=== PATIENT | male | born 1950 | race Caucasian/White ===

== ENCOUNTER 2019-10-29 21:20 | Inpatient (IN) | payer MEDICARE, SELFPAY ==
[2019-10-29] VITALS (14 sets, daily range): BP systolic 129–151; BP diastolic 58–77; PULSE 100–128; RESP 20–26; TEMP 37.1; O2SAT 88–96
--- NOTE | 2019-10-29 21:30 | RT.EKG_ITS ---
APPROVED REPORT Exam: Resting ECG Patient Location: E HR:109 bpm ECG Measurements Heart Rate 109 AXIS IL 198 P 82 QRSd 97 QRS 113 QT 346 T 13 QTc 467 Conclusion Sinus tachycardia...rate> 99 Atrial premature complex...SV complex w/ short R-R interval Right axis deviation...QRS axis ( 91,269) Abnrm R prog, consider ASMI or lead placement...Q >30mS, diminished R, V1-V2
--- NOTE | 2019-10-29 21:30 | DI.CT_ITS ---
EXAM: CT CHEST PE CTA CLINICAL HISTORY: shortness of breath, fever, tachycardic, hypoxia. TECHNIQUE: Imaging Protocol: Axial CT angiography was performed with multi-slice acquisition and mu lti-planar and/or 3D reconstructions. CONTRAST MATERIAL: Intravenous: Omnipaque 350 Contrast volume:100 cc COMPARISON: No exams were available for comparison FINDINGS: Exam is somewhat limited by respiratory motion. Pulmonary Arteries: No evidence of filling defect to suggest pulmonary emboli. Tracheobronchial tree: Patent where visualized. Mediastinum and Mishel: No dominant adenopathy or fluid collection. Pulmonary parenchyma: No consolidation or dominant measurable mass. Emphysematous changes at the uppe r lobes.. Pleura: No effusion or pneumothorax. Heart: The heart is not dilated. coronary artery calcifications are seen. Aorta: Thoracic aorta non-dilated. Upper abdomen: Fatty liver. Small hiatal hernia. Bones: Degenerative disc changes. IMPRESSION: No evidence of pulmonary embolism or other acute abnormality. Mild emphysematous changes.. RADIATION DOSE DELIVERED: 530.57mGy.cm Total DLP DATA REPOSITORY: All CT scans at this facility are submitted to the National Radiology Data Registry (NRDR) Dose Index Registry (DIR) with the [employer] (ACR). RADIATION OPTIMIZATION: All CT scans at this facility use at least one of these dose optimization te chniques: automated exposure control; mA and/or kV adjustment per patient size (includes targeted exa ms where dose is matched to clinical indication); or iterative reconstruction.
[2019-10-29 22:11] LABS: Abs Immature Grans 0.21 10^3/uL (0.0-0.06); Absolute Basophil Count 0.04 10^3/uL (0.0-0.2); Absolute Lymphocyte Count 0.62 10^3/uL (1.2-3.4); Basophils % 0.2; HCT 43.7 % (40.0-50.0); HGB 14.2 g/dL (13.5-17.5); Lymphocytes % 3.1; MCH 29.3 pg (27.0-33.0); MCHC 32.5 % (32.0-36.0); MCV 90.3 fL (80-95); MPV 9.5 fL (8.0-11.0); Neutrophils % 90.7; Nucleated RBC 0 %; Platelet Count 261 10^3/uL (130-400); RBC 4.84 10^6/uL (4.36-5.78); RDW 12.8 % (11.8-14.1); RDW-SD 42.4 fL; WBC 20.07 10^3/uL (4.4-10.8)
[2019-10-29 22:15] LABS: Lactate 2.5 mmol/L (0.6-1.4)
--- NOTE | 2019-10-29 22:22 | W.ED.GENAD ---
Discharge Plan Disposition Patient Disposition: [facility] INPATIENT Condition: Critical Discharge Details Chief Complaint: Fever Clinical Impression: Cellulitis of left lower extremity, Sepsis Primary Care Provider: Martha Valera ED Provider: Nav Montes Home Meds and New Rx's Prescriptions: No Action calcium carbonate [Calcium 500] 500 mg calcium (1,250 mg) tablet 500 mg PO DAILY RF: 0 magnesium oxide 250 MG tablet 250 mg PO DAILY RF: 0 cinnamon bark 500 MG capsule 500 mg PO DAILY RF: 0 aspirin 81 MG tablet,delayed release (DR/EC) 81 mg PO PRN RF: 0 Medical Decision Making 68-year-old male smoker here with fever today, some shortness of breath and dizziness, open wounds weeping orange discharge left lower extremity with surrounding erythema. Patient recently febrile and now afebrile after Tylenol. Patient is diaphoretic. He is tachycardic. Mildly hypoxic at 94% on room air on arrival. Normotensive. I am concerned about cellulitis. Patient is septic. We will give 1 L crystalloid IV fluid bolus. Will initiate early antibiotic treatment broad-spectrum with vancomycin IV to cover for MRSA and Zosyn IV. Will obtain x-ray of the right lower extremity to assess for any bony changes or air in the soft tissue. Consider COVID-19 although less likely given no known exposures or travel. I will consider pulmonary embolism given lower extremity swelling, tachycardia and hypoxia. Plan to obtain CT of the chest. --Labs reviewed and significant leukocytosis noted. Patient does have elevated lactate. 23:20 --patient has received 1 L crystalloid bolus and heart rate is improved and now 100. Blood pressure remained stable. Patient receiving antibiotics. I called and spoke with Dr. Green who will admit the patient to the ICU for sepsis likely secondary to cellulitis left lower extremity. X-ray of left lower extremity and CT of the chest pending. I believe patient is low likelihood for COVID-19 but will send COVID-19 testing and maintain precautions. I spoke to the patient's son about plan to admit. Care transition to Dr. Green. CT and x-ray pending at time of admission. HPI General Mode of arrival: ambulatory. Date/Time Provider Initiated Documentation: 10/29/19 21:41. Limitations to Documentation: no limitations. Information obtained by: patient. HPI Narrative: 68-year-old male presents with chief complaint of fever. Patient notes fever started today and has been persistent. Fever has been as high as 102.8F. He did take Tylenol 1 g prior to arrival and this did help his fever. Patient notes associated feeling of dizziness. He also notes some new onset mild shortness of breath with exertion today. Patient states he scraped his left lower leg about a month ago and has had a wound that has been slowly healing. He notes recently he has had some discharge from his wounds on his left lower extremity. Discharge is yellow/orange. Related Data Home Medications Medication Instructions Recorded Confirmed aspirin 81 mg PO PRN tab 09/22/16 11/10/16 cinnamon bark 500 mg PO DAILY 09/22/16 11/10/16 magnesium oxide 250 mg PO DAILY 09/22/16 11/10/16 calcium carbonate 500 mg calcium 500 mg PO DAILY 09/15/19 (1,250 mg) tablet Allergies Allergy/AdvReac Type Severity Reaction Status Date / Time hay fever Allergy Mild runny nose Uncoded 10/30/19 00:23 and cough General Stated Complaint: Fever MONY: 3 Review of Systems All systems reviewed & are unremarkable except as noted in HPI and below Constitutional Constitutional: Reports fever(s) ENT Ears, Nose, Mouth, and Throat: Reports dizziness Cardiovascular Cardiovascular: Denies chest pain and Reports dyspnea Respiratory Respiratory: Reports dyspnea Gastrointestinal Gastrointestinal: Denies abdominal pain Integumentary/Breasts Skin/Breast: Reports as per HPI Neurologic Neurologic: Reports dizziness [facility] Medical History Hyperlipidemia, unspecified (Chronic) Hypothyroidism (Chronic) IFG (impaired fasting glucose) (Chronic) Obesity (Chronic) Tobacco use disorder (Chronic) Surgical History Colonoscopy - [facility] [place] (11/10/16) Orchiectomy, Radical Left, s/p trauma Repair, ACL Right-Age 17 Family History Father , [place]? at age 79. Essential hypertension Myocardial infarction Maternal Aunt Neoplasm Adnexa NOS Maternal Grandmother Neoplasm Adnexa NOS Mother , CVA & PNA at age 81. Essential hypertension Stroke Paternal Grandfather Myocardial infarction Sister No problems noted. Brother No problems noted. Social History Smoking/Tobacco Use Status: Current every day Alcohol Intake: current Alcohol Intake frequency: a few times a month Drug use: Never Substance use type: does not use Do you feel safe at home: Yes Do you feel safe in your relationship?: Yes Exam Const General: cooperative and well developed Orientation: alert and awake HENMT Mouth: moist mucous membranes Eyes Conjunctivae: normal conjunctivae Sclera: normal sclerae Neck Neck: trachea midline, supple and no JVD Resp Auscultation: clear to auscultation bilaterally, no rales, no rhonchi and no wheezes Cardio Jugular venous pressure: no JVD Rate: tachycardic Rhythm: regular rhythm Heart Sounds: no murmurs GI Palpation: soft, not firm, no guarding, no masses, not rigid and nontender Skin Rashes: rashes noted (Erythema with some focal ulcers, weeping orange discharge) Neuro General: patient alert, patient awake and tone normal Extrem General: no calf tenderness and edema Laterality: bilateral (1+ pitting bilateral to proximal lower legs) Left lower extremity: lower leg (Few focal ulcerations weeping orange discharge with surrounding erythema) Details: erythema, pitting edema and warmth; no crepitus Psych Appearance: grossly normal Mental Status: mental status grossly normal Course Vital Signs Vital signs: Vital Signs Temperature 37.1 C 10/29/19 21:33 Pulse 128 H 10/29/19 21:33 Respiratory Rate 23 10/29/19 21:33 Blood Pressure 143/58 H 10/29/19 21:33 Pulse Oximetry 94 L 10/29/19 21:33 Temperature 37.1 C 10/29/19 21:33 Temperature Source Oral 10/29/19 21:33 Pulse 128 H 10/29/19 21:33 Respiratory Rate 23 10/29/19 21:33 Respiratory Effort 10/29/19 21:37 Blood Pressure 143/58 H 10/29/19 21:33 Blood Pressure Position Sitting 10/29/19 21:33 Pulse Oximetry 94 L 10/29/19 21:33 Oxygen Delivery Method Room Air 10/29/19 21:33 Oxygen Flow Rate 0 10/29/19 21:33 Pain Level 0 10/29/19 21:33 Lab/Test Results Lab/Test Results: 10/29/19 21:41 Blood Blood Culture - Pending 10/29/19 21:41 Blood Blood Culture - Pending Laboratory Tests Range/Units 10/29/19 10/29/19 21:50 21:50 WBC (4.4-10.8) 10^3/uL 20.07 H RBC (4.36-5.78) 10^6/uL 4.84 Hgb (13.5-17.5) g/dL 14.2 Hct (40.0-50.0) % 43.7 MCV (80-95) fL 90.3 MCH (27.0-33.0) pg 29.3 MCHC (32.0-36.0) % 32.5 RDW (11.8-14.1) % 12.8 Plt Count (130-400) 10^3/uL 261 MPV (8.0-11.0) fL 9.5 Immature Gran % 1.0 Neutrophils % 90.7 Lymphocytes % 3.1 Monocytes % 5.0 Eosinophils % 0.0 Basophils % 0.2 Absolute Neutrophils (1.2-6.7) 10^3/uL 18.20 H Absolute Lymphocytes (1.2-3.4) 10^3/uL 0.62 L Absolute Monocytes (0.1-0.8) 10^3/uL 1.00 H Absolute Eosinophils (0.0-0.7) 10^3/uL 0.00 Absolute Basophils (0.0-0.2) 10^3/uL 0.04 Lactate (0.6-1.4) mmol/L 2.5 H* Critical Care Time Critical Care Time Critical Care Time: Yes Total Critical Care Time: 40 Attestation: I spent greater than 40. Minutes addressing this patient's immediate life threats. Please see MDM section of note. This time was spent engaged in work directly related to the patient's care, exclusive of separate procedures, and failure to initiate these interventions would have likely resulted in clinically significant or life threatening deterioration in the patient's condition.
[2019-10-29 22:38] LABS: ALT 29 U/L (16-63); AST 16 U/L (15-37); Albumin 3.6 g/dL (3.4-5.0); Alkaline Phosphatase 52 U/L (46-116); Anion Gap 9.4 mmol/L (3-11); BUN 14 mg/dL (7-18); Bilirubin, Total 0.7 mg/dL (0.2-1.0); CO2 27.6 mmol/L (21.0-32.0); CREATININE 1.62 mg/dL (0.70-1.30); Calcium 8.8 mg/dL (8.5-10.1); Chloride 97 mmol/L (98-107); Estimated GFR 42.71 (mL/min/1.73m2); Glucose 250 mg/dL (74-106); Potassium 4.1 mmol/L (3.5-5.1); Sodium 134 mmol/L (136-145); Total Protein 8.3 g/dL (6.4-8.2); Troponin I < 0.05 ng/mL (<0.06)
--- NOTE | 2019-10-29 22:45 | DI.RAD_ITS ---
EXAM: XR TIB/FIB LT CLINICAL HISTORY: infection, ulcers with discharge, pain. TECHNIQUE: 2D digital imaging was performed COMPARISON: No exams were available for comparison FINDINGS: BONES: No acute fracture is present. No bony destructive lesion is seen. Visualized portion of knee a nd ankle joints are show degenerative changes.. SOFT TISSUE: Edema in the subcutaneous fat. IMPRESSION: Edema. No fracture or foreign body.. DATA REPOSITORY: RADIATION DOSE DELIVERED:
[2019-10-29] MEDS: Normal Saline 1,000 ML 1000 ML IV (23:21)
[2019-10-29] MEDS: PIPERACILLIN/TAZO 4.5 GM in Normal Saline 100 ML IVPB (23:25)
--- NOTE | 2019-10-29 23:25 | W.PM.HP.N ---
Date of service: 10/29/19 Time of Service: 23:25 Assessment and Plan Assessment and plan (1) Sepsis syndrome: Start date: 10/29/19 Status: Acute Assessment and plan: This is a 68-year-old gentleman who has a chronic ulcer of his left leg presenting with sepsis syndrome. He also has mild respiratory symptoms and is a smoker with bronchospasm on exam after fluid resuscitation with fluid to be decreased and albuterol HFA to be started. He is not hypoxic. His tachycardia has improved with IV hydration. He will continue on IV antibiotic therapy for cellulitis of left leg. Cultures are pending. He is a full code. (2) Cellulitis and abscess of leg: Start date: 10/29/19 Status: Acute Assessment and plan: Patient was started on IV Zosyn and vancomycin which will be continued with follow-up on cultures. Continue wound care. (3) IFG (impaired fasting glucose): Status: Chronic Assessment and plan: The patient's admitting glucose was greater than 200 and he is most likely NIDDM untreated. Continue glucometers before meals and at bedtime with mealtime short acting insulin coverage. Long-term he needs to be on a diabetic diet and consider oral therapy. (4) COPD (chronic obstructive pulmonary disease) with emphysema: Status: Chronic Assessment and plan: Patient is a smoker and should be offered NicoDerm patch if needed. Continue rescue inhalers with HFA during this COVID-19 pandemic. He is not hypoxic. Long-term he should stop smoking tobacco and follow-up with pulmonology with maximizing respiratory care. He does have pulmonary nodules on CT scan these should be followed up with low-dose radiation CT scanning for screening of lung cancer if he qualifies. Qualifiers: Emphysema type: unspecified Qualified Code(s): J43.9 - Emphysema, unspecified History of Present Illness History of Present Illness Chief Complaint: Fever with swollen red left leg Narrative: This is a 68-year-old male patient who presented with fever, an open ulcer over his left leg which is chronic over the last 3 months but recently has been worsening with increased redness and warmth. He also had tachycardia and was found to have leukocytosis on lab. He was short of breath and slightly diaphoretic but not necessarily hypoxemic or orthostatic. His blood pressures were normal to elevated. He was admitted for sepsis syndrome and cellulitis of his left leg being started on Zosyn with vancomycin. At the time I saw the patient he had had IV hydration and felt better but was still slightly tachycardic at rest. He continues to have some slight shortness of breath and is a smoker but not on inhalers. He was not having chills or rigors and stated that his left leg was slightly tender but not far from baseline other than the increased warmth and redness. 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 He is a full code. Review of Systems Narrative: 13 point review of systems otherwise unrevealing or stable. Patient is overweight. [facility] Medical History Hyperlipidemia, unspecified (Chronic) Hypothyroidism (Chronic) IFG (impaired fasting glucose) (Chronic) Obesity (Chronic) Tobacco use disorder (Chronic) Surgical History Colonoscopy - [facility] [place] (11/10/16) Orchiectomy, Radical Left, s/p trauma Repair, ACL Right-Age 17 Family History Father , [place]? at age 79. Essential hypertension Myocardial infarction Maternal Aunt Neoplasm Adnexa NOS Maternal Grandmother Neoplasm Adnexa NOS Mother , CVA & PNA at age 81. Essential hypertension Stroke Paternal Grandfather Myocardial infarction Sister No problems noted. Brother No problems noted. Social History Smoking/Tobacco Use Status: Current every day Alcohol Intake: current Alcohol Intake frequency: a few times a month Drug use: Never Substance use type: does not use Do you feel safe at home: Yes Do you feel safe in your relationship?: Yes Meds Home Medications and Allergies Home Medications Medication Instructions Recorded Confirmed Type aspirin 81 mg PO PRN tab 09/22/16 10/30/19 History cinnamon bark 500 mg PO DAILY PRN 09/22/16 10/30/19 History magnesium oxide 250 mg PO DAILY PRN 09/22/16 10/30/19 History calcium carbonate 500 mg calcium 500 mg PO DAILY PRN 09/15/19 10/30/19 History (1,250 mg) tablet Allergies Allergy/AdvReac Type Severity Reaction Status Date / Time hay fever Allergy Mild runny nose Uncoded 10/30/19 00:23 and cough Exam Narrative Exam Narrative: General: Patient appears appropriate for age, alert and oriented x3 and in no acute distress. HEENT: Normocephalic, eyes with pupils equal and reactive to light symmetrically and extraocular movement intact with sclera anicteric. Oropharynx with slightly dry oral mucosa. External ears and nose normal. Neck: Supple without JVD. Back: Stooped posture without CVA tenderness. Lungs: Bronchovesicular breath sounds diffusely with fair aeration bilaterally but increased expiratory phase and diffuse scant expiratory wheeze especially with cough. No focalizing rales or rhonchi. Heart: High normal rate with normal rhythm, no appreciable murmurs or gallops. Abdomen: Obese contour, soft and nontender to palpation with no palpable hepatosplenomegaly. Bowel sounds positive in all quadrants. Genitalia/rectal: Exam deferred. Extremities: Nonpitting edema bilaterally, no cyanosis or clubbing with fair range of motion of all joints. There are chronic skin changes of the lower extremities bilaterally with hyperpigmentation, atrophic, shiny skin and the left leg has increased warmth to touch with slight increase edema though not pitting and increased erythema especially over the proximal leg. Bandages over the ulcer are dry. Skin: Normal color, warm and dry with chronic skin changes over lower extremities as mentioned under extremities exam. Neuro: Cranial 2 through 12 gross intact, no focalizing motor deficits. Psych: Normal affect and mood with remote and recent memory intact. Results Imaging Imaging Studies: Exam: CT Angiography Chest With Contrast Exam date and time: 10/29/2019 01:09 Age: 68 years old Clinical indication: Fever and shortness of breath and other: Tachycardic, hypoxia; Patient HX: Shortness of breath, tachycardic, fever, hypoxia TECHNIQUE: Imaging protocol: Computed tomographic angiography of the chest with intravenous contrast. 3D rendering: MIP and/or 3D reconstructed images were created by the technologist. COMPARISON: No relevant prior studies available. FINDINGS: Pulmonary arteries: No pulmonary emboli. Aorta: No aortic aneurysm. No aortic dissection. Lungs: Mild pulmonary emphysema. No airspace consolidation. Very minor statistically benign pulmonary nodules. Follow-up as per institutional protocol. Minimal dependent subsegmental atelectasis. Pleural space: No pneumothorax. No pleural effusion. Heart: No cardiomegaly. No pericardial effusion. Lymph nodes: Mildly prominent anterior mediastinal lymph node. Liver: The visualized liver is fatty. Bones/joints: No acute fracture. Soft tissues: No suspicious lesions. IMPRESSION: 1. No pulmonary emboli are seen. 2. Mild pulmonary emphysema. 3. Minimal dependent subsegmental atelectasis. 4. Additional findings as above. Dictated and Authenticated by: Windy Mejia MD. Exam: XR Left Tibia and Fibula Exam date and time: 10/29/2019 01:18 Age: 68 years old Clinical indication: Patient HX: Infection, ulcers wth discharge, pain TECHNIQUE: Imaging protocol: XR Left tibia and fibula. Views: 2 views. COMPARISON: No relevant prior studies available. FINDINGS: Bones/joints: No acute fracture or subluxation. No radiographic evidence of osteomyelitis. Soft tissues: Generalized soft tissue swelling. IMPRESSION: No acute bony pathology. Dictated and Authenticated by: Windy Mejia MD. Labs Result diagrams: 10/30/19 06:30 10/30/19 06:30 Labs: Laboratory Results - last 24 hr 10/29/19 10/29/19 10/29/19 21:50 21:50 21:50 WBC 20.07 H RBC 4.84 Hgb 14.2 Hct 43.7 MCV 90.3 MCH 29.3 MCHC 32.5 RDW 12.8 Plt Count 261 MPV 9.5 Immature Gran % 1.0 Neutrophils % 90.7 Lymphocytes % 3.1 Monocytes % 5.0 Eosinophils % 0.0 Basophils % 0.2 Absolute Neutrophils 18.20 H Absolute Lymphocytes 0.62 L Absolute Monocytes 1.00 H Absolute Eosinophils 0.00 Absolute Basophils 0.04 Sodium 134 L Potassium 4.1 Chloride 97 L Carbon Dioxide 27.6 Anion Gap 9.4 BUN 14 Creatinine 1.62 H Estimated GFR/1.73 m2 42.71 Glucose 250 H Lactate 2.5 H* Calcium 8.8 Total Bilirubin 0.7 AST 16 ALT 29 Alkaline Phosphatase 52 Troponin I < 0.05 Total Protein 8.3 H Albumin 3.6 Last Vital Signs Temp 37.1 C 10/29/19 21:33 Pulse 128 H 10/29/19 21:33 Resp 23 10/29/19 21:33 BP 143/58 H 10/29/19 21:33 Pulse Ox 94 L 10/29/19 21:33 COVID-19 Screening Have you,or household,traveled outside [place] in last 14 days?: No Had IN PERSON contact w/suspected or confirmed C-19 person: No
[2019-10-29] MEDS: VANCOMYCIN 1,500 MG in Normal Saline 250 ML 166.6666 MG IVPB (23:50)
[2019-10-30] VITALS (46 sets, daily range): BP systolic 126–176; BP diastolic 53–106; PULSE 89–113; RESP 16–31; TEMP 37.1–38.8; O2SAT 90–97
--- NOTE | 2019-10-30 01:35 | DI.VRAD_ITS ---
PROCEDURE INFORMATION: Exam: CT Angiography Chest With Contrast Exam date and time: 10/29/2019 01:09 Age: 68 years old Clinical indication: Fever and shortness of breath and other: Tachycardic, hypoxia; Patient HX: Shortness of breath, tachycardic, fever, hypoxia TECHNIQUE: Imaging protocol: Computed tomographic angiography of the chest with intravenous contrast. 3D rendering: MIP and/or 3D reconstructed images were created by the technologist. COMPARISON: No relevant prior studies available. FINDINGS: Pulmonary arteries: No pulmonary emboli. Aorta: No aortic aneurysm. No aortic dissection. Lungs: Mild pulmonary emphysema. No airspace consolidation. Very minor statistically benign pulmonary nodules. Follow-up as per institutional protocol. Minimal dependent subsegmental atelectasis. Pleural space: No pneumothorax. No pleural effusion. Heart: No cardiomegaly. No pericardial effusion. Lymph nodes: Mildly prominent anterior mediastinal lymph node. Liver: The visualized liver is fatty. Bones/joints: No acute fracture. Soft tissues: No suspicious lesions. IMPRESSION: 1. No pulmonary emboli are seen. 2. Mild pulmonary emphysema. 3. Minimal dependent subsegmental atelectasis. 4. Additional findings as above. Dictated and Authenticated by: Windy Mejia MD. Ordering:BRANDI Chopra MD
--- NOTE | 2019-10-30 01:36 | DI.VRAD_ITS ---
PROCEDURE INFORMATION: Exam: XR Left Tibia and Fibula Exam date and time: 10/29/2019 01:18 Age: 68 years old Clinical indication: Patient HX: Infection, ulcers wth discharge, pain TECHNIQUE: Imaging protocol: XR Left tibia and fibula. Views: 2 views. COMPARISON: No relevant prior studies available. FINDINGS: Bones/joints: No acute fracture or subluxation. No radiographic evidence of osteomyelitis. Soft tissues: Generalized soft tissue swelling. IMPRESSION: No acute bony pathology. Dictated and Authenticated by: Windy Mejia MD. Ordering:BRANDI Chopra MD
--- NOTE | 2019-10-30 02:33 | NUR.NOTE ---
Nursing Note: BC#1
--- NOTE | 2019-10-30 02:38 | NUR.NOTE ---
COVID Swab obtained from [facility] and sent to the lab.
[2019-10-30] MEDS: Acetaminophen 325 MG TAB 650 MG PO ×2 (03:20→21:06)
[2019-10-30] MEDS: Normal Saline 1,000 ML 150 ML IV (03:21)
[2019-10-30] MEDS: PIPERACILLIN/TAZO 3.375 GM in Normal Saline 50 ML IVPB ×2 (04:53→10:25)
[2019-10-30] MEDS: Heparin 5,000 UNITS/ML VIAL 5000 UNITS SC (05:04)
[2019-10-30 06:48] LABS: Lactate 1.3 mmol/L (0.6-1.4)
[2019-10-30 06:56] LABS: Abs Immature Grans 0.12 10^3/uL (0.0-0.06); Absolute Basophil Count 0.04 10^3/uL (0.0-0.2); Absolute Eosinophil Count 0.14 10^3/uL (0.0-0.7); Absolute Lymphocyte Count 1.12 10^3/uL (1.2-3.4); Basophils % 0.2; Eosinophils % 0.8; HCT 42.4 % (40.0-50.0); HGB 13.7 g/dL (13.5-17.5); Immature Grans % 0.7; Lymphocytes % 6.2; MCHC 32.3 % (32.0-36.0); MCV 89.6 fL (80-95); MPV 9.4 fL (8.0-11.0); Monocytes % 3.9; Neutrophils % 88.2; Nucleated RBC 0 %; Platelet Count 230 10^3/uL (130-400); RBC 4.73 10^6/uL (4.36-5.78); RDW-SD 42.7 fL; WBC 18.04 10^3/uL (4.4-10.8)
[2019-10-30 07:00] LABS: Absolute Neutrophil Count 15.91 10^3/uL (1.2-6.7)
[2019-10-30 07:04] LABS: ALT 26 U/L (16-63); AST 19 U/L (15-37); Albumin 3.3 g/dL (3.4-5.0); Alkaline Phosphatase 48 U/L (46-116); Anion Gap 9.5 mmol/L (3-11); BUN 14 mg/dL (7-18); Bilirubin, Total 1.2 mg/dL (0.2-1.0); CO2 25.5 mmol/L (21.0-32.0); CREATININE 1.39 mg/dL (0.70-1.30); Calcium 8.4 mg/dL (8.5-10.1); Chloride 100 mmol/L (98-107); Estimated GFR 50.97 (mL/min/1.73m2); Glucose 189 mg/dL (74-106); Potassium 4.1 mmol/L (3.5-5.1); Sodium 135 mmol/L (136-145); Total Protein 7.9 g/dL (6.4-8.2)
[2019-10-30 07:14] LABS: TSH 5.33 uIU/mL (0.36-3.74)
[2019-10-30] MEDS: Calcium Carbonate 1.25 GM TAB PO (08:17)
[2019-10-30] MEDS: Magnesium Oxide 400 MG TAB 200 MG PO (08:17)
[2019-10-30] MEDS: Insulin Aspart 300 UNITS/3 ML PEN SC ×4 (08:47→21:20)
--- NOTE | 2019-10-30 08:47 | INITIAL_ITS ---
- If Service Date Differs Date of service: 10/30/19 Time of Service: 08:47 Care Management Initial Assess REASON FOR HOSPITALIZATION:: Sepsis syndrome and cellulitis PAST MEDICAL HISTORY/PAST SURGICAL HISTORY:: Medical History . Hyperlipidemia, unspecified (Chronic). Hypothyroidism (Chronic). IFG (impaired fasting glucose) (Chronic). Obesity (Chronic). Tobacco use disorder (Chronic). Surgical History . Colonoscopy - [facility] (11/10/16). Orchiectomy, Radical. Left, s/p trauma. Repair, ACL. Right-Age 17 PREVIOUS FUNCTIONAL STATUS/SOCIAL/FAMILY SUPPORTS:: Mejia lives in [facility] with his Marifer, son Сергей and mother and [id number]. He also has a daughter who has given them 4 grandchildren. Mejia and Marifer lived in [place] but moved to [place] about 16 years ago. 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 Mejia is independent and receives no community services. CURRENT FUNCTIONAL STATUS:: Mejia was sitting on the side of the bed when CM met with him. He was very pleasant and engaged readily with CM. He shared some of his experiences while living in [place]. and some of the challenges he faces with his elderly in-laws. Mejia's stated thast his also continues to work and that the family is very close and supportive of one another. ADVANCE DIRECTIVES:: none on file. provided with copies of the [employer] AD forms Has patient been provided with info about the portal/API?: Yes Did the patient sign up for the portal?: Yes (previously) CODE STATUS:: Full Code INSURANCE COVERAGE / FINANCIAL ISSUES:: Medicare CURRENT HOME/COMMUNITY SERVICES/EQUIPMENT:: none PRIMARY CARE PHYSICIAN:: Martha Valera POTENTIAL DISCHARGE NEEDS:: Follow up with PCP and discharge plan of care PATIENT/FAMILY EDUCATION NEEDS:: Discharge plan, limitations, follow up plan, Ask Me Three TRANSPORTATION:: via private vehicle with family PLAN:: Mejia will likely be discharged home with no new services, unless there is a need for manager of creative services IV antibiotics. He will follow up with his PCP and discharge plan of care and transport home with family. CM will continue to support Mejia, his family and assess for discharge planning needs.
[2019-10-30] MEDS: Normal Saline Flush 10 ML SYR IVP ×3 (08:56→19:44)
[2019-10-30 09:42] LABS: Bilirubin Negative (Negative); Blood Small (Negative); Clarity Clear (Clear); Glucose 100 mg/dL (Negative); Ketones Negative (Negative); Leukocyte Esterase Negative (Negative); Nitrite Negative (Negative); Specific Gravity 1.025 (1.005-1.025); pH 5.5 (5-8)
[2019-10-30 09:53] LABS: Bacteria Negative HPF (Negative); C & S Indicated? No; Casts Negative LPF (Negative); Crystals Moderate Amorphous HPF (Negative); Epithelial Cells Few HPF (Negative); Mucus Negative (Negative); WBC 0-2 HPF (0-5)
--- NOTE | 2019-10-30 11:22 | PGE_ITS ---
Date of Service Date of service: 10/30/19 Time of Service: 11:23 Assessment and Plan Assessment and plan (1) Sepsis syndrome: Status: Acute Assessment and plan: Hemodynamically the patient is stabilized and has shown improvement in his renal function with IV fluid hydration. Patient is now alert and oriented has been responding to antibiotics. At this time I think he no longer requires hemodynamic monitoring with telemetry and can be transferred from ICU to the medical/surgical floor. He will continue with antibiotic treatment. Changes Zosyn to meropenem to improve his coverage for anaerobes as well as Pseudomonas. Continue with vancomycin. Awaiting results of blood cultures. We will continue with local wound care of his leg and do a work-up of his chronic bilateral leg edema. (2) Cellulitis and abscess of leg: Status: Acute Assessment and plan: X-ray of his left leg showed soft tissue swelling but no bony abnormality to suggest an osteomyelitis and no evidence of gas in the tissue to suggest a fasciitis. Clinically he is improving we will continue to treat for diabetic cellulitis. Goal will be to improve the edema in his legs and to improve his glucose control and adjust his antibiotics. (3) COPD (chronic obstructive pulmonary disease) with emphysema: Status: Chronic Assessment and plan: CT scan is consistent with emphysema. We will get screening spirometry studies in the morning and get an echocardiogram to evaluate for pulmonary hypertension. Qualifiers: Emphysema type: unspecified Qualified Code(s): J43.9 - Emphysema, unspecified (4) Uncontrolled type 2 diabetes mellitus with complication: Status: Acute Assessment and plan: Patient has diminished pedal pulses but should have a formal TIERNEY study. While he is hospitalized we will treat with basal bolus insulin and I will add additional NovoLog for carb coverage. Upon discharge he should be considered for GLP-1 agonist. (5) Hypothyroidism: Status: Suspected Assessment and plan: Patient has a mildly TSH for which she is asymptomatic. Will check a free T4 in the morning. If his free T4 is low then I will start low-dose levothyroxine otherwise I will just repeat his TSH in 6 to 8 weeks as an outpatient as he may just be euthyroid sick. Qualifiers: Hypothyroidism type: acquired Qualified Code(s): E03.9 - Hypothyroidism, unspecified (6) Obesity: Status: Chronic Assessment and plan: Patient needs to meet with the dietitian to work on a calorie restricted plan to help with his diabetes and weight control. He also should have an outpatient sleep study to rule out obstructive sleep apnea which may be a contributing factor to his chronic leg edema. Qualifiers: Obesity type: unspecified obesity type Obesity classification: adult class 2 (BMI 35 - 39.9) Serious obesity comorbidity presence: with serious comorbidity Body mass index: BMI 38.0-38.9 Qualified Code(s): E66.01 - Morbid (severe) obesity due to excess calories; Z68.38 - Body mass index (BMI) 38.0- 38.9, adult (7) Hyperlipidemia, unspecified: Status: Suspected Assessment and plan: I will obtain a lipid profile in the morning and then start him on a statin for tomorrow evening. Qualifiers: Hyperlipidemia type: unspecified Qualified Code(s): E78.5 - Hyperlipidemia, unspecified (8) Leg edema: Status: Chronic Assessment and plan: I will proceed with a work-up of his chronic bilateral leg edema including a venous duplex scan of his legs in the morning. We will also get an echocardiogram in the morning to evaluate for pulmonary hypertension and RV dysfunction. Upon discharge should be set up with a referral to the sleep lab for PSG. We may also need to do an ultrasound of his liver looking for fatty liver changes. Once the cellulitis is improving he should be fitted for thigh-high support stockings with a compression rating of 20 to 30 cm Subjective Subjective Interval history since last seen: See Dr. Davin Green's admission H&P for details. In summary this 68-year-old male smoker has longstanding bilateral leg edema for the last several months and has not been following up with any primary care provider. His indicated that they have made arrangements for him to see a PCP but in the interim he has developed an open sore of his left tibia with weeping fluid and pus. He presented emergency department even no this is been going on for months because now he developed a fever of 102 along with chills and some shortness of breath. Work-up in the emergency room last night included blood cultures lab work as well as a CT of his chest for which she was found to have emphysematous changes but no pneumonia and no pulmonary emboli. X-ray of his left leg showed no bony abnormalities but showed soft tissue swelling with no pockets of gas. After obtaining blood cultures he was started on broad-spectrum antibiotics including Zosyn and vancomycin. He was given IV fluids overnight and is feeling markedly better this morning. His blood lactate level has returned to normal and his renal function is improving. . Creatinine is down to 1.39 this morning. Exam Narrative Exam Narrative: Morbidly obese male sitting up at the bedside with his left leg exposed for my examination. He is alert and oriented person place time circumstance. He is in no acute distress. Answers all the questions appropriately. He admits to continued smoking about a half a pack per day and knows he needs to quit smoking. His indicated me that he has not seen a doctor in years but they have scheduled with a PCP to follow-up when he leaves the hospital. Neck is obese supple nontender no JVD. Lungs with diffuse scattered end expiratory wheezes. No rhonchi no rales. Heart regular rate and rhythm without murmur rub or gallop. Abdomen is obese soft and nontender. Legs have 3+ tense edema of his right leg and 4+ edema of his left leg. Left leg has an open sore over the pretibial surface with weeping fluid. Pedal pulses are palpable but diminished in both feet. He has dependent rubor of his feet and toes. Objective Objective Clinical Data: Abnormal lab results 10/29/19 10/29/19 10/29/19 Range/Units 21:50 21:50 21:50 WBC 20.07 H (4.4-10.8) 10^3/uL Absolute Neutrophils 18.20 H (1.2-6.7) 10^3/uL Absolute Lymphocytes 0.62 L (1.2-3.4) 10^3/uL Absolute Monocytes 1.00 H (0.1-0.8) 10^3/uL Sodium 134 L (136-145) mmol/L Chloride 97 L (98-107) mmol/L Creatinine 1.62 H (0.70-1.30) mg/dL Glucose 250 H (74-106) mg/dL Lactate 2.5 H* (0.6-1.4) mmol/L Calcium (8.5-10.1) mg/dL Total Bilirubin (0.2-1.0) mg/dL Total Protein 8.3 H (6.4-8.2) g/dL Albumin (3.4-5.0) g/dL TSH (0.36-3.74) uIU/mL Urine Protein (Negative) mg/dL Urine Blood (Negative) Urine Urobilinogen (Up TO 0.2) EU/dL Urine RBC (0-2) [facility] 10/30/19 10/30/19 10/30/19 Range/Units 06:30 06:30 06:30 WBC 18.04 H (4.4-10.8) 10^3/uL Absolute Neutrophils 15.91 H (1.2-6.7) 10^3/uL Absolute Lymphocytes 1.12 L (1.2-3.4) 10^3/uL Absolute Monocytes (0.1-0.8) 10^3/uL Sodium 135 L (136-145) mmol/L Chloride (98-107) mmol/L Creatinine 1.39 H (0.70-1.30) mg/dL Glucose 189 H (74-106) mg/dL Lactate (0.6-1.4) mmol/L Calcium 8.4 L (8.5-10.1) mg/dL Total Bilirubin 1.2 H (0.2-1.0) mg/dL Total Protein (6.4-8.2) g/dL Albumin 3.3 L (3.4-5.0) g/dL TSH 5.33 H (0.36-3.74) uIU/mL Urine Protein (Negative) mg/dL Urine Blood (Negative) Urine Urobilinogen (Up TO 0.2) EU/dL Urine RBC (0-2) [facility] 10/30/19 Range/Units 09:10 WBC (4.4-10.8) 10^3/uL Absolute Neutrophils (1.2-6.7) 10^3/uL Absolute Lymphocytes (1.2-3.4) 10^3/uL Absolute Monocytes (0.1-0.8) 10^3/uL Sodium (136-145) mmol/L Chloride (98-107) mmol/L Creatinine (0.70-1.30) mg/dL Glucose (74-106) mg/dL Lactate (0.6-1.4) mmol/L Calcium (8.5-10.1) mg/dL Total Bilirubin (0.2-1.0) mg/dL Total Protein (6.4-8.2) g/dL Albumin (3.4-5.0) g/dL TSH (0.36-3.74) uIU/mL Urine Protein 100 H (Negative) mg/dL Urine Blood Small H (Negative) Urine Urobilinogen 2.0 H (Up TO 0.2) EU/dL Urine RBC 3-5 H (0-2) HPF Vital Signs Temperature 37.4 C 10/30/19 09:00 Temperature Source Temporal Artery Scan 10/30/19 09:00 Pulse 96 H 10/30/19 09:00 Pulse 93 H 10/30/19 08:46 Respiratory Rate 19 10/30/19 09:00 Respiratory Effort Non-Labored 10/30/19 09:00 Respiratory Depth Normal 10/30/19 09:00 Respiratory Pattern Normal 10/30/19 09:00 Blood Pressure 153/90 H 10/30/19 08:46 Blood Pressure Mean 103 10/30/19 08:46 Blood Pressure Position Sitting 10/30/19 09:00 Pulse Oximetry 96 10/30/19 09:00 Oxygen Delivery Method Room Air 10/30/19 09:00 Oxygen Flow Rate 0 10/30/19 09:00 Pain Level 0 10/30/19 09:00 Intake & Output 10/29/19 10/29/19 10/30/19 11:59 23:59 11:59 Intake Total 100 / 100 3020 / 3020 Output Total 570 / 570 Balance 100 / 100 2450 / 2450 Weight 117.934 kg 119 kg Intake: IV 100 / 100 2420 / 2420 Oral 600 / 600 Output: Urine 570 / 570 Other: Urine Color Yellow Urine Appearance Clear Urine Odor Normal Comment UA to be collected Voiding Methods Urinal Laboratory Results WBC 18.04 10^3/uL (4.4-10.8) H 10/30/19 06:30 RBC 4.73 10^6/uL (4.36-5.78) 10/30/19 06:30 Hgb 13.7 g/dL (13.5-17.5) 10/30/19 06:30 Hct 42.4 % (40.0-50.0) 10/30/19 06:30 MCV 89.6 fL (80-95) 10/30/19 06:30 MCH 29.0 pg (27.0-33.0) 10/30/19 06:30 MCHC 32.3 % (32.0-36.0) 10/30/19 06:30 RDW 13.0 % (11.8-14.1) 10/30/19 06:30 Plt Count 230 10^3/uL (130-400) 10/30/19 06:30 MPV 9.4 fL (8.0-11.0) 10/30/19 06:30 Immature Gran % 0.7 10/30/19 06:30 Neutrophils % 88.2 10/30/19 06:30 Lymphocytes % 6.2 10/30/19 06:30 Monocytes % 3.9 10/30/19 06:30 Eosinophils % 0.8 10/30/19 06:30 Basophils % 0.2 10/30/19 06:30 Absolute Neutrophils 15.91 10^3/uL (1.2-6.7) H 10/30/19 06:30 Absolute Lymphocytes 1.12 10^3/uL (1.2-3.4) L 10/30/19 06:30 Absolute Monocytes 0.70 10^3/uL (0.1-0.8) 10/30/19 06:30 Absolute Eosinophils 0.14 10^3/uL (0.0-0.7) 10/30/19 06:30 Absolute Basophils 0.04 10^3/uL (0.0-0.2) 10/30/19 06:30 Sodium 135 mmol/L (136-145) L 10/30/19 06:30 Potassium 4.1 mmol/L (3.5-5.1) 10/30/19 06:30 Chloride 100 mmol/L (98-107) 10/30/19 06:30 Carbon Dioxide 25.5 mmol/L (21.0-32.0) 10/30/19 06:30 Anion Gap 9.5 mmol/L (3-11) 10/30/19 06:30 BUN 14 mg/dL (7-18) 10/30/19 06:30 Creatinine 1.39 mg/dL (0.70-1.30) H 10/30/19 06:30 Estimated GFR/1.73 m2 50.97 (mL/min/1.73m2) 10/30/19 06:30 Glucose 189 mg/dL (74-106) H 10/30/19 06:30 Hemoglobin A1c Cancelled 10/30/19 09:33 Lactate Cancelled 10/30/19 Unknown Calcium 8.4 mg/dL (8.5-10.1) L 10/30/19 06:30 Total Bilirubin 1.2 mg/dL (0.2-1.0) H 10/30/19 06:30 AST 19 U/L (15-37) 10/30/19 06:30 ALT 26 U/L (16-63) 10/30/19 06:30 Alkaline Phosphatase 48 U/L (46-116) 10/30/19 06:30 Troponin I < 0.05 ng/mL (<0.06) 10/29/19 21:50 Total Protein 7.9 g/dL (6.4-8.2) 10/30/19 06:30 Albumin 3.3 g/dL (3.4-5.0) L 10/30/19 06:30 TSH 5.33 uIU/mL (0.36-3.74) H 10/30/19 06:30 Urine Color Yellow (Yellow) 10/30/19 09:10 Urine Clarity Clear (Clear) 10/30/19 09:10 Urine pH 5.5 (5-8) 10/30/19 09:10 Ur Specific [place] 1.025 (1.005-1.025) 10/30/19 09:10 Urine Protein 100 mg/dL (Negative) H 10/30/19 09:10 Urine Ketones Negative mg/dL (Negative) 10/30/19 09:10 Urine Blood Small (Negative) H 10/30/19 09:10 Urine Nitrite Negative (Negative) 10/30/19 09:10 Urine Bilirubin Negative (Negative) 10/30/19 09:10 Urine Urobilinogen 2.0 EU/dL (Up TO 0.2) H 10/30/19 09:10 Ur Leukocyte Esterase Negative (Negative) 10/30/19 09:10 Urine RBC 3-5 HPF (0-2) H 10/30/19 09:10 Urine WBC 0-2 HPF (0-5) 10/30/19 09:10 Ur Epithelial Cells Few HPF (Negative) 10/30/19 09:10 Urine Crystals Moderate amorphous HPF (Negative) 10/30/19 09:10 Urine Bacteria Negative HPF (Negative) 10/30/19 09:10 Urine Casts Negative LPF (Negative) 10/30/19 09:10 Urine Mucus Negative (Negative) 10/30/19 09:10 Ur Culture Indicated? No 10/30/19 09:10 Urine Glucose 100 mg/dL (Negative) 10/30/19 09:10
[2019-10-30 11:36] LABS: Hemoglobin A1C 9.5 % (3.8-5.6)
[2019-10-30 12:15] LABS: NT-proBNP 724 pg/mL (<300)
[2019-10-30] MEDS: MEROPENEM 1 GM in Normal Saline 100 ML IVPB ×2 (12:22→19:45)
[2019-10-30] MEDS: Nicotine 21 MG/24 HR PATCH TD (12:23)
--- NOTE | 2019-10-30 12:29 | PHA.REVIEW ---
Pharmacy Admission Review - Admission Clinical Review (Last Updated 10/30/19 @ 10:52 by Davin Green) Uncontrolled type 2 diabetes mellitus with complication (Acute) Cellulitis and abscess of leg (Acute) Sepsis syndrome (Acute) hay fever Allergy (Mild, Uncoded 10/30/19 00:23) runny nose and cough Height 5 ft 9 in Weight 119 kg - Renal Dosing Renal Dosing: BUN 14 mg/dL (7-18) 10/30/19 06:30 Creatinine 1.39 mg/dL (0.70-1.30) H 10/30/19 06:30 Medications needing adjustments: Intervened (Crcl ~65.6 mL/min using adjusted body weight, current meds okay. Talked to provider about meropenem as dose did not need to be renally adjusted.) - Anticoagulation Anticoagulation: Hgb 13.7 g/dL (13.5-17.5) 10/30/19 06:30 Hct 42.4 % (40.0-50.0) 10/30/19 06:30 Plt Count 230 10^3/uL (130-400) 10/30/19 06:30 Creatinine 1.39 mg/dL (0.70-1.30) H 10/30/19 06:30 DVT Prohphylaxis: Reviewed (changed from heparin to enoxaprin) Medications: Enoxaparin - Opiate Usage Evaluate Pain Scale/Pains Meds: N/A - Relevant Labs Sodium 135 mmol/L (136-145) L 10/30/19 06:30 Potassium 4.1 mmol/L (3.5-5.1) 10/30/19 06:30 Chloride 100 mmol/L (98-107) 10/30/19 06:30 Electrolytes, C-Reactive P, ESR: Reviewed - DM Control DM Control: Glucose 189 mg/dL (74-106) H 10/30/19 06:30 Hemoglobin A1c 9.5 H 10/30/19 06:30 Finger Stick Blood Glucose 153 Finger Stick Blood Glucose 179 Insulin Dosing: Reviewed (sliding scale aspart ordered. mentioned other insulin coverage in progress note, but has not been ordered yet.) - Heart Failure/MS Heart Failure/MS: Troponin I < 0.05 ng/mL (<0.06) 10/29/19 21:50 NT-Pro-B Natriuret Pep 724 pg/mL (<300) H 10/30/19 06:30 EF%, MAURA's, B-Blockers, Diuretics: N/A - BP Control BP Control: Blood Pressure 153/90 Blood Pressure 144/78 Blood Pressure 126/106 Blood Pressure 145/82 Blood Pressure 128/53 Blood Pressure 146/81 If elevated: Reviewed (not on any BP meds at home) - Qtc Review If Elevated: N/A (QTc 467) - IV to PO Switch IV Medications: Reviewed - Home Meds Home Med List reviewed: Reviewed Relevent Home Meds Not ordered & why?: cinnamon bark - Current meds Current Medication Order Review: Reviewed - Comments Comments/Follow Ups: Watch BP, BG, Na, for culture results, and for med changes (insulin orders, abx changes). Antibiotic Activity - Pharmacy Antibiotic Review Pharmacy Antibiotic Activity: C/S review (Vanco and meropenem ordered. One blood culture is growing gram+ cocci, the other is still pending.)
[2019-10-30] MEDS: Enoxaparin 40 MG/0.4 ML SYR SC (14:29)
[2019-10-30 14:30] LABS: COVID-19 RT-PCR UVMMC Result Negative (Negative)
[2019-10-30] MEDS: Insulin Glargine 300 UNITS/3 ML PEN 15 UNITS SC (21:14)
--- NOTE | 2019-10-31 | DI.US_ITS ---
EXAM: US EXTREMITY VENOUS BI US EXTREMITY VENOUS BI US EXTREMITY VENOUS BI CLINICAL HISTORY: Bilateral leg edema and pain. Bilateral leg edema and pain Bilateral leg edema and pain TECHNIQUE: Lower extremity venous ultrasound performed using grayscale, color-flow, and spectral Do ppler analysis. COMPARISON: No exams were available for comparison FINDINGS: The common femoral, femoral and popliteal veins demonstrate normal compressibility, augmentation, and color Doppler.There was limited evaluation of the posterior tibial veins due to leg edema. No saphe nous vein thrombosis or other superficial venous thrombosis is seen. No hematoma or Whiting's cyst is seen. IMPRESSION: Negative bilateral lower extremity ultrasound. No evidence of DVT. DATA REPOSITORY:
[2019-10-31] MEDS: Normal Saline Flush 10 ML SYR IVP ×3 (04:31→20:39)
[2019-10-31] MEDS: MEROPENEM 1 GM in Normal Saline 100 ML IVPB (04:31)
--- NOTE | 2019-10-31 07:00 | DI.US_ITS ---
APPROVED REPORT EXAM: Comprehensive 2D, Doppler, and color-flow Echocardiogram Patient Location: In-Patient Room/Bed: [address] Factory Laborer: Daria Ruiz RDCS (AE) Indications: Edema, HTN Other Information Study Quality: Fair Conclusion Left Ventricle : The left ventricle is normal size. The left ventricular systolic function is normal. The left ventricular ejection fraction is within the normal range. Mild concentric left ventricular hypertrophy. There is normal LV segmental wall motion. The left ventricular diastolic function is nor mal. LVEF is 50%. Right Ventricle : The right ventricle is normal size. The right ventricular systolic function is norm al. The RVSP is 36.4mmHg. Atria : The left atrium size is normal. The right atrium size is normal. Valves: There are no hemodynamically significant valvular lesions. Great Vessels : The aortic root is normal in size. The ascending aorta is normal in size. Ascending a roly is not well visualized. The IVC collapses <50% with inspiration. There is no prior study available for comparison. Wall motion Left Ventricle The left ventricle is normal size. The left ventricular systolic function is normal. The left ventric ular ejection fraction is within the normal range. Mild concentric left ventricular hypertrophy. Ther e is normal LV segmental wall motion. The left ventricular diastolic function is normal. There is no ventricular septal defect visualized. LVEF is 50%. Right Ventricle The right ventricle is normal size. The right ventricular systolic function is normal. The RVSP is 36 .4mmHg. Atria The left atrium size is normal. The right atrium size is normal. The interatrial septum is intact wit h no evidence for an atrial septal defect. Aortic Valve Aortic valve is calcified. Aortic valve is trileaflet. No hemodynamically significant valvular aortic stenosis. No aortic regurgitation is present. Mitral Valve Mild mitral annular calcification. No evidence of mitral valve stenosis. Mild mitral regurgitation. Tricuspid Valve The tricuspid valve is normal in structure. There is no tricuspid valve stenosis. Trace to mild tricu spid regurgitation. Pulmonic Valve The pulmonary valve is normal in structure. There is no pulmonic valvular stenosis. Trace pulmonic re gurgitation. Great Vessels The aortic root is normal in size. The ascending aorta is normal in size. Ascending aorta is not well visualized. The IVC collapses <50% with inspiration. Pericardium There is no pericardial effusion. 2D Dimensions IVSD d PLAX 1.33 cm M: 0.6-1.2 LV Vol A2C d MOD 152.7 mL LVPW d PLAX 1.31 cm M: 0.6 - 1.2 LV Vol A4C d MOD 160.1 mL LVID d PLAX 4.65 cm M: 4.2 - 5.8 LA vol/ BSA A2C s A-L 34.2 mL/m2 LVDs 3.45 cm M: 2.5 - 4.0 LA vol/ BSA A4C s A-L 22.1 mL/m2 Ao Root d 2.95 cm M: 3.1 - 3.7 LA Vol/ BSA Biplane s A-L 27.7 mL/m2 RA Area A4C 19.25 cm2 LA Area A4C s MOD 18.34 cm2 RA Vol/ BSA A4C s A-L 24.5 mL/m2 LA Area A2C s MOD 22.67 cm2 Ao Asc Diam d 3.15 cm M: 2.6 - 3.4 LV EF A4C MOD 49.6 % LV EF Teichholz 49.5 % LV EF A2C MOD 51.7 % LVEF (Anthony's) 50.77 % M: 52 - 72 LV EF Biplane MOD 50.8 % LV Volume 113.12 mL M: 62 - 150 SV 80.23 mL LV Volume Index 48.96 mL/m2 M: 34 - 74 SV Index 34.63 mL/m2 LV Vol Biplane MOD 158.0 mL FS 25.00 % M-Mode TAPSE 2.56 cm (M/F) >1.7 LV Diastology MV E' medial 0.095 (>0.07 m/s) E/A Ratio 1.3 LV E/e MED 11.75 (<14) MV E Vmax 1.12 (0.4-1.3 m/s) MV E' lateral 0.119 (>0.1 m/s) MV A Vmax 0.85 (0.4-1.3 m/s) LV E/e LAT 9.45 (<14) MV E/A Ratio 1.26 MV E/E' medial 11.76 MV E/E' lateral 9.46 Aortic Valve LVOT Area 3.38 cm2 AoV Area Vmax 2.17 cm2 LVOT Vmax 1.26 m/s AoV Area/ BSA (Vmax) 0.94 cm2/m2 LVOT Mean Mike. 0.82 m/s CORA Mean Mike. 1.96 cm2 LVOT Peak Grad 6.4 mmHg CORA Mean Mike. Index 0.85 cm2/m2 LVOT Mean Grad 3.1 mmHg LVOT VTI 0.227 m LVOT Diam s 2.05 cm AoV Vmax 1.97 m/s Velocity Ratio 0.63 AoV Mean Mike. 1.40 m/s AoV Peak Grad 15.5 mmHg LVOT SV 76.66 mL AoV Mean Grad 8.9 mmHg AoV VTI 0.331 m AoV Area VTI 2.32 cm2 AoV Area/ BSA (VTI) 1.00 cm/m2 Mitral Valve MV DT 193 (160-240 msec) MV PHT 56 msec MV Area PHT 3.92 cm2 Pulmonary Valve PV Vmax 1.27 (0.5-1.5 m/s) RVOT Peak Gr. 3.57 mmHg PV Peak Grad 6.5 mmHg RVOT Mean Gr. 1.60 mmHg PV Mean Grad 3.3 mmHg RVOT VTI 0.156 m PV VTI 0.203 m RVOT Vmax 0.95 m/s Tricuspid Valve TR Peak Grad 28.3 mmHg TR Vmax 2.66 m/s RA Pressure 8.00 mmHg RVSP (TR) 36.4 mmHg
[2019-10-31 07:11] LABS: Lactate 0.9 mmol/L (0.6-1.4)
[2019-10-31 07:13] LABS: Abs Immature Grans 0.03 10^3/uL (0.0-0.06); Absolute Basophil Count 0.03 10^3/uL (0.0-0.2); Absolute Eosinophil Count 0.12 10^3/uL (0.0-0.7); Absolute Lymphocyte Count 1.34 10^3/uL (1.2-3.4); Absolute Monocyte Count 0.91 10^3/uL (0.1-0.8); Absolute Neutrophil Count 7.74 10^3/uL (1.2-6.7); Basophils % 0.3; Eosinophils % 1.2; HCT 39.4 % (40.0-50.0); HGB 12.8 g/dL (13.5-17.5); Immature Grans % 0.3; Lymphocytes % 13.2; MCH 29.3 pg (27.0-33.0); MCHC 32.5 % (32.0-36.0); MCV 90.2 fL (80-95); MPV 9.1 fL (8.0-11.0); Monocytes % 8.9; Neutrophils % 76.1; Nucleated RBC 0 %; Platelet Count 188 10^3/uL (130-400); RBC 4.37 10^6/uL (4.36-5.78); RDW 13.1 % (11.8-14.1); RDW-SD 42.9 fL; WBC 10.17 10^3/uL (4.4-10.8)
[2019-10-31 07:24] LABS: Anion Gap 9.7 mmol/L (3-11); BUN 15 mg/dL (7-18); CO2 25.3 mmol/L (21.0-32.0); CREATININE 1.28 mg/dL (0.70-1.30); Calcium 9.2 mg/dL (8.5-10.1); Chloride 100 mmol/L (98-107); Estimated GFR 56.06 (mL/min/1.73m2); Glucose 158 mg/dL (74-106); Potassium 4.3 mmol/L (3.5-5.1); Sodium 135 mmol/L (136-145)
[2019-10-31 07:27] LABS: C-Reactive Protein 16.82 mg/dL (0.0-0.3)
[2019-10-31 07:33] LABS: FREE T4 1.14 ng/dL (0.76-1.46)
[2019-10-31 07:39] LABS: Calculated LDL 85 mg/dL (<100); Cholesterol 148 mg/dL (<200); HDL Cholesterol 33 mg/dL (40-60); Triglyceride 153 mg/dL (<150)
[2019-10-31] MEDS: Calcium Carbonate 1.25 GM TAB PO (07:47)
[2019-10-31] MEDS: Magnesium Oxide 400 MG TAB 200 MG PO (07:47)
[2019-10-31] MEDS: Nicotine 21 MG/24 HR PATCH TD (07:47)
[2019-10-31 07:56] VITALS: BP 139/83; PULSE 91; RESP 18; TEMP 37.2; O2SAT 96
[2019-10-31 07:57] LABS: Procalcitonin 1.4 ng/mL
--- NOTE | 2019-10-31 08:37 | PDOC.CMPRO ---
- If Service Date Differs Date of service: 10/31/19 Time of Service: 08:37 Care Management Progress Note S/O:Demetrio is alert and engaged with CM during assessment. He is awaiting sensitivities r/t positive blood cultures to determine treatment course. He is agreeable with plan and feels that he is being well informed. A:Demetrio is a 68 year old male admitted with sepsis, cellulitis, positive blood cultures, with a history of DM. P: Mejia will be discharged home when medically ready. Antibiotic regimen to be determined, IV vs oral abx r/t positive blood cultures. CM to continue to assess for ongoing discharge needs and disposition.
[2019-10-31 08:40] VITALS: BP 175/89; PULSE 74; RESP 20; TEMP 37.2; O2SAT 99
[2019-10-31] MEDS: Insulin Aspart 300 UNITS/3 ML PEN SC ×6 (08:59→21:14)
[2019-10-31] MEDS: CLINDAMYCIN 900 MG/50 ML BAG 50 MG IVPB ×2 (11:26→17:30)
--- NOTE | 2019-10-31 12:31 | PGE_ITS ---
Date of Service Date of service: 10/31/19 Time of Service: 12:31 Assessment and Plan Assessment and plan (1) Cellulitis and abscess of leg: Status: Acute Assessment and plan: 1 out of 2 blood cultures were positive for group B strep bacteremia. Presumably the source is from the cellulitis of his left leg. I have changed his antibiotics from vancomycin and ertapenem over to clindamycin and high-dose oxacillin 2 g IV every 4 hours. Patient will need 14 days of antibiotics for the bacteremia. Patient needs to continue to elevate his legs as much as possible. Once the skin ulceration has healed up he would benefit from compression stockings. For now I will asked nursing to address his edema with leg wraps using Reggie bandages. (2) COPD (chronic obstructive pulmonary disease) with emphysema: Status: Chronic Assessment and plan: CT scan is consistent with emphysema. PFTs are pending at this time. 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 While he is hospitalized we will treat with basal bolus insulin and I will add additional NovoLog for carb coverage. Upon discharge he should be considered for GLP-1 agonist. Blood sugars are still remaining somewhat elevated. His fasting glucose is 143. Have increased his Lantus from 15 units to 18 units. His other blood sugars throughout the day have been reasonable running in the 140s. We will continue with current NovoLog coverage. (4) Hypothyroidism: Status: Suspected Assessment and plan: Patient has a mildly TSH for which she is asymptomatic. Free T4 is normal at 1.14. At this time I am not going to start levothyroxine but rather have him recheck his TSH in 6 to 8 weeks upon discharge. Qualifiers: Hypothyroidism type: acquired Qualified Code(s): E03.9 - Hypothyroidism, unspecified (5) Obesity: Status: Chronic Assessment and plan: Patient needs to meet with the dietitian to work on a calorie restricted plan to help with his diabetes and weight control. He also should have an outpatient sleep study to rule out obstructive sleep apnea which may be a contributing factor to his chronic leg edema. Qualifiers: Obesity type: unspecified obesity type Obesity classification: adult class 2 (BMI 35 - 39.9) Serious obesity comorbidity presence: with serious comorbidity Body mass index: BMI 38.0-38.9 Qualified Code(s): E66.01 - Morbid (severe) obesity due to excess calories; Z68.38 - Body mass index (BMI) 38.0- 38.9, adult (6) Hyperlipidemia, unspecified: Status: Suspected Assessment and plan: Surprisingly his lipids are reasonably controlled despite not being on any prescribed medications. His triglycerides are 153 and total cholesterol 148 with an LDL of 85 and HDL 33. Given his new onset diabetes mellitus he should try to target LDL under 70. I will put him on low- dose atorvastatin 10 mg nightly and have him recheck his LFTs and lipid profile in 6 weeks upon discharge.. Qualifiers: Hyperlipidemia type: unspecified Qualified Code(s): E78.5 - Hyperlipidemia, unspecified (7) Leg edema: Status: Chronic Assessment and plan: We are still working up the etiology of his chronic leg edema. His echo does not show any evidence of systolic or diastolic heart failure and no evidence for pulmonary hypertension. GFR is within normal limits so this cannot be blamed on renal insufficiency. I think were probably dealing with a chronic venous insufficiency situation. Once we get his cellulitis cleared up he should be fitted for thigh-high support stockings with a 20-30 mm compression rating. For now we will treat him with Reggie wraps and elevation. Since he has no evidence for CHF or pulmonary hypertension and he has normal RV function I do not think there is a role for diuretics except in the use of treating his hypertension however for now I am to start him on an REGGIE inhibitor for his hypertension. (8) Essential hypertension: Status: Chronic Assessment and plan: We will start low-dose lisinopril and monitor his blood pressure. This will help not only control his blood pressure but as well as his proteinuria. Subjective Subjective Interval history since last seen: Patient is feeling better this morning although he still has some intermittent burning sensation over his left anterior lower leg where he has cellulitis and a small weeping superficial ulcer. Blood cultures are growing Streptococcus agalactiae group B in 1 out of 2 bottles. I am changing his antibiotics from vancomycin and ertapenem over to clindamycin and high-dose oxacillin. We are still working him up regarding his chronic bilateral leg edema. Venous duplex scan of his leg was negative for DVT. Echocardiogram was pending at the time I saw the patient but is since come back. Left ventricular size is normal left ventricular systolic function is normal. Ejection fraction is 50% no wall motion abnormalities. Right ventricular size and function is normal. RVSP is 36 mm. Left and right atrial size is normal. Aortic root is normal. He does have mild concentric LVH. However diastolic function is normal. Based on this I cannot blame his chronic leg edema due to any CHF. Furthermore he has normal GFR although he is spilling some protein in his urine. He also has some glyco suria which would suggest some early diabetic caused proteinuria. His LFTs were normal on admission. However I suspect he probably has some underlying fatty liver changes from his diabetes and obesity. Patient feels his chronic leg edema is probably from venous insufficiency from many years of standing on his feet for work. Exam Narrative Exam Narrative: Obese male lying in his recliner chair with his legs elevated. No acute distress. Alert and oriented person place time circumst ance. Lungs with scattered end expiratory wheezing. No rhonchi or rales. Heart regular rate and rhythm without appreciable murmur rub or gallop. Abdomen is obese soft and nontender nondistended. Lower extremities with 3+ bilateral edema from the knees down to his feet. Left leg has diffuse erythema from just below the patella to his ankle. There is a superficial skin ulceration over the pretibial surface weeping clear fluid. Right leg has chronic venous stasis skin changes but the skin is dry and elephant like skin. Objective Objective Clinical Data: Abnormal lab results 10/31/19 10/31/19 10/31/19 Range/Units 07:04 07:04 07:04 Hgb 12.8 L (13.5-17.5) g/dL Hct 39.4 L (40.0-50.0) % Absolute Neutrophils 7.74 H (1.2-6.7) 10^3/uL Absolute Monocytes 0.91 H (0.1-0.8) 10^3/uL Sodium 135 L (136-145) mmol/L Glucose 158 H (74-106) mg/dL C-Reactive Protein 16.82 H (0.0-0.3) mg/dL Triglycerides 153 H (<150) mg/dL HDL Cholesterol 33 L (40-60) mg/dL Vital Signs Temperature 37.2 C 10/31/19 08:40 Temperature Source Tympanic 10/31/19 08:40 Pulse 74 10/31/19 08:40 Pulse Rhythm Regular 10/31/19 08:25 Pulse 93 H 10/30/19 12:16 Respiratory Rate 20 10/31/19 08:40 Respiratory Effort 10/31/19 08:25 Respiratory Depth Normal 10/31/19 08:25 Respiratory Pattern Normal 10/31/19 08:25 Blood Pressure 175/89 H 10/31/19 08:40 Blood Pressure Mean 93 10/30/19 12:16 Blood Pressure Position Sitting 10/30/19 09:00 Pulse Oximetry 99 10/31/19 08:40 Oxygen Delivery Method Room Air 10/31/19 08:40 Oxygen Flow Rate 0 10/31/19 08:40 Pain Level 0 10/31/19 07:56 Intake & Output 10/30/19 10/31/19 10/31/19 23:59 11:59 23:59 Intake Total 1160 / 4230 460 / 460 Output Total 1550 / 2120 400 / 400 Balance -390 / 2110 60 / 60 Weight 116.9 kg Intake: IV 610 / 3080 100 / 100 Oral 550 / 1150 360 / 360 Output: Urine 1550 / 2120 400 / 400 Other: Urine Color Yellow Yellow Straw Urine Appearance Clear Clear Urine Odor None Voiding Methods Toilet Laboratory Results WBC 10.17 10^3/uL (4.4-10.8) D 10/31/19 07:04 RBC 4.37 10^6/uL (4.36-5.78) 10/31/19 07:04 Hgb 12.8 g/dL (13.5-17.5) L 10/31/19 07:04 Hct 39.4 % (40.0-50.0) L 10/31/19 07:04 MCV 90.2 fL (80-95) 10/31/19 07:04 MCH 29.3 pg (27.0-33.0) 10/31/19 07:04 MCHC 32.5 % (32.0-36.0) 10/31/19 07:04 RDW 13.1 % (11.8-14.1) 10/31/19 07:04 Plt Count 188 10^3/uL (130-400) 10/31/19 07:04 MPV 9.1 fL (8.0-11.0) 10/31/19 07:04 Immature Gran % 0.3 10/31/19 07:04 Neutrophils % 76.1 10/31/19 07:04 Lymphocytes % 13.2 10/31/19 07:04 Monocytes % 8.9 10/31/19 07:04 Eosinophils % 1.2 10/31/19 07:04 Basophils % 0.3 10/31/19 07:04 Absolute Neutrophils 7.74 10^3/uL (1.2-6.7) H 10/31/19 07:04 Absolute Lymphocytes 1.34 10^3/uL (1.2-3.4) 10/31/19 07:04 Absolute Monocytes 0.91 10^3/uL (0.1-0.8) H 10/31/19 07:04 Absolute Eosinophils 0.12 10^3/uL (0.0-0.7) 10/31/19 07:04 Absolute Basophils 0.03 10^3/uL (0.0-0.2) 10/31/19 07:04 Sodium 135 mmol/L (136-145) L 10/31/19 07:04 Potassium 4.3 mmol/L (3.5-5.1) 10/31/19 07:04 Chloride 100 mmol/L (98-107) 10/31/19 07:04 Carbon Dioxide 25.3 mmol/L (21.0-32.0) 10/31/19 07:04 Anion Gap 9.7 mmol/L (3-11) 10/31/19 07:04 BUN 15 mg/dL (7-18) 10/31/19 07:04 Creatinine 1.28 mg/dL (0.70-1.30) 10/31/19 07:04 Estimated GFR/1.73 m2 56.06 (mL/min/1.73m2) 10/31/19 07:04 Glucose 158 mg/dL (74-106) H 10/31/19 07:04 Hemoglobin A1c Cancelled 10/30/19 09:33 Lactate 0.9 mmol/L (0.6-1.4) 10/31/19 07:04 Calcium 9.2 mg/dL (8.5-10.1) 10/31/19 07:04 Total Bilirubin 1.2 mg/dL (0.2-1.0) H 10/30/19 06:30 AST 19 U/L (15-37) 10/30/19 06:30 ALT 26 U/L (16-63) 10/30/19 06:30 Alkaline Phosphatase 48 U/L (46-116) 10/30/19 06:30 Troponin I < 0.05 ng/mL (<0.06) 10/29/19 21:50 C-Reactive Protein 16.82 mg/dL (0.0-0.3) H 10/31/19 07:04 NT-Pro-B Natriuret Pep 724 pg/mL (<300) H 10/30/19 06:30 Total Protein 7.9 g/dL (6.4-8.2) 10/30/19 06:30 Albumin 3.3 g/dL (3.4-5.0) L 10/30/19 06:30 Triglycerides 153 mg/dL (<150) H 10/31/19 07:04 Total Cholesterol 148 mg/dL (<200) 10/31/19 07:04 LDL Cholesterol, Calc 85 mg/dL (<100) 10/31/19 07:04 HDL Cholesterol 33 mg/dL (40-60) L 10/31/19 07:04 Procalcitonin 1.4 ng/mL 10/31/19 07:04 TSH 5.33 uIU/mL (0.36-3.74) H 10/30/19 06:30 Free T4 1.14 ng/dL (0.76-1.46) 10/31/19 07:04 Urine Color Yellow (Yellow) 10/30/19 09:10 Urine Clarity Clear (Clear) 10/30/19 09:10 Urine pH 5.5 (5-8) 10/30/19 09:10 Ur Specific [place] 1.025 (1.005-1.025) 10/30/19 09:10 Urine Protein 100 mg/dL (Negative) H 10/30/19 09:10 Urine Ketones Negative mg/dL (Negative) 10/30/19 09:10 Urine Blood Small (Negative) H 10/30/19 09:10 Urine Nitrite Negative (Negative) 10/30/19 09:10 Urine Bilirubin Negative (Negative) 10/30/19 09:10 Urine Urobilinogen 2.0 EU/dL (Up TO 0.2) H 10/30/19 09:10 Ur Leukocyte Esterase Negative (Negative) 10/30/19 09:10 Urine RBC 3-5 HPF (0-2) H 10/30/19 09:10 Urine WBC 0-2 HPF (0-5) 10/30/19 09:10 Ur Epithelial Cells Few HPF (Negative) 10/30/19 09:10 Urine Crystals Moderate amorphous HPF (Negative) 10/30/19 09:10 Urine Bacteria Negative HPF (Negative) 10/30/19 09:10 Urine Casts Negative LPF (Negative) 10/30/19 09:10 Urine Mucus Negative (Negative) 10/30/19 09:10 Ur Culture Indicated? No 10/30/19 09:10 Urine Glucose 100 mg/dL (Negative) 10/30/19 09:10 COVID-19 PCR Negative (Negative) 10/30/19 00:15 Nasopharyn COVID-19 PCR Not Applicable 10/30/19 00:15 Ref Test Perform Site [facility] 10/30/19 00:15
--- NOTE | 2019-10-31 14:34 | DM INPTCON_ITS ---
Date of service: 10/31/19 Time of Service: 14:00 Diabetes Inpatient Consult DESCRIPTION/ASSESSMENT: 68 y/o male w/ new diagnosis DM2. He had hx impaired fasting glucose w/ BG of 159 today and A1c 9.5 indicating 3 mos hx >200 mg/dl. Has edema r/t COPD, chronic L Leg ulcer likely r/t untreated DM. Currently 160% IBW w/ BMI 38 indicating obesity. He is on insulin as inpatient and his BG has improved since admission.On CCHO diet reg lori w/ thin lx. He states he is eating well. Nutritional needs: [id number] k/suresh, 116g pro, 1800 ml fluid/ day. Noted: at risk for fluid imbalance r/t edema. family memeber ( ) seems to be a good source of suppoort moving forward to help him manage new DM dx. reports she is familiar with using glucometer r/t family hx DM. INTERVENTION: Provided education on CHO counting, meal planning, risks and benefits of [facility] diet compliance, potential consequences of untreated DM. Recommended 1800 k/suresh day diet to help w/ weight loss. Reviewed diet hx w/ patient and his . Recommended he purchase an inexpensive glucometer or get a prescription from PCP to track BG levels. Provided literature on desired BG ranges for DM2 and suggested appropriate regimen for recording levels. Explained relationship between food choices, portion sizes and BG levels. Recommended Carbs and cals phone helio to help with tracking CHO in foods. Provided take home literature on CHO counting and healthy menu planning. PLAN: Mejia will review literature and get referral for further DM self management education when discharged. Will F/u with MD for glucometer. Monitor l abs and weights. Enc intake of [facility] diet as [place]. Time Spent in Nutritional Counseling and Treatment: 15 minutes
--- NOTE | 2019-10-31 15:09 | CHAPLAIN ---
Demetrio was sitting up in his chair when I visited. His , Marifer, was with him. I introduced myself, explained my role and offered support.
[2019-10-31 15:20] VITALS: BP 147/80; PULSE 91; RESP 19; TEMP 37; O2SAT 94
[2019-10-31] MEDS: Enoxaparin 40 MG/0.4 ML SYR SC (16:21)
[2019-10-31] MEDS: Lisinopril 10 MG TAB PO (16:22)
[2019-10-31] MEDS: Atorvastatin 10 MG TAB PO (20:49)
[2019-10-31] MEDS: Insulin Glargine 300 UNITS/3 ML PEN 18 UNITS SC (21:16)
[2019-10-31 22:43] LABS: PROTEIN 27.3 mg/dL
[2019-10-31 22:44] LABS: COMMENT (LAB VIEW ONLY) 34.73 mg/dL; Prot/Crea Ur Ratio 0.78
[2019-10-31 22:47] LABS: COMMENT (LAB VIEW ONLY) 34.44 mg/dL; Microalb ug/mg Crea 149.2 ug/mg Cr
[2019-11-01] MEDS: CLINDAMYCIN 900 MG/50 ML BAG 50 MG IVPB (01:45)
[2019-11-01 03:58] VITALS: BP 121/79; PULSE 122; RESP 18; TEMP 36.3; O2SAT 94
[2019-11-01 07:42] LABS: Abs Immature Grans 0.02 10^3/uL (0.0-0.06); Absolute Basophil Count 0.04 10^3/uL (0.0-0.2); Absolute Eosinophil Count 0.23 10^3/uL (0.0-0.7); Absolute Lymphocyte Count 1.65 10^3/uL (1.2-3.4); Absolute Monocyte Count 0.76 10^3/uL (0.1-0.8); Absolute Neutrophil Count 4.12 10^3/uL (1.2-6.7); Basophils % 0.6; Eosinophils % 3.4; HCT 36.4 % (40.0-50.0); HGB 12.1 g/dL (13.5-17.5); Immature Grans % 0.3; Lymphocytes % 24.2; MCH 29.6 pg (27.0-33.0); MCHC 33.2 % (32.0-36.0); MPV 9.9 fL (8.0-11.0); Monocytes % 11.1; Neutrophils % 60.4; Nucleated RBC 0 %; Platelet Count 218 10^3/uL (130-400); RBC 4.09 10^6/uL (4.36-5.78); RDW 13.2 % (11.8-14.1); RDW-SD 42.9 fL; WBC 6.82 10^3/uL (4.4-10.8)
[2019-11-01 07:50] LABS: Anion Gap 8.5 mmol/L (3-11); BUN 16 mg/dL (7-18); CO2 28.5 mmol/L (21.0-32.0); CREATININE 1.26 mg/dL (0.70-1.30); Chloride 101 mmol/L (98-107); Estimated GFR 57.08 (mL/min/1.73m2); Glucose 120 mg/dL (74-106); Potassium 4.2 mmol/L (3.5-5.1); Sodium 138 mmol/L (136-145)
[2019-11-01] MEDS: Nicotine 21 MG/24 HR PATCH TD (08:24)
[2019-11-01] MEDS: Calcium Carbonate 1.25 GM TAB PO (08:27)
[2019-11-01] MEDS: Magnesium Oxide 400 MG TAB 200 MG PO (08:27)
[2019-11-01] MEDS: Lisinopril 10 MG TAB PO (08:28)
[2019-11-01] MEDS: Insulin Aspart 300 UNITS/3 ML PEN SC ×5 (08:29→22:22)
--- NOTE | 2019-11-01 08:52 | PDOC.CMPRO ---
- If Service Date Differs Date of service: 11/01/19 Time of Service: 08:52 Care Management Progress Note S/O Demetrio remains acute at this time. He will transition to oral abx per provider and discharge home when medically ready. He will need close follow up r/t cellulitis, he does have a podiatry and diabetic consult ordered. A:Demetrio is a 68 year old male admitted with sepsis, cellulitis, positive blood cultures, with a history of DM. P: Demetrio will be discharged home when medically ready. He will remain on oral abx. eDmetrio will need close follow up with primary care for LE's cellulitis.CM to continue to assess for discharge needs.
[2019-11-01] MEDS: Amoxicillin 875/Clav. 125 TAB PO ×2 (10:31→20:15)
--- NOTE | 2019-11-01 10:47 | PGE_ITS ---
Date of Service Date of service: 11/01/19 Time of Service: 10:47 Assessment and Plan Assessment and plan (1) Cellulitis and abscess of leg: Status: Acute Assessment and plan: 1 out of 2 blood cultures were positive for group B strep bacteremia. Presumably the source is from the cellulitis of his left leg. improved edema with Reggie bandages. will down step to augmentin to complete a 14 day course. (2) COPD (chronic obstructive pulmonary disease) with emphysema: Status: Chronic Assessment and plan: CT scan is consistent with emphysema. PFTs are pending at this time. 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 Continue basal bolus insulin and additional NovoLog for carb coverage. Upon discharge he should be considered for GLP-1 agonist. Blood sugars are still remaining somewhat elevated. His fasting glucose is 143. Lantus 18 units. His other blood sugars throughout the day have been reasonable running in the 140s. We will continue with current NovoLog coverage. (4) Hypothyroidism: Status: Suspected Assessment and plan: Patient has a mildly elevated asymptomatic TSH, Free T4 is normal at 1.14. recheck TSH in 6 to 8 weeks upon discharge. Qualifiers: Hypothyroidism type: acquired Qualified Code(s): E03.9 - Hypothyroidism, unspecified (5) Obesity: Status: Chronic Assessment and plan: dietitian referral to work on a calorie restricted plan to help with his diabetes and weight control. outpatient sleep study to rule out obstructive sleep apnea which may be a contributing factor to his chronic leg edema. Qualifiers: Body mass index: BMI 38.0-38.9 Obesity classification: adult class 2 (BMI 35 - 39.9) Obesity type: unspecified obesity type Serious obesity comorbidity presence: with serious comorbidity Qualified Code(s): E66.01 - Morbid (severe) obesity due to excess calories; Z68.38 - Body mass index (BMI) 38.0-38.9, adult (6) Hyperlipidemia, unspecified: Status: Suspected Assessment and plan: His triglycerides are 153 and total cholesterol 148 with an LDL of 85 and HDL 33. Given his new onset diabetes mellitus he should try to target LDL under 70. low-dose atorvastatin 10 mg nightly and recheck LFTs and lipid profile in 6 weeks after discharge.. Qualifiers: Hyperlipidemia type: unspecified Qualified Code(s): E78.5 - Hyperlipidemia, unspecified (7) Leg edema: Status: Chronic Assessment and plan: We are still working up the etiology of his chronic leg edema. His echo does not show any evidence of systolic or diastolic heart failure and no evidence for pulmonary hypertension. GFR is within normal limits so this cannot be blamed on renal insufficiency. I think were probably dealing with a chronic venous insufficiency situation. Once we get his cellulitis cleared up he should be fitted for thigh-high support stockings with a 20-30 mm compression rating. For now we will treat him with Reggie wraps and elevation. Since he has no evidence for CHF or pulmonary hypertension and he has normal RV function I do not think there is a role for diuretics except in the use of treating his hypertension however for now I am to start him on an REGGIE inhibitor for his hypertension. (8) Essential hypertension: Status: Chronic Assessment and plan: continue low-dose lisinopril and monitor his blood pressure. (9) Discharge planning issues: Status: Acute Assessment and plan: plan discharge home tomorrow if tolerating oral antibiotics. discussed with Dr Goldstien who is in agreement Subjective Subjective Patient reports: no new complaints, feels better, tolerating liquids well, tolerating a regular diet, voiding w/o difficulty, bowel movement and afebrile Interval history since last seen: reports improvement in swelling and erythema. Exam Const General: cooperative, healthy appearing, comfortable and no acute distress Nutritional Appearance: average body habitus Orientation: alert, awake and oriented x3 HENMT Head: normal to inspection, normocephalic and atraumatic Mouth: oral mucosae normal Resp Effort & Inspection: normal respiratory effort Cardio Rate: regular rate Rhythm: regular rhythm GI Inspection: normal to inspection Palpation: soft Auscultation: normal bowel sounds Skin Lesions: lesion noted (see NN, abrasions with less drainage) Rashes: rashes noted (left lower, improved erythema, receding ) Neuro General: patient alert, patient awake and patient oriented x3 Cranial Nerves: CN's II-XI intact bilaterally Cognition: normal cognition Speech: speech normal Gait: normal gait Motor: muscle tone normal throughout Extrem General: normal to inspection, full ROM and edema Laterality: left Psych Appearance: grossly normal Mental Status: mental status grossly normal Speech and Movement: speech and movement normal Objective Objective Clinical Data: Abnormal lab results 10/31/19 11/01/19 11/01/19 Range/Units 17:40 07:20 07:20 RBC 4.09 L (4.36-5.78) 10^6/uL Hgb 12.1 L (13.5-17.5) g/dL Hct 36.4 L (40.0-50.0) % Glucose 120 H (74-106) mg/dL Ur Microalbumin mg/L 51.4 H (1.30-20.0) mg/L Vital Signs Temperature 36.3 C L 11/01/19 03:58 Temperature Source Tympanic 11/01/19 03:58 Pulse 122 H 11/01/19 03:58 Pulse Rhythm Regular 11/01/19 00:05 Pulse 93 H 10/30/19 12:16 Respiratory Rate 18 11/01/19 03:58 Respiratory Effort Non-Labored 11/01/19 09:31 Respiratory Depth Normal 11/01/19 09:31 Respiratory Pattern Normal 11/01/19 09:31 Blood Pressure 121/79 11/01/19 03:58 Blood Pressure Mean 93 10/30/19 12:16 Blood Pressure Position Sitting 10/30/19 09:00 Pulse Oximetry 94 L 11/01/19 03:58 Oxygen Delivery Method Room Air 11/01/19 03:58 Oxygen Flow Rate 0 11/01/19 03:58 Pain Level 0 10/31/19 15:20 Intake & Output 10/31/19 10/31/19 11/01/19 11:59 23:59 11:59 Intake Total 460 / 1565 1105 / 1565 590 / 590 Output Total 800 / 2150 1350 / 2150 Balance -340 / -585 -245 / -585 590 / 590 Weight 116.9 kg 115.5 kg Intake: IV 100 / 365 265 / 365 110 / 110 Oral 360 / 1200 840 / 1200 480 / 480 Output: Urine 800 / 2150 1350 / 2150 Other: Urine Color Yellow Yellow Yellow Urine Appearance Clear Clear Clear Urine Odor Normal Normal Voiding Methods Urinal Toilet Toilet Laboratory Results WBC 6.82 10^3/uL (4.4-10.8) D 11/01/19 07:20 RBC 4.09 10^6/uL (4.36-5.78) L 11/01/19 07:20 Hgb 12.1 g/dL (13.5-17.5) L 11/01/19 07:20 Hct 36.4 % (40.0-50.0) L 11/01/19 07:20 MCV 89.0 fL (80-95) 11/01/19 07:20 MCH 29.6 pg (27.0-33.0) 11/01/19 07:20 MCHC 33.2 % (32.0-36.0) 11/01/19 07:20 RDW 13.2 % (11.8-14.1) 11/01/19 07:20 Plt Count 218 10^3/uL (130-400) 11/01/19 07:20 MPV 9.9 fL (8.0-11.0) 11/01/19 07:20 Immature Gran % 0.3 11/01/19 07:20 Neutrophils % 60.4 11/01/19 07:20 Lymphocytes % 24.2 11/01/19 07:20 Monocytes % 11.1 11/01/19 07:20 Eosinophils % 3.4 11/01/19 07:20 Basophils % 0.6 11/01/19 07:20 Absolute Neutrophils 4.12 10^3/uL (1.2-6.7) 11/01/19 07:20 Absolute Lymphocytes 1.65 10^3/uL (1.2-3.4) 11/01/19 07:20 Absolute Monocytes 0.76 10^3/uL (0.1-0.8) 11/01/19 07:20 Absolute Eosinophils 0.23 10^3/uL (0.0-0.7) 11/01/19 07:20 Absolute Basophils 0.04 10^3/uL (0.0-0.2) 11/01/19 07:20 Sodium 138 mmol/L (136-145) 11/01/19 07:20 Potassium 4.2 mmol/L (3.5-5.1) 11/01/19 07:20 Chloride 101 mmol/L (98-107) 11/01/19 07:20 Carbon Dioxide 28.5 mmol/L (21.0-32.0) 11/01/19 07:20 Anion Gap 8.5 mmol/L (3-11) 11/01/19 07:20 BUN 16 mg/dL (7-18) 11/01/19 07:20 Creatinine 1.26 mg/dL (0.70-1.30) 11/01/19 07:20 Estimated GFR/1.73 m2 57.08 (mL/min/1.73m2) 11/01/19 07:20 Glucose 120 mg/dL (74-106) H 11/01/19 07:20 Hemoglobin A1c Cancelled 10/30/19 09:33 Lactate 0.9 mmol/L (0.6-1.4) 10/31/19 07:04 Calcium 9.0 mg/dL (8.5-10.1) 11/01/19 07:20 Total Bilirubin 1.2 mg/dL (0.2-1.0) H 10/30/19 06:30 AST 19 U/L (15-37) 10/30/19 06:30 ALT 26 U/L (16-63) 10/30/19 06:30 Alkaline Phosphatase 48 U/L (46-116) 10/30/19 06:30 Troponin I < 0.05 ng/mL (<0.06) 10/29/19 21:50 C-Reactive Protein 16.82 mg/dL (0.0-0.3) H 10/31/19 07:04 NT-Pro-B Natriuret Pep 724 pg/mL (<300) H 10/30/19 06:30 Total Protein 7.9 g/dL (6.4-8.2) 10/30/19 06:30 Albumin 3.3 g/dL (3.4-5.0) L 10/30/19 06:30 Triglycerides 153 mg/dL (<150) H 10/31/19 07:04 Total Cholesterol 148 mg/dL (<200) 10/31/19 07:04 LDL Cholesterol, Calc 85 mg/dL (<100) 10/31/19 07:04 HDL Cholesterol 33 mg/dL (40-60) L 10/31/19 07:04 Procalcitonin 1.4 ng/mL 10/31/19 07:04 TSH 5.33 uIU/mL (0.36-3.74) H 10/30/19 06:30 Free T4 1.14 ng/dL (0.76-1.46) 10/31/19 07:04 Urine Color Yellow (Yellow) 10/30/19 09:10 Urine Clarity Clear (Clear) 10/30/19 09:10 Urine pH 5.5 (5-8) 10/30/19 09:10 Ur Specific [place] 1.025 (1.005-1.025) 10/30/19 09:10 Urine Protein 100 mg/dL (Negative) H 10/30/19 09:10 Urine Ketones Negative mg/dL (Negative) 10/30/19 09:10 Urine Blood Small (Negative) H 10/30/19 09:10 Urine Nitrite Negative (Negative) 10/30/19 09:10 Urine Bilirubin Negative (Negative) 10/30/19 09:10 Urine Urobilinogen 2.0 EU/dL (Up TO 0.2) H 10/30/19 09:10 Ur Leukocyte Esterase Negative (Negative) 10/30/19 09:10 Urine RBC 3-5 HPF (0-2) H 10/30/19 09:10 Urine WBC 0-2 HPF (0-5) 10/30/19 09:10 Ur Epithelial Cells Few HPF (Negative) 10/30/19 09:10 Urine Crystals Moderate amorphous HPF (Negative) 10/30/19 09:10 Urine Bacteria Negative HPF (Negative) 10/30/19 09:10 Urine Casts Negative LPF (Negative) 10/30/19 09:10 Urine Mucus Negative (Negative) 10/30/19 09:10 Ur Culture Indicated? No 10/30/19 09:10 Ur Random Creatinine 34.73 mg/dL 10/31/19 17:40 U Random Total Protein 27.3 mg/dL 10/31/19 17:40 U [place] Prot/Creat Ratio 0.78 10/31/19 17:40 Ur Creatinine mg/dL 34.44 mg/dL 10/31/19 17:40 Ur Microalbumin mg/L 51.4 mg/L (1.30-20.0) H 10/31/19 17:40 Microalb/Creat Ratio 149.2 ug/mg Cr 10/31/19 17:40 Urine Glucose 100 mg/dL (Negative) 10/30/19 09:10 COVID-19 PCR Negative (Negative) 10/30/19 00:15 Nasopharyn COVID-19 PCR Not Applicable 10/30/19 00:15 Ref Test Perform Site [place] [facility] 10/30/19 00:15
[2019-11-01] MEDS: Enoxaparin 40 MG/0.4 ML SYR SC (14:13)
[2019-11-01 15:22] VITALS: BP 130/74; PULSE 77; RESP 18; TEMP 36.7; O2SAT 92
--- NOTE | 2019-11-01 18:21 | W.PODCONSULT ---
Date of service: 11/01/19 Time of Service: 18:22 History of Present Illness History of Present Illness Chief Complaint: mycotic toenails, stasis ulcer Narrative: 68-year-old male seen in his room who was admitted 3 days ago with cellulitis, sepsis with venous stasis ulcer to the left leg and severely overgrown toenails. He is awake, alert and very talkative. He does indicate he is feeling much better since his admission. I have reviewed his admission H&P and daily hospitalist progress notes. [facility] Medical History COPD (chronic obstructive pulmonary disease) with emphysema (Chronic) Hyperlipidemia, unspecified (Suspected) Hypothyroidism (Suspected) IFG (impaired fasting glucose) (Chronic) Obesity (Chronic) Tobacco use disorder (Chronic) Surgical History Colonoscopy - MAC (11/10/16) Orchiectomy, Radical Left, s/p trauma Repair, ACL Right-Age 17 Family History Father , [place]? at age 79. Essential hypertension Myocardial infarction Maternal Aunt Neoplasm Adnexa NOS Maternal Grandmother Neoplasm Adnexa NOS Mother , CVA & PNA at age 81. Essential hypertension Stroke Paternal Grandfather Myocardial infarction Sister No problems noted. Brother No problems noted. Social History Smoking/Tobacco Use Status: Current every day Alcohol Intake: current Alcohol Intake frequency: a few times a month Drug use: Never Substance use type: does not use Do you feel safe at home: Yes Do you feel safe in your relationship?: Yes Exam Narrative Exam Narrative: Demetrio is seen at bedside. He is resting comfortably in his chair. Legs are in dependency. I remove the Reggie wraps from his left lower extremity and remove the foam dressing on his left barone. He has had venous ultrasounds performed both lower extremities negative for DVT. He has significant venous stasis disease affecting both lower extremities. Venous stasis changes consistent with hemosiderin, thinning of the skin, blister formation with superficial ulceration noted over the left anterior barone. This wound is shallow with mild serous type drainage seen on the dressing. Cellulitis markings are noted practically to the knee with the cellulitis appearing to be receding. He has been transitioned from IV antibiotics to oral Augmentin. Peripheral pulses are poorly palpable due to edema and venous stasis changes but his feet are warm to the touch. He has good capillary return to all toes. Once again the skin is thin, atrophic with venous stasis changes diffusely noted bilaterally lower extremities. He has severe onychomycosis with yellowing of the toenails, thickening, high degree of cryptosis, elongation and subungual debris. All toenails are affected. Periungual tenderness is appreciated but no secondary signs of infection were observed. Groups of 5 out of 5 bilaterally although deconditioned. Skeletal exam appeared to be grossly benign. No joint inflammation or gross deformities were noted. Neurologically he appeared grossly intact. Impression: Venous stasis disease venous stasis ulcer left lower extremity with cellulitis Onychogryphosis with onychomycosis Plan: Demetrio will be unable to apply thigh-high compression stockings on his own. I suggested he consider a CircAid style compression appliance. These devices are very easy to put on and provide effective compression. They can be purchased online and/or ordered through medical supply facility such as [employer]. Clinically and electrically debrided all toenails aggressively yet atraumatically to patient tolerance. Deeply curettaged all debris free of the nail grooves. Significant reduction of sensitivity noted upon debridement. I do recommend that he seek podiatric care upon discharge and I be happy to see him in the office in approximately 10 weeks for ongoing management. I agree with the current wound care being provided to his left leg, no changes are required at this time although the application of his Reggie wraps need to be applied smoothly and firmly for maximum compression. Results Last Vital Signs Temp 36.7 C 11/01/19 15:22 Pulse 77 11/01/19 15:22 Resp 18 11/01/19 15:22 BP 130/74 11/01/19 15:22 Pulse Ox 92 L 11/01/19 15:22 Labs Result diagrams: 11/01/19 07:20 11/01/19 07:20 Labs: Laboratory Results - last 24 hr 10/31/19 10/31/19 11/01/19 17:40 17:40 07:20 WBC RBC Hgb Hct MCV MCH MCHC RDW Plt Count MPV Immature Gran % Neutrophils % Lymphocytes % Monocytes % Eosinophils % Basophils % Absolute Neutrophils Absolute Lymphocytes Absolute Monocytes Absolute Eosinophils Absolute Basophils Sodium 138 Potassium 4.2 Chloride 101 Carbon Dioxide 28.5 Anion Gap 8.5 BUN 16 Creatinine 1.26 Estimated GFR/1.73 m2 57.08 Glucose 120 H Calcium 9.0 Ur Random Creatinine 34.73 U Random Total Protein 27.3 U [place] Prot/Creat Ratio 0.78 Ur Creatinine mg/dL 34.44 Ur Microalbumin mg/L 51.4 H Microalb/Creat Ratio 149.2 11/01/19 07:20 WBC 6.82 D RBC 4.09 L Hgb 12.1 L Hct 36.4 L MCV 89.0 MCH 29.6 MCHC 33.2 RDW 13.2 Plt Count 218 MPV 9.9 Immature Gran % 0.3 Neutrophils % 60.4 Lymphocytes % 24.2 Monocytes % 11.1 Eosinophils % 3.4 Basophils % 0.6 Absolute Neutrophils 4.12 Absolute Lymphocytes 1.65 Absolute Monocytes 0.76 Absolute Eosinophils 0.23 Absolute Basophils 0.04 Sodium Potassium Chloride Carbon Dioxide Anion Gap BUN Creatinine Estimated GFR/1.73 m2 Glucose Calcium Ur Random Creatinine U Random Total Protein U [place] Prot/Creat Ratio Ur Creatinine mg/dL Ur Microalbumin mg/L Microalb/Creat Ratio
[2019-11-01] MEDS: Atorvastatin 10 MG TAB PO (20:15)
[2019-11-01] MEDS: Insulin Glargine 300 UNITS/3 ML PEN 18 UNITS SC (22:11)
[2019-11-01 22:57] VITALS: BP 151/99; PULSE 89; RESP 18; TEMP 36.6; O2SAT 93
[2019-11-02 07:09] LABS: Abs Immature Grans 0.04 10^3/uL (0.0-0.06); Absolute Basophil Count 0.03 10^3/uL (0.0-0.2); Absolute Eosinophil Count 0.27 10^3/uL (0.0-0.7); Absolute Lymphocyte Count 1.58 10^3/uL (1.2-3.4); Absolute Monocyte Count 0.67 10^3/uL (0.1-0.8); Absolute Neutrophil Count 3.82 10^3/uL (1.2-6.7); Basophils % 0.5; Eosinophils % 4.2; HGB 13.1 g/dL (13.5-17.5); Immature Grans % 0.6; Lymphocytes % 24.6; MCH 28.9 pg (27.0-33.0); MCV 90.5 fL (80-95); MPV 9.7 fL (8.0-11.0); Monocytes % 10.5; Neutrophils % 59.6; Nucleated RBC 0 %; Platelet Count 255 10^3/uL (130-400); RBC 4.53 10^6/uL (4.36-5.78); RDW 12.9 % (11.8-14.1); RDW-SD 42.5 fL; WBC 6.41 10^3/uL (4.4-10.8)
[2019-11-02 08:08] VITALS: BP 136/81; PULSE 87; RESP 19; TEMP 36.7; O2SAT 94
[2019-11-02] MEDS: Calcium Carbonate 1.25 GM TAB PO (08:56)
[2019-11-02] MEDS: Amoxicillin 875/Clav. 125 TAB PO (08:56)
[2019-11-02] MEDS: Magnesium Oxide 400 MG TAB 200 MG PO (08:57)
[2019-11-02] MEDS: Nicotine 21 MG/24 HR PATCH TD (08:57)
[2019-11-02] MEDS: Lisinopril 10 MG TAB PO (09:48)
[2019-11-02] MEDS: Insulin Aspart 300 UNITS/3 ML PEN SC ×2 (09:49→12:03)
[2019-11-02 11:19] VITALS: BP 137/83; PULSE 76
--- NOTE | 2019-11-02 12:11 | W.PM.DS.N ---
Date of service: 11/02/19 Time of Service: 12:11 DS: Diagnosis Discharge Diagnosis (1) Cellulitis and abscess of leg: Status: Acute (2) COPD (chronic obstructive pulmonary disease) with emphysema: Status: Chronic (3) Uncontrolled type 2 diabetes mellitus with complication: Status: Chronic (4) Hypothyroidism: Status: Suspected (5) Obesity: Status: Chronic (6) Hyperlipidemia, unspecified: Status: Suspected (7) Leg edema: Status: Chronic (8) Essential hypertension: Status: Chronic Discharge Plan Disposition Patient Disposition: HOME W/HOME HEALTH SERVICE Condition: Critical Discharge Details Chief Complaint: Fever Clinical Impression: Cellulitis of left lower extremity, Sepsis Reason For Visit: SEPSIS SYNDROME,CELLULITIS LEG,NIDDM Admit Date/Time: 10/29/19 23:26 Admit Provider: Davin Green Attending Provider: Davin Green Primary Care Provider: Martha Valera ED Provider: Nav Montes [facility] Course Hospital Course: This is a 68-year-old male patient who presented to the emergency department with a fever and ulcer on his left lower extremity which she had had for approximately 3 months but worsening. Work-up in the emergency department was concerning for sepsis. He was placed on Zosyn and vancomycin and admitted to the medical surgical unit. His blood cultures did grow group b strep. His vancomycin was discontinued. Repeat blood cultures showed no growth. He was down stepped to oral Augmentin and will complete 2-week course. His hemoglobin A1c was found to be 9.5. He was started on insulin while hospitalized and will be discharged home on glipizide and metformin. He will be monitoring his blood sugars before meals and at bedtime to bring to his follow-up appointment. He will be referred to diabetic education. He was also started on lisinopril with blood pressure in the 130s over 80s on discharge. On admission his creatinine was 1.7 this has improved to 1.2 at time of discharge. His echo does not show any evidence of systolic or diastolic heart failure and no evidence for pulmonary hypertension. He was seen by wound care and podiatry and wound care recommendations will be made at discharge. He will be followed by podiatry on outpatient basis. Patient has diminished pedal pulses but should have a formal TIERNEY study. He has been referred to home health services nursing for routine nursing care wound management medication oversight and diabetes education. He has been afebrile hemodynamically stable and is ready for discharge to home. He will follow-up with his primary care provider for further medication adjustments and recommendations. Patient has a mildly elevated asymptomatic TSH, Free T4 is normal at 1.14. recheck TSH in 6 to 8 weeks upon discharge. His triglycerides are 153 and total cholesterol 148 with an LDL of 85 and HDL 33. Given his new onset diabetes mellitus he should try to target LDL under 70. low-dose atorvastatin 10 mg nightly and recheck LFTs and lipid profile in 6 weeks after discharge.. Home Meds and New Rx's Prescriptions: New atorvastatin [Lipitor] 10 mg Tablet 10 mg PO QPM Qty: 30 RF: 0 lisinopril 10 mg Tablet 10 mg PO DAILY Qty: 30 RF: 0 amoxicillin-pot clavulanate 875-125 mg Tablet 1 tab PO BID Qty: 14 RF: 0 metformin 500 mg tablet 500 mg PO BID Qty: 60 RF: 0 glipizide 5 mg tablet extended release 24hr 5 mg PO DAILY Qty: 30 RF: 0 (DME) blood-glucose meter [OneTouch UltraMini] Kit See Rx Instructions .ROUTE .MEDSUPPLY Qty: 1 RF: 0 (DME) OneTouch Ultra Blue Test Strip Strip See Rx Instructions .ROUTE .MEDSUPPLY Qty: 10 RF: 0 Continued calcium carbonate [Calcium 500] 500 mg calcium (1,250 mg) tablet 500 mg PO DAILY PRNRF: 0 magnesium oxide 250 MG tablet 250 mg PO DAILY PRNRF: 0 cinnamon bark 500 MG capsule 500 mg PO DAILY PRNRF: 0 aspirin 81 MG tablet,delayed release (DR/EC) 81 mg PO PRN RF: 0 Discharge Instructions Instructions: Cellulitis (DC), Diabetes and Your Skin (DC), Type 2 Diabetes Management for Adults (DC) Additional Instructions: Please check your blood sugars before meals and at bedtime. Take all your medications as prescribed even if you are feeling better. Circaid dressings to bilateral lower extremities as directed. Stand Alone Forms: Nursing Discharge Form Referrals: Martha Valera NP [Primary Care Provider] - 11/10/19 3:00 pm (one week) Yury Deng DPM [DPM [facility] STAFF PHYSICIAN] - (2 month) Activity:: Activity as Tolerated Equipment/Supplies:: Blood Glucose Monitor Diet:: Carb Counting Discharge Orders Discharge Orders: Discharge Order (Routine); Ordered 11/02/19 Ordered By: Quin Shah DS: Summary Status at Discharge Functional status at discharge: independent ambulation Overall status at discharge: patient is progressing back to baseline Mental Status: mental status grossly normal Speech and Movement: speech and movement normal Mood: congruent mood Affect: normal affect Exam Const General: cooperative, healthy appearing, comfortable and no acute distress Nutritional Appearance: average body habitus Orientation: alert, awake and oriented x3 HENMT Head: normal to inspection, normocephalic and atraumatic Mouth: oral mucosae normal Resp Effort & Inspection: normal respiratory effort Cardio Rate: regular rate Rhythm: regular rhythm GI Inspection: normal to inspection Palpation: soft Auscultation: normal bowel sounds Skin Lesions: lesion noted (see NN, abrasions with less drainage) Rashes: rashes noted (left lower, improved erythema, receding ) Neuro General: patient alert, patient awake and patient oriented x3 Cranial Nerves: CN's II-XI intact bilaterally Cognition: normal cognition Speech: speech normal Gait: normal gait Motor: muscle tone normal throughout Extrem General: normal to inspection, full ROM and edema Laterality: left Psych Appearance: grossly normal Mental Status: mental status grossly normal Speech and Movement: speech and movement normal Mood: congruent mood Affect: normal affect DS: Data Vitals/I&O Vitals and I&O: Vital Signs Temperature 36.7 C 11/02/19 08:08 Temperature Source Tympanic 11/02/19 08:08 Pulse 87 11/02/19 08:08 Pulse Rhythm Regular 11/02/19 10:17 Pulse 76 11/02/19 11:19 Respiratory Rate 19 11/02/19 08:08 Respiratory Effort Non-Labored 11/02/19 10:17 Respiratory Depth Normal 11/02/19 10:17 Respiratory Pattern Normal 11/02/19 10:17 Blood Pressure 137/83 11/02/19 11:19 Blood Pressure Mean 93 10/30/19 12:16 Blood Pressure Position Sitting 10/30/19 09:00 Pulse Oximetry 94 L 11/02/19 08:08 Oxygen Delivery Method Room Air 11/02/19 08:08 Oxygen Flow Rate 0 11/02/19 08:08 Pain Level 0 11/02/19 08:08 Intake & Output 11/01/19 11/02/19 11/02/19 23:59 11:59 23:59 Intake Total 480 / 1120 240 / 240 Balance 480 / 1120 240 / 240 Weight 114.3 kg Intake: Oral 480 / 960 240 / 240 Other: Urine Appearance Clear Clear Voiding Methods Toilet Data Completed and Pending Labs on day of discharge: Labs from last 24 hours 11/02/19 06:19 WBC 6.41 RBC 4.53 Hgb 13.1 L Hct 41.0 MCV 90.5 MCH 28.9 MCHC 32.0 RDW 12.9 Plt Count 255 MPV 9.7 Immature Gran % 0.6 Neutrophils % 59.6 Lymphocytes % 24.6 Monocytes % 10.5 Eosinophils % 4.2 Basophils % 0.5 Nucleated RBC % 0 Absolute Neutrophils 3.82 Absolute Lymphocytes 1.58 Absolute Monocytes 0.67 Absolute Eosinophils 0.27 Absolute Basophils 0.03 Preliminary micro results at discharge 11/01/19 07:22 Blood Culture - Preliminary Blood NO GROWTH 24 HOURS 11/01/19 07:22 Blood Culture - Preliminary Blood NO GROWTH 24 HOURS 10/29/19 23:00 Blood Culture - Preliminary Blood NO GROWTH 72 HOURS [facility] Medical History COPD (chronic obstructive pulmonary disease) with emphysema (Chronic) Hyperlipidemia, unspecified (Suspected) Hypothyroidism (Suspected) IFG (impaired fasting glucose) (Chronic) Obesity (Chronic) Tobacco use disorder (Chronic) Surgical History Colonoscopy - MAC (11/10/16) Orchiectomy, Radical Left, s/p trauma Repair, ACL Right-Age 17 Family History Father , [place]? at age 79. Essential hypertension Myocardial infarction Maternal Aunt Neoplasm Adnexa NOS Maternal Grandmother Neoplasm Adnexa NOS Mother , CVA & PNA at age 81. Essential hypertension Stroke Paternal Grandfather Myocardial infarction Sister No problems noted. Brother No problems noted. Social History Smoking/Tobacco Use Status: Current every day Alcohol Intake: current Alcohol Intake frequency: a few times a month Drug use: Never Substance use type: does not use Do you feel safe at home: Yes Do you feel safe in your relationship?: Yes
--- NOTE | 2019-11-02 12:46 | CMDISCH_ITS ---
- If Service Date Differs Date of service: 11/02/19 Time of Service: 12:46 LACE Index Scoring Tool - Questions: Length of Stay (in days): 4 - 6 Acuity (Admit via E.D.?): Yes Comorbidities: PVD, Diabetes w/o Complication E.D. Visits: 1 - Answers: Total Score: 10 Risk of Readmission: High Risk Care Management Discharge Reason for Hospitalization: Sepsis syndrome and cellulitis Discharge Plan: Demetrio will be discharged home today, with new home health services for DM education, wound care, and education. Mejia is agreeable to a new referral councel on aging for assistance with Medicare programs and prescription drug plan. He is not planning on returning to work for awhile and will focus on his health and recovering from illness. His legs were wrapped today with a compression type stocking, CM will fax prescription to [facility] in [place] for the Circaid compression stockings. CM contacted cytotechnologist/cytology supervisor and requested glucometer teaching and blood sugar testing he will also follow up as outpatient. He will need prescriptions for one touch glucometer and test strips. Mejia will be transported home via private car with his spouse at time of discharge. Patient/Family Education Needs: Discharge education, limitations and follow up plan of care jonnathan ask me three and self management. Services Needed at Discharge: DME Agency, Home Health Care Services
--- NOTE | 2019-11-02 13:28 | PDOC.HHF2F_ITS ---
Home Health Certification Home Health Certification: 1. Encounter Date and Reason I certify that MAYITO VERNON was seen by Quin Shah on 11/02/19 and that I had a [id number] encounter with this patient that meets the physician face to face encounter requirements. 2. Clinical Findings Supporting Skilled Need and Homebound Status I certify that home health services are medically necessary, include either intermittent half-way and/or physical/speech therapy, and that this patient is homebound in that absences from the home require considerable and taxing effort and are infrequent or of short duration, or are attributable to the need to receive medical care. [X] (a) Attached documentation from encounter provides clinical findings supporting skilled need and homebound status (including what assistance patient requires to leave the home). The encounter with the patient was in whole, or in part, for the following medical condition, which is the primary reason for home health care: SEPSIS SYNDROME,CELLULITIS LEG,NIDDM Senior Care: routine nursing care including medication oversight, wound care, diabetic education. 3. Certification and Authentication I certify that I composed the above information based on my clinical judgement relating to this patient's medical condition and, if applicable, clinical findings communicated to me by the NPP or inpatient physician who performed the Home Health Referral. All further orders will be obtained through (Community Based Physician - PCP)
[2019-11-02] MEDS: Enoxaparin 40 MG/0.4 ML SYR SC (13:37)
--- NOTE | 2019-11-02 15:11 | W.DIABETESNO ---
Date of service: 11/02/19 Time of Service: 14:45 Diabetes Note NOTE: Visited Mejia per Care team request for glucometer education. He has been prescribed a one touch model with strips and will be using that when he returns home. This RD reviewed desired BG ranges for DM with patient, demonstrated proper procedure for using glucomter ( Medline harmoney model) and recommended online tuorial for the model he will use at home. Mejia was able to successfully take a BG reading using the glucometer provided. His 2 hr postprandial reading was 137ml/dl (WNL). He has contact info for [facility] nutrition for futher intensive outpatient DM education if he chooses. - Time Spent in Nutritional Counseling and Treatment: 15 minutes
--- NOTE | 2019-11-07 13:00 | W.PFT ---
Date of service: 10/31/19 Time of Service: 02:27 Pulmonary Function Test Result Interpretation Spirometry: Show very severe obstructive airways disease, with significant bronchodilator response Lung Volumes: Not done Diffusion Capacity: Poor patient effort, after did not meet acceptability criteria, therefore should not be taken into clinical consideration. This shows moderate diffusion defect which is mild when corrected to alveolar volume Airway Pressure: Not done Impression Extremely severe obstructive airways disease with significant bronchodilator response. Diffusion capacity maneuver did not meet acceptability criteria, therefore those results should not be taken into clinical consideration. Lung volumes were not measured. Clinical Correlation therefore is recommended.
== END 2019-11-02 17:28 | disposition home health service (06) | DRG 872 ==
LOC: ER 23:32 → ICU 10-30 01:59 → MS 10-30 15:17
PROVIDERS: Family Medicine; Internal Medicine; Admitting Provider Family Medicine; Emergency Provider Student in an Organized Health Care Education/Training Program; PCP Nurse Practitioner Family; Visit Provider Family Medicine
DX: A41.9 Sepsis, unspecified organism (principal); L03.116 Cellulitis of left lower limb; L02.416 Cutaneous abscess of left lower limb; E11.628 Type 2 diabetes mellitus with other skin complications; B95.1 Streptococcus, group B, as the cause of diseases classified elsewhere; F17.210 Nicotine dependence, cigarettes, uncomplicated; R06.02 Shortness of breath; E78.5 Hyperlipidemia, unspecified; E03.9 Hypothyroidism, unspecified; E11.65 Type 2 diabetes mellitus with hyperglycemia; J43.9 Emphysema, unspecified; E66.01 Morbid (severe) obesity due to excess calories; Z68.37 Body mass index [BMI] 37.0-37.9, adult; I10 Essential (primary) hypertension; I87.2 Venous insufficiency (chronic) (peripheral)
CPT/HCPCS: 36415; 71275; 80048; 80053; 80061; 84145; 87040; 93005; 93306; 94060; 94729; 96361; 96365; 96366; 96367; 99223; 99233; 99239; 99291; J1650; U0003; 73590; 81003; 81015; 82043; 82565; 82570; 83036; 83605; 83880; 84156; 84439; 84443; 84484; 85025; 86140; 93010; 93970; J1644; J2543; J2700; J3370

== ENCOUNTER 2020-03-08 00:10 | Outpatient (CLI) | payer MEDICARE, SELFPAY ==
--- NOTE | 2020-03-08 06:30 | DI.US_ITS ---
EXAM: US AAA SCREENING CLINICAL HISTORY: Screening for AAA,Z13.6,TOBACCO USE DISORDER,HYPERTENSION,PREVENTATIVE CARE COMPARISON: CT CT CHEST PE CTA from 10/30/2019 FINDINGS: Abdominal Aorta: Proximal: 2.6 x 2.7 cm Mid: 2.1 x 1.9 cm Distal: 2 x 2.2 cm Iliac's: Right: 1.3 x 1.5 cm Left: 1.2 x 1.5 cm IMPRESSION: No evidence of abdominal aortic aneurysm. DATA REPOSITORY:
== END 2020-03-08 00:30 ==
PROVIDERS: PCP Nurse Practitioner Family; Visit Provider Nurse Practitioner Family
DX: Z13.6 Encounter for screening for cardiovascular disorders (principal); F17.210 Nicotine dependence, cigarettes, uncomplicated; I10 Essential (primary) hypertension
CPT/HCPCS: 76706

== ENCOUNTER 2020-05-02 03:20 | Outpatient (CLI) | payer MEDICARE, SELFPAY ==
[2020-05-02 08:46] LABS: Abs Immature Grans 0.02 10^3/uL (0.0-0.06); Absolute Basophil Count 0.04 10^3/uL (0.0-0.2); Absolute Eosinophil Count 0.34 10^3/uL (0.0-0.7); Absolute Monocyte Count 0.56 10^3/uL (0.1-0.8); Absolute Neutrophil Count 4.03 10^3/uL (1.2-6.7); Basophils % 0.6; Eosinophils % 5.2; HCT 43.1 % (40.0-50.0); Immature Grans % 0.3; Lymphocytes % 23.1; MCH 29.4 pg (27.0-33.0); MCHC 32.5 % (32.0-36.0); MCV 90.4 fL (80-95); MPV 8.7 fL (8.0-11.0); Monocytes % 8.6; Neutrophils % 62.2; Nucleated RBC 0 %; Platelet Count 278 10^3/uL (130-400); RBC 4.77 10^6/uL (4.36-5.78); RDW 13.2 % (11.8-14.1); RDW-SD 43.8 fL; WBC 6.49 10^3/uL (4.4-10.8)
[2020-05-02 10:38] LABS: ALT 28 U/L (16-63); AST 16 U/L (15-37); Albumin 3.8 g/dL (3.4-5.0); Alkaline Phosphatase 53 U/L (46-116); Anion Gap 6.3 mmol/L (3-11); BUN 19 mg/dL (7-18); Bilirubin, Total 0.4 mg/dL (0.2-1.0); CO2 29.7 mmol/L (21.0-32.0); CREATININE 1.3 mg/dL (0.70-1.30); Calcium 9.4 mg/dL (8.5-10.1); Calculated LDL 65 mg/dL (<100); Chloride 102 mmol/L (98-107); Cholesterol 134 mg/dL (<200); Glucose 109 mg/dL (74-106); HDL Cholesterol 51 mg/dL (40-60); Potassium 4.3 mmol/L (3.5-5.1); Sodium 138 mmol/L (136-145); TSH (W/Ref FT4) 5.63 uIU/mL (0.36-3.74); Total Protein 8.6 g/dL (6.4-8.2); Triglyceride 92 mg/dL (<150)
[2020-05-02 12:07] LABS: FREE T4 1.15 ng/dL (0.76-1.46)
[2020-05-03 09:57] LABS: Hepatitis C Ab w Rflx HCV PCR Negative (Negative)
== END 2020-05-02 03:21 | disposition home or self-care (01) ==
LOC: LBO 03:20
PROVIDERS: PCP Nurse Practitioner Family; Visit Provider Nurse Practitioner Family
DX: E03.9 Hypothyroidism, unspecified (principal); E78.5 Hyperlipidemia, unspecified; Z11.59 Encounter for screening for other viral diseases; Z13.1 Encounter for screening for diabetes mellitus
CPT/HCPCS: 36415; 80053; 80061; 86803; 84439; 84443; 85025

== ENCOUNTER 2020-05-24 03:47 | Outpatient (CLI) | payer MEDICARE, SELFPAY ==
[2020-05-24 10:03] LABS: ALT 36 U/L (16-63); AST 18 U/L (15-37); Albumin 3.8 g/dL (3.4-5.0); Alkaline Phosphatase 46 U/L (46-116); Anion Gap 9.4 mmol/L (3-11); BUN 24 mg/dL (7-18); Bilirubin, Total 0.5 mg/dL (0.2-1.0); CO2 28.6 mmol/L (21.0-32.0); CREATININE 1.4 mg/dL (0.70-1.30); Calcium 9.2 mg/dL (8.5-10.1); Chloride 103 mmol/L (98-107); Glucose 102 mg/dL (74-106); Potassium 4.4 mmol/L (3.5-5.1); Sodium 141 mmol/L (136-145); Total Protein 8.4 g/dL (6.4-8.2)
== END 2020-05-24 03:48 | disposition home or self-care (01) ==
LOC: LBO 03:47
PROVIDERS: PCP Nurse Practitioner Family; Visit Provider Nurse Practitioner Family
DX: I10 Essential (primary) hypertension (principal); N18.30 Chronic kidney disease, stage 3 unspecified; R60.0 Localized edema
CPT/HCPCS: 36415; 80053

== ENCOUNTER 2020-05-29 02:47 | Outpatient (CLI) | payer MEDICARE, SELFPAY ==
[2020-05-30 13:24] LABS: Albumin 49.8 % (55.8-66.1); Total Protein 8.1 g/dL (6.3-8.2)
== END 2020-05-29 02:48 | disposition home or self-care (01) ==
LOC: LBO 02:47
PROVIDERS: PCP Nurse Practitioner Family; Visit Provider Nurse Practitioner Family
DX: E88.09 Other disorders of plasma-protein metabolism, not elsewhere classified (principal)
CPT/HCPCS: 36415; 84165

== ENCOUNTER 2020-06-05 03:52 | Outpatient (CLI) | payer MEDICARE, SELFPAY ==
[2020-06-05 13:55] LABS: Anion Gap 9.8 mmol/L (3-11); BUN 23 mg/dL (7-18); CO2 28.2 mmol/L (21.0-32.0); CREATININE 1.3 mg/dL (0.70-1.30); Chloride 104 mmol/L (98-107); Glucose 121 mg/dL (74-106); Potassium 4.2 mmol/L (3.5-5.1); Sodium 142 mmol/L (136-145)
== END 2020-06-05 03:53 | disposition home or self-care (01) ==
LOC: LBO 03:52
PROVIDERS: PCP Nurse Practitioner Family; Visit Provider Nurse Practitioner Family
DX: N18.30 Chronic kidney disease, stage 3 unspecified (principal)
CPT/HCPCS: 36415; 80048

== ENCOUNTER 2020-06-20 03:23 | Outpatient (CLI) | payer MEDICARE, SELFPAY ==
[2020-06-20 09:36] LABS: BUN 23 mg/dL (7-18); CREATININE 1.3 mg/dL (0.70-1.30); Chloride 102 mmol/L (98-107); Glucose 129 mg/dL (74-106); Potassium 4.4 mmol/L (3.5-5.1); Sodium 140 mmol/L (136-145)
[2020-06-20 09:40] LABS: Calcium 9.3 mg/dL (8.5-10.1)
== END 2020-06-20 03:24 | disposition home or self-care (01) ==
LOC: LBO 03:23
PROVIDERS: PCP Nurse Practitioner Family; Visit Provider Nurse Practitioner Family
DX: N18.30 Chronic kidney disease, stage 3 unspecified (principal)
CPT/HCPCS: 36415; 80048

== ENCOUNTER 2020-06-30 16:20 | Inpatient (IN) | payer MEDICARE, SELFPAY ==
[2020-06-30] VITALS (27 sets, daily range): BP systolic 81–146; BP diastolic 40–63; PULSE 103–131; RESP 4–35; TEMP 38.5–38.8; O2SAT 94–100
--- NOTE | 2020-06-30 16:44 | W.ED.GENAD ---
Discharge Plan Disposition Patient Disposition: [facility] INPATIENT Condition: Stable Discharge Details Clinical Impression: Bilateral lower leg cellulitis, Fever, Sepsis Admit Date/Time: 07/01/20 09:42 Admit Provider: Scarlet Garces Attending Provider: Scarlet Garces Primary Care Provider: Martha Valera ED Provider: Juana Lopez Discharge Data Discharge Date/Time-TO BE ENTERED AT DEPARTURE: 06/30/20 19:45 Medical Decision Making 69-year-old male with a history of morbid obesity, CKD, COPD, hypertension, hyperlipidemia, diabetes and chronic lymphedema bilateral lower extremities presents with worsening left leg swelling and redness and fever today. Temp 101.8 on arrival. Heart rate 120s. Patient is oriented x3 but slightly slowed in his responses. No focal deficits. He has bilateral lower extremity edema and erythema, worse on the left side. There is scaling and thickened epidermis with multiple open wounds with yellow draining fluid. He is neurovascular intact. He also has scattered wheezing throughout he states this is baseline due to COPD. Suspect most likely fever related to his leg cellulitis. Also consider pneumonia, coronavirus, etc. Will place an IV, screening labs, blood cultures, Covid swab, urinalysis, CT chest and give IV Tylenol, fluids and reassess. Will start vancomycin IV and plan for admission for IV antibiotics for fever with suspected leg cellulitis as the source in a morbidly obese diabetic patient with potential for sepsis considering his previous h/o leg cellulitis and bacteremia. Labs reviewed. White blood cell count 26. CRP 14. Lactate 2.0. CT chest negative for acute findings. Covid swab negative. Case discussed with hospitalist who accepts patient for admission. Medical Records Medical records reviewed: Yes I reviewed the patient's medical records. Imaging Data Radiologic Study: Radiologist's impression: CTA Chest With Contrast Exam date and time: 06/30/2020 6:28 PM Age: 69 years old Clinical indication: Shortness of breath and wheezing TECHNIQUE: Imaging protocol: Computed tomographic angiography of the chest with contrast. 3D rendering (Not supervised by radiologist): MIP and/or 3D reconstructed images were created by the technologist. COMPARISON: CT CHEST PE CTA 10/30/2019 1:10 AM FINDINGS: Pulmonary arteries: There are regions of decreased density within some of the basilar segmental and subsegmental pulmonary arterial branches which appears to be related to artifact. No filling defects within the pulmonary arteries are identified to suggest pulmonary embolism. The pulmonary arteries are not dilated. Aorta: Unremarkable. No aortic aneurysm. No aortic dissection. Lungs: Again noted is mild centrilobular emphysema within the upper lobes. There are stable regions of mild atelectasis/scarring within the lung bases. Again noted is mild central peribronchial thickening. There is no bronchiectasis or bronchiolectasis. Pleural spaces: Unremarkable. No pneumothorax. No pleural effusion. Heart: There is no bowing of the interventricular septum or disproportionate enlargement of the right heart. There is no reflux of contrast into the IVC or hepatic veins. Heart size is near the upper limits of normal. There is no pericardial effusion. Lymph nodes: There is a stable 1 cm nodular structure within the anterior mediastinum on image 248, series 5, likely a lymph node. Bones/joints: Unremarkable. No acute fracture. Soft tissues: Unremarkable. IMPRESSION: 1. No pulmonary embolism identified. 2. Mild emphysema, as on prior study. 3. Mild atelectasis/scarring at the lung bases, as on prior study. 4. Stable mildly enlarged anterior mediastinal lymph node, likely benign. Lab Data Lab results reviewed: Yes I reviewed the patient's lab results. HPI General Mode of arrival: wheelchair. Date/Time Provider Initiated Documentation: 06/30/20 16:31. Limitations to Documentation: no limitations. Information obtained by: patient and family. HPI Narrative: Patient is a 59-year-old male with a history of morbid obesity, COPD, chronic kidney disease, diabetes, chronic lymphedema and stasis dermatitis of both lower extremities who presents to the ED with worsening cellulitis of his left leg and fever today. T-max 102.7 p.o. No Tylenol given today. states that patient appears confused at times today and that his responses were delayed. Denies any strokelike symptoms. She states patient finished Keflex for leg cellulitis over a month ago and followed up with his primary care doctor yesterday for his chronic leg dermatitis and wounds. She states his legs are wrapped once weekly and she wrapped some at home as well. Patient has chronic dry cough and shortness of breath but states that he seems more short of breath lately. Denies any recent travel or known exposure to coronavirus. Denies any vomiting or diarrhea. Related Data Home Medications Medication Instructions Recorded Confirmed aspirin 81 mg PO PRN tab 09/22/16 06/30/20 cinnamon bark 500 mg PO DAILY PRN 09/22/16 06/30/20 magnesium oxide 250 mg PO DAILY PRN 09/22/16 06/30/20 calcium carbonate 500 mg calcium 500 mg PO DAILY PRN 09/15/19 06/30/20 (1,250 mg) tablet blood-glucose meter [OneTouch #1 each 11/02/19 06/29/20 UltraMini] atorvastatin 10 mg tablet 10 mg PO DAILY #90 tab-cap 12/07/19 06/29/20 blood sugar diagnostic #100 ea 12/07/19 06/29/20 glipizide 5 mg tablet, extended 5 mg PO DAILY #90 tab-cap 12/07/19 06/30/20 release 24 hr lancets #100 ea 12/07/19 06/29/20 metformin 500 mg tablet 500 mg PO BID #180 tab-cap 12/07/19 06/30/20 comp.stocking,knee,long,medium #2 unit 06/01/20 06/29/20 furosemide 20 mg tablet 30 mg PO DAILY AM #135 tab-cap 06/08/20 06/30/20 Previous Rx's Medication Instructions Recorded blood-glucose meter [OneTouch #1 each 11/02/19 UltraMini] atorvastatin 10 mg tablet 10 mg PO DAILY #90 tab-cap 12/07/19 blood sugar diagnostic #100 ea 12/07/19 glipizide 5 mg tablet, extended 5 mg PO DAILY #90 tab-cap 12/07/19 release 24 hr lancets #100 ea 12/07/19 metformin 500 mg tablet 500 mg PO BID #180 tab-cap 12/07/19 comp.stocking,knee,long,medium #2 unit 06/01/20 furosemide 20 mg tablet 30 mg PO DAILY AM #135 tab-cap 06/08/20 Allergies Allergy/AdvReac Type Severity Reaction Status Date / Time shellfish derived Allergy Intermediate Hives Unverified 06/30/20 19:17 hay fever Allergy Mild runny nose Uncoded 06/30/20 19:17 and cough General MONY: 3 Review of Systems All systems reviewed & are unremarkable except as noted in HPI and below Constitutional Constitutional: Reports as per HPI, Denies chills, Reports fever(s) and Reports weakness Eyes Eyes: Denies blurry vision ENT Ears, Nose, Mouth, and Throat: Denies dizziness, Denies sore throat and Denies throat swelling Cardiovascular Cardiovascular: Denies chest pain and Reports dyspnea Respiratory Respiratory: Reports cough and Reports dyspnea Gastrointestinal Gastrointestinal: Denies abdominal pain, Denies diarrhea and Denies vomiting Genitourinary Genitourinary: Denies hematuria and Denies dysuria Musculoskeletal Musculoskeletal: Denies back pain and Denies numbness Integumentary/Breasts Skin/Breast: Denies lesions and Denies rash Neurologic Neurologic: Reports confusion, Denies dizziness, Denies localized weakness, Denies numbness and Reports weakness Psychiatric Psychiatric: Reports confusion Allergic/Immunologic Allergic/Immunologic: Denies throat swelling [facility] Medical History CKD (chronic kidney disease) COPD (chronic obstructive pulmonary disease) with emphysema Essential hypertension Hyperlipidemia, unspecified Hypothyroidism Obesity Sepsis syndrome Stasis dermatitis of both legs Tobacco use disorder Type 2 diabetes mellitus Venous insufficiency Surgical History Colonoscopy - MAC (11/10/16) Orchiectomy, Radical Left, s/p trauma Repair, ACL Right-Age 17 Family History Father , [place]? at age 79. Essential hypertension Myocardial infarction Maternal Aunt Neoplasm Adnexa NOS Maternal Grandmother Neoplasm Adnexa NOS Mother , CVA & PNA at age 81. Essential hypertension Stroke Paternal Grandfather Myocardial infarction Sister No problems noted. Brother No problems noted. Social History Smoking/Tobacco Use Status: Current every day Tobacco Type: cigarettes Smoking packs per day: 0.5 Smoking cigarettes per day: 10.0 Years smoked: 30 Smoking pack-years: 15.00 Smoking risk assessment performed?: Yes Alcohol Intake: current Alcohol Intake frequency: a few times a month Drug use: Never Substance use type: does not use Caregiver/Support person: No Household members: spouse and children Number of Children: 2 number of grandchildren: 4 Communication Needs: None What type of physical activity do you participate in: resistance training Frequency: 1-2 times per week Seatbelt use: always 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 Do you feel safe at home: Yes Do you feel safe in your relationship?: Yes Exam Const General: cooperative, no acute distress and ill appearing chronically Nutritional Appearance: obese morbidly obese Orientation: alert, awake and oriented x3 HENMT Head: normal to inspection Face and sinus: normal facial exam Eyes General: appearance normal, both eyes and all related structures EOM: EOM intact bilaterally Neck Neck: normal visual inspection and No submandibular swelling Lymphatic: no lymphadenopathy noted Chest Chest: normal inspection of the chest and no tenderness Resp Effort & Inspection: normal respiratory effort and able to speak in complete sentences Auscultation: clear to auscultation bilaterally Cardio Rate: regular rate Rhythm: regular rhythm GI Inspection: normal to inspection and obesity Palpation: soft, not firm, not rigid and nontender Auscultation: normal bowel sounds Skin General skin exam: no rashes or lesions noted Neuro General: patient alert, patient awake and patient oriented x3 Cognition: normal cognition Speech: speech normal Motor: muscle tone normal throughout Sensory Exam: no sensory deficits noted Extrem Other: Chronic stasis dermatitis of bilateral lower extremities. Both lower extremities appear erythematous and edematous, worse on left side. Several open wounds draining yellow fluid. There is no obvious areas of fluctuance. There are multiple areas of scaling of skin and thickened epidermis. Bilateral DP/PT pulses intact. Psych Appearance: grossly normal Mental Status: mental status grossly normal Speech and Movement: speech and movement normal Affect: normal affect
--- NOTE | 2020-06-30 17:15 | DI.CT_ITS ---
EXAM: CT CHEST PE CTA CLINICAL HISTORY: cough, wheezing, sob, r/o PE, pneumonia. TECHNIQUE: Imaging Protocol: Axial CT angiography was performed with multi-slice acquisition and mu lti-planar and/or 3D reconstructions. CONTRAST MATERIAL: Intravenous: Omnipaque 350 Contrast volume:structured data in ml COMPARISON: CT CT CHEST PE CTA from 10/30/2019 FINDINGS: CT angiography of the chest was performed with intravenous infusion of 100 cc of Omnipaque 350. The examination is significantly motion artifact limited period The lungs are not well evaluated due to motion, no gross pulmonary consolidation seen. There is cent ral lobular emphysema noted.. No pleural effusion. Tracheobronchial tree appears intact. No evidence of pulmonary embolic disease. Thoracic aorta is of normal diameter, no thoracic aortic an eurysm or dissection, major branch vessels appear intact. No mediastinal or hilar adenopathy. Images obtained through the upper abdomen show unremarkable appearance of the visualized portions of the liver, spleen, pancreas, adrenals, and kidneys. IMPRESSION: Negative CT angiogram of the chest. No evidence of pulmonary embolic disease. RADIATION DOSE DELIVERED: 547.38mGy.cm Total DLP 547.38mGy.cm Total DLP DATA REPOSITORY: All CT scans at this facility are submitted to the National Radiology Data Registry (NRDR) Dose Index Registry (DIR) with the [employer] ([employer]). RADIATION OPTIMIZATION: All CT scans at this facility use at least one of these dose optimization te chniques: automated exposure control; mA and/or kV adjustment per patient size (includes targeted exa ms where dose is matched to clinical indication); or iterative reconstruction.
[2020-06-30] MEDS: ACETAMINOPHEN 1,000 MG/100 ML BTL 400 MG IVPB (17:35)
[2020-06-30] MEDS: Normal Saline 500 ML IV (17:36)
[2020-06-30 17:42] LABS: Abs Immature Grans 0.82 10^3/uL (0.0-0.06); Absolute Monocyte Count 0.98 10^3/uL (0.1-0.8); Basophils % 0.2; HCT 39.5 % (40.0-50.0); HGB 12.6 g/dL (13.5-17.5); Immature Grans % 3.1; Lymphocytes % 3.1; MCH 28.6 pg (27.0-33.0); MCHC 31.9 % (32.0-36.0); MCV 89.8 fL (80-95); MPV 8.6 fL (8.0-11.0); Monocytes % 3.7; Nucleated RBC 0 %; Platelet Count 388 10^3/uL (130-400); RDW 13.6 % (11.8-14.1); RDW-SD 44.8 fL
[2020-06-30 17:45] LABS: Absolute Basophil Count 0.05 10^3/uL (0.0-0.2); Absolute Lymphocyte Count 0.82 10^3/uL (1.2-3.4); Absolute Neutrophil Count 23.76 10^3/uL (1.2-6.7); WBC 26.43 10^3/uL (4.4-10.8)
[2020-06-30 17:51] LABS: ESR 65 mm//hr (0-20)
[2020-06-30 17:59] LABS: ALT 44 U/L (16-63); AST 21 U/L (15-37); Albumin 3.1 g/dL (3.4-5.0); Alkaline Phosphatase 56 U/L (46-116); Anion Gap 8.2 mmol/L (3-11); BUN 22 mg/dL (7-18); Bilirubin, Total 0.7 mg/dL (0.2-1.0); C-Reactive Protein 14.79 mg/dL (0.0-0.3); CO2 28.8 mmol/L (21.0-32.0); CREATININE 1.7 mg/dL (0.70-1.30); Calcium 9.4 mg/dL (8.5-10.1); Chloride 97 mmol/L (98-107); Estimated GFR 40.28 (mL/min/1.73m2); Glucose 127 mg/dL (74-106); Potassium 4.7 mmol/L (3.5-5.1); Sodium 134 mmol/L (136-145); Total Protein 9.1 g/dL (6.4-8.2)
[2020-06-30 18:28] LABS: Neutrophils % 89.9
[2020-06-30 18:29] LABS: Diff Comment Agrees w/ Instrument; RBC Morphology Normal
[2020-06-30] MEDS: Normal Saline - Diluent 50 ML VIAL IV (18:30)
[2020-06-30] MEDS: Normal Saline Flush 10 ML SYR IVP (18:30)
[2020-06-30] MEDS: VANCOMYCIN 1,250 MG in Normal Saline 250 ML 166.6666 MG IVPB (18:38)
[2020-06-30 18:55] LABS: COVID-19 PCR Negative (Negative)
--- NOTE | 2020-06-30 19:11 | DI.VRAD_ITS ---
PROCEDURE INFORMATION: Exam: CTA Chest With Contrast Exam date and time: 06/30/2020 6:28 PM Age: 69 years old Clinical indication: Shortness of breath and wheezing TECHNIQUE: Imaging protocol: Computed tomographic angiography of the chest with contrast. 3D rendering (Not supervised by radiologist): MIP and/or 3D reconstructed images were created by the technologist. COMPARISON: CT CHEST PE CTA 10/30/2019 1:10 AM FINDINGS: Pulmonary arteries: There are regions of decreased density within some of the basilar segmental and subsegmental pulmonary arterial branches which appears to be related to artifact. No filling defects within the pulmonary arteries are identified to suggest pulmonary embolism. The pulmonary arteries are not dilated. Aorta: Unremarkable. No aortic aneurysm. No aortic dissection. Lungs: Again noted is mild centrilobular emphysema within the upper lobes. There are stable regions of mild atelectasis/scarring within the lung bases. Again noted is mild central peribronchial thickening. There is no bronchiectasis or bronchiolectasis. Pleural spaces: Unremarkable. No pneumothorax. No pleural effusion. Heart: There is no bowing of the interventricular septum or disproportionate enlargement of the right heart. There is no reflux of contrast into the IVC or hepatic veins. Heart size is near the upper limits of normal. There is no pericardial effusion. Lymph nodes: There is a stable 1 cm nodular structure within the anterior mediastinum on image 248, series 5, likely a lymph node. Bones/joints: Unremarkable. No acute fracture. Soft tissues: Unremarkable. IMPRESSION: 1. No pulmonary embolism identified. 2. Mild emphysema, as on prior study. 3. Mild atelectasis/scarring at the lung bases, as on prior study. 4. Stable mildly enlarged anterior mediastinal lymph node, likely benign. Dictated and Authenticated by: Raymond Huynh MD. Ordering:JEANNA Arias MD
[2020-06-30 20:10] LABS: Procalcitonin 12.6 ng/mL
[2020-06-30] MEDS: cefTRIAXone 2 GM/50 ML BAG IVPB (20:40)
[2020-06-30] MEDS: Acetaminophen 325 MG TAB 650 MG PO (21:35)
[2020-06-30] MEDS: Enoxaparin 40 MG/0.4 ML SYR SC (21:36)
[2020-06-30 21:49] LABS: Bilirubin Negative (Negative); Blood Trace-intact (Negative); Clarity Clear (Clear); Glucose Negative (Negative); Ketones Negative (Negative); Leukocyte Esterase Negative (Negative); Nitrite Negative (Negative); Specific Gravity <= 1.005 (1.005-1.025); Urobilinogen 0.2 EU/dL (Up TO 0.2)
[2020-06-30 21:56] LABS: Bacteria Rare HPF (Negative); C & S Indicated? No; Casts Negative LPF (Negative); Crystals Negative HPF (Negative); Epithelial Cells Negative HPF (Negative); Mucus Negative (Negative); RBC 0-2 HPF (0-2); WBC 0-2 HPF (0-5)
--- NOTE | 2020-06-30 22:28 | HPE_ITS ---
Date of service: 06/30/20 Time of Service: 22:28 Assessment and Plan Assessment and plan (1) Sepsis due to cellulitis: Status: Acute Assessment and plan: Cover with empiric vancomycin/ceftriaxone 2 grams daily. IVF. Trend CRP/procalcitonin/wbc. Check venous doppler BLE's to r/o DVT. (2) NSTEMI (non-ST elevated myocardial infarction): Status: Acute Assessment and plan: Likely Type 2 NSTEMI in setting of sepsis, suspected rapid Afib; also, in setting of LORETO. Will give asa, continue to monitor on tele, obtain echo. Outpatient ischemic workup. Low suspicion for true ACS at this time. (3) Acute exacerbation of chronic obstructive pulmonary disease (COPD): Status: Acute Assessment and plan: Start prednisone, scheduled and prn nebs. Abx as above. Advised to quit. (4) Paroxysmal atrial fibrillation with rapid ventricular response: Status: Suspected Assessment and plan: We will try to catch this on an EKG if it recurs. Monitor on tele. Trend troponins. Obtain echo. (5) Acute kidney injury superimposed on chronic kidney disease: Status: Acute Assessment and plan: The patient appears clinically dry but does have LE edema, reflective of his pulmonary hypertension. As he is currently requiring IVF for sepsis. Monitor Cr with IV hydration and treatment of infection. Bladder scans ordered. (6) Type 2 diabetes mellitus: Status: Chronic Assessment and plan: SSI Qualifiers: Diabetes mellitus complication status: with hyperglycemia Diabetes mellitus intermediate manager insulin use: without intermediate manager use Qualified Code(s): E11.65 - Type 2 diabetes mellitus with hyperglycemia (7) Urinary frequency: Status: Acute Assessment and plan: UA negative. Bladder scans. (8) Hypothyroidism: Status: Suspected Assessment and plan: Previously, subclinical hypothyroidism. Check TSH. Qualifiers: Hypothyroidism type: acquired Qualified Code(s): E03.9 - Hypothyroidism, unspecified (9) Pulmonary hypertension: Status: Chronic Assessment and plan: Strong suspicion for underlying NANCY. Needs outpatient sleep study. Judicious IVF. (10) Breathing sounds, abnormal: Status: Acute Assessment and plan: I strongly suspect NANCY. Would benefit from a sleep study as outpatient. (11) DVT prophylaxis: Status: Acute Assessment and plan: Enoxaparin No TEDs/SCDs until results of US of BLEs are known. (12) Discharge planning issues: Status: Acute Assessment and plan: Full code Low threshold to transfer to the ICU. History of Present Illness History of Present Illness Chief Complaint: Fever, redness and swelling of legs Narrative: Mr Artis is a 69 year old male with PMHx of chronic bilateral lower extremity lymphedema and chronic venous stasis dermatitis with h/o prior cellulitis, as well as h/o NIDDM2, Non-oxygen dependent COPD, hypertension, hyperlipidemia, tobacco abuse, who was brought in to [facility] ED today for worsening left lower extremity redness, swelling, fever, and altered mental status. Per patient, he has felt fine but tired and his became alarmed when he kept falling asleep in the bathroom today and took his temperature and noticed that it was elevated. He specifically denies exposure to COVID-19, worsening of redness/swelling in his legs, urinary symptoms other than chronic urinary frequency from being on diuretics. He has a chronic cough productive of clear sputum. He is slightly shorter of breath today. He was febrile in the ED, tachycardic to 140s, and the clinical impression was of sepsis due to cellulitis. He was also noted to be wheezing. He has a history of strep agalactiae bacteremia and MSSA in a wound. The patient was initiated on vancomycin/ceftriaxone as well as IVF. Hospitalists were asked to admit the patient. Review of Systems All systems reviewed & are unremarkable except as noted in HPI and below PFSH Medical History CKD (chronic kidney disease) COPD (chronic obstructive pulmonary disease) with emphysema Essential hypertension Hyperlipidemia, unspecified Hypothyroidism Obesity Sepsis syndrome Stasis dermatitis of both legs Tobacco use disorder Type 2 diabetes mellitus Venous insufficiency Surgical History Colonoscopy - MAC (11/10/16) Orchiectomy, Radical Left, s/p trauma Repair, ACL Right-Age 17 Family History Father , SC? at age 79. Essential hypertension Myocardial infarction Maternal Aunt Neoplasm Adnexa NOS Maternal Grandmother Neoplasm Adnexa NOS Mother , CVA & PNA at age 81. Essential hypertension Stroke Paternal Grandfather Myocardial infarction Sister No problems noted. Brother No problems noted. Social History Smoking/Tobacco Use Status: Current every day Tobacco Type: cigarettes Smoking packs per day: 0.5 Smoking cigarettes per day: 10.0 Years smoked: 30 Smoking pack-years: 15.00 Smoking risk assessment performed?: Yes Alcohol Intake: current Alcohol Intake frequency: a few times a month Drug use: Never Substance use type: does not use Caregiver/Support person: No Household members: spouse and children Number of Children: 2 number of grandchildren: 4 Communication Needs: None What type of physical activity do you participate in: resistance training Frequency: 1-2 times per week Seatbelt use: always Drive intox or ride w/intox commercial driver: No Do you feel safe at home: Yes Do you feel safe in your relationship?: Yes Meds Allergies and Home Medications Allergies Allergy/AdvReac Type Severity Reaction Status Date / Time shellfish derived Allergy Intermediate Hives Unverified 06/30/20 19:17 hay fever Allergy Mild runny nose Uncoded 06/30/20 19:17 and cough Home Medications Medication Instructions Recorded Confirmed Type aspirin 81 mg PO PRN tab 09/22/16 06/30/20 History cinnamon bark 500 mg PO DAILY PRN 09/22/16 06/30/20 History magnesium oxide 250 mg PO DAILY PRN 09/22/16 06/30/20 History calcium carbonate 500 mg calcium 500 mg PO DAILY PRN 09/15/19 06/30/20 History (1,250 mg) tablet blood-glucose meter [OneTouch #1 each 11/02/19 06/29/20 Rx UltraMini] atorvastatin 10 mg tablet 10 mg PO DAILY #90 tab-cap 12/07/19 06/29/20 Rx blood sugar diagnostic #100 ea 12/07/19 06/29/20 Rx glipizide 5 mg tablet, extended 5 mg PO DAILY #90 tab-cap 12/07/19 06/30/20 Rx release 24 hr lancets #100 ea 12/07/19 06/29/20 Rx metformin 500 mg tablet 500 mg PO BID #180 tab-cap 12/07/19 06/30/20 Rx comp.stocking,knee,long,medium #2 unit 06/01/20 06/29/20 Rx furosemide 20 mg tablet 30 mg PO DAILY AM #135 tab-cap 06/08/20 06/30/20 Rx Exam Narrative Exam Narrative: General: Pleasant middle-aged male who was briefly observed sleeping and definitely had NANCY breathing pattern; easily arousable, A&Ox3, answers questions appropriately, follows commands, no dyspnea/tachypnea. Neurological: A&Ox3, no focal deficits Psychiatric: appropriate speech pattern/content Skin: BLE erythematous, warm, LLE with areas of desquamation, no obvious infected wound; chronic venous stasis dermatitis HEENT: Atraumatic, normocephalic, EOMI, dry MM, clear oropharynx, no submandibular or cervical lymphadenopathy, no goiter or JVD Cardiovascular: RRR, tachycardic, no m/r/g Lungs: wheezing on expiration B Gastrointestinal: soft, nontender, nondistended Genitourinary: deferred Extremities: 2+ BLE edema, chronic venous stasis, but BLE's do look erythematous, weeping, c/w cellulitis Results Imaging Additional studies: CTA chest: 1. No pulmonary embolism identified. 2. Mild emphysema, as on prior study. 3. Mild atelectasis/scarring at the lung bases, as on prior study. 4. Stable mildly enlarged anterior mediastinal lymph node, likely benign. EKG: ST, HR 115, nonspecific ST-T changes, no acute ischemia Tele strip reviewed: when HR elevated to 140s, does appear to be irregular, and P waves cannot always be identified. Sinus arrhythmia vs Afib. Labs Result diagrams: 06/30/20 17:25 06/30/20 17:25 Labs: Laboratory Results - last 24 hr 06/30/20 06/30/20 06/30/20 16:49 17:25 17:25 WBC RBC Hgb Hct MCV MCH MCHC RDW Plt Count MPV Immature Gran % Neutrophils % Lymphocytes % Monocytes % Eosinophils % Basophils % Nucleated RBC % Absolute Neutrophils Absolute Lymphocytes Absolute Monocytes Absolute Eosinophils Absolute Basophils RBC Morphology ESR VBG Lactate 2.0 H Sodium 134 L Potassium 4.7 Chloride 97 L Carbon Dioxide 28.8 Anion Gap 8.2 BUN 22 H Creatinine 1.7 H Estimated GFR/1.73 m2 40.28 Glucose 127 H Calcium 9.4 Total Bilirubin 0.7 AST 21 ALT 44 Alkaline Phosphatase 56 C-Reactive Protein Cancelled 14.79 H Total Protein 9.1 H Albumin 3.1 L Procalcitonin 12.6 Urine Color Urine Clarity Urine pH Ur Specific [place] Urine Protein Urine Ketones Urine Blood Urine Nitrite Urine Bilirubin Urine Urobilinogen Ur Leukocyte Esterase Urine RBC Urine WBC Ur Epithelial Cells Urine Crystals Urine Bacteria Urine Casts Urine Mucus Ur Culture Indicated? Urine Glucose COVID-19 Source SARS-CoV-2 (PCR) 06/30/20 06/30/20 06/30/20 17:25 17:25 17:52 WBC 26.43 H* RBC 4.40 Hgb 12.6 L Hct 39.5 L MCV 89.8 MCH 28.6 MCHC 31.9 L RDW 13.6 Plt Count 388 MPV 8.6 Immature Gran % 3.1 Neutrophils % 89.9 Lymphocytes % 3.1 Monocytes % 3.7 Eosinophils % 0.0 Basophils % 0.2 Nucleated RBC % 0 Absolute Neutrophils 23.76 H Absolute Lymphocytes 0.82 L Absolute Monocytes 0.98 H Absolute Eosinophils 0.00 Absolute Basophils 0.05 RBC Morphology Normal ESR 65 H VBG Lactate Sodium Potassium Chloride Carbon Dioxide Anion Gap BUN Creatinine Estimated GFR/1.73 m2 Glucose Calcium Total Bilirubin AST ALT Alkaline Phosphatase C-Reactive Protein Total Protein Albumin Procalcitonin Urine Color Urine Clarity Urine pH Ur Specific [place] Urine Protein Urine Ketones Urine Blood Urine Nitrite Urine Bilirubin Urine Urobilinogen Ur Leukocyte Esterase Urine RBC Urine WBC Ur Epithelial Cells Urine Crystals Urine Bacteria Urine Casts Urine Mucus Ur Culture Indicated? Urine Glucose COVID-19 Source Nasopharyx SARS-CoV-2 (PCR) Negative 06/30/20 21:07 WBC RBC Hgb Hct MCV MCH MCHC RDW Plt Count MPV Immature Gran % Neutrophils % Lymphocytes % Monocytes % Eosinophils % Basophils % Nucleated RBC % Absolute Neutrophils Absolute Lymphocytes Absolute Monocytes Absolute Eosinophils Absolute Basophils RBC Morphology ESR VBG Lactate Sodium Potassium Chloride Carbon Dioxide Anion Gap BUN Creatinine Estimated GFR/1.73 m2 Glucose Calcium Total Bilirubin AST ALT Alkaline Phosphatase C-Reactive Protein Total Protein Albumin Procalcitonin Urine Color Yellow Urine Clarity Clear Urine pH 6.0 Ur Specific [place] <= 1.005 Urine Protein Negative Urine Ketones Negative Urine Blood Trace-intact H Urine Nitrite Negative Urine Bilirubin Negative Urine Urobilinogen 0.2 Ur Leukocyte Esterase Negative Urine RBC 0-2 Urine WBC 0-2 Ur Epithelial Cells Negative Urine Crystals Negative Urine Bacteria Rare Urine Casts Negative Urine Mucus Negative Ur Culture Indicated? No Urine Glucose Negative COVID-19 Source SARS-CoV-2 (PCR) Last Vital Signs Temp 38.8 C H 06/30/20 16:42 Pulse 111 H 06/30/20 18:15 Resp 26 H 06/30/20 19:40 BP 97/55 L 06/30/20 18:15 Pulse Ox 99 06/30/20 18:50 COVID-19 Screening Have you, or household traveled for leisure in last 14 days?: No Had IN PERSON contact w/suspected or confirmed C-19 person: No
[2020-06-30] MEDS: Normal Saline 1,000 ML 150 ML IV (22:59)
[2020-06-30 23:03] LABS: NT-proBNP 2112 pg/mL (<300)
[2020-06-30 23:07] LABS: Troponin I 0.11 ng/mL (<0.06)
[2020-06-30] MEDS: predniSONE 20 MG TAB 40 MG PO (23:12)
[2020-06-30 23:21] LABS: Troponin I 0.14 ng/mL (<0.06)
[2020-06-30] MEDS: Levalbuterol 1.25 MG/3 ML UPD VIAL UPD (23:23)
[2020-06-30] MEDS: Aspirin E.C. 325 MG TABEC PO (23:36)
[2020-07-01] VITALS (54 sets, daily range): BP systolic 106–147; BP diastolic 33–109; PULSE 90–139; RESP 4–40; TEMP 36.2–37.6; O2SAT 85–100
[2020-07-01] MEDS: Normal Saline 1,000 ML 150 ML IV (05:30)
--- NOTE | 2020-07-01 06:24 | NUR.NOTE ---
noted fine red petechiae to torso. n/c of itching.
[2020-07-01 06:47] LABS: Lactate 1.2 mmol/L (0.6-1.4)
[2020-07-01 06:48] LABS: HCT 32.3 % (40.0-50.0); HGB 10.3 g/dL (13.5-17.5); MCH 28.7 pg (27.0-33.0); MCHC 31.9 % (32.0-36.0); MPV 8.6 fL (8.0-11.0); Nucleated RBC 0 %; Platelet Count 308 10^3/uL (130-400); RBC 3.59 10^6/uL (4.36-5.78); RDW 13.8 % (11.8-14.1); RDW-SD 45.4 fL; WBC 24.56 10^3/uL (4.4-10.8)
[2020-07-01 07:04] LABS: Hemoglobin A1C 6.4 % (<5.7)
[2020-07-01 07:16] LABS: Anion Gap 9.1 mmol/L (3-11); BUN 21 mg/dL (7-18); CO2 24.9 mmol/L (21.0-32.0); CREATININE 1.5 mg/dL (0.70-1.30); Calcium 8.7 mg/dL (8.5-10.1); Chloride 99 mmol/L (98-107); Estimated GFR 46.54 (mL/min/1.73m2); Glucose 135 mg/dL (74-106); Magnesium 1.9 mg/dL (1.8-2.4); Potassium 3.9 mmol/L (3.5-5.1); Sodium 133 mmol/L (136-145); TSH 2.69 uIU/mL (0.36-3.74)
[2020-07-01 07:21] LABS: Absolute Lymphocyte Count 0.74 10^3/uL (1.2-3.4); Absolute Monocyte Count 0.25 10^3/uL (0.1-0.8); Absolute Neutrophil Count 23.33 10^3/uL (1.2-6.7); Bands % 21; Metamyelocytes % 1
[2020-07-01 07:22] LABS: Diff Comment Manual Differential; RBC Morphology Normal
[2020-07-01 07:36] LABS: C-Reactive Protein 23.78 mg/dL (0.0-0.3); Troponin I 0.12 ng/mL (<0.06)
[2020-07-01] MEDS: Insulin Aspart 300 UNITS/3 ML PEN SC ×4 (07:50→22:03)
--- NOTE | 2020-07-01 08:00 | DI.US_ITS ---
EXAM: US EXTREMITY VENOUS BI CLINICAL HISTORY: BLE edema, concern for DVT. TECHNIQUE: Ultrasound performed using standard protocol. COMPARISON: US US AAA SCREENING from 03/08/2020 FINDINGS: Duplex venous ultrasound was performed according to the usual protocol. The deep veins are freely com pressible throughout and there is normal flow augmentation with manual calf compression. 2D and Doppl er evaluation are unremarkable. Incidental note is made of multiple visible lymph nodes in the left inguinal region. Largest measure s about 40 x 18 x 16 millimeters. IMPRESSION: No evidence of deep venous thrombosis of the right or left lower extremity. DATA REPOSITORY:
[2020-07-01] MEDS: predniSONE 20 MG TAB 40 MG PO (08:01)
[2020-07-01] MEDS: Ipratropium 0.5 MG/2.5 ML UPD VIAL 0.25 MG UPD (08:04)
[2020-07-01] MEDS: Aspirin E.C. 81 MG TABEC PO (08:04)
[2020-07-01] MEDS: Levalbuterol 1.25 MG/3 ML UPD VIAL UPD (08:04)
[2020-07-01] MEDS: Atorvastatin 10 MG TAB PO (08:07)
[2020-07-01] MEDS: Pantoprazole 40 MG TABCR PO (08:08)
--- NOTE | 2020-07-01 08:24 | NUR.NOTE ---
Ultrasound of bilateral lower extremities is performed in patient's room.Nursing Note:
--- NOTE | 2020-07-01 08:31 | INITIAL_ITS ---
- If Service Date Differs Date of service: 07/01/20 Time of Service: 08:31 Care Management Initial Assess REASON FOR HOSPITALIZATION:: Spesis due to cellulitis of BLE's. PAST MEDICAL HISTORY/PAST SURGICAL HISTORY:: Medical History: CKD (chronic kidney disease), COPD (chronic obstructive pulmonary disease) with emphysema, Essential hypertension, Hyperlipidemia, unspecified, Hypothyroidism, Obesity, Sepsis syndrome,. Stasis dermatitis of both legs, Tobacco use disorder, Type 2 diabetes mellitus, and Venous insufficiency. Surgical History: Colonoscopy - MAC (11/10/16), Orchiectomy, Radical - Left, s/p trauma, and Repair, ACL - Right-Age 17. PREVIOUS FUNCTIONAL STATUS/SOCIAL/FAMILY SUPPORTS:: Mejia lives in [facility] with his , Marifer, their 19 year old son, Сергей, and his [id number]. Mejia and Marifer also have a daughter who lives locally and four grandchildren. 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 When not working, he enjoys playing golf, watching his grandkids play baseball, and doing yard work. Mejia is independent at baseline. CURRENT FUNCTIONAL STATUS:: Mejia is sitting on the side of his hospital bed when CM comes to meet with him. His , Marifer, is present in the room. Mejia is pleasant and talkative. He talks about the cellulitis of his lower extremities and how his PCP attempted to treat it on an outpatient basis with oral antibiotics. He states his lower legs are finally looking a little bit better and he is hopeful he will continue to make improvement. CM will continue to follow. ADVANCE DIRECTIVES:: None on file; was given form to complete at last admission but has not done so yet. Has patient been provided with info about the portal/API?: No Did the patient sign up for the portal?: No CODE STATUS:: Full Code INSURANCE COVERAGE / FINANCIAL ISSUES:: Medicare. CURRENT HOME/COMMUNITY SERVICES/EQUIPMENT:: Mejia does not have any home or community services. He has access to a walker, wheelchair, shower chair and bench, and handrails in the bathroom at home. The medical equipment belonged to his [id number] who in November of 2019. PRIMARY CARE PHYSICIAN:: Martha Valera NP POTENTIAL DISCHARGE NEEDS:: Follow up appointment with PCP and discharge plan of care. PATIENT/FAMILY EDUCATION NEEDS:: Discharge instructions, limitations, follow up plan of care, including Ask Me Three and self management. ANTICIPATED BARRIERS TO DISCHARGE:: None. TRANSPORTATION:: Via private vehicle with family. PLAN:: Anticipate Mejia will be discharged home with no services when medically cleared by provider, unless there is a need for IV antibiotics in which case he may require new Home Health nursing services. He will follow up with his PCP and discharge plan of care as directed. Family will drive him home via private vehicle when ready. CM will continue to follow.
[2020-07-01] MEDS: Insulin NPH-Human 300 UNITS/3 ML PEN 20 UNIT SC (08:35)
--- NOTE | 2020-07-01 08:41 | NUR.NOTE ---
Bilateral lower extremity ultrasound concludes. Patient tolerates same well.
--- NOTE | 2020-07-01 08:55 | DI.VRAD_ITS ---
PROCEDURE INFORMATION: Exam: US Duplex Lower Extremity Veins, Bilateral Exam date and time: 07/01/2020 12:00 AM Age: 69 years old Clinical indication: Other: Edema TECHNIQUE: Imaging protocol: Real-time duplex ultrasound of the extremities with 2-D elliott scale, color Doppler flow and spectral waveform analysis with image documentation. Complete exam focused on the bilateral lower extremity veins. COMPARISON: US EXTREMITY VENOUS BI 10/31/2019 8:09 AM FINDINGS: Right deep veins: Unremarkable. The common femoral, femoral, proximal profunda femoral and popliteal veins are patent without thrombus. Normal Doppler waveforms. Normal compressibility and/or augmentation response. Right superficial veins: Saphenofemoral junction is patent without thrombus. Left deep veins: Unremarkable. The common femoral, femoral, proximal profunda femoral and popliteal veins are patent without thrombus. Normal Doppler waveforms. Normal compressibility and/or augmentation response. Left superficial veins: Saphenofemoral junction is patent without thrombus. Soft tissues: Multiple lymph nodes in the left groin. Largest 4 x 1.6 x 1.8 cm IMPRESSION: No evidence of deep vein thrombosis. Dictated and Authenticated by: Rina Barclay MD. Ordering:VIKTOR Novak MD
--- NOTE | 2020-07-01 09:30 | RT.EKG_ITS ---
APPROVED REPORT Exam: Resting ECG Patient Location: I HR:96 bpm ECG Measurements Heart Rate 96 AXIS MN 219 P 51 QRSd 95 QRS 96 QT 354 T 41 QTc 448 Conclusion Sinus rhythm...normal P axis, V-rate 60- 99 Prolonged MN interval...MN >215, V-rate 91-120 Probable left atrial enlargement...P >50mS, <-0.10mV V1 Right axis deviation...QRS axis ( 91,269) Abnrm R prog, consider ASMI or lead placement...Q >30mS, diminished R, V1-V2 Nonspecific repol abnormality, diffuse leads...ST dep, T flat/neg, ant/lat/inf
--- NOTE | 2020-07-01 09:58 | NUR.NOTE ---
RN speaks to Respiratory Therapist to perform EKG. Respiratory therapist is aware of order and will perform EKG upon completion of morning meeting. Physical therapist begins to work with patient.Nursing Note:
--- NOTE | 2020-07-01 10:17 | NUR.NOTE ---
RN calls Hospitalist to inquire if he could place a Vancomycin trough order before commencement of 10:00 a.m. order to give 1.25gm of Vancomycin.Nursing Note:
--- NOTE | 2020-07-01 10:21 | NUR.NOTE ---
RN calls pharmacist concerning vanco trough prior to giving 1.25mg of Vancomycin. Pharmacist tells RN to give dose since Vancomycin trough is not due.Nursing Note:
[2020-07-01] MEDS: VANCOMYCIN/WATER (PEG) 1.25 GM/250 ML BAG IV (10:25)
--- NOTE | 2020-07-01 11:07 | PGE_ITS ---
Date of Service Date of service: 07/01/20 Time of Service: 11:07 Assessment and Plan Assessment and plan (1) Sepsis due to cellulitis: Status: Acute Assessment and plan: continue Vancomycin, change CTRX to Zosyn (better coverage for Pseudomonas, anaerobes, Enterobacteriacae). He is no longer hypotensive and no longer encephalopathic. He is eating and drinking ok, therefore will dc iv fluids to avoid fluid overload in setting of chronic leg edema. cont. to monitor labs (BMP, CBC, CRP, procalcitonin); await wound care consult. If cellulitis is not rapidly improving then will need imaging to rule out osteomyelitis. (2) NSTEMI (non-ST elevated myocardial infarction): Status: Acute Assessment and plan: I agree w/ Dr. Garces that this is likely demand ischemia i.e. type 2 NSTEMI and d/t to coronary plaque rupture. Continue aspirin and statin medications while we treat the underlying cause which is his sepsis. POCUS exam of his heart showed normal left ventricular systolic function but evidence of chronic hypertension with LVH as well as pulmonary hypertension as evidenced by D-shaped deformity of the interventricular septum. We will check formal echocardiogram tomorrow. Defer ischemic work-up to outpatient. (3) Paroxysmal atrial fibrillation with rapid ventricular response: Status: Suspected Assessment and plan: Rhythm remains sinus tachycardia. Will monitor for supraventricular arrhythmias. He has a good substrate for developing PAF or PSVT due to his underlying COPD and probable NANCY. (4) Acute kidney injury superimposed on chronic kidney disease: Status: Acute Assessment and plan: Patient's creatinine is improving but remains mildly elevated at 1.5. Baseline level was 1.3 and he presented with a creatinine 1.7 and BUN of 22. At this point patient is no longer hypotensive he is eating and drinking fine therefore I discontinued IV fluids. We will continue to monitor daily BMP and monitor urine output. Avoid nephrotoxic drugs such as NSAIDs. (5) Type 2 diabetes mellitus: Status: Chronic Assessment and plan: NovoLog per sliding scale. I discontinued his prednisone as he has no evidence for COPD exacerbation. He has no sputum production no cough and really no dyspnea. CT scan of his chest showed no pulmonary infiltrates but shows emphysema. Qualifiers: Diabetes mellitus chcf insulin use: without chcf use Diabetes mellitus complication status: with hyperglycemia Qualified Code(s): E11.65 - Type 2 diabetes mellitus with hyperglycemia (6) Hypothyroidism: Status: Suspected Assessment and plan: Previously, subclinical hypothyroidism. Check TSH. Qualifiers: Hypothyroidism type: acquired Qualified Code(s): E03.9 - Hypothyroidism, unspecified (7) Pulmonary hypertension: Status: Chronic Assessment and plan: Last echocardiogram from October 29, 2019 demonstrated normal left ventricular size and function with mild concentric LVH with no regional wall motion abnormalities. LVEF was 50%. RV was normal in size with normal RV systolic function with mild pulmonary hypertension with RVSP of 36. We will repeat his echocardiogram in the morning. Recommend outpatient PSG for evaluation of probable NANCY. (8) DVT prophylaxis: Status: Acute Assessment and plan: Enoxaparin No TEDs/SCDs until results of US of BLEs are known. (9) COPD (chronic obstructive pulmonary disease) with emphysema: Status: Chronic Assessment and plan: Discontinue prednisone as there is no evidence for COPD exacerbation. He has no wheezing and no coughing or sputum production. I have changed his ipratropium from scheduled to as needed. Qualifiers: Emphysema type: unspecified Qualified Code(s): J43.9 - Emphysema, unspecified (10) Discharge planning issues: Status: Acute Assessment and plan: Full code Patient was made an ICU admission this morning due to his elevated troponin and tachycardia and presentation and a septic picture. However he has now hemodynamically stable and can be transferred to the medical/surgical bed Subjective Subjective Interval history since last seen: 69-year-old male with history of COPD type 2 diabetes mellitus probable NANCY has been undiagnosed and chronic venous stasis dermatitis with prior history of cellulitis of his legs presents emergency department with confusion fever 38.8 and worsening cellulitis in his legs. Patient presented with a septic picture with an elevated white count 26,000, CRP of 23, procalcitonin of 12.6 in addition to his confusion and tachycardia. Initially the patient was not hypotensive on arrival but later developed mild hypotension that responded to IV fluids with pressure as low as 81/40 and 97/55. He did not require vasopressors. Blood cultures were obtained and he was started on vancomycin and ceftriaxone. Patient's mental status has improved he is back to his baseline cognitive function. He denies any shortness of breath or chest pain or cough or sputum production. He has no nausea or vomiting or abdominal pain. WBCs remain elevated 24,000 with a leftward shift. He still has acute kidney injury with elevated creatinine 1.5 and a BUN of 21. Patient had a troponin leak with troponin levels of 0.11 with repeat levels of 0.14 and 0.12. EKG showed no acute ischemic event. [id number] ultrasound was done and showed normal LV systolic function but some D-shaped septal deformity consistent with pulmonary hypertension. CT of the chest was done last night showed no infiltrates he does have some mild emphysema and some chronic scarring of the lungs at the bases chronically mildly enlarged anterior mediastinal lymph node and no PE. Venous duplex of his legs was done this morning showed no DVT. This morning his blood pressure remained stable although he is still mildly tachycardic. With sinus tachycardia. Dr. Garces, product development engineer, reported that he may have had episode of paroxysmal atrial fibrillation seen on the monitor last night but not able to be captured on EKG last night. Patient has no known history of PAF. Exam Narrative Exam Narrative: Obese male sitting up at the bedside alert and oriented person place time circumstance. Denies any chest pain or dyspnea. Lungs are barrel chested but clear to auscultation no wheezes rales or rhonchi. Heart is regular but tachycardic with a soft systolic murmur over the apex no thrill heave or gallop Abdomen is obese soft nontender nondistended normal bowel sounds. Legs are edematous 3+ edema from his thighs down to his feet and ankles. He has chronic venous stasis changes with bronze purplish discoloration of his lower legs with flaking skin over the left leg over the pretibial surface and on the right leg he has a superficial ulceration with oozing some yellowish discharge. Toes have thickened hypertrophic nails. He has thickened calluses on his MTP joints. Neuro exam is nonfocal grossly intact normal motor exam. Sensory exam intact to light touch. Objective Last Vital Signs Temp 36.6 C 07/01/20 08:08 Pulse 120 H 07/01/20 09:14 Resp 22 07/01/20 08:05 BP 131/65 07/01/20 07:47 Pulse Ox 98 07/01/20 08:05 Laboratory Results - last 24 hr 06/30/20 06/30/20 06/30/20 16:49 17:25 17:25 WBC RBC Hgb Hct MCV MCH MCHC RDW Plt Count MPV Immature Gran % Neutrophils % Band Neutrophils % Lymphocytes % Monocytes % Eosinophils % Basophils % Metamyelocytes % Nucleated RBC % Absolute Neutrophils Absolute Lymphocytes Absolute Monocytes Absolute Eosinophils Absolute Basophils RBC Morphology ESR VBG Lactate 2.0 H Sodium 134 L Potassium 4.7 Chloride 97 L Carbon Dioxide 28.8 Anion Gap 8.2 BUN 22 H Creatinine 1.7 H Estimated GFR/1.73 m2 40.28 Glucose 127 H Hemoglobin A1c Calcium 9.4 Magnesium Total Bilirubin 0.7 AST 21 ALT 44 Alkaline Phosphatase 56 Troponin I 0.11 H* C-Reactive Protein Cancelled 14.79 H NT-Pro-B Natriuret Pep 2112 H Total Protein 9.1 H Albumin 3.1 L Procalcitonin 12.6 TSH Urine Color Urine Clarity Urine pH Ur Specific [place] Urine Protein Urine Ketones Urine Blood Urine Nitrite Urine Bilirubin Urine Urobilinogen Ur Leukocyte Esterase Urine RBC Urine WBC Ur Epithelial Cells Urine Crystals Urine Bacteria Urine Casts Urine Mucus Ur Culture Indicated? Urine Glucose COVID-19 Source SARS-CoV-2 (PCR) 06/30/20 06/30/20 06/30/20 17:25 17:25 17:52 WBC 26.43 H* RBC 4.40 Hgb 12.6 L Hct 39.5 L MCV 89.8 MCH 28.6 MCHC 31.9 L RDW 13.6 Plt Count 388 MPV 8.6 Immature Gran % 3.1 Neutrophils % 89.9 Band Neutrophils % Lymphocytes % 3.1 Monocytes % 3.7 Eosinophils % 0.0 Basophils % 0.2 Metamyelocytes % Nucleated RBC % 0 Absolute Neutrophils 23.76 H Absolute Lymphocytes 0.82 L Absolute Monocytes 0.98 H Absolute Eosinophils 0.00 Absolute Basophils 0.05 RBC Morphology Normal ESR 65 H VBG Lactate Sodium Potassium Chloride Carbon Dioxide Anion Gap BUN Creatinine Estimated GFR/1.73 m2 Glucose Hemoglobin A1c Calcium Magnesium Total Bilirubin AST ALT Alkaline Phosphatase Troponin I C-Reactive Protein NT-Pro-B Natriuret Pep Total Protein Albumin Procalcitonin TSH Urine Color Urine Clarity Urine pH Ur Specific [place] Urine Protein Urine Ketones Urine Blood Urine Nitrite Urine Bilirubin Urine Urobilinogen Ur Leukocyte Esterase Urine RBC Urine WBC Ur Epithelial Cells Urine Crystals Urine Bacteria Urine Casts Urine Mucus Ur Culture Indicated? Urine Glucose COVID-19 Source Nasopharyx SARS-CoV-2 (PCR) Negative 06/30/20 06/30/20 07/01/20 21:07 22:57 06:30 WBC RBC Hgb Hct MCV MCH MCHC RDW Plt Count MPV Immature Gran % Neutrophils % Band Neutrophils % Lymphocytes % Monocytes % Eosinophils % Basophils % Metamyelocytes % Nucleated RBC % Absolute Neutrophils Absolute Lymphocytes Absolute Monocytes Absolute Eosinophils Absolute Basophils RBC Morphology ESR VBG Lactate Sodium 133 L Potassium 3.9 Chloride 99 Carbon Dioxide 24.9 Anion Gap 9.1 BUN 21 H Creatinine 1.5 H Estimated GFR/1.73 m2 46.54 Glucose 135 H Hemoglobin A1c Calcium 8.7 Magnesium 1.9 Total Bilirubin AST ALT Alkaline Phosphatase Troponin I 0.14 H* 0.12 H* C-Reactive Protein 23.78 H NT-Pro-B Natriuret Pep Total Protein Albumin Procalcitonin TSH 2.69 Urine Color Yellow Urine Clarity Clear Urine pH 6.0 Ur Specific [place] <= 1.005 Urine Protein Negative Urine Ketones Negative Urine Blood Trace-intact H Urine Nitrite Negative Urine Bilirubin Negative Urine Urobilinogen 0.2 Ur Leukocyte Esterase Negative Urine RBC 0-2 Urine WBC 0-2 Ur Epithelial Cells Negative Urine Crystals Negative Urine Bacteria Rare Urine Casts Negative Urine Mucus Negative Ur Culture Indicated? No Urine Glucose Negative COVID-19 Source SARS-CoV-2 (PCR) 07/01/20 07/01/20 07/01/20 06:30 06:30 06:30 WBC 24.56 H RBC 3.59 L Hgb 10.3 L D Hct 32.3 L MCV 90.0 MCH 28.7 MCHC 31.9 L RDW 13.8 Plt Count 308 MPV 8.6 Immature Gran % See Differential Neutrophils % 74.0 Band Neutrophils % 21 Lymphocytes % 3.0 Monocytes % 1.0 Eosinophils % 0.0 Basophils % 0.0 Metamyelocytes % 1 Nucleated RBC % 0 Absolute Neutrophils 23.33 H Absolute Lymphocytes 0.74 L Absolute Monocytes 0.25 Absolute Eosinophils 0.00 Absolute Basophils 0.00 RBC Morphology Normal ESR VBG Lactate 1.2 Sodium Potassium Chloride Carbon Dioxide Anion Gap BUN Creatinine Estimated GFR/1.73 m2 Glucose Hemoglobin A1c 6.4 H Calcium Magnesium Total Bilirubin AST ALT Alkaline Phosphatase Troponin I C-Reactive Protein NT-Pro-B Natriuret Pep Total Protein Albumin Procalcitonin TSH Urine Color Urine Clarity Urine pH Ur Specific [place] Urine Protein Urine Ketones Urine Blood Urine Nitrite Urine Bilirubin Urine Urobilinogen Ur Leukocyte Esterase Urine RBC Urine WBC Ur Epithelial Cells Urine Crystals Urine Bacteria Urine Casts Urine Mucus Ur Culture Indicated? Urine Glucose COVID-19 Source SARS-CoV-2 (PCR)
--- NOTE | 2020-07-01 11:27 | PHA.REVIEW ---
Pharmacy Admission Review - Admission Clinical Review (Last Reviewed 06/29/20 @ 11:37 by Martha Valera NP) NSTEMI (non-ST elevated myocardial infarction) (Acute) Breathing sounds, abnormal (Acute) Acute exacerbation of chronic obstructive pulmonary disease (COPD) (Acute) Discharge planning issues (Acute) DVT prophylaxis (Acute) Acute kidney injury superimposed on chronic kidney disease (Acute) Urinary frequency (Acute) Sepsis due to cellulitis (Acute) Bilateral cellulitis of lower leg (Acute) shellfish derived Allergy (Intermediate, Unverified 06/30/20 19:17) Hives hay fever Allergy (Mild, Uncoded 06/30/20 19:17) runny nose and cough Height 5 ft 9 in Weight 109 kg - Renal Dosing Renal Dosing: BUN 21 mg/dL (7-18) H 07/01/20 06:30 Creatinine 1.5 mg/dL (0.70-1.30) H 07/01/20 06:30 Medications needing adjustments: Reviewed List of meds needing interventions: eCrCl 47 ml/min, orders ok - Anticoagulation Anticoagulation: Hgb 10.3 g/dL (13.5-17.5) L D 07/01/20 06:30 Hct 32.3 % (40.0-50.0) L 07/01/20 06:30 Plt Count 308 10^3/uL (130-400) 07/01/20 06:30 Creatinine 1.5 mg/dL (0.70-1.30) H 07/01/20 06:30 DVT Prohphylaxis: Reviewed Medications: Enoxaparin Therapeutic Anticoagulation: Reviewed Medications: Aspirin - Opiate Usage Evaluate Pain Scale/Pains Meds: N/A Scheduled Bowel Reg ordered if on Opiates?: Yes (prn orders) - Relevant Labs ESR 65 mm//hr (0-20) H 06/30/20 17:25 Sodium 133 mmol/L (136-145) L 07/01/20 06:30 Potassium 3.9 mmol/L (3.5-5.1) 07/01/20 06:30 Chloride 99 mmol/L (98-107) 07/01/20 06:30 Magnesium 1.9 mg/dL (1.8-2.4) 07/01/20 06:30 C-Reactive Protein 23.78 mg/dL (0.0-0.3) H 07/01/20 06:30 Electrolytes, C-Reactive P, ESR: Reviewed - DM Control DM Control: Glucose 135 mg/dL (74-106) H 07/01/20 06:30 Hemoglobin A1c 6.4 % (<5.7) H 07/01/20 06:30 Finger Stick Blood Glucose 146 Finger Stick Blood Glucose 146 Finger Stick Blood Glucose 146 Finger Stick Blood Glucose 146 Finger Stick Blood Glucose 146 Insulin Dosing: Reviewed (aspart per SS + 20 u NPH daily) - Heart Failure/TN Heart Failure/TN: Troponin I 0.12 ng/mL (<0.06) H* 07/01/20 06:30 NT-Pro-B Natriuret Pep 2112 pg/mL (<300) H 06/30/20 17:25 EF%, MAURA's, B-Blockers, Diuretics: Reviewed (metoprolol prn IV; furosemide daily on home med list) - BP Control BP Control: Blood Pressure [Left Arm] 133/63 Blood Pressure 131/65 Blood Pressure 114/60 If elevated: Reviewed - Qtc Review If Elevated: N/A - IV to PO Switch IV Medications: Reviewed - Home Meds Home Med List reviewed: Intervened Relevent Home Meds Not ordered & why?: not ordered: furosemide, ODAs (aspart/nph ordered); confirmed and adjusted home meds per ext rx history; patient reports having COPD but med hx does not reveal any rx's for inhalers - Current meds Current Medication Order Review: Reviewed - Comments Comments/Follow Ups: Ceftriaxone 2 grams daily + Vancomycin per pharm protocol, currently dosed at 1250mg q16h -- trough due 07/03 @ 0900
--- NOTE | 2020-07-01 12:03 | IN_ITS ---
Date of service: 07/01/20 Time of Service: 09:55 PT Notes Visit Reasons: SEPSIS DUE TO CELLULITIS OF BLE'S Inpatient Physical Therapy Evaluation Date: July 01, 2020 Referring Doctor: Scarlet Garces PT Orders: PT CONSULT: Limited ability Precautions: Standard Patient Profile/Admitting Diagnosis: Demetrio is a 69-year-old male with a history of morbid obesity, CKD, COPD, hypertension, hyperlipidemia, diabetes and chronic lymphedema bilateral lower extremities presents with worsening left leg swelling and redness and fever yesterday via the ED. Admitted secondary to sepsis. PMHX: Medical History: CKD (chronic kidney disease), COPD (chronic obstructive pulmonary disease) with emphysema, Essential hypertension, Hyperlipidemia, unspecified, Hypothyroidism, Obesity, Sepsis syndrome,. Stasis dermatitis of both legs, Tobacco use disorder, Type 2 diabetes mellitus, and Venous insufficiency. Surgical History: Colonoscopy - MAC (11/10/16), Orchiectomy, Radical - Left, s/p trauma, and Repair, ACL - Right-Age 17. Social History/Home Situation: Lives at home with his , son and father in law. 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 Current Functional Limitations: Bilateral LE edema reducing his activity level. Patient notes he has been receiving Unna boot wrapping x1 month left x1 week right. Was previously fitted for compression stockings approximately a week ago has not received at this time Equipment Owned/DME: None Subjective: Demetrio was up sitting bedside alert and agreeable to PT consult this morning. He notes that overall is feeling well. Mild pain. Objective: General Observation: Bilateral LE edema with redness, erythema and noted drainage. Awaiting wound consultation. O2 via nasal cannula at 1.5 L. Patient being monitored via telemetry. IV right upper extremity Mental Status: Alert and oriented x3 Pain: 3?4/10 on visual analog scale ROM: Right Upper Extremity: Within normal limits Left Upper Extremity: Within normal limits Right Lower Extremity: Within functional limits with limited ankle dorsiflexion due to swelling Left Lower Extremity: Within functional limits limited ankle dorsiflexion due to swelling Strength: Right Upper Extremity: 5/5 and pain-free Left Upper Extremity: Shoulder flexion 4 -/5, abduction 4/5, external rotation 3 -/5, internal rotation 4/5 Right Lower Extremity: 5/5 and pain-free Left Lower Extremity: 5/5 and pain-free Sensation: Intact light touch Bed Mobility/Transfers: Supine?sit: Min assist of lower extremities Sit?stand: Supervision Stand?sit: Supervision Gait: Utilized front wheeled walker initially with bedside marching contact- guard assist. Patient then was able to demonstrate independent bedside marching without assistive device contact-guard assist without loss of balance Balance: Static Sitting: Normal Dynamic Sitting: Normal Static Standing: Normal Dynamic Standing: Good Special Tests: Mobility Limitations Standardized Measure [facility] AM-PAC 6 clicks Basic Mobility Inpatient Short Form: Raw Score: 20 Standardized Score: 35.83% Informed Consent/Education: Patient instructed in purpose of PT consult and plan of care. Assessment: Patient is a 69 year old male referred to physical therapy services with the diagnosis of sepsis due to bilateral lower extremity cellulitis. Patient presents with clinical signs and symptoms consistent with diagnosis, as demonstrated by the following impairment level findings: Lower extremity edema altering ankle range of motion decreasing functional endurance and ambulation tolerance. Impairments are contributing to the following functional hui itations: Decreased walking tolerance, decreased functional endurance due to bilateral lower extremity edema Patient is assessed as a Moderate 29259 complexity based on the following: History: As above Examination: As above Presentation: Evolving Decision Making: Moderate Goals: Goals X1 week 1. Supine-Sit independent 2. Sit-Supine independent 3. Sit-Stand independent 4. Stand-Sit independent 5. Bed-Chair independent 6. Chair-Bed independent 7. Gait independent 100 feet x 2 8. Stairs up/down 5 steps with railing independent Plan of Care/Treatment Plan: 1-2x/day, 7 days/week x 1 week. Plan of care has been reviewed with the PROGRAM SUPERVISOR providing the service under Physical Therapy direction. Initiate Physical Therapy intervention for strengthening, bed mobility, transfers, gait, stairs, balance training, use of assistive device. DISCHARGE RECOMMENDATIONS: Home once medically cleared TREATMENT CODE/[place]: [place] [id number], 9:55, 20 minutes [facility] Disclaimer: This note was created using [employer] voice recognition software. It was reviewed for major content. However, there may be multiple small discre pancies and errors due to the voice recognition aspects of the software.
--- NOTE | 2020-07-01 12:04 | NUR.NOTE ---
Patient is set up with his lunch tray. Patient sitting at side of be enjoying his lunch.Nursing Note:
--- NOTE | 2020-07-01 14:16 | NUR.NOTE ---
Patient sitting at side of bed visiting with his .Nursing Note:
[2020-07-01] MEDS: PIPERACILLIN/TAZO 4.5 GM in Normal Saline 100 ML IVPB ×2 (14:38→19:18)
[2020-07-01] MEDS: Normal Saline Flush 10 ML SYR IVP (19:19)
[2020-07-01] MEDS: Enoxaparin 40 MG/0.4 ML SYR SC (19:25)
--- NOTE | 2020-07-01 19:33 | WOUNDCONS_ITS ---
- If Service Date Differs Date of service: 07/01/20 Time of Service: 15:00 Wound Initial Evaluation Narrative: Patient is a 69 yom, he was admitted for sepsis r/t cellulitis. Patient has a hx significant for COPD, HTN, NIDDM, Hyperlipedemia, and was a smoker. Patient's H&P, labs, allergies, and other pertinent information were reviewed prior to the consult. Patient did state that the problem with the legs has been worsening for the last 3 weeks, and developed lethargy and a fever Thursday night and was brought to the ED here. Patient is very pleasant and is very willing to have the consult performed. - Wound Right Anterior Tib/Fib(lower leg) Wound Type: Statis Ulcer Wound General Appearance: Reddened, Draining, Bleeding, Unapproximated Wound Bed Greatest Portion: Red (Granulation) Wound Bed Lesser Portion: Pale [place] Base Wound Surrounding Tissue Appearance: Dark Red Percent of Wound Bed Granulated/Red: 80 Wound Length: 6.5 cm Wound Width: 6 cm Wound Depth: 0.1 cm Wound Drainage Amount: Moderate Wound Drainage Odor: Strong, Pungent Wound Drainage Description: Bloody (wound ), Brown (As wound was debrided, the exudate became bloody) Wound Debridement Amount of Tissue Removed: Large Left Foot Wound Type: Statis Ulcer Wound General Appearance: Reddened, Draining, Unapproximated Wound Bed Greatest Portion: Pale [place] Wound Bed Lesser Portion: Red (Granulation) Wound Surrounding Tissue Appearance: Dark Red Percent of Wound Bed Granulated/Red: 40 Wound Length: 4.8 cm Wound Width: 5 cm Wound Depth: 0.1 cm (less than) Wound Drainage Amount: Moderate Wound Drainage Odor: Strong Wound Drainage Description: Brown Wound Topical Solution/Irrigant: Antibiotic Irrigant Wound Debridement Method: Gauze, Mechanical Wound Debridement Result: Healthy Tissue Revealed Wound Debridement Amount of Tissue Removed: Large - Circulation, Sensation, Motion Edema Degree: 3+ (right foot 2+. Left foot 3+) Peripheral Pulse Strength: Weak (Doppler used to find both dorsalis pedis pulse, areas marked with marker.) Capillary Refill: Less than 3 seconds Sensation Description: Burning (compares pain to a sunburn) Skin Temperature: Warm Skin Color: Normal (both legs dark red from the knee down. Area on left leg outlined to monitor success of treatment) - Pain Pain Scale Used: Visual Analog Scale 0-10 (Pain only on right foot with debridement) Pain Description: Burning Pain Duration/Frequency: Occasional The problem with patient's legs developed this past October, and has worsened over the last 3 week. Infection started while patient was having legs treated with Unna boots as an outpatient. Significant amount of skin was removed with debridement. Healthy skin was revealed with cleaning. Wound on right barone bled with debridement, good blood flow is noted to the wound bed. - Treatment/Dressing Change Topicals/Ointments: None Cleanse With: Anasept, Debrisoft Dressing Types: Kerlix (Gauze Roll), Opti-Lock (Reggie wrap for compression) Dressing Comment: recomend patient see podiatry as an outpatient - Recomendation Recomendation:: Right Barone. Clean wound with Anasept spray and Debrisoft. Pat Dry. Cover with Optiloc. Secure with Kerlix. Reggie wraps to the Knee for compression. Change daily or PRN. Left Foot. Clean wound with Anasept spray, and Debrisoft. Pat dry. Cover with Optiloc. Secure with Kerlix. Apply Reggie wrap distal to the knee for compression. Change daily or PRN Physcian/Nurse Practioner Notified: Yes (Dr. Garcia) Treatment Time - Time Total Time Spent with Patient: 1 hour - Patient Will be Seen Weekly Treatment: daily - For: For:: 1 week
[2020-07-02] VITALS (26 sets, daily range): BP systolic 110–133; BP diastolic 63–73; PULSE 75–131; RESP 16–26; TEMP 36.1–36.4; O2SAT 96–98
[2020-07-02] MEDS: VANCOMYCIN/WATER (PEG) 1.25 GM/250 ML BAG IV (00:30)
[2020-07-02] MEDS: PIPERACILLIN/TAZO 4.5 GM in Normal Saline 100 ML IVPB ×2 (02:03→09:57)
[2020-07-02 06:39] LABS: Abs Immature Grans 0.15 10^3/uL (0.0-0.06); Absolute Basophil Count 0.03 10^3/uL (0.0-0.2); Absolute Eosinophil Count 0.05 10^3/uL (0.0-0.7); Absolute Neutrophil Count 14.01 10^3/uL (1.2-6.7); Basophils % 0.2; Eosinophils % 0.3; HCT 30.8 % (40.0-50.0); HGB 9.7 g/dL (13.5-17.5); Immature Grans % 0.9; Lymphocytes % 6.7; MCH 28.5 pg (27.0-33.0); MCHC 31.5 % (32.0-36.0); MCV 90.6 fL (80-95); MPV 8.9 fL (8.0-11.0); Monocytes % 6.7; Neutrophils % 85.2; Nucleated RBC 0 %; Platelet Count 289 10^3/uL (130-400); RDW-SD 46.7 fL; WBC 16.44 10^3/uL (4.4-10.8)
[2020-07-02 06:51] LABS: BUN 24 mg/dL (7-18); C-Reactive Protein 18.23 mg/dL (0.0-0.3); CREATININE 1.5 mg/dL (0.70-1.30); Calcium 8.8 mg/dL (8.5-10.1); Chloride 103 mmol/L (98-107); Estimated GFR 46.54 (mL/min/1.73m2); Glucose 95 mg/dL (74-106); Magnesium 2.3 mg/dL (1.8-2.4); Potassium 4.6 mmol/L (3.5-5.1); Sodium 137 mmol/L (136-145)
[2020-07-02] MEDS: Aspirin E.C. 81 MG TABEC PO (07:59)
[2020-07-02] MEDS: Atorvastatin 10 MG TAB PO (07:59)
[2020-07-02] MEDS: Pantoprazole 40 MG TABCR PO (08:00)
--- NOTE | 2020-07-02 08:00 | DI.US_ITS ---
APPROVED REPORT EXAM: Comprehensive 2D, Doppler, and color-flow Echocardiogram Patient Location: In-Patient Room/Bed: [id number] Inspector Rag Sorting: Daria Ruiz RDCS (AE) Indications: Suspected A Fib Other Information Study Quality: Fair. Technically limited study due to body habitus, inability to position patient. Conclusion Technically difficult study Mild concentric left ventricular hypertrophy. Estimated ejection fraction is 55% Right ventricle is probably normal in size Both atria are normal in size Sclerotic aortic valve without stenosis or regurgitation Mild mitral annular calcification. Trace to mild mitral regurgitation Normal tricuspid valve with trace regurgitation. Normal estimated right ventricular systolic pressur e Pulmonic valve was not well visualized Wall motion Left Ventricle The left ventricle is normal size. The left ventricular systolic function is normal. The left ventric ular ejection fraction is within the normal range. Mild concentric left ventricular hypertrophy. Segm ental wall motion could not be accurately assessed There is no ventricular septal defect visualized. LVEF is 55%. Right Ventricle Right ventricle appears grossly normal in size Right ventricular systolic function could not be asses sed. The RVSP is 31.3mmHg. Atria The left atrium size is normal. The right atrium size is normal. The interatrial septum is intact wit h no evidence for an atrial septal defect. Aortic Valve Aortic valve is calcified. Aortic valve is probably trileaflet. There is no aortic valvular stenosis. No aortic regurgitation is present. Mitral Valve Mild mitral annular calcification. No evidence of mitral valve stenosis. Trace to mild mitral regurgi tation. Tricuspid Valve The tricuspid valve is normal in structure. There is no tricuspid valve stenosis. Trace tricuspid reg urgitation. Pulmonic Valve Pulmonic valve is not well visualized. There is no pulmonic valvular stenosis. There is no pulmonic v alvular regurgitation. Great Vessels The aortic root is normal in size. Ascending aorta is not well visualized. Aortic arch is not well vi sualized. The IVC collapses <50% with inspiration. Pericardium There is no pericardial effusion. 2D Dimensions IVSD d PLAX 1.30 cm M: 0.6-1.2 LV Vol A2C d MOD 118.4 mL LVPW d PLAX 1.35 cm M: 0.6 - 1.2 LV Vol A4C d MOD 110.7 mL LVID d PLAX 4.70 cm M: 4.2 - 5.8 LA vol/ BSA A4C s A-L 17.7 mL/m2 LVDs 3.45 cm M: 2.5 - 4.0 LA Area A4C s MOD 15.24 cm2 Ao Root d 3.02 cm M: 3.1 - 3.7 LV EF A4C MOD 49.1 % RA Area A4C 13.10 cm2 LV EF A2C MOD 47.0 % RA Vol/ BSA A4C s A-L 14.4 mL/m2 LV EF Biplane MOD 45.6 % LV EF Teichholz 51.8 % SV 52.17 mL LVEF (Anthony's) 45.59 % M: 52 - 72 SV Index 23.37 mL/m2 LV Volume 82.86 mL M: 62 - 150 LV Volume Index 37.15 mL/m2 M: 34 - 74 LV Vol Biplane MOD 114.4 mL FS 26.40 % M-Mode TAPSE 2.44 cm (M/F) >1.7 LV Diastology MV E' medial 0.080 (>0.07 m/s) E/A Ratio 1.2 LV E/e MED 12.60 (<14) MV E Vmax 1.01 (0.4-1.3 m/s) MV E' lateral 0.101 (>0.1 m/s) MV A Vmax 0.85 (0.4-1.3 m/s) LV E/e LAT 10.05 (<14) MV E/A Ratio 1.18 MV E/E' medial 12.64 MV E/E' lateral 10.06 Aortic Valve LVOT Area 3.25 cm2 AoV Area Vmax 1.71 cm2 LVOT Vmax 0.85 m/s AoV Area/ BSA (Vmax) 0.76 cm2/m2 LVOT Mean Mike. 0.57 m/s CORA Mean Mike. 1.54 cm2 LVOT Peak Grad 2.9 mmHg CORA Mean Mike. Index 0.69 cm2/m2 LVOT Mean Grad 1.5 mmHg LVOT VTI 0.142 m LVOT Diam s 2.00 cm AoV Vmax 1.62 m/s Velocity Ratio 0.52 AoV Mean Mike. 1.21 m/s AoV Peak Grad 10.5 mmHg LVOT SV 46.21 mL AoV Mean Grad 6.5 mmHg AoV VTI 0.280 m AoV Area VTI 1.65 cm2 AoV Area/ BSA (VTI) 0.74 cm/m2 Mitral Valve MV DT 182 (160-240 msec) MV PHT 53 msec MV Area PHT 4.16 cm2 MV VTI 0.325 m MV VTI Annulus 0.321 m MV Area VTI 1.40 (4.0-6.0 cm2) Pulmonary Valve PV Vmax 0.92 (0.5-1.5 m/s) RVOT Peak Gr. 1.66 mmHg PV Peak Grad 3.4 mmHg RVOT Mean Gr. 0.80 mmHg PV Mean Grad 2.0 mmHg RVOT VTI 0.108 m PV VTI 0.168 m RVOT Vmax 0.64 m/s Tricuspid Valve TR Peak Grad 23.2 mmHg TR Vmax 2.41 m/s RA Pressure 8.00 mmHg RVSP (TR) 31.3 mmHg
[2020-07-02] MEDS: Insulin NPH-Human 300 UNITS/3 ML PEN 20 UNIT SC (09:12)
--- NOTE | 2020-07-02 09:39 | PDOC.CMPRO ---
Care Management Progress Note S/O: Demetrio remains in the ICU on M/S status at this time, he was sleeping when CM attempted to meet with him. RN reported no needs at this time. CM continues to follow. A: Sepsis due to Cellulitis of BLE's P: Anticipate Mejia will be discharged home with no services when medically cleared by provider, unless there is a need for IV antibiotics in which case he may require new Home Health nursing services. He will follow up with his PCP and discharge plan of care as directed. Family will drive him home via private vehicle when ready. CM will continue to follow.
[2020-07-02 10:03] LABS: Troponin I 0.11 ng/mL (<0.06)
--- NOTE | 2020-07-02 11:00 | PGE_ITS ---
Date of Service Date of service: 07/02/20 Time of Service: 11:00 Assessment and Plan Assessment and plan (1) Sepsis due to cellulitis: Status: Acute Assessment and plan: DC vancomycin and Zosyn and switched to penicillin G 4,000,000 units IV every 4 hours. Get repeat blood cultures in the morning. No prior need for weeks worth of antibiotics although once the bacteremia is cleared we could probably switch him to oral antibiotics. No evidence of vegetations on his echocardiogram. Patient remains hemodynamically stable and can be transferred to the medical/surgical floor with discontinuation of his telemetry. (2) NSTEMI (non-ST elevated myocardial infarction): Status: Acute Assessment and plan: Type II demand ischemic event with stable troponin levels. Latest troponin is down to 0.11. Echocardiogram showed no LV wall motion abnormalities and RV also appeared to be normal. Continue aspirin and statins and consider addition of low-dose beta-tio given his history of hypertension and LVH. (3) Paroxysmal atrial fibrillation with rapid ventricular response: Status: Suspected Assessment and plan: Rhythm is remained sinus rhythm to sinus tachycardia although the tachycardia has improved remarkably. Overnight no SVT or PAF was seen. At this point I will add low-dose Lopressor to his antihypertensive regimen. (4) Acute kidney injury superimposed on chronic kidney disease: Status: Acute Assessment and plan: BUN and creatinine are virtually unchanged at 24 and 1.5. Patient seems to be eating and drinking well. I am going to withhold giving any IV fluids at this point due to his chronic leg edema. I will continue to withhold his furosemide. (5) Type 2 diabetes mellitus: Status: Chronic Assessment and plan: Basal and bolus insulin per sliding scale. We will use NPH for now and try to give this at the same time as his prednisone.. Qualifiers: Diabetes mellitus technician terminal and repeater insulin use: without correction use Diabetes mellitus complication status: with hyperglycemia Qualified Code(s): E11.65 - Type 2 diabetes mellitus with hyperglycemia (6) Hypothyroidism: Status: Ruled-out Assessment and plan: TSH level came back normal Qualifiers: Hypothyroidism type: acquired Qualified Code(s): E03.9 - Hypothyroidism, unspecified (7) Pulmonary hypertension: Status: Ruled-out Assessment and plan: No evidence for pulmonary hypertension based on his echocardiogram. RV size and function was normal. His chronic leg edema is probably due to venous insufficiency rather than right heart failure (8) COPD (chronic obstructive pulmonary disease) with emphysema: Status: Chronic Assessment and plan: Based on symptoms and my exam yesterday did not feel he had an acute exacerbation of COPD. Nevertheless since I stopped his steroids and changed his aerosol treatments to as needed he has had some increased wheezing. Apparently he is not on any maintenance medications for his COPD while I do not feel that his acute problems leading to his hospitalization were secondary to an exacerbation of his COPD nevertheless he has having some bronchospastic problems. I will start him on some Symbicort maintenance and put him on short course of prednisone 40 mg daily for 5 days. He can still use the duo nebs on a as needed basis Qualifiers: Emphysema type: unspecified Qualified Code(s): J43.9 - Emphysema, unspecified (9) DVT prophylaxis: Status: Acute Assessment and plan: Enoxaparin No TEDs/SCDs until results of US of BLEs are known. (10) Discharge planning issues: Status: Acute Assessment and plan: Full code Patient was made an ICU admission this morning due to his elevated troponin and tachycardia and presentation and a septic picture. However he has now hemodynamically stable and can be transferred to the medical/surgical bed Subjective Subjective Interval history since last seen: Patient overall is feeling better. No fever or chills. Legs are still swollen and erythematous. Wound care nurse has cleaned the skin of the dried crusted skin and dressed his legs. His blood cultures are positive 1/2 sets for Strep species, final identification and sensitiviites are pending. He is on Zosyn and Vancomycin which can be down graded to PCN G 4 million units iv q4hr. Echo was done and showed mild concentric LVH with normal left ventricular ejection fraction 55%. RV probably normal size. Atria are no rmal size. Aortic valve is sclerotic but without stenosis or regurgitation. He has mild MAC with trace to mild mitral vegetation. Normal tricuspid valve with trace of regurgitation and normal RVSP. No vegetations were seen. Exam Narrative Exam Narrative: Older white male alert and oriented person place time circumstance ambulated out of the ICU and around the nursing unit with physical therapy. He worked on stairs and did fairly well. He did have to stop a couple times due to dyspnea. Lungs with diffuse expiratory wheezes Heart regular rate and rhythm Abdomen is obese soft nontender Lower extremities edematous and currently have Reggie wraps. The margin of erythema on the left leg was marked just below the kneecap and appears that the erythema is receding. I did not unwrap his Reggie wraps today but will look at them the next time the wound care nurse changes his dressings. Objective Last Vital Signs Temp 36.4 C L 07/02/20 08:01 Pulse 90 07/02/20 08:01 Resp 23 07/02/20 08:01 BP 133/63 07/02/20 08:01 Pulse Ox 98 07/02/20 09:18 Laboratory Results - last 24 hr 07/02/20 07/02/20 06:17 06:17 WBC 16.44 H D RBC 3.40 L Hgb 9.7 L Hct 30.8 L MCV 90.6 MCH 28.5 MCHC 31.5 L RDW 14.0 Plt Count 289 MPV 8.9 Immature Gran % 0.9 Neutrophils % 85.2 Lymphocytes % 6.7 Monocytes % 6.7 Eosinophils % 0.3 Basophils % 0.2 Nucleated RBC % 0 Absolute Neutrophils 14.01 H Absolute Lymphocytes 1.10 L Absolute Monocytes 1.10 H Absolute Eosinophils 0.05 Absolute Basophils 0.03 Sodium 137 Potassium 4.6 Chloride 103 Carbon Dioxide 28.0 Anion Gap 6.0 BUN 24 H Creatinine 1.5 H Estimated GFR/1.73 m2 46.54 Glucose 95 Calcium 8.8 Magnesium 2.3 Troponin I 0.11 H* C-Reactive Protein 18.23 H
[2020-07-02] MEDS: predniSONE 20 MG TAB 40 MG PO (11:50)
[2020-07-02] MEDS: Budesonide/Formoterol 160/4.5 6 GM 60 PUFF INH IH ×2 (11:56→20:13)
--- NOTE | 2020-07-02 16:10 | PT.INTREAT ---
Date of service: 07/02/20 Time of Service: 10:35 PT Notes Visit Reasons: SEPSIS DUE TO CELLULITIS OF BLE'S Inpatient Physical Therapy Treatment Note [facility] Date: 07/02/2020 PRECAUTIONS: Fall SUBJECTIVE: Demetrio is pleasant and agreeable to participating in PT. He reports that he does not participate in much physical activity at baseline, as he needs to go slow due to his COPD. OBJECTIVE: PAIN: No c/o pain BED MOBILITY/TRANSFERS Supine-sit: I Sit-stand: I Stand-sit: I Bed-Chair: I Chair-bed: I GAIT Assistive Device: No AD Weight bearing: Full Assist: SBA Distance: 50' + 250' in a.m.; 50' + 350' in p.m. Deviation: Seated rest x1, standing rest x2, SOB (a.m. > p.m.) in both a.m. and p.m. THEREX: Patient was instructed in a LE strengthening program, completed in a seated and standing position, as per flow sheet. STAIRS: Up/down 15x4 and 10x6 using B rails and a step-to pattern with supervision. TOILETING: Patient toileted independently in both a.m. and p.m. ASSESSMENT: Patient tolerated session with c/o SOB with gait training requiring seated and standing rests to recover. He was able to tolerate a progression in gait distance without use of assistive device and with SBA, as well as stair training. PLAN: Continue with gait training without assistive device and add global strengthening for improved mobility. TREATMENT CODE/TIME: Session 1: 25 minutes; [id number] x2 (10:35) Session 2: 25 minutes; [id number], [id number] (14:05)
[2020-07-02] MEDS: Insulin Aspart 300 UNITS/3 ML PEN SC ×2 (17:01→22:11)
[2020-07-02] MEDS: Enoxaparin 40 MG/0.4 ML SYR SC (20:14)
[2020-07-02] MEDS: Metoprolol 12.5 MG TAB PO (20:15)
[2020-07-02] MEDS: Normal Saline Flush 10 ML SYR IVP (20:16)
[2020-07-03] VITALS (13 sets, daily range): BP systolic 122–149; BP diastolic 72–83; PULSE 70–82; RESP 1–24; TEMP 36.2–36.7; O2SAT 94–98
[2020-07-03] MEDS: Ipratropium 0.5 MG/2.5 ML UPD VIAL 0.25 MG UPD (05:45)
[2020-07-03 07:12] LABS: Absolute Basophil Count 0.02 10^3/uL (0.0-0.2); Absolute Eosinophil Count 0.02 10^3/uL (0.0-0.7); Absolute Lymphocyte Count 1.74 10^3/uL (1.2-3.4); Absolute Monocyte Count 0.59 10^3/uL (0.1-0.8); Absolute Neutrophil Count 9.22 10^3/uL (1.2-6.7); Basophils % 0.2; Eosinophils % 0.2; HCT 29.6 % (40.0-50.0); HGB 9.4 g/dL (13.5-17.5); Immature Grans % 0.9; Lymphocytes % 14.9; MCH 28.8 pg (27.0-33.0); MCHC 31.8 % (32.0-36.0); MCV 90.8 fL (80-95); MPV 9.1 fL (8.0-11.0); Neutrophils % 78.8; Nucleated RBC 0 %; Platelet Count 362 10^3/uL (130-400); RBC 3.26 10^6/uL (4.36-5.78); RDW 13.3 % (11.8-14.1); RDW-SD 44.3 fL
[2020-07-03 07:24] LABS: Anion Gap 8.2 mmol/L (3-11); BUN 29 mg/dL (7-18); C-Reactive Protein 9.75 mg/dL (0.0-0.3); CO2 27.8 mmol/L (21.0-32.0); CREATININE 1.4 mg/dL (0.70-1.30); Chloride 101 mmol/L (98-107); Glucose 144 mg/dL (74-106); Potassium 4.3 mmol/L (3.5-5.1); Sodium 137 mmol/L (136-145)
[2020-07-03] MEDS: Metoprolol 12.5 MG TAB PO ×2 (07:55→19:16)
[2020-07-03] MEDS: Pantoprazole 40 MG TABCR PO (07:56)
[2020-07-03] MEDS: predniSONE 20 MG TAB 40 MG PO (07:56)
[2020-07-03] MEDS: Aspirin E.C. 81 MG TABEC PO (07:56)
[2020-07-03] MEDS: Atorvastatin 10 MG TAB PO (07:56)
[2020-07-03] MEDS: Insulin NPH-Human 300 UNITS/3 ML PEN 20 UNIT SC (08:01)
[2020-07-03] MEDS: Budesonide/Formoterol 160/4.5 6 GM 60 PUFF INH IH ×2 (08:01→19:20)
[2020-07-03 09:53] LABS: Vancomycin, Trough 4.6 ug/mL (10.0-20.0)
--- NOTE | 2020-07-03 11:03 | CMPROGNOTE_ITS ---
Care Management Progress Note S/O: Demetrio continues to be monitored and treated. Per MD, IV course has yet to be determined; though he anticipates at least a few more days of IV ABX at this time. Demetrio continues to be followed by wound care, diabetic education and physical therapy with recommendations for home health PT upon discharge. CM continues to follow. A: Sepsis due to Cellulitis of BLE's P: Mejia will be discharged home when medically cleared, antibiotic course unclear at this time. Anticipate new [facility] RN/PT orders upon discharge. Family wi ll drive him home via private vehicle when ready. CM continues to follow.
--- NOTE | 2020-07-03 11:17 | W.INDIABCONS ---
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 PMH: Dm2, COPD, HTN, HLD, obesity with BMI of 35. Following diabetic/low sodium diet with adequate intake to meet macro and micronutrients/fluid. Most recent A1C (07/01/20) 6.4% indicating excellent glycemic control with current Dm meds (glipizide 5 mg, metformin 500 mg BID). Allergy to shellfish noted. Diabetes inpatient education not needed at this time in view of excellent glycemic control in last 3 months and meeting nutrient and fluid needs for optimal healing. PLAN: Will continue to follow po intake, labs and weight. Time Spent in Nutritional Counseling and Treatment: 0
[2020-07-03] MEDS: Acetaminophen 325 MG TAB 650 MG PO ×3 (12:11→22:29)
[2020-07-03] MEDS: Insulin Aspart 300 UNITS/3 ML PEN SC ×3 (12:13→22:29)
--- NOTE | 2020-07-03 13:07 | W.PM.PROGNOT ---
Date of Service Date of service: 07/03/20 Time of Service: 13:07 Assessment and Plan Assessment and plan (1) Streptococcal infection group G: Status: Acute Assessment and plan: blood culture is + for Strep dysgalactiae, patient is currently on PCN G 4 million units q4h and he is responding to treatment. repeat blood cultures today to assess clearance of bacteremia. Source is likely his chronic leg edema and stasis skin changes. (2) Sepsis due to cellulitis: Status: Acute Assessment and plan: Septic condition has improved. Blood cultures were + for Gp G Strep in 1/2 sets of cultures. Repeat blood cultures taken this a.m. Once his bacteremia has cleared then we can decide on how long and which antibiotics to treat him with. (3) NSTEMI (non-ST elevated myocardial infarction): Status: Acute Assessment and plan: type 2 demand ischemia. Normal LV function per echo. cont. ASA, statin, BB (4) Acute kidney injury superimposed on chronic kidney disease: Status: Acute Assessment and plan: stable creatinine of 1.4 and BUN 29. will resume his home dose of lasix for his leg edema. (5) Type 2 diabetes mellitus: Status: Chronic Assessment and plan: Basal and bolus insulin per sliding scale. We will use NPH for now and try to give this at the same time as his prednisone. glucose is stable in 130's to 160's today Qualifiers: Diabetes mellitus complication status: with hyperglycemia Diabetes mellitus business intelligence architect insulin use: without senior care use Qualified Code(s): E11.65 - Type 2 diabetes mellitus with hyperglycemia (6) Pulmonary hypertension: Status: Ruled-out Assessment and plan: No evidence for pulmonary hypertension based on his echocardiogram. RV size and function was normal. His chronic leg edema is probably due to venous insufficiency rather than right heart failure (7) COPD (chronic obstructive pulmonary disease) with emphysema: Status: Chronic Assessment and plan: Based on symptoms and my exam yesterday did not feel he had an acute exacerbation of COPD. Nevertheless since I stopped his steroids and changed his aerosol treatments to as needed he has had some increased wheezing. Apparently he is not on any maintenance medications for his COPD while I do not feel that his acute problems leading to his hospitalization were secondary to an exacerbation of his COPD nevertheless he has having some bronchospastic problems. I will start him on some Symbicort maintenance and put him on short course of prednisone 40 mg daily for 5 days. He can still use the duo nebs on a as needed basis Qualifiers: Emphysema type: unspecified Qualified Code(s): J43.9 - Emphysema, unspecified (8) DVT prophylaxis: Status: Acute Assessment and plan: Enoxaparin No TEDs/SCDs until results of US of BLEs are known. (9) Discharge planning issues: Status: Acute Assessment and plan: Full code Patient was made an ICU admission this morning due to his elevated troponin and tachycardia and presentation and a septic picture. However he has now hemodynamically stable and can be transferred to the medical/surgical bed Subjective Subjective Interval history since last seen: Patient states that he did not sleep well last night and feels tired but otherwise ok. Swelling and redness in his legs is improving. He remains afebrile. Exam Narrative Exam Narrative: Obese white male, sitting up in his chair after lunch, falling asleep in his chair. He was placed back to bed by nursing so I could examine his legs. Dressing was taken down. Legs are improving. no longer weeping fluid and erythema is improving (not the intense redness but more a salmon colored w/ some crusted skin, right pretibial ulcer is no longer draining. Pedal pulse are intact. Calf/pretibial edema has improved. Objective Last Vital Signs Temp 36.6 C 07/03/20 09:30 Pulse 73 07/03/20 08:09 Resp 20 07/03/20 06:15 BP 122/77 07/03/20 08:09 Pulse Ox 98 07/03/20 08:09 Laboratory Results - last 24 hr 07/03/20 07/03/20 07/03/20 06:26 06:26 09:25 WBC 11.70 H RBC 3.26 L Hgb 9.4 L Hct 29.6 L MCV 90.8 MCH 28.8 MCHC 31.8 L RDW 13.3 Plt Count 362 MPV 9.1 Immature Gran % 0.9 Neutrophils % 78.8 Lymphocytes % 14.9 Monocytes % 5.0 Eosinophils % 0.2 Basophils % 0.2 Nucleated RBC % 0 Absolute Neutrophils 9.22 H Absolute Lymphocytes 1.74 Absolute Monocytes 0.59 Absolute Eosinophils 0.02 Absolute Basophils 0.02 Sodium 137 Potassium 4.3 Chloride 101 Carbon Dioxide 27.8 Anion Gap 8.2 BUN 29 H Creatinine 1.4 H Estimated GFR/1.73 m2 50.40 Glucose 144 H Calcium 9.0 C-Reactive Protein 9.75 H Vancomycin Trough 4.6 L
--- NOTE | 2020-07-03 15:24 | PT.INTREAT ---
Date of service: 07/03/20 Time of Service: 11:20 PT Notes Visit Reasons: SEPSIS DUE TO CELLULITIS OF BLE'S Inpatient Physical Therapy Treatment [facility] Date: 07/03/2020 PRECAUTIONS: Fall SUBJECTIVE: Mejia is agreeable to participating in PT, although states that he has been having intermittent shooting pain in his feet today, which he attributes to the healing process. He feels that this will limit his ability to participate in PT today. OBJECTIVE: PAIN: Patient c/o intermittent shooting pain in B feet with gait training and ther ex. BED MOBILITY/TRANSFERS Supine-sit: I Sit-stand: I Stand-sit: I Bed-Chair: I Chair-bed: I GAIT Assistive Device: No AD Weight bearing: Full Assist: SBA Distance: 200' Deviation: Standing rest x1 due to pain THEREX: Patient was instructed in a LE strengthening program, completed in a standing position, as per flow sheet. ASSESSMENT: Patient tolerated session with c/o shooting pain in B feet with gait training and ther ex completion. This appears to have limited his ability to participate in PT today. PLAN: Continue with gait training without assistive device and add global strengthening for improved mobility and activity tolerance. TREATMENT CODE/TIME: Session 1: 15 minutes; [id number] (11:20) Session 2: 10 minutes; [id number] (15:05)
[2020-07-03] MEDS: Enoxaparin 40 MG/0.4 ML SYR SC (19:15)
[2020-07-03] MEDS: Normal Saline Flush 10 ML SYR IVP ×2 (19:43→23:56)
[2020-07-04] MEDS: Acetaminophen 325 MG TAB 650 MG PO ×4 (02:36→19:37)
[2020-07-04 03:20] VITALS: BP 152/77; PULSE 68; RESP 18; TEMP 36.4; O2SAT 97
[2020-07-04] MEDS: Normal Saline Flush 10 ML SYR IVP ×4 (04:40→19:39)
[2020-07-04 07:20] VITALS: BP 154/86; PULSE 69; RESP 19; TEMP 36.4; O2SAT 97
[2020-07-04] MEDS: Insulin NPH-Human 300 UNITS/3 ML PEN 20 UNIT SC (07:55)
[2020-07-04] MEDS: Atorvastatin 10 MG TAB PO (07:56)
[2020-07-04] MEDS: Aspirin E.C. 81 MG TABEC PO (07:56)
[2020-07-04] MEDS: Metoprolol 12.5 MG TAB PO ×2 (07:56→19:38)
[2020-07-04] MEDS: Pantoprazole 40 MG TABCR PO (07:56)
[2020-07-04] MEDS: predniSONE 20 MG TAB 40 MG PO (07:56)
[2020-07-04] MEDS: Budesonide/Formoterol 160/4.5 6 GM 60 PUFF INH IH ×2 (08:16→19:38)
--- NOTE | 2020-07-04 09:34 | CMPROGNOTE_ITS ---
Care Management Progress Note S/O: Demetrio continues to be monitored and treated, per MD, four more days of IV abx are anticipated at this time. Mejia will transition to oral penicillin prior to discharge and remain on abx treatment for four weeks; with continued improvement. Mejia was sitting up in his chair when CM met with him. 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 He reviewed his route and Demetrio continues to be followed by wound care, diabetic education and physical therapy with recommendations for home health RN for wound care anticipated upon discharge. CM requested Podiatry consult from MD as well. CM continues to follow. A: Sepsis due to Cellulitis of BLE's P: Mejia will be discharged home when medically cleared, with an extended course of oral antibiotics. Anticipate new [facility] home care chaplain orders upon discharge. Family will drive him home via private vehicle when ready. CM continues to follow.
--- NOTE | 2020-07-04 10:20 | PTTR_ITS ---
Date of service: 07/04/20 Time of Service: 09:40 PT Notes Visit Reasons: SEPSIS DUE TO CELLULITIS OF BLE'S Inpatient Physical Therapy Treatment Note [facility] Date: 07/04/2020 PRECAUTIONS: B foot pain SUBJECTIVE: Mejia is pleasant and agreeable to participating in PT. He states that he continues to have intermittent shooting pain in B feet. He reports that he has been independent with transfers and ambulation within his room, and he feels safe. OBJECTIVE: Following a discussion with nursing, patient, and PT, patient has been cleared to be independent with hallway ambulation. PAIN: Patient c/o intermittent shooting pain in B feet with gait training and ther ex. BED MOBILITY/TRANSFERS Supine-sit: I Sit-stand: I Stand-sit: I Bed-Chair: I Chair-bed: I GAIT Assistive Device: No AD Weight bearing: Full Assist: I Distance: 400' Deviation: Standing rest x1 due to pain THEREX: Patient was instructed in an UE and LE strengthening program, completed in a standing position, as per flow sheet. ASSESSMENT: Patient tolerated session with c/o shooting pain in B feet with gait training and ther ex completion, although it did not appear to limit his ability to participate in PT today. He was able to tolerate a progression in his ther ex program, tolerating increased reps with all exercises. PLAN: Patient is cleared to be independent with transfers and ambulation within his room and in the hallway. Will continue with ther ex progression for im proved activity tolerance. TREATMENT CODE/TIME: 25 minutes; [id number], [id number] (09:40)
--- NOTE | 2020-07-04 11:00 | W.PM.PROGNOT ---
Date of Service Date of service: 07/04/20 Time of Service: 11:01 Assessment and Plan Assessment and plan (1) Streptococcal infection group G: Status: Acute Assessment and plan: Positive blood cultures from admission on June 30, 2020 demonstrating Streptococcus dysgalactiae which is group G strep. Repeat blood cultures from July 03, 2020 showed no growth. Continue high-dose penicillin G 4,000,000 units IV every 4 hours through July 06, 2020 which would be 7 days of IV antibiotics. At that point I think he could go home another 2 weeks of oral antibiotics and have follow-up vascular studies on his legs. (2) Sepsis due to cellulitis: Status: Resolved Assessment and plan: Sepsis has resolved. (3) NSTEMI (non-ST elevated myocardial infarction): Status: Acute Assessment and plan: type 2 demand ischemia. Normal LV function per echo. cont. ASA, statin, BB. can obtain outpatient stress MPI (4) Acute kidney injury superimposed on chronic kidney disease: Status: Acute Assessment and plan: stable creatinine of 1.4 and BUN 29. will resume his home dose of lasix for his leg edema. (5) Type 2 diabetes mellitus: Status: Chronic Assessment and plan: Basal and bolus insulin per sliding scale. BG improving. 169 at HS last night, 104 this a.m. I will reduce his NPH dose Qualifiers: Diabetes mellitus prison insulin use: without termite renewal inspector use Diabetes mellitus complication status: with hyperglycemia Qualified Code(s): E11.65 - Type 2 diabetes mellitus with hyperglycemia (6) Pulmonary hypertension: Status: Ruled-out Assessment and plan: No evidence for pulmonary hypertension based on his echocardiogram. RV size and function was normal. His chronic leg edema is probably due to venous insufficiency rather than right heart failure (7) COPD (chronic obstructive pulmonary disease) with emphysema: Status: Chronic Assessment and plan: I initially did not feel that he had an acute exacerbation of his COPD; after stopping steroids and scheduled nebs he had more wheezing. He is not coughing any purulent sputum. Since putting him back on prednisone and nebs and adding Symbicort his wheezing has improved and his dyspnea has improved. I think that he just did not have good treatment of his COPD (he was not on any home bronchodilators or inhaled corticosteroids) Qualifiers: Emphysema type: unspecified Qualified Code(s): J43.9 - Emphysema, unspecified (8) DVT prophylaxis: Status: Acute Assessment and plan: Enoxaparin No TEDs/SCDs until results of US of BLEs are known. (9) Discharge planning issues: Status: Acute Assessment and plan: Full code cont. P.T., probably could benefit from home health services for his chronic leg edema and skin ulcerations and benefit from home P.T. I think that he could be changed to oral antibiotics soon i.e. in the next 1 to 2 days then dc home w/ 2 more weeks of antibiotics. Subjective Subjective Interval history since last seen: Mr. Artis is doing much better. Leg pain is improved. Legs are no longer weeping. His nurse Davi redressed his legs this morning after cleaning them up and show them to me. He has chronic venous stasis skin discoloration but the dry flaking skin is improving. The right pretibial ulcer has good granulation tissue and appears to be superficial. There is palpable albeit weak pedal pulses. Patient remains afebrile. Blood cultures grew group G strep for which she is now on high-dose penicillin G at 4,000,000 units IV every 4 hours. Today is day #3 of pen G. Prior to that he was treated with ceftriaxone and vancomycin on admission on June 30 and then switched to vancomycin and Zosyn until July 02 when the penicillin G was started. White cell count is down to 11,700 as of yesterday. Repeat CBC was not done today. CRP was down to 9.75 yesterday. Patient denies any chest pain or pressure and no dyspnea at rest. He has mild exertional dyspnea with activity which is his baseline. He is not coughing or wheezing today. He has no abdominal complaints. Last troponin was 2 days ago was down to 0.11. It was felt that he had a type II demand ischemic event from the sepsis. Echo imaging of his heart from July 02 showed normal left ventricular systolic function and normal right ventricular size and function. He does have mild concentric LVH. He has no significant valvular heart disease. His RVSP was normal. Plan will be to complete 7-day course of IV antibiotics then send him home on another 3 weeks of oral antibiotics and have him follow-up with outpatient wound care. He should have outpatient vascular studies assessing his arterial blood flow to his legs and feet. Exam Narrative Exam Narrative: Obese white male lying in bed. Dressing was taken down. Legs are improving. no longer weeping fluid and erythema is improving (not the intense redness but more a salmon colored w/ some crusted skin, right pretibial ulcer is no longer draining and has good granulation tissue at the base pedal pulse are intact. Calf/pretibial edema has improved. Lungs are clear to auscultation Heart regular rate and rhythm Abdomen is obese soft and nontender Objective Last Vital Signs Temp 36.4 C L 07/04/20 07:20 Pulse 69 07/04/20 07:20 Resp 19 07/04/20 07:20 BP 154/86 H 07/04/20 07:20 Pulse Ox 97 07/04/20 07:20
[2020-07-04] MEDS: Insulin Aspart 300 UNITS/3 ML PEN SC ×3 (11:58→21:36)
[2020-07-04 12:00] VITALS: BP 158/79; PULSE 74; RESP 19; TEMP 36.2; O2SAT 96
--- NOTE | 2020-07-04 14:25 | PT.INTREAT ---
Date of service: 07/04/20 Time of Service: 09:40 PT Notes Visit Reasons: SEPSIS DUE TO CELLULITIS OF BLE'S Inpatient Physical Therapy Treatment Note [facility] Date: 07/04/2020 PRECAUTIONS: B foot pain SUBJECTIVE: Mejia is pleasant and agreeable to participating in PT. He states that he continues to have intermittent shooting pain in B feet. He reports that he has been independent with transfers and ambulation within his room, and he feels safe. OBJECTIVE: Following a discussion with nursing, patient, and PT, patient has been cleared to be independent with hallway ambulation. PAIN: Patient c/o intermittent shooting pain in B feet with gait training and ther ex. BED MOBILITY/TRANSFERS Supine-sit: I Sit-stand: I Stand-sit: I Bed-Chair: I Chair-bed: I GAIT Assistive Device: No AD Weight bearing: Full Assist: I Distance: 400' Deviation: Standing rest x1 due to pain THEREX: Patient was instructed in an UE and LE strengthening program, completed in a standing position, as per flow sheet. ASSESSMENT: Patient tolerated session with c/o shooting pain in B feet with gait training and ther ex completion, although it did not appear to limit his ability to participate in PT today. He was able to tolerate a progression in his ther ex program, tolerating increased reps with all exercises. PLAN: Patient is cleared to be independent with transfers and ambulation within his room and in the hallway. Will continue with ther ex progression for improved activity tolerance. TREATMENT CODE/TIME: 25 minutes; 32376, 04013 (09:40)
--- NOTE | 2020-07-04 15:52 | CHAPLAIN ---
Demetrio said he was happy to be out of the ICU, as that means progress. He told me about his blood infection and treatment with penicillin. He said he is beginning to feel better. His has been in able to come in to visit. I explained my role and offered support.
[2020-07-04 16:06] VITALS: BP 175/92; PULSE 65; RESP 19; TEMP 36.1; O2SAT 96
[2020-07-04] MEDS: Enoxaparin 40 MG/0.4 ML SYR SC (19:38)
[2020-07-04 19:40] VITALS: BP 156/75; PULSE 77; RESP 17; TEMP 36.4; O2SAT 96
[2020-07-04 23:09] VITALS: BP 133/70; PULSE 63; RESP 18; TEMP 36.2; O2SAT 97
[2020-07-05] MEDS: Normal Saline Flush 10 ML SYR IVP ×2 (00:09→07:19)
[2020-07-05] MEDS: Acetaminophen 325 MG TAB 650 MG PO ×4 (00:11→23:30)
[2020-07-05 04:04] VITALS: BP 144/74; PULSE 68; RESP 17; TEMP 36; O2SAT 95
[2020-07-05] MEDS: Metoprolol 12.5 MG TAB PO ×2 (07:18→20:30)
[2020-07-05] MEDS: Pantoprazole 40 MG TABCR PO (07:18)
[2020-07-05 07:23] LABS: Abs Immature Grans 0.46 10^3/uL (0.0-0.06); HCT 35.5 % (40.0-50.0); HGB 11.5 g/dL (13.5-17.5); MCHC 32.4 % (32.0-36.0); MCV 89.6 fL (80-95); MPV 8.9 fL (8.0-11.0); Nucleated RBC 0 %; Platelet Count 401 10^3/uL (130-400); RBC 3.96 10^6/uL (4.36-5.78); RDW 13.1 % (11.8-14.1); RDW-SD 42.8 fL; WBC 14.16 10^3/uL (4.4-10.8)
[2020-07-05 07:32] LABS: Anion Gap 6.7 mmol/L (3-11); BUN 31 mg/dL (7-18); C-Reactive Protein 3.06 mg/dL (0.0-0.3); CO2 31.3 mmol/L (21.0-32.0); CREATININE 1.5 mg/dL (0.70-1.30); Calcium 9.5 mg/dL (8.5-10.1); Chloride 101 mmol/L (98-107); Estimated GFR 46.54 (mL/min/1.73m2); Glucose 97 mg/dL (74-106); Potassium 4.5 mmol/L (3.5-5.1); Sodium 139 mmol/L (136-145)
[2020-07-05 08:04] LABS: Absolute Neutrophil Count 6.94 10^3/uL (1.2-6.7); Bands % 2
[2020-07-05 08:05] LABS: Absolute Eosinophil Count 0.14 10^3/uL (0.0-0.7); Absolute Monocyte Count 1.27 10^3/uL (0.1-0.8); Procalcitonin 1.3 ng/mL
[2020-07-05 08:06] LABS: Absolute Lymphocyte Count 5.38 10^3/uL (1.2-3.4); Atypical Lymphocytes % 3; Diff Comment Manual Differential; Metamyelocytes % 1; Myelocytes % 2; RBC Morphology Normal
[2020-07-05] MEDS: Atorvastatin 10 MG TAB PO (08:19)
[2020-07-05] MEDS: Aspirin E.C. 81 MG TABEC PO (08:19)
[2020-07-05] MEDS: predniSONE 20 MG TAB 40 MG PO (08:19)
[2020-07-05] MEDS: Insulin NPH-Human 300 UNITS/3 ML PEN 15 UNIT SC (08:20)
[2020-07-05] MEDS: Budesonide/Formoterol 160/4.5 6 GM 60 PUFF INH IH ×2 (08:20→20:30)
[2020-07-05 09:09] VITALS: BP 150/87; PULSE 67; RESP 18; TEMP 36.7; O2SAT 97
--- NOTE | 2020-07-05 09:56 | PDOC.CMPRO ---
Care Management Progress Note S/O: Demetrio continues to be monitored and treated, per MD, three more days of IV abx are anticipated at this time. Mejia will transition to oral penicillin prior to discharge and remain on abx treatment for four weeks; with continued improvement. CM continues to follow. A: Sepsis due to Cellulitis of BLE's P: Mejia will be discharged home when medically cleared, with an extended course of oral antibiotics. Demetrio continues to be followed by wound care, diabetic education and physical therapy with recommendations for home health RN for wound care anticipated upon discharge. CM requested Podiatry consult from MD as well. Anticipate new [facility]NA healthcare applications analyst orders upon discharge. Family will drive him home via private vehicle when ready. CM continues to follow.
--- NOTE | 2020-07-05 12:07 | PT.INTREAT ---
Date of service: 07/05/20 Time of Service: 11:05 PT Notes Visit Reasons: SEPSIS DUE TO CELLULITIS OF BLE'S Inpatient Physical Therapy Treatment Note [facility] Date: 07/05/2020 PRECAUTIONS: B foot pain SUBJECTIVE: Mejia is pleasant and agreeable to participating in PT. He states that he continues to have intermittent shooting pain in B feet. He reports that he has been independent with transfers and ambulation within his room, and he feels safe. OBJECTIVE: Following a discussion with nursing, patient, and PT, patient has been cleared to be independent with hallway ambulation. PAIN: Patient c/o intermittent shooting pain in B feet with gait training and ther ex. BED MOBILITY/TRANSFERS Supine-sit: I Sit-stand: I Stand-sit: I Bed-Chair: I Chair-bed: I GAIT Assistive Device: No AD Weight bearing: Full Assist: I Distance: 200' x2 Deviation: Seated rest x1 due to pain THEREX: Patient was instructed in a LE strengthening program and dynamic balance retaining program, completed in a standing position, as per flow sheet. He was able to tolerate a progression in his ther ex program, tolerating increased reps with all exercises. STAIRS: Up/down 15x4 and 10x6 using B rails and a step-over pattern, independently. ASSESSMENT: Patient tolerated session with c/o pain in B feet with gait training and ther ex completion, although it did not appear to limit his ability to participate in PT today. He was able to tolerate a progression in his ther ex program, tolerating increased reps with all exercises. PLAN: Patient is cleared to be independent with transfers and ambulation within his room and in the hallway. Will continue with ther ex progression and balance retraining for improved activity tolerance. TREATMENT CODE/TIME: 30 minutes; [id number], [id number] (11:05)
--- NOTE | 2020-07-05 16:40 | PGE_ITS ---
Date of Service Date of service: 07/05/20 Time of Service: 19:10 Assessment and Plan Assessment and plan (1) Streptococcal infection group G: Status: Acute Assessment and plan: He had positive blood cultures initially for Strep Group G but his repeat cultures from 07/03 has shown no growth. He has been given broad spectrum antibiotic treatment from 06/30 to 07/02 and his antibiotics have been tailored to high dose PCN G since then. I probably should have added clindamycin initially given his bacteremia but he seems to have cleared well w/ his current regimen and at this point I think completion of 7 days of iv antibiotics then transition to oral PenVK 500 mg qid x 14 days should be fine. He need outpatient arterial vascular studies given his DM and poor circulation. He also needs compression stockings (which he says he has already been measured for prior to this infection). He may benefit from lymphedema pumps once his skin heals. (2) NSTEMI (non-ST elevated myocardial infarction): Status: Acute Assessment and plan: type 2 demand ischemia. Normal LV function per echo. cont. ASA, statin, BB. can obtain outpatient stress MPI (3) Acute kidney injury superimposed on chronic kidney disease: Status: Acute Assessment and plan: stable creatinine of 1.4 and BUN 29. will resume his home dose of lasix for his leg edema. (4) Type 2 diabetes mellitus: Status: Chronic Assessment and plan: Basal and bolus insulin per sliding scale. BG went up to 273 this afternoon although his am glucose was 128. I had decr. his NPH yesterday to 15 units daily. I will resume the 20 units to help w/ coverage of his corticosteroids. Qualifiers: Diabetes mellitus fpc insulin use: without predatory animal exterminator use Diabetes mellitus complication status: with hyperglycemia Qualified Code(s): E11.65 - Type 2 diabetes mellitus with hyperglycemia (5) COPD (chronic obstructive pulmonary disease) with emphysema: Status: Chronic Assessment and plan: No dyspnea but w/ end expiratory wheezes. cont. prednisone, Symbicort and Duonebs. Qualifiers: Emphysema type: unspecified Qualified Code(s): J43.9 - Emphysema, unspecified (6) DVT prophylaxis: Status: Acute Assessment and plan: Enoxaparin No TEDS or SCD while he has active sores/cellulitis of his legs. Once skin is healed then he can apply his measured CRISTAL hose (7) Discharge planning issues: Status: Acute Assessment and plan: Full code cont. P.T., probably could benefit from home health services for his chronic leg edema and skin ulcerations and benefit from home P.T. I think that he could be changed to oral antibiotics soon i.e. in the next 1 to 2 days then dc home w/ 2 more weeks of antibiotics. Subjective Subjective Interval history since last seen: Patient continues to improve. Legs are not paining him. They are no longer weeping. He remains afebrile and his inflammatory markeres continue to improve (CRP down to 3.0, procalcitonin is donw to 1.3 from 12.6), although his WBC did rise slightly to 14,000. Today is day #4 of PCN G 4 million units q4h (prior to that he was on Rocephin (06/30- 07/01) and Vancomycin (06/30-07/02)and then Zosyn (07/01-07/02) and Vancomycin begining 06/30 to 07/02. He will continue his current antibiotic regimen through tomorrow but then should continue on oral antibiotics (PenVK 500 mg qid x 2 weeks). Exam Narrative Exam Narrative: Legs were already wrapped when I examined him. The are of greatest erythema of his left leg had receded well below the marker that was placed just below his left knee. The calves are no longer swollen nor tender. Lungs w/ few end expiratory wheezes Heart regular Objective Last Vital Signs Temp 36.7 C 07/05/20 09:09 Pulse 67 07/05/20 09:09 Resp 18 07/05/20 09:09 BP 150/87 H 07/05/20 09:09 Pulse Ox 97 07/05/20 09:09 Laboratory Results - last 24 hr 07/05/20 07/05/20 07/05/20 06:20 06:20 06:20 WBC 14.16 H RBC 3.96 L Hgb 11.5 L D Hct 35.5 L MCV 89.6 MCH 29.0 MCHC 32.4 RDW 13.1 Plt Count 401 H MPV 8.9 Immature Gran % See Differential Neutrophils % 47.0 Band Neutrophils % 2 Lymphocytes % 35.0 Atypical Lymphs % 3 Monocytes % 9.0 Eosinophils % 1.0 Basophils % 0.0 Metamyelocytes % 1 Myelocytes % 2 Nucleated RBC % 0 Absolute Neutrophils 6.94 H Absolute Lymphocytes 5.38 H Absolute Monocytes 1.27 H Absolute Eosinophils 0.14 Absolute Basophils 0.00 RBC Morphology Normal Sodium 139 Potassium 4.5 Chloride 101 Carbon Dioxide 31.3 Anion Gap 6.7 BUN 31 H Creatinine 1.5 H Estimated GFR/1.73 m2 46.54 Glucose 97 Calcium 9.5 C-Reactive Protein 3.06 H Procalcitonin 1.3
[2020-07-05] MEDS: Insulin Aspart 300 UNITS/3 ML PEN SC ×2 (17:06→23:30)
[2020-07-05 17:37] VITALS: BP 157/78; PULSE 74; RESP 18; TEMP 36.3; O2SAT 99
[2020-07-05] MEDS: Hyaluronidase 150 UNITS VIAL IJ (19:28)
[2020-07-05 19:30] VITALS: BP 153/84; PULSE 82; RESP 18; TEMP 36.4; O2SAT 98
[2020-07-05] MEDS: Enoxaparin 40 MG/0.4 ML SYR SC (20:30)
[2020-07-05 23:35] VITALS: BP 152/77; PULSE 69; RESP 14; TEMP 36.3; O2SAT 98
[2020-07-06] MEDS: Normal Saline Flush 10 ML SYR IVP ×2 (00:23→04:28)
[2020-07-06 04:26] VITALS: BP 150/83; PULSE 61; RESP 14; TEMP 35.7; O2SAT 96
[2020-07-06] MEDS: Acetaminophen 325 MG TAB 650 MG PO (04:29)
[2020-07-06 07:29] VITALS: BP 160/94; PULSE 104; RESP 18; TEMP 36.1; O2SAT 95
[2020-07-06] MEDS: Metoprolol 12.5 MG TAB PO (08:07)
[2020-07-06] MEDS: Pantoprazole 40 MG TABCR PO (08:07)
[2020-07-06] MEDS: Aspirin E.C. 81 MG TABEC PO (08:07)
[2020-07-06] MEDS: predniSONE 20 MG TAB 40 MG PO (08:08)
[2020-07-06] MEDS: Insulin NPH-Human 300 UNITS/3 ML PEN 20 UNIT SC (08:09)
[2020-07-06] MEDS: Atorvastatin 10 MG TAB PO (08:09)
[2020-07-06] MEDS: Budesonide/Formoterol 160/4.5 6 GM 60 PUFF INH IH (09:18)
--- NOTE | 2020-07-06 09:37 | PDOC.CMPRO ---
Care Management Progress Note S/O: Demetrio continues to be monitored and treated, per MD, two more days of IV abx are anticipated at this time. Mejia will transition to oral penicillin prior to discharge and remain on abx treatment for four weeks; with continued improvement. He remains pleasant in interaction and verbalizes understanding of his treatment plan. CM continues to follow. A: Sepsis due to Cellulitis of BLE's P: Mejia will be discharged home when medically cleared, with an extended course of oral antibiotics. Demetrio continues to be followed by wound care, diabetic education and physical therapy with recommendations for home health RN for wound care anticipated upon discharge-undetermined if outpatient wound care will be recommended due to homebound status, CM left VM for [facility]NA to discuss. If ineligible for [facility]NA support, outpatient wound care will need to be coordinated. CM requested Podiatry consult from MD as well. Family will drive him home via private vehicle when ready. CM continues to follow.
[2020-07-06 11:35] VITALS: BP 157/90; PULSE 73; RESP 18; TEMP 36.4; O2SAT 95
[2020-07-06] MEDS: Insulin Aspart 300 UNITS/3 ML PEN SC (11:53)
--- NOTE | 2020-07-06 13:42 | W.PM.DS.N ---
Date of service: 07/06/20 Time of Service: 13:42 DS: Diagnosis Discharge Diagnosis (1) Sepsis syndrome: Status: Resolved Asessment and Plan: Patient presented with a septic picture including encephalopathy and acute kidney injury but responded well to IV fluids and parenteral antibiotics as noted below. He never required vasopressors. (2) Streptococcal infection group G: Status: Acute Asessment and Plan: Patient has completed 6 days of parenteral antibiotics including broad-spectrum antibiotics for the first couple days with vancomycin and Zosyn in the last 4 days with high-dose penicillin G. Initial blood cultures were positive for group G strep in 1 out of 2 bottles with follow-up blood culture from July 03, 2020, back no growth x2 sets. Clinically his cellulitis is improving. Patient should continue another 2 weeks of oral antibiotics for a total of 3 weeks. He is being discharged on Pen-Vee K 500 mg p.o. 4 times daily x14 days. Patient will continue to receive home health services with nursing performing daily dressing changes for the next week and then further dressing changes as directed by primary care provider. (3) Bilateral cellulitis of lower leg: Status: Acute Asessment and Plan: Patient has bilateral cellulitis secondary to chronic venous stasis. Patient will receive daily wound care dressing changes per home health services as directed below. He is to complete 2 more weeks of Pen-Vee K 500 mg p.o. 4 times daily. It is recommended that the patient have noninvasive peripheral arterial vascular studies performed as an outpatient given his recurrent history of strep cellulitis with sepsis. (4) NSTEMI (non-ST elevated myocardial infarction): Status: Resolved Asessment and Plan: Patient was deemed to have had a type II NSTEMI or demand ischemic event with no LV or RV injury as noted on his echocardiogram. Patient will remain on a daily aspirin and continue to work on good glycemic control. PCP to monitor lipids and blood sugars as an outpatient. (5) Acute kidney injury superimposed on chronic kidney disease: Status: Resolved Asessment and Plan: Patient sustained acute kidney injury secondary to sepsis. At the time of discharge creatinine is down to 1.5 which is at or near his baseline renal function. (6) Type 2 diabetes mellitus: Status: Chronic Asessment and Plan: Patient was treated with basal bolus insulin while hospitalized patient to resume his outpatient diabetic regimen. Of note glycohemoglobin A1c was 6.4% this admission suggesting overall good blood sugar control. (7) COPD (chronic obstructive pulmonary disease) with emphysema: Status: Chronic Asessment and Plan: Patient was successfully weaned off oxygen but was started on Symbicort and he completed a 5-day course of prednisone 40 mg daily while he was hospitalized. Recommend patient have follow-up PFTs as outpatient. Also he should be evaluated for NANCY. (8) IV infiltration: Status: Acute Asessment and Plan: Please note the patient sustained an infiltration of his peripheral IV in the right forearm on the evening of July 05, 2020. Because of infiltration of penicillin G patient received hyaluronidase injection around the infiltration along with a K pad. Induration over his right forearm diminished overnight and is now nontender. There is just a small bruise at the site of the previous IV. (9) DVT prophylaxis: Status: Resolved Asessment and Plan: Patient was treated prophylactically with enoxaparin for DVT prevention. (10) Discharge planning issues: Status: Resolved Asessment and Plan: Patient is being discharged home to home health care including nursing to provide daily wound dressing changes as directed by [facility] wound care nurse. See instructions below. Discharge Plan Disposition Patient Disposition: HOME W/HOME HEALTH SERVICE Condition: Improving Discharge Details Reason For Visit: SEPSIS DUE TO CELLULITIS OF BLE'S Admit Date/Time: 06/30/20 19:02 Admit Provider: Scarlet Garces Attending Provider: Scarlet Garces Primary Care [facility] Hospital Course: Mr. Artis is a 69-year-old white male with a history of chronic bilateral lower extremity lymphedema and chronic venous stasis dermatitis with history of prior cellulitis as well as type 2 diabetes mellitus, nonoxygen dependent COPD, hypertension, hyperlipidemia who was brought to the emergency department at [facility] on June 30, 2020 with worsening bilateral leg edema and bilateral leg redness. Through his PCP office they have been trying to treat his leg edema with Unna boots but had to have the Unna boots cut off because of pain and redness. Further work-up in the emergency room revealed that the patient in addition to having bilateral leg edema and redness was having fever and altered mental status with periods of confusion as well as falling asleep in the bathroom. He has had no known COVID-19 exposure. Does have a chronic cough that is productive with clear sputum but had increased wheezing and dyspnea. He has a prior history of strep agalactiae bacteremia and MSSA in his wounds. On arrival blood cultures were obtained as well as routine labs and he was started on vancomycin and ceftriaxone and IV fluids. Initial CBC was elevated white count of 26,000 with a blood lactate of 2.0 and a CRP of 14.7 with elevated troponin levels 0.11 and these were trended and remained flat with a final troponin level of 0.11. Patient never had a chest pain. The patient never showed any ischemic EKG changes. Subsequent echocardiogram was performed July 02, 2020 showed mild concentric LVH with normal left ventricular ejection fraction of 55%. No wall motion abnormalities were seen although it was a technically difficult study. He had a sclerotic aortic valve with no stenosis or regurgitation. He had mild MAC with mild mitral regurgitation. Right ventricular systolic pressures were normal. RV size and function was normal. His duplex scan was done of his legs to rule out a DVT given the significant bilateral leg edema. No DVT was found. Chest CT with contrast to rule out PE was ordered from the ER and showed no pulmonary embolism and no evidence of pneumonic consolidation or pleural effusion. No aortic aneurysm or dissection was seen and no adenopathy was seen. Centrilobular emphysema was present. SARS-CoV-2 nasopharyngeal swab on admission was negative. Blood cultures came back from June 30, 2020 showing 1 out of 2 sets positive for Streptococcus dysgalactiae that is group G strep. And CMP on admission showed an acute kidney injury in the setting of chronic kidney disease with elevated BUN of 22 creatinine 1.7. In spite of IV fluid hydration his creatinine only came down to 1.5. It appears that his baseline creatinine is between 1.3 and 1.5 based on his past year of lab work. Treatment consisted of IV fluid hydration along with broad-spectrum antibiotics. He was initially treated with vancomycin and Zosyn which was then later downgraded to high-dose penicillin G 4,000,000 units IV every 4 hours. His COPD was treated with scheduled doses of aerosol treatments with ipatroprium and was put on 5-day course of prednisone 40 mg daily. Patient was then started on Symbicort and short acting bronchodilators was changed to as needed. Patient was able to be weaned off of oxygen and was eventually transferred out of the intensive care unit to the medical/surgical floor where he continued to receive physical therapy as well as wound care treatment of his cellulitis. Insulin doses were given for his diabetes in place of his oral hypoglycemic agents. He was treated with basal bolus insulin. Wound care consult was obtained with the wound care nurse specialist. Please see wound care nurses notes for details. Recomendation:: Right Abarca. Clean wound with Anasept spray and Debrisoft. Pat Dry. Cover with Optiloc. Secure with Kerlix. Reggie wraps to the Knee for compression. Change daily or PRN. Left Foot. Clean wound with Anasept spray, and Debrisoft. Pat dry. Cover with Optiloc. Secure with Kerlix. Apply Reggie wrap distal to the knee for compression. Change daily or PRN Having completed 6 days of parenteral antibiotics for strep bacteremia and having cleared the bacteremia as evidenced by negative blood cultures from July 03, 2020, he is now discharged home on continued home oral antibiotics targeted to his Group G Strep. He will be sent home on PenVK 500 mg PO QID x 14 days. He will need home health services w/ nursing to perform his daily dressing changes as directed above. Patient should be evaluated for NANCY and consider CPAP if he has abnormal PSG. Home Meds and New Rx's Prescriptions: New penicillin V potassium 500 mg tablet 500 mg PO QID Qty: 64 RF: 0 budesonide-formoterol [Symbicort] 160-4.5 mcg/actuation HFA aerosol inhaler 2 inh inhalation BID Qty: 10.2 RF: 0 albuterol sulfate 90 mcg/actuation HFA aerosol inhaler 2 puff inhalation QID PRNQty: 18 RF: 0 Continued calcium carbonate [Calcium 500] 500 mg calcium (1,250 mg) tablet 500 mg PO DAILY PRNRF: 0 (DME) comp.stocking,knee,long,medium Misc See Rx Instructions .ROUTE .MEDSUPPLY Qty: 2 RF: 0 magnesium oxide 250 MG tablet 250 mg PO DAILY PRNRF: 0 cinnamon bark 500 MG capsule 500 mg PO DAILY PRNRF: 0 aspirin 81 MG tablet,delayed release (DR/EC) 81 mg PO PRN RF: 0 atorvastatin [Lipitor] 10 mg tablet 10 mg PO DAILY Qty: 90 RF: 3 (DME) Blood Glucose Test Strip See Rx Instructions .ROUTE .MEDSUPPLY Qty: 100 RF: 3 glipizide 5 mg tablet extended release 24hr 5 mg PO DAILY Qty: 90 RF: 3 (DME) lancets Misc See Rx Instructions .ROUTE .MEDSUPPLY Qty: 100 RF: 3 metformin 500 mg tablet 500 mg PO BID Qty: 180 RF: 3 (DME) blood-glucose meter [OneTouch UltraMini] Kit See Rx Instructions .ROUTE .MEDSUPPLY Qty: 1 RF: 0 furosemide 20 mg tablet 20 mg PO QAM RF: 0 Discharge Instructions Instructions: Cellulitis (DC), Sepsis (DC) Additional Instructions: Complete all of your prescribed antibiotics. You may take lactobacillus capsules or another probiotic to help prevent antibiotic associated diarrhea. Please elevate your legs higher than your chest whenever you are not up and walking. Stand Alone Forms: Nursing Discharge Form Referrals: Martha Valera NP [Primary Care Provider] - 07/12/20 9:00 am Activity:: Activity as Tolerated Equipment/Supplies:: No Equipment Needed Diet:: Carb Counting Discharge Orders Discharge Orders: Discharge Order (Routine); Ordered 07/06/20 Ordered By: Dakota Garcia Other Ambulatory Orders: Basic Metabolic Panel (Routine) Timeframe: 1 Week Facility: [facility] - Location: Laboratory Outpatient Ordered By: Dakota Garcia Complete Blood Count w/Diff (Routine) Timeframe: 1 Week Facility: [facility] - Location: Laboratory Outpatient Ordered By: Dakota Garcia Procalcitonin (DAILY AM) Timeframe: [id number] Facility: [facility] - Location: Laboratory Outpatient Ordered By: Dakota Garcia C-Reactive Protein (Routine) Timeframe: 1 Week Facility: [facility] - Location: Laboratory Outpatient Ordered By: Dakota Garcia DS: Summary Time Spent with Patient providing and/or coordinating discharge services: Greater than 30 minutes Status at Discharge Functional status at discharge: independent ambulation Overall status at discharge: patient is progressing back to baseline Mental Status: mental status grossly normal Speech and Movement: speech and movement normal Mood: congruent mood Affect: normal affect Exam Narrative Exam Narrative: Obese male sitting up in a chair alert and oriented person place time circumstance. Lungs with end expiratory wheezes no rhonchi or rales Heart regular rate and rhythm Lower extremities with chronic venous skin changes with darkening of the skin the area of erythema has receded considerably and there is still an open wound over the right pretibial surface but he has good granulation tissue. Pedal pulses are palpable although weak. There is no purulent drainage from the right pretibial wound and the desquamated skin over his legs has been debrided by wound care nurse. Right forearm area of previous IV infiltration has improved. The induration has gone down and there is no erythema. There is just a tiny bruise over the site of the previous IV cannulation. Psych Mental Status: mental status grossly normal Speech and Movement: speech and movement normal Mood: congruent mood Affect: normal affect DS: Data Vitals/I&O Vitals and I&O: Vital Signs Temperature 36.4 C L 07/06/20 11:35 Temperature Source Tympanic 07/06/20 11:35 Pulse 73 07/06/20 11:35 Pulse Rhythm Regular 07/06/20 08:15 Pulse 114 H 07/02/20 09:20 Respiratory Rate 18 07/06/20 11:35 Respiratory Effort Non-Labored 07/06/20 08:15 Respiratory Depth Normal 07/06/20 08:15 Respiratory Pattern Normal 07/06/20 08:15 Blood Pressure 157/90 H 07/06/20 11:35 Blood Pressure Mean 88 07/03/20 15:40 Blood Pressure Position Supine 07/02/20 08:01 Pulse Oximetry 95 07/06/20 11:35 Oxygen Delivery Method Room Air 07/06/20 11:35 Oxygen Flow Rate 0 07/06/20 11:35 Pain Level 5 07/06/20 04:29 Comment 07/04/20 16:06 Intake & Output 07/05/20 07/06/20 07/06/20 23:59 11:59 23:59 Intake Total 340 / 1370 150 / 390 240 / 390 Output Total 150 / 150 Balance 340 / 1370 0 / 240 240 / 240 Weight 106.4 kg Intake: IV 100 / 250 150 / 150 Oral 240 / 1120 240 / 240 Output: Urine 150 / 150 Other: Urine Appearance Clear Clear Comment Patient ambulates to the bathroom independently. He reports normal urination but more frequent due to medication. Voiding Methods Toilet Toilet Data Completed and Pending Labs on day of discharge: Preliminary micro results at discharge 07/03/20 06:26 Blood Culture - Preliminary Blood NO GROWTH 72 HOURS 07/03/20 06:26 Blood Culture - Preliminary Blood NO GROWTH 72 HOURS PFSH Medical History CKD (chronic kidney disease) COPD (chronic obstructive pulmonary disease) with emphysema Essential hypertension Hyperlipidemia, unspecified Hypothyroidism Obesity Sepsis syndrome Stasis dermatitis of both legs Tobacco use disorder Type 2 diabetes mellitus Venous insufficiency Surgical History Colonoscopy - MAC (11/10/16) Orchiectomy, Radical Left, s/p trauma Repair, ACL Right-Age 17 Family History Father , NM? at age 79. Essential hypertension Myocardial infarction Maternal Aunt Neoplasm Adnexa NOS Maternal Grandmother Neoplasm Adnexa NOS Mother , CVA & PNA at age 81. Essential hypertension Stroke Paternal Grandfather Myocardial infarction Sister No problems noted. Brother No problems noted. Social History Smoking/Tobacco Use Status: Current every day Tobacco Type: cigarettes Smoking packs per day: 0.5 Smoking cigarettes per day: 10.0 Years smoked: 30 Smoking pack-years: 15.00 Smoking risk assessment performed?: Yes Alcohol Intake: current Alcohol Intake frequency: a few times a month Drug use: Never Substance use type: does not use Caregiver/Support person: No Household members: spouse and children Number of Children: 2 number of grandchildren: 4 Communication Needs: None What type of physical activity do you participate in: resistance training Frequency: 1-2 times per week Seatbelt use: always Drive intox or ride w/intox school bus driver/custodian: No Do you feel safe at home: Yes Do you feel safe in your relationship?: Yes
--- NOTE | 2020-07-06 14:04 | PTTR_ITS ---
Date of service: 07/06/20 Time of Service: 09:00 PT Notes Visit Reasons: SEPSIS DUE TO CELLULITIS OF BLE'S Inpatient Physical Therapy Treatment Note [facility] Date: 07/06/2020 OBJECTIVE: Mejia is pleasant and reports that he will be discharging to home later today. He is agreeable to a referral for HH PT upon his discharge. THEREX: Patient was issued and instructed in an independent HEP for UE and LE s trengthening. Exercises are all to be performed in a standing position, with sturdy support for balance. Patient demonstrates good understanding and demonstrates appropriate exercise mechanics. PLAN: Discharge to home when ready per MD, with HEP for UE and LE strengthening, with HH PT. TREATMENT CODE/TIME: 15 minutes; 58223 (09:00)
--- NOTE | 2020-07-06 15:55 | PDOC.HHF2F_ITS ---
Home Health Certification Home Health Certification: 1. Encounter Date and Reason I certify that MAYITO VERNON was seen by Dakota Garcia on 07/06/20 and that I had a [id number] encounter with this patient that meets the physician face to face encounter requirements. 2. Clinical Findings Supporting Skilled Need and Homebound Status I certify that home health services are medically necessary, include either intermittent retirement and/or physical/speech therapy, and that this patient is homebound in that absences from the home require considerable and taxing effort and are infrequent or of short duration, or are attributable to the need to receive medical care. [X] (a) Attached documentation from encounter provides clinical findings supporting skilled need and homebound status (including what assistance patient requires to leave the home). The encounter with the patient was in whole, or in part, for the following medical condition, which is the primary reason for home health care: SEPSIS DUE TO CELLULITIS OF BLE'S Detention: retirement to provide wound care as directed below to facilitate healing of his cellulitis of his legs: Recomendation:: Right Abarca. Clean wound with Anasept spray and Debrisoft. Pat Dry. Cover with Optiloc. Secure with Kerlix. Reggie wraps to the Knee for compression. Change daily or PRN. Left Foot. Clean wound with Anasept spray, and Debrisoft. Pat dry. Cover with Optiloc. Secure with Kerlix. Apply Reggie wrap distal to the knee for compression. Change daily. continue for 1 week then review progress with PCP Physical Therapy: Speech Therapy: Homebound: patient's cellulitis and lymphedema limit his ambulatory status making it difficult 3. Certification and Authentication I certify that I composed the above information based on my clinical judgement relating to this patient's medical condition and, if applicable, clinical findings communicated to me by the NPP or inpatient physician who performed the Home Health Referral. All further orders will be obtained through Martha Valera (Community Based Physician - PCP)
--- NOTE | 2020-07-09 08:45 | INDS_ITS ---
Date of service: 07/09/20 PT Notes Visit Reasons: SEPSIS DUE TO CELLULITIS OF [facility] Physical Therapy Inpatient Discharge Summary Date: 07/09/2020 Dates of service: 07/01/2020 through 07/06/2020 This is a clinical summary of care provided on the duration of dates listed abo ve. No charge was made in the completion of this documentation. Referring Doctor: Scarlet Garces PT Orders: PT CONSULT: Limited ability Precautions: Standard Patient Profile/Admitting Diagnosis: Demetrio is a 69-year-old male with a history of morbid obesity, CKD, COPD, hypertension, hyperlipidemia, diabetes and chronic lymphedema bilateral lower extremities presents with worsening left leg swelling and redness and fever yesterday via the ED. Admitted secondary to sepsis. PMHX: Medical History: CKD (chronic kidney disease), COPD (chronic obstructive pulmonary disease) with emphysema, Essential hypertension, Hyperlipidemia, unspecified, Hypothyroidism, Obesity, Sepsis syndrome,. Stasis dermatitis of both legs, Tobacco use disorder, Type 2 diabetes mellitus, and Venous insu fficiency. Surgical History: Colonoscopy - MAC (11/10/16), Orchiectomy, Radical - Left, s/p trauma, and Repair, ACL - Right-Age 17. Social History/Home Situation: Lives at home with his , son and father in law. 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 Current Functional Limitations: Bilateral LE edema reducing his activity level. Patient notes he has been receiving Unna boot wrapping x1 month left x1 week right. Was previously fitted for compression stockings approximately a week ago has not received at this time Equipment Owned/DME: None Subjective: NT. See most recent RN PRIMARY CARE notes. Objective: General Observation: NT. See most recent RN PRIMARY CARE notes. Mental Status: NT. See most recent RN PRIMARY CARE notes. Pain: NT. See most recent RN PRIMARY CARE notes. Y ROM: Right Upper Extremity: Within normal limits Left Upper Extremity: Within normal limits Right Lower Extremity: Within functional limits with limited ankle dorsiflexion due to swelling Left Lower Extremity: Within functional limits limited ankle dorsiflexion due to swelling Strength: Right Upper Extremity: 5/5 and pain-free Left Upper Extremity: Shoulder flexion 4 -/5, abduction 4/5, external rotation 3 -/5, internal rotation 4/5 Right Lower Extremity: 5/5 and pain-free Left Lower Extremity: 5/5 and pain-free Sensation: Intact light touch Bed Mobility/Transfers: Supine?sit: Independent Sit?stand: Independent Stand?sit: Independent Gait: 200 feet x 2 without AD independently with seated rest. Up and down 15 x 4-inch steps and 10 x 6 inch steps while holding onto B rails with step over step pattern independently. Balance: Static Sitting: Normal Dynamic Sitting: Normal Static Standing: Normal Dynamic Standing: Good Assessment: Patient is a 69 year old male referred to physical therapy services with the diagnosis of sepsis due to bilateral lower extremity cellulitis. Patient has shown significant improvement in terms of mobility and pain level. Goals: Goals X1 week 1. Supine-Sit independent MET 2. Sit-Supine independent MET 3. Sit-Stand independent MET 4. Stand-Sit independent MET 5. Bed-Chair independent MET 6. Chair-Bed independent MET 7. Gait independent 100 feet x 2 MET 8. Stairs up/down 5 steps with railing independent MET DISCHARGE RECOMMENDATIONS: Patient will benefit from home health PT services in order to progress mobility level using least restrictive assistive ambulatory device, assess home safety, identify additional equipment needs, and establish a functional maintenance program that will increase ability of patient to remain at home. TREATMENT CODE/TIME: [place] Thank you for the opportunity to participate in the care of this patient. Danica Arreola PT, DPT, CLT [facility] [place], [place]
== END 2020-07-06 17:25 | disposition home health service (06) | DRG 871 ==
LOC: ER 19:08 → ICU 20:38 → MS 07-03 16:47
PROVIDERS: Internal Medicine; Admitting Provider Internal Medicine; Emergency Provider Physician Assistant; PCP Nurse Practitioner Family; Visit Provider Internal Medicine
DX: A40.8 Other streptococcal sepsis (principal); I21.A1 Myocardial infarction type 2; L03.115 Cellulitis of right lower limb; L03.116 Cellulitis of left lower limb; N17.9 Acute kidney failure, unspecified; L97.811 Non-pressure chronic ulcer of other part of right lower leg limited to breakdown of skin; N18.9 Chronic kidney disease, unspecified; I12.9 Hypertensive chronic kidney disease with stage 1 through stage 4 chronic kidney disease, or unspecified chronic kidney disease; E11.22 Type 2 diabetes mellitus with diabetic chronic kidney disease; I89.0 Lymphedema, not elsewhere classified; E78.5 Hyperlipidemia, unspecified; I87.2 Venous insufficiency (chronic) (peripheral); Z20.822 Contact with and (suspected) exposure to COVID-19; Z79.84 Long term (current) use of oral hypoglycemic drugs; E03.9 Hypothyroidism, unspecified; F17.210 Nicotine dependence, cigarettes, uncomplicated; E66.9 Obesity, unspecified; Z68.33 Body mass index [BMI] 33.0-33.9, adult; I48.0 Paroxysmal atrial fibrillation; E11.65 Type 2 diabetes mellitus with hyperglycemia; G47.33 Obstructive sleep apnea (adult) (pediatric); J43.9 Emphysema, unspecified; L97.521 Non-pressure chronic ulcer of other part of left foot limited to breakdown of skin; I35.8 Other nonrheumatic aortic valve disorders; T80.89XA Other complications following infusion, transfusion and therapeutic injection, initial encounter
CPT/HCPCS: 36410; 36415; 71275; 80048; 80053; 84145; 85652; 87040; 87077; 87635; 93306; 94640; 96361; 96365; 96367; 97110; 97162; 97530; 99223; 99232; 99233; 99239; 99285; J1650; 80202; 81003; 81015; 83036; 83605; 83735; 83880; 84443; 84484; 85025; 86140; 87186; 93005; 93010; 93970; J0131; J2540; J2543; J3470; J3490; J7512; J7614; J7644

== ENCOUNTER 2020-07-07 13:35 | Outpatient (REF) | payer MEDICARE, SELFPAY ==
[2020-07-07 13:54] LABS: Anion Gap 5.9 mmol/L (3-11); BUN 30 mg/dL (7-18); CO2 30.1 mmol/L (21.0-32.0); CREATININE 1.7 mg/dL (0.70-1.30); Calcium 9.3 mg/dL (8.5-10.1); Chloride 101 mmol/L (98-107); Estimated GFR 40.28 (mL/min/1.73m2); Glucose 115 mg/dL (74-106); Potassium 4.4 mmol/L (3.5-5.1); Sodium 137 mmol/L (136-145)
[2020-07-07 14:18] LABS: Procalcitonin 0.3 ng/mL
== END 2020-07-07 13:36 | disposition home or self-care (01) ==
LOC: LBN 13:35
PROVIDERS: PCP Nurse Practitioner Family; Visit Provider Internal Medicine
DX: N17.9 Acute kidney failure, unspecified (principal); L03.116 Cellulitis of left lower limb; B95.4 Other streptococcus as the cause of diseases classified elsewhere
CPT/HCPCS: 80048; 84145; 86140

== ENCOUNTER 2020-07-08 15:18 | Outpatient (REF) | payer MEDICARE, SELFPAY ==
[2020-07-08 17:00] LABS: Procalcitonin 0.2 ng/mL
== END 2020-07-08 15:19 | disposition home or self-care (01) ==
LOC: LBN 15:18
PROVIDERS: PCP Nurse Practitioner Family; Visit Provider Internal Medicine
DX: L03.115 Cellulitis of right lower limb (principal); L03.116 Cellulitis of left lower limb; N17.9 Acute kidney failure, unspecified; B95.4 Other streptococcus as the cause of diseases classified elsewhere; A40.8 Other streptococcal sepsis
CPT/HCPCS: 84145

== ENCOUNTER 2020-07-09 11:29 | Outpatient (REF) | payer MEDICARE, SELFPAY ==
[2020-07-09 12:18] LABS: Procalcitonin 0.1 ng/mL
== END 2020-07-09 11:30 | disposition home or self-care (01) ==
LOC: NCHCN 11:29
PROVIDERS: PCP Nurse Practitioner Family; Visit Provider Internal Medicine
DX: L03.115 Cellulitis of right lower limb (principal); L03.116 Cellulitis of left lower limb; A40.8 Other streptococcal sepsis; B95.4 Other streptococcus as the cause of diseases classified elsewhere; N17.9 Acute kidney failure, unspecified
CPT/HCPCS: 84145

== ENCOUNTER 2020-07-10 03:22 | Outpatient (CLI) | payer MEDICARE, SELFPAY ==
[2020-07-10 09:01] LABS: Abs Immature Grans 0.17 10^3/uL (0.0-0.06); Absolute Basophil Count 0.04 10^3/uL (0.0-0.2); Absolute Eosinophil Count 0.34 10^3/uL (0.0-0.7); Absolute Lymphocyte Count 2.84 10^3/uL (1.2-3.4); Absolute Monocyte Count 0.76 10^3/uL (0.1-0.8); Absolute Neutrophil Count 6.53 10^3/uL (1.2-6.7); Basophils % 0.4; Eosinophils % 3.2; HCT 40.7 % (40.0-50.0); Immature Grans % 1.6; Lymphocytes % 26.6; MCH 28.7 pg (27.0-33.0); MCHC 31.9 % (32.0-36.0); MCV 89.8 fL (80-95); MPV 8.7 fL (8.0-11.0); Monocytes % 7.1; Neutrophils % 61.1; Nucleated RBC 0 %; Platelet Count 399 10^3/uL (130-400); RBC 4.53 10^6/uL (4.36-5.78); RDW 14.2 % (11.8-14.1); RDW-SD 46.2 fL; WBC 10.68 10^3/uL (4.4-10.8)
[2020-07-10 09:17] LABS: Anion Gap 7.6 mmol/L (3-11); BUN 29 mg/dL (7-18); C-Reactive Protein 0.56 mg/dL (0.0-0.3); CO2 28.4 mmol/L (21.0-32.0); CREATININE 1.4 mg/dL (0.70-1.30); Calcium 9.4 mg/dL (8.5-10.1); Chloride 101 mmol/L (98-107); Glucose 145 mg/dL (74-106); Potassium 4.3 mmol/L (3.5-5.1); Sodium 137 mmol/L (136-145)
[2020-07-10 09:40] LABS: Procalcitonin 0.1 ng/mL
== END 2020-07-10 03:23 | disposition home or self-care (01) ==
LOC: LBO 03:22
PROVIDERS: PCP Nurse Practitioner Family; Visit Provider Internal Medicine
DX: B95.4 Other streptococcus as the cause of diseases classified elsewhere (principal); L03.115 Cellulitis of right lower limb; L03.116 Cellulitis of left lower limb; N17.9 Acute kidney failure, unspecified
CPT/HCPCS: 36415; 80048; 84145; 85025; 86140

== ENCOUNTER 2020-07-11 12:51 | Outpatient (REF) | payer MEDICARE, SELFPAY ==
[2020-07-11 13:57] LABS: Procalcitonin 0.1 ng/mL
== END 2020-07-11 12:52 | disposition home or self-care (01) ==
LOC: NCHCN 12:51
PROVIDERS: Internal Medicine; PCP Nurse Practitioner Family; Visit Provider Nurse Practitioner Family
DX: L03.116 Cellulitis of left lower limb (principal)
CPT/HCPCS: 84145; 84146

== ENCOUNTER 2020-07-12 10:30 | Outpatient (REF) | payer MEDICARE, SELFPAY ==
[2020-07-12 14:31] LABS: Abs Immature Grans 0.04 10^3/uL (0.0-0.06); Absolute Basophil Count 0.04 10^3/uL (0.0-0.2); Absolute Eosinophil Count 0.32 10^3/uL (0.0-0.7); Absolute Lymphocyte Count 2.08 10^3/uL (1.2-3.4); Absolute Monocyte Count 0.78 10^3/uL (0.1-0.8); Absolute Neutrophil Count 5.57 10^3/uL (1.2-6.7); Basophils % 0.5; Eosinophils % 3.6; HCT 40.1 % (40.0-50.0); HGB 12.7 g/dL (13.5-17.5); Immature Grans % 0.5; Lymphocytes % 23.6; MCH 28.8 pg (27.0-33.0); MCHC 31.7 % (32.0-36.0); MCV 90.9 fL (80-95); MPV 9.1 fL (8.0-11.0); Monocytes % 8.8; Nucleated RBC 0 %; Platelet Count 342 10^3/uL (130-400); RBC 4.41 10^6/uL (4.36-5.78); RDW 14.1 % (11.8-14.1); RDW-SD 47.4 fL; WBC 8.83 10^3/uL (4.4-10.8)
== END 2020-07-12 10:31 | disposition home or self-care (01) ==
LOC: LBN 10:30
PROVIDERS: PCP Nurse Practitioner Family; Visit Provider Nurse Practitioner Family
DX: L03.116 Cellulitis of left lower limb (principal); L03.115 Cellulitis of right lower limb; B95.4 Other streptococcus as the cause of diseases classified elsewhere
CPT/HCPCS: 85025

== ENCOUNTER 2020-07-13 12:34 | Outpatient (REF) | payer MEDICARE, SELFPAY ==
[2020-07-13 13:39] LABS: Procalcitonin < 0.1 ng/mL
== END 2020-07-13 12:35 | disposition home or self-care (01) ==
LOC: LBN 12:34
PROVIDERS: PCP Nurse Practitioner Family; Visit Provider Nurse Practitioner Family
DX: L03.115 Cellulitis of right lower limb (principal); L03.116 Cellulitis of left lower limb; B95.4 Other streptococcus as the cause of diseases classified elsewhere
CPT/HCPCS: 84145

== ENCOUNTER 2020-07-25 09:41 | Outpatient (REF) | payer MEDICARE, SELFPAY ==
[2020-07-25 10:29] LABS: Abs Immature Grans 0.02 10^3/uL (0.0-0.06); Absolute Basophil Count 0.05 10^3/uL (0.0-0.2); Absolute Eosinophil Count 0.53 10^3/uL (0.0-0.7); Absolute Lymphocyte Count 1.82 10^3/uL (1.2-3.4); Absolute Monocyte Count 0.64 10^3/uL (0.1-0.8); Absolute Neutrophil Count 3.09 10^3/uL (1.2-6.7); Basophils % 0.8; Eosinophils % 8.6; HCT 37.6 % (40.0-50.0); Immature Grans % 0.3; Lymphocytes % 29.6; MCH 28.7 pg (27.0-33.0); MCHC 31.9 % (32.0-36.0); MPV 8.7 fL (8.0-11.0); Monocytes % 10.4; Neutrophils % 50.3; Nucleated RBC 0 %; Platelet Count 323 10^3/uL (130-400); RBC 4.18 10^6/uL (4.36-5.78); RDW 14.2 % (11.8-14.1); RDW-SD 46.8 fL; WBC 6.15 10^3/uL (4.4-10.8)
== END 2020-07-25 09:42 | disposition home or self-care (01) ==
LOC: LBN 09:41
PROVIDERS: PCP Nurse Practitioner Family; Visit Provider Nurse Practitioner Family
DX: L03.116 Cellulitis of left lower limb (principal); L03.115 Cellulitis of right lower limb; A40.8 Other streptococcal sepsis
CPT/HCPCS: 85025

== ENCOUNTER 2020-07-26 10:35 | Outpatient (REF) | payer MEDICARE, SELFPAY ==
[2020-07-24 14:00] LABS: Anion Gap 8.5 mmol/L (3-11); BUN 21 mg/dL (7-18); C-Reactive Protein 0.33 mg/dL (0.0-0.3); CO2 29.5 mmol/L (21.0-32.0); CREATININE 1.2 mg/dL (0.70-1.30); Calcium 9.2 mg/dL (8.5-10.1); Chloride 100 mmol/L (98-107); Glucose 115 mg/dL (74-106); Potassium 4.3 mmol/L (3.5-5.1); Sodium 138 mmol/L (136-145)
[2020-07-24 14:57] LABS: Procalcitonin < 0.1 ng/mL
[2020-07-26 11:03] LABS: Iron 65 ug/dL (65-175); Total Iron Binding Capacity 288 ug/dL (250-450); Transferrin Sat 23 % (20-55)
[2020-07-26 11:30] LABS: Ferritin 141 ng/mL (26-388); Vitamin B12 269 pg/mL (193-986)
[2020-07-26 11:55] LABS: LDH 161 U/L (85-227)
[2020-07-26 17:05] LABS: Folate 5.5 ng/mL (See Note)
[2020-07-27 15:31] LABS: Erythropoietin 14.9 mIU/mL (2.6 - 18.5)
== END 2020-07-26 10:36 | disposition home or self-care (01) ==
LOC: LBN 10:35
PROVIDERS: PCP Nurse Practitioner Family; Visit Provider Nurse Practitioner Family
DX: D64.9 Anemia, unspecified (principal); B95.4 Other streptococcus as the cause of diseases classified elsewhere
CPT/HCPCS: 80048; 82668; 84145; 82607; 82728; 82746; 83540; 83550; 83615; 85025; 86140

== ENCOUNTER 2020-07-31 01:12 | Outpatient (CLI) | payer MEDICARE, SELFPAY ==
--- NOTE | 2020-07-31 06:45 | DI.NM_ITS ---
APPROVED REPORT Exam: Exercise Treadmill Patient Location: Out-Patient Room/Bed: Stress Nurse: Sarah Kennedy RN Ordering Provider:ASHTYN IVANIA, Contact Number: [phone] BMI: 35.00 Baseline Rhythm: Sinus Rhythm Comment: Borderline prolonged OR inteval. Flipped T waves leads III, AVF, V6. ST depression 0.5mm dwight d II. Indications: Recent NSTEMI Medical History Medical History: NSTEMI, COPD, hypertension, hyperlipidemia, diabetes, obesity, tobacco use, hypothyr oidism, anemia, venous insufficiency, stasis dermatitis Cardiac Medications: Aspirin, magnesium oxide, atorvastatin, glipizide, metformin, furosemide, albuer ol sulfate, symbicort, cinnamon bark Allergies: Shellfish, hay fever Cardiac Risk Factors: Hypertension, hyperlipidemia, diabetes, obesity, COPD, smoker (current), COPD, PVD Previous Cardiac Procedures: None Pretest Chest Pain Characteristics: None Exercise History: Sedentary Physical Disabilities: Wounds to lower extremities from venous insufficiency Lung Sounds: Expiratory wheezes LLL Heart Sounds: Regular Stress Test Details Test: Exercise stress testing was performed using a modified [place] protocol. Nuclear Acquisition: Rest Tc-99m/Stress Tc-99m 1 day Rest Isotope: Tc-99m Sestamibi. Dose: 13.5 Date: 07/31/2020 Injection Time: 0900 Stress Isotope: Tc-99m Sestamibi. Dose: 45.0 Date: 07/31/2020 Injection Time: 1040 HR Resting HR Supine: 77 bpm Max Heart Rate (APMHR): 152.321388 bpm Resting HR Standin bpm Target HR (85% APMHR): 129.540753 bpm Max HR Achieved: 146 bpm % of APMHR: 96.05 Recovery HR: 98 bpm HR response to stress: Normal HR response to stress BP Resting BP Supine: 122/74 mmHg Resting BP Standin/72 mmHg Max BP: 158/76 mmHg Recovery BP: 134/78 mmHg BP response to stress: Normal blood pressure response to stress. ECG Resting ECG: Sinus Rhythm Comment: Inferior T wave inversions. Stress ECG: Sinus Tachycardia ST Change: No significant ST segment changes noted Arrhythmia: None Recovery ECG: Sinus Rhythm Recovery Arrhythmia: Occasional PACs and PVCs Comment: Inferior T wave inversions. Clinical Reason for Termination: Fatigue Stress Symptoms: General Fatigue Exercise duration: 3 min11 sec Highest Stage Reached: Stage 1: 1.7 mph at 10% grade. Exercise capacity: 4.64 METs Rate Pressure Product: 52405 Stress ECG Conclusion 1. The patient exercised for 3 minutes (5 METS). Exercise was stopped due to fatigue. 2. The patient's heart rate and blood pressure augmented appropriately 3. Patient had baseline ST abnormalities. Stress ECG is nondiagnostic. MPI Conclusion Ejection fraction was 42% with stress. He is hypokinesis. There is a large partially reversible perfusion defect of the entire apex and apical anterior wall. There is evidence of both infarct and ischemia. This represents an abnormal SPECT stress test. The results of this test were relayed to the nursing staff at [facility] internal medicine. Radiologist Interpretation Radiologist agrees with Glove Machine Operator's Interpretation. Radiologist Interpretation by: Annie Dutton MD Interpretation Date/Time: 07/31/2020 14:04:46
== END 2020-07-31 01:32 ==
LOC: DI 01:12
PROVIDERS: PCP Nurse Practitioner Family; Visit Provider Nurse Practitioner Family
DX: I21.4 Non-ST elevation (NSTEMI) myocardial infarction (principal); R94.39 Abnormal result of other cardiovascular function study; I10 Essential (primary) hypertension; E78.5 Hyperlipidemia, unspecified; E11.9 Type 2 diabetes mellitus without complications; E66.9 Obesity, unspecified; Z87.891 Personal history of nicotine dependence; J44.9 Chronic obstructive pulmonary disease, unspecified; I73.9 Peripheral vascular disease, unspecified
CPT/HCPCS: 78452; 93016; 93018; 93017

== ENCOUNTER → 2020-08-07 11:06 | Outpatient (BNVA) | payer MEDICARE, SELFPAY | PROVIDERS: PCP Nurse Practitioner Family; Referring Provider Nurse Practitioner Family; Visit Provider Internal Medicine Cardiovascular Disease | DX: I48.0 Paroxysmal atrial fibrillation (principal); R94.39 Abnormal result of other cardiovascular function study; I25.2 Old myocardial infarction; E11.9 Type 2 diabetes mellitus without complications; N18.9 Chronic kidney disease, unspecified | CPT/HCPCS: 99204; 99215; 93225 ==

== ENCOUNTER 2020-08-07 12:07 | Outpatient (RCR) | payer MEDICARE, SELFPAY ==
--- NOTE | 2020-08-07 12:00 | HOLTER_ITS ---
APPROVED REPORT Conclusion This is a 48-hour monitor ordered for indication of paroxysmal atrial fibrillation. The patient was in normal sinus rhythm for the majority the recording with an average heart rate of 9 1 bpm. There were no episodes of ventricular tachycardia and rare PVCs. There were 26 episodes of supraventricular tachycardia with the longest lasting 360 beats. Some of t hese had a degree of irregularity which could be atrial fibrillation. There were 18 total events of atrial fibrillation lasting a total of 7 minutes. There were no pauses greater than 3 seconds There were no patient triggered events.
== END 2020-08-13 23:59 | disposition home or self-care (01) ==
LOC: RT 12:07
PROVIDERS: PCP Nurse Practitioner Family; Visit Provider Internal Medicine Cardiovascular Disease
DX: I48.0 Paroxysmal atrial fibrillation (principal)
CPT/HCPCS: 93225; 93226

== ENCOUNTER 2020-08-16 10:31 | Outpatient (CLI) | payer MEDICARE, SELFPAY | END 2020-08-16 10:32 | LOC: CARDO 10-22 12:00 | PROVIDERS: PCP Nurse Practitioner Family; Referring Provider Internal Medicine Cardiovascular Disease; Visit Provider Internal Medicine Cardiovascular Disease | DX: I48.0 Paroxysmal atrial fibrillation (principal); I47.1 Supraventricular tachycardia | CPT/HCPCS: 93227 ==

== ENCOUNTER 2020-10-04 13:09 | Outpatient (REF) | payer MEDICARE, SELFPAY ==
[2020-10-04 17:54] LABS: C-Reactive Protein 2.16 mg/dL (0.0-0.3)
[2020-10-04 17:56] LABS: Abs Immature Grans 0.02 10^3/uL (0.0-0.06); Absolute Basophil Count 0.05 10^3/uL (0.0-0.2); Absolute Lymphocyte Count 1.49 10^3/uL (1.2-3.4); Absolute Neutrophil Count 5.64 10^3/uL (1.2-6.7); Basophils % 0.6; Eosinophils % 4.8; HCT 41.4 % (40.0-50.0); HGB 12.7 g/dL (13.5-17.5); Immature Grans % 0.2; MCH 28.1 pg (27.0-33.0); MCHC 30.7 % (32.0-36.0); MCV 91.6 fL (80-95); MPV 9.5 fL (8.0-11.0); Monocytes % 8.4; Nucleated RBC 0 %; Platelet Count 357 10^3/uL (130-400); RBC 4.52 10^6/uL (4.36-5.78); RDW 13.9 % (11.8-14.1); RDW-SD 46.6 fL
[2020-10-04 18:01] LABS: ESR 44 mm/hr (0-20)
== END 2020-10-04 13:10 | disposition home or self-care (01) ==
LOC: LBN 13:09
PROVIDERS: PCP Nurse Practitioner Family; Visit Provider Nurse Practitioner Family
DX: L03.115 Cellulitis of right lower limb; L03.116 Cellulitis of left lower limb; L08.89 Other specified local infections of the skin and subcutaneous tissue
CPT/HCPCS: 85652; 87077; 85025; 86140; 87070; 87186

== ENCOUNTER 2020-10-08 16:07 | Outpatient (CLI) | payer MEDICARE, SELFPAY | END 2020-10-08 16:08 | disposition home or self-care (01) | LOC: LBO 16:07 | PROVIDERS: PCP Nurse Practitioner Family; Visit Provider Nurse Practitioner Family | DX: L03.115 Cellulitis of right lower limb (principal); L03.116 Cellulitis of left lower limb | CPT/HCPCS: 36415; 87040 ==

== ENCOUNTER → 2020-10-11 09:29 | Outpatient (BNVA) | payer MEDICARE, SELFPAY | PROVIDERS: PCP Nurse Practitioner Family; Referring Provider Nurse Practitioner Family; Visit Provider Internal Medicine Cardiovascular Disease | DX: I48.0 Paroxysmal atrial fibrillation (principal); I25.2 Old myocardial infarction; L03.115 Cellulitis of right lower limb; L03.116 Cellulitis of left lower limb; R94.39 Abnormal result of other cardiovascular function study | CPT/HCPCS: 99213 ==

== ENCOUNTER 2020-10-19 10:30 | Outpatient (CLI) | payer MEDICARE, SELFPAY ==
[2020-10-19 11:21] LABS: Abs Immature Grans 0.02 10^3/uL (0.0-0.06); Absolute Basophil Count 0.06 10^3/uL (0.0-0.2); Absolute Eosinophil Count 0.59 10^3/uL (0.0-0.7); Absolute Monocyte Count 0.69 10^3/uL (0.1-0.8); Absolute Neutrophil Count 3.88 10^3/uL (1.2-6.7); Basophils % 0.9; Eosinophils % 8.9; HCT 39.2 % (40.0-50.0); HGB 12.5 g/dL (13.5-17.5); Immature Grans % 0.3; Lymphocytes % 21.1; MCH 28.7 pg (27.0-33.0); MCHC 31.9 % (32.0-36.0); MCV 90.1 fL (80-95); MPV 8.6 fL (8.0-11.0); Monocytes % 10.4; Neutrophils % 58.4; Nucleated RBC 0 %; Platelet Count 261 10^3/uL (130-400); RBC 4.35 10^6/uL (4.36-5.78); RDW 13.8 % (11.8-14.1); RDW-SD 45.2 fL; WBC 6.64 10^3/uL (4.4-10.8)
[2020-10-19 12:25] LABS: C-Reactive Protein 0.31 mg/dL (0.0-0.3)
== END 2020-10-19 10:31 | disposition home or self-care (01) ==
PROVIDERS: PCP Nurse Practitioner Family; Visit Provider Nurse Practitioner Family
DX: L03.115 Cellulitis of right lower limb (principal); L03.116 Cellulitis of left lower limb; Z86.19 Personal history of other infectious and parasitic diseases
CPT/HCPCS: 36415; 85025; 86140

== ENCOUNTER → 2021-01-22 13:46 | Outpatient (BNVA) | payer MEDICARE, SELFPAY | PROVIDERS: PCP Nurse Practitioner Family; Referring Provider Nurse Practitioner Family; Visit Provider Internal Medicine Cardiovascular Disease | DX: R94.39 Abnormal result of other cardiovascular function study (principal); I21.4 Non-ST elevation (NSTEMI) myocardial infarction; I48.0 Paroxysmal atrial fibrillation; I10 Essential (primary) hypertension; I87.2 Venous insufficiency (chronic) (peripheral) | CPT/HCPCS: 93005; 99214 ==

== ENCOUNTER → 2021-04-09 08:56 | Outpatient (BNVA) | payer MEDICARE, SELFPAY | PROVIDERS: PCP Nurse Practitioner Family; Referring Provider Nurse Practitioner Family; Visit Provider Internal Medicine Cardiovascular Disease | DX: R94.39 Abnormal result of other cardiovascular function study (principal); I48.91 Unspecified atrial fibrillation; I10 Essential (primary) hypertension; E78.5 Hyperlipidemia, unspecified; F17.210 Nicotine dependence, cigarettes, uncomplicated; Z79.01 Long term (current) use of anticoagulants | CPT/HCPCS: 99214 ==

== ENCOUNTER 2021-05-09 02:11 | Outpatient (CLI) | payer MEDICARE, SELFPAY ==
[2021-05-09 08:50] LABS: Abs Immature Grans 0.02 10^3/uL (0.0-0.06); Absolute Basophil Count 0.06 10^3/uL (0.0-0.2); Absolute Eosinophil Count 0.37 10^3/uL (0.0-0.7); Absolute Lymphocyte Count 1.75 10^3/uL (1.2-3.4); Absolute Monocyte Count 0.66 10^3/uL (0.1-0.8); Basophils % 0.8; Eosinophils % 5.2; HCT 44.6 % (40.0-50.0); HGB 14.2 g/dL (13.5-17.5); Immature Grans % 0.3; Lymphocytes % 24.8; MCH 29.8 pg (27.0-33.0); MCHC 31.8 % (32.0-36.0); MCV 93.5 fL (80-95); MPV 9.1 fL (8.0-11.0); Monocytes % 9.3; Neutrophils % 59.6; Nucleated RBC 0 %; Platelet Count 277 10^3/uL (130-400); RBC 4.77 10^6/uL (4.36-5.78); RDW 13.5 % (11.8-14.1); RDW-SD 46.2 fL; WBC 7.06 10^3/uL (4.4-10.8)
[2021-05-09 09:06] LABS: Hemoglobin A1C 6.3 % (<5.7)
[2021-05-09 09:28] LABS: COMMENT (LAB VIEW ONLY) 194.55 mg/dL; Microalb ug/mg Crea 37.2 ug/mg Cr
[2021-05-09 10:15] LABS: ALT 33 U/L (16-63); AST 20 U/L (15-37); Albumin 3.8 g/dL (3.4-5.0); Alkaline Phosphatase 52 U/L (46-116); Anion Gap 9.5 mmol/L (3-11); BUN 22 mg/dL (7-18); Bilirubin, Total 0.4 mg/dL (0.2-1.0); CO2 27.5 mmol/L (21.0-32.0); CREATININE 1.3 mg/dL (0.70-1.30); Calcium 9.3 mg/dL (8.5-10.1); Calculated LDL 89 mg/dL (<100); Chloride 104 mmol/L (98-107); Cholesterol 194 mg/dL (<200); Estimated GFR 54.73 (mL/min/1.73m2); Glucose 122 mg/dL (74-106); HDL Cholesterol 46 mg/dL (40-60); Potassium 4.4 mmol/L (3.5-5.1); Sodium 141 mmol/L (136-145); Total Protein 8.1 g/dL (6.4-8.2); Triglyceride 296 mg/dL (<150)
[2021-05-09 10:17] LABS: Vitamin B12 > 2000 pg/mL (193-986)
== END 2021-05-09 02:12 | disposition home or self-care (01) ==
LOC: LBO 02:11
PROVIDERS: PCP Nurse Practitioner Family; Visit Provider Nurse Practitioner Family
DX: E11.65 Type 2 diabetes mellitus with hyperglycemia (principal); I10 Essential (primary) hypertension; N18.30 Chronic kidney disease, stage 3 unspecified; D64.9 Anemia, unspecified; Z51.81 Encounter for therapeutic drug level monitoring; E78.5 Hyperlipidemia, unspecified
CPT/HCPCS: 36415; 80053; 80061; 82043; 82570; 82607; 83036; 85025

== ENCOUNTER 2021-06-24 01:08 | Outpatient (CLI) | payer MEDICARE, SELFPAY ==
--- NOTE | 2021-06-24 09:02 | DI.CTLCSR_ITS ---
Exam(s) CT CHEST LUNG CANCER SCREEN EXAM: CT CHEST LUNG CANCER SCREEN CLINICAL HISTORY: Screening for lung cancer,CURRENT SMOKER, F17.210,Z12.2 TECHNIQUE: Imaging Protocol: Axial computed tomography images with coronal and sagittal reformatted images were created and reviewed COMPARISON: CT CT CHEST PE CTA from 10/30/[address] CHEST PE CTA from 06/30/2020 FINDINGS: Tracheobronchial tree: Patent where visualized. Mediastinum and Mishel: Stable small nodule anterior mediastinum. No dominant adenopathy or fluid joyce ection. Pulmonary parenchyma: No consolidation or dominant measurable mass. [id number]-[id number] emphysematous c hanges greater in the upper lobes. Mild basilar scarring. Lung Nodules: None. Pleura: No effusion or pneumothorax. Heart: The heart is not dilated. Moderate to severe coronary artery calcifications are seen. Aorta: Thoracic aorta non-dilated. Upper abdomen: Unremarkable. Bones: Degenerative changes throughout thoracic spine. Stable mild T8 compression fracture. Soft Tissues: Unremarkable. IMPRESSION: No suspicious pulmonary nodules. Emphysematous changes. Lung RADS Cat 1 - Negative: No nodules and definitely benign nodules Lung-RADS 1.0 CATEGORIES: Category 0 - Prior chest CT exam(s) being located for comparison. Category 1 - Annual screening in 12 months. No nodules or definitely benign nodules. Category 2 - Annual screening in 12 months. Benign appearance. Nodules with low likelihood of becomin g active cancer. Category 3 - 6-month follow-up. Probably benign. Short-term follow-up suggested. Nodules with low lik elihood of becoming active cancer. Category 4A - 3-month follow-up and CT/PET if >8 mm in size. Suspicious finding. Findings which requi re additional testing. Category 4B - Findings which require additional testing and tissue sampling. Category 4X - Category 3 or 4 nodules with additional features or imaging findings that increases the suspicion of malignancy. Modifier S- Potentially clinically significant findings (non lung cancer) RADIATION DOSE DELIVERED: 99.24mGy.cm Total DLP 2.21mGy CTDIvol DATA REPOSITORY: All CT scans at this facility are submitted to the National Radiology Data Registry (NRDR) Dose Index Registry (DIR) with the [employer] (A[employer]). RADIATION OPTIMIZATION: All CT scans at this facility use at least one of these dose optimization te chniques: automated exposure control; mA and/or kV adjustment per patient size (includes targeted exa ms where dose is matched to clinical indication); or iterative reconstruction.
== END 2021-06-24 01:28 ==
PROVIDERS: PCP Nurse Practitioner Family; Visit Provider Nurse Practitioner Family
DX: Z12.2 Encounter for screening for malignant neoplasm of respiratory organs (principal); F17.210 Nicotine dependence, cigarettes, uncomplicated; J98.4 Other disorders of lung; J98.59 Other diseases of mediastinum, not elsewhere classified
CPT/HCPCS: 71271

== ENCOUNTER 2021-08-29 04:30 | Outpatient (CLI) | payer MEDICARE, SELFPAY ==
[2021-08-29] MEDS: Albuterol HFA 18 GM 200 PUFF INH IH (11:40)
[2021-08-29] MEDS: Inhaler, Assist Device 1 EACH MC (11:40)
--- NOTE | 2021-08-30 12:46 | W.PFT ---
Date of service: 08/29/21 Time of Service: 10:06 Pulmonary Function Test Result Requesting Provider Angelina Lewis Indications: COPD Interpretation Spirometry: There is very severe airflow limitation. There is a significant bronchodilator response. Impression Very severe airflow obstruction with a significant bronchodilator response. Note: When compared to 10/29/19, the FEV1 anf FVC have both significantly decreased. Clinical Correlation therefore is recommended.
== END 2021-08-29 04:31 | disposition home or self-care (01) ==
LOC: RT 04:31
PROVIDERS: PCP Nurse Practitioner Family; Visit Provider Nurse Practitioner
DX: R06.02 Shortness of breath (principal); J44.9 Chronic obstructive pulmonary disease, unspecified; R94.2 Abnormal results of pulmonary function studies; R06.09 Other forms of dyspnea; F17.210 Nicotine dependence, cigarettes, uncomplicated
CPT/HCPCS: 94060

== ENCOUNTER 2021-09-13 12:45 | Outpatient (REF) | payer MEDICARE, SELFPAY ==
[2021-09-13 15:38] LABS: Abs Immature Grans 0.02 10^3/uL (0.0-0.06); Absolute Basophil Count 0.06 10^3/uL (0.0-0.2); Absolute Eosinophil Count 0.23 10^3/uL (0.0-0.7); Absolute Lymphocyte Count 1.29 10^3/uL (1.2-3.4); Absolute Monocyte Count 0.63 10^3/uL (0.1-0.8); Absolute Neutrophil Count 4.13 10^3/uL (1.2-6.7); Basophils % 0.9; Eosinophils % 3.6; HCT 41.6 % (40.0-50.0); Immature Grans % 0.3; Lymphocytes % 20.3; MCHC 31.3 % (32.0-36.0); MCV 93 fL (80-95); MPV 9.4 fL (8.0-11.0); Monocytes % 9.9; Platelet Count 315 10^3/uL (130-400); RBC 4.49 10^6/uL (4.36-5.78); RDW 14.2 % (11.8-14.1); RDW-SD 47.7 fL; WBC 6.36 10^3/uL (4.4-10.8)
[2021-09-13 15:50] LABS: ESR 42 mm/hr (0-20)
[2021-09-13 16:17] LABS: Anion Gap 7.2 mmol/L (3-11); BUN 25 mg/dL (7-18); C-Reactive Protein 3.11 mg/dL (0.0-0.3); CO2 28.8 mmol/L (21.0-32.0); CREATININE 1.4 mg/dL (0.70-1.30); Calcium 9.1 mg/dL (8.5-10.1); Chloride 102 mmol/L (98-107); Estimated GFR 50.25 (mL/min/1.73m2); Glucose 108 mg/dL (74-106); Potassium 4.3 mmol/L (3.5-5.1); Sodium 138 mmol/L (136-145)
== END 2021-09-13 12:46 | disposition home or self-care (01) ==
LOC: LBN 12:45
PROVIDERS: PCP Nurse Practitioner Family; Visit Provider Nurse Practitioner Adult Health
DX: I87.2 Venous insufficiency (chronic) (peripheral) (principal); Z86.19 Personal history of other infectious and parasitic diseases; E78.5 Hyperlipidemia, unspecified; S81.801A Unspecified open wound, right lower leg, initial encounter; S81.802A Unspecified open wound, left lower leg, initial encounter
CPT/HCPCS: 80048; 85652; 85025; 86140; 87070

== ENCOUNTER 2021-10-02 18:05 | Inpatient (IN) | payer MEDICARE, SELFPAY ==
[2021-10-02] VITALS (63 sets, daily range): BP systolic 81–158; BP diastolic 45–111; PULSE 76–158; RESP 14–30; TEMP 38.1; O2SAT 74–100
--- NOTE | 2021-10-02 18:00 | RT.EKG_ITS ---
APPROVED REPORT Exam: Resting ECG Reason for Exam: weak.tired Patient Location: E HR:130 bpm ECG Measurements Heart Rate 130 AXIS MS 135 P 120 QRSd 145 QRS 99 QT 328 T 7 QTc 484 Conclusion Sinus tachycardia...rate> 99 Multiform ventricular premature complexes...short R-R, variable morphology Right bundle branch block...QRSd>120, terminal axis(90,270) Anterior infarct, age indeterminate...Q >35mS, T neg, in V2-V5 tachycardia, appears slightly irregular, PVCs, RBBB
--- NOTE | 2021-10-02 18:30 | DI.RAD_ITS ---
Exam(s) XR PORTABLE CHEST AP EXAM: XR PORTABLE CHEST AP CLINICAL HISTORY: sob, chf v copd v pneumonia. TECHNIQUE: 2D digital imaging was performed. COMPARISON: CT CT CHEST LUNG CANCER SCREEN from 06/24/2021 FINDINGS: Single AP portable view. Heart size is upper normal. The mediastinum is not widened. There is now moderate-large right pleural effusion. Subjacent atelectasis right lower lobe. Left neelima ng is clear. IMPRESSION: Moderate-large right pleural effusion now evident. Associated volume loss in the right lower lobe.Cl ose follow-up recommended to rule out malignancy. DATA REPOSITORY: RADIATION DOSE DELIVERED: All CT scans at this facility use at least one of these dose optimization techniques: automated exposure control; mA and/or kV adjustment per patient size (includes targeted e xams where dose is matched to clinical indication); or iterative reconstruction.
--- NOTE | 2021-10-02 18:37 | W.ED.GENAD ---
Discharge Plan Disposition Patient Disposition: [facility] INPATIENT Condition: Fair Discharge Details Chief Complaint: SOB Clinical Impression: CHF (congestive heart failure), COPD (chronic obstructive pulmonary disease), Pneumonia Primary Care Provider: Martha Valera ED Provider: Faustino Cochran Home Meds and New Rx's Prescriptions: No Action calcium carbonate [Calcium 500] 500 mg calcium (1,250 mg) tablet 500 mg PO DAILY Rx Instructions: States he takes it 3 to 4 times a week. atorvastatin 10 mg tablet 10 mg PO QPM Qty: 90 4RF terbinafine HCl [Antifungal (terbinafine)] 1 % cream 1 applic topical .every other day betamethasone valerate 0.1 % ointment 1 applic topical QD-BID PRN (Reason: High Potency (Group 3) topical steroid) Qty: 45 3RF metoprolol succinate 50 mg tablet extended release 24 hr 50 mg PO DAILY Qty: 90 3RF Eliquis 5 mg tablet 5 mg PO BID Qty: 60 10RF nystatin 100,000 unit/gram powder 1 applic topical BID Qty: 30 0RF Rx Instructions: Apply liberally to groin folds twice daily for 7-14days for yeast. albuterol sulfate 2.5 mg /3 mL (0.083 %) solution for nebulization 2.5 mg inhalation Q4H PRN (Reason: shortness of breath or wheezing) Qty: 90 0RF furosemide 20 mg tablet See Rx Instructions .ROUTE .COMPLEX Qty: 90 0RF Dose Instruction: TAKE 1 TABLET BY MOUTH DAILY IN THE MORNING Rx Instructions: TAKE 1 TABLET BY MOUTH DAILY IN THE MORNING prednisone 20 mg tablet 40 mg PO .daily in AM Qty: 14 0RF Rx Instructions: COPD exacerbation (DME) comp.stocking,knee,long,medium Misc See Rx Instructions .ROUTE .MEDSUPPLY Qty: 2 0RF Rx Instructions: As directed. Please measure patient for appropriate size. cyanocobalamin (vitamin B-12) 1,000 mcg tablet 1,000 mcg PO DAILY Qty: 90 3RF ammonium lactate 12 % cream 1 applic topical QD-BID PRN (Reason: dry skin) Qty: 140 3RF albuterol sulfate 90 mcg/actuation HFA aerosol inhaler 2 puff inhalation QID PRN (Reason: SOB) Qty: 18 12RF (DME) Blood Glucose Test Strip See Rx Instructions .ROUTE .MEDSUPPLY Qty: 100 3RF Rx Instructions: As directed to check blood glucose daily. No insulin. Dispense covered brand. (DME) lancets Misc See Rx Instructions .ROUTE .MEDSUPPLY Qty: 100 3RF Rx Instructions: As directed to check blood glucose daily. No insulin. Dispense covered brand. aspirin 81 mg tablet,delayed release (DR/EC) 81 mg PO DAILY cinnamon bark 500 mg capsule 500 mg PO DAILY Rx Instructions: States he takes as needed magnesium oxide 250 mg magnesium tablet 250 mg PO DAILY Rx Instructions: States he takes it 3 to 4 times a week glipizide 5 mg tablet extended release 24hr 5 mg PO DAILY Qty: 90 3RF metformin 500 mg tablet 500 mg PO DAILY Qty: 90 3RF triamcinolone acetonide 0.1 % ointment 1 applic topical DAILY Rx Instructions: 12/24/20 [facility] [place] Derm Apply to both legs on top of vinegar spray after bathing daily (DME) blood-glucose meter [OneTouch UltraMini] Kit See Rx Instructions .ROUTE .MEDSUPPLY Qty: 1 0RF Rx Instructions: As directed Medical Decision Making 70-year-old male history of CKD, diabetes, obesity, COPD presents with worsening shortness of breath over the past several weeks to months, cough nonproductive, bilateral pitting edema to lower extremities, denies cardiac history however endorses that he may have had a small heart attack when he was hospitalized in the past. No history of stenting or open heart surgery. EKG sinus tachycardia with right bundle branch block, lungs with wheezing and crackles bilaterally, bedside ultrasound showing diffuse B-lines, reduced ejection fraction on cardiac examination, likely predominantly CHF exacerbation possible component of COPD, versus worsening pleural effusions versus pneumonia, less likely PE or aortic pathology, trial of diuresis, trial of BiPAP, admission for diuresis likely. 22: 07 evidence of CHF as well as possible underlying pneumonia, heart rate improving now 123 down from 150s, patient endorses is feeling much more comfortable from a respiratory standpoint, was transition from nonrebreather to nasal cannula 3 L. Started on antibiotics. We will continue with diuresis. HPI General Date/Time Provider Initiated Documentation: 10/02/21 18:34. HPI Narrative: 70-year-old male history of COPD CKD diabetes presents with shortness of breath worsening over the past several weeks to months, has noticed worsening bilateral upper extremity edema, was told he has pneumonia and has been taking antibiotics and steroids, has also been using his inhaler without effect over the past several days. Related Data Home Medications Medication Instructions Recorded Confirmed blood-glucose meter (OneTouch #1 ea 11/02/19 10/02/21 UltraMini kit) blood sugar diagnostic (Blood #100 ea 12/07/19 10/02/21 Glucose Test strips) lancets #100 ea 12/07/19 10/02/21 comp.stocking,knee,long,medium #2 units 06/01/20 10/02/21 aspirin 81 mg tablet,delayed 81 mg PO DAILY 08/07/20 10/02/21 release calcium carbonate 500 mg calcium 500 mg PO DAILY 08/07/20 10/02/21 (1,250 mg) tablet (Calcium 500) cinnamon bark 500 mg capsule 500 mg PO DAILY 08/07/20 10/02/21 magnesium oxide 250 mg PO DAILY 08/07/20 10/02/21 ammonium lactate 12 % topical cream 1 applic topical QD-BID PRN dry 08/17/20 10/02/21 skin #140 grams cyanocobalamin (vitamin B-12) 1,000 mcg PO DAILY #90 tab-caps 08/17/20 10/02/21 1,000 mcg tablet atorvastatin 10 mg tablet 10 mg PO QPM #90 tabs 10/11/20 10/02/21 betamethasone valerate 0.1 % 1 applic topical QD-BID PRN High 11/16/20 10/02/21 topical ointment Potency (Group 3) topical steroid #45 grams terbinafine HCl 1 % topical cream 1 applic topical .every other day 11/16/20 10/02/21 (Antifungal (terbinafine)) glipizide 5 mg tablet, extended 5 mg PO DAILY #90 tab-caps 12/17/20 10/02/21 release 24 hr metformin 500 mg tablet 500 mg PO DAILY #90 tab-caps 12/24/20 10/02/21 triamcinolone acetonide 0.1 % 1 applic topical DAILY 12/24/20 10/02/21 topical ointment apixaban 5 mg tablet (Eliquis) 5 mg PO BID #60 tabs 01/22/21 10/02/21 metoprolol succinate 50 mg 50 mg PO DAILY #90 tabs 01/22/21 10/02/21 tablet,extended release 24 hr albuterol sulfate 90 mcg/actuation 2 puff inhalation QID PRN SOB #18 08/05/21 10/02/21 aerosol inhaler grams albuterol sulfate 2.5 mg/3 mL 2.5 mg (3 mL) inhalation Q4H PRN 09/13/21 10/02/21 (0.083 %) solution for nebulization shortness of breath or wheezing #90 mL nystatin 100,000 unit/gram topical 1 applic topical BID #30 grams 09/13/21 10/02/21 powder furosemide 20 mg tablet See Rx Instructions .Route 09/30/21 10/02/21 .COMPLEX #90 tabs prednisone 20 mg tablet 40 mg PO .daily in AM #14 tabs 09/30/21 10/02/21 Previous Rx's Medication Instructions Recorded blood-glucose meter (OneTouch #1 ea 11/02/19 UltraMini kit) blood sugar diagnostic (Blood #100 ea 12/07/19 Glucose Test strips) lancets #100 ea 12/07/19 comp.stocking,knee,long,medium #2 units 06/01/20 ammonium lactate 12 % topical cream 1 applic topical QD-BID PRN dry 08/17/20 skin #140 grams cyanocobalamin (vitamin B-12) 1,000 mcg PO DAILY #90 tab-caps 08/17/20 1,000 mcg tablet atorvastatin 10 mg tablet 10 mg PO QPM #90 tabs 10/11/20 betamethasone valerate 0.1 % 1 applic topical QD-BID PRN High 11/16/20 topical ointment Potency (Group 3) topical steroid #45 grams glipizide 5 mg tablet, extended 5 mg PO DAILY #90 tab-caps 12/17/20 release 24 hr metformin 500 mg tablet 500 mg PO DAILY #90 tab-caps 12/24/20 apixaban 5 mg tablet (Eliquis) 5 mg PO BID #60 tabs 01/22/21 metoprolol succinate 50 mg 50 mg PO DAILY #90 tabs 01/22/21 tablet,extended release 24 hr albuterol sulfate 90 mcg/actuation 2 puff inhalation QID PRN SOB #18 08/05/21 aerosol inhaler grams albuterol sulfate 2.5 mg/3 mL 2.5 mg (3 mL) inhalation Q4H PRN 09/13/21 (0.083 %) solution for nebulization shortness of breath or wheezing #90 mL nystatin 100,000 unit/gram topical 1 applic topical BID #30 grams 09/13/21 powder furosemide 20 mg tablet See Rx Instructions .Route 09/30/21 .COMPLEX #90 tabs prednisone 20 mg tablet 40 mg PO .daily in AM #14 tabs 09/30/21 Allergies Allergy/AdvReac Type Severity Reaction Status Date / Time shellfish derived Allergy Intermediate Hives Verified 10/02/21 18:20 house dust Allergy Mild Verified 10/02/21 18:20 hay fever Allergy Mild runny nose Uncoded 10/02/21 18:20 and cough General Stated Complaint: SOB MONY: 2 Review of Systems Narrative: Review of Systems Constitutional: negative Eyes: negative ENT: negative Cardiovascular: negative Respiratory: Shortness of breath Gastrointestinal: negative : negative Musculoskeletal: negative Skin: negative Neurologic: negative Psych: negative PFSH All Active Problems (Updated 10/02/21 @ 22:08 by Faustino Cochran MD) CHF (congestive heart failure) (Chronic) COPD (chronic obstructive pulmonary disease) (Chronic) Pneumonia (Acute) 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 2 diabetes mellitus (Chronic ~10/2019) Atrial fibrillation (Chronic) Psoriasis (Chronic) Tinea pedis (Acute 10[place]29/20[place] [facility] [place] Vitamin B12 deficiency (Chronic) Abnormal nuclear stress test (Acute) Stasis dermatitis of both legs (Acute) CKD (chronic kidney disease) (Acute) Essential hypertension (Chronic) Type 2 diabetes mellitus (Chronic) Venous insufficiency (Chronic) COPD (chronic obstructive pulmonary disease) with emphysema (Chronic) Obesity (Chronic) Hyperlipidemia, unspecified (Chronic) Tobacco use disorder (Chronic) Medical History Anemia Hypothyroidism NSTEMI (non-ST elevated myocardial infarction) Sepsis syndrome Surgical History Colonoscopy - [facility] [place] (11/10/16) Orchiectomy, Radical Left, s/p trauma Repair, ACL Right-Age 17 Family History Father , NH? at age 79. Essential hypertension Myocardial infarction Maternal Aunt Neoplasm Adnexa NOS Maternal Grandmother Neoplasm Adnexa NOS Mother , CVA & PNA at age 81. Essential hypertension Stroke Paternal Grandfather Myocardial infarction Social History Smoking/Tobacco Use Status: Current every day Tobacco Type: cigarettes Smoking packs per day: 0.5 Smoking cigarettes per day: 10.0 Years smoked: 40 Smoking pack-years: 20.00 Smoking risk assessment performed?: Yes Alcohol Intake: current Alcohol Intake frequency: a few times a month Drug use: Never Substance use type: does not use Adopted: No Caregiver/Support person: No Household members: spouse, family and children Number of Children: 2 number of grandchildren: 4 Communication Needs: None Education Level: college Details: Some College Do you need help understanding health information?: Rarely Pets and animals: No Sexually active: No Do you think of yourself as: straight/heterosexual Current gender identity: male What is your relationship status?: How often do you talk on the phone with friends or family?: once per week How often do you get together with friends or relatives?: once per week Do you belong to any clubs or organized social groups?: no Panel score (0-1 are the most socially isolated patients): 1 What type of physical activity do you participate in: resistance training Duration: < 15 minutes/day Frequency: 1-2 times per week Chantell/Baptism: Restorationism Special chantell needs: No Seatbelt use: always Drive intox or ride w/intox race car driver: No Do you feel safe at home: Yes Do you feel safe in your relationship?: Yes Exam Narrative Exam Narrative: Physical Examination General: alert, awake, cooperative, uncomfortable, tachypneic HEENT: normocephalic, atraumatic; PERRL, EOM intact, conjunctiva normal; no nasal discharge; moist mucous membranes, oral and pharyngeal mucosa normal, tolerating secretions Neck: supple, trachea midline; full ROM Chest: normal to inspection Respiratory: Tachypnea speaking in short sentences, some crackles and wheezing bilaterally Cardiac: Tachycardia, regular rhythm, S1S2 intact, no murmurs rubs or gallops GI: abdomen soft, non-tender, non-distended; no palpable mass or hepatosplenomegaly Skin: no lesions, rashes or trauma appreciated Neuro: AAOx3, normal speech, moving all extremities Extremities: Bilateral pitting edema to level of shins Psych: Appropriate mood and affect Course Vital Signs Vital signs: Vital Signs Temperature 38.1 C H 10/02/21 18:11 Pulse 130 H 10/02/21 18:11 Respiratory Rate 20 10/02/21 18:11 Blood Pressure 136/78 10/02/21 18:11 Pulse Oximetry 80 L 10/02/21 18:11 Temperature 38.1 C H 10/02/21 18:11 Temperature Source Oral 10/02/21 18:11 Pulse 130 H 10/02/21 18:11 Respiratory Rate 23 10/02/21 18:22 Respiratory Effort 10/02/21 18:22 Respiratory Depth Shallow 10/02/21 18:22 Respiratory Pattern Tachypnea 10/02/21 18:22 Blood Pressure 136/78 10/02/21 18:11 Pulse Oximetry 80 L 10/02/21 18:11 Oxygen Delivery Method Room Air 10/02/21 18:11 Oxygen Flow Rate 0 10/02/21 18:11 Pain Level 0 10/02/21 18:11
[2021-10-02] MEDS: Furosemide 100 MG/10 ML VIAL 80 MG IVP (18:49)
[2021-10-02] MEDS: Aspirin 325 MG TAB PO (18:49)
[2021-10-02 18:55] LABS: Abs Immature Grans 0.06 10^3/uL (0.0-0.06); Absolute Basophil Count 0.02 10^3/uL (0.0-0.2); Absolute Lymphocyte Count 0.69 10^3/uL (1.2-3.4); Basophils % 0.1; Eosinophils % 0.1; HCT 45.3 % (40.0-50.0); HGB 14.5 g/dL (13.5-17.5); Immature Grans % 0.3; Lymphocytes % 3.9; MCH 29.5 pg (27.0-33.0); MCV 92 fL (80-95); MPV 9.8 fL (8.0-11.0); Neutrophils % 90.6; Platelet Count 336 10^3/uL (130-400); RBC 4.91 10^6/uL (4.36-5.78); RDW 14.8 % (11.8-14.1); RDW-SD 50.2 fL; WBC 17.66 10^3/uL (4.4-10.8)
[2021-10-02 18:57] LABS: Absolute Eosinophil Count 0.02 10^3/uL (0.0-0.7); Absolute Monocyte Count 0.88 10^3/uL (0.1-0.8)
[2021-10-02 19:07] LABS: PTT Activated 23.2 sec (21.0-27.5); Prothrombin Time 13.3 sec (9.3-11.0)
[2021-10-02 19:08] LABS: INR 1.3 (0.9-1.1)
[2021-10-02 19:12] LABS: ALT 37 U/L (16-63); AST 38 U/L (15-37); Albumin 3.7 g/dL (3.4-5.0); Alkaline Phosphatase 56 U/L (46-116); Anion Gap 6.5 mmol/L (3-11); BUN 30 mg/dL (7-18); Bilirubin, Total 1.4 mg/dL (0.2-1.0); CO2 31.5 mmol/L (21.0-32.0); CREATININE 1.6 mg/dL (0.70-1.30); Calcium 9.4 mg/dL (8.5-10.1); Chloride 102 mmol/L (98-107); Estimated GFR 43.07 (mL/min/1.73m2); Glucose 123 mg/dL (74-106); Potassium 4.9 mmol/L (3.5-5.1); Sodium 140 mmol/L (136-145); Total Protein 8.7 g/dL (6.4-8.2)
[2021-10-02 19:14] LABS: Troponin I 62 ng/L (<or=60)
[2021-10-02 19:33] LABS: NT-proBNP 2228 pg/mL (<300)
--- NOTE | 2021-10-02 19:52 | DI.VRAD_ITS ---
PROCEDURE INFORMATION: Exam: XR Chest Exam date and time: 10/02/2021 7:09 PM Age: 70 years old Clinical indication: Other: SOB, chf v copd v pneumonia TECHNIQUE: Imaging protocol: Radiologic exam of the chest. Views: 1 view. COMPARISON: CT CHEST LUNG CANCER SCREEN 06/24/2021 8:56 AM FINDINGS: Limitations: The exam is limited by body habitus, underpenetration, overlying leads. Lungs: New opacification of the right mid and lower lung zones, likely mid and/or lower lobe volume loss and layering pleural effusion. In the appropriate setting, consider pneumonia or neoplasm. Pleural spaces: See Lungs finding. Heart/Mediastinum: Top-normal heart size. Borderline perihilar vascular fullness, likely accentuated by technique. Bones/joints: Unremarkable. IMPRESSION: 1. New opacification of the right mid and lower lung zones, likely mid and/or lower lobe volume loss and layering pleural effusion. In the appropriate setting, consider pneumonia or neoplasm. 2. Top-normal heart size. Borderline perihilar vascular fullness, likely accentuated by technique. Dictated and Authenticated by: Letitia Ring MD. Ordering:ARLIN Harmon MD
[2021-10-02] MEDS: AZITHROMYCIN 500 MG in Normal Saline 250 ML 250 MG IVPB (20:08)
[2021-10-02 20:10] LABS: Bilirubin Negative (Negative); Blood Trace-intact (Negative); Clarity Clear (Clear); Glucose Negative (Negative); Ketones Negative (Negative); Leukocyte Esterase Negative (Negative); Nitrite Negative (Negative); Specific Gravity 1.025 (1.005-1.025); Urobilinogen 0.2 EU/dL (Up TO 0.2); pH 5.5 (5-8)
[2021-10-02] MEDS: Acetaminophen 500 MG TAB (20:10)
[2021-10-02 20:19] LABS: BE (Venous) 3 mmol/L (-2-3); HCO3 (Venous) 30 mmol/L (23-28); O2 Sat (Venous) 97 %; TCO2 (Venous) 28 mmol/L (24-29); pH (Venous) 7.28 (7.31-7.41); pO2 (Venous) 118 mmHg
[2021-10-02 20:19] LABS: Bacteria Negative HPF (Negative); Epithelial Cells Negative HPF (Negative); RBC 0-2 HPF (0-2); WBC Negative HPF (0-5)
[2021-10-02 20:20] LABS: COVID-19 PCR Negative (Negative); Influenza A PCR Negative (Negative); Influenza B PCR Negative (Negative); RSV PCR Negative (Negative)
[2021-10-02 20:20] LABS: C & S Indicated? No; Mucus Negative (Negative)
[2021-10-02 20:23] LABS: pCO2 (Venous) 65 mmHg (41-51)
[2021-10-02 20:34] LABS: Source Nasopharynx
[2021-10-02 21:36] LABS: Troponin I 84 ng/L (<or=60)
[2021-10-02 22:48] LABS: BE (Venous) 3 mmol/L (-2-3); HCO3 (Venous) 31 mmol/L (23-28); O2 Sat (Venous) 86 %; TCO2 (Venous) 29 mmol/L (24-29); pH (Venous) 7.23 (7.31-7.41); pO2 (Venous) 62 mmHg
[2021-10-02 22:50] LABS: pCO2 (Venous) 74 mmHg (41-51)
[2021-10-02] MEDS: Dexamethasone 10 MG/ML VIAL IVP (22:51)
[2021-10-02] MEDS: Ipratropium 0.5 MG/2.5 ML UPD VIAL UPD (22:52)
[2021-10-02] MEDS: Levalbuterol 1.25 MG/3 ML UPD VIAL UPD (22:52)
--- NOTE | 2021-10-02 23:00 | NUR.NOTE ---
Nursing Note: pt placed on bipap by . 12/18 peep 5,m fi902 - 30%
[2021-10-03] VITALS (20 sets, daily range): BP systolic 97–147; BP diastolic 59–89; PULSE 61–129; RESP 2–25; TEMP 35.9–37; O2SAT 92–100
--- NOTE | 2021-10-03 01:26 | W.PM.HP.N ---
Date of service: 10/02/21 Time of Service: 23:50 Assessment and Plan Assessment and plan (1) CHF (congestive heart failure): Start date: 10/02/21 Status: Acute Assessment and plan: This is a 70-year-old gentleman who has the appearance of the person with sleep apnea being obese with COPD and probable pneumonia along with COPD exacerbation and CHF exacerbation though his BNP appears to be elevated but stable. He also had a slight bump in his troponin. This appears to be secondary to tachycardia with atrial fibrillation chronically exacerbated by his respiratory status. He has responded to IV Lasix and this will be continued with IV Lasix 40 mg twice daily having received Elicia IV in the ED with good diuresis. He will continue on BiPAP as needed and treatment of his pneumonia and COPD exacerbation. He is a full code. Update cardiology consult and echocardiogram as indicated. (2) COPD (chronic obstructive pulmonary disease): Status: Chronic Assessment and plan: COPD with acute exacerbation most likely. Continue Solu-Medrol and aggressive nebulizer treatments along with BiPAP as needed for CO2 retention. (3) Pneumonia: Status: Acute Assessment and plan: Right lung field infiltrates which will be treated with Rocephin and Zithromax IV. Rocephin should also cover possible skin infection over lower extremities. Have chronic venous stasis edema with ulcers being a diabetic. (4) Atrial fibrillation: Status: Chronic Assessment and plan: Atrial fibrillation with rapid ventricular response with stress of acute respiratory disease. Increase metoprolol to 25 mg p.o. every 6 hours and continue Eliquis. Cardiac monitoring with troponin trending. (5) Type 2 diabetes mellitus: Status: Chronic Assessment and plan: Glucometer before meals and at bedtime with an insulin coverage while hospitalized holding oral therapy. Patient may have worsening hyperglycemia on IV steroids. Qualifiers: Diabetes mellitus complication status: with hyperglycemia Diabetes mellitus [facility] insulin use: without [facility] use Qualified Code(s): E11.65 - Type 2 diabetes mellitus with hyperglycemia History of Present Illness History of Present Illness Chief Complaint: Worsening dyspnea with peripheral edema Narrative: This is a 70-year-old male patient who has morbid obesity with CKD, diabetes and COPD who has been treated for possible pneumonia using antibiotics and oral steroids along with inhalers for the past several days. He has had worsening shortness of breath for weeks to months with a nonproductive cough and increasing edema especially of his lower extremities where he has chronic open skin wounds and wound care. He has not had any chest pain and may have had heart strain in the past when hospitalized. He has no history of cardiac surgery. In the ED his EKG did show a right bundle branch block and he had findings of COPD exacerbation and heart failure with imaging suggesting heart failure. He did respond to IV Lasix 80 mg. He was continued on IV antibiotic therapy for possible pneumonia and start IV steroids for possible COPD exacerbation. He did have BiPAP applied because of CO2 retention and this was helped the patient to be more alert being able to sit up in bed and give a convoluted but more accurate history during admission. He appeared comfortable and plans were to continue treatment for both CHF and COPD exacerbation. Patient is a full code. Review of Systems Narrative: 13 point review of systems otherwise unrevealing or stable. Patient does have chronic disabling medical problems with his obesity. Patient does have a history of atrial fibrillation and does have tachycardia presently stating that he is on Eliquis which may not be on his medication list. [facility] All Active Problems (Updated 10/03/21 @ 17:39 by Davin Green) CHF (congestive heart failure) (Acute) COPD (chronic obstructive pulmonary disease) (Chronic) Pneumonia (Acute) 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 2 diabetes mellitus (Chronic ~10/2019) Atrial fibrillation (Chronic) Psoriasis (Chronic) Tinea pedis (Acute 10/29/20) [facility] [place] Disease Vitamin B12 deficiency (Chronic) Abnormal nuclear stress test (Acute) Stasis dermatitis of both legs (Acute) CKD (chronic kidney disease) (Acute) Essential hypertension (Chronic) Type 2 diabetes mellitus (Chronic) Venous insufficiency (Chronic) COPD (chronic obstructive pulmonary disease) with emphysema (Chronic) Obesity (Chronic) Hyperlipidemia, unspecified (Chronic) Tobacco use disorder (Chronic) Medical History Anemia Hypothyroidism NSTEMI (non-ST elevated myocardial infarction) Sepsis syndrome Surgical History Colonoscopy - MAC (11/10/16) Orchiectomy, Radical Left, s/p trauma Repair, ACL Right-Age 17 Family History Father , MA? at age 79. Essential hypertension Myocardial infarction Maternal Aunt Neoplasm Adnexa NOS Maternal Grandmother Neoplasm Adnexa NOS Mother , CVA & PNA at age 81. Essential hypertension Stroke Paternal Grandfather Myocardial infarction Social History Smoking/Tobacco Use Status: Current every day Tobacco Type: cigarettes Smoking packs per day: 0.5 Smoking cigarettes per day: 10.0 Years smoked: 40 Smoking pack-years: 20.00 Smoking risk assessment performed?: Yes Alcohol Intake: current Alcohol Intake frequency: a few times a month Drug use: Never Substance use type: does not use Adopted: No Caregiver/Support person: No Household members: spouse, family and children Number of Children: 2 number of grandchildren: 4 Communication Needs: None Education Level: college Details: Some College Do you need help understanding health information?: Rarely Pets and animals: No Sexually active: No Do you think of yourself as: straight/heterosexual Current gender identity: male What is your relationship status?: How often do you talk on the phone with friends or family?: once per week How often do you get together with friends or relatives?: once per week Do you belong to any clubs or organized social groups?: no Panel score (0-1 are the most socially isolated patients): 1 What type of physical activity do you participate in: resistance training Duration: < 15 minutes/day Frequency: 1-2 times per week Chantell/Adventism: Confucianism Special chantell needs: No Seatbelt use: always Drive intox or ride w/intox lyft driver: No Do you feel safe at home: Yes Do you feel safe in your relationship?: Yes Meds Allergies and Home Medications Allergies Allergy/AdvReac Type Severity Reaction Status Date / Time shellfish derived Allergy Intermediate Hives Verified 10/02/21 18:20 house dust Allergy Mild Verified 10/02/21 18:20 hay fever Allergy Mild runny nose Uncoded 10/02/21 18:20 and cough Home Medications Medication Instructions Recorded Confirmed Type blood-glucose meter (OneTouch #1 ea 11/02/19 10/02/21 Rx UltraMini kit) blood sugar diagnostic (Blood #100 ea 12/07/19 10/02/21 Rx Glucose Test strips) lancets #100 ea 12/07/19 10/02/21 Rx comp.stocking,knee,long,medium #2 units 06/01/20 10/02/21 Rx aspirin 81 mg tablet,delayed 81 mg PO DAILY 08/07/20 10/02/21 History release calcium carbonate 500 mg calcium 500 mg PO DAILY 08/07/20 10/02/21 History (1,250 mg) tablet (Calcium 500) cinnamon bark 500 mg capsule 500 mg PO DAILY 08/07/20 10/02/21 History magnesium oxide 250 mg PO DAILY 08/07/20 10/02/21 History ammonium lactate 12 % topical cream 1 applic topical QD-BID PRN dry 08/17/20 10/02/21 Rx skin #140 grams cyanocobalamin (vitamin B-12) 1,000 mcg PO DAILY #90 tab-caps 08/17/20 10/02/21 Rx 1,000 mcg tablet atorvastatin 10 mg tablet 10 mg PO QPM #90 tabs 10/11/20 10/02/21 Rx betamethasone valerate 0.1 % 1 applic topical QD-BID PRN High 11/16/20 10/02/21 Rx topical ointment Potency (Group 3) topical steroid #45 grams terbinafine HCl 1 % topical cream 1 applic topical .every other day 11/16/20 10/02/21 History (Antifungal (terbinafine)) glipizide 5 mg tablet, extended 5 mg PO DAILY #90 tab-caps 12/17/20 10/02/21 Rx release 24 hr metformin 500 mg tablet 500 mg PO DAILY #90 tab-caps 12/24/20 10/02/21 Rx triamcinolone acetonide 0.1 % 1 applic topical DAILY 12/24/20 10/02/21 History topical ointment apixaban 5 mg tablet (Eliquis) 5 mg PO BID #60 tabs 01/22/21 10/02/21 Rx metoprolol succinate 50 mg 50 mg PO DAILY #90 tabs 01/22/21 10/02/21 Rx tablet,extended release 24 hr albuterol sulfate 90 mcg/actuation 2 puff inhalation QID PRN SOB #18 08/05/21 10/02/21 Rx aerosol inhaler grams albuterol sulfate 2.5 mg/3 mL 2.5 mg (3 mL) inhalation Q4H PRN 09/13/21 10/02/21 Rx (0.083 %) solution for nebulization shortness of breath or wheezing #90 mL nystatin 100,000 unit/gram topical 1 applic topical BID #30 grams 09/13/21 10/02/21 Rx powder furosemide 20 mg tablet See Rx Instructions .Route 09/30/21 10/02/21 Rx .COMPLEX #90 tabs prednisone 20 mg tablet 40 mg PO .daily in AM #14 tabs 09/30/21 10/02/21 Rx Exam Narrative Exam Narrative: General: Patient appears older than stated age, sitting up in bed with BiPAP speaking through the mask and appearing overall comfortable. He is alert and oriented at least to person place. He is in no acute distress. HEENT: Normocephalic, eyes with pupils equal and reactive to light symmetrically, extraocular movement intact and sclera anicteric. Oropharynx with dry mucosa. Neck: Supple without JVD. Back: Stooped posture without CVA tenderness. Lungs: Bronchovesicular breath sounds diffusely with diffuse expiratory wheeze and slight increased expiratory phase but no focalizing rales or rhonchi. Heart: Tachycardic with irregular rhythm. No murmur or gallop appreciated. Abdomen: Obese contour, soft and nontender to palpation with no palpable hepatosplenomegaly. Genitalia/rectal: Exam deferred. Extremities: Chronic nonpitting but hard 2+ edema over both lower extremities with hyperpigmented skin, ulcerations without active drainage noted but wrapped in dry dressing, loss of hair. (Patient has been in Unna boots recently). No cyanosis. Skin: Normal color, warm and dry except for skin changes over lower extremities. Neuro: Cranial nerves II through XII grossly intact, no focalizing motor deficits. Decreased sensation lower extremities. Psych: Slightly anxious with normal mood. Pressured speech. No abnormal thought processes. Remote and recent memory intact. Results Imaging Imaging Studies: Exam: XR Chest Exam date and time: 10/02/2021 7:09 PM Age: 70 years old Clinical indication: Other: SOB, chf v copd v pneumonia TECHNIQUE: Imaging protocol: Radiologic exam of the chest. Views: 1 view. COMPARISON: CT CHEST LUNG CANCER SCREEN 06/24/2021 8:56 AM FINDINGS: Limitations: The exam is limited by body habitus, underpenetration, overlying leads. Lungs: New opacification of the right mid and lower lung zones, likely mid and/or lower lobe volume loss and layering pleural effusion. In the appropriate setting, consider pneumonia or neoplasm. Pleural spaces: See Lungs finding. Heart/Mediastinum: Top-normal heart size. Borderline perihilar vascular fullness, likely accentuated by technique. Bones/joints: Unremarkable. IMPRESSION: 1. New opacification of the right mid and lower lung zones, likely mid and/or lower lobe volume loss and layering pleural effusion. In the appropriate setting, consider pneumonia or neoplasm. 2. Top-normal heart size. Borderline perihilar vascular fullness, likely accentuated by technique. Labs Result diagrams: 10/03/21 06:02 10/03/21 06:02 Labs: Laboratory Results - last 24 hr 10/02/21 10/02/21 10/02/21 18:27 18:27 18:27 WBC 17.66 H RBC 4.91 Hgb 14.5 Hct 45.3 MCV 92 MCH 29.5 MCHC 32.0 RDW 14.8 H Plt Count 336 MPV 9.8 Immature Gran % 0.3 Neutrophils % 90.6 Lymphocytes % 3.9 Monocytes % 5.0 Eosinophils % 0.1 Basophils % 0.1 Nucleated RBC % 0.0 Absolute Neutrophils 16.00 H Absolute Lymphocytes 0.69 L Absolute Monocytes 0.88 H Absolute Eosinophils 0.02 Absolute Basophils 0.02 PT INR APTT VBG pH VBG pCO2 VBG pO2 VBG HCO3 VBG Total CO2 VBG O2 Saturation VBG Base Excess Sodium 140 Potassium 4.9 Chloride 102 Carbon Dioxide 31.5 Anion Gap 6.5 BUN 30 H Creatinine 1.6 H Estimated GFR/1.73 m2 43.07 Glucose 123 H Calcium 9.4 Total Bilirubin 1.4 H AST 38 H ALT 37 Alkaline Phosphatase 56 Troponin I 62 H* NT-Pro-B Natriuret Pep 2228 H Total Protein 8.7 H Albumin 3.7 Urine Color Urine Clarity Urine pH Ur Specific [place] Urine Protein Urine Ketones Urine Blood Urine Nitrite Urine Bilirubin Urine Urobilinogen Ur Leukocyte Esterase Urine RBC Urine WBC Ur Epithelial Cells Urine Crystals Urine Bacteria Urine Mucus Ur Culture Indicated? Urine Glucose COVID-19 Source SARS-CoV-2 (PCR) Influenza Type A (PCR) Influenza Type B (PCR) RSV (PCR) 10/02/21 10/02/21 10/02/21 18:27 18:43 20:05 WBC RBC Hgb Hct MCV MCH MCHC RDW Plt Count MPV Immature Gran % Neutrophils % Lymphocytes % Monocytes % Eosinophils % Basophils % Nucleated RBC % Absolute Neutrophils Absolute Lymphocytes Absolute Monocytes Absolute Eosinophils Absolute Basophils PT 13.3 H INR 1.3 H APTT 23.2 VBG pH VBG pCO2 VBG pO2 VBG HCO3 VBG Total CO2 VBG O2 Saturation VBG Base Excess Sodium Potassium Chloride Carbon Dioxide Anion Gap BUN Creatinine Estimated GFR/1.73 m2 Glucose Calcium Total Bilirubin AST ALT Alkaline Phosphatase Troponin I NT-Pro-B Natriuret Pep Total Protein Albumin Urine Color Yellow Urine Clarity Clear Urine pH 5.5 Ur Specific [place] 1.025 Urine Protein Trace H Urine Ketones Negative Urine Blood Trace-intact H Urine Nitrite Negative Urine Bilirubin Negative Urine Urobilinogen 0.2 Ur Leukocyte Esterase Negative Urine RBC 0-2 Urine WBC Negative Ur Epithelial Cells Negative Urine Crystals Urine Bacteria Negative Urine Mucus Negative Ur Culture Indicated? No Urine Glucose Negative COVID-19 Source Nasopharynx SARS-CoV-2 (PCR) Negative Influenza Type A (PCR) Negative Influenza Type B (PCR) Negative RSV (PCR) Negative 10/02/21 10/02/21 10/02/21 20:18 20:30 22:43 WBC RBC Hgb Hct MCV MCH MCHC RDW Plt Count MPV Immature Gran % Neutrophils % Lymphocytes % Monocytes % Eosinophils % Basophils % Nucleated RBC % Absolute Neutrophils Absolute Lymphocytes Absolute Monocytes Absolute Eosinophils Absolute Basophils PT INR APTT VBG pH 7.28 L 7.23 L VBG pCO2 65 H* 74 H* VBG pO2 118 62 VBG HCO3 30 H 31 H VBG Total CO2 28 29 VBG O2 Saturation 97 86 VBG Base Excess 3 3 Sodium Potassium Chloride Carbon Dioxide Anion Gap BUN Creatinine Estimated GFR/1.73 m2 Glucose Calcium Total Bilirubin AST ALT Alkaline Phosphatase Troponin I 84 H* NT-Pro-B Natriuret Pep Total Protein Albumin Urine Color Urine Clarity Urine pH Ur Specific [place] Urine Protein Urine Ketones Urine Blood Urine Nitrite Urine Bilirubin Urine Urobilinogen Ur Leukocyte Esterase Urine RBC Urine WBC Ur Epithelial Cells Urine Crystals Urine Bacteria Urine Mucus Ur Culture Indicated? Urine Glucose COVID-19 Source SARS-CoV-2 (PCR) Influenza Type A (PCR) Influenza Type B (PCR) RSV (PCR) Last Vital Signs Temp 36.2 C L 10/03/21 01:20 Pulse 120 H 10/03/21 01:20 Resp 20 10/03/21 01:20 BP 137/80 10/03/21 01:20 Pulse Ox 97 10/03/21 01:20
[2021-10-03] MEDS: Metoprolol 25 MG TAB PO ×4 (02:33→21:24)
[2021-10-03] MEDS: Albuterol/Ipratropium 3 ML UPD VIAL UPD ×3 (02:35→21:25)
[2021-10-03] MEDS: methylPREDNISolone SUCC 125 MG VIAL 80 MG IVP (05:37)
[2021-10-03 07:09] LABS: Abs Immature Grans 0.12 10^3/uL (0.0-0.06); Absolute Basophil Count 0.02 10^3/uL (0.0-0.2); Basophils % 0.1; HCT 44.9 % (40.0-50.0); Immature Grans % 0.7; Lymphocytes % 4.3; MCH 29.5 pg (27.0-33.0); MCHC 31.2 % (32.0-36.0); MCV 95 fL (80-95); MPV 9.7 fL (8.0-11.0); Monocytes % 3.6; Neutrophils % 91.3; Platelet Count 266 10^3/uL (130-400); RBC 4.74 10^6/uL (4.36-5.78); RDW 14.9 % (11.8-14.1); RDW-SD 51.5 fL; WBC 16.56 10^3/uL (4.4-10.8)
[2021-10-03 07:27] LABS: Absolute Lymphocyte Count 0.71 10^3/uL (1.2-3.4); Absolute Neutrophil Count 15.12 10^3/uL (1.2-6.7)
--- NOTE | 2021-10-03 07:29 | WOUNDCONS_ITS ---
- If Service Date Differs Date of service: 10/03/21 Time of Service: 13:00 Wound Initial Evaluation Narrative: Patient is a 70 yom, he presents to the ED, after several weeks of what he reports to be worsening shortness of breath. Besides the admission diagnosis of CHF, he has co morbidities of DM2, obesity, history of statis ulcers on the bilateral legs that patient state has been present for the last 2-3 years. Patient is currently on BI-PAP for worsening CO 2 retention. He reports to this nurse, that he has been seeing his PCP Mayda,(cannot recall her last name) at [facility] , for tx of these wounds. He had just completed a 1 week course of UNNA boots Thursday, in which he reported that there was no improvement. Course of treatment with goals were discussed with patient and agreed upon. He consents to the wound consult. Patient H&P, labs and allergies were reviewed. Plus patient concerns were discussed with the patient. He signs consent for the wound consult. - Wound Left Lower Tib/Fib(lower leg) Wound Type: Statis Ulcer Wound General Appearance: Reddened, Draining Wound Bed Greatest Portion: Dusky Red Wound Surrounding Tissue Appearance: Purple Wound Length: 32 cm Wound Width: 47.6 cm Wound Depth: 0.1 cm Wound Drainage Amount: Large Wound Drainage Odor: Strong Wound Drainage Description: Serous, Brown Wound Topical Solution/Irrigant: Saline Irrigant Wound Debridement Method: Mechanical (Debrisoft sponge) Wound Debridement Result: Other ( tissue removed leaving taut dark red purple skin underneath) Wound Debridement Amount of Tissue Removed: Moderate Right Lower Tib/Fib(lower leg) Wound Type: Statis Ulcer Wound General Appearance: Reddened, Draining, Unapproximated Wound Bed Greatest Portion: Dusky Red Wound Surrounding Tissue Appearance: Dark Red, Purple Wound Length: 29.5 cm Wound Width: 47 cm Wound Depth: 0.1 cm Wound Drainage Amount: Moderate Wound Drainage Odor: Strong Wound Drainage Description: Serous, Brown Wound Topical Solution/Irrigant: Saline Irrigant Wound Debridement Method: Mechanical (Debrisoft sponge) Wound Debridement Result: Other (large amount of skin removed, skin is dark and taut underneath) - Circulation, Sensation, Motion Edema Degree: 2+ (brawny) Peripheral Pulse Strength: Weak Capillary Refill: Less than 3 seconds Sensation Description: Within Normal Limits Skin Temperature: Cool Skin Color: Dusky Additional Other Comments: Patient denied neuropathy in both extremities - Pain Pain Level: 0 Additional Other Comments: Patient denied pain. Patient with several co-morbidities. He has had statis ulcers on his legs for an extended period of time. 2 to 3 years per the patient. He had just finished a trial of Unna boots, that the patient stated did not make any change. Noted that he had had soaked bed pads and a puddle of exudate on the floor at the patients bedside. Also patients socks were saturated as well. Goal right now is to control exudate and apply compression to reduce the amount of edema in his legs as to allow the ulcers on his legs to heal. - Photo Photo: - Treatment/Dressing Change Topicals/Ointments: None Cleanse With: Cleanser with Surfactant, Debrisoft Dressing Types: Elastic Bandage, Kerlix (Gauze Roll), Other (Poly mem) - Recomendation Recomendation:: Both Legs [place] both legs with Equous wound house cleaner and allow to dwell for 2 minutes. Scrub legs with Debrisoft sponge. Apply Poly mem 4X4 dressings to the open areas of skin to absorb exudate. Secure with Kerlix. Apply levi wraps for compression over wrapping 50% to just below the knee. Change daily or PRN if saturated. Physcian/Nurse Practioner Notified: Yes (Quin Shah) Treatment Time - Time Total Time Spent with Patient: 1:45 hours - Patient Will be Seen Weekly Treatment: daily
[2021-10-03 07:32] LABS: ALT 30 U/L (16-63); AST 23 U/L (15-37); Albumin 3.3 g/dL (3.4-5.0); Alkaline Phosphatase 54 U/L (46-116); Anion Gap 9.1 mmol/L (3-11); BUN 34 mg/dL (7-18); Bilirubin, Total 1.4 mg/dL (0.2-1.0); CO2 29.9 mmol/L (21.0-32.0); Calcium 9.3 mg/dL (8.5-10.1); Chloride 102 mmol/L (98-107); Estimated GFR 33.29 (mL/min/1.73m2); Glucose 132 mg/dL (74-106); Potassium 4.8 mmol/L (3.5-5.1); Sodium 141 mmol/L (136-145); Total Protein 8.2 g/dL (6.4-8.2)
[2021-10-03 07:34] LABS: Troponin I 73 ng/L (<or=60)
[2021-10-03 07:39] LABS: Magnesium 2.5 mg/dL (1.8-2.4); TSH (W/Ref FT4) 2.98 uIU/mL (0.36-3.74)
[2021-10-03] MEDS: Cyanocobalamin 100 MCG TABLET 1000 MCG PO (08:42)
[2021-10-03] MEDS: Furosemide 40 MG/4 ML VIAL IVP ×2 (08:43→16:33)
[2021-10-03] MEDS: Magnesium Oxide 400 MG TAB 200 MG PO (08:43)
[2021-10-03] MEDS: Aspirin E.C. 81 MG TABEC PO (08:43)
[2021-10-03] MEDS: Apixaban 5 MG TAB PO ×2 (08:43→21:24)
[2021-10-03] MEDS: Normal Saline Flush 10 ML SYR IVP ×4 (08:45→21:45)
[2021-10-03] MEDS: Insulin Aspart 300 UNITS/3 ML PEN SC ×3 (11:58→21:25)
--- NOTE | 2021-10-03 12:29 | INITIAL_ITS ---
- If Service Date Differs Date of service: 10/03/21 Time of Service: 12:29 Care Management Initial Assess REASON FOR HOSPITALIZATION:: CHF, COPD, Pneumonia PAST MEDICAL HISTORY/PAST SURGICAL HISTORY:: All Active Problems . CHF (congestive heart failure) (Chronic). COPD (chronic obstructive pulmonary disease) (Chronic). Pneumonia (Acute). 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 Atrial fibrillation (Chronic). Psoriasis (Chronic). Tinea pedis (Acute 10/29/20). [facility] [place] [facility] Disease. Vitamin B12 deficiency (Chronic). Abnormal nuclear stress test (Acute). Stasis dermatitis of both legs (Acute). CKD (chronic kidney disease) (Acute). Essential hypertension (Chronic). Type 2 diabetes mellitus (Chronic). Venous insufficiency (Chronic). COPD (chronic obstructive pulmonary disease) with emphysema (Chronic). Obesity (Chronic). Hyperlipidemia, unspecified (Chronic). Tobacco use disorder (Chronic). Medical History . Anemia. Hypothyroidism. NSTEMI (non-ST elevated myocardial infarction). Sepsis syndrome. Surgical History . Colonoscopy - MAC (11/10/16). Orchiectomy, Radical. Left, s/p trauma. Repair, ACL. Right-Age 17 PREVIOUS FUNCTIONAL STATUS/SOCIAL/FAMILY SUPPORTS:: Mejia lives in [facility] with his , Marifer, their 21 year old son, Сергей, and his [id number]. Mejia and Marifer also have a daughter Radha who lives locally and four grandchildren. 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 Mejia enjoys playing golf, watching his grandkids play baseball, and doing yard work. He is independent at baseline. CURRENT FUNCTIONAL STATUS:: Mejia was siting up in bed when CM met with him. He was pleasant and talkative and easily engaged with CM. Mejia shared the history of the wound on his length which apparently began with scratches from thorns he got while mowing the lawn quite some time ago. He also has breathing issues with COPD, CHF and pneumonia and was wearing Bipap during the visit. ADVANCE DIRECTIVES:: none on file Has patient been provided with info about the portal/API?: Yes Did the patient sign up for the portal?: No CODE STATUS:: Full Code INSURANCE COVERAGE / FINANCIAL ISSUES:: Medicare CURRENT HOME/COMMUNITY SERVICES/EQUIPMENT:: none PRIMARY CARE PHYSICIAN:: Martha Valera POTENTIAL DISCHARGE NEEDS:: Follow up with PCP, Pulmonology and plan of care PATIENT/FAMILY EDUCATION NEEDS:: Review of discharge instructions, limitations, follow up plan, activity, Ask Me Three TRANSPORTATION:: via private vehicle with friend/family PLAN:: Demetrio will likely be discharged home, possible with new home health services. He will follow up with his PCP and plan of care and transport with family. CM will continue to support Mejia and assess for discharge needs.
[2021-10-03] MEDS: cefTRIAXone 1 GM/50 ML BAG IV (17:17)
[2021-10-03] MEDS: AZITHROMYCIN 500 MG in Normal Saline 250 ML 250 MG IVPB (18:27)
[2021-10-03] MEDS: Atorvastatin 10 MG TAB PO (21:24)
[2021-10-03] MEDS: Nystatin POWDER 60 GM JAR TP (21:26)
[2021-10-03] MEDS: cefTRIAXone 2 GM/50 ML BAG IVPB (21:34)
[2021-10-04] VITALS (12 sets, daily range): BP systolic 104–131; BP diastolic 66–88; PULSE 58–123; RESP 1–25; TEMP 36–36.5; O2SAT 95–96
[2021-10-04] MEDS: Metoprolol 25 MG TAB PO ×4 (02:03→21:23)
[2021-10-04] MEDS: Albuterol/Ipratropium 3 ML UPD VIAL UPD ×4 (02:03→21:25)
[2021-10-04 07:13] LABS: Abs Immature Grans 0.06 10^3/uL (0.0-0.06); Absolute Eosinophil Count 0.04 10^3/uL (0.0-0.7); Absolute Lymphocyte Count 1.34 10^3/uL (1.2-3.4); Absolute Monocyte Count 0.98 10^3/uL (0.1-0.8); Basophils % 0.1; Eosinophils % 0.3; HCT 44.8 % (40.0-50.0); HGB 13.5 g/dL (13.5-17.5); Immature Grans % 0.4; MCH 28.3 pg (27.0-33.0); MCHC 30.1 % (32.0-36.0); MCV 94 fL (80-95); MPV 9.5 fL (8.0-11.0); Monocytes % 7.3; Neutrophils % 81.9; Platelet Count 285 10^3/uL (130-400); RBC 4.77 10^6/uL (4.36-5.78); RDW 14.7 % (11.8-14.1); RDW-SD 50.7 fL; WBC 13.38 10^3/uL (4.4-10.8)
[2021-10-04 07:14] LABS: Absolute Basophil Count 0.01 10^3/uL (0.0-0.2); Absolute Neutrophil Count 10.96 10^3/uL (1.2-6.7)
[2021-10-04 07:28] LABS: Anion Gap 5.3 mmol/L (3-11); BUN 53 mg/dL (7-18); CO2 32.7 mmol/L (21.0-32.0); CREATININE 1.9 mg/dL (0.70-1.30); Calcium 9.3 mg/dL (8.5-10.1); Chloride 99 mmol/L (98-107); Estimated GFR 35.32 (mL/min/1.73m2); Glucose 126 mg/dL (74-106); Potassium 4.1 mmol/L (3.5-5.1); Sodium 137 mmol/L (136-145)
--- NOTE | 2021-10-04 08:59 | NUR.NOTE ---
ENGINEERING LIBRARIAN informs Med[employer]oracle ebs architect that patient's telemetry is not working because it needs a battery. Notice of same was given at 07:30 and then again at 08:30 without a new battery being installed in tar processing technician.Nursing Note:
[2021-10-04] MEDS: Cyanocobalamin 100 MCG TABLET 1000 MCG PO (09:08)
[2021-10-04] MEDS: Normal Saline Flush 10 ML SYR IVP ×3 (09:08→18:40)
[2021-10-04] MEDS: Aspirin E.C. 81 MG TABEC PO (09:08)
[2021-10-04] MEDS: Apixaban 5 MG TAB PO (09:08)
[2021-10-04] MEDS: Furosemide 40 MG/4 ML VIAL IVP ×2 (09:08→16:14)
[2021-10-04] MEDS: predniSONE 20 MG TAB 40 MG PO (09:08)
[2021-10-04] MEDS: Triamcinolone 0.1% OINT 15 GM TUBE TP (09:09)
[2021-10-04] MEDS: Nystatin POWDER 60 GM JAR TP ×2 (09:09→21:25)
--- NOTE | 2021-10-04 09:42 | W.INDIABCONS ---
Date of service: 10/04/21 Time of Service: 09:42 Diabetes Inpatient Consult Reason for Visit: dm DESCRIPTION/ASSESSMENT: 70 year old male admitted with CHF, chronic open skin wounds, DM2, HTN. Home DM meds: glipizde 5 mg qd, 500 mg metformin. Most recent A1C: 6.3% five months ago indicates good glycemic management. BMI indicates class 2 obesity. Will need liquid protein supplementation to meet increased protein needs for optimal wound healing. INTERVENTION: Continue Dm diet 1 oz Liquid protein TID MVI, 500 mg Vit C BID, 220 mg zinc sulfate x 14 days PLAN: Will follow po intake, labs, weight Time Spent in Nutritional Counseling and Treatment: 0
--- NOTE | 2021-10-04 10:08 | PGE_ITS ---
Date of Service Date of service: 10/04/21 Time of Service: 10:08 Assessment and Plan Assessment and plan (1) Pleural effusion: Status: Acute Assessment and plan: tapped by surgery investigations pending repeat cxr in am (2) Bacteremia due to Gram-negative bacteria: Status: Acute Assessment and plan: awaiting ID and sensitivities. broadened antibiotic to cover for pseudomas as lung source is suspected with gram neg jake bacteremia repeat blood cultures pending obtain echo Thursday when available (3) COPD (chronic obstructive pulmonary disease): Status: Chronic Assessment and plan: COPD with acute exacerbation most likely. Down stepped to prednisone burst yesterday, continue nebulizer treatments along with BiPAP as needed for CO2 retention. pulmonary consult with recommendation to stop steroid, (4) Pneumonia: Status: Acute Assessment and plan: antibiotics broadened with zosyn, continue azithromycin day 3. pulmonary consult recs for thoracentesis which was performed by surgery, pleural fluid sent for cytology and evaluation per pulmonary recs (5) Atrial fibrillation: Status: Chronic Assessment and plan: Atrial fibrillation with rapid ventricular response with stress of acute respiratory disease. continue metoprolol to 25 mg p.o. every 6 hours and continue Eliquis (hold tonight after thoracentesis, cxr in am and if clear will resume). Cardiac monitoring with troponin trending. anticoagulated on eliquis (6) Type 2 diabetes mellitus: Status: Chronic Assessment and plan: Glucometer before meals and at bedtime with an insulin coverage while hospitalized holding oral therapy. Patient may have worsening hyperglycemia on IV steroids. discussed with Dr Garcia Qualifiers: Diabetes mellitus complication status: with hyperglycemia Diabetes mellitus intermediate manager insulin use: without longterm use Qualified Code(s): E11.65 - Type 2 diabetes mellitus with hyperglycemia Subjective Subjective Patient reports: no new complaints, feels better, tolerating liquids well, tolerating a regular diet, voiding w/o difficulty, shortness of breath and afebrile Exam Const General: cooperative, comfortable and no acute distress Nutritional Appearance: obese Orientation: alert, awake and oriented x3 HENMT Head: normal to inspection, normocephalic and atraumatic Neck Neck: normal visual inspection, full ROM and no JVD Chest Chest: normal inspection of the chest Resp Effort & Inspection: normal respiratory effort Auscultation: diminished lung sounds, no rhonchi and no wheezes Cardio Rate: regular rate Rhythm: regular rhythm GI Inspection: normal to inspection Palpation: soft Skin General skin exam: no rashes or lesions noted Neuro General: patient alert, patient awake and patient oriented x3 Extrem General: normal to inspection and full ROM Objective Last Vital Signs Temp 36 C L 10/04/21 07:32 Pulse 59 L 10/04/21 07:36 Resp 25 H 10/04/21 07:32 BP 106/66 10/04/21 07:32 Pulse Ox 95 10/04/21 07:36 Laboratory Results - last 24 hr 10/04/21 10/04/21 06:31 06:31 WBC 13.38 H RBC 4.77 Hgb 13.5 Hct 44.8 MCV 94 MCH 28.3 MCHC 30.1 L RDW 14.7 H Plt Count 285 MPV 9.5 Immature Gran % 0.4 Neutrophils % 81.9 Lymphocytes % 10.0 Monocytes % 7.3 Eosinophils % 0.3 Basophils % 0.1 Nucleated RBC % 0.0 Absolute Neutrophils 10.96 H Absolute Lymphocytes 1.34 Absolute Monocytes 0.98 H Absolute Eosinophils 0.04 Absolute Basophils 0.01 Sodium 137 Potassium 4.1 Chloride 99 Carbon Dioxide 32.7 H Anion Gap 5.3 BUN 53 H Creatinine 1.9 H Estimated GFR/1.73 m2 35.32 Glucose 126 H Calcium 9.3
--- NOTE | 2021-10-04 12:08 | PHA.REVIEW ---
Pharmacy Admission Review - Admission Clinical Review (Last Reviewed 10/03/21 @ 01:27 by Davin Green) Bacteremia due to Gram-negative bacteria (Acute) CHF (congestive heart failure) (Acute) Pneumonia (Acute) shellfish derived Allergy (Intermediate, Verified 10/02/21 18:20) Hives house dust Allergy (Mild, Verified 10/02/21 18:20) hay fever Allergy (Mild, Uncoded 10/02/21 18:20) runny nose and cough Resuscitation Status Full Code Height 5 ft 9 in Weight 117.8 kg - Renal Dosing Renal Dosing: BUN 53 mg/dL (7-18) H 10/04/21 06:31 Creatinine 1.9 mg/dL (0.70-1.30) H 10/04/21 06:31 Medications needing adjustments: N/A (crcl = 36) - Anticoagulation Anticoagulation: Hgb 13.5 g/dL (13.5-17.5) 10/04/21 06:31 Hct 44.8 % (40.0-50.0) 10/04/21 06:31 Plt Count 285 10^3/uL (130-400) 10/04/21 06:31 INR 1.3 (0.9-1.1) H 10/02/21 18:27 Creatinine 1.9 mg/dL (0.70-1.30) H 10/04/21 06:31 DVT Prophylaxis: Reviewed Medications: Apixaban Therapeutic Anticoagulation: Reviewed Medications: Apixaban (on apixiban 5 mg BID (AFib)) - Opiate Usage Evaluate Pain Scale/Pains Meds: N/A - Relevant Labs Sodium 137 mmol/L (136-145) 10/04/21 06:31 Potassium 4.1 mmol/L (3.5-5.1) 10/04/21 06:31 Chloride 99 mmol/L (98-107) 10/04/21 06:31 Magnesium 2.5 mg/dL (1.8-2.4) H 10/03/21 06:02 Electrolytes, C-Reactive P, ESR: Reviewed - DM Control DM Control: Glucose 126 mg/dL (74-106) H 10/04/21 06:31 Finger Stick Blood Glucose 291 Finger Stick Blood Glucose 291 Finger Stick Blood Glucose 123 Finger Stick Blood Glucose 123 Insulin Dosing: Reviewed (A1c = 6.3% 05/09/21. does not use insulin at home (on metformin 500 mg daily, glipizide ER 5 mg daily). currently covered with insulin aspart sliding scale AC & HS. glucose = 126 this AM) - Heart Failure/UT Heart Failure/UT: Troponin I 73 ng/L (<or=60) H* 10/03/21 06:02 NT-Pro-B Natriuret Pep 2228 pg/mL (<300) H 10/02/21 18:27 EF%, MAURA's, B-Blockers, Diuretics: Reviewed - BP Control BP Control: Blood Pressure 106/66 Blood Pressure 125/88 If elevated: N/A - Qtc Review If Elevated: N/A (QTc = 484) - IV to PO Switch IV Medications: Reviewed - Home Meds Home Med List reviewed: Reviewed (glipizide, metformin not ordered - on insulin. mag oxide dc'd (mg = 2.5 yesterday). Lasix home dose 20 mg daily, increased to 40 mg IV BID. Metoprolol succ home dose = 50 mg daily, currently ordered: 25 mg lopressor Q6. Prednisone dc'd) Antibiotic Activity - Pharmacy Antibiotic Review Pharmacy Antibiotic Activity: Abx regimen adjustment - Antibiotic Information Antibiotic Review Info: current regimen: azithromycin 500 mg daily (started 10/02), zosyn 3.375 q6 (starting today). Ceftriaxone 2g daily dc'd
--- NOTE | 2021-10-04 12:47 | PUCON_ITS ---
General Date Of Service Date of service: 10/04/21 Time of Service: 12:47 Reason for Consult: Pleural Effusion Assessment and Plan Assessment and plan (1) COPD (chronic obstructive pulmonary disease): Status: Chronic (2) Pneumonia: Status: Acute (3) Bacteremia due to Gram-negative bacteria: Status: Acute (4) Recurrent infections: Status: Acute (5) CHF (congestive heart failure): Status: Acute (6) Atrial fibrillation: Status: Chronic (7) Pleural effusion: Status: Acute Assessment and plan: This is a chronically ill man with COPD, CHF and recurrent infections who is admitted with gram negative bacteremia thought to be due to a pneumonia. He has a right sided pleural effusion and a very small left sided effusion on ultrasound. I would recommend a diagnostic and therapeutic thoracentesis or the right pleural fluid in order to send for analysis. He is on Eliquis and so I would hold this for the thoracentesis. Personally, I hold A/C for 48 hours prior to a thoracentesis so it will make sense to reach out to surgery to perform this as I cannot do it today and I am not here over the weekend. Based on my POCUS, I do not have concern for a loculated effusion as I did not see septations and the fluids appeared simple.Given the gram negative rods, an alternative (non-lung) sounds should be evaluated, although he could be growing pseudomonas or klebsiella. Due to this gram stain, I would expand his antibiotic to Zosyn to cover for a potential pseudomonas (he has grown pseudomonas in past - skin). I do wonder why he has had so many issues with infections recently. He is diabetic, which certainly puts him at risk, but I will test for HIV and immunoglobulins to make sure there is no immunodeficiency aside from diabetes. His COPD is undermanaged given its severity, but I do not think he is having a significant COPD exacerbation and think most of his acute symptoms are due to infection and the effusion. He only uses albuterol nebs and HFA at home due to cost issues with maintenance inhalers. I will start him on Stiolto in hospital and will bring him samples from my clinic to have upon his discharge. I will also set him up to see me in clinic for management of his COPD. Right pleural effusion - recommend thoracenetesis - would call surgery for this - hold Eliquis - defer to surgery the length of time they would like this held for prior to thora - will send fluid for analysis - including cytology (I have placed orders for this except the cytology order which is paper form) Gram negative bacteremia - continue azithromycin - would escalate ceftriaxone to Zosyn - await speciation - consider skin as possible source? COPD - continue prn albuterol - continue standing Duonebs for now - start Stiolto - discontinue prednisone Recurrent infections - HIV testing - immunoglobulins History of Present Illness Narrative: This is a chronically ill 70 yo man with very severe COPD (FEV1 21%), CKD, CHF and diabetes who is admitted for a pneumonia that failed outpatient therapy. Her was given antibiotics as an outpatient and later prednisone, but he states after 3 days of taking prednisone he got much worse. He was found to have acute hypercapnea which was treated with a BiPAP. He does not have a formal diagnosis of NANCY that I can see, but this is likely. He had a CXR that shows a significant right sided effusion for which I was consulted. He has gram negative jake bacteremia (clean urine). He has had recurrent issues in the past few year with infections. He can think of 4 major infections that have landed him in the hospital in the last few years. He is not having pain. He does have a cough. Review of Systems All systems reviewed & are unremarkable except as noted in HPI and below PFSH All Active Problems (Updated 10/04/21 @ 14:23 by Jackie Burger MD) Recurrent infections (Acute) Pleural effusion (Acute) Bacteremia due to Gram-negative bacteria (Acute) CHF (congestive heart failure) (Acute) COPD (chronic obstructive pulmonary disease) (Chronic) Pneumonia (Acute) 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 2 diabetes mellitus (Chronic ~10/2019) Atrial fibrillation (Chronic) Psoriasis (Chronic) Tinea pedis (Acute 10/29/20) [facility] [place] Inf Disease Vitamin B12 deficiency (Chronic) Abnormal nuclear stress test (Acute) Stasis dermatitis of both legs (Acute) CKD (chronic kidney disease) (Acute) Essential hypertension (Chronic) Type 2 diabetes mellitus (Chronic) Venous insufficiency (Chronic) COPD (chronic obstructive pulmonary disease) with emphysema (Chronic) Obesity (Chronic) Hyperlipidemia, unspecified (Chronic) Tobacco use disorder (Chronic) Medical History Anemia Hypothyroidism NSTEMI (non-ST elevated myocardial infarction) Sepsis syndrome Surgical History Colonoscopy - MAC (11/10/16) Orchiectomy, Radical Left, s/p trauma Repair, ACL Right-Age 17 Family History Father , DC? at age 79. Essential hypertension Myocardial infarction Maternal Aunt Neoplasm Adnexa NOS Maternal Grandmother Neoplasm Adnexa NOS Mother , CVA & PNA at age 81. Essential hypertension Stroke Paternal Grandfather Myocardial infarction Social History Smoking/Tobacco Use Status: Current every day Tobacco Type: cigarettes Smoking packs per day: 0.5 Smoking cigarettes per day: 10.0 Years smoked: 40 Smoking pack-years: 20.00 Smoking risk assessment performed?: Yes Alcohol Intake: current Alcohol Intake frequency: a few times a month Drug use: Never Substance use type: does not use Adopted: No Caregiver/Support person: No Household members: spouse, family and children Number of Children: 2 number of grandchildren: 4 Communication Needs: None Education Level: college Details: Some College Do you need help understanding health information?: Rarely Pets and animals: No Sexually active: No Do you think of yourself as: straight/heterosexual Current gender identity: male What is your relationship status?: How often do you talk on the phone with friends or family?: once per week How often do you get together with friends or relatives?: once per week Do you belong to any clubs or organized social groups?: no Panel score (0-1 are the most socially isolated patients): 1 What type of physical activity do you participate in: resistance training Duration: < 15 minutes/day Frequency: 1-2 times per week Chantell/Presybeterian: Sabianist Special chantell needs: No Seatbelt use: always Drive intox or ride w/intox intermodal truck driver: No Do you feel safe at home: Yes Do you feel safe in your relationship?: Yes Visit Medication and Allergies Active Medications Generic Name Dose Route Start Last Admin Trade Name Freq PRN Reason Stop Dose Admin Acetaminophen 650 mg 10/03/21 01:09 Acetaminophen 325 Mg Tab PO Q4H PRN PRN Al Hydrox/Mg Hydrox/Simethicone 30 ml 10/03/21 01:09 Mylanta Suspension 30 Ml Cup PO Q2H PRN PRN Albuterol Sulfate 2.5 mg 10/03/21 01:09 Albuterol 2.5 Mg/3 Ml Inh Soln Vial UPD Q2H PRN PRN Albuterol/Ipratropium 3 ml 10/03/21 02:00 10/04/21 07:36 Albuterol/Ipratropium 3 Ml Upd Vial UPD 3 ml Q6H TAMARA Administration Ammonium Lactate 1 gm 10/03/21 07:21 Lachydrin 12% Lotion 225 Gm Btl TP BID PRN PRN dry skin Apixaban 5 mg 10/03/21 08:30 10/04/21 09:08 Apixaban 5 Mg Tab PO 5 mg BID TAMARA Administration Aspirin 81 mg 10/03/21 08:30 10/04/21 09:08 Aspirin E.C. 81 Mg Tabec PO 81 mg DAILY TAMARA Administration Atorvastatin Calcium 10 mg 10/03/21 20:00 10/03/21 21:24 Atorvastatin 10 Mg Tab PO 10 mg QPM TAMARA Administration Cyanocobalamin 1,000 mcg 10/03/21 08:30 10/04/21 09:08 Cyanocobalamin 100 Mcg Tablet PO 1,000 mcg DAILY TAMARA Administration Dextrose 0 gm 10/03/21 01:22 Glucose 40% Oral Solution 15 Gm/37.5 Gm Tube PO DIRECTED PRN Dextrose/Water 0 gm 10/03/21 01:22 Dextrose 50%-Water 25 Gm/50 Ml Syr IVP DIRECTED PRN Dimethicone/Zinc Oxide 0 gm 10/03/21 01:09 Jairo Protect Cream 142 Gm Tube TP PRN PRN Docusate Sodium 100 mg 10/03/21 01:09 Docusate Sodium 100 Mg Cap PO TID PRN PRN Furosemide 40 mg 10/03/21 08:00 10/04/21 09:08 Furosemide 40 Mg/4 Ml Vial IVP 40 mg BID@0800,1600 TAMARA Administration Sodium Chloride 500 mls @ 0 mls/hr 10/02/21 23:00 Saline 500ml Bag IV PRN PRN As Directed Azithromycin 500 mg/ Sodium 250 mls @ 250 mls/hr 10/03/21 18:00 10/03/21 19:55 Chloride IVPB Infused Q24H TAMARA Infusion Piperacillin Sod/Tazobactam 50 mls @ 100 mls/hr 10/04/21 13:00 Sod 3.375 gm/ Sodium Chloride IVPB Q6H [facility] Protocol IV Miscellaneous Supplies 1 each 10/02/21 23:00 Iv Access IV DIRECTED [facility] Insulin Aspart 0 units 10/03/21 07:30 10/04/21 09:07 Insulin Aspart 300 Units/3 Ml Pen SC Not Given AC & HS [facility] Protocol Magnesium Hydroxide 30 ml 10/03/21 01:09 Milk Of Magnesia 30 Ml Cup PO DAILY PRN PRN Metoprolol Tartrate 25 mg 10/03/21 02:00 10/04/21 09:08 Metoprolol 25 Mg Tab PO 25 mg Q6H TAMARA Administration Nicotine 14 mg 10/03/21 01:09 Nicotine 14 Mg/24 Hr Patch TD DAILY PRN PRN Nystatin 0 gm 10/03/21 08:30 10/04/21 09:09 Nystatin Powder 60 Gm Jar TP 1 applic BID TAMARA Administration Polyethylene Glycol 17 gm 10/03/21 01:09 Polyethylene Glycol 3350 17 Gm Packet PO DAILY PRN PRN Constipation Sodium Chloride 0 ml 10/02/21 23:00 10/04/21 09:08 Normal Saline Flush 10 Ml Syr IVP 10 ml PRN PRN Administration Terbinafine HCl 0 gm 10/04/21 10:00 10/04/21 12:46 Terbinafine 1% Cream 15 Gm Tube TP Not Given Q48H [facility] Triamcinolone Acetonide 0 gm 10/03/21 08:30 10/04/21 09:09 Triamcinolone 0.1% Oint 15 Gm Tube TP 15 g DAILY TAMARA Administration Allergies shellfish derived Allergy (Intermediate, Verified 10/02/21 18:20) Hives house dust Allergy (Mild, Verified 10/02/21 18:20) hay fever Allergy (Mild, Uncoded 10/02/21 18:20) runny nose and cough Exam Narrative Exam Narrative: POCUS: Limited exam to bilateral posterior lungs. Very small left sided pleural effusion. Moderate sized right sided pleural effusion with simple appearing fluid - no septations present to suggest loculation. Gen: NAD, normal respiratory effort, obese HENT: PERRL Chest: No respiratory distress, normal appearance of chest,diminished breath sounds throughout but absent RLL breath sounds. Heart: regular rate and rhythym, no murmurs, rubs or gallops Abdomen: Non-distended, soft, non tender Extremities: No clubbing, 3+ edema to knee, no cyanosis, rashes Neuro: AAOx3 , non focal Psych: cooperative, appropriate mental affect Results Last Vital Signs Temp 36 C L 10/04/21 07:32 Pulse 59 L 10/04/21 07:36 Resp 25 H 10/04/21 07:32 BP 106/66 10/04/21 07:32 Pulse Ox 95 10/04/21 07:36 Labs Result diagrams: 10/04/21 06:31 10/04/21 06:31 Labs: Laboratory Results - last 24 hr 10/04/21 10/04/21 06:31 06:31 WBC 13.38 H RBC 4.77 Hgb 13.5 Hct 44.8 MCV 94 MCH 28.3 MCHC 30.1 L RDW 14.7 H Plt Count 285 MPV 9.5 Immature Gran % 0.4 Neutrophils % 81.9 Lymphocytes % 10.0 Monocytes % 7.3 Eosinophils % 0.3 Basophils % 0.1 Nucleated RBC % 0.0 Absolute Neutrophils 10.96 H Absolute Lymphocytes 1.34 Absolute Monocytes 0.98 H Absolute Eosinophils 0.04 Absolute Basophils 0.01 Sodium 137 Potassium 4.1 Chloride 99 Carbon Dioxide 32.7 H Anion Gap 5.3 BUN 53 H Creatinine 1.9 H Estimated GFR/1.73 m2 35.32 Glucose 126 H Calcium 9.3 Imaging Chest x-ray: report reviewed and image reviewed
[2021-10-04] MEDS: Insulin Aspart 300 UNITS/3 ML PEN SC ×3 (12:55→21:25)
[2021-10-04] MEDS: PIPERACILLIN/TAZO 3.375 GM in Normal Saline 50 ML IVPB ×2 (13:48→21:24)
--- NOTE | 2021-10-04 14:29 | PDOC.CMPRO ---
- If Service Date Differs Date of service: 10/04/21 Time of Service: 14:29 Care Management Progress Note S/O: Demetrio remains inpatient, no change to overall plan. Pulmonology consulted; Dr. Castrejon's note states he will be started on stiolto while inpatient with samples provided for post discharge, and follow up with Pulmonology as well as with surgery for thoracentesis. CM continues to follow. A: 70 year old male admitted to [facility] 10/02/21 for CHF exacerbation, COPD exacerbation, pneumonia P: Demetrio will be discharged home, with new home health services; RN for wound care and diabetic management, COPD. He will follow up with his PCP and plan of care and transport with family. CM will continue to support Mejia and assess for discharge needs.
--- NOTE | 2021-10-04 15:30 | PAPNONF_PTH ---
PATIENT: Demetrio Artis LOC: U#:[id number] AGE/SX: 70/M ROOM: 206 RE10/02/[address]: Davin Green : 1950 BED: A DIS: 10/09/2021 SPEC #: [id number] RECD: 10/04/21 17:40 STATUS: TUCKER REQ #: [id number] KASSIE: 10/04/21 15:[address]: Davin Green DEPT: [facility] Cytology RECD BY: Mitali Regan ENTERED: 10/04/21 17:41 SP TYPE: REBECCA PEÑA DR: MD Martha Chung APRN Annick Kaufman, MD Tissues: 1 - BODY FLUID CYTO(NOT S/U/N/EM)[facility] Procedures: BODY FLUID CYTO(NOT SPU/UR/NIP/ENDOM)[facility] Comments: [id number] (TOTAL VOLUME = 1050 ml)
--- NOTE | 2021-10-04 15:30 | DI.RAD_ITS ---
Exam(s) XR PORTABLE CHEST AP EXAM: XR PORTABLE CHEST AP CLINICAL HISTORY: POST THOROCENTESIS TECHNIQUE: 2D digital imaging was performed. COMPARISON: CT CT CHEST LUNG CANCER SCREEN from 06/24/2021 CR,XR XR PORTABLE CHEST AP from 10/02/2021 FINDINGS: Exam somewhat limited by patient body habitus and under penetration. Patient is status post thoracentesis. There is only a trace right pleural effusion, significantly de creased from prior. There is no pneumothorax. There may be a tiny left pleural effusion. No infilt rates are seen. The heart appears mildly enlarged, stable. IMPRESSION: Impression significant decrease in right pleural effusion status post thoracentesis. No pneumothorax . DATA REPOSITORY: RADIATION DOSE DELIVERED:
--- NOTE | 2021-10-04 15:41 | W.SURGCON ---
Date of service: 10/04/21 Time of Service: 15:42 Assessment and Plan Assessment and plan (1) Pleural effusion: Status: Acute Assessment and plan: Mr. Artis is a 70 year old male with a moderate/large pleural effusion on the right side. Pulmonology requested a thoracenthesis for diagnostic/therapeutic purposes. Thoracenthesis explained to patient as well as risks and benefits He agrees to the procedure History of Present Illness Narrative: Mr. Artis is a pleasant 70 year old male who was admitted on 10/02 with a right pleural effusion and pneumonia. His blood cultures were positive. Pulmonology was consultedm who requested a therapeutic/diagnostic thoracenthesis. Consults Consult date: 10/04/21 Requesting physician: Quin Shah Review of Systems Constitutional Constitutional: Denies fever(s), Denies headache(s), Denies weakness and Denies weight loss Eyes Eyes: Denies change in vision ENT Ears, Nose, Mouth, and Throat: Denies dysphagia, Denies headache(s) and Denies hoarseness Cardiovascular Cardiovascular: Denies chest pain, Denies chest pain at rest and Reports dyspnea Respiratory Respiratory: Reports cough and Reports dyspnea Gastrointestinal Gastrointestinal: Reports system reviewed and no additional complaints, except as documented and Denies dysphagia Genitourinary Genitourinary: Reports system reviewed and no additional complaints, except as documented Musculoskeletal Musculoskeletal: Reports system reviewed and no additional complaints, except as documented Integumentary/Breasts Skin/Breast: Reports system reviewed and no additional complaints, except as documented Neurologic Neurologic: Reports system reviewed and no additional complaints, except as documented, Denies headache(s) and Denies weakness Psychiatric Psychiatric: Reports system reviewed and no additional complaints, except as documented Endocrine Endocrine: Reports system reviewed and no additional complaints, except as documented PFSH All Active Problems Recurrent infections (Acute) Pleural effusion (Acute) Bacteremia due to Gram-negative bacteria (Acute) CHF (congestive heart failure) (Acute) COPD (chronic obstructive pulmonary disease) (Chronic) Pneumonia (Acute) 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 2 diabetes mellitus (Chronic ~10/2019) Atrial fibrillation (Chronic) Psoriasis (Chronic) Tinea pedis (Acute 10/29/20) [facility] [place] Inf Disease Vitamin B12 deficiency (Chronic) Abnormal nuclear stress test (Acute) Stasis dermatitis of both legs (Acute) CKD (chronic kidney disease) (Acute) Essential hypertension (Chronic) Type 2 diabetes mellitus (Chronic) Venous insufficiency (Chronic) COPD (chronic obstructive pulmonary disease) with emphysema (Chronic) Obesity (Chronic) Hyperlipidemia, unspecified (Chronic) Tobacco use disorder (Chronic) Medical History Anemia Hypothyroidism NSTEMI (non-ST elevated myocardial infarction) Sepsis syndrome Surgical History Colonoscopy - MAC (11/10/16) Orchiectomy, Radical Left, s/p trauma Repair, ACL Right-Age 17 Family History Father , HI? at age 79. Essential hypertension Myocardial infarction Maternal Aunt Neoplasm Adnexa NOS Maternal Grandmother Neoplasm Adnexa NOS Mother , CVA & PNA at age 81. Essential hypertension Stroke Paternal Grandfather Myocardial infarction Social History Smoking/Tobacco Use Status: Current every day Tobacco Type: cigarettes Smoking packs per day: 0.5 Smoking cigarettes per day: 10.0 Years smoked: 40 Smoking pack-years: 20.00 Smoking risk assessment performed?: Yes Alcohol Intake: current Alcohol Intake frequency: a few times a month Drug use: Never Substance use type: does not use Adopted: No Caregiver/Support person: No Household members: spouse, family and children Number of Children: 2 number of grandchildren: 4 Communication Needs: None Education Level: college Details: Some College Do you need help understanding health information?: Rarely Pets and animals: No Sexually active: No Do you think of yourself as: straight/heterosexual Current gender identity: male What is your relationship status?: How often do you talk on the phone with friends or family?: once per week How often do you get together with friends or relatives?: once per week Do you belong to any clubs or organized social groups?: no Panel score (0-1 are the most socially isolated patients): 1 What type of physical activity do you participate in: resistance training Duration: < 15 minutes/day Frequency: 1-2 times per week Chantell/Pentecostal: Taoist Special chantell needs: No Seatbelt use: always Drive intox or ride w/intox home delivery driver: No Do you feel safe at home: Yes Do you feel safe in your relationship?: Yes Exam Const General: cooperative, comfortable and no acute distress Nutritional Appearance: obese HENMT Head: normocephalic and atraumatic Resp Effort & Inspection: normal respiratory effort Auscultation: diminished lung sounds on the right in the lower lung martin Cardio Rate: tachycardic Rhythm: abnormal rhythm Results Last Vital Signs Temp 96.8 F L 10/04/21 07:32 Pulse 123 H 10/04/21 14:54 Resp 25 H 10/04/21 07:32 BP 106/66 10/04/21 07:32 Pulse Ox 95 10/04/21 07:36 Labs Result diagrams: 10/04/21 06:31 10/04/21 06:31 Labs: Laboratory Results - last 24 hr 10/04/21 10/04/21 06:31 06:31 WBC 13.38 H RBC 4.77 Hgb 13.5 Hct 44.8 MCV 94 MCH 28.3 MCHC 30.1 L RDW 14.7 H Plt Count 285 MPV 9.5 Immature Gran % 0.4 Neutrophils % 81.9 Lymphocytes % 10.0 Monocytes % 7.3 Eosinophils % 0.3 Basophils % 0.1 Nucleated RBC % 0.0 Absolute Neutrophils 10.96 H Absolute Lymphocytes 1.34 Absolute Monocytes 0.98 H Absolute Eosinophils 0.04 Absolute Basophils 0.01 Sodium 137 Potassium 4.1 Chloride 99 Carbon Dioxide 32.7 H Anion Gap 5.3 BUN 53 H Creatinine 1.9 H Estimated GFR/1.73 m2 35.32 Glucose 126 H Calcium 9.3 Imaging Chest x-ray: report reviewed and image reviewed Procedures Other Procedure Description/Findings: Pre-op Dx: Right Pleural effusion Post-op Dx: same Procedure: THoracenthesis Surgeon: Suzie Marlow MD Anesthesia: 5 cc of 1% Lidocaine Blood loss: minimal Specimen: pleural fluid Complications: no immediate complications Procedure: After informed consent was obtained the patient was was asked to sit at the edge of the bed. The patient was given a table with a pillow to lean against. The back was exposed. The right mid and lower back was US to find the pocket of fluid. Once the fluid was identified a marion was made on the skin. A time out was done. The patients name, , procedure to be done and side, allergies and antibiotic given were reviewed. Fire risk was assessed. Next the back was prepped and draped in a standard fashion with chlorhexidine. The thoracenthesis kit was opened in a sterile fashion. 1% Lidocaine was injected into the dermis, subcutaneous tissue and down between the ribs. A small incision was then made with an 11 blade. The needle and sheath were then slowly introduced until I was able to suction some fluid. At this point the sheath was advanced and the needle was pulled back. The needle was then attached to tubing and to a suction bottle. 1600 cc of serous fluid was removed. The sheath was removed and a band aid was applied. The patient was placed back on the rdenver and taken back to [facility] in stable condition. The patient tolerated the procedure well and there were no immediate complications. A chest XRay was ordered and is pending at the time of this dictation.
[2021-10-04] MEDS: Acetaminophen 325 MG TAB 650 MG PO (16:14)
[2021-10-04 16:29] LABS: Clarity Clear; Mononuclear Cells 84 %; Nucleated Cells 463 uL (0); Polynuclear Cells 16 %; Source Thoracic
[2021-10-04 16:34] LABS: Source: Other
[2021-10-04] MEDS: AZITHROMYCIN 500 MG in Normal Saline 250 ML 250 MG IVPB (18:40)
[2021-10-04] MEDS: Atorvastatin 10 MG TAB PO (21:24)
[2021-10-05] VITALS (12 sets, daily range): BP systolic 104–120; BP diastolic 64–79; PULSE 56–122; RESP 2–19; TEMP 36–36.7; O2SAT 92–98
--- NOTE | 2021-10-05 | DI.RAD_ITS ---
Exam(s) XR CHEST 2V PA LATERAL EXAM: XR CHEST 2V PA LATERAL CLINICAL HISTORY: pneumonia, s/p thoracentesis TECHNIQUE: 2D digital imaging was performed of the chest. Two images were obtained. PA and lateral views were obtained. COMPARISON: CR XR PORTABLE CHEST AP from 10/04/2021 FINDINGS: MEDIASTINUM: Normal. HEART: Normal. PULMONARY VASCULATURE: Normal. LUNGS: Clear. PLEURAL SPACE: There is a tiny right pleural effusion which may have increased since the prior examin ation on 10/04/2021. There is blunting of the left costophrenic angle. This may represent a tiny lef t pleural effusion. No pneumothorax. BONE:Within normal limits for the patient's age. OTHER FINDINGS:Normal. IMPRESSION: Small right pleural effusion which may have increased in size since the prior examination. DATA REPOSITORY: RADIATION DOSE DELIVERED:
[2021-10-05] MEDS: Normal Saline Flush 10 ML SYR IVP ×5 (01:43→21:02)
[2021-10-05] MEDS: PIPERACILLIN/TAZO 3.375 GM in Normal Saline 50 ML IVPB ×4 (02:30→21:02)
[2021-10-05] MEDS: Metoprolol 25 MG TAB PO ×4 (02:30→20:57)
[2021-10-05 06:54] LABS: Abs Immature Grans 0.06 10^3/uL (0.0-0.06); Absolute Basophil Count 0.01 10^3/uL (0.0-0.2); Absolute Eosinophil Count 0.03 10^3/uL (0.0-0.7); Absolute Lymphocyte Count 1.15 10^3/uL (1.2-3.4); Absolute Monocyte Count 0.94 10^3/uL (0.1-0.8); Basophils % 0.1; Eosinophils % 0.2; HCT 43.9 % (40.0-50.0); HGB 13.8 g/dL (13.5-17.5); Immature Grans % 0.5; Lymphocytes % 8.8; MCH 29.1 pg (27.0-33.0); MCHC 31.4 % (32.0-36.0); MCV 93 fL (80-95); MPV 9.5 fL (8.0-11.0); Monocytes % 7.2; Neutrophils % 83.2; Platelet Count 217 10^3/uL (130-400); RBC 4.74 10^6/uL (4.36-5.78); RDW 14.5 % (11.8-14.1); RDW-SD 49.2 fL; WBC 13.08 10^3/uL (4.4-10.8)
[2021-10-05 06:55] LABS: Absolute Neutrophil Count 10.88 10^3/uL (1.2-6.7)
[2021-10-05 07:21] LABS: Anion Gap 3.9 mmol/L (3-11); BUN 48 mg/dL (7-18); CO2 34.1 mmol/L (21.0-32.0); CREATININE 1.7 mg/dL (0.70-1.30); Calcium 8.9 mg/dL (8.5-10.1); Chloride 100 mmol/L (98-107); Estimated GFR 40.16 (mL/min/1.73m2); Glucose 132 mg/dL (74-106); LDH 154 U/L (85-227); Sodium 138 mmol/L (136-145)
[2021-10-05] MEDS: Insulin Aspart 300 UNITS/3 ML PEN SC ×3 (07:29→21:02)
[2021-10-05] MEDS: Furosemide 40 MG/4 ML VIAL IVP ×2 (07:31→16:39)
[2021-10-05] MEDS: Aspirin E.C. 81 MG TABEC PO (07:32)
[2021-10-05] MEDS: Triamcinolone 0.1% OINT 15 GM TUBE TP (07:32)
[2021-10-05] MEDS: Nystatin POWDER 60 GM JAR TP ×2 (07:41→20:58)
[2021-10-05] MEDS: Tiotropium/Olodaterol 10 PUFF INHALER 2 PUFF IH (08:15)
[2021-10-05] MEDS: Albuterol/Ipratropium 3 ML UPD VIAL UPD ×4 (08:16→20:58)
[2021-10-05] MEDS: Cyanocobalamin 500 MCG TAB 1000 MCG PO (08:20)
--- NOTE | 2021-10-05 09:42 | DI.VRAD_ITS ---
PROCEDURE INFORMATION: Exam: XR Chest Exam date and time: 10/05/2021 9:04 AM Age: 70 years old Clinical indication: Device placement; Prior surgery; Surgery type: Recent thoracentesis TECHNIQUE: Imaging protocol: Radiologic exam of the chest. Views: 2 views. COMPARISON: CR XR PORTABLE CHEST AP 10/04/2021 3:36 PM FINDINGS: Lungs: Unremarkable. No consolidation. Pleural spaces: Small pleural effusions bilaterally. Right effusion slightly increased since previous examination. Heart/Mediastinum: Unremarkable. No cardiomegaly. Bones/joints: Unremarkable. IMPRESSION: Small pleural effusions bilaterally. Right effusion slightly increased since previous examination. Dictated and Authenticated by: Alysa Loja MD. Ordering:MAKENNA Tsai MD
--- NOTE | 2021-10-05 15:54 | PGE_ITS ---
Date of Service Date of service: 10/05/21 Time of Service: 15:54 Assessment and Plan Assessment and plan (1) Pleural effusion: Status: Acute Assessment and plan: tapped by surgery investigations pending repeat cxr shows small right pleural effusion (2) Bacteremia due to Gram-negative bacteria: Status: Acute Assessment and plan: awaiting ID and sensitivities. broadened antibiotic to cover for pseudomas as lung source is suspected with gram neg jake bacteremia day 2 zosyn repeat blood cultures with no growth after 24 hours obtain echo Thursday when available (3) COPD (chronic obstructive pulmonary disease): Status: Chronic Assessment and plan: COPD with no evidence of exacerbation pulmonary consult with recommendation to stop steroid, (4) Pneumonia: Status: Acute Assessment and plan: antibiotics broadened with zosyn, continue azithromycin day 4 pulmonary consult recs for thoracentesis which was performed by surgery, pleural fluid sent for cytology and evaluation per pulmonary (5) Atrial fibrillation: Status: Chronic Assessment and plan: Atrial fibrillation with rapid ventricular response with stress of acute respiratory disease. continue metoprolol to 25 mg p.o. every 6 hours Cardiac monitoring discontinued troponin trending negative. anticoagulated on eliquis (6) Type 2 diabetes mellitus: Status: Chronic Assessment and plan: Glucometer before meals and at bedtime with an insulin coverage while hospita lized holding oral therapy. Patient may have worsening hyperglycemia on IV steroids. discussed with Dr Garcia Qualifiers: Diabetes mellitus complication status: with hyperglycemia Diabetes mellitus intermediate manager insulin use: without chcf use Qualified Code(s): E11.65 - Type 2 diabetes mellitus with hyperglycemia Subjective Subjective Patient reports: no new complaints, feels better, tolerating liquids well, tolerating a regular diet and afebrile; denies shortness of breath Exam Const General: cooperative, comfortable and no acute distress Nutritional Appearance: obese Orientation: alert, awake and oriented x3 HENMT Head: normal to inspection, normocephalic and atraumatic Neck Neck: normal visual inspection, full ROM and no JVD Chest Chest: normal inspection of the chest Resp Effort & Inspection: normal respiratory effort Auscultation: diminished lung sounds, no rhonchi and no wheezes Cardio Rate: regular rate Rhythm: regular rhythm GI Inspection: normal to inspection Palpation: soft Skin General skin exam: no rashes or lesions noted Neuro General: patient alert, patient awake and patient oriented x3 Extrem General: normal to inspection and full ROM Objective Last Vital Signs Temp 36.6 C 10/05/21 11:30 Pulse 62 10/05/21 11:30 Resp 14 10/05/21 11:30 BP 117/72 10/05/21 11:30 Pulse Ox 94 10/05/21 11:30 Laboratory Results - last 24 hr 10/04/21 10/04/21 10/04/21 15:30 15:30 15:30 WBC RBC Hgb Hct MCV MCH MCHC RDW Plt Count MPV Immature Gran % Neutrophils % Lymphocytes % Monocytes % Eosinophils % Basophils % Nucleated RBC % Absolute Neutrophils Absolute Lymphocytes Absolute Monocytes Absolute Eosinophils Absolute Basophils Sodium Potassium Chloride Carbon Dioxide Anion Gap BUN Creatinine Estimated GFR/1.73 m2 Glucose Calcium Lactate Dehydrogenase Total Protein 4.5 L Fluid Source Other Thoracic Fluid Color Yellow Fluid Clarity Clear Fluid pH 7.0 Fluid WBC 463 Fld Polynuclear WBCs % 16 Fluid Mononuclear Cell 84 10/05/21 10/05/21 06:25 06:25 WBC 13.08 H RBC 4.74 Hgb 13.8 Hct 43.9 MCV 93 MCH 29.1 MCHC 31.4 L RDW 14.5 H Plt Count 217 MPV 9.5 Immature Gran % 0.5 Neutrophils % 83.2 Lymphocytes % 8.8 Monocytes % 7.2 Eosinophils % 0.2 Basophils % 0.1 Nucleated RBC % 0.0 Absolute Neutrophils 10.88 H Absolute Lymphocytes 1.15 L Absolute Monocytes 0.94 H Absolute Eosinophils 0.03 Absolute Basophils 0.01 Sodium 138 Potassium 4.0 Chloride 100 Carbon Dioxide 34.1 H Anion Gap 3.9 BUN 48 H Creatinine 1.7 H Estimated GFR/1.73 m2 40.16 Glucose 132 H Calcium 8.9 Lactate Dehydrogenase 154 Total Protein Fluid Source Fluid Color Fluid Clarity Fluid pH Fluid WBC Fld Polynuclear WBCs % Fluid Mononuclear Cell
[2021-10-05] MEDS: AZITHROMYCIN 500 MG in Normal Saline 250 ML 250 MG IVPB (18:02)
[2021-10-05] MEDS: Apixaban 5 MG TAB PO (20:57)
[2021-10-05] MEDS: Atorvastatin 10 MG TAB PO (20:57)
[2021-10-06] VITALS (11 sets, daily range): BP systolic 93–122; BP diastolic 64–82; PULSE 60–124; RESP 1–22; TEMP 35.2–37; O2SAT 93–99
[2021-10-06] MEDS: Metoprolol 25 MG TAB PO ×4 (02:35→20:20)
[2021-10-06] MEDS: PIPERACILLIN/TAZO 3.375 GM in Normal Saline 50 ML IVPB ×4 (02:35→20:19)
[2021-10-06] MEDS: Normal Saline Flush 10 ML SYR IVP ×4 (02:35→17:52)
[2021-10-06] MEDS: Tiotropium/Olodaterol 10 PUFF INHALER 2 PUFF IH (07:31)
[2021-10-06] MEDS: Albuterol/Ipratropium 3 ML UPD VIAL UPD ×4 (07:31→20:20)
[2021-10-06] MEDS: Furosemide 40 MG/4 ML VIAL IVP ×2 (08:32→16:38)
[2021-10-06] MEDS: Cyanocobalamin 500 MCG TAB 1000 MCG PO (08:33)
[2021-10-06] MEDS: Apixaban 5 MG TAB PO ×2 (08:33→20:20)
[2021-10-06] MEDS: Aspirin E.C. 81 MG TABEC PO (08:33)
[2021-10-06] MEDS: Triamcinolone 0.1% OINT 15 GM TUBE TP (08:35)
[2021-10-06] MEDS: Nystatin POWDER 60 GM JAR TP ×2 (08:35→20:21)
[2021-10-06 10:52] LABS: HCT 45.1 % (40.0-50.0); HGB 13.8 g/dL (13.5-17.5); MCH 28.5 pg (27.0-33.0); MCHC 30.6 % (32.0-36.0); MCV 93 fL (80-95); MPV 9.2 fL (8.0-11.0); Platelet Count 288 10^3/uL (130-400); RBC 4.84 10^6/uL (4.36-5.78); RDW 14.5 % (11.8-14.1); RDW-SD 49.6 fL; WBC 9.54 10^3/uL (4.4-10.8)
[2021-10-06 11:02] LABS: Anion Gap 3.8 mmol/L (3-11); BUN 41 mg/dL (7-18); CO2 40.2 mmol/L (21.0-32.0); CREATININE 1.9 mg/dL (0.70-1.30); Chloride 98 mmol/L (98-107); Estimated GFR 35.32 (mL/min/1.73m2); Glucose 159 mg/dL (74-106); Potassium 3.4 mmol/L (3.5-5.1); Sodium 142 mmol/L (136-145)
[2021-10-06] MEDS: Insulin Aspart 300 UNITS/3 ML PEN SC ×3 (12:16→21:59)
[2021-10-06 17:00] LABS: Glucose, Fluid 175 mg/dL (See Note)
[2021-10-06] MEDS: AZITHROMYCIN 500 MG in Normal Saline 250 ML 250 MG IVPB (17:51)
--- NOTE | 2021-10-06 18:40 | W.PM.PROGNOT ---
Date of Service Date of service: 10/06/21 Time of Service: 18:41 Assessment and Plan Assessment and plan (1) Pleural effusion: Status: Acute Assessment and plan: Thoracentesis by surgery Does not appear to be infectious. repeat cxr shows small right pleural effusion Cr increasing, IV lasix d/c, resume oral lasix, home dose tomorrow. Adjust as needed. (2) Bacteremia due to Gram-negative bacteria: Status: Acute Assessment and plan: Awaiting ID and sensitivities. broadened antibiotic to cover for pseudomas as lung source is suspected with gram neg jake bacteremia Zosyn day #3, Azithromycin day #5 repeat blood cultures with no growth at 48 hours Echo ordered for tomorrow, Thursday. (3) COPD (chronic obstructive pulmonary disease): Status: Chronic Assessment and plan: COPD with no evidence of exacerbation pulmonary consult with recommendation to stop steroid, (4) Pneumonia: Status: Acute Assessment and plan: antibiotics broadened with zosyn day 3, continue azithromycin day 5 pulmonary consult (5) Atrial fibrillation: Status: Chronic Assessment and plan: Atrial fibrillation with rapid ventricular response with stress of acute respiratory disease. continue metoprolol to 25 mg p.o. every 6 hours Cardiac monitoring discontinued troponin trending negative. anticoagulated on eliquis (6) Type 2 diabetes mellitus: Status: Chronic Assessment and plan: Glucometer before meals and at bedtime with an insulin coverage while hospitalized holding oral therapy. discussed with Dr Garcia Qualifiers: Diabetes mellitus exterminator helper termite insulin use: without long-term use Diabetes mellitus complication status: with hyperglycemia Qualified Code(s): E11.65 - Type 2 diabetes mellitus with hyperglycemia Subjective Subjective Interval history since last seen: Feeling well, denies SOB, reports breathing improved since thoracentesis. He reports an occasional cough. He is eating and drinking and tolerating his diet. He had BM. Exam Narrative Exam Narrative: General: very pleasant middle aged man, sitting up in the chair, alert and oriented, talkative. HEENT: normocephalic, atraumatic, EOMI, mmm. Neck: supple. Cardiovascular: irregularly irregular, nontachycardic Respiratory: respirations appear even and unlabored, lung sounds diminished t/o, talking without SOB. GI: +BS, abd soft, nondistended, nontender on palpation. Extremities: moves all 4 extremities, BLEs wrapped with edema, L>R. Objective Last Vital Signs Temp 35.2 C L 10/06/21 15:20 Pulse 62 10/06/21 15:20 Resp 22 10/06/21 15:20 BP 98/67 L 10/06/21 15:20 Pulse Ox 94 10/06/21 15:20 Laboratory Results - last 24 hr 10/06/21 10/06/21 10:45 10:45 WBC 9.54 RBC 4.84 Hgb 13.8 Hct 45.1 MCV 93 MCH 28.5 MCHC 30.6 L RDW 14.5 H Plt Count 288 MPV 9.2 Sodium 142 Potassium 3.4 L Chloride 98 Carbon Dioxide 40.2 H Anion Gap 3.8 BUN 41 H Creatinine 1.9 H Estimated GFR/1.73 m2 35.32 Glucose 159 H Calcium 9.0
[2021-10-06] MEDS: Potassium Chloride 20 MEQ TABCR PO (20:20)
[2021-10-06] MEDS: Atorvastatin 10 MG TAB PO (20:20)
[2021-10-07] VITALS (10 sets, daily range): BP systolic 92–120; BP diastolic 62–86; PULSE 64–124; RESP 8–20; TEMP 35.9–36.7; O2SAT 92–94
--- NOTE | 2021-10-07 | DI.US_ITS ---
APPROVED REPORT EXAM: Comprehensive 2D, Doppler, and color-flow Echocardiogram Patient Location: In-Patient Room/Bed: [facility] Hand Spring Repairer Helper: Daria Ruiz RDCS (AE) Indications: Positive blood cultures, sleep apnea, copd Other Information Study Quality: Adequate Conclusion Mild concentric left ventricular hypertrophy. Estimated ejection fraction is 40 to 45%. There is gl obal hypokinesis Normal right ventricular size and systolic function Both atria are mildly dilated Aortic valve is sclerotic and trileaflet without stenosis or regurgitation Mild mitral annular calcification. Mild mitral regurgitation Normal tricuspid valve with mild to moderate regurgitation Wall motion Left Ventricle The left ventricle is normal size. Left ventricular systolic function is mildly decreased. Mild gorge ntric left ventricular hypertrophy. There is global hypokinesis of the left ventricle. There is no ve ntricular septal defect visualized. LVEF is 40-45%. Right Ventricle The right ventricle is normal size. Right ventricular systolic function is grossly normal. Atria Left atrium is mildly dilated. Right atrium is mildly dilated. The interatrial septum is intact with no evidence for an atrial septal defect. Aortic Valve The Aortic valve is sclerotic. Aortic valve is trileaflet. There is no aortic valvular stenosis. No a ortic regurgitation is present. Mitral Valve Mild mitral annular calcification. No evidence of mitral valve stenosis. Mild mitral regurgitation. Tricuspid Valve The tricuspid valve is normal in structure. There is no tricuspid valve stenosis. Mild to moderate tr icuspid regurgitation. Pulmonic Valve The pulmonary valve is normal in structure. There is no pulmonic valvular stenosis. Trace pulmonic re gurgitation. Great Vessels The aortic root is normal in size. The ascending aorta is normal in size. Aortic arch is not well vis ualized. The IVC collapses <50% with inspiration. Pericardium There is no pericardial effusion. 2D Dimensions IVSD d PLAX 1.30 cm M: 0.6-1.2 LV Vol A2C d MOD 146.0 mL LVPW d PLAX 1.30 cm M: 0.6 - 1.2 LV Vol A4C d MOD 146.7 mL LVID d PLAX 5.12 cm M: 4.2 - 5.8 LA vol/ BSA A2C s A-L 36.0 mL/m2 LVDs 4.10 cm M: 2.5 - 4.0 LA vol/ BSA A4C s A-L 30.1 mL/m2 Ao Root d 3.05 cm M: 3.1 - 3.7 LA Vol/ BSA Biplane s A-L 33.4 mL/m2 RA Area A4C 21.39 cm2 LA Area A4C s MOD 22.49 cm2 RA Vol/ BSA A4C s A-L 28.3 mL/m2 LA Area A2C s MOD 24.20 cm2 Ao Asc Diam d 3.46 cm M: 2.6 - 3.4 LV EF A4C MOD 44.2 % LV EF Teichholz 39.8 % LV EF A2C MOD 40.7 % LVEF (Anthony's) 43.19 % M: 52 - 72 LV EF Biplane MOD 43.2 % LV Volume 107.28 mL M: 62 - 150 SV 64.44 mL LV Volume Index 47.05 mL/m2 M: 34 - 74 SV Index 28.23 mL/m2 LV Vol Biplane MOD 149.2 mL FS 19.45 % M-Mode TAPSE 1.62 cm (M/F) >1.7 LV Diastology MV E' lateral 0.147 (>0.1 m/s) MV E Vmax 1.14 (0.4-1.3 m/s) LV E/e LAT 7.75 (<14) MV E/E' lateral 7.77 Aortic Valve LVOT Area 3.08 cm2 AoV Area Vmax 1.18 cm2 LVOT Vmax 0.74 m/s AoV Area/ BSA (Vmax) 0.52 cm2/m2 LVOT Mean Mike. 0.51 m/s CORA Mean Mike. 1.11 cm2 LVOT Peak Grad 2.2 mmHg CORA Mean Mike. Index 0.48 cm2/m2 LVOT Mean Grad 1.2 mmHg LVOT VTI 0.117 m LVOT Diam s 1.95 cm AoV Vmax 1.95 m/s Velocity Ratio 0.37 AoV Mean Mike. 1.43 m/s AoV Peak Grad 15.1 mmHg LVOT SV 36.13 mL AoV Mean Grad 9.4 mmHg AoV VTI 0.285 m AoV Area VTI 1.27 cm2 AoV Area/ BSA (VTI) 0.55 cm/m2 Mitral Valve MV DT 191 (160-240 msec) MV PHT 55 msec MV Area PHT 3.98 cm2 MV VTI 0.182 m MV Area VTI 1.99 (4.0-6.0 cm2) Pulmonary Valve PV Vmax 0.82 (0.5-1.5 m/s) RVOT Peak Gr. 1.42 mmHg PV Peak Grad 2.7 mmHg RVOT Mean Gr. 0.70 mmHg PV Mean Grad 1.4 mmHg RVOT VTI 0.081 m PV VTI 0.112 m RVOT Vmax 0.59 m/s Tricuspid Valve TR Peak Grad 27.6 mmHg TR Vmax 2.63 m/s RA Pressure 8.00 mmHg RVSP (TR) 35.6 mmHg
[2021-10-07] MEDS: PIPERACILLIN/TAZO 3.375 GM in Normal Saline 50 ML IVPB ×4 (02:35→20:36)
[2021-10-07] MEDS: Metoprolol 25 MG TAB PO ×4 (03:15→20:36)
--- NOTE | 2021-10-07 05:55 | NUR.NOTE ---
patient refuses to elevate lower limbs throughout the shift despite education given. patient stated he is more comfortable with his legs down but will elevate them during the day
[2021-10-07] MEDS: Albuterol/Ipratropium 3 ML UPD VIAL UPD (07:32)
[2021-10-07 07:34] LABS: HCT 43.6 % (40.0-50.0); HGB 13.5 g/dL (13.5-17.5); MCH 28.6 pg (27.0-33.0); MCV 92 fL (80-95); MPV 9.4 fL (8.0-11.0); Platelet Count 287 10^3/uL (130-400); RBC 4.72 10^6/uL (4.36-5.78); RDW 14.4 % (11.8-14.1); WBC 9.48 10^3/uL (4.4-10.8)
[2021-10-07] MEDS: Tiotropium/Olodaterol 10 PUFF INHALER 2 PUFF IH (07:36)
[2021-10-07 07:45] LABS: Anion Gap 5.6 mmol/L (3-11); BUN 36 mg/dL (7-18); CO2 35.4 mmol/L (21.0-32.0); CREATININE 1.9 mg/dL (0.70-1.30); Calcium 9.2 mg/dL (8.5-10.1); Chloride 99 mmol/L (98-107); Estimated GFR 35.32 (mL/min/1.73m2); Glucose 127 mg/dL (74-106); Potassium 3.8 mmol/L (3.5-5.1); Sodium 140 mmol/L (136-145)
[2021-10-07] MEDS: Furosemide 20 MG TAB PO (08:11)
[2021-10-07] MEDS: Cyanocobalamin 500 MCG TAB 1000 MCG PO (08:11)
[2021-10-07] MEDS: Aspirin E.C. 81 MG TABEC PO (08:11)
[2021-10-07] MEDS: Triamcinolone 0.1% OINT 15 GM TUBE TP (08:12)
[2021-10-07] MEDS: Apixaban 5 MG TAB PO ×2 (08:12→20:36)
[2021-10-07] MEDS: Nystatin POWDER 60 GM JAR TP ×2 (08:12→20:35)
--- NOTE | 2021-10-07 09:30 | W.PULMPROG ---
Assessment and Plan Assessment and plan (1) COPD (chronic obstructive pulmonary disease): Status: Chronic (2) Pneumonia: Status: Acute (3) Bacteremia due to Gram-negative bacteria: Status: Acute (4) Recurrent infections: Status: Acute (5) CHF (congestive heart failure): Status: Acute (6) Atrial fibrillation: Status: Chronic (7) Pleural effusion: Status: Acute Assessment and plan: This is a chronically ill man with COPD, CHF and recurrent infections who is admitted with gram negative bacteremia thought to be due to a pneumonia. His pleural fluid so far is very bland. I am still awaiting results to definitively determine if it is transudative or exudative, but I feel confident that this is unlikely to be the source of his bacteremia. Instead, it seems more likely that it is from the legs again (particularly that his blood if growing two different gram negative rods). His respiratory symptoms were probably due to the effusion. Right pleural effusion - awaiting fluid LDH and cytology - I do not believe he has a pneumonia Gram negative bacteremia - can discontinue azithromycin - continue Zosyn - await speciation - consider skin as possible source COPD - continue prn albuterol - continue standing Duonebs for now - continue Stiolto - not in exacerbation Recurrent infections - HIV testing pending - immunoglobulins pending General Date Of Service Date of service: 10/07/21 Time of Service: 08:40 Requesting physician: Quin Shah Reason for Consult: Pleural Effusion Subjective Note Note: Demetrio is feeling very well today. He is on room air and breathing is easier. He also thinks that his legs are improving. Some of the pleural fluid studies have returned: there is no bacterial growth in the fluid and the pH was 7.0. The cell differential was normal with mononuclear predominance. The cytopathology is pending on the fluid. The glucose was elevated but the LDH is pending so a determination on whether this is transudative or exudative cannot be made yet. Giventhe blandness thus far of the fluid, I do not think this is the source of the bacteremia. His post thoracentesis CXR pond not show a hidden infiltrate or mass, so I am un-impressed with his having a pneumonia. Exam Narrative Exam Narrative: POCUS 10/04/21:?Limited exam to bilateral posterior lungs. Very small left sided pleural effusion. Moderate sized right sided pleural effusion with simple appearing fluid - no septations present to suggest loculation. Gen:?NAD, normal respiratory effort, obese HENT:?PERRL Chest:?No respiratory distress, normal appearance of chest,diminished breath sounds throughout. Heart:?regular rate and rhythym, no murmurs, rubs or gallops Abdomen:?Non-distended, soft, non tender Extremities:?No clubbing, 3+ edema to knee, no cyanosis, rashes Neuro:?AAOx3 , non focal Psych:?cooperative, appropriate mental affect Objective Last Vital Signs Temp 35.9 C L 10/07/21 07:28 Pulse 112 H 10/07/21 08:13 Resp 18 10/07/21 07:28 BP 110/70 10/07/21 08:13 Pulse Ox 92 10/07/21 07:32 Laboratory Results - last 24 hr 10/04/21 10/06/21 10/06/21 15:30 10:45 10:45 WBC 9.54 RBC 4.84 Hgb 13.8 Hct 45.1 MCV 93 MCH 28.5 MCHC 30.6 L RDW 14.5 H Plt Count 288 MPV 9.2 Sodium 142 Potassium 3.4 L Chloride 98 Carbon Dioxide 40.2 H Anion Gap 3.8 BUN 41 H Creatinine 1.9 H Estimated GFR/1.73 m2 35.32 Glucose 159 H Calcium 9.0 Fluid Glucose 175 10/07/21 10/07/21 06:00 06:00 WBC 9.48 RBC 4.72 Hgb 13.5 Hct 43.6 MCV 92 MCH 28.6 MCHC 31.0 L RDW 14.4 H Plt Count 287 MPV 9.4 Sodium 140 Potassium 3.8 Chloride 99 Carbon Dioxide 35.4 H Anion Gap 5.6 BUN 36 H Creatinine 1.9 H Estimated GFR/1.73 m2 35.32 Glucose 127 H Calcium 9.2 Fluid Glucose Results Medications Medications: Active Medications Generic Name Dose Route Start Last Admin Trade Name Freq PRN Reason Stop Dose Admin Acetaminophen 650 mg 10/03/21 01:09 10/04/21 16:14 Acetaminophen 325 Mg Tab PO 650 mg Q4H PRN PRN Administration Al Hydrox/Mg Hydrox/Simethicone 30 ml 10/03/21 01:09 Mylanta Suspension 30 Ml Cup PO Q2H PRN PRN Albuterol Sulfate 2.5 mg 10/03/21 01:09 Albuterol 2.5 Mg/3 Ml Inh Soln Vial UPD Q2H PRN PRN Albuterol/Ipratropium 3 ml 10/04/21 16:00 10/07/21 07:32 Albuterol/Ipratropium 3 Ml Upd Vial UPD 3 ml QID TAMARA Administration Ammonium Lactate 1 gm 10/03/21 07:21 Lachydrin 12% Lotion 225 Gm Btl TP BID PRN PRN dry skin Apixaban 5 mg 10/05/21 20:00 10/07/21 08:12 Apixaban 5 Mg Tab PO 5 mg BID TAMARA Administration Aspirin 81 mg 10/03/21 08:30 10/07/21 08:11 Aspirin E.C. 81 Mg Tabec PO 81 mg DAILY TAMARA Administration Atorvastatin Calcium 10 mg 10/03/21 20:00 10/06/21 20:20 Atorvastatin 10 Mg Tab PO 10 mg QPM TAMARA Administration Cyanocobalamin 1,000 mcg 10/05/21 08:30 10/07/21 08:11 Cyanocobalamin 500 Mcg Tab PO 1,000 mcg DAILY TAMARA Administration Device 1 each 10/04/21 14:00 Inhaler, Assist Device MC DIRECTED TAMARA Dextrose 0 gm 10/03/21 01:22 Glucose 40% Oral Solution 15 Gm/37.5 Gm Tube PO DIRECTED PRN Dextrose/Water 0 gm 10/03/21 01:22 Dextrose 50%-Water 25 Gm/50 Ml Syr IVP DIRECTED PRN Dimethicone/Zinc Oxide 0 gm 10/03/21 01:09 Jairo Protect Cream 142 Gm Tube TP PRN PRN Docusate Sodium 100 mg 10/03/21 01:09 Docusate Sodium 100 Mg Cap PO TID PRN PRN Furosemide 20 mg 10/07/21 08:30 10/07/21 08:11 Furosemide 20 Mg Tab PO 20 mg DAILY TAMARA Administration Sodium Chloride 500 mls @ 0 mls/hr 10/02/21 23:00 Saline 500ml Bag IV PRN PRN As Directed Azithromycin 500 mg/ Sodium 250 mls @ 250 mls/hr 10/03/21 18:00 10/06/21 18:55 Chloride IVPB Infused Q24H TAMARA Infusion Piperacillin Sod/Tazobactam 50 mls @ 100 mls/hr 10/04/21 14:00 10/07/21 08:10 Sod 3.375 gm/ Sodium Chloride IVPB 100 mls/hr Q6H TAMARA Administration Protocol IV Miscellaneous Supplies 1 each 10/02/21 23:00 Iv Access IV DIRECTED [facility] Insulin Aspart 0 units 10/03/21 07:30 10/07/21 08:12 Insulin Aspart 300 Units/3 Ml Pen SC Not Given AC & HS TAMARA Protocol Magnesium Hydroxide 30 ml 10/03/21 01:09 Milk Of Magnesia 30 Ml Cup PO DAILY PRN PRN Metoprolol Tartrate 25 mg 10/03/21 02:00 10/07/21 08:12 Metoprolol 25 Mg Tab PO 25 mg Q6H TAMARA Administration Nicotine 14 mg 10/03/21 01:09 Nicotine 14 Mg/24 Hr Patch TD DAILY PRN PRN Nystatin 0 gm 10/03/21 08:30 10/07/21 08:12 Nystatin Powder 60 Gm Jar TP 1 applic BID TAMARA Administration Polyethylene Glycol 17 gm 10/03/21 01:09 Polyethylene Glycol 3350 17 Gm Packet PO DAILY PRN PRN Constipation Sodium Chloride 0 ml 10/02/21 23:00 10/06/21 17:52 Normal Saline Flush 10 Ml Syr IVP 10 ml PRN PRN Administration Terbinafine HCl 0 gm 10/04/21 10:00 10/06/21 08:34 Terbinafine 1% Cream 15 Gm Tube TP 1 applic Q48H TAMARA Administration Tiotropium [place]/Olodaterol 2 puff 10/05/21 08:30 10/07/21 07:36 Tiotropium/Olodaterol 10 Puff Inhaler IH 2 inh DAILY TAMARA Administration Triamcinolone Acetonide 0 gm 10/03/21 08:30 10/07/21 08:12 Triamcinolone 0.1% Oint 15 Gm Tube TP 1 g DAILY TAMARA Administration Allergies shellfish derived Allergy (Intermediate, Verified 10/02/21 18:20) Hives house dust Allergy (Mild, Verified 10/02/21 18:20) hay fever Allergy (Mild, Uncoded 10/02/21 18:20) runny nose and cough Labs Result Diagrams: 10/07/21 06:00 10/07/21 06:00 Labs: 10/04/21 06:31 Blood Blood Culture - Preliminary NO GROWTH 72 HOURS 10/04/21 06:14 Blood Blood Culture - Preliminary NO GROWTH 72 HOURS 10/04/21 15:30 Pleural Anaerobic Culture - Preliminary 10/04/21 15:30 Pleural Body Fluid Culture - Preliminary 10/04/21 15:30 Pleural Gram Stain - Final 10/02/21 20:10 Blood Blood Culture - Preliminary Gram Negative Brett Gram Negative Brett#2 10/02/21 20:10 Blood Blood Culture - Preliminary Gram Negative Brett Laboratory Tests Range/Units 10/02/21 10/02/21 10/02/21 18:27 18:27 18:27 WBC (4.4-10.8) 10^3/uL 17.66 H RBC (4.36-5.78) 10^6/uL 4.91 Hgb (13.5-17.5) g/dL 14.5 Hct (40.0-50.0) % 45.3 MCV (80-95) fL 92 MCH (27.0-33.0) pg 29.5 MCHC (32.0-36.0) % 32.0 RDW (11.8-14.1) % 14.8 H Plt Count (130-400) 10^3/uL 336 MPV (8.0-11.0) fL 9.8 Immature Gran % 0.3 Neutrophils % 90.6 Lymphocytes % 3.9 Monocytes % 5.0 Eosinophils % 0.1 Basophils % 0.1 Nucleated RBC % (0.0-0.3) % 0.0 Absolute Neutrophils (1.2-6.7) 10^3/uL 16.00 H Absolute Lymphocytes (1.2-3.4) 10^3/uL 0.69 L Absolute Monocytes (0.1-0.8) 10^3/uL 0.88 H Absolute Eosinophils (0.0-0.7) 10^3/uL 0.02 Absolute Basophils (0.0-0.2) 10^3/uL 0.02 PT (9.3-11.0) sec INR (0.9-1.1) APTT (21.0-27.5) sec VBG pH (7.31-7.41) VBG pCO2 (41-51) mmHg VBG pO2 mmHg VBG HCO3 (23-28) mmol/L VBG Total CO2 (24-29) mmol/L VBG O2 Saturation % VBG Base Excess (-2-3) mmol/L Sodium (136-145) mmol/L 140 Potassium (3.5-5.1) mmol/L 4.9 Chloride (98-107) mmol/L 102 Carbon Dioxide (21.0-32.0) mmol/L 31.5 Anion Gap (3-11) mmol/L 6.5 BUN (7-18) mg/dL 30 H Creatinine (0.70-1.30) mg/dL 1.6 H Estimated GFR/1.73 m2 (mL/min/1.73m2) 43.07 Glucose (74-106) mg/dL 123 H Calcium (8.5-10.1) mg/dL 9.4 Magnesium (1.8-2.4) mg/dL Total Bilirubin (0.2-1.0) mg/dL 1.4 H AST (15-37) U/L 38 H ALT (16-63) U/L 37 Alkaline Phosphatase (46-116) U/L 56 Lactate Dehydrogenase (85-227) U/L Troponin I (<or=60) ng/L 62 H* NT-Pro-B Natriuret Pep (<300) pg/mL 2228 H Total Protein (6.4-8.2) g/dL 8.7 H Albumin (3.4-5.0) g/dL 3.7 TSH (0.36-3.74) uIU/mL Urine Color (Yellow) Urine Clarity (Clear) Urine pH (5-8) Ur Specific [place] (1.005-1.025) Urine Protein (Negative) mg/dL Urine Ketones (Negative) mg/dL Urine Blood (Negative) Urine Nitrite (Negative) Urine Bilirubin (Negative) Urine Urobilinogen (Up TO 0.2) EU/dL Ur Leukocyte Esterase (Negative) Urine RBC (0-2) HPF Urine WBC (0-5) HPF Ur Epithelial Cells (Negative) HPF Urine Crystals (Negative) HPF Urine Bacteria (Negative) HPF Urine Mucus (Negative) Ur Culture Indicated? Urine Glucose (Negative) mg/dL Fluid Source Fluid Color Fluid Clarity Fluid pH Fluid WBC (0) uL Fld Polynuclear WBCs % % Fluid Mononuclear Cell % Fluid Glucose (See Note) mg/dL COVID-19 Source SARS-CoV-2 (PCR) (Negative) Influenza Type A (PCR) (Negative) Influenza Type B (PCR) (Negative) RSV (PCR) (Negative) Range/Units 10/02/21 10/02/21 10/02/21 18:27 18:43 20:05 WBC (4.4-10.8) 10^3/uL RBC (4.36-5.78) 10^6/uL Hgb (13.5-17.5) g/dL Hct (40.0-50.0) % MCV (80-95) fL MCH (27.0-33.0) pg MCHC (32.0-36.0) % RDW (11.8-14.1) % Plt Count (130-400) 10^3/uL MPV (8.0-11.0) fL Immature Gran % Neutrophils % Lymphocytes % Monocytes % Eosinophils % Basophils % Nucleated RBC % (0.0-0.3) % Absolute Neutrophils (1.2-6.7) 10^3/uL Absolute Lymphocytes (1.2-3.4) 10^3/uL Absolute Monocytes (0.1-0.8) 10^3/uL Absolute Eosinophils (0.0-0.7) 10^3/uL Absolute Basophils (0.0-0.2) 10^3/uL PT (9.3-11.0) sec 13.3 H INR (0.9-1.1) 1.3 H APTT (21.0-27.5) sec 23.2 VBG pH (7.31-7.41) VBG pCO2 (41-51) mmHg VBG pO2 mmHg VBG HCO3 (23-28) mmol/L VBG Total CO2 (24-29) mmol/L VBG O2 Saturation % VBG Base Excess (-2-3) mmol/L Sodium (136-145) mmol/L Potassium (3.5-5.1) mmol/L Chloride (98-107) mmol/L Carbon Dioxide (21.0-32.0) mmol/L Anion Gap (3-11) mmol/L BUN (7-18) mg/dL Creatinine (0.70-1.30) mg/dL Estimated GFR/1.73 m2 (mL/min/1.73m2) Glucose (74-106) mg/dL Calcium (8.5-10.1) mg/dL Magnesium (1.8-2.4) mg/dL Total Bilirubin (0.2-1.0) mg/dL AST (15-37) U/L ALT (16-63) U/L Alkaline Phosphatase (46-116) U/L Lactate Dehydrogenase (85-227) U/L Troponin I (<or=60) ng/L NT-Pro-B Natriuret Pep (<300) pg/mL Total Protein (6.4-8.2) g/dL Albumin (3.4-5.0) g/dL TSH (0.36-3.74) uIU/mL Urine Color (Yellow) Yellow Urine Clarity (Clear) Clear Urine pH (5-8) 5.5 Ur Specific [place] (1.005-1.025) 1.025 Urine Protein (Negative) mg/dL Trace H Urine Ketones (Negative) mg/dL Negative Urine Blood (Negative) Trace-intact H Urine Nitrite (Negative) Negative Urine Bilirubin (Negative) Negative Urine Urobilinogen (Up TO 0.2) EU/dL 0.2 Ur Leukocyte Esterase (Negative) Negative Urine RBC (0-2) HPF 0-2 Urine WBC (0-5) HPF Negative Ur Epithelial Cells (Negative) HPF Negative Urine Crystals (Negative) HPF Urine Bacteria (Negative) HPF Negative Urine Mucus (Negative) Negative Ur Culture Indicated? No Urine Glucose (Negative) mg/dL Negative Fluid Source Fluid Color Fluid Clarity Fluid pH Fluid WBC (0) uL Fld Polynuclear WBCs % % Fluid Mononuclear Cell % Fluid Glucose (See Note) mg/dL COVID-19 Source Nasopharynx SARS-CoV-2 (PCR) (Negative) Negative Influenza Type A (PCR) (Negative) Negative Influenza Type B (PCR) (Negative) Negative RSV (PCR) (Negative) Negative Range/Units 10/02/21 10/02/21 10/02/21 20:18 20:30 22:43 WBC (4.4-10.8) 10^3/uL RBC (4.36-5.78) 10^6/uL Hgb (13.5-17.5) g/dL Hct (40.0-50.0) % MCV (80-95) fL MCH (27.0-33.0) pg MCHC (32.0-36.0) % RDW (11.8-14.1) % Plt Count (130-400) 10^3/uL MPV (8.0-11.0) fL Immature Gran % Neutrophils % Lymphocytes % Monocytes % Eosinophils % Basophils % Nucleated RBC % (0.0-0.3) % Absolute Neutrophils (1.2-6.7) 10^3/uL Absolute Lymphocytes (1.2-3.4) 10^3/uL Absolute Monocytes (0.1-0.8) 10^3/uL Absolute Eosinophils (0.0-0.7) 10^3/uL Absolute Basophils (0.0-0.2) 10^3/uL PT (9.3-11.0) sec INR (0.9-1.1) APTT (21.0-27.5) sec VBG pH (7.31-7.41) 7.28 L 7.23 L VBG pCO2 (41-51) mmHg 65 H* 74 H* VBG pO2 mmHg 118 62 VBG HCO3 (23-28) mmol/L 30 H 31 H VBG Total CO2 (24-29) mmol/L 28 29 VBG O2 Saturation % 97 86 VBG Base Excess (-2-3) mmol/L 3 3 Sodium (136-145) mmol/L Potassium (3.5-5.1) mmol/L Chloride (98-107) mmol/L Carbon Dioxide (21.0-32.0) mmol/L Anion Gap (3-11) mmol/L BUN (7-18) mg/dL Creatinine (0.70-1.30) mg/dL Estimated GFR/1.73 m2 (mL/min/1.73m2) Glucose (74-106) mg/dL Calcium (8.5-10.1) mg/dL Magnesium (1.8-2.4) mg/dL Total Bilirubin (0.2-1.0) mg/dL AST (15-37) U/L ALT (16-63) U/L Alkaline Phosphatase (46-116) U/L Lactate Dehydrogenase (85-227) U/L Troponin I (<or=60) ng/L 84 H* NT-Pro-B Natriuret Pep (<300) pg/mL Total Protein (6.4-8.2) g/dL Albumin (3.4-5.0) g/dL TSH (0.36-3.74) uIU/mL Urine Color (Yellow) Urine Clarity (Clear) Urine pH (5-8) Ur Specific [place] (1.005-1.025) Urine Protein (Negative) mg/dL Urine Ketones (Negative) mg/dL Urine Blood (Negative) Urine Nitrite (Negative) Urine Bilirubin (Negative) Urine Urobilinogen (Up TO 0.2) EU/dL Ur Leukocyte Esterase (Negative) Urine RBC (0-2) HPF Urine WBC (0-5) HPF Ur Epithelial Cells (Negative) HPF Urine Crystals (Negative) HPF Urine Bacteria (Negative) HPF Urine Mucus (Negative) Ur Culture Indicated? Urine Glucose (Negative) mg/dL Fluid Source Fluid Color Fluid Clarity Fluid pH Fluid WBC (0) uL Fld Polynuclear WBCs % % Fluid Mononuclear Cell % Fluid Glucose (See Note) mg/dL COVID-19 Source SARS-CoV-2 (PCR) (Negative) Influenza Type A (PCR) (Negative) Influenza Type B (PCR) (Negative) RSV (PCR) (Negative) Range/Units 10/03/21 10/03/21 10/03/21 06:02 06:02 06:02 WBC (4.4-10.8) 10^3/uL 16.56 H RBC (4.36-5.78) 10^6/uL 4.74 Hgb (13.5-17.5) g/dL 14.0 Hct (40.0-50.0) % 44.9 MCV (80-95) fL 95 MCH (27.0-33.0) pg 29.5 MCHC (32.0-36.0) % 31.2 L RDW (11.8-14.1) % 14.9 H Plt Count (130-400) 10^3/uL 266 MPV (8.0-11.0) fL 9.7 Immature Gran % 0.7 Neutrophils % 91.3 Lymphocytes % 4.3 Monocytes % 3.6 Eosinophils % 0.0 Basophils % 0.1 Nucleated RBC % (0.0-0.3) % 0.0 Absolute Neutrophils (1.2-6.7) 10^3/uL 15.12 H Absolute Lymphocytes (1.2-3.4) 10^3/uL 0.71 L Absolute Monocytes (0.1-0.8) 10^3/uL 0.60 Absolute Eosinophils (0.0-0.7) 10^3/uL 0.00 Absolute Basophils (0.0-0.2) 10^3/uL 0.02 PT (9.3-11.0) sec INR (0.9-1.1) APTT (21.0-27.5) sec VBG pH (7.31-7.41) VBG pCO2 (41-51) mmHg VBG pO2 mmHg VBG HCO3 (23-28) mmol/L VBG Total CO2 (24-29) mmol/L VBG O2 Saturation % VBG Base Excess (-2-3) mmol/L Sodium (136-145) mmol/L 141 Potassium (3.5-5.1) mmol/L 4.8 Chloride (98-107) mmol/L 102 Carbon Dioxide (21.0-32.0) mmol/L 29.9 Anion Gap (3-11) mmol/L 9.1 BUN (7-18) mg/dL 34 H Creatinine (0.70-1.30) mg/dL 2.0 H Estimated GFR/1.73 m2 (mL/min/1.73m2) 33.29 Glucose (74-106) mg/dL 132 H Calcium (8.5-10.1) mg/dL 9.3 Magnesium (1.8-2.4) mg/dL 2.5 H Total Bilirubin (0.2-1.0) mg/dL 1.4 H AST (15-37) U/L 23 ALT (16-63) U/L 30 Alkaline Phosphatase (46-116) U/L 54 Lactate Dehydrogenase (85-227) U/L Troponin I (<or=60) ng/L 73 H* NT-Pro-B Natriuret Pep (<300) pg/mL Total Protein (6.4-8.2) g/dL 8.2 Albumin (3.4-5.0) g/dL 3.3 L TSH (0.36-3.74) uIU/mL 2.98 Urine Color (Yellow) Urine Clarity (Clear) Urine pH (5-8) Ur Specific [place] (1.005-1.025) Urine Protein (Negative) mg/dL Urine Ketones (Negative) mg/dL Urine Blood (Negative) Urine Nitrite (Negative) Urine Bilirubin (Negative) Urine Urobilinogen (Up TO 0.2) EU/dL Ur Leukocyte Esterase (Negative) Urine RBC (0-2) HPF Urine WBC (0-5) HPF Ur Epithelial Cells (Negative) HPF Urine Crystals (Negative) HPF Urine Bacteria (Negative) HPF Urine Mucus (Negative) Ur Culture Indicated? Urine Glucose (Negative) mg/dL Fluid Source Fluid Color Fluid Clarity Fluid pH Fluid WBC (0) uL Fld Polynuclear WBCs % % Fluid Mononuclear Cell % Fluid Glucose (See Note) mg/dL COVID-19 Source SARS-CoV-2 (PCR) (Negative) Influenza Type A (PCR) (Negative) Influenza Type B (PCR) (Negative) RSV (PCR) (Negative) Range/Units 10/04/21 10/04/21 10/04/21 06:31 06:31 15:30 WBC (4.4-10.8) 10^3/uL 13.38 H RBC (4.36-5.78) 10^6/uL 4.77 Hgb (13.5-17.5) g/dL 13.5 Hct (40.0-50.0) % 44.8 MCV (80-95) fL 94 MCH (27.0-33.0) pg 28.3 MCHC (32.0-36.0) % 30.1 L RDW (11.8-14.1) % 14.7 H Plt Count (130-400) 10^3/uL 285 MPV (8.0-11.0) fL 9.5 Immature Gran % 0.4 Neutrophils % 81.9 Lymphocytes % 10.0 Monocytes % 7.3 Eosinophils % 0.3 Basophils % 0.1 Nucleated RBC % (0.0-0.3) % 0.0 Absolute Neutrophils (1.2-6.7) 10^3/uL 10.96 H Absolute Lymphocytes (1.2-3.4) 10^3/uL 1.34 Absolute Monocytes (0.1-0.8) 10^3/uL 0.98 H Absolute Eosinophils (0.0-0.7) 10^3/uL 0.04 Absolute Basophils (0.0-0.2) 10^3/uL 0.01 PT (9.3-11.0) sec INR (0.9-1.1) APTT (21.0-27.5) sec VBG pH (7.31-7.41) VBG pCO2 (41-51) mmHg VBG pO2 mmHg VBG HCO3 (23-28) mmol/L VBG Total CO2 (24-29) mmol/L VBG O2 Saturation % VBG Base Excess (-2-3) mmol/L Sodium (136-145) mmol/L 137 Potassium (3.5-5.1) mmol/L 4.1 Chloride (98-107) mmol/L 99 Carbon Dioxide (21.0-32.0) mmol/L 32.7 H Anion Gap (3-11) mmol/L 5.3 BUN (7-18) mg/dL 53 H Creatinine (0.70-1.30) mg/dL 1.9 H Estimated GFR/1.73 m2 (mL/min/1.73m2) 35.32 Glucose (74-106) mg/dL 126 H Calcium (8.5-10.1) mg/dL 9.3 Magnesium (1.8-2.4) mg/dL Total Bilirubin (0.2-1.0) mg/dL AST (15-37) U/L ALT (16-63) U/L Alkaline Phosphatase (46-116) U/L Lactate Dehydrogenase (85-227) U/L Troponin I (<or=60) ng/L NT-Pro-B Natriuret Pep (<300) pg/mL Total Protein (6.4-8.2) g/dL 4.5 L Albumin (3.4-5.0) g/dL TSH (0.36-3.74) uIU/mL Urine Color (Yellow) Urine Clarity (Clear) Urine pH (5-8) Ur Specific [place] (1.005-1.025) Urine Protein (Negative) mg/dL Urine Ketones (Negative) mg/dL Urine Blood (Negative) Urine Nitrite (Negative) Urine Bilirubin (Negative) Urine Urobilinogen (Up TO 0.2) EU/dL Ur Leukocyte Esterase (Negative) Urine RBC (0-2) HPF Urine WBC (0-5) HPF Ur Epithelial Cells (Negative) HPF Urine Crystals (Negative) HPF Urine Bacteria (Negative) HPF Urine Mucus (Negative) Ur Culture Indicated? Urine Glucose (Negative) mg/dL Fluid Source Fluid Color Fluid Clarity Fluid pH Fluid WBC (0) uL Fld Polynuclear WBCs % % Fluid Mononuclear Cell % Fluid Glucose (See Note) mg/dL COVID-19 Source SARS-CoV-2 (PCR) (Negative) Influenza Type A (PCR) (Negative) Influenza Type B (PCR) (Negative) RSV (PCR) (Negative) Range/Units 10/04/21 10/04/21 10/04/21 15:30 15:30 15:30 WBC (4.4-10.8) 10^3/uL RBC (4.36-5.78) 10^6/uL Hgb (13.5-17.5) g/dL Hct (40.0-50.0) % MCV (80-95) fL MCH (27.0-33.0) pg MCHC (32.0-36.0) % RDW (11.8-14.1) % Plt Count (130-400) 10^3/uL MPV (8.0-11.0) fL Immature Gran % Neutrophils % Lymphocytes % Monocytes % Eosinophils % Basophils % Nucleated RBC % (0.0-0.3) % Absolute Neutrophils (1.2-6.7) 10^3/uL Absolute Lymphocytes (1.2-3.4) 10^3/uL Absolute Monocytes (0.1-0.8) 10^3/uL Absolute Eosinophils (0.0-0.7) 10^3/uL Absolute Basophils (0.0-0.2) 10^3/uL PT (9.3-11.0) sec INR (0.9-1.1) APTT (21.0-27.5) sec VBG pH (7.31-7.41) VBG pCO2 (41-51) mmHg VBG pO2 mmHg VBG HCO3 (23-28) mmol/L VBG Total CO2 (24-29) mmol/L VBG O2 Saturation % VBG Base Excess (-2-3) mmol/L Sodium (136-145) mmol/L Potassium (3.5-5.1) mmol/L Chloride (98-107) mmol/L Carbon Dioxide (21.0-32.0) mmol/L Anion Gap (3-11) mmol/L BUN (7-18) mg/dL Creatinine (0.70-1.30) mg/dL Estimated GFR/1.73 m2 (mL/min/1.73m2) Glucose (74-106) mg/dL Calcium (8.5-10.1) mg/dL Magnesium (1.8-2.4) mg/dL Total Bilirubin (0.2-1.0) mg/dL AST (15-37) U/L ALT (16-63) U/L Alkaline Phosphatase (46-116) U/L Lactate Dehydrogenase (85-227) U/L Troponin I (<or=60) ng/L NT-Pro-B Natriuret Pep (<300) pg/mL Total Protein (6.4-8.2) g/dL Albumin (3.4-5.0) g/dL TSH (0.36-3.74) uIU/mL Urine Color (Yellow) Urine Clarity (Clear) Urine pH (5-8) Ur Specific [place] (1.005-1.025) Urine Protein (Negative) mg/dL Urine Ketones (Negative) mg/dL Urine Blood (Negative) Urine Nitrite (Negative) Urine Bilirubin (Negative) Urine Urobilinogen (Up TO 0.2) EU/dL Ur Leukocyte Esterase (Negative) Urine RBC (0-2) HPF Urine WBC (0-5) HPF Ur Epithelial Cells (Negative) HPF Urine Crystals (Negative) HPF Urine Bacteria (Negative) HPF Urine Mucus (Negative) Ur Culture Indicated? Urine Glucose (Negative) mg/dL Fluid Source Other Thoracic Fluid Color Yellow Fluid Clarity Clear Fluid pH 7.0 Fluid WBC (0) uL 463 Fld Polynuclear WBCs % % 16 Fluid Mononuclear Cell % 84 Fluid Glucose (See Note) mg/dL 175 COVID-19 Source SARS-CoV-2 (PCR) (Negative) Influenza Type A (PCR) (Negative) Influenza Type B (PCR) (Negative) RSV (PCR) (Negative) Range/Units 10/05/21 10/05/21 10/06/21 06:25 06:25 10:45 WBC (4.4-10.8) 10^3/uL 13.08 H RBC (4.36-5.78) 10^6/uL 4.74 Hgb (13.5-17.5) g/dL 13.8 Hct (40.0-50.0) % 43.9 MCV (80-95) fL 93 MCH (27.0-33.0) pg 29.1 MCHC (32.0-36.0) % 31.4 L RDW (11.8-14.1) % 14.5 H Plt Count (130-400) 10^3/uL 217 MPV (8.0-11.0) fL 9.5 Immature Gran % 0.5 Neutrophils % 83.2 Lymphocytes % 8.8 Monocytes % 7.2 Eosinophils % 0.2 Basophils % 0.1 Nucleated RBC % (0.0-0.3) % 0.0 Absolute Neutrophils (1.2-6.7) 10^3/uL 10.88 H Absolute Lymphocytes (1.2-3.4) 10^3/uL 1.15 L Absolute Monocytes (0.1-0.8) 10^3/uL 0.94 H Absolute Eosinophils (0.0-0.7) 10^3/uL 0.03 Absolute Basophils (0.0-0.2) 10^3/uL 0.01 PT (9.3-11.0) sec INR (0.9-1.1) APTT (21.0-27.5) sec VBG pH (7.31-7.41) VBG pCO2 (41-51) mmHg VBG pO2 mmHg VBG HCO3 (23-28) mmol/L VBG Total CO2 (24-29) mmol/L VBG O2 Saturation % VBG Base Excess (-2-3) mmol/L Sodium (136-145) mmol/L 138 142 Potassium (3.5-5.1) mmol/L 4.0 3.4 L Chloride (98-107) mmol/L 100 98 Carbon Dioxide (21.0-32.0) mmol/L 34.1 H 40.2 H Anion Gap (3-11) mmol/L 3.9 3.8 BUN (7-18) mg/dL 48 H 41 H Creatinine (0.70-1.30) mg/dL 1.7 H 1.9 H Estimated GFR/1.73 m2 (mL/min/1.73m2) 40.16 35.32 Glucose (74-106) mg/dL 132 H 159 H Calcium (8.5-10.1) mg/dL 8.9 9.0 Magnesium (1.8-2.4) mg/dL Total Bilirubin (0.2-1.0) mg/dL AST (15-37) U/L ALT (16-63) U/L Alkaline Phosphatase (46-116) U/L Lactate Dehydrogenase (85-227) U/L 154 Troponin I (<or=60) ng/L NT-Pro-B Natriuret Pep (<300) pg/mL Total Protein (6.4-8.2) g/dL Albumin (3.4-5.0) g/dL TSH (0.36-3.74) uIU/mL Urine Color (Yellow) Urine Clarity (Clear) Urine pH (5-8) Ur Specific [place] (1.005-1.025) Urine Protein (Negative) mg/dL Urine Ketones (Negative) mg/dL Urine Blood (Negative) Urine Nitrite (Negative) Urine Bilirubin (Negative) Urine Urobilinogen (Up TO 0.2) EU/dL Ur Leukocyte Esterase (Negative) Urine RBC (0-2) HPF Urine WBC (0-5) HPF Ur Epithelial Cells (Negative) HPF Urine Crystals (Negative) HPF Urine Bacteria (Negative) HPF Urine Mucus (Negative) Ur Culture Indicated? Urine Glucose (Negative) mg/dL Fluid Source Fluid Color Fluid Clarity Fluid pH Fluid WBC (0) uL Fld Polynuclear WBCs % % Fluid Mononuclear Cell % Fluid Glucose (See Note) mg/dL COVID-19 Source SARS-CoV-2 (PCR) (Negative) Influenza Type A (PCR) (Negative) Influenza Type B (PCR) (Negative) RSV (PCR) (Negative) Range/Units 10/06/21 10/07/21 10/07/21 10:45 06:00 06:00 WBC (4.4-10.8) 10^3/uL 9.54 9.48 RBC (4.36-5.78) 10^6/uL 4.84 4.72 Hgb (13.5-17.5) g/dL 13.8 13.5 Hct (40.0-50.0) % 45.1 43.6 MCV (80-95) fL 93 92 MCH (27.0-33.0) pg 28.5 28.6 MCHC (32.0-36.0) % 30.6 L 31.0 L RDW (11.8-14.1) % 14.5 H 14.4 H Plt Count (130-400) 10^3/uL 288 287 MPV (8.0-11.0) fL 9.2 9.4 Immature Gran % Neutrophils % Lymphocytes % Monocytes % Eosinophils % Basophils % Nucleated RBC % (0.0-0.3) % Absolute Neutrophils (1.2-6.7) 10^3/uL Absolute Lymphocytes (1.2-3.4) 10^3/uL Absolute Monocytes (0.1-0.8) 10^3/uL Absolute Eosinophils (0.0-0.7) 10^3/uL Absolute Basophils (0.0-0.2) 10^3/uL PT (9.3-11.0) sec INR (0.9-1.1) APTT (21.0-27.5) sec VBG pH (7.31-7.41) VBG pCO2 (41-51) mmHg VBG pO2 mmHg VBG HCO3 (23-28) mmol/L VBG Total CO2 (24-29) mmol/L VBG O2 Saturation % VBG Base Excess (-2-3) mmol/L Sodium (136-145) mmol/L 140 Potassium (3.5-5.1) mmol/L 3.8 Chloride (98-107) mmol/L 99 Carbon Dioxide (21.0-32.0) mmol/L 35.4 H Anion Gap (3-11) mmol/L 5.6 BUN (7-18) mg/dL 36 H Creatinine (0.70-1.30) mg/dL 1.9 H Estimated GFR/1.73 m2 (mL/min/1.73m2) 35.32 Glucose (74-106) mg/dL 127 H Calcium (8.5-10.1) mg/dL 9.2 Magnesium (1.8-2.4) mg/dL Total Bilirubin (0.2-1.0) mg/dL AST (15-37) U/L ALT (16-63) U/L Alkaline Phosphatase (46-116) U/L Lactate Dehydrogenase (85-227) U/L Troponin I (<or=60) ng/L NT-Pro-B Natriuret Pep (<300) pg/mL Total Protein (6.4-8.2) g/dL Albumin (3.4-5.0) g/dL TSH (0.36-3.74) uIU/mL Urine Color (Yellow) Urine Clarity (Clear) Urine pH (5-8) Ur Specific [place] (1.005-1.025) Urine Protein (Negative) mg/dL Urine Ketones (Negative) mg/dL Urine Blood (Negative) Urine Nitrite (Negative) Urine Bilirubin (Negative) Urine Urobilinogen (Up TO 0.2) EU/dL Ur Leukocyte Esterase (Negative) Urine RBC (0-2) HPF Urine WBC (0-5) HPF Ur Epithelial Cells (Negative) HPF Urine Crystals (Negative) HPF Urine Bacteria (Negative) HPF Urine Mucus (Negative) Ur Culture Indicated? Urine Glucose (Negative) mg/dL Fluid Source Fluid Color Fluid Clarity Fluid pH Fluid WBC (0) uL Fld Polynuclear WBCs % % Fluid Mononuclear Cell % Fluid Glucose (See Note) mg/dL COVID-19 Source SARS-CoV-2 (PCR) (Negative) Influenza Type A (PCR) (Negative) Influenza Type B (PCR) (Negative) RSV (PCR) (Negative)
[2021-10-07 09:39] LABS: IgE 475 IU/mL (<158)
[2021-10-07 10:05] LABS: HIV-1/2 Ag & Ab Screen Negative (Negative)
--- NOTE | 2021-10-07 11:16 | PGE_ITS ---
Date of Service Date of service: 10/07/21 Time of Service: 11:16 Assessment and Plan Assessment and plan (1) Pleural effusion: Status: Acute Assessment and plan: Thoracentesis by surgery Does not appear to be infectious. repeat cxr shows small right pleural effusion Cr increasing, IV lasix d/c, resume oral lasix, home dose tomorrow. Adjust as needed. (2) Bacteremia due to Gram-negative bacteria: Status: Acute Assessment and plan: Awaiting ID and sensitivities, was sent to reference lab. broadened antibiotic to cover for pseudomas as lung source is suspected with gram neg jake bacteremia Zosyn day #4, completed Azithromycin day #5 repeat blood cultures with no growth at 48 hours Echo today (3) COPD (chronic obstructive pulmonary disease): Status: Chronic Assessment and plan: COPD with no evidence of exacerbation pulmonary consult with recommendation to stop steroid, (4) Pneumonia: Status: Acute Assessment and plan: antibiotics broadened with zosyn day 3, continue azithromycin day 5 pulmonary consult (5) Atrial fibrillation: Status: Chronic Assessment and plan: Atrial fibrillation with rapid ventricular response with stress of acute respiratory disease. continue metoprolol to 25 mg p.o. every 6 hours Cardiac monitoring discontinued troponin trending negative. anticoagulated on eliquis (6) Type 2 diabetes mellitus: Status: Chronic Assessment and plan: Glucometer before meals and at bedtime with an insulin coverage while hospitalized holding oral therapy. discussed with Dr Goldstein Qualifiers: Diabetes mellitus complication status: with hyperglycemia Diabetes mellitus nursing home insulin use: without nursing home use Qualified Code(s): E11.65 - Type 2 diabetes mellitus with hyperglycemia Subjective Subjective Patient reports: no new complaints, feels better, tolerating liquids well, tolerating a regular diet and afebrile; denies shortness of breath Exam Const General: cooperative, comfortable and no acute distress Nutritional Appearance: obese Orientation: alert, awake and oriented x3 HENMT Head: normal to inspection, normocephalic and atraumatic Neck Neck: normal visual inspection, full ROM and no JVD Chest Chest: normal inspection of the chest Resp Effort & Inspection: normal respiratory effort Auscultation: diminished lung sounds, no rhonchi and no wheezes Cardio Rate: regular rate Rhythm: regular rhythm GI Inspection: normal to inspection Palpation: soft Skin General skin exam: no rashes or lesions noted Neuro General: patient alert, patient awake and patient oriented x3 Extrem General: normal to inspection and full ROM Objective Last Vital Signs Temp 35.9 C L 10/07/21 07:28 Pulse 112 H 10/07/21 08:13 Resp 18 10/07/21 07:28 BP 110/70 10/07/21 08:13 Pulse Ox 92 10/07/21 07:32 Laboratory Results - last 24 hr 10/04/21 10/04/21 10/04/21 13:59 13:59 15:30 WBC RBC Hgb Hct MCV MCH MCHC RDW Plt Count MPV Sodium Potassium Chloride Carbon Dioxide Anion Gap BUN Creatinine Estimated GFR/1.73 m2 Glucose Calcium Total Protein Cancelled Fluid Glucose IgE 475 H HIV 1&2 Ag/Ab, 4th Gen Negative 10/04/21 10/07/21 10/07/21 15:30 06:00 06:00 WBC 9.48 RBC 4.72 Hgb 13.5 Hct 43.6 MCV 92 MCH 28.6 MCHC 31.0 L RDW 14.4 H Plt Count 287 MPV 9.4 Sodium 140 Potassium 3.8 Chloride 99 Carbon Dioxide 35.4 H Anion Gap 5.6 BUN 36 H Creatinine 1.9 H Estimated GFR/1.73 m2 35.32 Glucose 127 H Calcium 9.2 Total Protein Fluid Glucose 175 IgE HIV 1&2 Ag/Ab, 4th Gen
[2021-10-07 11:23] LABS: IgA 387 mg/dL (85-499); IgG 1793 mg/dL (610-1,616); IgM 53 mg/dL (35-242)
[2021-10-07] MEDS: Insulin Aspart 300 UNITS/3 ML PEN SC ×3 (11:48→23:27)
--- NOTE | 2021-10-07 12:54 | PDOC.CMPRO ---
- If Service Date Differs Date of service: 10/07/21 Time of Service: 12:54 Care Management Progress Note S/O: Deemtrio remains inpatient, no change to overall plan. Pulmonology continues to follow. Demetrio will follow up with Pulmonology as well as with surgery for thoracentesis, per MD. CM continues to follow. A: 70 year old male admitted to [facility] 10/02/21 for CHF exacerbation, COPD exacerbation, pneumonia P: Demetrio will be discharged home, with new home health services; RN for wound care and diabetic management, COPD. He will follow up with his PCP, Pulmonology as well as surgery for thoracentesis. He will transport via private vehicle with family. CM will continue to support Mejia and assess for discharge needs.
[2021-10-07] MEDS: Normal Saline Flush 10 ML SYR IVP (14:32)
[2021-10-07] MEDS: Atorvastatin 10 MG TAB PO (20:36)
[2021-10-08] VITALS (9 sets, daily range): BP systolic 94–142; BP diastolic 64–91; PULSE 120–122; RESP 14–20; TEMP 35.9–37.1; O2SAT 94–96
[2021-10-08] MEDS: PIPERACILLIN/TAZO 3.375 GM in Normal Saline 50 ML IVPB ×4 (03:27→20:40)
[2021-10-08] MEDS: Metoprolol 25 MG TAB PO ×2 (03:27→08:26)
[2021-10-08] MEDS: Tiotropium/Olodaterol 10 PUFF INHALER 2 PUFF IH (07:46)
[2021-10-08] MEDS: Normal Saline Flush 10 ML SYR IVP ×2 (08:26→14:49)
[2021-10-08] MEDS: Aspirin E.C. 81 MG TABEC PO (08:26)
[2021-10-08] MEDS: Furosemide 20 MG TAB PO (08:26)
[2021-10-08] MEDS: Cyanocobalamin 500 MCG TAB 1000 MCG PO (08:27)
[2021-10-08] MEDS: Apixaban 5 MG TAB PO ×2 (08:27→20:40)
[2021-10-08] MEDS: Nystatin POWDER 60 GM JAR TP (08:27)
--- NOTE | 2021-10-08 08:28 | CMPROGNOTE_ITS ---
- If Service Date Differs Date of service: 10/08/21 Time of Service: 08:28 Care Management Progress Note S/O: Demetrio is sitting up in his chair with his legs elevated when CM met with him. He is working on his computer and is alert, oriented and pleasant. A new RX for Entresto was transmitted to his pharmacy however his copay is $654, which is not feasible. CM assisted patient with applying for coverage through [employer]. and the first 30 days is covered with $0 copy. CM verified this w rosa Hernandez at [facility]. Following discharge, Demetrio is aware that there is an additional application process to see if he's eligible for their discounted copay program, if he remains on Entresto. CM notified Marissa at Dr. Valera's office to help patient navigate this process after discharge. A: 70 year old male admitted to [facility] 10/02/21 for CHF exacerbation, COPD exacerbation, pneumonia P: Demetrio will be discharged home, with new home health services; RN for wound care and diabetic management, COPD. He will follow up with his PCP, Pulmonology as well as surgery for thoracentesis. He will transport via private vehicle with family. CM will continue to support Mejia and assess for discharge needs.
[2021-10-08] MEDS: Triamcinolone 0.1% OINT 15 GM TUBE TP (09:19)
[2021-10-08 10:22] LABS: Abs Immature Grans 0.04 10^3/uL (0.0-0.06); Absolute Basophil Count 0.06 10^3/uL (0.0-0.2); Absolute Lymphocyte Count 1.39 10^3/uL (1.2-3.4); Absolute Monocyte Count 0.69 10^3/uL (0.1-0.8); Absolute Neutrophil Count 7.04 10^3/uL (1.2-6.7); Basophils % 0.6; Eosinophils % 3.2; HCT 44.6 % (40.0-50.0); HGB 13.7 g/dL (13.5-17.5); Immature Grans % 0.4; Lymphocytes % 14.6; MCH 28.4 pg (27.0-33.0); MCHC 30.7 % (32.0-36.0); MCV 92 fL (80-95); MPV 9.4 fL (8.0-11.0); Monocytes % 7.2; Platelet Count 285 10^3/uL (130-400); RBC 4.83 10^6/uL (4.36-5.78); RDW 14.3 % (11.8-14.1); RDW-SD 48.4 fL; WBC 9.52 10^3/uL (4.4-10.8)
[2021-10-08 10:35] LABS: Anion Gap 1.8 mmol/L (3-11); BUN 34 mg/dL (7-18); CO2 37.2 mmol/L (21.0-32.0); CREATININE 1.7 mg/dL (0.70-1.30); Calcium 9.3 mg/dL (8.5-10.1); Chloride 98 mmol/L (98-107); Estimated GFR 40.16 (mL/min/1.73m2); Glucose 167 mg/dL (74-106); Sodium 137 mmol/L (136-145)
[2021-10-08 10:46] LABS: Fluid Type THORACIC; Lactate Dehydrogenase (LD), BF 107 U/L
--- NOTE | 2021-10-08 10:53 | PGE_ITS ---
Date of Service Date of service: 10/08/21 Time of Service: 10:53 Assessment and Plan Assessment and plan (1) Heart failure, systolic, chronic: Status: Acute Assessment and plan: Conclusion Mild concentric left ventricular hypertrophy.? Estimated ejection fraction is 40 to 45%.? There is global hypokinesis Normal right ventricular size and systolic function Both atria are mildly dilated Aortic valve is sclerotic and trileaflet without stenosis or regurgitation Mild mitral annular calcification.? Mild mitral regurgitation Normal tricuspid valve with mild to moderate regurgitation stress test from July 2020: MPI Conclusion Ejection fraction was 42% with stress.? He is hypokinesis. There is a large partially reversible perfusion defect of the entire apex and apical anterior wall.? There is evidence of both infarct and ischemia. This represents an abnormal SPECT stress test. The results of this test were relayed to the nursing staff at [facility] internal medicine. on asa and statin. lasix and beta tio will add [facility] cardiology referral outpatient (2) Pleural effusion: Status: Acute Assessment and plan: Thoracentesis by surgery Does not appear to be infectious but transudative. (3) Bacteremia due to Gram-negative bacteria: Status: Acute Assessment and plan: Awaiting ID and sensitivities, was sent to reference lab. broadened antibiotic to cover for pseudomonas, no feel legs are source of bacteremia continue Zosyn day #5, completed Azithromycin day #5 repeat blood cultures with no growth at 48 hours Echo show Conclusion Mild concentric left ventricular hypertrophy.? Estimated ejection fraction is 40 to 45%.? There is global hypokinesis Normal right ventricular size and systolic function Both atria are mildly dilated Aortic valve is sclerotic and trileaflet without stenosis or regurgitation Mild mitral annular calcification.? Mild mitral regurgitation Normal tricuspid valve with mild to moderate regurgitation (4) COPD (chronic obstructive pulmonary disease): Status: Chronic Assessment and plan: COPD with no evidence of exacerbation pulmonary consult with recommendation to stop steroid, (5) Pneumonia: Status: Acute Assessment and plan: antibiotics broadened with zosyn day 3, continue azithromycin day 5 pulmonary consult (6) Atrial fibrillation: Status: Chronic Assessment and plan: Atrial fibrillation with rapid ventricular response with stress of acute respiratory disease. continue metoprolol to 25 mg p.o. every 6 hours Cardiac monitoring discontinued troponin trending negative. anticoagulated on eliquis (7) Type 2 diabetes mellitus: Status: Chronic Assessment and plan: Glucometer before meals and at bedtime with an insulin coverage while hospitali zed holding oral therapy. discussed with Dr Goldstein Qualifiers: Diabetes mellitus complication status: with hyperglycemia Diabetes mellitus penitentiary insulin use: without termite control technician use Qualified Code(s): E11.65 - Type 2 diabetes mellitus with hyperglycemia Subjective Subjective Patient reports: no new complaints, feels better, tolerating liquids well, tolerating a regular diet and afebrile Exam Const General: cooperative, comfortable and no acute distress Nutritional Appearance: obese Orientation: alert, awake and oriented x3 HENMT Head: normal to inspection, normocephalic and atraumatic Neck Neck: normal visual inspection, full ROM and no JVD Chest Chest: normal inspection of the chest Resp Effort & Inspection: normal respiratory effort Auscultation: diminished lung sounds, no rhonchi and no wheezes Cardio Rate: tachycardic Rhythm: abnormal rhythm GI Inspection: normal to inspection Palpation: soft Skin General skin exam: no rashes or lesions noted Neuro General: patient alert, patient awake and patient oriented x3 Extrem General: normal to inspection and full ROM Objective Last Vital Signs Temp 36.1 C L 10/08/21 07:20 Pulse 122 H 10/08/21 08:19 Resp 19 10/08/21 07:20 BP 142/91 H 10/08/21 08:19 Pulse Ox 96 10/08/21 07:20 Laboratory Results - last 24 hr 10/04/21 10/04/21 10/04/21 13:59 13:59 15:30 WBC RBC Hgb Hct MCV MCH MCHC RDW Plt Count MPV Immature Gran % Neutrophils % Lymphocytes % Monocytes % Eosinophils % Basophils % Nucleated RBC % Absolute Neutrophils Absolute Lymphocytes Absolute Monocytes Absolute Eosinophils Absolute Basophils Sodium Potassium Chloride Carbon Dioxide Anion Gap BUN Creatinine Estimated GFR/1.73 m2 Glucose Calcium Fluid Type Cancelled Fluid Total Protein Cancelled IgG 1793 H IgG Subclass 4 113.0 IgA 387 IgM 53 Path Cons Comment 10/04/21 10/08/21 10/08/21 15:30 10:02 10:02 WBC 9.52 RBC 4.83 Hgb 13.7 Hct 44.6 MCV 92 MCH 28.4 MCHC 30.7 L RDW 14.3 H Plt Count 285 MPV 9.4 Immature Gran % 0.4 Neutrophils % 74.0 Lymphocytes % 14.6 Monocytes % 7.2 Eosinophils % 3.2 Basophils % 0.6 Nucleated RBC % 0.0 Absolute Neutrophils 7.04 H Absolute Lymphocytes 1.39 Absolute Monocytes 0.69 Absolute Eosinophils 0.30 Absolute Basophils 0.06 Sodium 137 Potassium 4.0 Chloride 98 Carbon Dioxide 37.2 H Anion Gap 1.8 L BUN 34 H Creatinine 1.7 H Estimated GFR/1.73 m2 40.16 Glucose 167 H Calcium 9.3 Fluid Type Fluid Total Protein IgG IgG Subclass 4 IgA IgM Path Cons Comment
[2021-10-08] MEDS: Sacubitril/Valsartan 24 mg/26 mg TAB 1 EACH PO ×2 (11:19→20:39)
[2021-10-08] MEDS: Insulin Aspart 300 UNITS/3 ML PEN SC ×3 (12:08→22:03)
[2021-10-08] MEDS: Metoprolol 25 MG TAB 37.5 MG PO ×2 (12:08→18:01)
[2021-10-08] MEDS: Atorvastatin 10 MG TAB PO (20:40)
[2021-10-09 02:41] VITALS: BP 135/85; PULSE 76; RESP 16; TEMP 36.6; O2SAT 96
[2021-10-09] MEDS: PIPERACILLIN/TAZO 3.375 GM in Normal Saline 50 ML IVPB ×2 (02:49→08:33)
[2021-10-09 06:02] VITALS: BP 114/74; PULSE 67; RESP 22; TEMP 35.8; O2SAT 96
[2021-10-09] MEDS: Metoprolol 25 MG TAB 37.5 MG PO ×3 (06:27→12:10)
[2021-10-09 07:50] VITALS: BP 90/56; PULSE 65; RESP 18; TEMP 35.8; O2SAT 95
[2021-10-09] MEDS: Tiotropium/Olodaterol 10 PUFF INHALER 2 PUFF IH (07:56)
[2021-10-09 07:57] VITALS: RESP 10
[2021-10-09] MEDS: Normal Saline Flush 10 ML SYR IVP (08:33)
[2021-10-09] MEDS: Sacubitril/Valsartan 24 mg/26 mg TAB 1 EACH PO (08:34)
[2021-10-09] MEDS: Furosemide 20 MG TAB PO (08:34)
[2021-10-09] MEDS: Insulin Aspart 300 UNITS/3 ML PEN SC ×2 (08:34→12:10)
[2021-10-09] MEDS: Apixaban 5 MG TAB PO (08:34)
[2021-10-09] MEDS: Aspirin E.C. 81 MG TABEC PO (08:34)
[2021-10-09] MEDS: Cyanocobalamin 500 MCG TAB 1000 MCG PO (08:34)
--- NOTE | 2021-10-09 10:24 | PDOC.CMPRO ---
- If Service Date Differs Date of service: 10/09/21 Time of Service: 10:24 Care Management Progress Note S/O: Demetrio was sitting up in his chair when CM met with him. He was pleasant and engaged in conversation. Per report, the provider is awaiting sensitivities in order to determine his antibiotic course. Demetrio inquired about when he would be able to return to work, as he feels that it benefits him psychologically as well as financially to keep working. GLENNA Tsai, advised that the recommendation will be for him to follow up with his PCP in a week or two post discharge, and his PCP will make the decision for him to return to work at that time. CM will continue to follow. A: 70 year old male admitted to [facility] 10/02/21 for CHF exacerbation, COPD exacerbation, pneumonia P: Demetrio will be discharged home, with new home health services; RN for wound care and diabetic management, COPD. He will follow up with his PCP, Pulmonology as well as surgery for thoracentesis. He will transport via private vehicle with family. CM will continue to support Mejia and assess for discharge needs.
[2021-10-09 11:01] VITALS: BP 109/73; PULSE 63; RESP 14; TEMP 36.2; O2SAT 97
[2021-10-09 11:23] LABS: Fluid Type Pleural; Protein,Total, BF 4.5 g/dL
--- NOTE | 2021-10-09 13:04 | W.PM.DS.N ---
Date of service: 10/09/21 Time of Service: 13:04 DS: Diagnosis Discharge Diagnosis (1) Heart failure, systolic, chronic: Status: Acute Asessment and Plan: started on entresto continue lasix, Echo Conclusion Mild concentric left ventricular hypertrophy.? Estimated ejection fraction is 40 to 45%.? There is global hypokinesis Normal right ventricular size and systolic function Both atria are mildly dilated Aortic valve is sclerotic and trileaflet without stenosis or regurgitation Mild mitral annular calcification.? Mild mitral regurgitation Normal tricuspid valve with mild to moderate regurgitation (2) Pleural effusion: Status: Acute Asessment and Plan: thoracentesis by general surgery with 1600 cc removed.. transudative by lab evaluation continue treatment for heart failure (3) Bacteremia due to Gram-negative bacteria: Status: Acute Asessment and Plan: blood cultures cleared on zosyn, cultures from 10/04/21 with no growth was growing gram negative rods, sent to reference lab for final ID and sensitivities echo negative for vegetation needs 2 weeks of antibiotics, will downstep to augmentin to complete (4) COPD (chronic obstructive pulmonary disease): Status: Chronic Asessment and Plan: seen by pulmonary started on stiolto, will follow outpatient. respiratory status after diuresis and thoracentesis copd stable (5) Pneumonia: Status: Ruled-out (6) Atrial fibrillation: Status: Chronic Asessment and Plan: rate controlled on increased metoprolol to 150 mg daily anticoagulated on apixaban (7) Type 2 diabetes mellitus: Status: Chronic Asessment and Plan: continue current regimen discharge discussed with Dr Goldstein . Discharge Plan Disposition Patient Disposition: HOME Condition: Stable Discharge Details Reason For Visit: CHF Exacerbation, COPD Exacerbation, Pneumonia Admit Date/Time: 10/02/21 23:00 Admit Provider: Davin Green Attending Provider: Davin Green Primary Care Provider: Martha Valera Home Meds and New Rx's Prescriptions: New Entresto 24-26 mg tablet 1 tab PO BID Qty: 60 0RF Stiolto Respimat 2.5-2.5 mcg/actuation Mist 2 puff inhalation DAILY Qty: 1 0RF amoxicillin-pot clavulanate 875-125 mg tablet 1 tab PO BID Qty: 20 0RF Continued calcium carbonate [Calcium 500] 500 mg calcium (1,250 mg) tablet 500 mg PO DAILY Rx Instructions: States he takes it 3 to 4 times a week. atorvastatin 10 mg tablet 10 mg PO QPM Qty: 90 4RF terbinafine HCl [Antifungal (terbinafine)] 1 % cream 1 applic topical .every other day betamethasone valerate 0.1 % ointment 1 applic topical QD-BID PRN (Reason: High Potency (Group 3) topical steroid) Qty: 45 3RF Eliquis 5 mg tablet 5 mg PO BID Qty: 60 10RF nystatin 100,000 unit/gram powder 1 applic topical BID Qty: 30 0RF Rx Instructions: Apply liberally to groin folds twice daily for 7-14days for yeast. albuterol sulfate 2.5 mg /3 mL (0.083 %) solution for nebulization 2.5 mg inhalation Q4H PRN (Reason: shortness of breath or wheezing) Qty: 90 0RF furosemide 20 mg tablet See Rx Instructions .ROUTE .COMPLEX Qty: 90 0RF Dose Instruction: TAKE 1 TABLET BY MOUTH DAILY IN THE MORNING Rx Instructions: TAKE 1 TABLET BY MOUTH DAILY IN THE MORNING (DME) comp.stocking,knee,long,medium Misc See Rx Instructions .ROUTE .MEDSUPPLY Qty: 2 0RF Rx Instructions: As directed. Please measure patient for appropriate size. cyanocobalamin (vitamin B-12) 1,000 mcg tablet 1,000 mcg PO DAILY Qty: 90 3RF ammonium lactate 12 % cream 1 applic topical QD-BID PRN (Reason: dry skin) Qty: 140 3RF albuterol sulfate 90 mcg/actuation HFA aerosol inhaler 2 puff inhalation QID PRN (Reason: SOB) Qty: 18 12RF (DME) Blood Glucose Test Strip See Rx Instructions .ROUTE .MEDSUPPLY Qty: 100 3RF Rx Instructions: As directed to check blood glucose daily. No insulin. Dispense covered brand. (DME) lancets Misc See Rx Instructions .ROUTE .MEDSUPPLY Qty: 100 3RF Rx Instructions: As directed to check blood glucose daily. No insulin. Dispense covered brand. aspirin 81 mg tablet,delayed release (DR/EC) 81 mg PO DAILY cinnamon bark 500 mg capsule 500 mg PO DAILY Rx Instructions: States he takes as needed magnesium oxide 250 mg magnesium tablet 250 mg PO DAILY Rx Instructions: States he takes it 3 to 4 times a week glipizide 5 mg tablet extended release 24hr 5 mg PO DAILY Qty: 90 3RF metformin 500 mg tablet 500 mg PO DAILY Qty: 90 3RF triamcinolone acetonide 0.1 % ointment 1 applic topical DAILY Rx Instructions: 12/24/20 [facility] [place] [facility] Apply to both legs on top of vinegar spray after bathing daily (DME) blood-glucose meter [OneTouch UltraMini] Kit See Rx Instructions .ROUTE .MEDSUPPLY Qty: 1 0RF Rx Instructions: As directed Changed metoprolol succinate 50 mg tablet extended release 24 hr 150 mg PO DAILY Qty: 90 3RF Discontinued prednisone 20 mg tablet 40 mg PO .daily in AM Qty: 14 0RF Rx Instructions: COPD exacerbation Discharge Instructions Instructions: Heart Failure (DC), Bacteremia (DC) Additional Instructions: follow up with cardiology regarding further recommendations for heart failure and previous stress test continue compression and elevation of your legs Both Legs [place] both legs with Equous wound welt stitch cleaner and allow to dwell for 2 minutes. Scrub legs with Debrisoft sponge. Apply Poly mem 4X4 dressings to the open areas of skin to absorb exudate. Secure with Kerlix. Apply levi wraps for compression over wrapping 50% to just below the knee. Change daily or PRN if saturated. Stand Alone Forms: Nursing Discharge Form Referrals: Diya Kidd MD [ [facility] STAFF PHYSICIAN] - 11/12/21 10:00 am Jackie Burger MD [ [facility] STAFF PHYSICIAN] - 12/04/21 9:00 am Angelina Lewis NP [NURSE PRACTITIONER] - 10/10/21 2:45 pm Activity:: Activity as Tolerated Equipment/Supplies:: No Equipment Needed Diet:: Carb Counting Discharge Orders Discharge Orders: Discharge Order (Routine); Ordered 10/09/21 Ordered By: Quin Shah Discharge Data Discharge Date/Time-TO BE ENTERED AT DEPARTURE: 10/09/21 15:20 DS: Summary Time Spent with Patient providing and/or coordinating discharge services: Greater than 30 minutes Status at Discharge Functional status at discharge: uses cane/walker Overall status at discharge: patient is progressing back to baseline Mental Status: mental status grossly normal Speech and Movement: speech and movement normal Mood: congruent mood Affect: normal affect Exam Const General: cooperative, comfortable and no acute distress Nutritional Appearance: obese Orientation: alert, awake and oriented x3 HENMT Head: normal to inspection, normocephalic and atraumatic Neck Neck: normal visual inspection, full ROM and no JVD Chest Chest: normal inspection of the chest Resp Effort & Inspection: normal respiratory effort Auscultation: diminished lung sounds, no rhonchi and no wheezes Cardio Rate: tachycardic Rhythm: abnormal rhythm GI Inspection: normal to inspection Palpation: soft Skin General skin exam: no rashes or lesions noted Neuro General: patient alert, patient awake and patient oriented x3 Extrem General: normal to inspection and full ROM Psych Mental Status: mental status grossly normal Speech and Movement: speech and movement normal Mood: congruent mood Affect: normal affect DS: Data Vitals/I&O Vitals and I&O: Vital Signs Temperature 36.2 C L 10/09/21 11:01 Temperature Source Tympanic 10/09/21 11:01 Pulse 63 10/09/21 11:01 Pulse Rhythm Irregular 10/09/21 05:45 Pulse 123 H 10/02/21 23:50 Respiratory Rate 14 10/09/21 11:01 Respiratory Effort Non-Labored 10/09/21 08:30 Respiratory Depth Normal 10/09/21 08:30 Respiratory Pattern Normal 10/09/21 08:30 Blood Pressure 109/73 10/09/21 11:01 Blood Pressure Mean 88 10/02/21 23:45 Pulse Oximetry 97 10/09/21 11:01 Oxygen Delivery Method Room Air 10/09/21 11:01 Oxygen Flow Rate 0 10/09/21 11:01 Fraction of Inspired Oxygen (FIO2) 25 10/09/21 07:57 Pain Level 0 10/09/21 11:01 Comment 10/07/21 07:28 Intake & Output 10/08/21 10/09/21 10/09/21 23:59 11:59 23:59 Intake Total 340 / 440 100 / 100 Output Total 300 / 550 600 / 600 Balance 40 / -110 -500 / -500 Weight 114.7 kg Intake: IV 100 / 200 100 / 100 Oral 240 / 240 Output: Urine 300 / 550 600 / 600 Other: Urine Color Light Lois Urine Appearance Clear Clear Urine Odor Normal Voiding Methods Toilet Toilet Data Completed and Pending Labs on day of discharge: Labs from last 24 hours 10/04/21 15:30 Fluid Type Pleural Fluid Total Protein 4.5 Preliminary micro results at discharge 10/04/21 15:30 Anaerobic Culture - Preliminary Pleural 10/02/21 20:10 Blood Culture - Preliminary Blood Gram Negative Brett 10/02/21 20:10 Blood Culture - Preliminary Blood Gram Negative Brett PFSH All Active Problems (Updated 10/09/21 @ 13:09 by Quin Shah NP) Heart failure, systolic, chronic (Acute) Recurrent infections (Acute) Pleural effusion (Acute) Bacteremia due to Gram-negative bacteria (Acute) CHF (congestive heart failure) (Acute) COPD (chronic obstructive pulmonary disease) (Chronic) 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 2 diabetes mellitus (Chronic ~10/2019) Atrial fibrillation (Chronic) Psoriasis (Chronic) Tinea pedis (Acute 10/29/20) [facility] [place] Vitamin B12 deficiency (Chronic) Abnormal nuclear stress test (Acute) Stasis dermatitis of both legs (Acute) CKD (chronic kidney disease) (Acute) Essential hypertension (Chronic) Type 2 diabetes mellitus (Chronic) Venous insufficiency (Chronic) COPD (chronic obstructive pulmonary disease) with emphysema (Chronic) Obesity (Chronic) Hyperlipidemia, unspecified (Chronic) Tobacco use disorder (Chronic) Medical History Anemia Hypothyroidism NSTEMI (non-ST elevated myocardial infarction) Sepsis syndrome Surgical History Colonoscopy - MAC (11/10/16) Orchiectomy, Radical Left, s/p trauma Repair, ACL Right-Age 17 Family History Father , [place]? at age 79. Essential hypertension Myocardial infarction Maternal Aunt Neoplasm Adnexa NOS Maternal Grandmother Neoplasm Adnexa NOS Mother , CVA & PNA at age 81. Essential hypertension Stroke Paternal Grandfather Myocardial infarction Social History Smoking/Tobacco Use Status: Current every day Tobacco Type: cigarettes Smoking packs per day: 0.5 Smoking cigarettes per day: 10.0 Years smoked: 40 Smoking pack-years: 20.00 Smoking risk assessment performed?: Yes Alcohol Intake: current Alcohol Intake frequency: a few times a month Drug use: Never Substance use type: does not use Adopted: No Caregiver/Support person: No Household members: spouse, family and children Number of Children: 2 number of grandchildren: 4 Communication Needs: None Education Level: college Details: Some College Do you need help understanding health information?: Rarely Pets and animals: No Sexually active: No Do you think of yourself as: straight/heterosexual Current gender identity: male What is your relationship status?: How often do you talk on the phone with friends or family?: once per week How often do you get together with friends or relatives?: once per week Do you belong to any clubs or organized social groups?: no Panel score (0-1 are the most socially isolated patients): 1 What type of physical activity do you participate in: resistance training Duration: < 15 minutes/day Frequency: 1-2 times per week Chantell/Shinto: Zoroastrian Special chantell needs: No Seatbelt use: always Drive intox or ride w/intox electric screw driver operator: No Do you feel safe at home: Yes Do you feel safe in your relationship?: Yes
--- NOTE | 2021-10-09 13:27 | PDOC.CMDIS ---
- If Service Date Differs Date of service: 10/09/21 Time of Service: 13:27 LACE Index Scoring Tool - Questions: Length of Stay (in days): 7 - 13 Acuity (Admit via E.D.?): Yes Comorbidities: Diabetes w/o Complication, Congestive Heart Failure, Chronic Pulmonary Disease, Liver or Renal Disease E.D. Visits: 1 - Answers: Total Score: 14 Risk of Readmission: High Risk Care Management Discharge Reason for Hospitalization: CHF, COPD, Pneumonia Discharge Plan: Demetrio will return home today with no services. His will drive him home via private vehicle. He will follow up with his PCP and discharge plan of care. He is happy to be going home. Patient/Family Education Needs: Review discharge instructions and limitations, discussion of self care needs including ask me three.
== END 2021-10-09 15:20 | disposition home or self-care (01) | DRG 291 ==
LOC: ER 22:08 → MS 10-03 00:11
PROVIDERS: Nurse Practitioner; Nurse Practitioner Acute Care; Student in an Organized Health Care Education/Training Program; Admitting Provider Family Medicine; Emergency Provider Emergency Medicine; PCP Nurse Practitioner Family; Visit Provider Family Medicine
DX: I13.0 Hypertensive heart and chronic kidney disease with heart failure and stage 1 through stage 4 chronic kidney disease, or unspecified chronic kidney disease (principal); I50.23 Acute on chronic systolic (congestive) heart failure; L97.821 Non-pressure chronic ulcer of other part of left lower leg limited to breakdown of skin; L97.811 Non-pressure chronic ulcer of other part of right lower leg limited to breakdown of skin; J90 Pleural effusion, not elsewhere classified; R78.81 Bacteremia; I48.91 Unspecified atrial fibrillation; L40.9 Psoriasis, unspecified; E53.8 Deficiency of other specified B group vitamins; I87.2 Venous insufficiency (chronic) (peripheral); N18.9 Chronic kidney disease, unspecified; E11.22 Type 2 diabetes mellitus with diabetic chronic kidney disease; E66.9 Obesity, unspecified; Z68.37 Body mass index [BMI] 37.0-37.9, adult; E78.5 Hyperlipidemia, unspecified; F17.210 Nicotine dependence, cigarettes, uncomplicated; D64.9 Anemia, unspecified; E03.9 Hypothyroidism, unspecified; I25.2 Old myocardial infarction; Z79.84 Long term (current) use of oral hypoglycemic drugs; Z79.01 Long term (current) use of anticoagulants; E11.65 Type 2 diabetes mellitus with hyperglycemia; I08.3 Combined rheumatic disorders of mitral, aortic and tricuspid valves; J44.9 Chronic obstructive pulmonary disease, unspecified; I45.10 Unspecified right bundle-branch block
CPT/HCPCS: 36410; 36415; 80048; 80053; 82784; 82787; 82805; 85027; 87040; 87077; 87389; 87637; 93005; 93306; 94640; 96365; 96367; 96375; 99223; 99285; 71045; 71046; 81003; 81015; 81373; 82785; 83615; 83735; 83880; 83986; 84155; 84157; 84443; 84484; 85025; 85610; 85730; 87070; 87075; 87205; 88104; 89051; 93010; 94660; 99232; 99233; 99239; J0456; J0696; J1100; J1940; J2543; J2930; J7512; J7614; J7620; J7644

== ENCOUNTER → 2021-11-12 09:49 | Outpatient (BNVA) | payer MEDICARE, SELFPAY | PROVIDERS: PCP Nurse Practitioner Family; Visit Provider Internal Medicine Cardiovascular Disease | DX: R06.09 Other forms of dyspnea (principal); R60.0 Localized edema; E66.01 Morbid (severe) obesity due to excess calories; I25.2 Old myocardial infarction; I48.0 Paroxysmal atrial fibrillation; I10 Essential (primary) hypertension; I87.2 Venous insufficiency (chronic) (peripheral); I50.22 Chronic systolic (congestive) heart failure; R94.39 Abnormal result of other cardiovascular function study | CPT/HCPCS: 99214 ==

== ENCOUNTER 2021-12-06 01:18 | Outpatient (CLI) | payer MEDICARE, SELFPAY ==
[2021-12-06] MEDS: Albuterol HFA 18 GM 200 PUFF INH IH (14:47)
[2021-12-06] MEDS: Inhaler, Assist Device 1 EACH MC (14:47)
== END 2021-12-06 01:19 | disposition home or self-care (01) ==
LOC: RT 01:19
PROVIDERS: PCP Nurse Practitioner Family; Visit Provider Student in an Organized Health Care Education/Training Program
DX: J43.8 Other emphysema (principal); J96.92 Respiratory failure, unspecified with hypercapnia
CPT/HCPCS: 82805; 94060; 94726; 94729; 36600

== ENCOUNTER 2021-12-06 01:19 | Outpatient (CLI) | payer MEDICARE, SELFPAY ==
[2021-12-06 13:10] LABS: BE 4 mmol/L (-2-3); HCO3 28 mmol/L (22-26); pCO2 44 mmHg (35-45); pH 7.42 (7.35-7.45); pO2 74 mmHg (80-105); sO2 94 % (95-98); tCO2 25 mmol/L (23-27)
[2021-12-06 13:11] LABS: FIO2 R/A %; Site Left Radial
--- NOTE | 2021-12-09 14:51 | W.PFT ---
Date of service: 12/06/21 Time of Service: 13:16 Pulmonary Function Test Result Requesting Provider Tao Indications: GALVEZ Interpretation Spirometry: There is severe airflow limitation. There is a significant bronchodilator response. Lung Volumes: There is air trapping. Diffusion Capacity: Normal diffusion Airway Pressure: There is increased airways resistance. Impression Severe airflow limitation with a bronchodilator response and airtrapping with a normal diffusion. This could represent chronic bronchitis (COPD). Clinical Correlation therefore is recommended.
== END 2021-12-06 01:20 | disposition home or self-care (01) ==
LOC: RT 01:19
PROVIDERS: PCP Nurse Practitioner Family; Visit Provider Student in an Organized Health Care Education/Training Program
CPT/HCPCS: 82805

== ENCOUNTER 2021-12-09 01:43 | Outpatient (CLI) | payer MEDICARE, SELFPAY ==
--- NOTE | 2021-12-09 07:15 | DI.RAD_ITS ---
Exam(s) XR CHEST 2V PA LATERAL EXAM: XR CHEST 2V PA LATERAL CLINICAL HISTORY: Hypercapnic respiratory failure,j96.92 TECHNIQUE: 2D digital imaging was performed. COMPARISON: CT CT CHEST LUNG CANCER SCREEN from 06/24/2021 CR,XR XR CHEST 2V PA LATERAL from 10/05/2021 FINDINGS: HEART: Mildly enlarged. Aorta: PULMONARY VASCULATURE: Normal. LUNGS: Clear. PLEURAL SPACE: Minimal blunting at the right costophrenic angle, improved from prior. No pneumothora x. BONE:Unremarkable for age. IMPRESSION: No acute abnormality. DATA REPOSITORY: RADIATION DOSE DELIVERED:
== END 2021-12-09 02:03 ==
LOC: DI 01:43
PROVIDERS: PCP Nurse Practitioner Family; Visit Provider Student in an Organized Health Care Education/Training Program
DX: J96.92 Respiratory failure, unspecified with hypercapnia (principal); I48.0 Paroxysmal atrial fibrillation; I10 Essential (primary) hypertension; I50.22 Chronic systolic (congestive) heart failure; I48.91 Unspecified atrial fibrillation; R94.39 Abnormal result of other cardiovascular function study
CPT/HCPCS: 99214; 71046

== ENCOUNTER 2021-12-26 01:02 | Outpatient (CLI) | payer MEDICARE, SELFPAY ==
--- NOTE | 2021-12-26 07:00 | DI.NM_ITS ---
APPROVED REPORT Exam: Pharmacologic Patient Location: Out-Patient Room/Bed: Stress Nurse: Leslie Drake RN Ordering Provider:JOSE ROSE, Contact Number: [phone] BMI: 35.43 Baseline Rhythm: Atrial Fibrillation, RBBB Comment: PVCs Indications: Heart failure. Repeat nuclear stress test, compare to previous. Medical History Medical History: DM2. COPD. HTN. HLD. Smoker. Obesity. NSTEMI. Pulmonary HTN. Hypercapnic respiratory failure. Heart failure reduced EF. Atrial fibrillation. Pleural effusion. Cardiac Medications: Torsemide. Stiotto. Respimat. Sacubitril-Valsartan. Metoprolol Succinate. Metfor min. Magnesium. Atorvastatin. Aspirin. Apixaban. Allergies: Shellfish. House dust. Cardiac Risk Factors: Family history. COPD. HTN. DM2. Smoker. HLD. Obesity. Pretest Chest Pain Characteristics: None. Exercise History: Sedentary Physical Disabilities: Legs, Back Lung Sounds: Clear to auscultation Heart Sounds: Irregular Stress Test Details Test: Pharmacologic stress was paired with low level exercise. Nuclear Acquisition: Rest Tc-99m/Stress Tc-99m 1 day Rest Isotope: Tc-99m Sestamibi. Dose: 10.8 Date: 12/26/2021 Injection Time: 0925 Stress Isotope: Tc-99m Sestamibi. Dose: 31.5 Date: 12/26/2021 Injection Time: 1100 HR Resting HR Supine: 98 bpm Max Heart Rate (APMHR): 150.646243 bpm Resting HR Standin bpm Target HR (85% APMHR): 127.430018 bpm Max HR Achieved: 143 bpm % of APMHR: 95.33 Recovery HR: 102 bpm BP Resting BP Supine: 102/70 mmHg Resting BP Standin/68 mmHg Max BP: 118/72 mmHg Recovery BP: 110/64 mmHg ECG Resting ECG: Atrial Fibrillation, RBBB Ectopy: PVCs Stress ECG: Atrial Fibrillation, RBBB ST Change: No significant ST segment changes noted Arrhythmia: VPC's Recovery ECG: Atrial Fibrillation, RBBB Recovery ST Change: No significant ST segment changes noted Recovery Arrhythmia: VPC Clinical Stress Symptoms: Dyspnea Exercise duration: 4 min3 sec Scale: Sedentary Angina Score: None Rate Pressure Product: [id number] Stress ECG Conclusion 1. Resting electrocardiogram showed atrial fibrillation and a right bundle branch block 2. Patient underwent pharmacologic stress with regadenoson 3. Peak heart rate achieved was 95% of predicted for age 4. Electrocardiographic portion of the test was consistent with myocardial ischemia with approximatel y [address] depression noted in the anterolateral leads 5. Occasional PVCs were seen 6. See MPI report Stress Test Summary STAGE HR BP SpO2 Symptoms NOTES Supine 98 102/70 Standing 117 112/68 1 min post Lexiscan injection 133 118/62 Dyspnea 3 min post Lexiscan injection 119 118/62 Dyspnea subsided. 6 min post Lexiscan injection 113 112/78 9 min post Lexiscan injection 102 110/64 Walking Lexiscan was performed at 1.3 mph at 0% grade. Pt tolerated with moderate dypspnea 30 seconds post Lexiscan injection. Dyspnea subsided 3 minutes post Lexiscan injection. No chest pains througho ut testing. MPI Conclusion There is apical ischemia. There is no significant infarction EF 31%. Wall motion appears diffusely hypocontractile Radiologist Interpretation Radiologist Interpretation by: Stefan Bah MD Interpretation Date/Time: 12/26/2021 16:54:07
[2021-12-26] MEDS: Regadenoson 0.4 MG/5 ML SYR IVP (11:42)
== END 2021-12-26 01:22 ==
LOC: DI 01:02
PROVIDERS: PCP Nurse Practitioner Family; Visit Provider Internal Medicine Cardiovascular Disease
DX: I50.22 Chronic systolic (congestive) heart failure (principal); R94.39 Abnormal result of other cardiovascular function study
CPT/HCPCS: 78452; 93016; 93018; 93017; J2785

== ENCOUNTER → 2022-01-10 10:08 | Outpatient (BNVA) | payer MEDICARE, SELFPAY | PROVIDERS: PCP Nurse Practitioner Family; Referring Provider Nurse Practitioner Family; Visit Provider Internal Medicine Cardiovascular Disease | DX: I25.10 Atherosclerotic heart disease of native coronary artery without angina pectoris (principal); I50.22 Chronic systolic (congestive) heart failure; I48.91 Unspecified atrial fibrillation; R94.39 Abnormal result of other cardiovascular function study; I87.2 Venous insufficiency (chronic) (peripheral); E11.65 Type 2 diabetes mellitus with hyperglycemia; E78.5 Hyperlipidemia, unspecified | CPT/HCPCS: 99214 ==

== ENCOUNTER 2022-01-22 03:40 | Outpatient (CLI) | payer MEDICARE, SELFPAY ==
[2022-01-22 09:54] LABS: Abs Immature Grans 0.02 10^3/uL (0.0-0.06); Absolute Basophil Count 0.06 10^3/uL (0.0-0.2); Absolute Eosinophil Count 0.32 10^3/uL (0.0-0.7); Absolute Lymphocyte Count 1.74 10^3/uL (1.2-3.4); Absolute Monocyte Count 0.74 10^3/uL (0.1-0.8); Absolute Neutrophil Count 4.57 10^3/uL (1.2-6.7); Basophils % 0.8; Eosinophils % 4.3; HGB 13.8 g/dL (13.5-17.5); Immature Grans % 0.3; Lymphocytes % 23.4; MCH 29.7 pg (27.0-33.0); MCHC 32.9 % (32.0-36.0); MCV 90 fL (80-95); MPV 9.1 fL (8.0-11.0); Monocytes % 9.9; Neutrophils % 61.3; Platelet Count 267 10^3/uL (130-400); RBC 4.65 10^6/uL (4.36-5.78); RDW 15.5 % (11.8-14.1); RDW-SD 51.2 fL; WBC 7.45 10^3/uL (4.4-10.8)
[2022-01-22 10:01] LABS: INR 1.1 (0.9-1.1); PTT Activated 26.8 sec (21.0-27.5)
[2022-01-22 10:47] LABS: Anion Gap 9.1 mmol/L (3-11); BUN 37 mg/dL (7-18); CO2 28.9 mmol/L (21.0-32.0); CREATININE 1.8 mg/dL (0.70-1.30); Chloride 102 mmol/L (98-107); Estimated GFR 39.99 (mL/min/1.73m2); Glucose 103 mg/dL (74-106); Potassium 4.2 mmol/L (3.5-5.1); Sodium 140 mmol/L (136-145)
== END 2022-01-22 03:41 | disposition home or self-care (01) ==
LOC: LBO 03:40
PROVIDERS: PCP Nurse Practitioner Family; Visit Provider Internal Medicine Cardiovascular Disease
DX: E11.65 Type 2 diabetes mellitus with hyperglycemia (principal); I25.10 Atherosclerotic heart disease of native coronary artery without angina pectoris; E78.5 Hyperlipidemia, unspecified; I87.2 Venous insufficiency (chronic) (peripheral); I48.0 Paroxysmal atrial fibrillation; N18.9 Chronic kidney disease, unspecified
CPT/HCPCS: 36415; 80051; 82947; 84520; 82565; 85025; 85610; 85730

== ENCOUNTER → 2022-03-13 10:57 | Outpatient (BNVA) | payer MEDICARE, SELFPAY | PROVIDERS: PCP Nurse Practitioner Family; Visit Provider Internal Medicine Cardiovascular Disease | DX: I25.10 Atherosclerotic heart disease of native coronary artery without angina pectoris (principal); I50.22 Chronic systolic (congestive) heart failure; I48.0 Paroxysmal atrial fibrillation; Z79.01 Long term (current) use of anticoagulants | CPT/HCPCS: 99214; 99213 ==

== ENCOUNTER 2022-04-24 12:34 | Outpatient (CLI) | payer MEDICARE, SELFPAY ==
--- NOTE | 2022-04-24 12:30 | RT.EKG_ITS ---
APPROVED REPORT Exam: Resting ECG Reason for Exam: evaluation of cardiac status, ekg after CABG Patient Location: O HR:110 bpm ECG Measurements Heart Rate 110 AXIS NM [id number] P [id number] QRSd 146 QRS 80 QT 393 T 77 QTc 532 Conclusion Atrial flutter...A-rate 245 Paired ventricular premature complexes...sequence of 2 V complexes Right bundle branch block...QRSd>120, terminal axis(90,270) Artifact in lead(s) II,III,aVR,aVL,aVF and baseline wander in lead(s) I,III,aVL,V1,V4
== END 2022-04-24 12:35 | disposition home or self-care (01) ==
LOC: DI.CARD 12:36
PROVIDERS: PCP Nurse Practitioner Family; Visit Provider Internal Medicine Cardiovascular Disease
DX: I21.4 Non-ST elevation (NSTEMI) myocardial infarction (principal); I25.10 Atherosclerotic heart disease of native coronary artery without angina pectoris; Z95.1 Presence of aortocoronary bypass graft; R94.31 Abnormal electrocardiogram [ECG] [EKG]; I45.19 Other right bundle-branch block
CPT/HCPCS: 93010

== ENCOUNTER → 2022-04-24 13:02 | Outpatient (BNVA) | payer MEDICARE, SELFPAY | PROVIDERS: PCP Nurse Practitioner Family; Referring Provider Nurse Practitioner Family; Visit Provider Internal Medicine Cardiovascular Disease | DX: I25.10 Atherosclerotic heart disease of native coronary artery without angina pectoris (principal); I42.9 Cardiomyopathy, unspecified; I48.0 Paroxysmal atrial fibrillation; I25.2 Old myocardial infarction; Z95.1 Presence of aortocoronary bypass graft | CPT/HCPCS: 93005; 99214 ==

== ENCOUNTER 2022-05-03 12:35 | Emergency (ER) | payer MEDICARE, SELFPAY ==
[2022-05-03] VITALS (45 sets, daily range): BP systolic 96–144; BP diastolic 62–105; PULSE 92–164; RESP 14–30; TEMP 36.8; O2SAT 96
--- NOTE | 2022-05-03 12:30 | RT.EKG_ITS ---
APPROVED REPORT Exam: Resting ECG Reason for Exam: syncopal episodes, rapid heart rate, afib Patient Location: E HR:105 bpm ECG Measurements Heart Rate 105 AXIS IN [id number] P [id number] QRSd 137 QRS 194 QT 375 T 18 QTc 502 Conclusion Atrial flutter...A-rate 245 Nonspecific intraventricular conduction delay...QRSd >115mS, not LBBB/RBBB Anteroseptal infarct, age indeterminate...Q >35mS, T neg, V1-V2
--- NOTE | 2022-05-03 13:00 | DI.CT_ITS ---
Exam(s) CT CHEST PE CTA EXAM: CT CHEST PE CTA CLINICAL HISTORY: syncope, cough, SOB. TECHNIQUE: Imaging Protocol: Axial CT angiography was performed with multi-slice acquisition and mu lti-planar reconstructions as well as axial, coronal and sagittal MIP reconstructions. CONTRAST MATERIAL: Intravenous: Omnipaque 350 Contrast volume:100 ml COMPARISON: CT CT CHEST LUNG CANCER SCREEN from 06/24/2021 CR XR CHEST 2V PA LATERAL from 12/09/2021 FINDINGS: Pulmonary Arteries: No evidence of filling defect to suggest pulmonary emboli. Tracheobronchial tree: Patent where visualized. Mediastinum and Mishel: No dominant adenopathy or fluid collection. Pulmonary parenchyma: No consolidation or dominant measurable mass. Minimal dependent atelectasis ri ght lung base. Pleura: There is a moderate-sized right pleural effusion. There is a loculated pleural collection se en anterior to the left side of the heart superiorly which may be postsurgical.. Heart: Pericardial effusion, moderate, up to 2 cm in thickness. Patient is now status post CABG. Th ere are sternal wires and multiple mediastinal clips new from previous. Aorta: Thoracic aorta non-dilated. No aneurysm. No dissection. Upper abdomen: Enlarged fatty liver. Bones: Unremarkable for age. Tubes, Catheters, and Lines: IMPRESSION: No evidence of pulmonary embolism. Status post CABG. Moderate pericardial effusion. Moderate right pleural effusion. Anterior loculated collection the l eft upper chest could be postsurgical. No findings to suggest an abscess. RADIATION DOSE DELIVERED: 570.15mGy.cm Total DLP DATA REPOSITORY: All CT scans at this facility are submitted to the National Radiology Data Registry (NRDR) Dose Index Registry (DIR) with the [employer] (ACR). RADIATION OPTIMIZATION: All CT scans at this facility use at least one of these dose optimization te chniques: automated exposure control; mA and/or kV adjustment per patient size (includes targeted exa ms where dose is matched to clinical indication); or iterative reconstruction.
[2022-05-03 13:17] LABS: Abs Immature Grans 0.05 10^3/uL (0.0-0.06); Absolute Basophil Count 0.06 10^3/uL (0.0-0.2); Absolute Eosinophil Count 0.21 10^3/uL (0.0-0.7); Absolute Lymphocyte Count 1.05 10^3/uL (1.2-3.4); Absolute Monocyte Count 0.94 10^3/uL (0.1-0.8); Absolute Neutrophil Count 6.78 10^3/uL (1.2-6.7); Basophils % 0.7; Eosinophils % 2.3; HCT 34.4 % (40.0-50.0); HGB 10.4 g/dL (13.5-17.5); Immature Grans % 0.6; Lymphocytes % 11.6; MCH 30.8 pg (27.0-33.0); MCHC 30.2 % (32.0-36.0); MCV 102 fL (80-95); Monocytes % 10.3; Neutrophils % 74.5; Platelet Count 393 10^3/uL (130-400); RBC 3.38 10^6/uL (4.36-5.78); RDW 15.2 % (11.8-14.1); RDW-SD 55.8 fL; WBC 9.09 10^3/uL (4.4-10.8)
[2022-05-03 13:20] LABS: Source Nasal/Nares
[2022-05-03 13:42] LABS: ALT 30 U/L (16-63); AST 23 U/L (15-37); Albumin 3.6 g/dL (3.4-5.0); Alkaline Phosphatase 74 U/L (46-116); Anion Gap 6.5 mmol/L (3-11); BUN 29 mg/dL (7-18); Bilirubin, Total 0.9 mg/dL (0.2-1.0); CO2 32.5 mmol/L (21.0-32.0); CREATININE 1.7 mg/dL (0.70-1.30); Calcium 9.1 mg/dL (8.5-10.1); Chloride 105 mmol/L (98-107); Estimated GFR 42.83 (mL/min/1.73m2); Glucose 136 mg/dL (74-106); NT-proBNP 1763 pg/mL (<300); Potassium 3.8 mmol/L (3.5-5.1); Sodium 144 mmol/L (136-145); Total Protein 7.8 g/dL (6.4-8.2); Troponin I < 50 ng/L (<or=60)
--- NOTE | 2022-05-03 13:50 | ED.GENADUL_ITS ---
Discharge Plan Disposition Patient Disposition: Transfer-Acute Inpatient Care Specific Acute Inpt Facility: [facility] Condition: Serious Discharge Details Clinical Impression: Syncope, Pericardial effusion, Pleural effusion Primary Care Provider: Martha Valera ED Provider: Nav Montes Home Meds and New Rx's Prescriptions: No Action calcium carbonate [Calcium 500] 500 mg calcium (1,250 mg) tablet 500 mg PO DAILY Rx Instructions: States he takes it 3 to 4 times a week. atorvastatin 10 mg tablet 10 mg PO QPM Qty: 90 4RF betamethasone valerate 0.1 % ointment 1 applic topical QD-BID PRN (Reason: High Potency (Group 3) topical steroid) Qty: 45 3RF torsemide 20 mg tablet 20 mg PO BID Qty: 180 3RF nystatin 100,000 unit/gram powder 1 applic topical BID Qty: 30 0RF Rx Instructions: Apply liberally to groin folds twice daily for 7-14days for yeast. albuterol sulfate 2.5 mg /3 mL (0.083 %) solution for nebulization 2.5 mg inhalation Q4H PRN (Reason: shortness of breath or wheezing) Qty: 90 0RF (DME) comp.stocking,knee,long,medium Misc See Rx Instructions .ROUTE .MEDSUPPLY Qty: 2 0RF Rx Instructions: As directed. Please measure patient for appropriate size. cyanocobalamin (vitamin B-12) 1,000 mcg tablet 1,000 mcg PO DAILY Qty: 90 3RF ammonium lactate 12 % cream 1 applic topical QD-BID PRN (Reason: dry skin) Qty: 140 3RF albuterol sulfate 90 mcg/actuation HFA aerosol inhaler 2 puff inhalation QID PRN (Reason: SOB) Qty: 18 12RF (DME) Blood Glucose Test Strip See Rx Instructions .ROUTE .MEDSUPPLY Qty: 100 3RF Rx Instructions: As directed to check blood glucose daily. No insulin. Dispense covered brand. (DME) lancets Misc See Rx Instructions .ROUTE .MEDSUPPLY Qty: 100 3RF Rx Instructions: As directed to check blood glucose daily. No insulin. Dispense covered brand. aspirin 81 mg tablet,delayed release (DR/EC) 81 mg PO DAILY metformin 500 mg tablet 500 mg PO DAILY Qty: 90 3RF glipizide 5 mg tablet extended release 24hr 5 mg PO DAILY Qty: 90 3RF metoprolol succinate 50 mg tablet extended release 24 hr 150 mg PO DAILY Qty: 90 3RF furosemide 20 mg tablet 20 mg PO DAILY budesonide-formoterol [Symbicort] 160-4.5 mcg/actuation HFA aerosol inhaler 2 puff inhalation BID PRN Eliquis 5 mg tablet 5 mg PO BID Qty: 60 10RF Entresto 24-26 mg tablet 1 tab PO BID Qty: 60 3RF (DME) blood-glucose meter [OneTouch UltraMini] Kit See Rx Instructions .ROUTE .MEDSUPPLY Qty: 1 0RF Rx Instructions: As directed atorvastatin 80 mg tablet 80 mg PO 1XD Patient Comments: TAKE 1 TABLET BY MOUTH EVERY EVENING Discharge Data Discharge Date/Time-TO BE ENTERED AT DEPARTURE: 05/03/22 17:00 Medical Decision Making 71-year-old male with multiple medical problems including history of coronary artery disease status post bypass 3 weeks ago, CHF, atrial fibrillation, here with 2 syncopal episodes today during coughing spells. Patient had cough over the past 3 weeks since his coronary artery bypass surgery, cough worse recently. Consider respiratory illness including COVID versus pneumonia. Consider CHF. BNP is elevated at 1700, this is less than it has been in the past. Initial troponin negative. CKD noted. Acute anemia noted. EKG was reviewed and interpreted by me: Atrial flutter, 105 bpm, nonspecific interventricular conduction delay, no STEMI. Given recent surgery, syncope and shortness of breath, consider acute pulmonary embolism. Plan to obtain CT of the chest. 1520 --CT of the chest was interpreted by radiology: IMPRESSION: 1. Moderate right pleural effusion.. Small left pleural effusion. 2. Loculated pleural collection anterior to the heart and anterior to the left frontal lobe 12.8 x 4.3 cm and 13 Hounsfield units. It is adjacent to surgical clips (series 4 image 22 -16 ) It blends with the pericardial effusion. The pericardial effusion is 2.9 cm. 3. No evidence of pulmonary embolus to the segmental level. 4. Consolidation in the right lower lobe may represent atelectasis or pneumonia. Patient experiencing episode of shortness of breath and feeling generally un well. I set the patient up and increased oxygen. Patient is saturating around 100% on 3 L nasal cannula. He is tachycardic in the 120s with low normal blood pressure 109/69. I called [facility] transfer [facility] and requested emergent transfer. Relayed presentation and ED course. Awaiting callback. 1606 --I spoke to Dr. Hood of cardiac surgery at [facility], discussed ED presentation and course, he will accept the patient in transfer. He recommends trying some IV fluid. I will give LR 250 bolus. Awaiting notification of bed availability. 1600 --bed confirmed. No ground fire protection designer or washing machine installer available in the region at least the next 3 hours. I think this delay would put the patient at risk for potential worsening outcome. Plan to send by air unit. Lab Data Lab results reviewed: Yes I reviewed the patient's lab results. Labs: Laboratory Tests Range/Units 05/03/22 05/03/22 05/03/22 12:50 12:50 13:17 WBC (4.4-10.8) 10^3/uL 9.09 RBC (4.36-5.78) 10^6/uL 3.38 L Hgb (13.5-17.5) g/dL 10.4 L Hct (40.0-50.0) % 34.4 L MCV (80-95) fL 102 H MCH (27.0-33.0) pg 30.8 MCHC (32.0-36.0) % 30.2 L RDW (11.8-14.1) % 15.2 H Plt Count (130-400) 10^3/uL 393 MPV (8.0-11.0) fL 9.0 Immature Gran % 0.6 Neutrophils % 74.5 Lymphocytes % 11.6 Monocytes % 10.3 Eosinophils % 2.3 Basophils % 0.7 Nucleated RBC % (0.0-0.3) % 0.0 Absolute Neutrophils (1.2-6.7) 10^3/uL 6.78 H Absolute Lymphocytes (1.2-3.4) 10^3/uL 1.05 L Absolute Monocytes (0.1-0.8) 10^3/uL 0.94 H Absolute Eosinophils (0.0-0.7) 10^3/uL 0.21 Absolute Basophils (0.0-0.2) 10^3/uL 0.06 Sodium (136-145) mmol/L 144 Potassium (3.5-5.1) mmol/L 3.8 Chloride (98-107) mmol/L 105 Carbon Dioxide (21.0-32.0) mmol/L 32.5 H Anion Gap (3-11) mmol/L 6.5 BUN (7-18) mg/dL 29 H Creatinine (0.70-1.30) mg/dL 1.7 H Est GFR (CKD-EPI 2020) (mL/min/1.73m2) 42.83 Glucose (74-106) mg/dL 136 H Calcium (8.5-10.1) mg/dL 9.1 Total Bilirubin (0.2-1.0) mg/dL 0.9 AST (15-37) U/L 23 ALT (16-63) U/L 30 Alkaline Phosphatase (46-116) U/L 74 Troponin I (<or=60) ng/L < 50 NT-Pro-B Natriuret Pep (<300) pg/mL 1763 H Total Protein (6.4-8.2) g/dL 7.8 Albumin (3.4-5.0) g/dL 3.6 COVID-19 Source Nasal/Nares SARS-CoV-2 (PCR) (Negative) Negative HPI General Mode of arrival: EMS . Date/Time Provider Initiated Documentation: 05/03/22 13:05 . Limitations to Documentation: no limitations . Information obtained by: patient . HPI Narrative: 71-year-old male with history of coronary artery disease status post CABG 3 weeks ago, atrial fibrillation/flutter, COPD, CHF, presents with chief complaint of syncope. Patient notes he has been having intermittent coughing spells over the past few weeks since his bypass surgery. Coughing is worsened over the past 2 days. Today he had 2 smells or is coughing excessively and experienced brief syncopal episode. Relative was with him and notes he was unresponsive for about 15 to 20 seconds during these episodes. Patient denies associated chest pain. He has chronic leg swelling with no recent change, right greater than left and no calf pain. He denies abdominal pain. He does still have shortness of breath at this time. Oxygen was applied by nursing and he notes this has improved his shortness of breath. He does not typically use oxygen. Related Data Home Medications Medication Instructions Recorded Confirmed blood-glucose meter (Elias Borges UrzedaTouch #1 ea 11/02/19 05/03/22 UltraMini kit) blood sugar diagnostic (Blood #100 ea 12/07/19 05/03/22 Glucose Test strips) lancets #100 ea 12/07/19 05/03/22 comp.stocking,knee,long,medium #2 units 06/01/20 05/03/22 aspirin 81 mg tablet,delayed 81 mg PO DAILY 08/07/20 05/03/22 release calcium carbonate 500 mg calcium 500 mg PO DAILY 08/07/20 05/03/22 (1,250 mg) tablet (Calcium 500) ammonium lactate 12 % topical cream 1 applic topical QD-BID PRN dry 08/17/20 05/03/22 skin #140 grams cyanocobalamin (vitamin B-12) 1,000 mcg PO DAILY #90 tab-caps 08/17/20 05/03/22 1,000 mcg tablet atorvastatin 10 mg tablet 10 mg PO QPM #90 tabs 10/11/20 05/03/22 betamethasone valerate 0.1 % 1 applic topical QD-BID PRN High 11/16/20 05/03/22 topical ointment Potency (Group 3) topical steroid #45 grams albuterol sulfate 90 mcg/actuation 2 puff inhalation QID PRN SOB #18 08/05/21 05/03/22 aerosol inhaler grams albuterol sulfate 2.5 mg/3 mL 2.5 mg (3 mL) inhalation Q4H PRN 09/13/21 05/03/22 (0.083 %) solution for nebulization shortness of breath or wheezing #90 mL nystatin 100,000 unit/gram topical 1 applic topical BID #30 grams 09/13/21 05/03/22 powder torsemide 20 mg tablet 20 mg PO BID #180 tabs 11/12/21 05/03/22 metformin 500 mg tablet 500 mg PO DAILY #90 tab-caps 01/01/22 05/03/22 glipizide 5 mg tablet, extended 5 mg PO DAILY #90 tab-caps 01/08/22 05/03/22 release 24 hr metoprolol succinate 50 mg 150 mg PO DAILY #90 tabs 02/10/22 05/03/22 tablet,extended release 24 hr budesonide-formoterol HFA 160 2 puff inhalation BID PRN 03/18/22 05/03/22 mcg-4.5 mcg/actuation aerosol inhaler (Symbicort) furosemide 20 mg tablet 20 mg PO DAILY 03/18/22 05/03/22 apixaban 5 mg tablet (Eliquis) 5 mg PO BID #60 tabs 03/19/22 05/03/22 sacubitril 24 mg-valsartan 26 mg 1 tab PO BID #60 tabs 04/08/22 05/03/22 tablet (Entresto) atorvastatin 80 mg tablet 80 mg PO 1XD 05/03/22 05/03/22 Previous Rx's Medication Instructions Recorded blood-glucose meter (OneTouch #1 ea 11/02/19 UltraMini kit) blood sugar diagnostic (Blood #100 ea 12/07/19 Glucose Test strips) lancets #100 ea 12/07/19 comp.stocking,knee,long,medium #2 units 06/01/20 ammonium lactate 12 % topical cream 1 applic topical QD-BID PRN dry 08/17/20 skin #140 grams cyanocobalamin (vitamin B-12) 1,000 mcg PO DAILY #90 tab-caps 08/17/20 1,000 mcg tablet atorvastatin 10 mg tablet 10 mg PO QPM #90 tabs 10/11/20 betamethasone valerate 0.1 % 1 applic topical QD-BID PRN High 11/16/20 topical ointment Potency (Group 3) topical steroid #45 grams albuterol sulfate 90 mcg/actuation 2 puff inhalation QID PRN SOB #18 08/05/21 aerosol inhaler grams albuterol sulfate 2.5 mg/3 mL 2.5 mg (3 mL) inhalation Q4H PRN 09/13/21 (0.083 %) solution for nebulization shortness of breath or wheezing #90 mL nystatin 100,000 unit/gram topical 1 applic topical BID #30 grams 09/13/21 powder torsemide 20 mg tablet 20 mg PO BID #180 tabs 11/12/21 metformin 500 mg tablet 500 mg PO DAILY #90 tab-caps 01/01/22 glipizide 5 mg tablet, extended 5 mg PO DAILY #90 tab-caps 01/08/22 release 24 hr metoprolol succinate 50 mg 150 mg PO DAILY #90 tabs 02/10/22 tablet,extended release 24 hr apixaban 5 mg tablet (Eliquis) 5 mg PO BID #60 tabs 03/19/22 sacubitril 24 mg-valsartan 26 mg 1 tab PO BID #60 tabs 04/08/22 tablet (Entresto) Allergies Allergy/AdvReac Type Severity Reaction Status Date / Time shellfish derived Allergy Intermediate Hives Verified 05/03/22 12:38 house dust Allergy Mild Verified 05/03/22 12:38 hay fever Allergy Mild runny nose Uncoded 05/03/22 12:38 and cough General Stated Complaint: RespSymp MONY: 2 Review of Systems All systems reviewed & are unremarkable except as noted in HPI and below Constitutional Constitutional: Denies fever(s) Cardiovascular Cardiovascular: Denies chest pain PFSH All Active Problems (Updated 05/03/22 @ 15:37 by Nav Montes MD) Syncope (Chronic) Pericardial effusion (Acute) Pleural effusion (Acute) Cardiomyopathy (Acute) Recurrent cellulitis of lower extremity (Acute) CAD (coronary artery disease) (Chronic) Corns and callosities (Acute) Nail dystrophy (Acute) Hypercapnic respiratory failure (Acute) Personal history of nicotine dependence (Acute) Heart failure, systolic, chronic (Acute) Recurrent infections (Acute) Pleural effusion (Acute) Bacteremia due to Gram-negative bacteria (Acute) CHF (congestive heart failure) (Acute) 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 2 diabetes mellitus (Chronic ~10/2019) Atrial fibrillation (Chronic) Psoriasis (Chronic) Tinea pedis (Acute 10/29/20) [facility] Vitamin B12 deficiency (Chronic) Abnormal nuclear stress test (Acute) Stasis dermatitis of both legs (Acute) CKD (chronic kidney disease) (Acute) Essential hypertension (Chronic) Type 2 diabetes mellitus (Chronic) Venous insufficiency (Chronic) COPD (chronic obstructive pulmonary disease) with emphysema (Chronic) Obesity (Chronic) Hyperlipidemia, unspecified (Chronic) Tobacco use disorder (Chronic) Medical History Anemia Hypothyroidism NSTEMI (non-ST elevated myocardial infarction) Sepsis syndrome Surgical History Colonoscopy - MAC (11/10/16) Orchiectomy, Radical Left, s/p trauma Repair, ACL Right-Age 17 S/P CABG x 3 (04/11/22) [facility] Family History Father , [place]? at age 79. Essential hypertension Myocardial infarction Maternal Aunt Neoplasm Adnexa NOS Maternal Grandmother Neoplasm Adnexa NOS Mother , CVA & PNA at age 81. Essential hypertension Stroke Paternal Grandfather Myocardial infarction Social History Smoking/Tobacco Use Status: Former Tobacco Use Smoking risk assessment performed?: Yes Alcohol Intake: current Alcohol Intake frequency: a few times a month Drug use: Never Substance use type: does not use Adopted: No Caregiver/Support person: No Household members: spouse, family and children Number of Children: 2 number of grandchildren: 4 Communication Needs: None Education Level: college Details: Some College Do you need help understanding health information?: Rarely Pets and animals: No Sexually active: No Do you think of yourself as: straight/heterosexual Current gender identity: male What is your relationship status?: How often do you talk on the phone with friends or family?: once per week How often do you get together with friends or relatives?: once per week Do you belong to any clubs or organized social groups?: no Panel score (0-1 are the most socially isolated patients): 1 What type of physical activity do you participate in: resistance training Duration: < 15 minutes/day Frequency: 1-2 times per week Chantell/Mandaen: Zoroastrianism Special chantell needs: No Seatbelt use: always Drive intox or ride w/intox transport truck driver: No Do you feel safe at home: Yes Do you feel safe in your relationship?: Yes Exam Const General: cooperative and no acute distress HENMT Mouth: moist mucous membranes Eyes Conjunctivae: normal conjunctivae Sclera: normal sclerae Neck Neck: trachea midline and supple Resp Auscultation: no rales, no rhonchi and wheezes (mild bilateral) Cardio Rate: tachycardic Rhythm: regular rhythm GI Palpation: soft, not firm, no guarding, no masses, not rigid and nontender Skin General skin exam: no rashes or lesions noted Neuro General: patient alert, patient awake and tone normal Extrem General: no calf tenderness and edema Laterality: bilateral (rt>lt) Psych Appearance: grossly normal Mental Status: mental status grossly normal Speech and Movement: speech and movement normal Course Vital Signs Vital signs: Vital Signs Temperature 36.8 C 05/03/22 12:38 Pulse 122 H 05/03/22 12:38 Respiratory Rate 24 05/03/22 12:38 Pulse Oximetry 96 05/03/22 12:38 Temperature 36.8 C 05/03/22 12:38 Temperature Source Temporal Artery Scan 05/03/22 12:38 Pulse 122 H 05/03/22 12:38 Respiratory Rate 24 05/03/22 12:38 Respiratory Effort Short of Breath 05/03/22 12:37 Blood Pressure 135/88 05/03/22 12:39 Pulse Oximetry 96 05/03/22 12:38 Lab/Test Results Lab/Test Results: Laboratory Tests Range/Units 05/03/22 05/03/22 05/03/22 12:50 12:50 13:17 WBC (4.4-10.8) 10^3/uL 9.09 RBC (4.36-5.78) 10^6/uL 3.38 L Hgb (13.5-17.5) g/dL 10.4 L Hct (40.0-50.0) % 34.4 L MCV (80-95) fL 102 H MCH (27.0-33.0) pg 30.8 MCHC (32.0-36.0) % 30.2 L RDW (11.8-14.1) % 15.2 H Plt Count (130-400) 10^3/uL 393 MPV (8.0-11.0) fL 9.0 Immature Gran % 0.6 Neutrophils % 74.5 Lymphocytes % 11.6 Monocytes % 10.3 Eosinophils % 2.3 Basophils % 0.7 Nucleated RBC % (0.0-0.3) % 0.0 Absolute Neutrophils (1.2-6.7) 10^3/uL 6.78 H Absolute Lymphocytes (1.2-3.4) 10^3/uL 1.05 L Absolute Monocytes (0.1-0.8) 10^3/uL 0.94 H Absolute Eosinophils (0.0-0.7) 10^3/uL 0.21 Absolute Basophils (0.0-0.2) 10^3/uL 0.06 Sodium (136-145) mmol/L 144 Potassium (3.5-5.1) mmol/L 3.8 Chloride (98-107) mmol/L 105 Carbon Dioxide (21.0-32.0) mmol/L 32.5 H Anion Gap (3-11) mmol/L 6.5 BUN (7-18) mg/dL 29 H Creatinine (0.70-1.30) mg/dL 1.7 H Est GFR (CKD-EPI 2020) (mL/min/1.73m2) 42.83 Glucose (74-106) mg/dL 136 H Calcium (8.5-10.1) mg/dL 9.1 Total Bilirubin (0.2-1.0) mg/dL 0.9 AST (15-37) U/L 23 ALT (16-63) U/L 30 Alkaline Phosphatase (46-116) U/L 74 Troponin I (<or=60) ng/L < 50 NT-Pro-B Natriuret Pep (<300) pg/mL 1763 H Total Protein (6.4-8.2) g/dL 7.8 Albumin (3.4-5.0) g/dL 3.6 COVID-19 Source Nasal/Nares
[2022-05-03 13:56] LABS: COVID-19 PCR Negative (Negative)
[2022-05-03] MEDS: Normal Saline Flush 10 ML SYR IVP (14:14)
[2022-05-03] MEDS: Omnipaque 350 MG/ML 100 ML BTL IJ (14:14)
[2022-05-03] MEDS: Normal Saline - Diluent 50 ML VIAL IJ (14:14)
--- NOTE | 2022-05-03 15:05 | DI.VRAD_ITS ---
Addendum created by Rina Barclay MD on 05/03/2022 3:06:56 PM EST: THIS REPORT CONTAINS FINDINGS THAT MAY BE CRITICAL TO PATIENT CARE. The findings were verbally communicated via telephone conference with REY LEACH at 3:06 PM EST on 05/03/2022. The findings were acknowledged and understood. Initial report created on 05/03/2022 3:05:02 PM EST: PROCEDURE INFORMATION: Exam: CTA Chest With Contrast Exam date and time: 05/03/2022 2:03 PM Age: 71 years old Clinical indication: Pain; Chest pressure; Prior surgery TECHNIQUE: Imaging protocol: Computed tomographic angiography of the chest with contrast. 3D rendering (Not supervised by radiologist): MIP and/or 3D reconstructed images were created by the technologist. COMPARISON: CT CHEST PE CTA 06/30/2020 6:23 PM FINDINGS: Pulmonary arteries: No evidence of pulmonary embolus to the segmental level. Aorta: No aneurysm of the aorta. No dissection of the aorta. Lungs: Consolidation in the right lower lobe may represent atelectasis or pneumonia.. Pleural spaces: Moderate right pleural effusion.. Small left pleural effusion. Heart: Loculated pleural collection anterior to the heart and anterior to the left frontal lobe 12.8 x 4.3 cm and 13 Hounsfield units. It is adjacent to surgical clips (series 4 image 22 -16 ) It blends with the pericardial effusion. The pericardial effusion is 2.9 cm. Lymph nodes: Unremarkable. No enlarged lymph nodes. Bones/joints: Unremarkable. No acute fracture. Soft tissues: Unremarkable. IMPRESSION: 1. Moderate right pleural effusion.. Small left pleural effusion. 2. Loculated pleural collection anterior to the heart and anterior to the left frontal lobe 12.8 x 4.3 cm and 13 Hounsfield units. It is adjacent to surgical clips (series 4 image 22 -16 ) It blends with the pericardial effusion. The pericardial effusion is 2.9 cm. 3. No evidence of pulmonary embolus to the segmental level. 4. Consolidation in the right lower lobe may represent atelectasis or pneumonia.. Dictated and Authenticated by: Rina Barclay MD. Ordering:BRANDI Chopra MD
[2022-05-03] MEDS: Lactated Ringers 250 ML IV (16:20)
[2022-05-03 16:34] LABS: Troponin I < 50 ng/L (<or=60)
== END 2022-05-03 17:00 | disposition short-term general hospital (02) ==
PROVIDERS: Emergency Provider Student in an Organized Health Care Education/Training Program; PCP Nurse Practitioner Family
DX: I31.39 Other pericardial effusion (noninflammatory) (principal); J90 Pleural effusion, not elsewhere classified; I48.92 Unspecified atrial flutter; I48.91 Unspecified atrial fibrillation; I25.10 Atherosclerotic heart disease of native coronary artery without angina pectoris; I13.0 Hypertensive heart and chronic kidney disease with heart failure and stage 1 through stage 4 chronic kidney disease, or unspecified chronic kidney disease; I50.22 Chronic systolic (congestive) heart failure; E11.22 Type 2 diabetes mellitus with diabetic chronic kidney disease; N18.9 Chronic kidney disease, unspecified; D63.1 Anemia in chronic kidney disease; R79.89 Other specified abnormal findings of blood chemistry; J44.9 Chronic obstructive pulmonary disease, unspecified; Z79.82 Long term (current) use of aspirin; Z20.822 Contact with and (suspected) exposure to COVID-19; Z79.01 Long term (current) use of anticoagulants; Z79.51 Long term (current) use of inhaled steroids; Z79.84 Long term (current) use of oral hypoglycemic drugs; I25.2 Old myocardial infarction; Z87.891 Personal history of nicotine dependence
CPT/HCPCS: 71275; 80053; 87635; 93005; 96360; 99285; 83880; 84484; 85025; 93010; J3490

== ENCOUNTER 2022-05-13 14:12 | Emergency (ER) | payer MEDICARE, SELFPAY ==
[2022-05-13] VITALS (15 sets, daily range): BP systolic 80–124; BP diastolic 49–89; PULSE 51–128; RESP 12–29; TEMP 36.6–37.1; O2SAT 95–98
--- NOTE | 2022-05-13 14:00 | RT.EKG_ITS ---
APPROVED REPORT Exam: Resting ECG Reason for Exam: hypotension Patient Location: E HR:110 bpm ECG Measurements Heart Rate 110 AXIS OR [id number] P [id number] QRSd 149 QRS 97 QT 392 T 10 QTc 541 Conclusion Atrial flutter with predominant 2:1 AV block...A-rate 241, multiple Ps RBBB and LPFB...QRSd >120mS, axis(90,210) Anteroseptal infarct, age indeterminate...Q >35mS, T neg, V1-V2 Atrial flutter at a rate of 110. Normal axis. Borderline low voltage chest wall leads similar to pr ior. Prior dated earlier this month. No ST segment abnormalities. T wave inversion in V3. No acut e injury pattern.
--- NOTE | 2022-05-13 14:30 | DI.RAD_ITS ---
Exam(s) XR CHEST 2V PA LATERAL EXAM: XR CHEST 2V PA LATERAL CLINICAL HISTORY: hypotensive. TECHNIQUE: 2D digital imaging was performed. COMPARISON: CR XR CHEST 2V PA LATERAL from 12/09/2021 FINDINGS: 2 views: Compared to the prior study there has been interval sternotomy and CABG. There is cardiomegaly. The mediastinum is not widened. No obvious infiltrates nor pleural effusions. No pulmonary edema. No pneumothorax. No Diann Joni abbie es. IMPRESSION: Interval sternotomy CABG.No pulmonary edema. DATA REPOSITORY: RADIATION DOSE DELIVERED:
--- NOTE | 2022-05-13 14:34 | DI.US_ITS ---
APPROVED REPORT EXAM: Comprehensive 2D, Doppler, and color-flow Echocardiogram Patient Location: ER Room/Bed: 1 Licensed Land Surveyor: Daria Ruiz RDCS (AE) Indications: Hypotension concern for effusion, H/O CABG 4 weeks ago Other Information Study Quality: Adequate. Technically limited study due to body habitus, exam done supine bedside er. Conclusion There is moderate left ventricular systolic dysfunction. EF is approximately 35% with global hypokin esis There is a small anterior, moderate posterior pericardial effusion without evidence of cardiac tampon yin Wall motion Left Ventricle Left ventricular systolic function is moderately decreased. There is global hypokinesis of the left v entricle. 35% Pericardium Mild anterior pericardial effusion. Moderate posterior pericardial effusion. No echo indications of p ericardial tamponade.
--- NOTE | 2022-05-13 14:35 | W.EDPROG ---
Date of service: 05/13/22 Time of Service: 14:35 Medical Decision Making I saw this patient in conjunction with the patient's advanced practitioner. 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 He had recently started some antihypertensive medications. He was found to have hypotension at home. He denies any symptoms. Chart review from [facility] [place] indicates that the patient had a moderate pericardial effusion on a formal TTE on 05/07/2022. This appeared similar to my bedside assessment. I ordered a formal echocardiogram. Discharge Plan Discharge Details Chief Complaint: [facility] Primary Care Provider: Martha Valera ED Provider: Aide Skelton Home Meds and New Rx's Prescriptions: No Action calcium carbonate [Calcium 500] 500 mg calcium (1,250 mg) tablet 500 mg PO DAILY Rx Instructions: States he takes it 3 to 4 times a week. betamethasone valerate 0.1 % ointment 1 applic topical QD-BID PRN (Reason: High Potency (Group 3) topical steroid) Qty: 45 3RF nystatin 100,000 unit/gram powder 1 applic topical BID Qty: 30 0RF Rx Instructions: Apply liberally to groin folds twice daily for 7-14days for yeast. albuterol sulfate 2.5 mg /3 mL (0.083 %) solution for nebulization 2.5 mg inhalation Q4H PRN (Reason: shortness of breath or wheezing) Qty: 90 0RF (DME) comp.stocking,knee,long,medium Misc See Rx Instructions .ROUTE .MEDSUPPLY Qty: 2 0RF Rx Instructions: As directed. Please measure patient for appropriate size. cyanocobalamin (vitamin B-12) 1,000 mcg tablet 1,000 mcg PO DAILY Qty: 90 3RF ammonium lactate 12 % cream 1 applic topical QD-BID PRN (Reason: dry skin) Qty: 140 3RF albuterol sulfate 90 mcg/actuation HFA aerosol inhaler 2 puff inhalation QID PRN (Reason: SOB) Qty: 18 12RF (DME) Blood Glucose Test Strip See Rx Instructions .ROUTE .MEDSUPPLY Qty: 100 3RF Rx Instructions: As directed to check blood glucose daily. No insulin. Dispense covered brand. (DME) lancets Misc See Rx Instructions .ROUTE .MEDSUPPLY Qty: 100 3RF Rx Instructions: As directed to check blood glucose daily. No insulin. Dispense covered brand. aspirin 81 mg tablet,delayed release (DR/EC) 81 mg PO DAILY glipizide 5 mg tablet extended release 24hr 5 mg PO DAILY Qty: 90 3RF furosemide 20 mg tablet 20 mg PO DAILY budesonide-formoterol [Symbicort] 160-4.5 mcg/actuation HFA aerosol inhaler 2 puff inhalation BID PRN Eliquis 5 mg tablet 5 mg PO BID Qty: 60 10RF Entresto 24-26 mg tablet 1 tab PO BID Qty: 60 3RF spironolactone 25 mg tablet 12.5 mg PO DAILY prednisone 5 mg tablet 5 mg PO .daily x 7 days metoprolol succinate 100 mg tablet extended release 24 hr 100 mg PO BID (DME) blood-glucose meter [[email or web address]] Kit See Rx Instructions .ROUTE .MEDSUPPLY Qty: 1 0RF Rx Instructions: As directed atorvastatin 80 mg tablet 80 mg PO 1XD Patient Comments: TAKE 1 TABLET BY MOUTH EVERY EVENING acetaminophen 500 mg Capsule 1,000 mg PO Q6H PRN metformin 500 mg tablet 500 mg PO BID POCUS Exam (ED) Limited Cardiac Exam DATE OF EXAM: 05/13/22 TIME OF EXAM: 14:39 REASON FOR EXAM: Hypotension VISUALIZED STRUCTURES: Four Chambers, Left atrium, Left ventricle and Interventricular septum VIEW OBTAINED: Apical 4-Chamber, Parasternal long-axis and Subxiphoid PERTINENT FINDINGS/IMPRESSION: LV dysfunction, Pericardial effusion and Other Moderate squeeze, aortic outflow tract less than 4 cm, RV less than LV, moderate pericardial effusion Exam complete
--- NOTE | 2022-05-13 14:43 | ED.GENADUL_ITS ---
Discharge Plan Disposition Patient Disposition: Home Condition: Stable Discharge Details Clinical Impression: Acute hypotension, Atrial fibrillation, Pleural effusion, Pericardial effusion Primary Care Provider: Martha Valera ED Provider: Av Chaudhry Home Meds and New Rx's Prescriptions: Continued calcium carbonate [Calcium 500] 500 mg calcium (1,250 mg) tablet 500 mg PO DAILY Rx Instructions: States he takes it 3 to 4 times a week. betamethasone valerate 0.1 % ointment 1 applic topical QD-BID PRN (Reason: High Potency (Group 3) topical steroid) Qty: 45 3RF nystatin 100,000 unit/gram powder 1 applic topical BID Qty: 30 0RF Rx Instructions: Apply liberally to groin folds twice daily for 7-14days for yeast. albuterol sulfate 2.5 mg /3 mL (0.083 %) solution for nebulization 2.5 mg inhalation Q4H PRN (Reason: shortness of breath or wheezing) Qty: 90 0RF (DME) comp.stocking,knee,long,medium Misc See Rx Instructions .ROUTE .MEDSUPPLY Qty: 2 0RF Rx Instructions: As directed. Please measure patient for appropriate size. cyanocobalamin (vitamin B-12) 1,000 mcg tablet 1,000 mcg PO DAILY Qty: 90 3RF ammonium lactate 12 % cream 1 applic topical QD-BID PRN (Reason: dry skin) Qty: 140 3RF albuterol sulfate 90 mcg/actuation HFA aerosol inhaler 2 puff inhalation QID PRN (Reason: SOB) Qty: 18 12RF (DME) Blood Glucose Test Strip See Rx Instructions .ROUTE .MEDSUPPLY Qty: 100 3RF Rx Instructions: As directed to check blood glucose daily. No insulin. Dispense covered brand. (DME) lancets Misc See Rx Instructions .ROUTE .MEDSUPPLY Qty: 100 3RF Rx Instructions: As directed to check blood glucose daily. No insulin. Dispense covered brand. aspirin 81 mg tablet,delayed release (DR/EC) 81 mg PO DAILY glipizide 5 mg tablet extended release 24hr 5 mg PO DAILY Qty: 90 3RF budesonide-formoterol [Symbicort] 160-4.5 mcg/actuation HFA aerosol inhaler 2 puff inhalation BID PRN Eliquis 5 mg tablet 5 mg PO BID Qty: 60 10RF spironolactone 25 mg tablet 12.5 mg PO DAILY prednisone 5 mg tablet 5 mg PO .daily x 7 days metoprolol succinate 100 mg tablet extended release 24 hr 100 mg PO BID (DME) blood-glucose meter [OneTouch UltraMini] Kit See Rx Instructions .ROUTE .MEDSUPPLY Qty: 1 0RF Rx Instructions: As directed atorvastatin 80 mg tablet 80 mg PO 1XD Patient Comments: TAKE 1 TABLET BY MOUTH EVERY EVENING acetaminophen 500 mg Capsule 1,000 mg PO Q6H PRN metformin 500 mg tablet 500 mg PO BID Held furosemide 20 mg tablet 20 mg PO DAILY Hold Instructions: Resume on 05/15/22. Please hold tomorrow's dose of Lasix and resume dosing on 05/15/2022 Entresto 24-26 mg tablet 1 tab PO BID Qty: 60 3RF Hold Instructions: Hold this medication until your follow-up appoint with cardiothoracic surgery or cardiology at [facility] Discharge Instructions Instructions: Hypotension (ED) Additional Instructions: Please continue to monitor your blood pressure and return for any severe lightheadedness, passing out, chest pain, or any concerning symptoms. Otherwise at this time I feel that your low blood pressure was due to the medications you were started on. It would be very important to follow the following recommended changes. You will need to hold your Lasix/furosemide for tomorrow's dose and then resume as normal on 05/15/2022. You will need to stop taking Entresto until you follow-up with cardiology or cardiothoracic surgery. If your blood pressure continues to be low please hold 1 dose of spironolactone. Continue to follow fluid recommendations as per cardiothoracic surgery or your discharge instructions. Again if you develop any new or significant worsening of symptoms return immediately to the emergency department for reassessment Referrals: [facility] [Outside] (Please call your cardiothoracic surgeon tomorrow for discussion of your low blood pressure and arrangement of follow-up appointment) Discharge Data Discharge Date/Time-TO BE ENTERED AT DEPARTURE: 05/13/22 20:26 Medical Decision Making <VIRGEN Gaspar - Last Filed: 05/13/22 16:50> Patient is a pleasant 71-year-old male, accompanied by his son, with chief complaint of hypotension. Patient is 1 month status post CABG. Initially, patient did well but subsequently did develop pulmonary effusion as well as a pericardial effusion requiring hospitalization. He went home from [facility] after his repeat admission yesterday. States that he had been feeling well yesterday but was assessed by nursing staff today and was noted to be hypotensive with a systolic in the 70s to 80s over period of time as well as being assessed in different arms. He denies any shortness of breath. No chest pain. Denies feeling lightheaded or woozy. Prior to his assessment when he came in on his recent admission, patient was having syncopal episodes, has not had any since that time. He denies any fevers or chills. They did update his medications and did add new antihypertensive medications to this. Patient denies any missed doses of meds, did take them this morning. On exam, patient appears nontoxic. He is noted to be hypotensive with a blood pressure of 86/59. Normal cardiac auscultation. Bedside limited echo performed by myself and Dr. More without significant abnormality noted. A pericardial effusion was appreciable but we did not note evidence to suggest pericardial tamponade. He does have bilateral lower extremity edema and suffers from peripheral vascular disease, has Unna boots bilaterally. Patient is currently suffering from asymptomatic hypotension in the setting of recent CABG. Plan to evaluate for possible cardiac etiology and will obtain echo if possible as well as labs and chest x-ray. Also consider that this could be associated with medication changes. He is not having any abdominal pain, chest pain or back pain. He is not exhibiting evidence to suggest AAA or continued bleeding from his recent surgery. EKG obtained and reviewed by Dr. More. Patient in a flutter with a rate of 110. Borderline low voltage similar to prior. No ST elevation. Labs reviewed. No leukocytosis. Hemoglobin slightly low at 11.2 but this is baseline for the patient. Platelets within normal limits. CMP concerning for creatinine of 1.6 which again is patient's baseline. Troponin within normal limits. At the end of my shift, care transition to Av Chaudhry NP. Chest x-ray and echo is pending, patient is currently having echo performed. He did receive 250 cc of fluid and blood pressure is now up to 103/57. <Av Chaudhry NP - Last Filed: 05/15/22 08:34> Patient is a pleasant 71-year-old male, accompanied by his son, with chief complaint of hypotension. Patient is 1 month status post CABG. Initially, patient did well but subsequently did develop pulmonary effusion as well as a pericardial effusion requiring hospitalization. He went home from [facility] after his repeat admission yesterday. States that he had been feeling well yesterday but was assessed by nursing staff today and was noted to be hypotensive with a systolic in the 70s to 80s over period of time as well as being assessed in different arms. He denies any shortness of breath. No chest pain. Denies feeling lightheaded or woozy. Prior to his assessment when he came in on his recent admission, patient was having syncopal episodes, has not had any since that time. He denies any fevers or chills. They did update his medications and did add new antihypertensive medications to this. Patient denies any missed doses of meds, did take them this morning. On exam, patient appears nontoxic. He is noted to be hypotensive with a blood pressure of 86/59. Normal cardiac auscultation. Bedside limited echo performed by myself and Dr. More without significant abnormality noted. A pericardial effusion was appreciable but we did not note evidence to suggest pericardial tamponade. He does have bilateral lower extremity edema and suffers from peripheral vascular disease, has Unna boots bilaterally. Patient is currently suffering from asymptomatic hypotension in the setting of recent CABG. Plan to evaluate for possible cardiac etiology and will obtain echo if possible as well as labs and chest x-ray. Also consider that this could be associated with medication changes. He is not having any abdominal pain, chest pain or back pain. He is not exhibiting evidence to suggest AAA or continued bleeding from his recent surgery. EKG obtained and reviewed by Dr. More. Patient in a flutter with a rate of 110. Borderline low voltage similar to prior. No ST elevation. Labs reviewed. No leukocytosis. Hemoglobin slightly low at 11.2 but this is baseline for the patient. Platelets within normal limits. CMP concerning for creatinine of 1.6 which again is patient's baseline. Troponin within normal limits. At the end of my shift, care transition to Av Chaudhry NP. Chest x-ray and echo is pending, patient is currently having echo performed. He did receive 250 cc of fluid and blood pressure is now up to 103/57. 1600-care received from VIR[facility] [place]. Please see previous documentation. Patient remains in stable condition with no complaints but continued slight hypotension. balance staff inspector did note that patient did have slight lowering of blood pressure with 80s over 50s but patient had approximately 500 mL of urine output. We will give additional 250 fluid bolus pending further results. Reviewed echo results which showed continued mild pericardial effusion with moderate posterior pericardial effusion. No echo indications of pericardial tamponade. LV function is moderately decreased. We will plan on sending imaging to [facility] [place] further consultation with cardiology. Spoke with Debra Yanes with cardiology. She reviewed patient's echo and stated that it actually showed signs of improvement compared to previous one done at their facility. She stated that given that patient was asymptomatic that disposition home with outpatient follow-up was appropriate but did recommend holding Lasix for 1 dose, stopping patient's Entresto, and if patient remains hypotensive to stop spironolactone. Patient to call cardiothoracic surgery office or cardiology at [facility] for arrangement of follow-up appointment. Repeat troponin continues to be undetectable negative and patient remained asymptomatic. Will discharge patient home with above recommendations. Patient discharged with significant other who states clear understanding of discharge instructions. After discussion of diagnosis and plan of care patient and significant other has no further needs, questions, or concerns and states clear understanding to return to the emergency department for any worsening symptoms. This documentation was generated using [employer] dictation system, please disregard any oddities of phrase or misspellings. Lab Data Lab results reviewed: Yes I reviewed the patient's lab results. HPI <VIRGEN Gaspar - Last Filed: 05/13/22 16:50> General Date/Time Provider Initiated Documentation: 05/13/22 14:16 . Limitations to Documentation: no limitations . Information obtained by: patient, family (son), RN notes reviewed and old records reviewed . History of Present Illness 71 year old M presents to the emergency department with the chief complaint of hypotensive, described as moderate, Patient started experiencing this hour(s) (noted first by home health) and it has been constant. No relieving factors improve symptom(s), No exacerbating factors reported . Patient notes no other symptoms.. Related Data Home Medications Medication Instructions Recorded Confirmed blood-glucose meter (OneTouch #1 ea 11/02/19 05/03/22 UltraMini kit) blood sugar diagnostic (Blood #100 ea 12/07/19 05/03/22 Glucose Test strips) lancets #100 ea 12/07/19 05/03/22 comp.stocking,knee,long,medium #2 units 06/01/20 05/03/22 aspirin 81 mg tablet,delayed 81 mg PO DAILY 08/07/20 05/13/22 release calcium carbonate 500 mg calcium 500 mg PO DAILY 08/07/20 05/03/22 (1,250 mg) tablet (Calcium 500) ammonium lactate 12 % topical cream 1 applic topical QD-BID PRN dry 08/17/20 05/03/22 skin #140 grams cyanocobalamin (vitamin B-12) 1,000 mcg PO DAILY #90 tab-caps 08/17/20 05/13/22 1,000 mcg tablet betamethasone valerate 0.1 % 1 applic topical QD-BID PRN High 11/16/20 05/03/22 topical ointment Potency (Group 3) topical steroid #45 grams albuterol sulfate 90 mcg/actuation 2 puff inhalation QID PRN SOB #18 08/05/21 05/13/22 aerosol inhaler grams albuterol sulfate 2.5 mg/3 mL 2.5 mg (3 mL) inhalation Q4H PRN 09/13/21 05/03/22 (0.083 %) solution for nebulization shortness of breath or wheezing #90 mL nystatin 100,000 unit/gram topical 1 applic topical BID #30 grams 09/13/21 05/03/22 powder glipizide 5 mg tablet, extended 5 mg PO DAILY #90 tab-caps 01/08/22 05/13/22 release 24 hr budesonide-formoterol HFA 160 2 puff inhalation BID PRN 03/18/22 05/13/22 mcg-4.5 mcg/actuation aerosol inhaler (Symbicort) furosemide 20 mg tablet 20 mg PO DAILY 03/18/22 05/13/22 apixaban 5 mg tablet (Eliquis) 5 mg PO BID #60 tabs 03/19/22 05/13/22 sacubitril 24 mg-valsartan 26 mg 1 tab PO BID #60 tabs 04/08/22 05/13/22 tablet (Entresto) atorvastatin 80 mg tablet 80 mg PO 1XD 05/03/22 05/13/22 acetaminophen 500 mg capsule 1,000 mg PO Q6H PRN 05/13/22 05/13/22 metformin 500 mg tablet 500 mg PO BID 05/13/22 05/13/22 metoprolol succinate 100 mg 100 mg PO BID 05/13/22 05/13/22 tablet,extended release 24 hr prednisone 5 mg tablet 5 mg PO .daily x 7 days 05/13/22 05/13/22 spironolactone 25 mg tablet 12.5 mg PO DAILY 05/13/22 05/13/22 Previous Rx's Medication Instructions Recorded blood-glucose meter (OneTouch #1 ea 11/02/19 UltraMini kit) blood sugar diagnostic (Blood #100 ea 12/07/19 Glucose Test strips) lancets #100 ea 12/07/19 comp.stocking,knee,long,medium #2 units 06/01/20 ammonium lactate 12 % topical cream 1 applic topical QD-BID PRN dry 08/17/20 skin #140 grams cyanocobalamin (vitamin B-12) 1,000 mcg PO DAILY #90 tab-caps 08/17/20 1,000 mcg tablet betamethasone valerate 0.1 % 1 applic topical QD-BID PRN High 11/16/20 topical ointment Potency (Group 3) topical steroid #45 grams albuterol sulfate 90 mcg/actuation 2 puff inhalation QID PRN SOB #18 08/05/21 aerosol inhaler grams albuterol sulfate 2.5 mg/3 mL 2.5 mg (3 mL) inhalation Q4H PRN 09/13/21 (0.083 %) solution for nebulization shortness of breath or wheezing #90 mL nystatin 100,000 unit/gram topical 1 applic topical BID #30 grams 09/13/21 powder glipizide 5 mg tablet, extended 5 mg PO DAILY #90 tab-caps 01/08/22 release 24 hr apixaban 5 mg tablet (Eliquis) 5 mg PO BID #60 tabs 03/19/22 sacubitril 24 mg-valsartan 26 mg 1 tab PO BID #60 tabs 04/08/22 tablet (Entresto) Allergies Allergy/AdvReac Type Severity Reaction Status Date / Time shellfish derived Allergy Intermediate Hives Verified 05/03/22 12:38 house dust Allergy Mild Verified 05/03/22 12:38 hay fever Allergy Mild runny nose Uncoded 05/03/22 12:38 and cough General Stated Complaint: GenMedical MONY: 3 Review of Systems <VIRGEN Gaspar - Last Filed: 05/13/22 16:50> Constitutional Constitutional: Reports as per HPI, Denies chills, Denies fever(s), Denies headache(s), Denies lethargy and Denies poor appetite Eyes Eyes: Denies change in vision ENT Ears, Nose, Mouth, and Throat: Denies dizziness and Denies headache(s) Cardiovascular Cardiovascular: Reports as per HPI, Denies chest pain, Denies syncope (had episodes prior to last admission, none since), Denies lightheadedness, Denies radiating jaw, neck or arm pain, Denies dyspnea and Denies orthopnea Respiratory Respiratory: Reports as per HPI, Denies chest congestion, Denies cough, Denies pain on inspiration, Denies pain with cough and Denies dyspnea Gastrointestinal Gastrointestinal: Reports as per HPI, Denies abdominal pain, Denies diarrhea, Denies nausea and Denies vomiting Musculoskeletal Musculoskeletal: Reports as per HPI and Denies back pain Integumentary/Breasts Skin/Breast: Reports as per HPI and Denies rash Neurologic Neurologic: Reports as per HPI, Denies dizziness, Denies syncope (had episodes prior to last admission, none since) and Denies headache(s) PFSH <VIRGEN Gaspar - Last Filed: 05/13/22 16:50> All Active Problems (Updated 05/13/22 @ 19:35 by Av Chaudhry NP) Syncope (Chronic) Pericardial effusion (Acute) Pleural effusion (Acute) Acute hypotension (Acute) Cardiomyopathy (Acute) Recurrent cellulitis of lower extremity (Acute) CAD (coronary artery disease) (Chronic) Corns and callosities (Acute) Nail dystrophy (Acute) Hypercapnic respiratory failure (Acute) Personal history of nicotine dependence (Acute) Heart failure, systolic, chronic (Acute) Recurrent infections (Acute) Pleural effusion (Acute) Bacteremia due to Gram-negative bacteria (Acute) CHF (congestive heart failure) (Acute) 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 2 diabetes mellitus (Chronic ~10/2019) Atrial fibrillation (Chronic) Psoriasis (Chronic) Tinea pedis (Acute 10/29/20) [facility] Vitamin B12 deficiency (Chronic) Abnormal nuclear stress test (Acute) Stasis dermatitis of both legs (Acute) CKD (chronic kidney disease) (Acute) Essential hypertension (Chronic) Type 2 diabetes mellitus (Chronic) Venous insufficiency (Chronic) COPD (chronic obstructive pulmonary disease) with emphysema (Chronic) Obesity (Chronic) Hyperlipidemia, unspecified (Chronic) Tobacco use disorder (Chronic) Medical History Anemia Hypothyroidism NSTEMI (non-ST elevated myocardial infarction) Sepsis syndrome Surgical History Colonoscopy - MAC (11/10/16) Orchiectomy, Radical Left, s/p trauma Repair, ACL Right-Age 17 S/P CABG 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 at age 79. Essential hypertension Myocardial infarction Maternal Aunt Neoplasm Adnexa NOS Maternal Grandmother Neoplasm Adnexa NOS Mother , CVA & PNA at age 81. Essential hypertension Stroke Paternal Grandfather Myocardial infarction Social History Smoking/Tobacco Use Status: Former Tobacco Use Smoking risk assessment performed?: Yes Alcohol Intake: current Alcohol Intake frequency: a few times a month Drug use: Never Substance use type: does not use Adopted: No Caregiver/Support person: No Household members: spouse, family and children Number of Children: 2 number of grandchildren: 4 Communication Needs: None Education Level: college Details: Some College Do you need help understanding health information?: Rarely Pets and animals: No Sexually active: No Do you think of yourself as: straight/heterosexual Current gender identity: male What is your relationship status?: How often do you talk on the phone with friends or family?: once per week How often do you get together with friends or relatives?: once per week Do you belong to any clubs or organized social groups?: no Panel score (0-1 are the most socially isolated patients): 1 What type of physical activity do you participate in: resistance training Duration: < 15 minutes/day Frequency: 1-2 times per week Chantell/Religious: Moravian Special chantell needs: No Seatbelt use: always Drive intox or ride w/intox hyster driver: No Do you feel safe at home: Yes Do you feel safe in your relationship?: Yes Exam <VIRGEN Gaspar - Last Filed: 05/13/22 16:50> Const General: cooperative, healthy appearing, comfortable, no acute distress and well developed Nutritional Appearance: average body habitus and well nourished Orientation: alert, awake and oriented x3 HENMT Head: normal to inspection Ears: hearing grossly normal bilaterally Mouth: moist mucous membranes Neck Neck: normal visual inspection and no JVD Chest Chest: abnormal inspection of the chest (well healing midline incision), normal palpation of entire chest wall and no crepitus Resp Effort & Inspection: normal respiratory effort, able to speak in complete sentences and no respiratory distress Auscultation: clear to auscultation bilaterally, no rales, no rhonchi and no wheezes Cardio Rate: regular rate Rhythm: regular rhythm Heart Sounds: S1 normal and S2 normal GI Inspection: normal to inspection, no edema and non-distended Palpation: soft, no hepatosplenomegaly, not firm, no guarding, not rigid and nontender Auscultation: normal bowel sounds Skin General skin exam: no rashes or lesions noted and other (incision healing well) Neuro General: patient alert, patient awake and patient oriented x3 Cognition: normal cognition Speech: speech normal Gait: normal gait Extrem General: normal gait, no calf tenderness bilaterally and pedal edema (darius boot in place bilaterally) Psych Appearance: grossly normal and well kempt Mental Status: mental status grossly normal Speech and Movement: speech and movement normal Course <VIRGEN Gaspar - Last Filed: 05/13/22 16:50> Vital Signs Vital signs: Vital Signs Temperature 36.6 C 05/13/22 14:17 Pulse 111 H 05/13/22 14:17 Respiratory Rate 16 05/13/22 14:17 Blood Pressure 86/59 L 05/13/22 14:17 Pulse Oximetry 97 05/13/22 14:17 Temperature 36.6 C 05/13/22 14:17 Pulse 111 H 05/13/22 14:17 Respiratory Rate 16 05/13/22 14:17 Respiratory Effort Normal 05/13/22 14:30 Respiratory Depth Normal 05/13/22 14:30 Respiratory Pattern Normal 05/13/22 14:30 Blood Pressure 86/59 L 05/13/22 14:17 Pulse Oximetry 97 05/13/22 14:17 Oxygen Delivery Method Room Air 05/13/22 14:17 Oxygen Flow Rate 0 05/13/22 14:17 Pain Level 0 05/13/22 14:17 Sign Out <VIRGEN Gaspar - Last Filed: 05/13/22 16:50> Sign Out Data: Sign Out Comment: Care transition from myself to Av Chaudhry NP. Here for chief complaint of hypotension. 1 month ago had a CABG. Was here 1 week ago and diagnosed with a pleural effusion and pericardial effusion. Treated at [facility] and discharged yesterday. Hypotensive by home care nursing staff today. Bedside echo performed by myself with Dr. More without evidence of severe pericardial effusion. Alternatively, hypotension may be associated with medication changes if chronic disease pathology has been ruled out. Echo pending. Last updated by Aide Skelton PA at 05/13/22 16:09
[2022-05-13 14:49] LABS: Abs Immature Grans 0.03 10^3/uL (0.0-0.06); Absolute Basophil Count 0.07 10^3/uL (0.0-0.2); Absolute Eosinophil Count 0.32 10^3/uL (0.0-0.7); Absolute Lymphocyte Count 0.95 10^3/uL (1.2-3.4); Absolute Monocyte Count 0.95 10^3/uL (0.1-0.8); Absolute Neutrophil Count 6.17 10^3/uL (1.2-6.7); Basophils % 0.8; Eosinophils % 3.8; HCT 36.4 % (40.0-50.0); HGB 11.2 g/dL (13.5-17.5); Immature Grans % 0.4; Lymphocytes % 11.2; MCH 29.9 pg (27.0-33.0); MCHC 30.8 % (32.0-36.0); MCV 97 fL (80-95); MPV 8.6 fL (8.0-11.0); Monocytes % 11.2; Neutrophils % 72.6; Platelet Count 353 10^3/uL (130-400); RBC 3.75 10^6/uL (4.36-5.78); RDW 14.9 % (11.8-14.1); RDW-SD 53.1 fL; WBC 8.49 10^3/uL (4.4-10.8)
[2022-05-13] MEDS: Lactated Ringers 250 ML IV ×2 (15:02→17:20)
[2022-05-13 15:11] LABS: ALT 25 U/L (16-63); AST 13 U/L (15-37); Albumin 3.4 g/dL (3.4-5.0); Alkaline Phosphatase 72 U/L (46-116); Anion Gap 6.5 mmol/L (3-11); BUN 28 mg/dL (7-18); CO2 30.5 mmol/L (21.0-32.0); CREATININE 1.6 mg/dL (0.70-1.30); Chloride 105 mmol/L (98-107); Estimated GFR 46.06 (mL/min/1.73m2); Glucose 162 mg/dL (74-106); Magnesium 2.1 mg/dL (1.8-2.4); Potassium 4.6 mmol/L (3.5-5.1); Sodium 142 mmol/L (136-145); Total Protein 7.2 g/dL (6.4-8.2); Troponin I < 50 ng/L (<or=60)
--- NOTE | 2022-05-13 15:46 | NUR.NOTE ---
Nursing Note: Pt leaving rm to XR via stretcher.
--- NOTE | 2022-05-13 16:33 | NUR.NOTE ---
Nursing Note: Pt assisted OOB to use urinal. No other need voiced at this time. Call light in reach
[2022-05-13 18:52] LABS: Troponin I < 50 ng/L (<or=60)
--- NOTE | 2022-05-13 19:02 | NUR.NOTE ---
Nursing Note: Report given to Roya TURCIOS
== END 2022-05-13 20:26 | disposition home or self-care (01) ==
PROVIDERS: Physician Assistant; Emergency Provider Nurse Practitioner Family; PCP Nurse Practitioner Family
DX: I95.9 Hypotension, unspecified (principal); I48.91 Unspecified atrial fibrillation; J90 Pleural effusion, not elsewhere classified; I31.39 Other pericardial effusion (noninflammatory); R60.0 Localized edema; D64.9 Anemia, unspecified; I25.2 Old myocardial infarction; E03.9 Hypothyroidism, unspecified; Z79.82 Long term (current) use of aspirin; Z95.1 Presence of aortocoronary bypass graft; Z79.51 Long term (current) use of inhaled steroids; Z87.891 Personal history of nicotine dependence
CPT/HCPCS: 80053; 93005; 93306; 93308; 96360; 99284; 71046; 83735; 84484; 85025; 93010; 99285

== ENCOUNTER 2022-05-23 02:39 | Outpatient (CLI) | payer MEDICARE, SELFPAY ==
[2022-05-23 08:21] LABS: Abs Immature Grans 0.05 10^3/uL (0.0-0.06); Absolute Basophil Count 0.06 10^3/uL (0.0-0.2); Absolute Lymphocyte Count 1.41 10^3/uL (1.2-3.4); Absolute Monocyte Count 1.14 10^3/uL (0.1-0.8); Absolute Neutrophil Count 6.95 10^3/uL (1.2-6.7); Basophils % 0.6; HCT 34.4 % (40.0-50.0); HGB 10.7 g/dL (13.5-17.5); Immature Grans % 0.5; Lymphocytes % 14.4; MCH 29.8 pg (27.0-33.0); MCHC 31.1 % (32.0-36.0); MCV 96 fL (80-95); Monocytes % 11.6; Neutrophils % 70.9; Platelet Count 359 10^3/uL (130-400); RBC 3.59 10^6/uL (4.36-5.78); RDW 14.7 % (11.8-14.1); RDW-SD 51.6 fL; WBC 9.81 10^3/uL (4.4-10.8)
[2022-05-23 08:43] LABS: ALT 56 U/L (16-63); AST 38 U/L (15-37); Albumin 3.3 g/dL (3.4-5.0); Alkaline Phosphatase 71 U/L (46-116); Anion Gap 8.9 mmol/L (3-11); BUN 34 mg/dL (7-18); Bilirubin, Total 1.2 mg/dL (0.2-1.0); CO2 27.1 mmol/L (21.0-32.0); CREATININE 1.6 mg/dL (0.70-1.30); Calcium 9.3 mg/dL (8.5-10.1); Calculated LDL 38 mg/dL (<100); Chloride 104 mmol/L (98-107); Cholesterol 85 mg/dL (<200); Estimated GFR 46.06 (mL/min/1.73m2); Glucose 115 mg/dL (74-106); HDL Cholesterol 41 mg/dL (40-60); Sodium 140 mmol/L (136-145); TSH (W/Ref FT4) 8.88 uIU/mL (0.36-3.74); Total Protein 7.8 g/dL (6.4-8.2); Triglyceride 34 mg/dL (<150)
[2022-05-23 09:19] LABS: Hemoglobin A1C 6.1 % (<5.7)
[2022-05-23 09:41] LABS: FREE T4 1.34 ng/dL (0.76-1.46)
== END 2022-05-23 02:40 | disposition home or self-care (01) ==
LOC: LBO 02:42
PROVIDERS: PCP Nurse Practitioner Family; Referring Provider Nurse Practitioner Family; Visit Provider Nurse Practitioner Family
DX: E11.9 Type 2 diabetes mellitus without complications (principal)
CPT/HCPCS: 36415; 80053; 80061; 82043; 82570; 83036; 84439; 84443; 85025

== ENCOUNTER 2022-05-26 17:49 | Outpatient (REF) | payer MEDICARE, SELFPAY ==
[2022-05-26 18:46] LABS: COMMENT (LAB VIEW ONLY) 89.69 mg/dL; Microalb ug/mg Crea 77.6 ug/mg Cr
== END 2022-05-26 17:50 | disposition home or self-care (01) ==
LOC: LBN 17:49
PROVIDERS: PCP Nurse Practitioner Family; Visit Provider Nurse Practitioner Family
DX: E11.65 Type 2 diabetes mellitus with hyperglycemia (principal)
CPT/HCPCS: 82043; 82570

== ENCOUNTER 2022-05-28 01:19 | Outpatient (CLI) | payer MEDICARE, SELFPAY ==
--- NOTE | 2022-05-28 10:53 | DI.RAD_ITS ---
Exam(s) XR CHEST 2V PA LATERAL EXAM: XR CHEST 2V PA LATERAL CLINICAL HISTORY: S/P CABG,Z95.1,EVAL FOR PLEURAL EFFUSIONS AND ENLARGED MEDIASTINUM TECHNIQUE: 2D digital imaging was performed of the chest. Two images were obtained. PA and lateral views were obtained. COMPARISON: CR XR CHEST 2V PA LATERAL from 05/13/2022 FINDINGS: MEDIASTINUM: Normal. HEART: Normal. Status post CABG. PULMONARY VASCULATURE: Normal. LUNGS: Lungs are hyperinflated suggesting underlying COPD. On the lateral view there does appear to be an infiltrate in the right lower lobe with air bronchograms. PLEURAL SPACE: There is an opacity along the right costophrenic angle. Its appearance suggests pleur al effusion which is possibly loculated. There is no left pleural effusion. There is no pneumothora x. BONE:Within normal limits for the patient's age. OTHER FINDINGS:Normal. IMPRESSION: 1. Findings suspicious for loculated right pleural effusion. 2. Right lower lobe infiltrate which may represent atelectasis or pneumonia. 3. A CT scan of the chest should be considered for further evaluation. Unexpected findings DATA REPOSITORY: RADIATION DOSE DELIVERED:
== END 2022-05-28 01:39 ==
LOC: DI 01:19
PROVIDERS: PCP Nurse Practitioner Family; Visit Provider Thoracic Surgery (Cardiothoracic Vascular Surgery)
DX: J44.9 Chronic obstructive pulmonary disease, unspecified (principal); Z95.1 Presence of aortocoronary bypass graft; R91.8 Other nonspecific abnormal finding of lung field; J90 Pleural effusion, not elsewhere classified
CPT/HCPCS: 71046

== ENCOUNTER 2022-06-02 04:05 | Outpatient (CLI) | payer MEDICARE, SELFPAY ==
[2022-06-02 08:47] LABS: Abs Immature Grans 0.02 10^3/uL (0.0-0.06); Absolute Basophil Count 0.05 10^3/uL (0.0-0.2); Absolute Eosinophil Count 0.32 10^3/uL (0.0-0.7); Absolute Lymphocyte Count 1.12 10^3/uL (1.2-3.4); Absolute Monocyte Count 0.68 10^3/uL (0.1-0.8); Absolute Neutrophil Count 5.39 10^3/uL (1.2-6.7); Basophils % 0.7; Eosinophils % 4.2; HCT 35.5 % (40.0-50.0); HGB 10.7 g/dL (13.5-17.5); Immature Grans % 0.3; Lymphocytes % 14.8; MCH 29.1 pg (27.0-33.0); MCHC 30.1 % (32.0-36.0); MCV 97 fL (80-95); MPV 8.9 fL (8.0-11.0); Platelet Count 356 10^3/uL (130-400); RBC 3.68 10^6/uL (4.36-5.78); RDW 15.9 % (11.8-14.1); WBC 7.58 10^3/uL (4.4-10.8)
[2022-06-02 09:08] LABS: ALT 98 U/L (16-63); AST 27 U/L (15-37); Albumin 3.2 g/dL (3.4-5.0); Alkaline Phosphatase 78 U/L (46-116); BUN 30 mg/dL (7-18); CREATININE 1.7 mg/dL (0.70-1.30); Calcium 9.1 mg/dL (8.5-10.1); Chloride 105 mmol/L (98-107); Estimated GFR 42.83 (mL/min/1.73m2); Glucose 136 mg/dL (74-106); Potassium 4.2 mmol/L (3.5-5.1); Sodium 142 mmol/L (136-145); TSH (W/Ref FT4) 6.51 uIU/mL (0.36-3.74); Total Protein 7.7 g/dL (6.4-8.2)
[2022-06-02 09:36] LABS: NT-proBNP 2081 pg/mL (<300)
--- NOTE | 2022-06-02 10:00 | DI.CT_ITS ---
Exam(s) CT CHEST WO EXAM: CT CHEST WO CLINICAL HISTORY: concern for loculated pleural effusion, J90; Recurrent infections, B99.9. TECHNIQUE: Multi planar reconstructions were performed. CONTRAST MATERIAL: None COMPARISON: CT CT CHEST PE CTA from 05/03/2022 CR XR CHEST 2V PA LATERAL from 05/28/2022 FINDINGS: CHEST: LUNGS: There is a moderate size right pleural effusion which now appears somewhat loculated. There i s no associated rib destruction. Some volume loss in the basal segments of the right lower lobe is n oted. No pleural effusion evident on the opposite-left side. No infiltrate nor nodules on the left side. MEDIASTINUM: There is no obvious hilar nor mediastinal adenopathy. Visualized thyroid unremarkable.No obvious axillary adenopathy CARDIAC: Sternotomy wires are again noted. Heart size unchanged. The size of the previously present pericardial effusion has significantly decreased. Thickness of the pericardial effusion is presentl y maximum 4 mm.Caliber of the thoracic aorta is within normal limits. VISUALIZED UPPER ABDOMEN:There is perihepatic ascites noted. Liver appears somewhat cirrhotic. Sple en size normal. No adrenal masses. Cysts noted in the upper pole of the right kidney. Kidneys are not completely included in the field of view. OSSEOUS: No significant osseous lesions.. IMPRESSION: 1. Compared to the CT scan of 05/03/2022 there is again noted evidence of previous sternotomy. The s ize of the pericardial effusion has significantly decreased, previously measuring up to 2 cm thicknes s and presently measuring only 4 mm thickness. 2. There is a moderate size right pleural effusion evident. This appears loculated. There is no ple ural effusion on the opposite-left side. 3. There is presently some perihepatic ascites, more so than previous. No splenomegaly. RADIATION DOSE DELIVERED: 720.08mGy.cm Total DLP DATA REPOSITORY: All CT scans at this facility are submitted to the National Radiology Data Registry (NRDR) Dose Index Registry (DIR) with the [employer] (ACR). RADIATION OPTIMIZATION: All CT scans at this facility use at least one of these dose optimization te chniques: automated exposure control; mA and/or kV adjustment per patient size (includes targeted exa ms where dose is matched to clinical indication); or iterative reconstruction.
[2022-06-02 10:14] LABS: FREE T4 1.25 ng/dL (0.76-1.46)
== END 2022-06-02 04:06 | disposition home or self-care (01) ==
PROVIDERS: PCP Nurse Practitioner Family; Visit Provider Nurse Practitioner Family
DX: I10 Essential (primary) hypertension (principal); E11.9 Type 2 diabetes mellitus without complications; I50.9 Heart failure, unspecified; I31.39 Other pericardial effusion (noninflammatory); J90 Pleural effusion, not elsewhere classified; R18.8 Other ascites
CPT/HCPCS: 36415; 71250; 80053; 83880; 84439; 84443; 85025

== ENCOUNTER 2022-06-02 15:43 | Inpatient (IN) | payer MEDICARE, SELFPAY ==
[2022-06-02] VITALS (16 sets, daily range): BP systolic 101–154; BP diastolic 45–141; PULSE 98–131; RESP 15–30; TEMP 36.4–36.9; O2SAT 94–100
--- NOTE | 2022-06-02 15:59 | W.ED.GENAD ---
Discharge Plan Disposition Patient Disposition: Admit to [facility] Condition: Poor Discharge Details Chief Complaint: SOB Clinical Impression: Loculated pleural effusion Admit Date/Time: 06/02/22 20:11 Admit Provider: Davin May Attending Provider: Davin May Primary Care Provider: Martha Valera ED Provider: Aide Skelton Discharge Data Discharge Date/Time-TO BE ENTERED AT DEPARTURE: 06/02/22 20:46 Medical Decision Making Patient is a 71 year old male, PMH of pericardial effusion, pleural effusion, cardiomyopathy, CAD, HF, type II DM, a. fib, CKD, HTN, COPD, obesity, presenting today with c/c of loculated pleural effusion. Patient has been having chronic pleural effusions, had imaging in f/u today and was noted to have complication which is new for him. He states that his primary care and pulmonology team and been working together and have increased his furosemide. Despite this, he continues to have his chronic shortness of breath. He denies any acute change in this. States that he also has mild chronic cough but again, no change in this. Denies any fevers or chills. Denies any chest pain. No GI upset or abdominal pain. He has noted increased girth of his abdomen. Patient also suffers from chronic bilateral lower EXTR edema which he denies being significantly worsened from baseline, patient does have bilateral Unna boots on place by home health every . Patient had outpatient CT scan of for reevaluation of his effusions and was noted to have a loculated effusion. Of note, the patient also was recently treated for pericardial effusion and this is significantly improved. After this imaging was obtained, patient was advised to come to the emergency department for continued care. On exam, patient appears nontoxic. He was seen by myself recently and he appears unchanged from his baseline. He does have diminished sounds in the right side, particularly at the mid and lower base. Patient is tachycardic with a heart rate of 120. He states that this is baseline for him since his previous hospitalizations. He does have a notable lower extremity edema but Unna boots are in place. Will not disrupt these. Patient denies any increased pain. He has no posterior calf pain with palpation. Patient is anticoagulated and has not missed any doses. His abdomen is rather firm but nontender. No pitting edema. Consulted with general surgery regarding loculated pleural effusion. Also begin the patient on IV antibiotics. Broad spectrum picked per UTD guidelines. Dr. Bah evaluated the patient with an ultrasound and is not able to find a safe place to complete the drainage. Recommends IR intervention. [place] [facility] [place] and have sent imaging down to them. consultation pending with . Lab reviewed. No leukocytosis, stable H&H. Platelet 356. Lactate 1.9. Creatinine elevated at 1.7. This is baseline for the patient. BNP elevated at 1999, this appears to be fairly baseline. TSH elevated, free T4 WNL. COVID negative. Spoke again with transfer center. They advise that patient is able to have down and back for IR treatment tomorrow. however, they do not have bed availability at this time. Advised admission here until this can be completed. Discussed with patient, patient advised that he would prefer to be treated as such as family is local. Agrees to plan for intervention tomorrow with continuation of abx while here. Consulted with Dr. May who agrees to admission with plan to have IR intervention on loculated pulmonary effusion tomorrow at . HPI General Date/Time Provider Initiated Documentation: 06/02/22 15:45. Limitations to Documentation: no limitations. Information obtained by: patient, RN notes reviewed and old records reviewed. History of Present Illness 71 year old M presents to the emergency department with the chief complaint of loculated pleural effusion, described as mild (patient denies acute change in his chronic symptoms), Quality is described as other (denies any pain currently), Patient started experiencing this unknown (has had chronic effusions, had imaging today in f/u showing loculatd effusion) and it has been constant. No relieving factors improve symptom(s), No exacerbating factors reported . Patient notes cough (chronic, no change), malaise and shortness of breath (chronic, states this is unchanged); denies chest pain, diaphoresis, fever/chills, headaches, loss of appetite, nausea/vomiting, rash, syncope and weakness. Patient did receive the following treatments prior to arrival, other (furosemide) Related Data Home Medications Medication Instructions Recorded Confirmed blood-glucose meter (OneTouch #1 ea 11/02/19 06/02/22 UltraMini kit) comp.stocking,knee,long,medium #2 units 06/01/20 06/02/22 aspirin 81 mg tablet,delayed 81 mg PO DAILY 08/07/20 06/02/22 release ammonium lactate 12 % topical cream 1 applic topical QD-BID PRN dry 08/17/20 06/02/22 skin #140 grams cyanocobalamin (vitamin B-12) 1,000 mcg PO DAILY #90 tab-caps 08/17/20 06/02/22 1,000 mcg tablet betamethasone valerate 0.1 % 1 applic topical QD-BID PRN High 11/16/20 06/02/22 topical ointment Potency (Group 3) topical steroid #45 grams nystatin 100,000 unit/gram topical 1 applic topical BID #30 grams 09/13/21 06/02/22 powder glipizide 5 mg tablet, extended 5 mg PO DAILY #90 tab-caps 01/08/22 06/02/22 release 24 hr budesonide-formoterol HFA 160 2 puff inhalation BID PRN 03/18/22 06/02/22 mcg-4.5 mcg/actuation aerosol inhaler (Symbicort) atorvastatin 80 mg tablet 80 mg PO 1XD 05/03/22 06/02/22 acetaminophen 500 mg capsule 1,000 mg PO Q6H PRN 05/13/22 06/02/22 metformin 500 mg tablet 500 mg PO BID 05/13/22 06/02/22 metoprolol succinate 100 mg 100 mg PO BID 05/13/22 06/02/22 tablet,extended release 24 hr apixaban 5 mg tablet (Eliquis) 5 mg PO BID #180 tabs 05/15/22 06/02/22 blood sugar diagnostic (Blood #100 ea 05/15/22 06/02/22 Glucose Test strips) lancets #100 ea 05/15/22 06/02/22 furosemide 20 mg tablet See Rx Instructions PO BID #270 05/30/22 06/02/22 tabs albuterol sulfate 90 mcg/actuation 2 puff inhalation QID PRN SOB #18 06/02/22 06/02/22 aerosol inhaler grams Previous Rx's Medication Instructions Recorded blood-glucose meter (OneTouch #1 ea 11/02/19 UltraMini kit) comp.stocking,knee,long,medium #2 units 06/01/20 ammonium lactate 12 % topical cream 1 applic topical QD-BID PRN dry 08/17/20 skin #140 grams cyanocobalamin (vitamin B-12) 1,000 mcg PO DAILY #90 tab-caps 08/17/20 1,000 mcg tablet betamethasone valerate 0.1 % 1 applic topical QD-BID PRN High 11/16/20 topical ointment Potency (Group 3) topical steroid #45 grams nystatin 100,000 unit/gram topical 1 applic topical BID #30 grams 09/13/21 powder glipizide 5 mg tablet, extended 5 mg PO DAILY #90 tab-caps 01/08/22 release 24 hr apixaban 5 mg tablet (Eliquis) 5 mg PO BID #180 tabs 05/15/22 blood sugar diagnostic (Blood #100 ea 05/15/22 Glucose Test strips) lancets #100 ea 05/15/22 furosemide 20 mg tablet See Rx Instructions PO BID #270 05/30/22 tabs albuterol sulfate 90 mcg/actuation 2 puff inhalation QID PRN SOB #18 06/02/22 aerosol inhaler grams Allergies Allergy/AdvReac Type Severity Reaction Status Date / Time shellfish derived Allergy Intermediate Hives Verified 06/02/22 15:58 house dust Allergy Mild Verified 06/02/22 15:58 hay fever Allergy Mild runny nose Uncoded 06/02/22 15:58 and cough General Stated Complaint: SOB MONY: 3 Review of Systems Constitutional Constitutional: Reports as per HPI, Denies chills, Denies fever(s), Denies headache(s) and Denies poor appetite Eyes Eyes: Denies change in vision ENT Ears, Nose, Mouth, and Throat: Denies dizziness and Denies headache(s) Cardiovascular Cardiovascular: Reports as per HPI Respiratory Respiratory: Reports as per HPI, Denies chest congestion, Denies pain on inspiration and Denies pain with cough Gastrointestinal Gastrointestinal: Reports as per HPI, Denies abdominal pain, Denies diarrhea, Denies nausea and Denies vomiting Musculoskeletal Musculoskeletal: Reports as per HPI Integumentary/Breasts Skin/Breast: Reports as per HPI and Denies rash Neurologic Neurologic: Reports as per HPI, Denies dizziness and Denies headache(s) PFSH All Active Problems (Updated 06/03/22 @ 22:23 by VRIGEN Gaspar) Loculated pleural effusion (Acute) Cardiomyopathy (Acute) CAD (coronary artery disease) (Chronic) Corns and callosities (Acute) Nail dystrophy (Acute) Hypercapnic respiratory failure (Acute) Heart failure, systolic, chronic (Acute) Recurrent infections (Chronic) H/o recurrent leg cellulitis and sepsis CHF (congestive heart failure) (Acute) 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 2 diabetes mellitus (Chronic ~10/2019) Atrial fibrillation (Chronic) Psoriasis (Chronic) Tinea pedis (Acute 10/29/20) [facility] [place] Vitamin B12 deficiency (Chronic) Stasis dermatitis of both legs (Acute) CKD (chronic kidney disease) (Acute) Essential hypertension (Chronic) Type 2 diabetes mellitus (Chronic) Venous insufficiency (Chronic) COPD (chronic obstructive pulmonary disease) with emphysema (Chronic) Obesity (Chronic) Hyperlipidemia, unspecified (Chronic) Tobacco use disorder (Chronic) Medical History Anemia Hypothyroidism NSTEMI (non-ST elevated myocardial infarction) Sepsis syndrome Surgical History Colonoscopy - MAC (11/10/16) Orchiectomy, Radical Left, s/p trauma Repair, ACL Right-Age 17 S/P CABG x 3 (04/11/22) [facility] Family History Father , NE? at age 79. Essential hypertension Myocardial infarction Maternal Aunt Neoplasm Adnexa NOS Maternal Grandmother Neoplasm Adnexa NOS Mother , CVA & PNA at age 81. Essential hypertension Stroke Paternal Grandfather Myocardial infarction Social History Smoking/Tobacco Use Status: Former Tobacco Use Smoking risk assessment performed?: Yes Alcohol Intake: current Alcohol Intake frequency: holidays/special occasions only Drug use: Never Substance use type: does not use Adopted: No Caregiver/Support person: No Household members: spouse, family and children Number of Children: 2 number of grandchildren: 4 Communication Needs: None Education Level: college Details: Some College Do you need help understanding health information?: Rarely Pets and animals: No Sexually active: No Do you think of yourself as: straight/heterosexual Current gender identity: male What is your relationship status?: How often do you talk on the phone with friends or family?: once per week How often do you get together with friends or relatives?: once per week Do you belong to any clubs or organized social groups?: no Panel score (0-1 are the most socially isolated patients): 1 What type of physical activity do you participate in: resistance training Duration: < 15 minutes/day Frequency: 1-2 times per week Chantell/Lutheran: Yarsani Special chantell needs: No Seatbelt use: always Drive intox or ride w/intox rivet driver: No Do you feel safe at home: Yes Do you feel safe in your relationship?: Yes Exam Const General: cooperative, comfortable, no acute distress, well developed and ill appearing chronically Nutritional Appearance: well nourished and overweight Orientation: alert, awake and oriented x3 HENMT Head: normal to inspection Ears: hearing grossly normal bilaterally Mouth: mucous membranes dry (dry) Chest Chest: normal inspection of the chest, normal palpation of entire chest wall and no crepitus Resp Effort & Inspection: normal respiratory effort, able to speak in complete sentences and no respiratory distress Auscultation: crackles on the left in the lower lung martin, diminished lung sounds on the right in the lower lung martin, no rales, no rhonchi and no wheezes Cardio Rate: tachycardic Rhythm: regular rhythm Heart Sounds: S1 normal and S2 normal GI Inspection: normal to inspection, no edema and distended Palpation: soft, no hepatosplenomegaly, not firm, no guarding, not rigid and nontender Auscultation: normal bowel sounds Back/Spine/Pelvis Back: no CVA tenderness Thoracic/Lumbar Spine: thoracic and lumbar spine normal to inspection Skin General skin exam: no rashes or lesions noted Trauma: no lacerations or abrasions Neuro General: patient alert, patient awake and patient oriented x3 Cognition: normal cognition Speech: speech normal Gait: normal gait Extrem General: normal to inspection, capillary refill normal, no calf tenderness and edema (darius boots in place) Psych Appearance: grossly normal and well kempt Mental Status: mental status grossly normal Speech and Movement: speech and movement normal Course Vital Signs Vital signs: Vital Signs Temperature 36.9 C 06/02/22 15:48 Pulse 129 H 06/02/22 15:48 Respiratory Rate 18 06/02/22 15:48 Blood Pressure 122/78 06/02/22 15:48 Pulse Oximetry 98 06/02/22 15:48 Temperature 36.9 C 06/02/22 15:48 Temperature Source Temporal Artery Scan 06/02/22 15:48 Pulse 129 H 06/02/22 15:48 Respiratory Rate 18 06/02/22 15:48 Blood Pressure 122/78 06/02/22 15:48 Blood Pressure Position Sitting 06/02/22 15:48 Pulse Oximetry 98 06/02/22 15:48 Oxygen Delivery Method Room Air 06/02/22 15:48 Oxygen Flow Rate 0 06/02/22 15:48 Pain Level 0 06/02/22 15:48
[2022-06-02 16:37] LABS: Abs Immature Grans 0.03 10^3/uL (0.0-0.06); Absolute Basophil Count 0.08 10^3/uL (0.0-0.2); Absolute Eosinophil Count 0.17 10^3/uL (0.0-0.7); Absolute Lymphocyte Count 0.87 10^3/uL (1.2-3.4); Absolute Monocyte Count 0.69 10^3/uL (0.1-0.8); Absolute Neutrophil Count 6.32 10^3/uL (1.2-6.7); Eosinophils % 2.1; HCT 36.4 % (40.0-50.0); HGB 11.1 g/dL (13.5-17.5); Immature Grans % 0.4; Lymphocytes % 10.7; MCH 28.9 pg (27.0-33.0); MCHC 30.5 % (32.0-36.0); MCV 95 fL (80-95); MPV 8.8 fL (8.0-11.0); Monocytes % 8.5; Neutrophils % 77.3; Platelet Count 360 10^3/uL (130-400); RBC 3.84 10^6/uL (4.36-5.78); RDW 15.9 % (11.8-14.1); RDW-SD 54.6 fL; WBC 8.16 10^3/uL (4.4-10.8)
[2022-06-02 16:39] LABS: Lactate 1.9 mmol/L (0.6-1.4)
[2022-06-02 17:00] LABS: ALT 94 U/L (16-63); AST 28 U/L (15-37); Albumin 3.2 g/dL (3.4-5.0); Alkaline Phosphatase 76 U/L (46-116); BUN 31 mg/dL (7-18); Bilirubin, Total 1.1 mg/dL (0.2-1.0); CREATININE 1.8 mg/dL (0.70-1.30); Calcium 9.2 mg/dL (8.5-10.1); Chloride 104 mmol/L (98-107); Estimated GFR 39.99 (mL/min/1.73m2); Glucose 113 mg/dL (74-106); Potassium 4.4 mmol/L (3.5-5.1); Sodium 142 mmol/L (136-145); Total Protein 7.6 g/dL (6.4-8.2); Troponin I < 50 ng/L (<or=60)
[2022-06-02 17:14] LABS: COVID-19 PCR Negative (Negative); Influenza A PCR Negative (Negative); Influenza B PCR Negative (Negative); RSV PCR Negative (Negative)
[2022-06-02 17:21] LABS: Source Nasopharynx
[2022-06-02 17:55] LABS: INR 1.5 (0.9-1.1); PTT Activated 26.5 sec (21.5-31.9); Prothrombin Time 14.9 sec (9.3-11.0)
--- NOTE | 2022-06-02 17:55 | SCONE_ITS ---
Date of service: 06/02/22 Time of Service: 17:55 Assessment and Plan Assessment and plan (1) Pleural effusion: Status: Acute Assessment and plan: I performed a limited ultrasound of the right chest today. The apex is normal- appearing, but with limited lung sliding. I can appreciate some of the pleural effusion, mostly laterally along the right chest wall. There are filamentous elements that do support the diagnosis of some loculations. Based on his body habitus, and the area of the effusion, I do not feel comfortable draining this by way of a ultrasound-guided percutaneous approach. However, I do think this is in his best interest given his comorbidities, and other factors such as his therapeutic anticoagulation. In that regard, I recommend follow-up with interventional radiology at [facility] to see if this is accessible for them. If that is the case, then I think a percutaneous drain would be his best option to help guide diagnostics and therapy. History of Present Illness History of Present Illness Chief Complaint: Exertional dyspnea Narrative: Mejia is a 71-year-old male who is referred into the emergency department from primary care after consultation with pulmonology regarding increasing dyspnea, and a CAT scan that demonstrates a loculated right-sided pleural effusion. As best I can tell, he first had trouble with a right-sided pleural effusion in September 2021. At that time, he underwent thoracentesis which drained 1600 mL of fluid. This occurred during a hospitalization for Pseudomonas bacteremia. Initially, empyema was within the differential diagnosis, but the Gram stain on the fluid was negative, and there was no growth from the culture. Pseudomonas bacteremia was subsequently attributed to chronic lower extremity wounds, and as best I can tell, he did not have any more problems with pleural effusions. In the interim, during work-up for his heart failure, he was found to have coronary artery disease. He underwent three-vessel CABG in March 2022. His recovery has been complicated by some atrial fibrillation for which he is treated with Eliquis. In mid April, recently, he experienced multiple episodes of syncope and exertional dyspnea. He was back in our emergency department on May 03. He underwent a CAT scan of his chest at that time that demonstrated a right-sided pleural effusion, as well as a small left-sided pleural effusion and a pericardial effusion. He was flown down to [facility]. A 10 [place] right-sided tube thoracostomy was placed, and drained approximately 500 mL of serosanguineous fluid. I cannot find any pathology or microbiology on that specimen. He tells me that he was treated with this drain for about 9 days. It appears that the tube was removed on May 12, and he was discharged later that day. He was supposed to follow-up about 2 weeks later, but that appointment was canceled because of weather. He was able to get an outpatient chest x-ray on May 28 that showed concerns for a loculated right-sided pleural effusion, and perhaps right lower lobe infiltrate. Because of ongoing dyspnea, some changes were made regarding his diuretics, but he continues to have in creasing shortness of breath. He underwent a CAT scan of the chest today that confirmed a right-sided pleural effusion. [facility] All Active Problems (Updated 05/30/22 @ 12:04 by Martha Valera NP) Pericardial effusion (Acute) Pleural effusion (Acute) Cardiomyopathy (Acute) CAD (coronary artery disease) (Chronic) Corns and callosities (Acute) Nail dystrophy (Acute) Hypercapnic respiratory failure (Acute) Heart failure, systolic, chronic (Acute) Recurrent infections (Chronic) H/o recurrent leg cellulitis and sepsis CHF (congestive heart failure) (Acute) 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 2 diabetes mellitus (Chronic ~10/2019) Atrial fibrillation (Chronic) Psoriasis (Chronic) Tinea pedis (Acute 10/29/20) [facility] [place] Disease Vitamin B12 deficiency (Chronic) Stasis dermatitis of both legs (Acute) CKD (chronic kidney disease) (Acute) Essential hypertension (Chronic) Type 2 diabetes mellitus (Chronic) Venous insufficiency (Chronic) COPD (chronic obstructive pulmonary disease) with emphysema (Chronic) Obesity (Chronic) Hyperlipidemia, unspecified (Chronic) Tobacco use disorder (Chronic) Medical History Anemia Hypothyroidism NSTEMI (non-ST elevated myocardial infarction) Sepsis syndrome Surgical History Colonoscopy - MAC (11/10/16) Orchiectomy, Radical Left, s/p trauma Repair, ACL Right-Age 17 S/P CABG x 3 (04/11/22) [facility] Family History Father , ID? at age 79. Essential hypertension Myocardial infarction Maternal Aunt Neoplasm Adnexa NOS Maternal Grandmother Neoplasm Adnexa NOS Mother , CVA & PNA at age 81. Essential hypertension Stroke Paternal Grandfather Myocardial infarction Social History Smoking/Tobacco Use Status: Former Tobacco Use Smoking risk assessment performed?: Yes Alcohol Intake: current Alcohol Intake frequency: holidays/special occasions only Drug use: Never Substance use type: does not use Adopted: No Caregiver/Support person: No Household members: spouse, family and children Number of Children: 2 number of grandchildren: 4 Communication Needs: None Education Level: college Details: Some College Do you need help understanding health information?: Rarely Pets and animals: No Sexually active: No Do you think of yourself as: straight/heterosexual Current gender identity: male What is your relationship status?: How often do you talk on the phone with friends or family?: once per week How often do you get together with friends or relatives?: once per week Do you belong to any clubs or organized social groups?: no Panel score (0-1 are the most socially isolated patients): 1 What type of physical activity do you participate in: resistance training Duration: < 15 minutes/day Frequency: 1-2 times per week Chantell/Gnosticist: Bahai Special chantell needs: No Seatbelt use: always Drive intox or ride w/intox courtesy bus driver: No Do you feel safe at home: Yes Do you feel safe in your relationship?: Yes Exam Chest Other: He has a well-healed sternotomy scar. Sternum is stable. Resp Effort & Inspection: able to speak in complete sentences, cough and no tracheal deviation Auscultation: rhonchi Results Last Vital Signs Temp 98.4 F 06/02/22 15:48 Pulse 112 H 06/02/22 17:01 Resp 19 06/02/22 17:01 BP 118/87 06/02/22 17:01 Pulse Ox 96 06/02/22 17:01 Labs 06/02/22 16:28 06/02/22 16:28 Labs: Laboratory Results - last 24 hr 06/02/22 06/02/22 06/02/22 16:25 16:28 16:28 WBC RBC Hgb Hct MCV MCH MCHC RDW Plt Count MPV Immature Gran % Neutrophils % Lymphocytes % Monocytes % Eosinophils % Basophils % Nucleated RBC % Absolute Neutrophils Absolute Lymphocytes Absolute Monocytes Absolute Eosinophils Absolute Basophils VBG Lactate 1.9 H Sodium 142 Potassium 4.4 Chloride 104 Carbon Dioxide 28.0 Anion Gap 10.0 BUN 31 H Creatinine 1.8 H Est GFR (CKD-EPI 2020) 39.99 Glucose 113 H Calcium 9.2 Magnesium 2.0 Total Bilirubin 1.1 H AST 28 ALT 94 H Alkaline Phosphatase 76 Troponin I < 50 Total Protein 7.6 Albumin 3.2 L COVID-19 Source Nasopharynx SARS-CoV-2 (PCR) Negative Influenza Type A (PCR) Negative Influenza Type B (PCR) Negative RSV (PCR) Negative 06/02/22 16:28 WBC 8.16 RBC 3.84 L Hgb 11.1 L Hct 36.4 L MCV 95 MCH 28.9 MCHC 30.5 L RDW 15.9 H Plt Count 360 MPV 8.8 Immature Gran % 0.4 Neutrophils % 77.3 Lymphocytes % 10.7 Monocytes % 8.5 Eosinophils % 2.1 Basophils % 1.0 Nucleated RBC % 0.0 Absolute Neutrophils 6.32 Absolute Lymphocytes 0.87 L Absolute Monocytes 0.69 Absolute Eosinophils 0.17 Absolute Basophils 0.08 VBG Lactate Sodium Potassium Chloride Carbon Dioxide Anion Gap BUN Creatinine Est GFR (CKD-EPI 2020) Glucose Calcium Magnesium Total Bilirubin AST ALT Alkaline Phosphatase Troponin I Total Protein Albumin COVID-19 Source SARS-CoV-2 (PCR) Influenza Type A (PCR) Influenza Type B (PCR) RSV (PCR) Imaging CT scan - chest: report reviewed and image reviewed
[2022-06-02] MEDS: CEFEPIME 1 GM in Normal Saline 50 ML IVPB (17:56)
[2022-06-02] MEDS: metroNIDAZOLE 500 MG/100 ML BAG 100 MG IVPB (18:55)
--- NOTE | 2022-06-02 19:43 | HPE_ITS ---
Date of service: 06/02/22 Time of Service: 19:43 Assessment and Plan Assessment and plan (1) Pleural effusion: Status: Acute Assessment and plan: Recurrent pleural effusion, unknown etiology. Will continue antibiotics per recommendations of Pulmonary. Has received doses of Vanco and Flagyl, will add gram negative coverage with Rocephin. I have asked ER to recontact IR regarding anticoagulation (patient on Eliquis).Otherwise usual meds as is except hold diabetic meds as patient will be NPO for procedure; will cover with SS. History of Present Illness History of Present Illness Chief Complaint: SOB Narrative: 71 male with multiple medical problems, including CHF, COPD, DM, CAD, AF -- has had recurrent right sided pleural effusion, s/p multiple thoracenteces without specific diagnosis, most recently 05/08. Has been treated with escalating doses of diuretics w/o effect. Had f/u CT which demonstrated loculation. Sent to ER by Pulmonolgy for antibiotics and drainage. Surgery unable to locate safe route for procedure and IR [facility] contacted. is accepted for down and back procedure tomorrow, is admitted here for IV antibiotics pending same. Patient states he feels more or less his usual GALVEZ at present. Denies fever, chills cough or CP Review of Systems Narrative: per HPI PFSH All Active Problems Pericardial effusion (Acute) Pleural effusion (Acute) Cardiomyopathy (Acute) CAD (coronary artery disease) (Chronic) Corns and callosities (Acute) Nail dystrophy (Acute) Hypercapnic respiratory failure (Acute) Heart failure, systolic, chronic (Acute) Recurrent infections (Chronic) H/o recurrent leg cellulitis and sepsis CHF (congestive heart failure) (Acute) 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 2 diabetes mellitus (Chronic ~10/2019) Atrial fibrillation (Chronic) Psoriasis (Chronic) Tinea pedis (Acute 10/29/20) [facility] Inf Disease Vitamin B12 deficiency (Chronic) Stasis dermatitis of both legs (Acute) CKD (chronic kidney disease) (Acute) Essential hypertension (Chronic) Type 2 diabetes mellitus (Chronic) Venous insufficiency (Chronic) COPD (chronic obstructive pulmonary disease) with emphysema (Chronic) Obesity (Chronic) Hyperlipidemia, unspecified (Chronic) Tobacco use disorder (Chronic) Medical History Anemia Hypothyroidism NSTEMI (non-ST elevated myocardial infarction) Sepsis syndrome Surgical History Colonoscopy - MAC (11/10/16) Orchiectomy, Radical Left, s/p trauma Repair, ACL Right-Age 17 S/P CABG x 3 (04/11/22) [facility] Family History Father , [place]? at age 79. Essential hypertension Myocardial infarction Maternal Aunt Neoplasm Adnexa NOS Maternal Grandmother Neoplasm Adnexa NOS Mother , CVA & PNA at age 81. Essential hypertension Stroke Paternal Grandfather Myocardial infarction Social History Smoking/Tobacco Use Status: Former Tobacco Use Smoking risk assessment performed?: Yes Alcohol Intake: current Alcohol Intake frequency: holidays/special occasions only Drug use: Never Substance use type: does not use Adopted: No Caregiver/Support person: No Household members: spouse, family and children Number of Children: 2 number of grandchildren: 4 Communication Needs: None Education Level: college Details: Some College Do you need help understanding health information?: Rarely Pets and animals: No Sexually active: No Do you think of yourself as: straight/heterosexual Current gender identity: male What is your relationship status?: How often do you talk on the phone with friends or family?: once per week How often do you get together with friends or relatives?: once per week Do you belong to any clubs or organized social groups?: no Panel score (0-1 are the most socially isolated patients): 1 What type of physical activity do you participate in: resistance training Duration: < 15 minutes/day Frequency: 1-2 times per week Chantell/Pentecostalism: Holiness Special chantell needs: No Seatbelt use: always Drive intox or ride w/intox bus driver school: No Do you feel safe at home: Yes Do you feel safe in your relationship?: Yes Meds Allergies and Home Medications Allergies Allergy/AdvReac Type Severity Reaction Status Date / Time shellfish derived Allergy Intermediate Hives Verified 06/02/22 15:58 house dust Allergy Mild Verified 06/02/22 15:58 hay fever Allergy Mild runny nose Uncoded 06/02/22 15:58 and cough Home Medications Medication Instructions Recorded Confirmed Type blood-glucose meter (OneTouch #1 ea 11/02/19 06/02/22 Rx UltraMini kit) comp.stocking,knee,long,medium #2 units 06/01/20 06/02/22 Rx aspirin 81 mg tablet,delayed 81 mg PO DAILY 08/07/20 06/02/22 History release ammonium lactate 12 % topical cream 1 applic topical QD-BID PRN dry 08/17/20 06/02/22 Rx skin #140 grams cyanocobalamin (vitamin B-12) 1,000 mcg PO DAILY #90 tab-caps 08/17/20 06/02/22 Rx 1,000 mcg tablet betamethasone valerate 0.1 % 1 applic topical QD-BID PRN High 11/16/20 06/02/22 Rx topical ointment Potency (Group 3) topical steroid #45 grams nystatin 100,000 unit/gram topical 1 applic topical BID #30 grams 09/13/21 06/02/22 Rx powder glipizide 5 mg tablet, extended 5 mg PO DAILY #90 tab-caps 01/08/22 06/02/22 Rx release 24 hr budesonide-formoterol HFA 160 2 puff inhalation BID PRN 03/18/22 06/02/22 History mcg-4.5 mcg/actuation aerosol inhaler (Symbicort) atorvastatin 80 mg tablet 80 mg PO 1XD 05/03/22 06/02/22 History acetaminophen 500 mg capsule 1,000 mg PO Q6H PRN 05/13/22 06/02/22 History metformin 500 mg tablet 500 mg PO BID 05/13/22 06/02/22 History metoprolol succinate 100 mg 100 mg PO BID 05/13/22 06/02/22 History tablet,extended release 24 hr apixaban 5 mg tablet (Eliquis) 5 mg PO BID #180 tabs 05/15/22 06/02/22 Rx blood sugar diagnostic (Blood #100 ea 05/15/22 06/02/22 Rx Glucose Test strips) lancets #100 ea 05/15/22 06/02/22 Rx furosemide 20 mg tablet See Rx Instructions PO BID #270 05/30/22 06/02/22 Rx tabs albuterol sulfate 90 mcg/actuation 2 puff inhalation QID PRN SOB #18 03/20/23 03/20/23 Rx aerosol inhaler grams Exam Narrative Exam Narrative: 118/87, 112, 36.9, 19, 96%. HEENT atraumatic; neck supple; lungs decreased BS and dullness on right x2/3; heart distant, irr/irr; abdomen soft and NT; extremities 2-3+ pedal edema, wrapped; neuro Ox3, lucid, moves all 4s Results Labs 06/02/22 16:28 06/02/22 16:28 Labs: Laboratory Results - last 24 hr 06/02/22 06/02/22 06/02/22 16:25 16:28 16:28 WBC RBC Hgb Hct MCV MCH MCHC RDW Plt Count MPV Immature Gran % Neutrophils % Lymphocytes % Monocytes % Eosinophils % Basophils % Nucleated RBC % Absolute Neutrophils Absolute Lymphocytes Absolute Monocytes Absolute Eosinophils Absolute Basophils PT INR APTT VBG Lactate 1.9 H Sodium 142 Potassium 4.4 Chloride 104 Carbon Dioxide 28.0 Anion Gap 10.0 BUN 31 H Creatinine 1.8 H Est GFR (CKD-EPI 2020) 39.99 Glucose 113 H Calcium 9.2 Magnesium 2.0 Total Bilirubin 1.1 H AST 28 ALT 94 H Alkaline Phosphatase 76 Troponin I < 50 Total Protein 7.6 Albumin 3.2 L COVID-19 Source Nasopharynx SARS-CoV-2 (PCR) Negative Influenza Type A (PCR) Negative Influenza Type B (PCR) Negative RSV (PCR) Negative 06/02/22 06/02/22 16:28 16:40 WBC 8.16 RBC 3.84 L Hgb 11.1 L Hct 36.4 L MCV 95 MCH 28.9 MCHC 30.5 L RDW 15.9 H Plt Count 360 MPV 8.8 Immature Gran % 0.4 Neutrophils % 77.3 Lymphocytes % 10.7 Monocytes % 8.5 Eosinophils % 2.1 Basophils % 1.0 Nucleated RBC % 0.0 Absolute Neutrophils 6.32 Absolute Lymphocytes 0.87 L Absolute Monocytes 0.69 Absolute Eosinophils 0.17 Absolute Basophils 0.08 PT 14.9 H INR 1.5 H APTT 26.5 VBG Lactate Sodium Potassium Chloride Carbon Dioxide Anion Gap BUN Creatinine Est GFR (CKD-EPI 2020) Glucose Calcium Magnesium Total Bilirubin AST ALT Alkaline Phosphatase Troponin I Total Protein Albumin COVID-19 Source SARS-CoV-2 (PCR) Influenza Type A (PCR) Influenza Type B (PCR) RSV (PCR) Last Vital Signs Temp 36.9 C 06/02/22 15:48 Pulse 112 H 06/02/22 17:01 Resp 19 06/02/22 17:01 BP 118/87 06/02/22 17:01 Pulse Ox 96 06/02/22 17:01 Time Spent Time spent with Patient: <40 minutes Time was spent: preparing to see the patient(eg.review tests), obtaining and/or reviewing separately otained hiistory, ordering medications,tests, procedures and indepentently interpreting results
[2022-06-02] MEDS: VANCOMYCIN 1,500 MG in Normal Saline 250 ML 166.6666 MG IVPB (20:14)
[2022-06-02 20:33] LABS: Troponin I < 50 ng/L (<or=60)
[2022-06-02] MEDS: Lactated Ringers 1,000 ML 50 ML IV (22:34)
[2022-06-02] MEDS: cefTRIAXone 1,000 MG in Normal Saline 50 ML 100 MG IVPB (22:35)
[2022-06-02] MEDS: Atorvastatin 40 MG TAB 80 MG PO (22:35)
[2022-06-02 22:38] LABS: Bilirubin Negative (Negative); Blood Negative (Negative); Glucose Negative (Negative); Ketones Negative (Negative); Leukocyte Esterase Negative (Negative); Nitrite Negative (Negative); Specific Gravity 1.025 (1.005-1.025); Urobilinogen 0.2 mg/dL (Up to 0.2); pH 5.5 (5-8)
[2022-06-02 22:39] LABS: Clarity Sl Cloudy (Clear)
[2022-06-03] VITALS (8 sets, daily range): BP systolic 102–113; BP diastolic 63–74; PULSE 117–122; RESP 20; TEMP 36–36.6; O2SAT 96–98
[2022-06-03] MEDS: metroNIDAZOLE 500 MG/100 ML BAG 100 MG IVPB ×4 (01:45→21:02)
[2022-06-03] MEDS: Tiotropium/Olodaterol 10 PUFF INHALER 2 PUFF IH (08:43)
[2022-06-03] MEDS: Cyanocobalamin 100 MCG TABLET 1000 MCG PO (09:22)
[2022-06-03] MEDS: Normal Saline Flush 10 ML SYR IVP ×3 (09:22→20:19)
[2022-06-03] MEDS: Aspirin E.C. 81 MG TABEC PO (09:22)
[2022-06-03] MEDS: Metoprolol CR 100 MG TABCR PO ×2 (09:22→20:18)
[2022-06-03] MEDS: Furosemide 20 MG TAB 40 MG PO (09:22)
[2022-06-03] MEDS: VANCOMYCIN/WATER (PEG) 1.25 GM/250 ML BAG IVPB (14:26)
--- NOTE | 2022-06-03 15:46 | W.PM.PROGNOT ---
Date of Service Date of service: 06/03/22 Time of Service: 15:47 Assessment and Plan Assessment and plan (1) Loculated pleural effusion: Status: Acute Assessment and plan: patient to go to [facility] IR for pleural catheter placement and sampling of pleural fluid. If an exudate is found, he may need lytic therapy to break up loculations and properly drain the effusion. Continue antibiotics for now (was put on Ceftriaxone, Flagyl and Vancomycin per nocuturnist per his discussion w/ ED provider. I think that the Flagyl/Rocephin combination could be changed to a Zosyn. (2) Atrial fibrillation: Status: Chronic Assessment and plan: his home dose of apixaban was held on admission in anticipation of IR procedure. I will wait 12h after procedure before resumption (3) Cardiomyopathy: Status: Acute Assessment and plan: no recent echocardiogram here at [facility]; will request last echo from [facility]. MPI prior to his CABG demonstrated diffuse LV hypokinesis w/ LVEF 31% and apical ischemia. patient is currently on lasix and metoprolol but not on jardiance or entresto or MAURA-I or ARB. Not clear why this is the case. I will have to discuss this with him as he is not at goal for his CHF. Also he ought to be on spironolactone (4) CKD (chronic kidney disease): Status: Acute Assessment and plan: currently at BUN 31 and creatinine of 1.8 which appears to be his new baseline over the past year Qualifiers: Chronic kidney disease stage: stage 3 (moderate) Qualified Code(s): N18.3 - Chronic kidney disease, stage 3 (moderate) (5) COPD (chronic obstructive pulmonary disease) with emphysema: Status: Chronic Assessment and plan: stable. being treated w/ Spiriva and prn albuterol Qualifiers: Emphysema type: unspecified Qualified Code(s): J43.9 - Emphysema, unspecified (6) Type 2 diabetes mellitus: Status: Chronic Assessment and plan: holding glipizide and metformin; treating w/ SSI insulin Qualifiers: Diabetes mellitus rn long term care insulin use: without rn long term care use Diabetes mellitus complication status: with hyperglycemia Qualified Code(s): E11.65 - Type 2 diabetes mellitus with hyperglycemia (7) CAD (coronary artery disease): Status: Chronic Assessment and plan: continue ASA, metoprolol, atorvastatin Subjective Subjective Interval history since last seen: Mr Artis was admitted last night after he was seen by the PA in the pulmonary clinic and sent to the ED d/t increasing dyspnea. he has complicated hx of recurrent right sided pleural effusions which have been drained multiple times both by Dr. Burger here at [facility] in the past as well as while at [facility] postoperatively in April after a CABG done at [facility] end of March 2022. He also had pericardial effusion postoperatively. His surgeon is Dr. Canales. He states that his first thoracentesis was in September 2021 when about 2 liters was taken off. He does not know what the cause was. He has DM, CAD, CHF. He had an [place] about 3 yrs ago but only recently was worked up for ischemia when he underwent CABG x 3 vessels. He says that lately he has been getting dyspneic w/ performing ADL's such as walking from the bed to the bathroom and that was why he saw his final inspector paper. CT scan from yesterday demonstrated reduction in his pericardial effusion from 2 cm to 4 mm but w/ recurrent moderate right sided loculated pleural effusion but none on the left. Per Dr. Burger, he has multiple loculations in the right side of his chest and per my discussion w/her yesterday, she felt that Dr. Canales should be consulted since patient had recent CABG. I did speak w/ [facility] transfer center who spoke w/ Dr. Canales who indicated that the pleural effusion has nothing to do w/ the CABG and recommended IR placment of pleural catheter. I then spoke w/ a person in IR who listened to his clinical situation and agreed that the patient ought to have IR guided pleural catheter drainage and agreed to a down and back procedure to take place tomorrow. I had the med/surg alumnae secretary fax and order for the procedure along w/ the requested labs and the patient's H&P. He will go tomorrow sometime for the procedure. IR will call the floor w/details of time. Exam Narrative Exam Narrative: Mr Artis was seen sitting up in his chair, resting watching TV. No respiratory distress. Not requiring supplemental oxygen Barrel chested Lungs: diminished breath sounds over right base and lower 1/3; left side is clear Heart: irregularly irregular, slightly tachycardic Abdomen: obese, soft, nontender Legs/feet: no pitting edema Objective Last Vital Signs Temp 36.2 C L 06/03/22 14:42 Pulse 120 H 06/03/22 14:42 Resp 20 06/03/22 14:42 BP 113/66 06/03/22 14:42 Pulse Ox 96 06/03/22 14:42 Laboratory Results - last 24 hr 06/02/22 06/02/22 06/02/22 16:25 16:28 16:28 WBC RBC Hgb Hct MCV MCH MCHC RDW Plt Count MPV Immature Gran % Neutrophils % Lymphocytes % Monocytes % Eosinophils % Basophils % Nucleated RBC % Absolute Neutrophils Absolute Lymphocytes Absolute Monocytes Absolute Eosinophils Absolute Basophils PT INR APTT VBG Lactate 1.9 H Sodium 142 Potassium 4.4 Chloride 104 Carbon Dioxide 28.0 Anion Gap 10.0 BUN 31 H Creatinine 1.8 H Est GFR (CKD-EPI 2020) 39.99 Glucose 113 H Calcium 9.2 Magnesium 2.0 Total Bilirubin 1.1 H AST 28 ALT 94 H Alkaline Phosphatase 76 Troponin I < 50 Total Protein 7.6 Albumin 3.2 L Urine Color Urine Clarity Urine pH Ur Specific [place] Urine Protein Urine Ketones Urine Blood Urine Nitrite Urine Bilirubin Urine Urobilinogen Ur Leukocyte Esterase Urine Glucose COVID-19 Source Nasopharynx SARS-CoV-2 (PCR) Negative Influenza Type A (PCR) Negative Influenza Type B (PCR) Negative RSV (PCR) Negative 06/02/22 06/02/22 06/02/22 16:28 16:40 19:55 WBC 8.16 RBC 3.84 L Hgb 11.1 L Hct 36.4 L MCV 95 MCH 28.9 MCHC 30.5 L RDW 15.9 H Plt Count 360 MPV 8.8 Immature Gran % 0.4 Neutrophils % 77.3 Lymphocytes % 10.7 Monocytes % 8.5 Eosinophils % 2.1 Basophils % 1.0 Nucleated RBC % 0.0 Absolute Neutrophils 6.32 Absolute Lymphocytes 0.87 L Absolute Monocytes 0.69 Absolute Eosinophils 0.17 Absolute Basophils 0.08 PT 14.9 H INR 1.5 H APTT 26.5 VBG Lactate Sodium Potassium Chloride Carbon Dioxide Anion Gap BUN Creatinine Est GFR (CKD-EPI 2020) Glucose Calcium Magnesium Total Bilirubin AST ALT Alkaline Phosphatase Troponin I < 50 Total Protein Albumin Urine Color Urine Clarity Urine pH Ur Specific [place] Urine Protein Urine Ketones Urine Blood Urine Nitrite Urine Bilirubin Urine Urobilinogen Ur Leukocyte Esterase Urine Glucose COVID-19 Source SARS-CoV-2 (PCR) Influenza Type A (PCR) Influenza Type B (PCR) RSV (PCR) 06/02/22 22:30 WBC RBC Hgb Hct MCV MCH MCHC RDW Plt Count MPV Immature Gran % Neutrophils % Lymphocytes % Monocytes % Eosinophils % Basophils % Nucleated RBC % Absolute Neutrophils Absolute Lymphocytes Absolute Monocytes Absolute Eosinophils Absolute Basophils PT INR APTT VBG Lactate Sodium Potassium Chloride Carbon Dioxide Anion Gap BUN Creatinine Est GFR (CKD-EPI 2020) Glucose Calcium Magnesium Total Bilirubin AST ALT Alkaline Phosphatase Troponin I Total Protein Albumin Urine Color Yellow Urine Clarity Sl Cloudy Urine pH 5.5 Ur Specific [place] 1.025 Urine Protein Negative Urine Ketones Negative Urine Blood Negative Urine Nitrite Negative Urine Bilirubin Negative Urine Urobilinogen 0.2 Ur Leukocyte Esterase Negative Urine Glucose Negative COVID-19 Source SARS-CoV-2 (PCR) Influenza Type A (PCR) Influenza Type B (PCR) RSV (PCR) Time Spent with Patient Time Spent with Patient: 25-34 minutes Time was spent: preparing to see the patient(eg.review tests), obtaining and/or reviewing separately otained hiistory, ordering medications,tests, procedures, referring, communicating with other health janitor caretaker, indepentently interpreting results, counseling the patient and care coordination
[2022-06-03] MEDS: Furosemide 20 MG TAB PO (16:13)
--- NOTE | 2022-06-03 16:35 | PDOC.CMIN ---
- If Service Date Differs Date of service: 06/03/22 Time of Service: 16:35 Care Management Initial Assess REASON FOR HOSPITALIZATION:: Pleural Effusion PAST MEDICAL HISTORY/PAST SURGICAL HISTORY:: All Active Problems. Pericardial effusion (Acute). Pleural effusion (Acute). Cardiomyopathy (Acute). CAD (coronary artery disease) (Chronic). Corns and callosities (Acute). Nail dystrophy (Acute). Hypercapnic respiratory failure (Acute). Heart failure, systolic, chronic (Acute). Recurrent infections (Chronic). H/o recurrent leg cellulitis and sepsis. CHF (congestive heart failure) (Acute). 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 Atrial fibrillation (Chronic). Psoriasis (Chronic). Tinea pedis (Acute 10/29/20). [facility] [place] Inf Disease. Vitamin B12 deficiency (Chronic). Stasis dermatitis of both legs (Acute). CKD (chronic kidney disease) (Acute). Essential hypertension (Chronic). Type 2 diabetes mellitus (Chronic). Venous insufficiency (Chronic). COPD (chronic obstructive pulmonary disease) with emphysema (Chronic). Obesity (Chronic). Hyperlipidemia, unspecified (Chronic). Tobacco use disorder (Chronic). Medical History. Anemia. Hypothyroidism. NSTEMI (non-ST elevated myocardial infarction). Sepsis syndrome. Surgical History. Colonoscopy - MAC (11/10/16). Orchiectomy, Radical. Left, s/p trauma. Repair, ACL. Right-Age 17. 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 [facility] [place] PREVIOUS FUNCTIONAL STATUS/SOCIAL/FAMILY SUPPORTS:: Mejia lives in [place] with his , Marifer, their 21 year old son, Сергей, and his [id number]. Mejia and Marifer also have a daughter Radha who lives locally and four grandchildren. 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 Mejia enjoys playing golf, watching his grandkids play baseball, and doing yard work. He is independent at baseline. CURRENT FUNCTIONAL STATUS:: Mejia was sitting up in his chair when CM met with him. He was pleasant and engaged in conversation. He stated that he is expecting to go to [facility] [place], possibly for a down and back procedure. Per report, is communicating with [facility] [place] about down and back vs transfer. Mejia expressed concern regarding medical bills from [facility] and [facility] [place], as he has been hospitalized many times recently. CM sent a referral to [facility] for insurance support. CM will continue to follow. ADVANCE DIRECTIVES:: none on file. Has patient been provided with info about the portal/API?: Yes Did the patient sign up for the portal?: Yes (active) CODE STATUS:: Full Code INSURANCE COVERAGE / FINANCIAL ISSUES:: MCR CURRENT HOME/COMMUNITY SERVICES/EQUIPMENT:: HH RN, PT PRIMARY CARE PHYSICIAN:: Martha Valera POTENTIAL DISCHARGE NEEDS:: Evaluations for further needs, resumption of services, follow up appointments. PATIENT/FAMILY EDUCATION NEEDS:: Review of discharge instructions, limitations, follow up plan, activity, Ask Me Three ANTICIPATED BARRIERS TO DISCHARGE:: None. TRANSPORTATION:: Depends on disposition. PLAN:: is communicating with [facility] [place] regarding possible transfer vs down and back procedure. If transferred, he will transport via EMS. He will follow up with his PCP, pulmonology and his discharge plan of care. CM will continue to follow.
[2022-06-03] MEDS: Insulin Aspart 300 UNITS/3 ML PEN SC (17:03)
[2022-06-03] MEDS: cefTRIAXone 1 GM/50 ML BAG IVPB (20:18)
[2022-06-03] MEDS: Atorvastatin 40 MG TAB 80 MG PO (22:41)
[2022-06-04] MEDS: metroNIDAZOLE 500 MG/100 ML BAG 100 MG IVPB ×3 (02:11→20:52)
[2022-06-04 03:47] VITALS: BP 100/68; PULSE 105; RESP 17; TEMP 36.3; O2SAT 95
[2022-06-04 07:14] VITALS: BP 100/71; PULSE 113; RESP 20; TEMP 36.3; O2SAT 97
[2022-06-04] MEDS: Metoprolol CR 100 MG TABCR PO ×2 (08:33→20:36)
[2022-06-04] MEDS: Cyanocobalamin 100 MCG TABLET 1000 MCG PO (08:34)
[2022-06-04] MEDS: Normal Saline Flush 10 ML SYR IVP ×2 (08:34→20:37)
[2022-06-04] MEDS: Tiotropium/Olodaterol 10 PUFF INHALER 2 PUFF IH (09:34)
[2022-06-04] MEDS: VANCOMYCIN/WATER (PEG) 1.25 GM/250 ML BAG IVPB (10:16)
[2022-06-04] MEDS: Albuterol HFA 8 GM 60 PUFF INH IH ×3 (10:44→23:18)
[2022-06-04 10:47] VITALS: BP 104/70; PULSE 114; RESP 20; TEMP 36; O2SAT 97
--- NOTE | 2022-06-04 10:56 | W.PM.PROGNOT ---
Date of Service Date of service: 06/04/22 Time of Service: 10:56 Assessment and Plan Assessment and plan (1) Loculated pleural effusion: Status: Acute Assessment and plan: patient to go to [facility] IR for pleural catheter placement and sampling of pleural fluid. If an exudate is found, he may need lytic therapy to break up loculations and properly drain the effusion. Continue antibiotics for now (was put on Ceftriaxone, Flagyl and Vancomycin per nocuturnist per his discussion w/ ED provider. I think that the Flagyl/Rocephin combination could be changed to a Zosyn however, as he is on vancomycin I will avoid Zosyn for now. His MRSA screen was negative so we can probably drop the vancomycin but I will await his pleural fluid gram stain results this afternoon. Professional time spent interviewing and examining patient, discussion of goals of care with hospital team (care management, nursing and consulting professionals) was 30 minutes. (2) Atrial fibrillation: Status: Chronic Assessment and plan: his home dose of apixaban was held on admission in anticipation of IR procedure. Patient has been off anticoagulation since admission. I will resume anticoagulation tonight after his IR procedure. His afib rate has been less than optimal control. I added low dose diltiazem 30 mg tid in addition to his Toprol XL 100 mg bid (3) Cardiomyopathy: Status: Acute Assessment and plan: no recent echocardiogram here at [facility]; will request last echo from [facility]. MPI prior to his CABG demonstrated diffuse LV hypokinesis w/ LVEF 31% and apical ischemia. patient is currently on lasix and metoprolol but not on jardiance or entresto or MAURA-I or ARB. Not clear why this is the case. I will have to discuss this with him as he is not at goal for his CHF. Also he ought to be on spironolactone (4) CKD (chronic kidney disease): Status: Acute Assessment and plan: currently at BUN 31 and creatinine of 1.8 which appears to be his new baseline over the past year Qualifiers: Chronic kidney disease stage: stage 3 (moderate) Qualified Code(s): N18.3 - Chronic kidney disease, stage 3 (moderate) (5) COPD (chronic obstructive pulmonary disease) with emphysema: Status: Chronic Assessment and plan: stable. His Stiolto was resumed per Dr. Duchene, continue prn albuterol Qualifiers: Emphysema type: unspecified Qualified Code(s): J43.9 - Emphysema, unspecified (6) Type 2 diabetes mellitus: Status: Chronic Assessment and plan: holding glipizide and metformin; treating w/ SSI insulin Qualifiers: Diabetes mellitus custodial insulin use: without termite control service representative use Diabetes mellitus complication status: with hyperglycemia Qualified Code(s): E11.65 - Type 2 diabetes mellitus with hyperglycemia (7) CAD (coronary artery disease): Status: Chronic Assessment and plan: continue ASA, metoprolol, atorvastatin Subjective Subjective Interval history since last seen: Patient states the he had an episode this morning in which he got very dyspneic and lightheaded, thought he was going to pass out but improved after his albuterol inhaler. He feels fine now. No CP. I explained to him that we finally were able to make arrangements w/ [facility] IR dept for a down and back proceduer w/ placement of a pig tail catheter into his loculated right sided pleural fluid. Exam Narrative Exam Narrative: Morbidly obese gentleman who appears to be in no acute distress, talking in complete sentences w/out dyspnea or coughing LUngs: markedly diminished over the right lower ches w/ some rales ; he has a few scattered end expiratory wheezes elsewhere Heart: irregularly irregular, review of telemetry demonstrates his rhythm to be afib w/ rates of 100 to 118 Abdomen: obese, soft, nonteder Legs/feet: bilateral lower leg edema; feet and ankles and lower legs are wrapped in [employer] dressings Objective Last Vital Signs Temp 36 C L 06/04/22 10:47 Pulse 114 H 06/04/22 10:47 Resp 20 06/04/22 10:47 BP 104/70 06/04/22 10:47 Pulse Ox 97 06/04/22 10:47 Time Spent with Patient Time Spent with Patient: 25-34 minutes Time was spent: preparing to see the patient(eg.review tests), ordering medications,tests, procedures, referring, communicating with other health inpatient care manager rn (Ms. Osuna, pulmonary), indepentently interpreting results, counseling the patient and care coordination
[2022-06-04] MEDS: dilTIAZem 30 MG TAB PO ×2 (11:51→20:36)
--- NOTE | 2022-06-04 12:56 | CMPROGNOTE_ITS ---
- If Service Date Differs Date of service: 06/04/22 Time of Service: 12:56 Care Management Progress Note S/O: Mejia will go to [facility], down and back today, for an IR procedure. He will transport via EMS, coordinated by RN automobile assembly supervisor. CM will continue to follow. A: Demetrio is a 71 year old male admitted to [facility] on 06/02/22 for a pleural effusion. P: Mejia will go down and back to [facility] today for a procedure with IR, and will transport via EMS. He will likely return home once medically cleared, with a resumption of RN, PT. CM sent a referral to [employer] for insurance support. He will follow up with his PCP, pulmonology, and his discharge plan of care. CM will continue to follow.
--- NOTE | 2022-06-04 12:56 | PDOC.CMPRO ---
- If Service Date Differs Date of service: 06/04/22 Time of Service: 12:56 Care Management Progress Note S/O: Mejia will [place] [facility], for an IR procedure. He will transport via EMS, coordinated by RN cost control supervisor. CM will continue to follow. A: Demetrio is a 71 year old male admitted to [facility] on 06/02/22 for a pleural effusion. P: Mejia will go down and [place] [facility] [place] for a procedure with IR, and will transport via EMS. He will likely return home once medically cleared, with a resumption of RN, PT. CM sent a referral to [employer] for insurance support. He will follow up with his PCP, pulmonology, and his discharge plan of care. CM will continue to follow.
[2022-06-04 20:06] VITALS: BP 131/83; PULSE 96; RESP 20; TEMP 36.9; O2SAT 96
[2022-06-04] MEDS: Atorvastatin 40 MG TAB 80 MG PO (20:36)
[2022-06-04] MEDS: cefTRIAXone 1 GM/50 ML BAG IVPB (20:51)
[2022-06-04] MEDS: Insulin Aspart 300 UNITS/3 ML PEN SC (23:53)
[2022-06-05] VITALS (8 sets, daily range): BP systolic 100–119; BP diastolic 64–87; PULSE 62–114; RESP 16–22; TEMP 36.1–37.1; O2SAT 94–99
--- NOTE | 2022-06-05 | DI.CT_ITS ---
Exam(s) CT CHEST WO EXAM: CT CHEST WO CLINICAL HISTORY: f/u effusion s/p pigtail placement. TECHNIQUE: Imaging protocol: Axial computed tomography images were obtained and coronal and sagittal reformatted images were created and reviewed. COMPARISON: CT CT CHEST WO from 06/02/2022 FINDINGS: Tracheobronchial tree: Patent where visualized. Moderate centrilobular emphysematous changes are pres ent. Pulmonary parenchyma: There has been re-expansion of the lung with dependent predominantly ground-gla ss infiltrates in the dependent portions of the right middle and right upper lobes and the dependent right lower lobe. The left lung is clear. Mediastinum and Mishel: No dominant adenopathy or fluid collection. The esophagus is unremarkable. Thyroid gland: Unremarkable. Pleura: There has been interval placement of a right pigtail catheter. There is been next significan t decrease in size of the right pleural effusion with a small right pleural effusion present. There is a persistent small left pleural effusion and/or pleural thickening. No pneumothorax. Heart: The heart is not dilated. Coronary artery calcification and/or stents are placed. There is a small pericardial effusion and/or pericardial thickening. Aorta: Thoracic aorta non-dilated. Atherosclerosis. Upper abdomen: Abdominal ascites is again noted. Cholelithiasis. Lymph nodes: Within normal limits. Tubes, Catheters, and Lines: There is a right posterior chest tube in place. Soft tissues: Unremarkable. Bones:Sternal wires are in place. Age-appropriate degenerative changes are seen in the spine. IMPRESSION: 1. Interval placement of a right chest tube with significant decrease in size of the right pleural ef fusion. There is a small residual right pleural effusion present. 2. Re-expansion of the right lung with small dependent ground-glass infiltrates seen in the right mid dle, right lower and right upper lobes. 3. Otherwise stable findings in the lung as described above. RADIATION DOSE DELIVERED: 864.65mGy.cm Total DLP 864.65mGy.cm Total DLP DATA REPOSITORY: All CT scans at this facility are submitted to the National Radiology Data Registry (NRDR) Dose Index Registry (DIR) with the [employer] ([employer]). RADIATION OPTIMIZATION: All CT scans at this facility use at least one of these dose optimization te chniques: automated exposure control; mA and/or kV adjustment per patient size (includes targeted exa ms where dose is matched to clinical indication); or iterative reconstruction.
[2022-06-05] MEDS: Normal Saline Flush 10 ML SYR IVP (01:20)
[2022-06-05] MEDS: metroNIDAZOLE 500 MG/100 ML BAG 100 MG IVPB ×4 (01:21→21:33)
[2022-06-05] MEDS: VANCOMYCIN/WATER (PEG) 1.25 GM/250 ML BAG IVPB (02:25)
[2022-06-05 07:02] LABS: Abs Immature Grans 0.02 10^3/uL (0.0-0.06); Absolute Basophil Count 0.06 10^3/uL (0.0-0.2); Absolute Eosinophil Count 0.21 10^3/uL (0.0-0.7); Absolute Lymphocyte Count 0.99 10^3/uL (1.2-3.4); Absolute Monocyte Count 0.81 10^3/uL (0.1-0.8); Absolute Neutrophil Count 5.49 10^3/uL (1.2-6.7); Basophils % 0.8; Eosinophils % 2.8; HCT 36.3 % (40.0-50.0); HGB 11.3 g/dL (13.5-17.5); Immature Grans % 0.3; Lymphocytes % 13.1; MCH 29.3 pg (27.0-33.0); MCHC 31.1 % (32.0-36.0); MCV 94 fL (80-95); MPV 9.1 fL (8.0-11.0); Monocytes % 10.7; Neutrophils % 72.3; Platelet Count 362 10^3/uL (130-400); RBC 3.86 10^6/uL (4.36-5.78); RDW 16.3 % (11.8-14.1); RDW-SD 54.4 fL; WBC 7.58 10^3/uL (4.4-10.8)
[2022-06-05 07:20] LABS: ALT 58 U/L (16-63); AST 24 U/L (15-37); Albumin 2.9 g/dL (3.4-5.0); Alkaline Phosphatase 68 U/L (46-116); Anion Gap 9.5 mmol/L (3-11); BUN 32 mg/dL (7-18); C-Reactive Protein 1.52 mg/dL (0.0-0.3); CO2 23.5 mmol/L (21.0-32.0); CREATININE 1.6 mg/dL (0.70-1.30); Calcium 8.9 mg/dL (8.5-10.1); Chloride 105 mmol/L (98-107); Estimated GFR 46.06 (mL/min/1.73m2); Glucose 145 mg/dL (74-106); Potassium 4.3 mmol/L (3.5-5.1); Sodium 138 mmol/L (136-145)
--- NOTE | 2022-06-05 07:49 | PUCON_ITS ---
Documented by User: VIRGEN Savage 06/05/22 10:56 General Date Of Service Date of service: 06/04/22 Time of Service: 08:50 Reason for Consult: Pleural Effusion/Respiratory decompensation Assessment and Plan Assessment and plan (1) COPD (chronic obstructive pulmonary disease) with emphysema: Status: Chronic Qualifiers: Emphysema type: unspecified Qualified Code(s): J43.9 - Emphysema, unspecified (2) Type 2 diabetes mellitus: Status: Chronic Qualifiers: Diabetes mellitus complication status: with hyperglycemia Diabetes mellitus proof press operator insulin use: without proof press operator use Qualified Code(s): E11.65 - Type 2 diabetes mellitus with hyperglycemia (3) CHF (congestive heart failure): Status: Acute (4) Loculated pleural effusion: Status: Acute Assessment and plan: 71 year old male admitted for right sided possible loculated pleural effusion requiring drainage. He was seen in the office yesterday and chest XRAY from 05/28 was reviewed which revealed questionable loculated right plueral effusion, he was sent for a chest CT which confirmed this finding. Discussed with Dr. Burger who recommended ED for admission and surgery consult. ED was contacted and report given to Mitali Nelson. Surgery consult deemed US guided drain placement too risky due to location and patient body habitus thus recommending [facility] [place] drain [place]. Recent history of CABG x3 at [facility] 04/11/22. He was discharged from [facility] to home 04/16/22 and developed worsening SOB and syncopal episodes. He was readmitted 05/03/22 for a moderate pericardial effusion and right pleural effusion. The pleural effusion was drained with a pigtail over the course of 9 days and imaging after pigtail removal showed resolve of pleural effusion. He underwent serial TTE's for the pericardial effusion that revealed a stable effusion. It was deemed that a drain would be unsafe due to recent CABG and he was treated with prednisone. He was admitted at [facility] in September 2021 for sepsis secondary to pneumonia (gram negative bacteremia) - he had bilateral pleural effusions at that time, much larger on the right, and this was drained via thoracenetesis His other past medical history includes, venous stasis with recurrent infections in lower extremities, DM2, former smoker, chronic venous insufficiency, Afib on chronic anticoagulation, and systolic heart failure (04/2022 - EF 35%). He has had repeat PFT's and an ABG. PFT's reveal improvement of COPD, ABG did not reveal hypercapnia. He is stable at rest but small movement such as from the bed to a chair causes significant SOB/decompensation. Awaiting transfer to IR at [facility] for a down and back procedure. Pleural Effusion - [facility] IR drain placement and labs/culture/cytology - defer to medicine for holding anticoagulation - consider lytic therapy if unable to drain - blood culture drawn in ED - no growth - continue antibiotics COPD - Maintain SpO2 >90% - continue Stiolto 2puff - not a retainer CHF - maintain euvolemia - lasix per medicine recommendations PFSH All Active Problems (Updated 06/03/22 @ 22:23 by VIRGEN Gaspar) Loculated pleural effusion (Acute) Cardiomyopathy (Acute) CAD (coronary artery disease) (Chronic) Corns and callosities (Acute) Nail dystrophy (Acute) Hypercapnic respiratory failure (Acute) Heart failure, systolic, chronic (Acute) Recurrent infections (Chronic) H/o recurrent leg cellulitis and sepsis CHF (congestive heart failure) (Acute) 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 2 diabetes mellitus (Chronic ~10/2019) Atrial fibrillation (Chronic) Psoriasis (Chronic) Tinea pedis (Acute 10/29/20) [facility] Inf Disease Vitamin B12 deficiency (Chronic) Stasis dermatitis of both legs (Acute) CKD (chronic kidney disease) (Acute) Essential hypertension (Chronic) Type 2 diabetes mellitus (Chronic) Venous insufficiency (Chronic) COPD (chronic obstructive pulmonary disease) with emphysema (Chronic) Obesity (Chronic) Hyperlipidemia, unspecified (Chronic) Tobacco use disorder (Chronic) Medical History Anemia Hypothyroidism NSTEMI (non-ST elevated myocardial infarction) Sepsis syndrome Surgical History Colonoscopy - MAC (11/10/16) Orchiectomy, Radical Left, s/p trauma Repair, ACL Right-Age 17 S/P CABG x 3 (04/11/22) [facility] Family History Father , SD? at age 79. Essential hypertension Myocardial infarction Maternal Aunt Neoplasm Adnexa NOS Maternal Grandmother Neoplasm Adnexa NOS Mother , CVA & PNA at age 81. Essential hypertension Stroke Paternal Grandfather Myocardial infarction Social History Smoking/Tobacco Use Status: Former Tobacco Use Smoking risk assessment performed?: Yes Alcohol Intake: current Alcohol Intake frequency: holidays/special occasions only Drug use: Never Substance use type: does not use Adopted: No Caregiver/Support person: No Household members: spouse, family and children Number of Children: 2 number of grandchildren: 4 Communication Needs: None Education Level: college Details: Some College Do you need help understanding health information?: Rarely Pets and animals: No Sexually active: No Do you think of yourself as: straight/heterosexual Current gender identity: male What is your relationship status?: How often do you talk on the phone with friends or family?: once per week How often do you get together with friends or relatives?: once per week Do you belong to any clubs or organized social groups?: no Panel score (0-1 are the most socially isolated patients): 1 What type of physical activity do you participate in: resistance training Duration: < 15 minutes/day Frequency: 1-2 times per week Chantell/Sabianist: Confucianism Special chantell needs: No Seatbelt use: always Drive intox or ride w/intox funeral limousine driver: No Do you feel safe at home: Yes Do you feel safe in your relationship?: Yes Visit Medication and Allergies Active Medications Generic Name Dose Route Start Last Admin Trade Name Freq PRN Reason Stop Dose Admin Acetaminophen 1,000 mg 06/03/22 16:20 Acetaminophen 500 Mg Tab PO Q6H PRN PRN Albuterol Sulfate 2 puff 06/03/22 07:44 06/04/22 23:18 Albuterol Hfa 8 Gm 60 Puff Inh IH 2 puffs QID PRN PRN Administration Shortness of Breath Aspirin 81 mg 06/03/22 08:30 06/04/22 08:33 Aspirin E.C. 81 Mg Tabec PO Not Given DAILY TAMARA Atorvastatin Calcium 80 mg 06/03/22 21:15 06/04/22 20:36 Atorvastatin 40 Mg Tab PO 80 mg QPM TAMARA Administration Cyanocobalamin 1,000 mcg 06/05/22 08:30 Cyanocobalamin 500 Mcg Tab PO DAILY TAMARA Device 1 each 06/02/22 21:00 Inhaler, Assist Device MC DIRECTED [facility] Dextrose 0 gm 06/02/22 20:11 Glucose Oral Gel 15 Gm/37.5 Gm Tube PO DIRECTED PRN Dextrose/Water 0 gm 06/02/22 20:11 Dextrose 50%-Water 25 Gm/50 Ml Syr IVP DIRECTED PRN Diltiazem HCl 30 mg 06/04/22 14:00 06/04/22 20:36 Diltiazem 30 Mg Tab PO 30 mg TID TAMARA Administration Dimethicone/Zinc Oxide 0 gm 06/02/22 20:11 Jairo Protect Cream 142 Gm Tube TP PRN PRN Furosemide 40 mg 06/03/22 08:30 06/03/22 09:22 Furosemide 20 Mg Tab PO 40 mg DAILY TAMARA Administration Furosemide 20 mg 06/03/22 16:00 06/04/22 21:02 Furosemide 20 Mg Tab PO Not Given 1600 [facility] Vancomycin/PEG/NADA/Lysine/Water 1.25 gm in 250 mls @ 166.667 mls/hr 06/03/22 14:00 06/05/22 02:25 Vancocin Injection IVPB 166.6 mls/hr Q18H [facility] Administration Protocol Metronidazole 500 mg in 100 mls @ 100 mls/hr 06/03/22 08:00 06/05/22 01:21 Flagyl IVPB 100 mls/hr Q6H [facility] Administration Ceftriaxone Sodium/Dextrose 1 gm in 50 mls @ 100 mls/hr 06/03/22 20:00 06/04/22 21:25 Rocephin IVPB Infused Q24H [facility] Infusion IV Miscellaneous Supplies 1 each 06/02/22 16:00 Iv Access IV DIRECTED [facility] Insulin Aspart 0 units 06/03/22 06:00 06/04/22 23:53 Insulin Aspart 300 Units/3 Ml Pen SC 1 units Q6H [facility] Administration Protocol Metoprolol Succinate 100 mg 06/03/22 08:30 06/04/22 20:36 Metoprolol Cr 100 Mg Tabcr PO 100 mg BID [facility] Administration Metoprolol Tartrate 2.5 mg 06/04/22 10:56 Metoprolol 5 Mg/5 Ml Vial IVP Q4H PRN PRN Sodium Chloride 0 ml 06/02/22 16:00 06/05/22 01:20 Normal Saline Flush 10 Ml Syr IVP 10 ml PRN PRN Administration Tiotropium [place]/Olodaterol 2 puff 06/03/22 08:30 06/04/22 09:34 Tiotropium/Olodaterol 10 Puff Inhaler IH 2 inh DAILY TAMARA Administration Allergies shellfish derived Allergy (Intermediate, Verified 06/02/22 15:58) Hives house dust Allergy (Mild, Verified 06/02/22 15:58) hay fever Allergy (Mild, Uncoded 06/02/22 15:58) runny nose and cough Exam Const General: comfortable and no acute distress Other: Sitting up OOB in chair Resp Effort & Inspection: normal respiratory effort and able to speak in complete sentences Auscultation: breath sounds absent on the right (lower) and wheezes expiratory wheezes, left lower and upper bilaterally Results Last Vital Signs Temp 97.0 F L 06/05/22 07:24 Pulse 112 H 06/05/22 07:24 Resp 19 06/05/22 07:24 BP 113/79 06/05/22 07:24 Pulse Ox 95 06/05/22 07:24 Labs 06/05/22 06:32 06/05/22 06:32 Labs: Laboratory Results - last 24 hr 06/05/22 06/05/22 06:32 06:32 WBC 7.58 RBC 3.86 L Hgb 11.3 L Hct 36.3 L MCV 94 MCH 29.3 MCHC 31.1 L RDW 16.3 H Plt Count 362 MPV 9.1 Immature Gran % 0.3 Neutrophils % 72.3 Lymphocytes % 13.1 Monocytes % 10.7 Eosinophils % 2.8 Basophils % 0.8 Nucleated RBC % 0.0 Absolute Neutrophils 5.49 Absolute Lymphocytes 0.99 L Absolute Monocytes 0.81 H Absolute Eosinophils 0.21 Absolute Basophils 0.06 Sodium 138 Potassium 4.3 Chloride 105 Carbon Dioxide 23.5 Anion Gap 9.5 BUN 32 H Creatinine 1.6 H Est GFR (CKD-EPI 2020) 46.06 Glucose 145 H Calcium 8.9 Total Bilirubin 1.0 AST 24 ALT 58 Alkaline Phosphatase 68 C-Reactive Protein 1.52 H Total Protein 7.0 Albumin 2.9 L Documented by User: Jackie Burger MD 06/05/22 11:12 General Date Of Service Date of service: 06/04/22 Time of Service: 08:20 Assessment and Plan Assessment and plan (1) COPD (chronic obstructive pulmonary disease) with emphysema: Status: Chronic Qualifiers: Emphysema type: unspecified Qualified Code(s): J43.9 - Emphysema, unspecified (2) Type 2 diabetes mellitus: Status: Chronic Qualifiers: Diabetes mellitus complication status: with hyperglycemia Diabetes mellitus intermediate insulin use: without proof press operator use Qualified Code(s): E11.65 - Type 2 diabetes mellitus with hyperglycemia (3) CHF (congestive heart failure): Status: Acute (4) Loculated pleural effusion: Status: Acute Assessment and plan: 71 year old male admitted for right sided possible loculated pleural effusion requiring drainage. He was seen in the office yesterday and chest XRAY from 05/28 was reviewed which revealed questionable loculated right plueral effusion, he was sent for a chest CT which confirmed this finding. Discussed with Dr. Burger who recommended ED for admission and surgery consult. ED was contacted and report given to Mitali Nelson. Case discussed with Dr. Garcia by Dr. Burger prior to admission as well. Surgery consult deemed US guided drain placement too risky due to location and patient body habitus thus recommending [facility] for IR drain placement. Recent history of CABG x3 at [facility] 04/11/22. He was discharged from [facility] to home 04/16/22 and developed worsening SOB and syncopal episodes. He was readmitted 05/03/22 for a moderate pericardial effusion and right pleural effusion. The pleural effusion was drained with a pigtail over the course of 9 days and imaging after pigtail removal showed resolve of pleural effusion. He underwent serial TTE's for the pericardial effusion that revealed a stable effusion. It was deemed that a drain would be unsafe due to recent CABG and he was treated with prednisone. He was admitted at [facility] in September 2021 for sepsis secondary to pneumonia (gram negative bacteremia) - he had bilateral pleural effusions at that time, much larger on the right, and this was drained via thoracenetesis His other past medical history includes, venous stasis with recurrent infections in lower extremities, DM2, former smoker, chronic venous insufficiency, Afib on chronic anticoagulation, and systolic heart failure (04/2022 - EF 35%). He has had repeat PFT's and an ABG. PFT's reveal improvement of COPD, ABG did not reveal hypercapnia. He is stable at rest but small movement such as from the bed to a chair causes significant SOB/decompensation. Awaiting transfer to IR at [facility] for a down and back procedure. Pleural Effusion - [facility] IR drain placement and labs/culture/cytology - defer to medicine for holding anticoagulation - consider lytic therapy if unable to drain - blood culture drawn in ED - no growth - continue antibiotics COPD - Maintain SpO2 >90% - continue Stiolto 2puff - not a retainer CHF - maintain euvolemia - lasix per medicine recommendations History of Present Illness Narrative: 71 yo man sent to Ed for admission from pulmonary clinic due to a recent CXR showing a loculated pleural effusion. He had a recent CABG and has had issues with pleural effisions needing draining previously. He is followed in pulmonary clinic for COPD but does have significant heart failure. See office note for more details. He has some dyspnea and chest pains. Review of Systems All systems reviewed & are unremarkable except as noted in HPI and below PFSH All Active Problems (Updated 06/03/22 @ 22:23 by VIRGNE Gaspar) Loculated pleural effusion (Acute) Cardiomyopathy (Acute) CAD (coronary artery disease) (Chronic) Corns and callosities (Acute) Nail dystrophy (Acute) Hypercapnic respiratory failure (Acute) Heart failure, systolic, chronic (Acute) Recurrent infections (Chronic) H/o recurrent leg cellulitis and sepsis CHF (congestive heart failure) (Acute) 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 2 diabetes mellitus (Chronic ~10/2019) Atrial fibrillation (Chronic) Psoriasis (Chronic) Tinea pedis (Acute 10/29/20) [facility] Inf Disease Vitamin B12 deficiency (Chronic) Stasis dermatitis of both legs (Acute) CKD (chronic kidney disease) (Acute) Essential hypertension (Chronic) Type 2 diabetes mellitus (Chronic) Venous insufficiency (Chronic) COPD (chronic obstructive pulmonary disease) with emphysema (Chronic) Obesity (Chronic) Hyperlipidemia, unspecified (Chronic) Tobacco use disorder (Chronic) Medical History Anemia Hypothyroidism NSTEMI (non-ST elevated myocardial infarction) Sepsis syndrome Surgical History Colonoscopy - MAC (11/10/16) Orchiectomy, Radical Left, s/p trauma Repair, ACL Right-Age 17 S/P CABG x 3 (04/11/22) [facility] Family History Father , SD? at age 79. Essential hypertension Myocardial infarction Maternal Aunt Neoplasm Adnexa NOS Maternal Grandmother Neoplasm Adnexa NOS Mother , CVA & PNA at age 81. Essential hypertension Stroke Paternal Grandfather Myocardial infarction Social History Smoking/Tobacco Use Status: Former Tobacco Use Smoking risk assessment performed?: Yes Alcohol Intake: current Alcohol Intake frequency: holidays/special occasions only Drug use: Never Substance use type: does not use Adopted: No Caregiver/Support person: No Household members: spouse, family and children Number of Children: 2 number of grandchildren: 4 Communication Needs: None Education Level: college Details: Some College Do you need help understanding health information?: Rarely Pets and animals: No Sexually active: No Do you think of yourself as: straight/heterosexual Current gender identity: male What is your relationship status?: How often do you talk on the phone with friends or family?: once per week How often do you get together with friends or relatives?: once per week Do you belong to any clubs or organized social groups?: no Panel score (0-1 are the most socially isolated patients): 1 What type of physical activity do you participate in: resistance training Duration: < 15 minutes/day Frequency: 1-2 times per week Chantell/Sabianist: Confucianism Special chantell needs: No Seatbelt use: always Drive intox or ride w/intox funeral limousine driver: No Do you feel safe at home: Yes Do you feel safe in your relationship?: Yes Results Labs 06/05/22 06:32 06/05/22 06:32
[2022-06-05 07:54] LABS: Procalcitonin < 0.1 ng/mL
[2022-06-05] MEDS: Cyanocobalamin 500 MCG TAB 1000 MCG PO (08:27)
[2022-06-05] MEDS: Aspirin E.C. 81 MG TABEC PO (08:27)
[2022-06-05] MEDS: dilTIAZem 30 MG TAB PO ×3 (08:27→21:32)
[2022-06-05] MEDS: Metoprolol CR 100 MG TABCR PO (08:27)
--- NOTE | 2022-06-05 08:37 | PDOC.CMPRO ---
- If Service Date Differs Date of service: 06/05/22 Time of Service: 08:37 Care Management Progress Note S/O: Mejia was sitting up in a chair when CM met with him. He had been to [facility] foir a CT scan of his chest and was asking about results. Mejia shared that he has been sick for the past 4 years. He has had recurring episodes of bacteremia and foot/leg infections. Most recently he has had 3 episodes of pleural effusions which required hospitalization and drainage.The most recent was in April,. He was seen in the ED and sent to [facility]. Antonino shared that the most frustrating part of this process is that no one is able to tell him what is causing the pleural effusions. Mejia also stated that of the 4 episodes of bacteremia, 2 were with rare pathogens seen only in 1/20-30,000. A: Demetrio is a 71 year old male admitted to [facility] on 06/02/22 for a pleural effusion. P: Mejia went to [facility] yeaterday for a down and back IR drainage procedure for his pleural effusion. Per report, over 1900 cc drained since his return. He will likely return home once medically cleared, with a resumption of RN, PT. CM sent a referral to [employer] for insurance support. He will follow up with his PCP, pulmonology, and his discharge plan of care. CM will continue to follow and support discharge needs..
[2022-06-05] MEDS: Tiotropium/Olodaterol 10 PUFF INHALER 2 PUFF IH (09:36)
--- NOTE | 2022-06-05 11:12 | W.PULMPROG ---
Assessment and Plan Assessment and plan (1) COPD (chronic obstructive pulmonary disease) with emphysema: Status: Chronic Qualifiers: Emphysema type: unspecified Qualified Code(s): J43.9 - Emphysema, unspecified (2) CHF (congestive heart failure): Status: Acute (3) Loculated pleural effusion: Status: Acute Assessment and plan: This is a 71 year old male admitted for right sided loculated pleural effusion s/p IR pigtail placement. We discussed requested labs for the fluid with [facility]. Unfortunately, despite this step the fluid was only sent for culture. I called [facility] lab and there is no fluid sample remaining. I will order these to be done here and we will just pull fluid from the tube itself. This will not be as accurate, but I do think we should do this. His bacterial culture is negative. We will get a chest CT today to assess the pockets and possible need for lytic therapy, however there was significant drainage this far, so I do think most of the fluid has been removed. Loculated Pleural Effusion - s/p pigtail - unfortunately fluid not sent for all tests requested - will pull fluid off chest tube today and send to our lab - order placed - consider lytic therapy if CT finds large pockets still present - continue antibiotics COPD - Maintain SpO2 >90% - continue Stiolto 2 puff daily - not a retainer CHF - maintain euvolemia - lasix per medicine recommendations General Date Of Service Date of service: 06/05/22 Time of Service: 08:15 Reason for Consult: Pleural Effusion/Respiratory decompensation Subjective 24 Hour Events: Patient had placement of pigtail chest tube by [facility]. Drainage thus far is 1800cc (placement 1600 yesterday). Fluid is serosanguinous in appearance. Note Note: Patient is feeling well today. He does have some cough with minimal phlegm. Exam Narrative Exam Narrative: Gen: NAD, normal respiratory effort, well-nourished HENT: PERRL, nasal turbinates normal without erythema or inflammation, moist oral mucosa, Mallampati 2, No LAD or JVD Chest: No respiratory distress, normal appearance of chest, chest tube in place and well functioning. Right sided crackles, left lung clear. Heart: regular rate and rhythym, no murmurs, rubs or gallops Abdomen: Non-distended, soft, non tender Extremities: No clubbing, + edema, no cyanosis or rashes Neuro: AAOx3 , non focal Psych: cooperative, appropriate mental affect Objective Last Vital Signs Temp 36.1 C L 06/05/22 07:24 Pulse 112 H 06/05/22 07:24 Resp 19 06/05/22 07:24 BP 113/79 06/05/22 07:24 Pulse Ox 95 06/05/22 07:24 Laboratory Results - last 24 hr 06/05/22 06/05/22 06/05/22 06:32 06:32 06:32 WBC 7.58 RBC 3.86 L Hgb 11.3 L Hct 36.3 L MCV 94 MCH 29.3 MCHC 31.1 L RDW 16.3 H Plt Count 362 MPV 9.1 Immature Gran % 0.3 Neutrophils % 72.3 Lymphocytes % 13.1 Monocytes % 10.7 Eosinophils % 2.8 Basophils % 0.8 Nucleated RBC % 0.0 Absolute Neutrophils 5.49 Absolute Lymphocytes 0.99 L Absolute Monocytes 0.81 H Absolute Eosinophils 0.21 Absolute Basophils 0.06 Sodium 138 Potassium 4.3 Chloride 105 Carbon Dioxide 23.5 Anion Gap 9.5 BUN 32 H Creatinine 1.6 H Est GFR (CKD-EPI 2020) 46.06 Glucose 145 H Calcium 8.9 Total Bilirubin 1.0 AST 24 ALT 58 Alkaline Phosphatase 68 C-Reactive Protein 1.52 H Total Protein 7.0 Albumin 2.9 L Procalcitonin < 0.1 Results Medications Medications: Active Medications Generic Name Dose Route Start Last Admin Trade Name Freq PRN Reason Stop Dose Admin Acetaminophen 1,000 mg 06/03/22 16:20 Acetaminophen 500 Mg Tab PO Q6H PRN PRN Albuterol Sulfate 2 puff 06/03/22 07:44 06/04/22 23:18 Albuterol Hfa 8 Gm 60 Puff Inh IH 2 puffs QID PRN PRN Administration Shortness of Breath Aspirin 81 mg 06/03/22 08:30 06/05/22 08:27 Aspirin E.C. 81 Mg Tabec PO 81 mg DAILY TAMARA Administration Atorvastatin Calcium 80 mg 06/03/22 21:15 06/04/22 20:36 Atorvastatin 40 Mg Tab PO 80 mg QPM TAMARA Administration Cyanocobalamin 1,000 mcg 06/05/22 08:30 06/05/22 08:27 Cyanocobalamin 500 Mcg Tab PO 1,000 mcg DAILY TAMARA Administration Device 1 each 06/02/22 21:00 Inhaler, Assist Device MC DIRECTED TAMARA Dextrose 0 gm 06/02/22 20:11 Glucose Oral Gel 15 Gm/37.5 Gm Tube PO DIRECTED PRN Dextrose/Water 0 gm 06/02/22 20:11 Dextrose 50%-Water 25 Gm/50 Ml Syr IVP DIRECTED PRN Diltiazem HCl 30 mg 06/04/22 14:00 06/05/22 08:27 Diltiazem 30 Mg Tab PO 30 mg TID TAMARA Administration Dimethicone/Zinc Oxide 0 gm 06/02/22 20:11 Jairo Protect Cream 142 Gm Tube TP PRN PRN Furosemide 40 mg 06/03/22 08:30 06/03/22 09:22 Furosemide 20 Mg Tab PO 40 mg DAILY TAMARA Administration Furosemide 20 mg 06/03/22 16:00 06/04/22 21:02 Furosemide 20 Mg Tab PO Not Given 1600 [facility] Vancomycin/PEG/NADA/Lysine/Water 1.25 gm in 250 mls @ 166.667 mls/hr 06/03/22 14:00 06/05/22 02:25 Vancocin Injection IVPB 166.6 mls/hr Q18H [facility] Administration Protocol Metronidazole 500 mg in 100 mls @ 100 mls/hr 06/03/22 08:00 06/05/22 08:27 Flagyl IVPB 100 mls/hr Q6H [facility] Administration Ceftriaxone Sodium/Dextrose 1 gm in 50 mls @ 100 mls/hr 06/03/22 20:00 06/04/22 21:25 Rocephin IVPB Infused Q24H [facility] Infusion IV Miscellaneous Supplies 1 each 06/02/22 16:00 Iv Access IV DIRECTED [facility] Insulin Aspart 0 units 06/05/22 08:00 06/05/22 08:28 Insulin Aspart 300 Units/3 Ml Pen SC Not Given 0800,1200,1700,2200 [facility] Protocol Metoprolol Succinate 100 mg 06/03/22 08:30 06/05/22 08:27 Metoprolol Cr 100 Mg Tabcr PO 100 mg BID TAMARA Administration Metoprolol Tartrate 2.5 mg 06/04/22 10:56 Metoprolol 5 Mg/5 Ml Vial IVP Q4H PRN PRN Sodium Chloride 0 ml 06/02/22 16:00 06/05/22 01:20 Normal Saline Flush 10 Ml Syr IVP 10 ml PRN PRN Administration Tiotropium [place]/Olodaterol 2 puff 06/03/22 08:30 06/05/22 09:36 Tiotropium/Olodaterol 10 Puff Inhaler IH 2 inh DAILY TAMARA Administration Allergies shellfish derived Allergy (Intermediate, Verified 06/02/22 15:58) Hives house dust Allergy (Mild, Verified 06/02/22 15:58) hay fever Allergy (Mild, Uncoded 06/02/22 15:58) runny nose and cough Labs 06/05/22 06:32 06/05/22 06:32 Labs: 06/02/22 22:30 Urine - Voided Urine Culture - Final Gram Positive Celi,Mixed 06/02/22 16:40 Blood Blood Culture - Preliminary NO GROWTH 48 HOURS 06/02/22 16:28 Blood Blood Culture - Preliminary NO GROWTH 48 HOURS 06/03/22 07:30 Nose MRSA Screen - Final Laboratory Tests Range/Units 06/02/22 06/02/22 06/02/22 16:25 16:28 16:28 WBC (4.4-10.8) 10^3/uL RBC (4.36-5.78) 10^6/uL Hgb (13.5-17.5) g/dL Hct (40.0-50.0) % MCV (80-95) fL MCH (27.0-33.0) pg MCHC (32.0-36.0) % RDW (11.8-14.1) % Plt Count (130-400) 10^3/uL MPV (8.0-11.0) fL Immature Gran % Neutrophils % Lymphocytes % Monocytes % Eosinophils % Basophils % Nucleated RBC % (0.0-0.3) % Absolute Neutrophils (1.2-6.7) 10^3/uL Absolute Lymphocytes (1.2-3.4) 10^3/uL Absolute Monocytes (0.1-0.8) 10^3/uL Absolute Eosinophils (0.0-0.7) 10^3/uL Absolute Basophils (0.0-0.2) 10^3/uL PT (9.3-11.0) sec INR (0.9-1.1) APTT (21.5-31.9) sec VBG Lactate (0.6-1.4) mmol/L 1.9 H Sodium (136-145) mmol/L 142 Potassium (3.5-5.1) mmol/L 4.4 Chloride (98-107) mmol/L 104 Carbon Dioxide (21.0-32.0) mmol/L 28.0 Anion Gap (3-11) mmol/L 10.0 BUN (7-18) mg/dL 31 H Creatinine (0.70-1.30) mg/dL 1.8 H Est GFR (CKD-EPI 2020) (mL/min/1.73m2) 39.99 Glucose (74-106) mg/dL 113 H Calcium (8.5-10.1) mg/dL 9.2 Magnesium (1.8-2.4) mg/dL 2.0 Total Bilirubin (0.2-1.0) mg/dL 1.1 H AST (15-37) U/L 28 ALT (16-63) U/L 94 H Alkaline Phosphatase (46-116) U/L 76 Troponin I (<or=60) ng/L < 50 C-Reactive Protein (0.0-0.3) mg/dL Total Protein (6.4-8.2) g/dL 7.6 Albumin (3.4-5.0) g/dL 3.2 L Procalcitonin ng/mL Urine Color (Yellow) Urine Clarity (Clear) Urine pH (5-8) Ur Specific [place] (1.005-1.025) Urine Protein (Negative) mg/dL Urine Ketones (Negative) mg/dL Urine Blood (Negative) Urine Nitrite (Negative) Urine Bilirubin (Negative) Urine Urobilinogen (Up to 0.2) mg/dL Ur Leukocyte Esterase (Negative) Urine Glucose (Negative) mg/dL COVID-19 Source Nasopharynx SARS-CoV-2 (PCR) (Negative) Negative Influenza Type A (PCR) (Negative) Negative Influenza Type B (PCR) (Negative) Negative RSV (PCR) (Negative) Negative Range/Units 06/02/22 06/02/22 06/02/22 16:28 16:40 19:55 WBC (4.4-10.8) 10^3/uL 8.16 RBC (4.36-5.78) 10^6/uL 3.84 L Hgb (13.5-17.5) g/dL 11.1 L Hct (40.0-50.0) % 36.4 L MCV (80-95) fL 95 MCH (27.0-33.0) pg 28.9 MCHC (32.0-36.0) % 30.5 L RDW (11.8-14.1) % 15.9 H Plt Count (130-400) 10^3/uL 360 MPV (8.0-11.0) fL 8.8 Immature Gran % 0.4 Neutrophils % 77.3 Lymphocytes % 10.7 Monocytes % 8.5 Eosinophils % 2.1 Basophils % 1.0 Nucleated RBC % (0.0-0.3) % 0.0 Absolute Neutrophils (1.2-6.7) 10^3/uL 6.32 Absolute Lymphocytes (1.2-3.4) 10^3/uL 0.87 L Absolute Monocytes (0.1-0.8) 10^3/uL 0.69 Absolute Eosinophils (0.0-0.7) 10^3/uL 0.17 Absolute Basophils (0.0-0.2) 10^3/uL 0.08 PT (9.3-11.0) sec 14.9 H INR (0.9-1.1) 1.5 H APTT (21.5-31.9) sec 26.5 VBG Lactate (0.6-1.4) mmol/L Sodium (136-145) mmol/L Potassium (3.5-5.1) mmol/L Chloride (98-107) mmol/L Carbon Dioxide (21.0-32.0) mmol/L Anion Gap (3-11) mmol/L BUN (7-18) mg/dL Creatinine (0.70-1.30) mg/dL Est GFR (CKD-EPI 2020) (mL/min/1.73m2) Glucose (74-106) mg/dL Calcium (8.5-10.1) mg/dL Magnesium (1.8-2.4) mg/dL Total Bilirubin (0.2-1.0) mg/dL AST (15-37) U/L ALT (16-63) U/L Alkaline Phosphatase (46-116) U/L Troponin I (<or=60) ng/L < 50 C-Reactive Protein (0.0-0.3) mg/dL Total Protein (6.4-8.2) g/dL Albumin (3.4-5.0) g/dL Procalcitonin ng/mL Urine Color (Yellow) Urine Clarity (Clear) Urine pH (5-8) Ur Specific [place] (1.005-1.025) Urine Protein (Negative) mg/dL Urine Ketones (Negative) mg/dL Urine Blood (Negative) Urine Nitrite (Negative) Urine Bilirubin (Negative) Urine Urobilinogen (Up to 0.2) mg/dL Ur Leukocyte Esterase (Negative) Urine Glucose (Negative) mg/dL COVID-19 Source SARS-CoV-2 (PCR) (Negative) Influenza Type A (PCR) (Negative) Influenza Type B (PCR) (Negative) RSV (PCR) (Negative) Range/Units 06/02/22 06/05/22 06/05/22 22:30 06:32 06:32 WBC (4.4-10.8) 10^3/uL RBC (4.36-5.78) 10^6/uL Hgb (13.5-17.5) g/dL Hct (40.0-50.0) % MCV (80-95) fL MCH (27.0-33.0) pg MCHC (32.0-36.0) % RDW (11.8-14.1) % Plt Count (130-400) 10^3/uL MPV (8.0-11.0) fL Immature Gran % Neutrophils % Lymphocytes % Monocytes % Eosinophils % Basophils % Nucleated RBC % (0.0-0.3) % Absolute Neutrophils (1.2-6.7) 10^3/uL Absolute Lymphocytes (1.2-3.4) 10^3/uL Absolute Monocytes (0.1-0.8) 10^3/uL Absolute Eosinophils (0.0-0.7) 10^3/uL Absolute Basophils (0.0-0.2) 10^3/uL PT (9.3-11.0) sec INR (0.9-1.1) APTT (21.5-31.9) sec VBG Lactate (0.6-1.4) mmol/L Sodium (136-145) mmol/L 138 Potassium (3.5-5.1) mmol/L 4.3 Chloride (98-107) mmol/L 105 Carbon Dioxide (21.0-32.0) mmol/L 23.5 Anion Gap (3-11) mmol/L 9.5 BUN (7-18) mg/dL 32 H Creatinine (0.70-1.30) mg/dL 1.6 H Est GFR (CKD-EPI 2020) (mL/min/1.73m2) 46.06 Glucose (74-106) mg/dL 145 H Calcium (8.5-10.1) mg/dL 8.9 Magnesium (1.8-2.4) mg/dL Total Bilirubin (0.2-1.0) mg/dL 1.0 AST (15-37) U/L 24 ALT (16-63) U/L 58 Alkaline Phosphatase (46-116) U/L 68 Troponin I (<or=60) ng/L C-Reactive Protein (0.0-0.3) mg/dL 1.52 H Total Protein (6.4-8.2) g/dL 7.0 Albumin (3.4-5.0) g/dL 2.9 L Procalcitonin ng/mL < 0.1 Urine Color (Yellow) Yellow Urine Clarity (Clear) Sl Cloudy Urine pH (5-8) 5.5 Ur Specific [place] (1.005-1.025) 1.025 Urine Protein (Negative) mg/dL Negative Urine Ketones (Negative) mg/dL Negative Urine Blood (Negative) Negative Urine Nitrite (Negative) Negative Urine Bilirubin (Negative) Negative Urine Urobilinogen (Up to 0.2) mg/dL 0.2 Ur Leukocyte Esterase (Negative) Negative Urine Glucose (Negative) mg/dL Negative COVID-19 Source SARS-CoV-2 (PCR) (Negative) Influenza Type A (PCR) (Negative) Influenza Type B (PCR) (Negative) RSV (PCR) (Negative) Range/Units 06/05/22 06:32 WBC (4.4-10.8) 10^3/uL 7.58 RBC (4.36-5.78) 10^6/uL 3.86 L Hgb (13.5-17.5) g/dL 11.3 L Hct (40.0-50.0) % 36.3 L MCV (80-95) fL 94 MCH (27.0-33.0) pg 29.3 MCHC (32.0-36.0) % 31.1 L RDW (11.8-14.1) % 16.3 H Plt Count (130-400) 10^3/uL 362 MPV (8.0-11.0) fL 9.1 Immature Gran % 0.3 Neutrophils % 72.3 Lymphocytes % 13.1 Monocytes % 10.7 Eosinophils % 2.8 Basophils % 0.8 Nucleated RBC % (0.0-0.3) % 0.0 Absolute Neutrophils (1.2-6.7) 10^3/uL 5.49 Absolute Lymphocytes (1.2-3.4) 10^3/uL 0.99 L Absolute Monocytes (0.1-0.8) 10^3/uL 0.81 H Absolute Eosinophils (0.0-0.7) 10^3/uL 0.21 Absolute Basophils (0.0-0.2) 10^3/uL 0.06 PT (9.3-11.0) sec INR (0.9-1.1) APTT (21.5-31.9) sec VBG Lactate (0.6-1.4) mmol/L Sodium (136-145) mmol/L Potassium (3.5-5.1) mmol/L Chloride (98-107) mmol/L Carbon Dioxide (21.0-32.0) mmol/L Anion Gap (3-11) mmol/L BUN (7-18) mg/dL Creatinine (0.70-1.30) mg/dL Est GFR (CKD-EPI 2020) (mL/min/1.73m2) Glucose (74-106) mg/dL Calcium (8.5-10.1) mg/dL Magnesium (1.8-2.4) mg/dL Total Bilirubin (0.2-1.0) mg/dL AST (15-37) U/L ALT (16-63) U/L Alkaline Phosphatase (46-116) U/L Troponin I (<or=60) ng/L C-Reactive Protein (0.0-0.3) mg/dL Total Protein (6.4-8.2) g/dL Albumin (3.4-5.0) g/dL Procalcitonin ng/mL Urine Color (Yellow) Urine Clarity (Clear) Urine pH (5-8) Ur Specific [place] (1.005-1.025) Urine Protein (Negative) mg/dL Urine Ketones (Negative) mg/dL Urine Blood (Negative) Urine Nitrite (Negative) Urine Bilirubin (Negative) Urine Urobilinogen (Up to 0.2) mg/dL Ur Leukocyte Esterase (Negative) Urine Glucose (Negative) mg/dL COVID-19 Source SARS-CoV-2 (PCR) (Negative) Influenza Type A (PCR) (Negative) Influenza Type B (PCR) (Negative) RSV (PCR) (Negative)
[2022-06-05] MEDS: Insulin Aspart 300 UNITS/3 ML PEN SC ×2 (12:03→21:34)
[2022-06-05 14:23] LABS: Clarity Clear; Nucleated Cells 205 uL (0); Source Pleural
[2022-06-05 14:24] LABS: Mononuclear Cells 79 %; Polynuclear Cells 21 %
[2022-06-05 14:28] LABS: LDH 253 U/L (85-227); Total Protein 6.9 g/dL (6.4-8.2)
--- NOTE | 2022-06-05 15:28 | PGE_ITS ---
Date of Service Date of service: 06/05/22 Time of Service: 15:28 Assessment and Plan Assessment and plan (1) Loculated pleural effusion: Status: Acute Assessment and plan: s/p placement of pleural catheter yesterday. [place] [facility] His gram stain was negative for bacteria. culture is no growth today. Pleural fluid cell count is mostly mononuclear rather than poly's. LDH and protein are pending. I think that this is going to be transudate and probably related to his CHF which has been under treated. I am putting him on iv lasix and when adequately diuresed, then consider Entresto and Jardiance. Repeat CT scan showed marked decrease in his pleural effusion. He put out over 2 liters. Professional time spent interviewing and examining patient, discussion of goals of care with hospital team (care management, nursing and consulting professionals) was 30 minutes. (2) Atrial fibrillation: Status: Chronic Assessment and plan: apixaban did not get restarted after he returned last night [place] [facility] I will resume this tonight. As for his HR, the afib rate is better on the addition of diltiazem 30 mg tid. I will change to diltiazem CD 120 mg daily tomorrow. (3) Cardiomyopathy: Status: Acute Assessment and plan: no recent echocardiogram here at [facility]; will request last echo [place] [facility] prior to his CABG demonstrated diffuse LV hypokinesis w/ LVEF 31% and apical ischemia. patient is currently on lasix and metoprolol but not on jardiance or entresto or MAURA-I or ARB. Not clear why this is the case. We have not received any reports [place] [facility] therefore I will order echo tomorrow to evaluate LV and RV function This should be a complete exam to look at diastology, valve function as well. (4) CKD (chronic kidney disease): Status: Acute Assessment and plan: currently at BUN 31 and creatinine of 1.8 which appears to be his new baseline over the past year Qualifiers: Chronic kidney disease stage: stage 3 (moderate) Qualified Code(s): N18.3 - Chronic kidney disease, stage 3 (moderate) (5) COPD (chronic obstructive pulmonary disease) with emphysema: Status: Chronic Assessment and plan: stable. His Stiolto was resumed per Dr. Burger, continue prn albuterol Qualifiers: Emphysema type: unspecified Qualified Code(s): J43.9 - Emphysema, unspecified (6) Type 2 diabetes mellitus: Status: Chronic Assessment and plan: holding glipizide and metformin; treating w/ SSI insulin Qualifiers: Diabetes mellitus penitentiary insulin use: without termite treater use Diabetes mellitus complication status: with hyperglycemia Qualified Code(s): E11.65 - Type 2 diabetes mellitus with hyperglycemia (7) CAD (coronary artery disease): Status: Chronic Assessment and plan: continue ASA, metoprolol, atorvastatin Subjective Subjective Interval history since last seen: Mr. Artis says that he feels fatigued, tired. No chest pain. Breathing is better since the pleural catheter was placed. He has had 1900 mL output since yesterday and another 500 mL today. The pleural fluid charracteristic is that of a transudate. I [place] [facility] [place] gram stain showed no bacteria. The pleural fluid culture is no growth today. As his MRSA screen was negative and no organisms were seen on the pleural fluid culture, I will stop the vancomycin. I will continue the Rocephin for another day and if the pleural fluid remains negative we can stop that also. I think his CHF needs more aggressive treatment. He was only on lasix 40 mg once a day and 20 mg in the afternoon. He was not on an MAURA-I nor an ARB nor a neprolysin such as Entresto. I will start by increasing his lasix acutely to 40 mg tid along w/ spironolactone 50 mg daily. Entresto can be added if his renal function remains stable after he reached euvolemia. Right now he has a lot of bilateral leg edema, bilatateral pleural effusion. His afib rate is a little better today running in the 80's to 90's. I put him on small dose of cardizem 30 mg tid along w/ his Toprol XL 100 mg bid. Exam Narrative Exam Narrative: Demetrio is not in any acute distress, sitting up in his chair. not using his accessory respiratory muscles Barrel chested Lungs: left base w/ some fine rales; right base w/ coars breath sounds and rales; adventitious sounds from his chest catheter Pleural fluid is yellow, clear Abdomen: obese, soft, nontender Legs: bilateral pitting edema 2+; he has compression wraps that were applied by surgery service; toes warm and dry Objective Last Vital Signs Temp 36.8 C 06/05/22 15:21 Pulse 104 H 06/05/22 15:21 Resp 20 06/05/22 15:21 BP 117/73 06/05/22 15:21 Pulse Ox 99 06/05/22 15:21 Laboratory Results - last 24 hr 06/05/22 06/05/22 06/05/22 06:32 06:32 06:32 WBC 7.58 RBC 3.86 L Hgb 11.3 L Hct 36.3 L MCV 94 MCH 29.3 MCHC 31.1 L RDW 16.3 H Plt Count 362 MPV 9.1 Immature Gran % 0.3 Neutrophils % 72.3 Lymphocytes % 13.1 Monocytes % 10.7 Eosinophils % 2.8 Basophils % 0.8 Nucleated RBC % 0.0 Absolute Neutrophils 5.49 Absolute Lymphocytes 0.99 L Absolute Monocytes 0.81 H Absolute Eosinophils 0.21 Absolute Basophils 0.06 Sodium 138 Potassium 4.3 Chloride 105 Carbon Dioxide 23.5 Anion Gap 9.5 BUN 32 H Creatinine 1.6 H Est GFR (CKD-EPI 2020) 46.06 Glucose 145 H Calcium 8.9 Total Bilirubin 1.0 AST 24 ALT 58 Alkaline Phosphatase 68 Lactate Dehydrogenase C-Reactive Protein 1.52 H Total Protein 7.0 Albumin 2.9 L Procalcitonin < 0.1 Fluid Source Fluid Color Fluid Clarity Fluid WBC Fld Polynuclear WBCs % Fluid Mononuclear Cell 06/05/22 06/05/22 12:15 13:28 WBC RBC Hgb Hct MCV MCH MCHC RDW Plt Count MPV Immature Gran % Neutrophils % Lymphocytes % Monocytes % Eosinophils % Basophils % Nucleated RBC % Absolute Neutrophils Absolute Lymphocytes Absolute Monocytes Absolute Eosinophils Absolute Basophils Sodium Potassium Chloride Carbon Dioxide Anion Gap BUN Creatinine Est GFR (CKD-EPI 2020) Glucose Calcium Total Bilirubin AST ALT Alkaline Phosphatase Lactate Dehydrogenase 253 H C-Reactive Protein Total Protein 6.9 Albumin Procalcitonin Fluid Source Pleural Fluid Color Yellow Fluid Clarity Clear Fluid WBC 205 Fld Polynuclear WBCs % 21 Fluid Mononuclear Cell 79 Time Spent with Patient Time Spent with Patient: 25-34 minutes Time was spent: preparing to see the patient(eg.review tests), ordering medications,tests, procedures, indepentently interpreting results, counseling the patient and care coordination
--- NOTE | 2022-06-05 16:28 | CHAPLAIN ---
Demetrio was sitting up in his chair when I visited. He told me he is very tired after going to [place] yesterday for a procedure and knowing he has more tests to do today. He said it's been hard to sleep because he doesn't know when he's going for the next test, and always gets woken up for the next test or vitals check. He talked about all his recent health issues, a series of blood infections, now some cardiac issues and pleural effusions. He worked for many years for [employer] and was given complete physicals every years, he explained, so he seems surprised that these medical issues have plagued him. He believes much of it is hereditary, as he has a friend, older than him, who smokes, drinks, eats poorly and doesn't have any health issues. Demetrio's father had cardiac problems and now his brother is dealing with them too. His will be in later to visit. His son returned from college to help care for Demetrio's father in law, who lives with them, and help Demetrio get to appointments.
[2022-06-05] MEDS: Spironolactone 50 MG TAB PO (16:31)
[2022-06-05 17:32] LABS: Vancomycin, Trough 14.7 ug/mL (10.0-20.0)
[2022-06-05] MEDS: Albuterol HFA 8 GM 60 PUFF INH IH (21:32)
[2022-06-05] MEDS: Atorvastatin 40 MG TAB 80 MG PO (21:33)
[2022-06-05] MEDS: Apixaban 5 MG TAB PO (21:33)
[2022-06-05] MEDS: cefTRIAXone 1 GM/50 ML BAG IVPB (21:33)
[2022-06-05 22:11] LABS: Glucose, Fluid 159 mg/dL (See Note)
[2022-06-06] VITALS (11 sets, daily range): BP systolic 96–166; BP diastolic 73–93; PULSE 61–117; RESP 16–20; TEMP 35.9–37.3; O2SAT 0–99
[2022-06-06] MEDS: metroNIDAZOLE 500 MG/100 ML BAG 100 MG IVPB (02:11)
[2022-06-06 07:05] LABS: Anion Gap 8.3 mmol/L (3-11); BUN 37 mg/dL (7-18); CO2 25.7 mmol/L (21.0-32.0); CREATININE 1.9 mg/dL (0.70-1.30); Calcium 8.8 mg/dL (8.5-10.1); Chloride 101 mmol/L (98-107); Estimated GFR 37.48 (mL/min/1.73m2); Glucose 129 mg/dL (74-106); Potassium 3.8 mmol/L (3.5-5.1); Sodium 135 mmol/L (136-145)
--- NOTE | 2022-06-06 07:18 | PGE_ITS ---
Assessment and Plan Assessment and plan (1) COPD (chronic obstructive pulmonary disease) with emphysema: Status: Chronic Qualifiers: Emphysema type: unspecified Qualified Code(s): J43.9 - Emphysema, unspecified (2) CHF (congestive heart failure): Status: Acute (3) Loculated pleural effusion: Status: Acute Assessment and plan: This is a 71 year old male admitted for right sided loculated pleural effusion s/p IR pigtail placement. We discussed requested labs for the fluid with [facility]. Unfortunately, despite this step the fluid was only sent for culture. I called [facility] lab and there is no fluid sample remaining. I will order these to be done here and we will just pull fluid from the tube itself. The fluid returned with a monocyte predominance - the effusion from September also for lymphocyte predominant. I suspect this fluid sample will also be exudative in nature, same as the last. The differential for a lymphocytic effusion includes TB, rheumato id, cardiac failure/post CABG (but would expect transudative), malignancy. I will non invasively test for these. I do worry that since his prior effusion was exudative and lymphocytic in nature that an occult process may be occurring. A pleural biopsy may be in order for him given the recurrence. His thoracenteses performed at [facility] were not sent for thorough analysis, however I suspect they would be consistent with our findings here. If the final path review find lymphocytes as the predominent cell type on this analysis I will send a referral for pleural biopsy to thoracic at [facility]. Loculated Pleural Effusion with lymphocyte predominance - s/p pigtail - no lytic therapy needed - RF, anti-CCP, Quantiferon, peripheral flow cytometry - continue antibiotics - can DC Flagyl - recommend PT consultation - he may require pleural biopsy - will send referral to [facility] for this when final path on cell count returns COPD - Maintain SpO2 >90% - continue Stiolto 2 puff daily - not a retainer CHF - maintain euvolemia - lasix per medicine recommendations General Date Of Service Date of service: 06/06/22 Time of Service: 07:19 Reason for Consult: Pleural Effusion/Respiratory decompensation Subjective Note Note: He is feeling well today, but still having alot of weakness and fatigue. His pleural fluid is monocyte predominant - likely lymphocytic. He has had 80cc output since midnight and his chest CT shows essentially complete evacuation of the pleural space. He does have some nodular looking areas on the pleura that are concerns and he does have infiltrate in the parenchyma on the left. Exam Narrative Exam Narrative: Gen: NAD, normal respiratory effort, well-nourished HENT: PERRL, nasal turbinates normal without erythema or inflammation, moist oral mucosa, Mallampati 2, No LAD or JVD Chest: No respiratory distress, normal appearance of chest, chest tube in place and well functioning. Right sided crackles, left lung clear. Heart: regular rate and rhythym, no murmurs, rubs or gallops Abdomen: Non-distended, soft, non tender Extremities: No clubbing, + edema, no cyanosis or rashes Neuro: AAOx3 , non focal Psych: cooperative, appropriate mental affect Objective Last Vital Signs Temp 36.1 C L 06/06/22 04:00 Pulse 92 H 06/06/22 04:00 Resp 18 06/06/22 04:00 BP 96/74 L 06/06/22 04:00 Pulse Ox 94 06/06/22 04:00 Laboratory Results - last 24 hr 06/05/22 06/05/22 06/05/22 06:32 06:32 12:15 Sodium 138 Potassium 4.3 Chloride 105 Carbon Dioxide 23.5 Anion Gap 9.5 BUN 32 H Creatinine 1.6 H Est GFR (CKD-EPI 2020) 46.06 Glucose 145 H Calcium 8.9 Total Bilirubin 1.0 AST 24 ALT 58 Alkaline Phosphatase 68 Lactate Dehydrogenase C-Reactive Protein 1.52 H Total Protein 7.0 Albumin 2.9 L Procalcitonin < 0.1 Fluid Source Pleural Fluid Color Yellow Fluid Clarity Clear Fluid WBC 205 Fld Polynuclear WBCs % 21 Fluid Mononuclear Cell 79 Vancomycin Trough 06/05/22 06/05/22 06/06/22 13:28 16:57 05:58 Sodium 135 L Potassium 3.8 Chloride 101 Carbon Dioxide 25.7 Anion Gap 8.3 BUN 37 H Creatinine 1.9 H Est GFR (CKD-EPI 2020) 37.48 Glucose 129 H Calcium 8.8 Total Bilirubin AST ALT Alkaline Phosphatase Lactate Dehydrogenase 253 H C-Reactive Protein Total Protein 6.9 Albumin Procalcitonin Fluid Source Fluid Color Fluid Clarity Fluid WBC Fld Polynuclear WBCs % Fluid Mononuclear Cell Vancomycin Trough 14.7 Results Medications Medications: Active Medications Generic Name Dose Route Start Last Admin Trade Name Freq PRN Reason Stop Dose Admin Acetaminophen 1,000 mg 06/03/22 16:20 Acetaminophen 500 Mg Tab PO Q6H PRN PRN Albuterol Sulfate 2 puff 06/03/22 07:44 06/05/22 21:32 Albuterol Hfa 8 Gm 60 Puff Inh IH 2 puffs QID PRN PRN Administration Shortness of Breath Apixaban 5 mg 06/05/22 20:00 06/05/22 21:33 Apixaban 5 Mg Tab PO 5 mg BID TAMARA Administration Aspirin 81 mg 06/03/22 08:30 06/05/22 08:27 Aspirin E.C. 81 Mg Tabec PO 81 mg DAILY TAMARA Administration Atorvastatin Calcium 80 mg 06/03/22 21:15 06/05/22 21:33 Atorvastatin 40 Mg Tab PO 80 mg QPM TAMARA Administration Cyanocobalamin 1,000 mcg 06/05/22 08:30 06/05/22 08:27 Cyanocobalamin 500 Mcg Tab PO 1,000 mcg DAILY TAMARA Administration Device 1 each 06/02/22 21:00 Inhaler, Assist Device MC DIRECTED TAMARA Dextrose 0 gm 06/02/22 20:11 Glucose Oral Gel 15 Gm/37.5 Gm Tube PO DIRECTED PRN Dextrose/Water 0 gm 06/02/22 20:11 Dextrose 50%-Water 25 Gm/50 Ml Syr IVP DIRECTED PRN Diltiazem HCl 120 mg 06/06/22 08:30 Diltiazem Cd 120 Mg Capcr PO DAILY [facility] Dimethicone/Zinc Oxide 0 gm 06/02/22 20:11 Jairo Protect Cream 142 Gm Tube TP PRN PRN Furosemide 40 mg 06/06/22 08:00 Furosemide 40 Mg/4 Ml Vial IVP BID@0800,1600 [facility] Metronidazole 500 mg in 100 mls @ 100 mls/hr 06/03/22 08:00 06/06/22 02:11 Flagyl IVPB 100 mls/hr Q6H TAMARA Administration Ceftriaxone Sodium/Dextrose 1 gm in 50 mls @ 100 mls/hr 06/03/22 20:00 06/05/22 21:33 Rocephin IVPB 100 mls/hr Q24H TAMARA Administration IV Miscellaneous Supplies 1 each 06/02/22 16:00 Iv Access IV DIRECTED [facility] Insulin Aspart 0 units 06/05/22 08:00 06/05/22 21:34 Insulin Aspart 300 Units/3 Ml Pen SC 2 units 0800,1200,1700,2200 TAMARA Administration Protocol Metoprolol Succinate 100 mg 06/03/22 08:30 06/05/22 21:38 Metoprolol Cr 100 Mg Tabcr PO Not Given BID [facility] Metoprolol Tartrate 2.5 mg 06/04/22 10:56 Metoprolol 5 Mg/5 Ml Vial IVP Q4H PRN PRN Sodium Chloride 0 ml 06/02/22 16:00 06/05/22 01:20 Normal Saline Flush 10 Ml Syr IVP 10 ml PRN PRN Administration Spironolactone 50 mg 06/06/22 08:30 Spironolactone 50 Mg Tab PO DAILY [facility] Tiotropium [place]/Olodaterol 2 puff 06/03/22 08:30 06/05/22 09:36 Tiotropium/Olodaterol 10 Puff Inhaler IH 2 inh DAILY TAMARA Administration Allergies shellfish derived Allergy (Intermediate, Verified 06/02/22 15:58) Hives house dust Allergy (Mild, Verified 06/02/22 15:58) hay fever Allergy (Mild, Uncoded 06/02/22 15:58) runny nose and cough Labs 06/05/22 06:32 06/06/22 05:58 Labs: 06/02/22 16:40 Blood Blood Culture - Preliminary NO GROWTH 72 HOURS 06/02/22 16:28 Blood Blood Culture - Preliminary NO GROWTH 72 HOURS 06/05/22 16:40 Pleural Body Fluid Culture - Pending 06/05/22 16:40 Pleural Gram Stain - Final 06/05/22 16:40 Pleural Anaerobic Culture - Pending 06/02/22 22:30 Urine - Voided Urine Culture - Final Gram Positive Celi,Mixed 06/03/22 07:30 Nose MRSA Screen - Final Laboratory Tests Range/Units 06/02/22 06/02/22 06/02/22 16:25 16:28 16:28 WBC (4.4-10.8) 10^3/uL RBC (4.36-5.78) 10^6/uL Hgb (13.5-17.5) g/dL Hct (40.0-50.0) % MCV (80-95) fL MCH (27.0-33.0) pg MCHC (32.0-36.0) % RDW (11.8-14.1) % Plt Count (130-400) 10^3/uL MPV (8.0-11.0) fL Immature Gran % Neutrophils % Lymphocytes % Monocytes % Eosinophils % Basophils % Nucleated RBC % (0.0-0.3) % Absolute Neutrophils (1.2-6.7) 10^3/uL Absolute Lymphocytes (1.2-3.4) 10^3/uL Absolute Monocytes (0.1-0.8) 10^3/uL Absolute Eosinophils (0.0-0.7) 10^3/uL Absolute Basophils (0.0-0.2) 10^3/uL PT (9.3-11.0) sec INR (0.9-1.1) APTT (21.5-31.9) sec VBG Lactate (0.6-1.4) mmol/L 1.9 H Sodium (136-145) mmol/L 142 Potassium (3.5-5.1) mmol/L 4.4 Chloride (98-107) mmol/L 104 Carbon Dioxide (21.0-32.0) mmol/L 28.0 Anion Gap (3-11) mmol/L 10.0 BUN (7-18) mg/dL 31 H Creatinine (0.70-1.30) mg/dL 1.8 H Est GFR (CKD-EPI 2020) (mL/min/1.73m2) 39.99 Glucose (74-106) mg/dL 113 H Calcium (8.5-10.1) mg/dL 9.2 Magnesium (1.8-2.4) mg/dL 2.0 Total Bilirubin (0.2-1.0) mg/dL 1.1 H AST (15-37) U/L 28 ALT (16-63) U/L 94 H Alkaline Phosphatase (46-116) U/L 76 Lactate Dehydrogenase (85-227) U/L Troponin I (<or=60) ng/L < 50 C-Reactive Protein (0.0-0.3) mg/dL Total Protein (6.4-8.2) g/dL 7.6 Albumin (3.4-5.0) g/dL 3.2 L Procalcitonin ng/mL Urine Color (Yellow) Urine Clarity (Clear) Urine pH (5-8) Ur Specific [place] (1.005-1.025) Urine Protein (Negative) mg/dL Urine Ketones (Negative) mg/dL Urine Blood (Negative) Urine Nitrite (Negative) Urine Bilirubin (Negative) Urine Urobilinogen (Up to 0.2) mg/dL Ur Leukocyte Esterase (Negative) Urine Glucose (Negative) mg/dL Fluid Source Fluid Color Fluid Clarity Fluid WBC (0) uL Fld Polynuclear WBCs % % Fluid Mononuclear Cell % Vancomycin Trough (10.0-20.0) ug/mL COVID-19 Source Nasopharynx SARS-CoV-2 (PCR) (Negative) Negative Influenza Type A (PCR) (Negative) Negative Influenza Type B (PCR) (Negative) Negative RSV (PCR) (Negative) Negative Range/Units 06/02/22 06/02/22 06/02/22 16:28 16:40 19:55 WBC (4.4-10.8) 10^3/uL 8.16 RBC (4.36-5.78) 10^6/uL 3.84 L Hgb (13.5-17.5) g/dL 11.1 L Hct (40.0-50.0) % 36.4 L MCV (80-95) fL 95 MCH (27.0-33.0) pg 28.9 MCHC (32.0-36.0) % 30.5 L RDW (11.8-14.1) % 15.9 H Plt Count (130-400) 10^3/uL 360 MPV (8.0-11.0) fL 8.8 Immature Gran % 0.4 Neutrophils % 77.3 Lymphocytes % 10.7 Monocytes % 8.5 Eosinophils % 2.1 Basophils % 1.0 Nucleated RBC % (0.0-0.3) % 0.0 Absolute Neutrophils (1.2-6.7) 10^3/uL 6.32 Absolute Lymphocytes (1.2-3.4) 10^3/uL 0.87 L Absolute Monocytes (0.1-0.8) 10^3/uL 0.69 Absolute Eosinophils (0.0-0.7) 10^3/uL 0.17 Absolute Basophils (0.0-0.2) 10^3/uL 0.08 PT (9.3-11.0) sec 14.9 H INR (0.9-1.1) 1.5 H APTT (21.5-31.9) sec 26.5 VBG Lactate (0.6-1.4) mmol/L Sodium (136-145) mmol/L Potassium (3.5-5.1) mmol/L Chloride (98-107) mmol/L Carbon Dioxide (21.0-32.0) mmol/L Anion Gap (3-11) mmol/L BUN (7-18) mg/dL Creatinine (0.70-1.30) mg/dL Est GFR (CKD-EPI 2020) (mL/min/1.73m2) Glucose (74-106) mg/dL Calcium (8.5-10.1) mg/dL Magnesium (1.8-2.4) mg/dL Total Bilirubin (0.2-1.0) mg/dL AST (15-37) U/L ALT (16-63) U/L Alkaline Phosphatase (46-116) U/L Lactate Dehydrogenase (85-227) U/L Troponin I (<or=60) ng/L < 50 C-Reactive Protein (0.0-0.3) mg/dL Total Protein (6.4-8.2) g/dL Albumin (3.4-5.0) g/dL Procalcitonin ng/mL Urine Color (Yellow) Urine Clarity (Clear) Urine pH (5-8) Ur Specific [place] (1.005-1.025) Urine Protein (Negative) mg/dL Urine Ketones (Negative) mg/dL Urine Blood (Negative) Urine Nitrite (Negative) Urine Bilirubin (Negative) Urine Urobilinogen (Up to 0.2) mg/dL Ur Leukocyte Esterase (Negative) Urine Glucose (Negative) mg/dL Fluid Source Fluid Color Fluid Clarity Fluid WBC (0) uL Fld Polynuclear WBCs % % Fluid Mononuclear Cell % Vancomycin Trough (10.0-20.0) ug/mL COVID-19 Source SARS-CoV-2 (PCR) (Negative) Influenza Type A (PCR) (Negative) Influenza Type B (PCR) (Negative) RSV (PCR) (Negative) Range/Units 06/02/22 06/05/22 06/05/22 22:30 06:32 06:32 WBC (4.4-10.8) 10^3/uL RBC (4.36-5.78) 10^6/uL Hgb (13.5-17.5) g/dL Hct (40.0-50.0) % MCV (80-95) fL MCH (27.0-33.0) pg MCHC (32.0-36.0) % RDW (11.8-14.1) % Plt Count (130-400) 10^3/uL MPV (8.0-11.0) fL Immature Gran % Neutrophils % Lymphocytes % Monocytes % Eosinophils % Basophils % Nucleated RBC % (0.0-0.3) % Absolute Neutrophils (1.2-6.7) 10^3/uL Absolute Lymphocytes (1.2-3.4) 10^3/uL Absolute Monocytes (0.1-0.8) 10^3/uL Absolute Eosinophils (0.0-0.7) 10^3/uL Absolute Basophils (0.0-0.2) 10^3/uL PT (9.3-11.0) sec INR (0.9-1.1) APTT (21.5-31.9) sec VBG Lactate (0.6-1.4) mmol/L Sodium (136-145) mmol/L 138 Potassium (3.5-5.1) mmol/L 4.3 Chloride (98-107) mmol/L 105 Carbon Dioxide (21.0-32.0) mmol/L 23.5 Anion Gap (3-11) mmol/L 9.5 BUN (7-18) mg/dL 32 H Creatinine (0.70-1.30) mg/dL 1.6 H Est GFR (CKD-EPI 2020) (mL/min/1.73m2) 46.06 Glucose (74-106) mg/dL 145 H Calcium (8.5-10.1) mg/dL 8.9 Magnesium (1.8-2.4) mg/dL Total Bilirubin (0.2-1.0) mg/dL 1.0 AST (15-37) U/L 24 ALT (16-63) U/L 58 Alkaline Phosphatase (46-116) U/L 68 Lactate Dehydrogenase (85-227) U/L Troponin I (<or=60) ng/L C-Reactive Protein (0.0-0.3) mg/dL 1.52 H Total Protein (6.4-8.2) g/dL 7.0 Albumin (3.4-5.0) g/dL 2.9 L Procalcitonin ng/mL < 0.1 Urine Color (Yellow) Yellow Urine Clarity (Clear) Sl Cloudy Urine pH (5-8) 5.5 Ur Specific [place] (1.005-1.025) 1.025 Urine Protein (Negative) mg/dL Negative Urine Ketones (Negative) mg/dL Negative Urine Blood (Negative) Negative Urine Nitrite (Negative) Negative Urine Bilirubin (Negative) Negative Urine Urobilinogen (Up to 0.2) mg/dL 0.2 Ur Leukocyte Esterase (Negative) Negative Urine Glucose (Negative) mg/dL Negative Fluid Source Fluid Color Fluid Clarity Fluid WBC (0) uL Fld Polynuclear WBCs % % Fluid Mononuclear Cell % Vancomycin Trough (10.0-20.0) ug/mL COVID-19 Source SARS-CoV-2 (PCR) (Negative) Influenza Type A (PCR) (Negative) Influenza Type B (PCR) (Negative) RSV (PCR) (Negative) Range/Units 06/05/22 06/05/22 06/05/22 06:32 12:15 13:28 WBC (4.4-10.8) 10^3/uL 7.58 RBC (4.36-5.78) 10^6/uL 3.86 L Hgb (13.5-17.5) g/dL 11.3 L Hct (40.0-50.0) % 36.3 L MCV (80-95) fL 94 MCH (27.0-33.0) pg 29.3 MCHC (32.0-36.0) % 31.1 L RDW (11.8-14.1) % 16.3 H Plt Count (130-400) 10^3/uL 362 MPV (8.0-11.0) fL 9.1 Immature Gran % 0.3 Neutrophils % 72.3 Lymphocytes % 13.1 Monocytes % 10.7 Eosinophils % 2.8 Basophils % 0.8 Nucleated RBC % (0.0-0.3) % 0.0 Absolute Neutrophils (1.2-6.7) 10^3/uL 5.49 Absolute Lymphocytes (1.2-3.4) 10^3/uL 0.99 L Absolute Monocytes (0.1-0.8) 10^3/uL 0.81 H Absolute Eosinophils (0.0-0.7) 10^3/uL 0.21 Absolute Basophils (0.0-0.2) 10^3/uL 0.06 PT (9.3-11.0) sec INR (0.9-1.1) APTT (21.5-31.9) sec VBG Lactate (0.6-1.4) mmol/L Sodium (136-145) mmol/L Potassium (3.5-5.1) mmol/L Chloride (98-107) mmol/L Carbon Dioxide (21.0-32.0) mmol/L Anion Gap (3-11) mmol/L BUN (7-18) mg/dL Creatinine (0.70-1.30) mg/dL Est GFR (CKD-EPI 2020) (mL/min/1.73m2) Glucose (74-106) mg/dL Calcium (8.5-10.1) mg/dL Magnesium (1.8-2.4) mg/dL Total Bilirubin (0.2-1.0) mg/dL AST (15-37) U/L ALT (16-63) U/L Alkaline Phosphatase (46-116) U/L Lactate Dehydrogenase (85-227) U/L 253 H Troponin I (<or=60) ng/L C-Reactive Protein (0.0-0.3) mg/dL Total Protein (6.4-8.2) g/dL 6.9 Albumin (3.4-5.0) g/dL Procalcitonin ng/mL Urine Color (Yellow) Urine Clarity (Clear) Urine pH (5-8) Ur Specific [place] (1.005-1.025) Urine Protein (Negative) mg/dL Urine Ketones (Negative) mg/dL Urine Blood (Negative) Urine Nitrite (Negative) Urine Bilirubin (Negative) Urine Urobilinogen (Up to 0.2) mg/dL Ur Leukocyte Esterase (Negative) Urine Glucose (Negative) mg/dL Fluid Source Pleural Fluid Color Yellow Fluid Clarity Clear Fluid WBC (0) uL 205 Fld Polynuclear WBCs % % 21 Fluid Mononuclear Cell % 79 Vancomycin Trough (10.0-20.0) ug/mL COVID-19 Source SARS-CoV-2 (PCR) (Negative) Influenza Type A (PCR) (Negative) Influenza Type B (PCR) (Negative) RSV (PCR) (Negative) Range/Units 06/05/22 06/06/22 16:57 05:58 WBC (4.4-10.8) 10^3/uL RBC (4.36-5.78) 10^6/uL Hgb (13.5-17.5) g/dL Hct (40.0-50.0) % MCV (80-95) fL MCH (27.0-33.0) pg MCHC (32.0-36.0) % RDW (11.8-14.1) % Plt Count (130-400) 10^3/uL MPV (8.0-11.0) fL Immature Gran % Neutrophils % Lymphocytes % Monocytes % Eosinophils % Basophils % Nucleated RBC % (0.0-0.3) % Absolute Neutrophils (1.2-6.7) 10^3/uL Absolute Lymphocytes (1.2-3.4) 10^3/uL Absolute Monocytes (0.1-0.8) 10^3/uL Absolute Eosinophils (0.0-0.7) 10^3/uL Absolute Basophils (0.0-0.2) 10^3/uL PT (9.3-11.0) sec INR (0.9-1.1) APTT (21.5-31.9) sec VBG Lactate (0.6-1.4) mmol/L Sodium (136-145) mmol/L 135 L Potassium (3.5-5.1) mmol/L 3.8 Chloride (98-107) mmol/L 101 Carbon Dioxide (21.0-32.0) mmol/L 25.7 Anion Gap (3-11) mmol/L 8.3 BUN (7-18) mg/dL 37 H Creatinine (0.70-1.30) mg/dL 1.9 H Est GFR (CKD-EPI 2020) (mL/min/1.73m2) 37.48 Glucose (74-106) mg/dL 129 H Calcium (8.5-10.1) mg/dL 8.8 Magnesium (1.8-2.4) mg/dL Total Bilirubin (0.2-1.0) mg/dL AST (15-37) U/L ALT (16-63) U/L Alkaline Phosphatase (46-116) U/L Lactate Dehydrogenase (85-227) U/L Troponin I (<or=60) ng/L C-Reactive Protein (0.0-0.3) mg/dL Total Protein (6.4-8.2) g/dL Albumin (3.4-5.0) g/dL Procalcitonin ng/mL Urine Color (Yellow) Urine Clarity (Clear) Urine pH (5-8) Ur Specific [place] (1.005-1.025) Urine Protein (Negative) mg/dL Urine Ketones (Negative) mg/dL Urine Blood (Negative) Urine Nitrite (Negative) Urine Bilirubin (Negative) Urine Urobilinogen (Up to 0.2) mg/dL Ur Leukocyte Esterase (Negative) Urine Glucose (Negative) mg/dL Fluid Source Fluid Color Fluid Clarity Fluid WBC (0) uL Fld Polynuclear WBCs % % Fluid Mononuclear Cell % Vancomycin Trough (10.0-20.0) ug/mL 14.7 COVID-19 Source SARS-CoV-2 (PCR) (Negative) Influenza Type A (PCR) (Negative) Influenza Type B (PCR) (Negative) RSV (PCR) (Negative)
[2022-06-06] MEDS: Tiotropium/Olodaterol 10 PUFF INHALER 2 PUFF IH (09:02)
[2022-06-06] MEDS: Apixaban 5 MG TAB PO ×2 (09:10→20:21)
[2022-06-06] MEDS: Spironolactone 50 MG TAB PO (09:10)
[2022-06-06] MEDS: Metoprolol CR 100 MG TABCR PO ×2 (09:10→20:21)
[2022-06-06] MEDS: Aspirin E.C. 81 MG TABEC PO (09:10)
[2022-06-06] MEDS: Cyanocobalamin 500 MCG TAB 1000 MCG PO (09:11)
[2022-06-06] MEDS: dilTIAZem CD 120 MG CAPCR PO (09:12)
[2022-06-06] MEDS: Furosemide 40 MG/4 ML VIAL IVP ×2 (09:12→15:53)
[2022-06-06] MEDS: Insulin Aspart 300 UNITS/3 ML PEN SC ×3 (11:30→22:56)
--- NOTE | 2022-06-06 14:23 | IN_ITS ---
Date of service: 06/06/22 Time of Service: 13:45 PT Notes Visit Reasons: Pleural Effusion Physical Therapy Inpatient Initial Evaluation Date: 06/06/2022 Referring Doctor: Jackie Enriquez MD PT Orders: PT CONSULT: Eval/Treat Precautions: Fall. Standard. Activity as tolerated. Patient Profile/Admitting Diagnosis: Patient is a 71-year-old male patient who presened to the ED on 06/02/2022 due to worsening shortness of breath. Patient is admitted for management of pleaural effusion, AF, cardiomegaly, CKD, COPD, type II DM, CAD, and syncope. PMHX: All Active Problems? Pericardial effusion (Acute) Pleural effusion (Acute) Cardiomyopathy (Acute) CAD (coronary artery disease) (Chronic) Corns and callosities (Acute) Nail dystrophy (Acute) Hypercapnic respiratory failure (Acute) Heart failure, systolic, chronic (Acute) Recurrent infections (Chronic) H/o recurrent leg cellulitis and sepsis CHF (congestive heart failure) (Acute) 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 2 diabetes mellitus (Chronic ~10/2019) Atrial fibrillation (Chronic) Psoriasis (Chronic) Tinea pedis (Acute 10/29/20) [facility] Inf Disease Vitamin B12 deficiency (Chronic) Stasis dermatitis of both legs (Acute) CKD (chronic kidney disease) (Acute) Essential hypertension (Chronic) Type 2 diabetes mellitus (Chronic) Venous insufficiency (Chronic) COPD (chronic obstructive pulmonary disease) with emphysema (Chronic) Obesity (Chronic) Hyperlipidemia, unspecified (Chronic) Tobacco use disorder (Chronic) Medical History? Anemia Hypothyroidism NSTEMI (non-ST elevated myocardial infarction) Sepsis syndrome Surgical History? 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 Independent with mobility ADL perfromance using FWW and 4WW. Equipment Owned/DME: FWW, 4WW Subjective: Short of breath and dizzy with short distance ambulation. Objective: General Observation: Now on room air. Chest tube in place. Unna boot in place. High BMI. IV access in R UE. Mental Status: Alert and oriented as to person, place, time, and purpose. Able to pay attention, focus, and respond appropriately. Pain: 2-3/10 in B legs Vital Signs: WNL as closely monitored by nursing staff ROM: Right Upper Extremity: Shoulder Flexion WFL. Shoulder abduction WFL. Elbow flexion WFL. Wrist flexion WFL. Functional opening and closing of hand WFL. Left Upper Extremity: Shoulder Flexion WFL. Shoulder abduction WFL. Elbow flexion WFL. Wrist flexion WFL. Functional opening and closing of hand WFL. Right Lower Extremity: Hip flexion WFL. Hip abduction WFL. Knee flexion WFL. Ankle dorsiflexion to neutral only. Ankle plantarflexion WFL. Left Lower Extremity: Hip flexion WFL. Hip abduction WFL. Knee flexion WFL. Ankle dorsiflexion to neutral only. Ankle plantarflexion WFL. Strength: Right Upper Extremity: Shoulder flexors 4-/5. Shoulder abductors 4-/5. Elbow flexors 4-/5. Elbow extensors 4-/5. Second Vp Hr Assessment strong. Left Upper Extremity: Shoulder flexors 4-/5. Shoulder abductors 4-/5. Elbow flexors 4-/5. Elbow extensors 4-/5. Second Vp Hr Assessment strong. Right Lower Extremity: Hip flexors 4-/5. Hip abductors 4-/5. Knee flexors 4-/5. Knee extensors 4-/5. Ankle dorsiflexors 3-/5. Ankle plantarflexors 4-/5. Left Lower Extremity: Hip flexors 4-/5. Hip abductors 4-/5. Knee flexors 4-/5. Knee extensors 4-/5. Ankle dorsiflexors 3-/5. Ankle plantarflexors 4-/5. Bed Mobility/Transfers: Sit to stand contact guard assist Stand to sit contact guard assist Gait: Instructed patient with level surface ambulation of 30 feet requiring contact guard assist. [place] decreased. Step height decreased. Step length decreased. Short of breath. Complained of being dizzy that resolved with rest. Balance: Static Sitting: Normal Dynamic Sitting: Normal Static Standing: Fair Dynamic Standing: Fair Special Tests: Mobility Limitations Standardized Measure [employer] AM-PAC 6 clicks Basic Mobility Inpatient Short Form: Raw Score: 18 CMS Score: 47% deficit Informed Consent/Education: Patient was instructed in purpose of PT consult and plan of care. Agreeable to proceed with established PT POC to achieve personal goals. Assessment: Short of breath and dizzy with ambulation. Closely monitor vital signs during mobility ADL performance. Requires use of FWW for all mobility ADL performance. Patient presents with clinical signs and symptoms consistent with current/admitting diagnoses that have resulted to mobility limitations, gait instability, generalized weakness, and overall ADL decline as demonstrated by the following impairment level findings: 1. Decreased strength to B UE/LE major muscle groups 2. Impaired sitting/standing balance 3. Impaired activity tolerance 4. Shortness of breath 5. Swelling Impairments are contributing to the following functional limitations: 1. Decline in bed mobility skills 2. Decline in transfer skills 3. Difficulty with ambulation without assistive device and physical assistance 4. Increased completion time for mobility ADL performance 5. Increased risk for falls 6. Difficulty with managing steps alone safely Patient is assessed as a 34538 moderate complexity based on the following: History: 71-year-old male with past medical history as indicated above Examination: Demonstrable impairment in strength, balance, and mobility level with underlying impairments and functional limitations as exhibited above as well as deficit score of 47% utilizing the [facility] Mobility Inpatient Short Form Presentation: Evolving Decision Makin moderate complexity Goals: Goals X1 week 1. Supine-Sit independent 2. Sit-Supine independent 3. Sit-Stand independent 4. Stand-Sit independent with 4WW 5. Bed-Chair independent with 4WW 6. Chair-Bed independent with 4WW 7. Independent gait on level surface with use of 4WW for at least 200 feet without report of pain nor dyspnea 8. Independent stair negotiation while holding onto B rails for at least 3 steps without report of pain nor dyspnea 9. Independent with home exercise program 10. Good static and dynamic standing balance/tolerance Plan of Care/Treatment Plan: 1-2x/day, 7 days/week x 1 week. Plan of care has been reviewed with the GRANITE POLISHER APPRENTICE providing the service under Physical Therapy direction. Initiate Physical Therapy intervention for pain management as needed, strengthening, bed mobility, transfers, gait, stairs, balance training, and use of assistive device. DISCHARGE RECOMMENDATIONS: [] Home with no services [] [X] Home with services. Patient will benefit from home health PT services in order to progress mobility level using least restrictive assistive ambulatory device, assess home safety, identify additional equipment needs, and establish a functional maintenance program that will increase ability of patient to remain at home. [] Home with outpatient PT [] [] SNF for continued rehabilitation [] [] Snf Care [] [] SNF versus LTC based on ability to participate and progress [] TREATMENT CODE/TIME: 07945 x 20 minutes, 05918 x 14 minutes beginning at 13:45 PM. Thank you for the opportunity to participate in the care of this patient. Danica Arreola PT, DPT, CLT [facility] [place], [place]
--- NOTE | 2022-06-06 14:25 | PGE_ITS ---
Date of Service Date of service: 06/06/22 Time of Service: 14:25 Assessment and Plan Assessment and plan (1) Loculated pleural effusion: Status: Acute Assessment and plan: s/p placement of pleural catheter. His gram stain of pleural fluid was negative for bacteria. culture is no growth today. Pleural fluid cell count is mostly mononuclear rather than poly's. LDH and protein are pending. Cont iv lasix and when adequately diuresed, then consider Entresto and Jardiance. Repeat CT scan showed marked decrease in his pleural effusion. He put out over [address] Burger, pulmonary med following. (2) Atrial fibrillation: Status: Chronic Assessment and plan: Cont apixiban. HR better controlled with addition of diltiazem; now on dilt CD 120mg daily. Telemetry. (3) Cardiomyopathy: Status: Acute Assessment and plan: no recent echocardiogram here at [facility]; [place] [facility] [place] prior to his CABG demonstrated diffuse LV hypokinesis w/ LVEF 31% and apical ischemia. patient is currently on lasix and metoprolol but not on jardiance or entresto or MAURA-I or ARB. Not clear why this is the case. We have not received any [place] [facility] [place] therefore I will order echo tomorrow to evaluate LV and RV function This should be a complete exam to look at diastology, valve function as well. (4) CKD (chronic kidney disease): Status: Acute Assessment and plan: currently at BUN 31 and creatinine of 1.9 which appears to be his new baseline over the past year Qualifiers: Chronic kidney disease stage: stage 3 (moderate) Qualified Code(s): N18.3 - Chronic kidney disease, stage 3 (moderate) (5) COPD (chronic obstructive pulmonary disease) with emphysema: Status: Chronic Assessment and plan: stable. His Stiolto was resumed per Dr. Burger, continue prn albuterol Qualifiers: Emphysema type: unspecified Qualified Code(s): J43.9 - Emphysema, unspecified (6) Type 2 diabetes mellitus: Status: Chronic Assessment and plan: holding glipizide and metformin; treating w/ SSI insulin sensitive scale. Adequately controlled in general. Monitor. 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 ) and afebrile; denies diarrhea, nausea or vomiting Exam Narrative Exam Narrative: Gen: sitting up in his chair. Pleasant and conversant. Chest: Barrel chested. CV: Irreg Irreg. Lungs: Diminished breath sounds with crackles on the right. Nonlabored breathing. CT in place. Abdomen: obese, soft, nontender Legs: Compression wraps in place. toes warm and dry Objective Last Vital Signs Temp 36.1 C L 06/06/22 04:00 Pulse 92 H 06/06/22 04:00 Resp 18 06/06/22 04:00 BP 96/74 L 06/06/22 04:00 Pulse Ox 0 L 06/06/22 08:30 Laboratory Results - last 24 hr 06/05/22 06/05/22 06/05/22 12:15 12:15 13:28 Sodium Potassium Chloride Carbon Dioxide Anion Gap BUN Creatinine Est GFR (CKD-EPI 2020) Glucose Calcium Lactate Dehydrogenase 253 H Total Protein 6.9 Fluid Glucose 159 Vancomycin Trough Path Cons Comment SEE COMMENT 06/05/22 06/06/22 16:57 05:58 Sodium 135 L Potassium 3.8 Chloride 101 Carbon Dioxide 25.7 Anion Gap 8.3 BUN 37 H Creatinine 1.9 H Est GFR (CKD-EPI 2020) 37.48 Glucose 129 H Calcium 8.8 Lactate Dehydrogenase Total Protein Fluid Glucose Vancomycin Trough 14.7 Path Cons Comment Time Spent with Patient Time Spent with Patient: 25-34 minutes Time was spent: preparing to see the patient(eg.review tests), obtaining and/or reviewing separately otained hiistory, ordering medications,tests, procedures, referring, communicating with other health memory care program director and indepentently interpreting results
--- NOTE | 2022-06-06 14:34 | CMPROGNOTE_ITS ---
- If Service Date Differs Date of service: 06/06/22 Time of Service: 14:34 Care Management Progress Note S/O: Mejia was having a wound consult when CM attempted to meet with him. He is being closely monitored, and is not yet medically cleared. His repeat CT scan showed decrease in his pleural effusion. CM will continue to follow. A: Demetrio is a 71 year old male admitted to [facility] on 06/02/22 for a pleural effusion. P: [place] [facility] [place] drainage [place] for his pleural effusion. He will likely return home once medically cleared, with a resumption of RN, PT. CM sent a referral to [employer] for insurance support. He will follow up with his PCP, pulmonology, and his discharge plan of care. CM will continue to follow and support discharge needs..
[2022-06-06 15:32] LABS: Fluid Type Pleural Fluid; Lactate Dehydrogenase (LD), BF 197 U/L
--- NOTE | 2022-06-06 18:11 | WOUNDCONS ---
- If Service Date Differs Date of service: 06/06/22 Time of Service: 16:00 Wound Initial Evaluation Narrative: Patient who comes to the ED with SOB, He is found to have pleural effusions needing the insertion of a chest tube. He has a PMX of A FIB, NSTEMI, triple bypass. He has been seen by home health, and at the suggestion of his promotional marketing analyst , have been applying UNNA boots due to his significant lower extremity edema. He addresses his concerns and thought s o this scribe. His questions are answered, and he agrees to have the consult performed. H&P and other pertinent information were reviewed prior to consult. Body Four View: 1 - edema 2 - edema - Wound Left Lower Tib/Fib(lower leg) Wound Type: Other (edenemous) Wound General Appearance: Well Approximated, Clean/Dry, Healing Well Wound Surrounding Tissue Appearance: Dark Red Wound Length: 44 cm Wound Width: 45 cm Wound Depth: 0.1 cm (less than) Wound Drainage Amount: None Wound Drainage Odor: None/Absent Wound Drainage Description: No drainage Wound Topical Solution/Irrigant: Saline Irrigant Wound Debridement Method: Other (Debrisoft) Wound Debridement Result: Healthy Tissue Revealed Wound Debridement Amount of Tissue Removed: Minimal Right Lower Tib/Fib(lower leg) Wound Type: Other (Edenemous) Wound General Appearance: Well Approximated, Healing Well Wound Surrounding Tissue Appearance: Dark Red Wound Length: 43.2 cm Wound Width: 48.2 cm Wound Depth: 0.1 cm (less than) Wound Drainage Amount: None Wound Drainage Odor: None/Absent Wound Drainage Description: No drainage Wound Topical Solution/Irrigant: Saline Irrigant Wound Debridement Method: Mechanical, Other (Debrisoft) Wound Debridement Result: Healthy Tissue Revealed Wound Debridement Amount of Tissue Removed: Minimal - Circulation, Sensation, Motion Edema Degree: 4+ Peripheral Pulse Strength: Weak Sensation Description: Within Normal Limits Skin Temperature: Cool Skin Color: Mirza Patient who has a significant heart and lung disease process. Both legs have 4+ edema. He is deconditioned and does not ambulate very well. he understands the need for compression and elevation - Photo Photo: - Treatment/Dressing Change Topicals/Ointments: None Cleanse With: Cleanser with Surfactant Dressing Types: Elastic Bandage, Unna Boot - Nutrition Education Reviewed Nutrition Education: No - Recomendation Recomendation:: Bilateral lower extremity. [place] both legs with wound cleanser, then scrub with Debrisoft pad. Pat dry with gauze. Apply UNNA boots, starting just behind the toes, and wrapping to two inches below the knees. Apply compression with levi wraps to two inches below the knees. Change UNNA boot weekly and measure legs at that time. Take down levi wraps daily to inspect skin, the wrap again. Physcian/Nurse Practioner Notified: Yes (Dr. Goldstein) Treatment Time - Time Total Time Spent with Patient: 45
[2022-06-06 19:05] LABS: Rheumatoid Factor <8.6 IU/mL (<12.0)
[2022-06-06] MEDS: Atorvastatin 40 MG TAB 80 MG PO (20:21)
[2022-06-06] MEDS: cefTRIAXone 1 GM/50 ML BAG IVPB (20:21)
[2022-06-07] VITALS (8 sets, daily range): BP systolic 93–121; BP diastolic 53–85; PULSE 60–127; RESP 16–20; TEMP 35.9–36.9; O2SAT 94–98
[2022-06-07] MEDS: Albuterol HFA 8 GM 60 PUFF INH IH (03:45)
[2022-06-07 07:33] LABS: Anion Gap 7.5 mmol/L (3-11); BUN 34 mg/dL (7-18); CO2 28.5 mmol/L (21.0-32.0); CREATININE 1.8 mg/dL (0.70-1.30); Calcium 8.8 mg/dL (8.5-10.1); Chloride 103 mmol/L (98-107); Estimated GFR 39.99 (mL/min/1.73m2); Glucose 152 mg/dL (74-106); Potassium 4.2 mmol/L (3.5-5.1); Sodium 139 mmol/L (136-145)
[2022-06-07] MEDS: Insulin Aspart 300 UNITS/3 ML PEN SC ×4 (08:02→21:21)
[2022-06-07] MEDS: Metoprolol CR 100 MG TABCR PO ×2 (08:04→20:03)
[2022-06-07] MEDS: dilTIAZem CD 120 MG CAPCR PO (08:04)
[2022-06-07] MEDS: Aspirin E.C. 81 MG TABEC PO (08:04)
[2022-06-07] MEDS: Cyanocobalamin 500 MCG TAB 1000 MCG PO (08:04)
[2022-06-07] MEDS: Apixaban 5 MG TAB PO ×2 (08:05→20:03)
[2022-06-07] MEDS: Spironolactone 50 MG TAB PO (08:05)
[2022-06-07] MEDS: Furosemide 40 MG/4 ML VIAL IVP (08:05)
[2022-06-07] MEDS: Tiotropium/Olodaterol 10 PUFF INHALER 2 PUFF IH (08:28)
[2022-06-07 10:43] LABS: Fluid Type Pleural Fluid; Protein,Total, BF 2.7 g/dL
--- NOTE | 2022-06-07 11:35 | PTTR_ITS ---
PT Notes Visit Reasons: Pleural Effusion Date: 06/07/2022 PRECAUTIONS: Activity as tolerated, Fall SUBJECTIVE: Pt sitting in recliner, pt reports feeling depressed and complained that he is very tired and that he missed sleep due to all of the procedures that needs to be done interrupting with sleep. pt reports that he is feeling very weak and was very hesistant with participating with therapy, pt eventually agreed to participating after strong encouragement from this GRASSLAND CONSERVATIONIST. OBJECTIVE:? BED MOBILITY/TRANSFERS? Sit-stand: min A? Stand-sit: min A Therapeutic Activity 53258 15mins: pt chair mobility scooting forward, side to side sitting without using backrest for 5mins, sit to stand from recliner to FWW min A with cue for hand placement and leaning body forward for proper leverage, static standing with trunk leaning forward on FWW 1min, stand to sit max A with cue for reaching behind to facilitate controlled descent.? Patient was instructed with LE strengthening program, completed in a seated position, to include: ankle pumps, heel raises, LAQ, hip flexion and hip abduction.? Patient requires visual and verbal cueing for proper exercise performance, as well as cueing for re-orientation to task.? ASSESSMENT: pt reports fatigue with sit to stand activity and refused further engagement, pt satyed in recliner since pt refused to go back in bed. PLAN: Continue with global UE and LE strengthening, as tolerated, for improved safety with mobility. TREATMENT CODE/TIME: Session 1: 15 minutes; 90566 x1?(8:50-9:05am)
--- NOTE | 2022-06-07 14:17 | NUR.NOTE ---
Nursing Note: Loss of consciousness @ 36sec: Was assisting pt who is still on the commode, patient loss consciousness, call and shook patient, snoring, no response for a few second. When patient regain consciousness, he denies any chest pain, was not aware he loss consciousness. BP 121/85 Map 97; Pulse 91, blood sugar 171, O2 sat room air 97
--- NOTE | 2022-06-07 17:51 | W.PM.PROGNOT ---
Date of Service Date of service: 06/07/22 Time of Service: 17:51 Assessment and Plan Assessment and plan (1) Loculated pleural effusion: Status: Acute Assessment and plan: s/p placement of pleural catheter. Output since midnight of 270 ml His gram stain of pleural fluid was negative for bacteria. culture is no growth today. Pleural fluid cell count is mostly mononuclear rather than poly's. LDH and protein are pending. Cont iv lasix and when adequately diuresed, then consider Entresto and Jardiance. Repeat CT scan showed marked decrease in his pleural effusion. Dr Burger, pulmonary med following. (2) Atrial fibrillation: Status: Chronic Assessment and plan: Cont apixiban. HR better controlled with addition of diltiazem; now on dilt CD 120mg daily. Telemetry. (3) Cardiomyopathy: Status: Acute Assessment and plan: no recent echocardiogram here at [facility]; [place] [facility] [place] prior to his CABG demonstrated diffuse LV hypokinesis w/ LVEF 31% and apical ischemia. patient is currently on lasix and metoprolol but not on jardiance or entresto or MAURA-I or ARB. Not clear why this is the case. We have not received any reports [place] [facility] therefore I will order echo tomorrow to evaluate LV and RV function This should be a complete exam to look at diastology, valve function as well. (4) CKD (chronic kidney disease): Status: Acute Assessment and plan: currently at BUN 31 and creatinine of 1.8 which appears to be his new baseline over the past year Qualifiers: Chronic kidney disease stage: stage 3 (moderate) Qualified Code(s): N18.3 - Chronic kidney disease, stage 3 (moderate) (5) COPD (chronic obstructive pulmonary disease) with emphysema: Status: Chronic Assessment and plan: stable. His Stiolto was resumed per Dr. Burger, continue prn albuterol Qualifiers: Emphysema type: unspecified Qualified Code(s): J43.9 - Emphysema, unspecified (6) Type 2 diabetes mellitus: Status: Chronic Assessment and plan: holding glipizide and metformin; treating w/ SSI insulin sensitive scale. Adequately controlled in general. Monitor. 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 Nurse was present. When he regained consciousness he was A&O x 3. He reports this happens to him periodically. He always since while urinating. Later, another nursing accompanied him to the commode and she noted he was consistently stifling a cough and in effect doing a valsalva maneuver. He does this so he doesn't leak urine before he sits to urinate. This is likely the etiology of his syncopal episodes. He is encourage to cough freely. Qualifiers: Syncope type: unspecified Qualified Code(s): R55 - Syncope and collapse Subjective Subjective Patient reports: feels better, tolerating a regular diet, shortness of breath and afebrile; denies nausea or vomiting Interval history since last seen: Episode of syncope while on the commode; see A&P. Exam Narrative Exam Narrative: Gen: sitting up in his chair. Pleasant and conversant. NAD. CV: Irreg Irreg. Lungs: Diminished breath sounds but improved air movement. Nonlabored breathing. Abdomen: obese, soft, nontender Legs: Compression wraps in place. toes warm and dry Objective Last Vital Signs Temp 35.9 C L 06/07/22 14:23 Pulse 127 H 06/07/22 17:05 Resp 16 06/07/22 14:23 BP 121/85 06/07/22 14:23 Pulse Ox 98 06/07/22 11:23 Laboratory Results - last 24 hr 06/07/22 07:12 Sodium 139 Potassium 4.2 Chloride 103 Carbon Dioxide 28.5 Anion Gap 7.5 BUN 34 H Creatinine 1.8 H Est GFR (CKD-EPI 2020) 39.99 Glucose 152 H Calcium 8.8 Time Spent with Patient Time Spent with Patient: 25-34 minutes Time was spent: preparing to see the patient(eg.review tests), ordering medications,tests, procedures, indepentently interpreting results and counseling the patient
[2022-06-07] MEDS: Atorvastatin 40 MG TAB 80 MG PO (20:03)
[2022-06-07] MEDS: cefTRIAXone 1 GM/50 ML BAG IVPB (20:03)
[2022-06-08] VITALS (7 sets, daily range): BP systolic 103–130; BP diastolic 68–85; PULSE 65–100; RESP 16–20; TEMP 36.2–37; O2SAT 95–99
[2022-06-08 07:11] LABS: Anion Gap 10.3 mmol/L (3-11); BUN 31 mg/dL (7-18); CO2 25.7 mmol/L (21.0-32.0); CREATININE 1.6 mg/dL (0.70-1.30); Calcium 8.9 mg/dL (8.5-10.1); Chloride 103 mmol/L (98-107); Estimated GFR 46.06 (mL/min/1.73m2); Glucose 197 mg/dL (74-106); Potassium 3.9 mmol/L (3.5-5.1); Sodium 139 mmol/L (136-145)
[2022-06-08] MEDS: Furosemide 40 MG/4 ML VIAL IVP (08:32)
[2022-06-08] MEDS: Insulin Aspart 300 UNITS/3 ML PEN SC ×4 (08:32→21:43)
[2022-06-08] MEDS: Tiotropium/Olodaterol 10 PUFF INHALER 2 PUFF IH (08:32)
[2022-06-08] MEDS: Aspirin E.C. 81 MG TABEC PO (08:33)
[2022-06-08] MEDS: Apixaban 5 MG TAB PO ×2 (08:33→19:39)
[2022-06-08] MEDS: Normal Saline Flush 10 ML SYR IVP (08:33)
[2022-06-08] MEDS: Spironolactone 50 MG TAB PO (08:33)
[2022-06-08] MEDS: Metoprolol CR 100 MG TABCR PO ×2 (08:33→19:39)
[2022-06-08] MEDS: dilTIAZem CD 120 MG CAPCR PO (08:33)
[2022-06-08] MEDS: Cyanocobalamin 500 MCG TAB 1000 MCG PO (08:33)
--- NOTE | 2022-06-08 12:36 | PT.INTREAT ---
PT Notes Visit Reasons: Pleural Effusion SUBJECTIVE: Pt in commode when approached for therapy this morning, pt agreed to participating with transfer training but refused walking ativity reporting he had 3 episodes of losing consciousness last night while pt was in seated position, no falls with nurses present on 2 occasions. OBJECTIVE:? BED MOBILITY/TRANSFERS? Sit-stand: min A? Stand-sit: min A Stand pivot transfer going from commode to recliner min A Therapeutic Activity 66844 15mins: Seated therex doing gluteal setting, seated marching, seated hip abduction/adduction, ankle pumping to conclude session. ASSESSMENT: pt reports fatigue with sit to stand activity and refused further engagement, pt stayed in recliner since pt refused to go back in bed. PLAN: Continue with global UE and LE strengthening, as tolerated, for improved safety with mobility. TREATMENT CODE/TIME: Session 1: 15 minutes; 58029 x1?(10:20-10:35am)
[2022-06-08] MEDS: Albuterol HFA 8 GM 60 PUFF INH IH (12:41)
--- NOTE | 2022-06-08 18:26 | PGE_ITS ---
Date of Service Date of service: 06/08/22 Time of Service: 18:27 Assessment and Plan Assessment and plan (1) Loculated pleural effusion: Status: Acute Assessment and plan: s/p placement of pleural catheter. Output since midnight of 165 ml His gram stain of pleural fluid was negative for bacteria. culture is no growth today. Pleural fluid cell count is mostly mononuclear rather than poly's. LDH and protein are pending. Cont iv lasix; now only daily. Consider Entresto and Jardiance. Repeat CT scan showed marked decrease in his pleural effusion. Dr Burger, pulmonary med following. (2) Atrial fibrillation: Status: Chronic Assessment and plan: Cont apixiban. HR better controlled with addition of diltiazem; now on dilt CD 120mg daily. Telemetry. (3) Cardiomyopathy: Status: Acute Assessment and plan: no recent echocardiogram here at [facility]; will request last echo from [facility]. MPI prior to his CABG demonstrated diffuse LV hypokinesis w/ LVEF 31% and apical ischemia. patient is currently on lasix and metoprolol but not on jardiance or entresto or MAURA-I or ARB. Not clear why this is the case. We have not received any reports from [facility], therefore I will order echo tomorrow to evaluate LV and RV function This should be a complete exam to look at diastology, valve function as well. (4) CKD (chronic kidney disease): Status: Acute Assessment and plan: currently at BUN 31 and creatinine of 1.6 which appears to be his new baseline o amisha the past year Qualifiers: Chronic kidney disease stage: stage 3 (moderate) Qualified Code(s): N18.3 - Chronic kidney disease, stage 3 (moderate) (5) COPD (chronic obstructive pulmonary disease) with emphysema: Status: Chronic Assessment and plan: stable. His Stiolto was resumed per Dr. Burger, continue prn albuterol Qualifiers: Emphysema type: unspecified Qualified Code(s): J43.9 - Emphysema, unspecified (6) Type 2 diabetes mellitus: Status: Chronic Assessment and plan: holding glipizide and metformin; treating w/ SSI insulin sensitive scale. Adequately controlled in general. Monitor. Qualifiers: Diabetes mellitus long term care social worker insulin use: without [place] [facility] use Diabetes mellitus complication status: with hyperglycemia Qualified Code(s): E11.65 - Type 2 diabetes mellitus with hyperglycemia (7) CAD (coronary artery disease): Status: Chronic Assessment and plan: continue ASA, metoprolol, atorvastatin (8) Syncope: Status: Inactive Assessment and plan: While on the commode, he had a syncopal episode that lasted appx 36 secs. Nurse was present. When he regained consciousness he was A&O x 3. He reports this happens to him periodically. He always since while urinating. Later, another nursing accompanied him to the commode and she noted he was consistently stifling a cough and in effect doing a valsalva maneuver. This is likely the etiology of his syncopal episodes. He is encourage to cough freely. He states he doesn't consciously do this and today avoided doing so when going to and while on the commode. Qualifiers: Syncope type: unspecified Qualified Code(s): R55 - Syncope and collapse Subjective Subjective Patient reports: no new complaints, tolerating a regular diet and afebrile; denies nausea or vomiting Interval history since last seen: No further syncopal episodes. Exam Narrative Exam Narrative: Gen: sitting up in his chair. Pleasant and conversant. NAD. CV: Irreg Irreg. Lungs: Diminished breath sounds but improved air movement. Nonlabored breathing. Abdomen: obese, soft, nontender Legs: Compression wraps in place. toes warm and dry Psych: affect appropriate. Objective Last Vital Signs Temp 36.7 C 06/08/22 14:17 Pulse 93 H 06/08/22 15:00 Resp 18 06/08/22 14:17 BP 103/68 06/08/22 14:17 Pulse Ox 97 06/08/22 14:17 Laboratory Results - last 24 hr 06/08/22 06:37 Sodium 139 Potassium 3.9 Chloride 103 Carbon Dioxide 25.7 Anion Gap 10.3 BUN 31 H Creatinine 1.6 H Est GFR (CKD-EPI 2020) 46.06 Glucose 197 H Calcium 8.9 Time Spent with Patient Time Spent with Patient: 25-34 minutes Time was spent: preparing to see the patient(eg.review tests), ordering medications,tests, procedures, referring, communicating with other health career development manager and indepentently interpreting results
[2022-06-08] MEDS: Atorvastatin 40 MG TAB 80 MG PO (19:39)
[2022-06-08] MEDS: cefTRIAXone 1 GM/50 ML BAG IVPB (19:39)
[2022-06-09] VITALS (11 sets, daily range): BP systolic 99–135; BP diastolic 35–85; PULSE 56–106; RESP 16–18; TEMP 36.2–36.9; O2SAT 94–98
--- NOTE | 2022-06-09 07:02 | W.PULMPROG ---
Assessment and Plan Assessment and plan (1) COPD (chronic obstructive pulmonary disease) with emphysema: Status: Chronic Qualifiers: Emphysema type: unspecified Qualified Code(s): J43.9 - Emphysema, unspecified (2) CHF (congestive heart failure): Status: Acute (3) Loculated pleural effusion: Status: Acute Assessment and plan: This is a 71 year old male admitted for right sided loculated pleural effusion s/p IR pigtail placement. We discussed requested labs for the fluid with [facility]. Unfortunately, despite this step the fluid was only sent for culture. I called [facility] and there is no fluid sample remaining. I will order these to be done here and we will just pull fluid from the tube itself. The fluid returned with a monocyte predominance - the effusion from September also for lymphocyte predominant. I suspect this fluid sample will also be exudative in nature, same as the last. The differential for a lymphocytic effusion includes TB, rheumatoid, cardiac failure/post CABG (but would expect transudative), malignancy. I will non invasively test for these. I do worry that since his prior effusion was exudative and lymphocytic in nature that an occult process may be occurring. A pleural biopsy may be in order for him given the recurrence. His thoracenteses performed at [facility] were not sent for thorough analysis, however I suspect they would be consistent with our findings here. The final review did find a predominance of lymphocytes. I discussed a pleural biopsy with him at [facility] and he is agreeable for this referral to be placed. Loculated Pleural Effusion with lymphocyte predominance - s/p pigtail - chest tube can be removed today - it is an IR pigtail with a stabilizing thread that will need to be released (or tube cut) prior to removal - RF negative - anti-CCP, flow cytometry, Quanteferon pending - continue antibiotics for a 10 day course- can change ceftriaxone to PO Augmentin for remainder of course - I will place a referral for [facility] [place] for consideration of a pleural biopsy COPD - Maintain SpO2 >90% - continue Stiolto 2 puff daily - not a retainer CHF - maintain euvolemia - lasix per medicine recommendations General Date Of Service Date of service: 06/09/22 Time of Service: 07:02 Reason for Consult: Pleural Effusion/Respiratory decompensation Subjective Note Note: Mejia is doing well. Chest tube drainage is only 70cc in the last 24 hours. Exam Narrative Exam Narrative: Gen: NAD, normal respiratory effort, well-nourished HENT: PERRL, nasal turbinates normal without erythema or inflammation, moist oral mucosa, Mallampati 2, No LAD or JVD Chest: No respiratory distress, normal appearance of chest, chest tube in place and well functioning. Right sided crackles, left lung clear. Heart: regular rate and rhythym, no murmurs, rubs or gallops Abdomen: Non-distended, soft, non tender Extremities: No clubbing, + edema, no cyanosis or rashes Neuro: AAOx3 , non focal Psych: cooperative, appropriate mental affect Objective Last Vital Signs Temp 36.7 C 06/09/22 06:22 Pulse 77 06/09/22 06:22 Resp 18 06/09/22 06:22 BP 111/70 06/09/22 06:22 Pulse Ox 94 06/09/22 06:22 Laboratory Results - last 24 hr 06/08/22 06:37 Sodium 139 Potassium 3.9 Chloride 103 Carbon Dioxide 25.7 Anion Gap 10.3 BUN 31 H Creatinine 1.6 H Est GFR (CKD-EPI 2020) 46.06 Glucose 197 H Calcium 8.9 Results Medications Medications: Active Medications Generic Name Dose Route Start Last Admin Trade Name Freq PRN Reason Stop Dose Admin Acetaminophen 1,000 mg 06/03/22 16:20 Acetaminophen 500 Mg Tab PO Q6H PRN PRN Albuterol Sulfate 2 puff 06/03/22 07:44 06/08/22 12:41 Albuterol Hfa 8 Gm 60 Puff Inh IH 2 puffs QID PRN PRN Administration Shortness of Breath Apixaban 5 mg 06/05/22 20:00 06/08/22 19:39 Apixaban 5 Mg Tab PO 5 mg BID TAMARA Administration Aspirin 81 mg 06/03/22 08:30 06/08/22 08:33 Aspirin E.C. 81 Mg Tabec PO 81 mg DAILY TAMARA Administration Atorvastatin Calcium 80 mg 06/03/22 21:15 06/08/22 19:39 Atorvastatin 40 Mg Tab PO 80 mg QPM TAMARA Administration Benzocaine/Menthol 5 each 06/08/22 10:22 Benzocaine/Menthol Lozg 18/Box SUC Q4H PRN PRN Cyanocobalamin 1,000 mcg 06/05/22 08:30 06/08/22 08:33 Cyanocobalamin 500 Mcg Tab PO 1,000 mcg DAILY TAMARA Administration Device 1 each 06/02/22 21:00 Inhaler, Assist Device MC DIRECTED TAMARA Dextrose 0 gm 06/02/22 20:11 Glucose Oral Gel 15 Gm/37.5 Gm Tube PO DIRECTED PRN Dextrose/Water 0 gm 06/02/22 20:11 Dextrose 50%-Water 25 Gm/50 Ml Syr IVP DIRECTED PRN Diltiazem HCl 120 mg 06/06/22 08:30 06/08/22 08:33 Diltiazem Cd 120 Mg Capcr PO 120 mg DAILY [facility] Administration Dimethicone/Zinc Oxide 0 gm 06/02/22 20:11 Jairo Protect Cream 142 Gm Tube TP PRN PRN Furosemide 40 mg 06/08/22 08:30 06/08/22 08:32 Furosemide 40 Mg/4 Ml Vial IVP 40 mg DAILY [facility] Administration Ceftriaxone Sodium/Dextrose 1 gm in 50 mls @ 100 mls/hr 06/03/22 20:00 06/08/22 19:39 Rocephin IVPB 100 mls/hr Q24H [facility] Administration IV Miscellaneous Supplies 1 each 06/02/22 16:00 Iv Access IV DIRECTED [facility] Insulin Aspart 0 units 06/05/22 08:00 06/08/22 21:43 Insulin Aspart 300 Units/3 Ml Pen SC 1 units 0800,1200,1700,2200 [facility] Administration Protocol Metoprolol Succinate 100 mg 06/03/22 08:30 06/08/22 19:39 Metoprolol Cr 100 Mg Tabcr PO 100 mg BID TAMARA Administration Metoprolol Tartrate 2.5 mg 06/04/22 10:56 Metoprolol 5 Mg/5 Ml Vial IVP Q4H PRN PRN Sodium Chloride 0 ml 06/02/22 16:00 06/08/22 08:33 Normal Saline Flush 10 Ml Syr IVP 20 ml PRN PRN Administration Spironolactone 50 mg 06/06/22 08:30 06/08/22 08:33 Spironolactone 50 Mg Tab PO 50 mg DAILY TAMARA Administration Tiotropium [place]/Olodaterol 2 puff 06/03/22 08:30 06/08/22 08:32 Tiotropium/Olodaterol 10 Puff Inhaler IH 2 inh DAILY TAMARA Administration Allergies shellfish derived Allergy (Intermediate, Verified 06/02/22 15:58) Hives house dust Allergy (Mild, Verified 06/02/22 15:58) hay fever Allergy (Mild, Uncoded 06/02/22 15:58) runny nose and cough Labs 06/05/22 06:32 06/08/22 06:37 Labs: 06/05/22 16:40 Pleural Body Fluid Culture - Preliminary 06/05/22 16:40 Pleural Gram Stain - Final 06/05/22 16:40 Pleural Anaerobic Culture - Preliminary 06/02/22 16:40 Blood Blood Culture - Final NO GROWTH 120 HOURS 06/02/22 16:28 Blood Blood Culture - Final NO GROWTH 120 HOURS 06/02/22 22:30 Urine - Voided Urine Culture - Final Gram Positive Celi,Mixed 06/03/22 07:30 Nose MRSA Screen - Final Laboratory Tests Range/Units 06/02/22 06/02/22 06/02/22 16:25 16:28 16:28 WBC (4.4-10.8) 10^3/uL RBC (4.36-5.78) 10^6/uL Hgb (13.5-17.5) g/dL Hct (40.0-50.0) % MCV (80-95) fL MCH (27.0-33.0) pg MCHC (32.0-36.0) % RDW (11.8-14.1) % Plt Count (130-400) 10^3/uL MPV (8.0-11.0) fL Immature Gran % Neutrophils % Lymphocytes % Monocytes % Eosinophils % Basophils % Nucleated RBC % (0.0-0.3) % Absolute Neutrophils (1.2-6.7) 10^3/uL Absolute Lymphocytes (1.2-3.4) 10^3/uL Absolute Monocytes (0.1-0.8) 10^3/uL Absolute Eosinophils (0.0-0.7) 10^3/uL Absolute Basophils (0.0-0.2) 10^3/uL PT (9.3-11.0) sec INR (0.9-1.1) APTT (21.5-31.9) sec VBG Lactate (0.6-1.4) mmol/L 1.9 H Sodium (136-145) mmol/L 142 Potassium (3.5-5.1) mmol/L 4.4 Chloride (98-107) mmol/L 104 Carbon Dioxide (21.0-32.0) mmol/L 28.0 Anion Gap (3-11) mmol/L 10.0 BUN (7-18) mg/dL 31 H Creatinine (0.70-1.30) mg/dL 1.8 H Est GFR (CKD-EPI 2020) (mL/min/1.73m2) 39.99 Glucose (74-106) mg/dL 113 H Calcium (8.5-10.1) mg/dL 9.2 Magnesium (1.8-2.4) mg/dL 2.0 Total Bilirubin (0.2-1.0) mg/dL 1.1 H AST (15-37) U/L 28 ALT (16-63) U/L 94 H Alkaline Phosphatase (46-116) U/L 76 Lactate Dehydrogenase (85-227) U/L Troponin I (<or=60) ng/L < 50 C-Reactive Protein (0.0-0.3) mg/dL Total Protein (6.4-8.2) g/dL 7.6 Albumin (3.4-5.0) g/dL 3.2 L Procalcitonin ng/mL Urine Color (Yellow) Urine Clarity (Clear) Urine pH (5-8) Ur Specific [place] (1.005-1.025) Urine Protein (Negative) mg/dL Urine Ketones (Negative) mg/dL Urine Blood (Negative) Urine Nitrite (Negative) Urine Bilirubin (Negative) Urine Urobilinogen (Up to 0.2) mg/dL Ur Leukocyte Esterase (Negative) Urine Glucose (Negative) mg/dL Fluid Type Fluid Source Fluid Color Fluid Clarity Fluid WBC (0) uL Fld Polynuclear WBCs % % Fluid Mononuclear Cell % Fluid Glucose (See Note) mg/dL Fluid LDH U/L Vancomycin Trough (10.0-20.0) ug/mL COVID-19 Source Nasopharynx SARS-CoV-2 (PCR) (Negative) Negative Influenza Type A (PCR) (Negative) Negative Influenza Type B (PCR) (Negative) Negative RSV (PCR) (Negative) Negative Path Cons Comment Range/Units 06/02/22 06/02/22 06/02/22 16:28 16:40 19:55 WBC (4.4-10.8) 10^3/uL 8.16 RBC (4.36-5.78) 10^6/uL 3.84 L Hgb (13.5-17.5) g/dL 11.1 L Hct (40.0-50.0) % 36.4 L MCV (80-95) fL 95 MCH (27.0-33.0) pg 28.9 MCHC (32.0-36.0) % 30.5 L RDW (11.8-14.1) % 15.9 H Plt Count (130-400) 10^3/uL 360 MPV (8.0-11.0) fL 8.8 Immature Gran % 0.4 Neutrophils % 77.3 Lymphocytes % 10.7 Monocytes % 8.5 Eosinophils % 2.1 Basophils % 1.0 Nucleated RBC % (0.0-0.3) % 0.0 Absolute Neutrophils (1.2-6.7) 10^3/uL 6.32 Absolute Lymphocytes (1.2-3.4) 10^3/uL 0.87 L Absolute Monocytes (0.1-0.8) 10^3/uL 0.69 Absolute Eosinophils (0.0-0.7) 10^3/uL 0.17 Absolute Basophils (0.0-0.2) 10^3/uL 0.08 PT (9.3-11.0) sec 14.9 H INR (0.9-1.1) 1.5 H APTT (21.5-31.9) sec 26.5 VBG Lactate (0.6-1.4) mmol/L Sodium (136-145) mmol/L Potassium (3.5-5.1) mmol/L Chloride (98-107) mmol/L Carbon Dioxide (21.0-32.0) mmol/L Anion Gap (3-11) mmol/L BUN (7-18) mg/dL Creatinine (0.70-1.30) mg/dL Est GFR (CKD-EPI 2020) (mL/min/1.73m2) Glucose (74-106) mg/dL Calcium (8.5-10.1) mg/dL Magnesium (1.8-2.4) mg/dL Total Bilirubin (0.2-1.0) mg/dL AST (15-37) U/L ALT (16-63) U/L Alkaline Phosphatase (46-116) U/L Lactate Dehydrogenase (85-227) U/L Troponin I (<or=60) ng/L < 50 C-Reactive Protein (0.0-0.3) mg/dL Total Protein (6.4-8.2) g/dL Albumin (3.4-5.0) g/dL Procalcitonin ng/mL Urine Color (Yellow) Urine Clarity (Clear) Urine pH (5-8) Ur Specific [place] (1.005-1.025) Urine Protein (Negative) mg/dL Urine Ketones (Negative) mg/dL Urine Blood (Negative) Urine Nitrite (Negative) Urine Bilirubin (Negative) Urine Urobilinogen (Up to 0.2) mg/dL Ur Leukocyte Esterase (Negative) Urine Glucose (Negative) mg/dL Fluid Type Fluid Source Fluid Color Fluid Clarity Fluid WBC (0) uL Fld Polynuclear WBCs % % Fluid Mononuclear Cell % Fluid Glucose (See Note) mg/dL Fluid LDH U/L Vancomycin Trough (10.0-20.0) ug/mL COVID-19 Source SARS-CoV-2 (PCR) (Negative) Influenza Type A (PCR) (Negative) Influenza Type B (PCR) (Negative) RSV (PCR) (Negative) Path Cons Comment Range/Units 06/02/22 06/05/22 06/05/22 22:30 06:32 06:32 WBC (4.4-10.8) 10^3/uL RBC (4.36-5.78) 10^6/uL Hgb (13.5-17.5) g/dL Hct (40.0-50.0) % MCV (80-95) fL MCH (27.0-33.0) pg MCHC (32.0-36.0) % RDW (11.8-14.1) % Plt Count (130-400) 10^3/uL MPV (8.0-11.0) fL Immature Gran % Neutrophils % Lymphocytes % Monocytes % Eosinophils % Basophils % Nucleated RBC % (0.0-0.3) % Absolute Neutrophils (1.2-6.7) 10^3/uL Absolute Lymphocytes (1.2-3.4) 10^3/uL Absolute Monocytes (0.1-0.8) 10^3/uL Absolute Eosinophils (0.0-0.7) 10^3/uL Absolute Basophils (0.0-0.2) 10^3/uL PT (9.3-11.0) sec INR (0.9-1.1) APTT (21.5-31.9) sec VBG Lactate (0.6-1.4) mmol/L Sodium (136-145) mmol/L 138 Potassium (3.5-5.1) mmol/L 4.3 Chloride (98-107) mmol/L 105 Carbon Dioxide (21.0-32.0) mmol/L 23.5 Anion Gap (3-11) mmol/L 9.5 BUN (7-18) mg/dL 32 H Creatinine (0.70-1.30) mg/dL 1.6 H Est GFR (CKD-EPI 2020) (mL/min/1.73m2) 46.06 Glucose (74-106) mg/dL 145 H Calcium (8.5-10.1) mg/dL 8.9 Magnesium (1.8-2.4) mg/dL Total Bilirubin (0.2-1.0) mg/dL 1.0 AST (15-37) U/L 24 ALT (16-63) U/L 58 Alkaline Phosphatase (46-116) U/L 68 Lactate Dehydrogenase (85-227) U/L Troponin I (<or=60) ng/L C-Reactive Protein (0.0-0.3) mg/dL 1.52 H Total Protein (6.4-8.2) g/dL 7.0 Albumin (3.4-5.0) g/dL 2.9 L Procalcitonin ng/mL < 0.1 Urine Color (Yellow) Yellow Urine Clarity (Clear) Sl Cloudy Urine pH (5-8) 5.5 Ur Specific [place] (1.005-1.025) 1.025 Urine Protein (Negative) mg/dL Negative Urine Ketones (Negative) mg/dL Negative Urine Blood (Negative) Negative Urine Nitrite (Negative) Negative Urine Bilirubin (Negative) Negative Urine Urobilinogen (Up to 0.2) mg/dL 0.2 Ur Leukocyte Esterase (Negative) Negative Urine Glucose (Negative) mg/dL Negative Fluid Type Fluid Source Fluid Color Fluid Clarity Fluid WBC (0) uL Fld Polynuclear WBCs % % Fluid Mononuclear Cell % Fluid Glucose (See Note) mg/dL Fluid LDH U/L Vancomycin Trough (10.0-20.0) ug/mL COVID-19 Source SARS-CoV-2 (PCR) (Negative) Influenza Type A (PCR) (Negative) Influenza Type B (PCR) (Negative) RSV (PCR) (Negative) Path Cons Comment Range/Units 06/05/22 06/05/22 06/05/22 06:32 12:15 12:15 WBC (4.4-10.8) 10^3/uL 7.58 RBC (4.36-5.78) 10^6/uL 3.86 L Hgb (13.5-17.5) g/dL 11.3 L Hct (40.0-50.0) % 36.3 L MCV (80-95) fL 94 MCH (27.0-33.0) pg 29.3 MCHC (32.0-36.0) % 31.1 L RDW (11.8-14.1) % 16.3 H Plt Count (130-400) 10^3/uL 362 MPV (8.0-11.0) fL 9.1 Immature Gran % 0.3 Neutrophils % 72.3 Lymphocytes % 13.1 Monocytes % 10.7 Eosinophils % 2.8 Basophils % 0.8 Nucleated RBC % (0.0-0.3) % 0.0 Absolute Neutrophils (1.2-6.7) 10^3/uL 5.49 Absolute Lymphocytes (1.2-3.4) 10^3/uL 0.99 L Absolute Monocytes (0.1-0.8) 10^3/uL 0.81 H Absolute Eosinophils (0.0-0.7) 10^3/uL 0.21 Absolute Basophils (0.0-0.2) 10^3/uL 0.06 PT (9.3-11.0) sec INR (0.9-1.1) APTT (21.5-31.9) sec VBG Lactate (0.6-1.4) mmol/L Sodium (136-145) mmol/L Potassium (3.5-5.1) mmol/L Chloride (98-107) mmol/L Carbon Dioxide (21.0-32.0) mmol/L Anion Gap (3-11) mmol/L BUN (7-18) mg/dL Creatinine (0.70-1.30) mg/dL Est GFR (CKD-EPI 2020) (mL/min/1.73m2) Glucose (74-106) mg/dL Calcium (8.5-10.1) mg/dL Magnesium (1.8-2.4) mg/dL Total Bilirubin (0.2-1.0) mg/dL AST (15-37) U/L ALT (16-63) U/L Alkaline Phosphatase (46-116) U/L Lactate Dehydrogenase (85-227) U/L Troponin I (<or=60) ng/L C-Reactive Protein (0.0-0.3) mg/dL Total Protein (6.4-8.2) g/dL Albumin (3.4-5.0) g/dL Procalcitonin ng/mL Urine Color (Yellow) Urine Clarity (Clear) Urine pH (5-8) Ur Specific [place] (1.005-1.025) Urine Protein (Negative) mg/dL Urine Ketones (Negative) mg/dL Urine Blood (Negative) Urine Nitrite (Negative) Urine Bilirubin (Negative) Urine Urobilinogen (Up to 0.2) mg/dL Ur Leukocyte Esterase (Negative) Urine Glucose (Negative) mg/dL Fluid Type Fluid Source Pleural Fluid Color Yellow Fluid Clarity Clear Fluid WBC (0) uL 205 Fld Polynuclear WBCs % % 21 Fluid Mononuclear Cell % 79 Fluid Glucose (See Note) mg/dL 159 Fluid LDH U/L Vancomycin Trough (10.0-20.0) ug/mL COVID-19 Source SARS-CoV-2 (PCR) (Negative) Influenza Type A (PCR) (Negative) Influenza Type B (PCR) (Negative) RSV (PCR) (Negative) Path Cons Comment SEE COMMENT Range/Units 06/05/22 06/05/22 06/05/22 12:15 13:28 16:57 WBC (4.4-10.8) 10^3/uL RBC (4.36-5.78) 10^6/uL Hgb (13.5-17.5) g/dL Hct (40.0-50.0) % MCV (80-95) fL MCH (27.0-33.0) pg MCHC (32.0-36.0) % RDW (11.8-14.1) % Plt Count (130-400) 10^3/uL MPV (8.0-11.0) fL Immature Gran % Neutrophils % Lymphocytes % Monocytes % Eosinophils % Basophils % Nucleated RBC % (0.0-0.3) % Absolute Neutrophils (1.2-6.7) 10^3/uL Absolute Lymphocytes (1.2-3.4) 10^3/uL Absolute Monocytes (0.1-0.8) 10^3/uL Absolute Eosinophils (0.0-0.7) 10^3/uL Absolute Basophils (0.0-0.2) 10^3/uL PT (9.3-11.0) sec INR (0.9-1.1) APTT (21.5-31.9) sec VBG Lactate (0.6-1.4) mmol/L Sodium (136-145) mmol/L Potassium (3.5-5.1) mmol/L Chloride (98-107) mmol/L Carbon Dioxide (21.0-32.0) mmol/L Anion Gap (3-11) mmol/L BUN (7-18) mg/dL Creatinine (0.70-1.30) mg/dL Est GFR (CKD-EPI 2020) (mL/min/1.73m2) Glucose (74-106) mg/dL Calcium (8.5-10.1) mg/dL Magnesium (1.8-2.4) mg/dL Total Bilirubin (0.2-1.0) mg/dL AST (15-37) U/L ALT (16-63) U/L Alkaline Phosphatase (46-116) U/L Lactate Dehydrogenase (85-227) U/L 253 H Troponin I (<or=60) ng/L C-Reactive Protein (0.0-0.3) mg/dL Total Protein (6.4-8.2) g/dL 6.9 Albumin (3.4-5.0) g/dL Procalcitonin ng/mL Urine Color (Yellow) Urine Clarity (Clear) Urine pH (5-8) Ur Specific [place] (1.005-1.025) Urine Protein (Negative) mg/dL Urine Ketones (Negative) mg/dL Urine Blood (Negative) Urine Nitrite (Negative) Urine Bilirubin (Negative) Urine Urobilinogen (Up to 0.2) mg/dL Ur Leukocyte Esterase (Negative) Urine Glucose (Negative) mg/dL Fluid Type Pleural Fluid Fluid Source Fluid Color Fluid Clarity Fluid WBC (0) uL Fld Polynuclear WBCs % % Fluid Mononuclear Cell % Fluid Glucose (See Note) mg/dL Fluid LDH U/L 197 Vancomycin Trough (10.0-20.0) ug/mL 14.7 COVID-19 Source SARS-CoV-2 (PCR) (Negative) Influenza Type A (PCR) (Negative) Influenza Type B (PCR) (Negative) RSV (PCR) (Negative) Path Cons Comment Range/Units 06/06/22 06/07/22 06/08/22 05:58 07:12 06:37 WBC (4.4-10.8) 10^3/uL RBC (4.36-5.78) 10^6/uL Hgb (13.5-17.5) g/dL Hct (40.0-50.0) % MCV (80-95) fL MCH (27.0-33.0) pg MCHC (32.0-36.0) % RDW (11.8-14.1) % Plt Count (130-400) 10^3/uL MPV (8.0-11.0) fL Immature Gran % Neutrophils % Lymphocytes % Monocytes % Eosinophils % Basophils % Nucleated RBC % (0.0-0.3) % Absolute Neutrophils (1.2-6.7) 10^3/uL Absolute Lymphocytes (1.2-3.4) 10^3/uL Absolute Monocytes (0.1-0.8) 10^3/uL Absolute Eosinophils (0.0-0.7) 10^3/uL Absolute Basophils (0.0-0.2) 10^3/uL PT (9.3-11.0) sec INR (0.9-1.1) APTT (21.5-31.9) sec VBG Lactate (0.6-1.4) mmol/L Sodium (136-145) mmol/L 135 L 139 139 Potassium (3.5-5.1) mmol/L 3.8 4.2 3.9 Chloride (98-107) mmol/L 101 103 103 Carbon Dioxide (21.0-32.0) mmol/L 25.7 28.5 25.7 Anion Gap (3-11) mmol/L 8.3 7.5 10.3 BUN (7-18) mg/dL 37 H 34 H 31 H Creatinine (0.70-1.30) mg/dL 1.9 H 1.8 H 1.6 H Est GFR (CKD-EPI 2020) (mL/min/1.73m2) 37.48 39.99 46.06 Glucose (74-106) mg/dL 129 H 152 H 197 H Calcium (8.5-10.1) mg/dL 8.8 8.8 8.9 Magnesium (1.8-2.4) mg/dL Total Bilirubin (0.2-1.0) mg/dL AST (15-37) U/L ALT (16-63) U/L Alkaline Phosphatase (46-116) U/L Lactate Dehydrogenase (85-227) U/L Troponin I (<or=60) ng/L C-Reactive Protein (0.0-0.3) mg/dL Total Protein (6.4-8.2) g/dL Albumin (3.4-5.0) g/dL Procalcitonin ng/mL Urine Color (Yellow) Urine Clarity (Clear) Urine pH (5-8) Ur Specific [place] (1.005-1.025) Urine Protein (Negative) mg/dL Urine Ketones (Negative) mg/dL Urine Blood (Negative) Urine Nitrite (Negative) Urine Bilirubin (Negative) Urine Urobilinogen (Up to 0.2) mg/dL Ur Leukocyte Esterase (Negative) Urine Glucose (Negative) mg/dL Fluid Type Fluid Source Fluid Color Fluid Clarity Fluid WBC (0) uL Fld Polynuclear WBCs % % Fluid Mononuclear Cell % Fluid Glucose (See Note) mg/dL Fluid LDH U/L Vancomycin Trough (10.0-20.0) ug/mL COVID-19 Source SARS-CoV-2 (PCR) (Negative) Influenza Type A (PCR) (Negative) Influenza Type B (PCR) (Negative) RSV (PCR) (Negative) Path Cons Comment
[2022-06-09] MEDS: dilTIAZem CD 120 MG CAPCR PO (09:05)
[2022-06-09] MEDS: Furosemide 40 MG/4 ML VIAL IVP (09:06)
[2022-06-09] MEDS: Metoprolol CR 100 MG TABCR PO ×2 (09:06→19:52)
[2022-06-09] MEDS: Cyanocobalamin 500 MCG TAB 1000 MCG PO (09:06)
[2022-06-09] MEDS: Spironolactone 50 MG TAB PO (09:06)
[2022-06-09] MEDS: Aspirin E.C. 81 MG TABEC PO (09:06)
[2022-06-09] MEDS: Apixaban 5 MG TAB PO ×2 (09:06→19:52)
[2022-06-09] MEDS: Normal Saline Flush 10 ML SYR IVP (09:06)
[2022-06-09] MEDS: Tiotropium/Olodaterol 10 PUFF INHALER 2 PUFF IH (09:09)
[2022-06-09 09:13] LABS: Cyclic Citrullinated Peptide <2.5 U/mL (<5.0)
[2022-06-09] MEDS: Insulin Aspart 300 UNITS/3 ML PEN SC ×3 (12:03→21:40)
[2022-06-09 14:07] LABS: TB Interpretation Negative (Negative)
--- NOTE | 2022-06-09 14:29 | PT.INNT ---
Date of service: 06/09/22 Time of Service: 14:29 PT Notes Visit Reasons: Pleural Effusion 06/09/2022 Patient refused PT today due to extreme fatigue, causing him to feel weak and unable to participate. Will attempt to resume PT services tomorrow morning.
[2022-06-09] MEDS: Albuterol HFA 8 GM 60 PUFF INH IH (15:48)
[2022-06-09 16:34] LABS: Leukemia/Lymphoma by FC (Blood (See below)
--- NOTE | 2022-06-09 16:39 | PDOC.CMPRO ---
- If Service Date Differs Date of service: 06/09/22 Time of Service: 16:39 Care Management Progress Note S/O: Mejia was sleeping when CM attempted to meet with him. Per report, his chest tube may be removed today. He remains on antibiotics, which may be changed to oral abx for the remainder of the course. CM will continue to follow. A: Demetrio is a 71 year old male admitted to [facility] on 06/02/22 for a pleural effusion. P: Mejia went to [facility] for a down and back IR drainage procedure for his pleural effusion. He will likely return home once medically cleared, with a resumption of RN, PT. CM sent a referral to [employer] for insurance support. He will follow up with his PCP, pulmonology, and his discharge plan of care. CM will continue to follow and support discharge needs..
--- NOTE | 2022-06-09 17:36 | PGE_ITS ---
Date of Service Date of service: 06/09/22 Time of Service: 17:36 Assessment and Plan Assessment and plan (1) Loculated pleural effusion: Status: Acute Assessment and plan: s/p placement of pleural catheter. His gram stain of pleural fluid was negative for bacteria. culture is no growth today. Pleural fluid cell count is mostly mononuclear rather than poly's. LDH and protein are pending. Cont iv lasix; now only daily. Have been considering Entresto and Jardiance. Given soft BP readings, will not start Entresto now but will initiate Jardiance. Dr Burger, pulmonary med following. Planning to d/c catheter today. (2) Atrial fibrillation: Status: Chronic Assessment and plan: Cont apixiban. HR better controlled with addition of diltiazem; now on dilt CD 120mg daily. Telemetry. 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 patient is currently on lasix and metoprolol. Initiating Jardiance. Echocardiogram on 06/04/22: Suboptimal quality. LV normal size. LV EF of 35%. Moderate global hypokinesis. Mod mitral regurg. Mild to mod tricuspid regurg. (4) CKD (chronic kidney disease): Status: Acute Assessment and plan: currently at BUN 31 and creatinine of 1.6 which appears to be his new baseline over the past year Qualifiers: Chronic kidney disease stage: stage 3 (moderate) Qualified Code(s): N18.3 - Chronic kidney disease, stage 3 (moderate) (5) COPD (chronic obstructive pulmonary disease) with emphysema: Status: Chronic Assessment and plan: Stable. His Stiolto was resumed per Dr. Burger, continue prn albuterol Qualifiers: Emphysema type: unspecified Qualified Code(s): J43.9 - Emphysema, unspecified (6) Type 2 diabetes mellitus: Status: Chronic Assessment and plan: holding glipizide and metformin; treating w/ SSI insulin sensitive scale. Adequately controlled in general. Monitor. Hgb A1c of 6.1. 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 Nurse was present. When he regained consciousness he was A&O x 3. He reports this happens to him periodically. He always since while urinating. Later, another nursing accompanied him to the commode and she noted he was consistently stifling a cough and in effect doing a valsalva maneuver. This is likely the etiology of his syncopal episodes. He is encourage to cough freely. He states he doesn't consciously do this and today avoided doing so when going to and while on the commode. Qualifiers: Syncope type: unspecified Qualified Code(s): R55 - Syncope and collapse Subjective Subjective Patient reports: no new complaints, feels better and afebrile; denies nausea or vomiting Exam Narrative Exam Narrative: Gen: sitting up in his chair. Pleasant and conversant. NAD. CV: Irreg Irreg. Lungs: Diminished breath sounds but improved air movement. Nonlabored breathing. Abdomen: obese, soft, nontender Legs: Compression wraps in place. toes warm and dry Psych: affect appropriate. Objective Last Vital Signs Temp 36.2 C L 06/09/22 15:45 Pulse 77 06/09/22 15:45 Resp 16 06/09/22 15:45 BP 99/64 L 06/09/22 15:45 Pulse Ox 96 06/09/22 15:45 Laboratory Results - last 24 hr 06/05/22 06/06/22 06/06/22 12:15 09:42 09:42 Fluid Type Pleural Fluid Fluid Total Protein 2.7 Rheumatoid Factor <8.6 Cyclic Citrull Peptide Lymph/Leukemia Panel (See below) TB Test Ag - Nil 1 0.00 TB Test Ag - Nil 2 0.00 TB Test (QFT) Interp Negative 06/06/22 09:42 Fluid Type Fluid Total Protein Rheumatoid Factor Cyclic Citrull Peptide <2.5 Lymph/Leukemia Panel TB Test Ag - Nil 1 TB Test Ag - Nil 2 TB Test (QFT) Interp Time Spent with Patient Time Spent with Patient: 25-34 minutes Time was spent: preparing to see the patient(eg.review tests), ordering medications,tests, procedures, referring, communicating with other health career technical counselor and indepentently interpreting results
[2022-06-09] MEDS: Amoxicillin 875/Clav. 125 TAB PO (19:52)
[2022-06-09] MEDS: Atorvastatin 40 MG TAB 80 MG PO (19:52)
[2022-06-10] VITALS (8 sets, daily range): BP systolic 103–134; BP diastolic 35–86; PULSE 74–104; RESP 16–20; TEMP 36.1–37.2; O2SAT 96–99
--- NOTE | 2022-06-10 06:52 | W.PULMPROG ---
Assessment and Plan Assessment and plan (1) COPD (chronic obstructive pulmonary disease) with emphysema: Status: Chronic Qualifiers: Emphysema type: unspecified Qualified Code(s): J43.9 - Emphysema, unspecified (2) CHF (congestive heart failure): Status: Acute (3) Loculated pleural effusion: Status: Acute Assessment and plan: This is a 71 year old male admitted for right sided loculated pleural effusion s/p IR pigtail placement. The fluid was found to be exudative and lymphocyte predominant. This is a similar profile to September 2021. With a few re-occurances of this fluid I do worry about a potential malignant cause and have [place] a [place] [facility] [place] consideration of the pleural biopsy. The other potential causes of a lymphocyte exudative effusion (TB, rheumatoid) have had negative serological testing. His peripheral flow cytometry is also negative. I recommended removal of the chest tube yesterday but this did not happen. He does need the chest tube removed today. Loculated Pleural Effusion with lymphocyte predominance - s/p pigtail - again, recommend removal - RF, anti-CCP, flow cytometry, Quanteferon negative - continue antibiotics for a 10 day course- can change ceftriaxone to PO Augmentin for remainder of course - referral [place] [facility] [place] for consideration of a pleural biopsy made COPD - Maintain SpO2 >88% - continue Stiolto 2 puff daily - not a retainer CHF - maintain euvolemia - lasix per medicine recommendations General Date Of Service Date of service: 06/10/22 Time of Service: 06:52 Reason for Consult: Pleural Effusion/Respiratory decompensation Subjective 24 Hour Events: Chest tube output 140cc in 24 hours. Note Note: Mejia is doing well. Unfortunately, he did not have the chest tube removed yesterday. Exam Narrative Exam Narrative: Gen: NAD, normal respiratory effort, well-nourished HENT: PERRL, nasal turbinates normal without erythema or inflammation, moist oral mucosa, Mallampati 2, No LAD or JVD Chest: No respiratory distress, normal appearance of chest, chest tube in place and well functioning. Right sided crackles, left lung clear. Heart: regular rate and rhythym, no murmurs, rubs or gallops Abdomen: Non-distended, soft, non tender Extremities: No clubbing, + edema, no cyanosis or rashes Neuro: AAOx3 , non focal Psych: cooperative, appropriate mental affect Objective Last Vital Signs Temp 36.7 C 06/10/22 03:48 Pulse 78 06/10/22 03:48 Resp 16 06/10/22 03:48 BP 130/35 L 06/10/22 03:48 Pulse Ox 96 06/10/22 03:48 Laboratory Results - last 24 hr 06/05/22 06/06/22 06/06/22 12:15 09:42 09:42 Fluid Type Pleural Fluid Fluid Total Protein 2.7 Rheumatoid Factor <8.6 Cyclic Citrull Peptide Lymph/Leukemia Panel (See below) TB Test Ag - Nil 1 0.00 TB Test Ag - Nil 2 0.00 TB Test (QFT) Interp Negative 06/06/22 09:42 Fluid Type Fluid Total Protein Rheumatoid Factor Cyclic Citrull Peptide <2.5 Lymph/Leukemia Panel TB Test Ag - Nil 1 TB Test Ag - Nil 2 TB Test (QFT) Interp Results Medications Medications: Active Medications Generic Name Dose Route Start Last Admin Trade Name Freq PRN Reason Stop Dose Admin Acetaminophen 1,000 mg 06/03/22 16:20 Acetaminophen 500 Mg Tab PO Q6H PRN PRN Albuterol Sulfate 2 puff 06/03/22 07:44 06/09/22 15:48 Albuterol Hfa 8 Gm 60 Puff Inh IH 2 puffs QID PRN PRN Administration Shortness of Breath Amoxicillin/Clavulanate Potassium 1 tab 06/09/22 20:00 06/09/22 19:52 Amoxicillin 875/Clav. 125 Tab PO 1 tab BID TAMARA Administration Apixaban 5 mg 06/05/22 20:00 06/09/22 19:52 Apixaban 5 Mg Tab PO 5 mg BID TAMARA Administration Aspirin 81 mg 06/03/22 08:30 06/09/22 09:06 Aspirin E.C. 81 Mg Tabec PO 81 mg DAILY TAMARA Administration Atorvastatin Calcium 80 mg 06/03/22 21:15 06/09/22 19:52 Atorvastatin 40 Mg Tab PO 80 mg QPM TAMARA Administration Benzocaine/Menthol 5 each 06/08/22 10:22 Benzocaine/Menthol Lozg 18/Box SUC Q4H PRN PRN Cyanocobalamin 1,000 mcg 06/05/22 08:30 06/09/22 09:06 Cyanocobalamin 500 Mcg Tab PO 1,000 mcg DAILY TAMARA Administration Device 1 each 06/02/22 21:00 Inhaler, Assist Device MC DIRECTED [facility] Dextrose 0 gm 06/02/22 20:11 Glucose Oral Gel 15 Gm/37.5 Gm Tube PO DIRECTED PRN Dextrose/Water 0 gm 06/02/22 20:11 Dextrose 50%-Water 25 Gm/50 Ml Syr IVP DIRECTED PRN Diltiazem HCl 120 mg 06/06/22 08:30 06/09/22 09:05 Diltiazem Cd 120 Mg Capcr PO 120 mg DAILY [facility] Administration Dimethicone/Zinc Oxide 0 gm 06/02/22 20:11 Jairo Protect Cream 142 Gm Tube TP PRN PRN Empagliflozin 10 mg 06/10/22 08:30 Empaglifozin 10 Mg Tab PO QAM [facility] Furosemide 40 mg 06/08/22 08:30 06/09/22 09:06 Furosemide 40 Mg/4 Ml Vial IVP 40 mg DAILY TAMARA Administration IV Miscellaneous Supplies 1 each 06/02/22 16:00 Iv Access IV DIRECTED [facility] Insulin Aspart 0 units 06/05/22 08:00 06/09/22 21:40 Insulin Aspart 300 Units/3 Ml Pen SC 2 units 0800,1200,1700,2200 [facility] Administration Protocol Metoprolol Succinate 100 mg 06/03/22 08:30 06/09/22 19:52 Metoprolol Cr 100 Mg Tabcr PO 100 mg BID TAMARA Administration Metoprolol Tartrate 2.5 mg 06/04/22 10:56 Metoprolol 5 Mg/5 Ml Vial IVP Q4H PRN PRN Sodium Chloride 0 ml 06/02/22 16:00 06/09/22 09:06 Normal Saline Flush 10 Ml Syr IVP 10 ml PRN PRN Administration Spironolactone 50 mg 06/06/22 08:30 06/09/22 09:06 Spironolactone 50 Mg Tab PO 50 mg DAILY TAMARA Administration Tiotropium [place]/Olodaterol 2 puff 06/03/22 08:30 06/09/22 09:09 Tiotropium/Olodaterol 10 Puff Inhaler IH 2 inh DAILY TAMARA Administration Allergies shellfish derived Allergy (Intermediate, Verified 06/02/22 15:58) Hives house dust Allergy (Mild, Verified 06/02/22 15:58) hay fever Allergy (Mild, Uncoded 06/02/22 15:58) runny nose and cough Labs 06/05/22 06:32 06/08/22 06:37 Labs: 06/05/22 16:40 Pleural Body Fluid Culture - Preliminary 06/05/22 16:40 Pleural Gram Stain - Final 06/05/22 16:40 Pleural Anaerobic Culture - Preliminary 06/02/22 16:40 Blood Blood Culture - Final NO GROWTH 120 HOURS 06/02/22 16:28 Blood Blood Culture - Final NO GROWTH 120 HOURS 06/02/22 22:30 Urine - Voided Urine Culture - Final Gram Positive Celi,Mixed 06/03/22 07:30 Nose MRSA Screen - Final Laboratory Tests Range/Units 06/02/22 06/02/22 06/02/22 16:25 16:28 16:28 WBC (4.4-10.8) 10^3/uL RBC (4.36-5.78) 10^6/uL Hgb (13.5-17.5) g/dL Hct (40.0-50.0) % MCV (80-95) fL MCH (27.0-33.0) pg MCHC (32.0-36.0) % RDW (11.8-14.1) % Plt Count (130-400) 10^3/uL MPV (8.0-11.0) fL Immature Gran % Neutrophils % Lymphocytes % Monocytes % Eosinophils % Basophils % Nucleated RBC % (0.0-0.3) % Absolute Neutrophils (1.2-6.7) 10^3/uL Absolute Lymphocytes (1.2-3.4) 10^3/uL Absolute Monocytes (0.1-0.8) 10^3/uL Absolute Eosinophils (0.0-0.7) 10^3/uL Absolute Basophils (0.0-0.2) 10^3/uL PT (9.3-11.0) sec INR (0.9-1.1) APTT (21.5-31.9) sec VBG Lactate (0.6-1.4) mmol/L 1.9 H Sodium (136-145) mmol/L 142 Potassium (3.5-5.1) mmol/L 4.4 Chloride (98-107) mmol/L 104 Carbon Dioxide (21.0-32.0) mmol/L 28.0 Anion Gap (3-11) mmol/L 10.0 BUN (7-18) mg/dL 31 H Creatinine (0.70-1.30) mg/dL 1.8 H Est GFR (CKD-EPI 2020) (mL/min/1.73m2) 39.99 Glucose (74-106) mg/dL 113 H Calcium (8.5-10.1) mg/dL 9.2 Magnesium (1.8-2.4) mg/dL 2.0 Total Bilirubin (0.2-1.0) mg/dL 1.1 H AST (15-37) U/L 28 ALT (16-63) U/L 94 H Alkaline Phosphatase (46-116) U/L 76 Lactate Dehydrogenase (85-227) U/L Troponin I (<or=60) ng/L < 50 C-Reactive Protein (0.0-0.3) mg/dL Total Protein (6.4-8.2) g/dL 7.6 Albumin (3.4-5.0) g/dL 3.2 L Procalcitonin ng/mL Urine Color (Yellow) Urine Clarity (Clear) Urine pH (5-8) Ur Specific [place] (1.005-1.025) Urine Protein (Negative) mg/dL Urine Ketones (Negative) mg/dL Urine Blood (Negative) Urine Nitrite (Negative) Urine Bilirubin (Negative) Urine Urobilinogen (Up to 0.2) mg/dL Ur Leukocyte Esterase (Negative) Urine Glucose (Negative) mg/dL Fluid Type Fluid Source Fluid Color Fluid Clarity Fluid WBC (0) uL Fld Polynuclear WBCs % % Fluid Mononuclear Cell % Fluid Glucose (See Note) mg/dL Fluid Total Protein g/dL Fluid LDH U/L Vancomycin Trough (10.0-20.0) ug/mL Rheumatoid Factor (<12.0) IU/mL Cyclic Citrull Peptide (<5.0) U/mL Lymph/Leukemia Panel COVID-19 Source Nasopharynx SARS-CoV-2 (PCR) (Negative) Negative Influenza Type A (PCR) (Negative) Negative Influenza Type B (PCR) (Negative) Negative RSV (PCR) (Negative) Negative TB Test Ag - Nil 1 IU/mL TB Test Ag - Nil 2 IU/mL TB Test (QFT) Interp (Negative) Path Cons Comment Range/Units 06/02/22 06/02/22 06/02/22 16:28 16:40 19:55 WBC (4.4-10.8) 10^3/uL 8.16 RBC (4.36-5.78) 10^6/uL 3.84 L Hgb (13.5-17.5) g/dL 11.1 L Hct (40.0-50.0) % 36.4 L MCV (80-95) fL 95 MCH (27.0-33.0) pg 28.9 MCHC (32.0-36.0) % 30.5 L RDW (11.8-14.1) % 15.9 H Plt Count (130-400) 10^3/uL 360 MPV (8.0-11.0) fL 8.8 Immature Gran % 0.4 Neutrophils % 77.3 Lymphocytes % 10.7 Monocytes % 8.5 Eosinophils % 2.1 Basophils % 1.0 Nucleated RBC % (0.0-0.3) % 0.0 Absolute Neutrophils (1.2-6.7) 10^3/uL 6.32 Absolute Lymphocytes (1.2-3.4) 10^3/uL 0.87 L Absolute Monocytes (0.1-0.8) 10^3/uL 0.69 Absolute Eosinophils (0.0-0.7) 10^3/uL 0.17 Absolute Basophils (0.0-0.2) 10^3/uL 0.08 PT (9.3-11.0) sec 14.9 H INR (0.9-1.1) 1.5 H APTT (21.5-31.9) sec 26.5 VBG Lactate (0.6-1.4) mmol/L Sodium (136-145) mmol/L Potassium (3.5-5.1) mmol/L Chloride (98-107) mmol/L Carbon Dioxide (21.0-32.0) mmol/L Anion Gap (3-11) mmol/L BUN (7-18) mg/dL Creatinine (0.70-1.30) mg/dL Est GFR (CKD-EPI 2020) (mL/min/1.73m2) Glucose (74-106) mg/dL Calcium (8.5-10.1) mg/dL Magnesium (1.8-2.4) mg/dL Total Bilirubin (0.2-1.0) mg/dL AST (15-37) U/L ALT (16-63) U/L Alkaline Phosphatase (46-116) U/L Lactate Dehydrogenase (85-227) U/L Troponin I (<or=60) ng/L < 50 C-Reactive Protein (0.0-0.3) mg/dL Total Protein (6.4-8.2) g/dL Albumin (3.4-5.0) g/dL Procalcitonin ng/mL Urine Color (Yellow) Urine Clarity (Clear) Urine pH (5-8) Ur Specific [place] (1.005-1.025) Urine Protein (Negative) mg/dL Urine Ketones (Negative) mg/dL Urine Blood (Negative) Urine Nitrite (Negative) Urine Bilirubin (Negative) Urine Urobilinogen (Up to 0.2) mg/dL Ur Leukocyte Esterase (Negative) Urine Glucose (Negative) mg/dL Fluid Type Fluid Source Fluid Color Fluid Clarity Fluid WBC (0) uL Fld Polynuclear WBCs % % Fluid Mononuclear Cell % Fluid Glucose (See Note) mg/dL Fluid Total Protein g/dL Fluid LDH U/L Vancomycin Trough (10.0-20.0) ug/mL Rheumatoid Factor (<12.0) IU/mL Cyclic Citrull Peptide (<5.0) U/mL Lymph/Leukemia Panel COVID-19 Source SARS-CoV-2 (PCR) (Negative) Influenza Type A (PCR) (Negative) Influenza Type B (PCR) (Negative) RSV (PCR) (Negative) TB Test Ag - Nil 1 IU/mL TB Test Ag - Nil 2 IU/mL TB Test (QFT) Interp (Negative) Path Cons Comment Range/Units 06/02/22 06/05/22 06/05/22 22:30 06:32 06:32 WBC (4.4-10.8) 10^3/uL RBC (4.36-5.78) 10^6/uL Hgb (13.5-17.5) g/dL Hct (40.0-50.0) % MCV (80-95) fL MCH (27.0-33.0) pg MCHC (32.0-36.0) % RDW (11.8-14.1) % Plt Count (130-400) 10^3/uL MPV (8.0-11.0) fL Immature Gran % Neutrophils % Lymphocytes % Monocytes % Eosinophils % Basophils % Nucleated RBC % (0.0-0.3) % Absolute Neutrophils (1.2-6.7) 10^3/uL Absolute Lymphocytes (1.2-3.4) 10^3/uL Absolute Monocytes (0.1-0.8) 10^3/uL Absolute Eosinophils (0.0-0.7) 10^3/uL Absolute Basophils (0.0-0.2) 10^3/uL PT (9.3-11.0) sec INR (0.9-1.1) APTT (21.5-31.9) sec VBG Lactate (0.6-1.4) mmol/L Sodium (136-145) mmol/L 138 Potassium (3.5-5.1) mmol/L 4.3 Chloride (98-107) mmol/L 105 Carbon Dioxide (21.0-32.0) mmol/L 23.5 Anion Gap (3-11) mmol/L 9.5 BUN (7-18) mg/dL 32 H Creatinine (0.70-1.30) mg/dL 1.6 H Est GFR (CKD-EPI 2020) (mL/min/1.73m2) 46.06 Glucose (74-106) mg/dL 145 H Calcium (8.5-10.1) mg/dL 8.9 Magnesium (1.8-2.4) mg/dL Total Bilirubin (0.2-1.0) mg/dL 1.0 AST (15-37) U/L 24 ALT (16-63) U/L 58 Alkaline Phosphatase (46-116) U/L 68 Lactate Dehydrogenase (85-227) U/L Troponin I (<or=60) ng/L C-Reactive Protein (0.0-0.3) mg/dL 1.52 H Total Protein (6.4-8.2) g/dL 7.0 Albumin (3.4-5.0) g/dL 2.9 L Procalcitonin ng/mL < 0.1 Urine Color (Yellow) Yellow Urine Clarity (Clear) Sl Cloudy Urine pH (5-8) 5.5 Ur Specific [place] (1.005-1.025) 1.025 Urine Protein (Negative) mg/dL Negative Urine Ketones (Negative) mg/dL Negative Urine Blood (Negative) Negative Urine Nitrite (Negative) Negative Urine Bilirubin (Negative) Negative Urine Urobilinogen (Up to 0.2) mg/dL 0.2 Ur Leukocyte Esterase (Negative) Negative Urine Glucose (Negative) mg/dL Negative Fluid Type Fluid Source Fluid Color Fluid Clarity Fluid WBC (0) uL Fld Polynuclear WBCs % % Fluid Mononuclear Cell % Fluid Glucose (See Note) mg/dL Fluid Total Protein g/dL Fluid LDH U/L Vancomycin Trough (10.0-20.0) ug/mL Rheumatoid Factor (<12.0) IU/mL Cyclic Citrull Peptide (<5.0) U/mL Lymph/Leukemia Panel COVID-19 Source SARS-CoV-2 (PCR) (Negative) Influenza Type A (PCR) (Negative) Influenza Type B (PCR) (Negative) RSV (PCR) (Negative) TB Test Ag - Nil 1 IU/mL TB Test Ag - Nil 2 IU/mL TB Test (QFT) Interp (Negative) Path Cons Comment Range/Units 06/05/22 06/05/22 06/05/22 06:32 12:15 12:15 WBC (4.4-10.8) 10^3/uL 7.58 RBC (4.36-5.78) 10^6/uL 3.86 L Hgb (13.5-17.5) g/dL 11.3 L Hct (40.0-50.0) % 36.3 L MCV (80-95) fL 94 MCH (27.0-33.0) pg 29.3 MCHC (32.0-36.0) % 31.1 L RDW (11.8-14.1) % 16.3 H Plt Count (130-400) 10^3/uL 362 MPV (8.0-11.0) fL 9.1 Immature Gran % 0.3 Neutrophils % 72.3 Lymphocytes % 13.1 Monocytes % 10.7 Eosinophils % 2.8 Basophils % 0.8 Nucleated RBC % (0.0-0.3) % 0.0 Absolute Neutrophils (1.2-6.7) 10^3/uL 5.49 Absolute Lymphocytes (1.2-3.4) 10^3/uL 0.99 L Absolute Monocytes (0.1-0.8) 10^3/uL 0.81 H Absolute Eosinophils (0.0-0.7) 10^3/uL 0.21 Absolute Basophils (0.0-0.2) 10^3/uL 0.06 PT (9.3-11.0) sec INR (0.9-1.1) APTT (21.5-31.9) sec VBG Lactate (0.6-1.4) mmol/L Sodium (136-145) mmol/L Potassium (3.5-5.1) mmol/L Chloride (98-107) mmol/L Carbon Dioxide (21.0-32.0) mmol/L Anion Gap (3-11) mmol/L BUN (7-18) mg/dL Creatinine (0.70-1.30) mg/dL Est GFR (CKD-EPI 2020) (mL/min/1.73m2) Glucose (74-106) mg/dL Calcium (8.5-10.1) mg/dL Magnesium (1.8-2.4) mg/dL Total Bilirubin (0.2-1.0) mg/dL AST (15-37) U/L ALT (16-63) U/L Alkaline Phosphatase (46-116) U/L Lactate Dehydrogenase (85-227) U/L Troponin I (<or=60) ng/L C-Reactive Protein (0.0-0.3) mg/dL Total Protein (6.4-8.2) g/dL Albumin (3.4-5.0) g/dL Procalcitonin ng/mL Urine Color (Yellow) Urine Clarity (Clear) Urine pH (5-8) Ur Specific [place] (1.005-1.025) Urine Protein (Negative) mg/dL Urine Ketones (Negative) mg/dL Urine Blood (Negative) Urine Nitrite (Negative) Urine Bilirubin (Negative) Urine Urobilinogen (Up to 0.2) mg/dL Ur Leukocyte Esterase (Negative) Urine Glucose (Negative) mg/dL Fluid Type Pleural Fluid Fluid Source Fluid Color Fluid Clarity Fluid WBC (0) uL Fld Polynuclear WBCs % % Fluid Mononuclear Cell % Fluid Glucose (See Note) mg/dL 159 Fluid Total Protein g/dL 2.7 Fluid LDH U/L Vancomycin Trough (10.0-20.0) ug/mL Rheumatoid Factor (<12.0) IU/mL Cyclic Citrull Peptide (<5.0) U/mL Lymph/Leukemia Panel COVID-19 Source SARS-CoV-2 (PCR) (Negative) Influenza Type A (PCR) (Negative) Influenza Type B (PCR) (Negative) RSV (PCR) (Negative) TB Test Ag - Nil 1 IU/mL TB Test Ag - Nil 2 IU/mL TB Test (QFT) Interp (Negative) Path Cons Comment Range/Units 06/05/22 06/05/22 06/05/22 12:15 12:15 13:28 WBC (4.4-10.8) 10^3/uL RBC (4.36-5.78) 10^6/uL Hgb (13.5-17.5) g/dL Hct (40.0-50.0) % MCV (80-95) fL MCH (27.0-33.0) pg MCHC (32.0-36.0) % RDW (11.8-14.1) % Plt Count (130-400) 10^3/uL MPV (8.0-11.0) fL Immature Gran % Neutrophils % Lymphocytes % Monocytes % Eosinophils % Basophils % Nucleated RBC % (0.0-0.3) % Absolute Neutrophils (1.2-6.7) 10^3/uL Absolute Lymphocytes (1.2-3.4) 10^3/uL Absolute Monocytes (0.1-0.8) 10^3/uL Absolute Eosinophils (0.0-0.7) 10^3/uL Absolute Basophils (0.0-0.2) 10^3/uL PT (9.3-11.0) sec INR (0.9-1.1) APTT (21.5-31.9) sec VBG Lactate (0.6-1.4) mmol/L Sodium (136-145) mmol/L Potassium (3.5-5.1) mmol/L Chloride (98-107) mmol/L Carbon Dioxide (21.0-32.0) mmol/L Anion Gap (3-11) mmol/L BUN (7-18) mg/dL Creatinine (0.70-1.30) mg/dL Est GFR (CKD-EPI 2020) (mL/min/1.73m2) Glucose (74-106) mg/dL Calcium (8.5-10.1) mg/dL Magnesium (1.8-2.4) mg/dL Total Bilirubin (0.2-1.0) mg/dL AST (15-37) U/L ALT (16-63) U/L Alkaline Phosphatase (46-116) U/L Lactate Dehydrogenase (85-227) U/L 253 H Troponin I (<or=60) ng/L C-Reactive Protein (0.0-0.3) mg/dL Total Protein (6.4-8.2) g/dL 6.9 Albumin (3.4-5.0) g/dL Procalcitonin ng/mL Urine Color (Yellow) Urine Clarity (Clear) Urine pH (5-8) Ur Specific [place] (1.005-1.025) Urine Protein (Negative) mg/dL Urine Ketones (Negative) mg/dL Urine Blood (Negative) Urine Nitrite (Negative) Urine Bilirubin (Negative) Urine Urobilinogen (Up to 0.2) mg/dL Ur Leukocyte Esterase (Negative) Urine Glucose (Negative) mg/dL Fluid Type Pleural Fluid Fluid Source Pleural Fluid Color Yellow Fluid Clarity Clear Fluid WBC (0) uL 205 Fld Polynuclear WBCs % % 21 Fluid Mononuclear Cell % 79 Fluid Glucose (See Note) mg/dL Fluid Total Protein g/dL Fluid LDH U/L 197 Vancomycin Trough (10.0-20.0) ug/mL Rheumatoid Factor (<12.0) IU/mL Cyclic Citrull Peptide (<5.0) U/mL Lymph/Leukemia Panel COVID-19 Source SARS-CoV-2 (PCR) (Negative) Influenza Type A (PCR) (Negative) Influenza Type B (PCR) (Negative) RSV (PCR) (Negative) TB Test Ag - Nil 1 IU/mL TB Test Ag - Nil 2 IU/mL TB Test (QFT) Interp (Negative) Path Cons Comment SEE COMMENT Range/Units 06/05/22 06/06/22 06/06/22 16:57 05:58 09:42 WBC (4.4-10.8) 10^3/uL RBC (4.36-5.78) 10^6/uL Hgb (13.5-17.5) g/dL Hct (40.0-50.0) % MCV (80-95) fL MCH (27.0-33.0) pg MCHC (32.0-36.0) % RDW (11.8-14.1) % Plt Count (130-400) 10^3/uL MPV (8.0-11.0) fL Immature Gran % Neutrophils % Lymphocytes % Monocytes % Eosinophils % Basophils % Nucleated RBC % (0.0-0.3) % Absolute Neutrophils (1.2-6.7) 10^3/uL Absolute Lymphocytes (1.2-3.4) 10^3/uL Absolute Monocytes (0.1-0.8) 10^3/uL Absolute Eosinophils (0.0-0.7) 10^3/uL Absolute Basophils (0.0-0.2) 10^3/uL PT (9.3-11.0) sec INR (0.9-1.1) APTT (21.5-31.9) sec VBG Lactate (0.6-1.4) mmol/L Sodium (136-145) mmol/L 135 L Potassium (3.5-5.1) mmol/L 3.8 Chloride (98-107) mmol/L 101 Carbon Dioxide (21.0-32.0) mmol/L 25.7 Anion Gap (3-11) mmol/L 8.3 BUN (7-18) mg/dL 37 H Creatinine (0.70-1.30) mg/dL 1.9 H Est GFR (CKD-EPI 2020) (mL/min/1.73m2) 37.48 Glucose (74-106) mg/dL 129 H Calcium (8.5-10.1) mg/dL 8.8 Magnesium (1.8-2.4) mg/dL Total Bilirubin (0.2-1.0) mg/dL AST (15-37) U/L ALT (16-63) U/L Alkaline Phosphatase (46-116) U/L Lactate Dehydrogenase (85-227) U/L Troponin I (<or=60) ng/L C-Reactive Protein (0.0-0.3) mg/dL Total Protein (6.4-8.2) g/dL Albumin (3.4-5.0) g/dL Procalcitonin ng/mL Urine Color (Yellow) Urine Clarity (Clear) Urine pH (5-8) Ur Specific [place] (1.005-1.025) Urine Protein (Negative) mg/dL Urine Ketones (Negative) mg/dL Urine Blood (Negative) Urine Nitrite (Negative) Urine Bilirubin (Negative) Urine Urobilinogen (Up to 0.2) mg/dL Ur Leukocyte Esterase (Negative) Urine Glucose (Negative) mg/dL Fluid Type Fluid Source Fluid Color Fluid Clarity Fluid WBC (0) uL Fld Polynuclear WBCs % % Fluid Mononuclear Cell % Fluid Glucose (See Note) mg/dL Fluid Total Protein g/dL Fluid LDH U/L Vancomycin Trough (10.0-20.0) ug/mL 14.7 Rheumatoid Factor (<12.0) IU/mL Cyclic Citrull Peptide (<5.0) U/mL Lymph/Leukemia Panel COVID-19 Source SARS-CoV-2 (PCR) (Negative) Influenza Type A (PCR) (Negative) Influenza Type B (PCR) (Negative) RSV (PCR) (Negative) TB Test Ag - Nil 1 IU/mL 0.00 TB Test Ag - Nil 2 IU/mL 0.00 TB Test (QFT) Interp (Negative) Negative Path Cons Comment Range/Units 06/06/22 06/06/22 06/07/22 09:42 09:42 07:12 WBC (4.4-10.8) 10^3/uL RBC (4.36-5.78) 10^6/uL Hgb (13.5-17.5) g/dL Hct (40.0-50.0) % MCV (80-95) fL MCH (27.0-33.0) pg MCHC (32.0-36.0) % RDW (11.8-14.1) % Plt Count (130-400) 10^3/uL MPV (8.0-11.0) fL Immature Gran % Neutrophils % Lymphocytes % Monocytes % Eosinophils % Basophils % Nucleated RBC % (0.0-0.3) % Absolute Neutrophils (1.2-6.7) 10^3/uL Absolute Lymphocytes (1.2-3.4) 10^3/uL Absolute Monocytes (0.1-0.8) 10^3/uL Absolute Eosinophils (0.0-0.7) 10^3/uL Absolute Basophils (0.0-0.2) 10^3/uL PT (9.3-11.0) sec INR (0.9-1.1) APTT (21.5-31.9) sec VBG Lactate (0.6-1.4) mmol/L Sodium (136-145) mmol/L 139 Potassium (3.5-5.1) mmol/L 4.2 Chloride (98-107) mmol/L 103 Carbon Dioxide (21.0-32.0) mmol/L 28.5 Anion Gap (3-11) mmol/L 7.5 BUN (7-18) mg/dL 34 H Creatinine (0.70-1.30) mg/dL 1.8 H Est GFR (CKD-EPI 2020) (mL/min/1.73m2) 39.99 Glucose (74-106) mg/dL 152 H Calcium (8.5-10.1) mg/dL 8.8 Magnesium (1.8-2.4) mg/dL Total Bilirubin (0.2-1.0) mg/dL AST (15-37) U/L ALT (16-63) U/L Alkaline Phosphatase (46-116) U/L Lactate Dehydrogenase (85-227) U/L Troponin I (<or=60) ng/L C-Reactive Protein (0.0-0.3) mg/dL Total Protein (6.4-8.2) g/dL Albumin (3.4-5.0) g/dL Procalcitonin ng/mL Urine Color (Yellow) Urine Clarity (Clear) Urine pH (5-8) Ur Specific [place] (1.005-1.025) Urine Protein (Negative) mg/dL Urine Ketones (Negative) mg/dL Urine Blood (Negative) Urine Nitrite (Negative) Urine Bilirubin (Negative) Urine Urobilinogen (Up to 0.2) mg/dL Ur Leukocyte Esterase (Negative) Urine Glucose (Negative) mg/dL Fluid Type Fluid Source Fluid Color Fluid Clarity Fluid WBC (0) uL Fld Polynuclear WBCs % % Fluid Mononuclear Cell % Fluid Glucose (See Note) mg/dL Fluid Total Protein g/dL Fluid LDH U/L Vancomycin Trough (10.0-20.0) ug/mL Rheumatoid Factor (<12.0) IU/mL <8.6 Cyclic Citrull Peptide (<5.0) U/mL <2.5 Lymph/Leukemia Panel (See below) COVID-19 Source SARS-CoV-2 (PCR) (Negative) Influenza Type A (PCR) (Negative) Influenza Type B (PCR) (Negative) RSV (PCR) (Negative) TB Test Ag - Nil 1 IU/mL TB Test Ag - Nil 2 IU/mL TB Test (QFT) Interp (Negative) Path Cons Comment Range/Units 06/08/22 06:37 WBC (4.4-10.8) 10^3/uL RBC (4.36-5.78) 10^6/uL Hgb (13.5-17.5) g/dL Hct (40.0-50.0) % MCV (80-95) fL MCH (27.0-33.0) pg MCHC (32.0-36.0) % RDW (11.8-14.1) % Plt Count (130-400) 10^3/uL MPV (8.0-11.0) fL Immature Gran % Neutrophils % Lymphocytes % Monocytes % Eosinophils % Basophils % Nucleated RBC % (0.0-0.3) % Absolute Neutrophils (1.2-6.7) 10^3/uL Absolute Lymphocytes (1.2-3.4) 10^3/uL Absolute Monocytes (0.1-0.8) 10^3/uL Absolute Eosinophils (0.0-0.7) 10^3/uL Absolute Basophils (0.0-0.2) 10^3/uL PT (9.3-11.0) sec INR (0.9-1.1) APTT (21.5-31.9) sec VBG Lactate (0.6-1.4) mmol/L Sodium (136-145) mmol/L 139 Potassium (3.5-5.1) mmol/L 3.9 Chloride (98-107) mmol/L 103 Carbon Dioxide (21.0-32.0) mmol/L 25.7 Anion Gap (3-11) mmol/L 10.3 BUN (7-18) mg/dL 31 H Creatinine (0.70-1.30) mg/dL 1.6 H Est GFR (CKD-EPI 2020) (mL/min/1.73m2) 46.06 Glucose (74-106) mg/dL 197 H Calcium (8.5-10.1) mg/dL 8.9 Magnesium (1.8-2.4) mg/dL Total Bilirubin (0.2-1.0) mg/dL AST (15-37) U/L ALT (16-63) U/L Alkaline Phosphatase (46-116) U/L Lactate Dehydrogenase (85-227) U/L Troponin I (<or=60) ng/L C-Reactive Protein (0.0-0.3) mg/dL Total Protein (6.4-8.2) g/dL Albumin (3.4-5.0) g/dL Procalcitonin ng/mL Urine Color (Yellow) Urine Clarity (Clear) Urine pH (5-8) Ur Specific [place] (1.005-1.025) Urine Protein (Negative) mg/dL Urine Ketones (Negative) mg/dL Urine Blood (Negative) Urine Nitrite (Negative) Urine Bilirubin (Negative) Urine Urobilinogen (Up to 0.2) mg/dL Ur Leukocyte Esterase (Negative) Urine Glucose (Negative) mg/dL Fluid Type Fluid Source Fluid Color Fluid Clarity Fluid WBC (0) uL Fld Polynuclear WBCs % % Fluid Mononuclear Cell % Fluid Glucose (See Note) mg/dL Fluid Total Protein g/dL Fluid LDH U/L Vancomycin Trough (10.0-20.0) ug/mL Rheumatoid Factor (<12.0) IU/mL Cyclic Citrull Peptide (<5.0) U/mL Lymph/Leukemia Panel COVID-19 Source SARS-CoV-2 (PCR) (Negative) Influenza Type A (PCR) (Negative) Influenza Type B (PCR) (Negative) RSV (PCR) (Negative) TB Test Ag - Nil 1 IU/mL TB Test Ag - Nil 2 IU/mL TB Test (QFT) Interp (Negative) Path Cons Comment
[2022-06-10] MEDS: Tiotropium/Olodaterol 10 PUFF INHALER 2 PUFF IH (08:33)
[2022-06-10] MEDS: Apixaban 5 MG TAB PO ×2 (09:09→19:22)
[2022-06-10] MEDS: Metoprolol CR 100 MG TABCR PO ×2 (09:10→19:22)
[2022-06-10] MEDS: Amoxicillin 875/Clav. 125 TAB PO ×2 (09:10→19:22)
[2022-06-10] MEDS: dilTIAZem CD 120 MG CAPCR PO (09:10)
[2022-06-10] MEDS: Spironolactone 50 MG TAB PO (09:11)
[2022-06-10] MEDS: Aspirin E.C. 81 MG TABEC PO (09:11)
[2022-06-10] MEDS: Cyanocobalamin 500 MCG TAB 1000 MCG PO (09:11)
[2022-06-10] MEDS: Furosemide 40 MG/4 ML VIAL IVP (09:13)
[2022-06-10] MEDS: Empaglifozin 10 MG TAB PO (09:15)
[2022-06-10] MEDS: Insulin Aspart 300 UNITS/3 ML PEN SC ×4 (09:15→20:53)
--- NOTE | 2022-06-10 09:17 | PDOC.CMPRO ---
- If Service Date Differs Date of service: 06/10/22 Time of Service: 09:17 Care Management Progress Note S/O: CM did not meet with Mejia today, PT reports he politely declined PT until drain is removed. CM will continue to follow. A: Demetrio is a 71 year old male admitted to [facility] on 06/02/22 for a pleural effusion. P: Mejia will likely return home once medically cleared, with a resumption of RN, PT. CM sent a referral to [place] for insurance support. He will follow up with his PCP, pulmonology, and his discharge plan of care. CM will continue to follow and support discharge needs.
--- NOTE | 2022-06-10 13:37 | PT.INNT ---
Date of service: 06/10/22 Time of Service: 13:37 PT Notes Visit Reasons: Pleural Effusion 06/10/2022 Patient pleasantly refused PT today. He reports that he is waiting for the doctor to come remove the drain, and that he does not want to participate until that happens. Will attempt to resume PT services tomorrow morning.
--- NOTE | 2022-06-10 14:34 | NUR.NOTE ---
Nursing Note: pt educated that passive movement/rom will not negatively effect chest tube. pt states that he just doesnt want to mess with it. will continue to monitor
--- NOTE | 2022-06-10 15:41 | PGE_ITS ---
Date of Service Date of service: 06/10/22 Time of Service: 15:41 Assessment and Plan Assessment and plan (1) Loculated pleural effusion: Status: Acute Assessment and plan: s/p placement of pleural catheter. His gram stain of pleural fluid was negative for bacteria. culture is no growth today. Pleural fluid cell count is mostly mononuclear rather than poly's. LDH and protein are pending. Cont iv lasix; now only daily. Have been considering Entresto and Jardiance. Given soft BP readings; have not started Entresto now but did initiate Jardiance. Dr Burger, pulmonary med following. Planning to d/c catheter today (not d/c'd yest). (2) Atrial fibrillation: Status: Chronic Assessment and plan: Cont apixiban. HR better controlled with addition of diltiazem but not optimal; increased to 180mg daily. Telemetry. 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 patient is currently on lasix and metoprolol. Initiating Jardiance. Echocardiogram on 06/04/22: Suboptimal quality. LV normal size. LV EF of 35%. Moderate global hypokinesis. Mod mitral regurg. Mild to mod tricuspid regurg. (4) CKD (chronic kidney disease): Status: Acute Assessment and plan: currently at BUN 31 and creatinine of 1.6 which appears to be his new baseline over the past year Qualifiers: Chronic kidney disease stage: stage 3 (moderate) Qualified Code(s): N18.3 - Chronic kidney disease, stage 3 (moderate) (5) COPD (chronic obstructive pulmonary disease) with emphysema: Status: Chronic Assessment and plan: Stable. His Stiolto was resumed per Dr. Burger, continue prn albuterol Qualifiers: Emphysema type: unspecified Qualified Code(s): J43.9 - Emphysema, unspecified (6) Type 2 diabetes mellitus: Status: Chronic Assessment and plan: holding glipizide and metformin; treating w/ SSI insulin sensitive scale. Adequately controlled in general. Monitor. Hgb A1c of 6.1. Qualifiers: Diabetes mellitus director of professional services insulin use: without director of professional services use Diabetes mellitus complication status: with hyperglycemia Qualified Code(s): E11.65 - Type 2 diabetes mellitus with hyperglycemia (7) CAD (coronary artery disease): Status: Chronic Assessment and plan: continue ASA, metoprolol, atorvastatin (8) Syncope: Status: Inactive Assessment and plan: While on the commode, he had a syncopal episode that lasted appx 36 secs. Nurse was present. When he regained consciousness he was A&O x 3. He reports this happens to him periodically. He always since while urinating. Later, another nursing accompanied him to the commode and she noted he was consistently stifling a cough and in effect doing a valsalva maneuver. This is likely the etiology of his syncopal episodes. He is encourage to cough freely. He states he doesn't consciously do this and today avoided doing so when going to and while on the commode. Qualifiers: Syncope type: unspecified Qualified Code(s): R55 - Syncope and collapse Subjective Subjective Patient reports: no new complaints, bowel movement and afebrile; denies nausea, vomiting or shortness of breath Exam Narrative Exam Narrative: Gen: sitting up in his chair. Pleasant and conversant. NAD. CV: Irreg Irreg. Lungs: Diminished breath sounds but improved air movement. Nonlabored breathing. Abdomen: obese, soft, nontender Legs: Compression wraps in place. toes warm and dry Psych: affect appropriate. Objective Last Vital Signs Temp 36.2 C L 06/10/22 14:56 Pulse 90 06/10/22 15:30 Resp 16 06/10/22 14:56 BP 104/64 06/10/22 14:56 Pulse Ox 98 06/10/22 14:56 Laboratory Results - last 24 hr 06/06/22 09:42 Lymph/Leukemia Panel (See below) Time Spent with Patient Time Spent with Patient: <25 minutes Time was spent: preparing to see the patient(eg.review tests), referring, communicating with other health patient care specialist and indepentently interpreting results
[2022-06-10] MEDS: Atorvastatin 40 MG TAB 80 MG PO (19:22)
[2022-06-11] VITALS (7 sets, daily range): BP systolic 110–129; BP diastolic 75–85; PULSE 68–113; RESP 14–17; TEMP 36.1–36.5; O2SAT 98–99
--- NOTE | 2022-06-11 06:59 | DI.RAD_ITS ---
Exam(s) XR PORTABLE CHEST AP EXAM: XR PORTABLE CHEST AP CLINICAL HISTORY: Chest tube removed. TECHNIQUE: 2D digital imaging was performed of the chest. One image was obtained. An AP view was ob tained. COMPARISON: CR XR PORTABLE CHEST AP from 10/04/2021 CR XR CHEST 2V PA LATERAL from 05/28/2022 FINDINGS: MEDIASTINUM: Normal. HEART: Cardiomegaly. Status post CABG. PULMONARY VASCULATURE: Normal. LUNGS: Clear. PLEURAL SPACE: There is no pneumothorax. There blunting of the right costophrenic angle and a trace pleural effusion may exist. The left lung is clear. BONE:Within normal limits for the patient's age. OTHER FINDINGS:Normal. IMPRESSION: No evidence of a pneumothorax. Possible trace right pleural effusion. DATA REPOSITORY: RADIATION DOSE DELIVERED:
--- NOTE | 2022-06-11 07:54 | DI.VRAD_ITS ---
PROCEDURE INFORMATION: Exam: XR Chest Exam date and time: 06/11/2022 6:31 AM Age: 71 years old Clinical indication: Other: Chest tube removed TECHNIQUE: Imaging protocol: Radiologic exam of the chest. Views: 1 view. COMPARISON: CT CHEST WO 06/05/2022 1:55 PM FINDINGS: Lungs: No focal consolidation seen. Pleural spaces: No pneumothorax identified. Questionable trace pleural effusions. Heart/Mediastinum: Enlarged cardiac silhouette. Bones/joints: Median sternotomy wires. IMPRESSION: Status post chest tube removal with findings as above. Dictated and Authenticated by: Rose Antunez MD. Ordering:WILL Harmon MD
[2022-06-11] MEDS: Normal Saline Flush 10 ML SYR IVP (08:28)
[2022-06-11] MEDS: Cyanocobalamin 500 MCG TAB 1000 MCG PO (08:29)
[2022-06-11] MEDS: dilTIAZem CD 120 MG CAPCR 180 MG PO (08:30)
[2022-06-11] MEDS: Empaglifozin 10 MG TAB PO (08:30)
[2022-06-11] MEDS: Spironolactone 50 MG TAB PO (08:30)
[2022-06-11] MEDS: Metoprolol CR 100 MG TABCR PO (08:32)
[2022-06-11] MEDS: Amoxicillin 875/Clav. 125 TAB PO (08:32)
[2022-06-11] MEDS: Furosemide 40 MG/4 ML VIAL IVP (08:32)
[2022-06-11] MEDS: Aspirin E.C. 81 MG TABEC PO (08:32)
[2022-06-11] MEDS: Apixaban 5 MG TAB PO (08:32)
[2022-06-11] MEDS: Tiotropium/Olodaterol 10 PUFF INHALER 2 PUFF IH (09:22)
--- NOTE | 2022-06-11 10:39 | PDOC.CMPRO ---
- If Service Date Differs Date of service: 06/11/22 Time of Service: 10:39 Care Management Progress Note pt discharged same day, no progress note needed. A: Demetrio is a 71 year old male admitted to [facility] on 06/02/22 for a pleural effusion. P: Mejia will likely return home once medically cleared, with a resumption of RN, PT. CM sent a referral to [place] for insurance support. He will follow up with his PCP, pulmonology, and his discharge plan of care. CM will continue to follow and support discharge needs.
--- NOTE | 2022-06-11 13:54 | W.PM.DS.N ---
Date of service: 06/11/22 Time of Service: 13:55 DS: Diagnosis Discharge Diagnosis (1) Loculated pleural effusion: Status: Acute Asessment and Plan: Underwent bronchoscopy with BAL. The pleural fluid was found to be exudative and lymphocyte predominant. This is a similar profile to September 2021. With a few re-occurances of this fluid it is worrisome for a potential malignant cause. Sent a referral to [facility] [place] surgery for consideration of the pleural biopsy. The other potential causes of a lymphocyte exudative effusion (TB, rheumatoid) have had negative serological testing. His peripheral flow cytometry is also negative. On day of discharge his pigtail chest tube was removed and post-removal CXR showed no pneumothorax. There was possibly a small residual effusion, but overall significantly better. - continue antibiotics for a 10 day course- was changed from ceftriaxone to PO Augmentin for remainder of course - referral for [facility] thoracics for consideration of a pleural biopsy made (2) Atrial fibrillation: Status: Chronic Asessment and Plan: He is on Apixiban for anticoagulation. He was admitted on his home metoprolol Cr 100mg BID. Now also on diltiazem CD 180 daily. (3) Cardiomyopathy: Status: Acute Asessment and Plan: Echocardiogram on 11/04/22: LVEF of 35%. Moderate global hypokinesis. Mod mitral regurgitation. (4) CKD (chronic kidney disease): Status: Acute Asessment and Plan: Creatinine now 1.6. Stable at his baseline. (5) COPD (chronic obstructive pulmonary disease) with emphysema: Status: Chronic Asessment and Plan: Cont Symbicort. Was on Stiolto but cost was prohibitive to continue as outpt. (6) Type 2 diabetes mellitus: Status: Chronic Asessment and Plan: Resume his home glipizide and metformin. Jardiance for goal directed CHF therapy was initiated last in this admission, but it was cost prohibitive to continue as outpt. (7) CAD (coronary artery disease): Status: Chronic Asessment and Plan: Continue ASA, atorvastain and BB. No CP reported. (8) Syncope: Status: Inactive Asessment and Plan: Appears to be related to vaso-vagal episodes when he holds in a sneeze or cough, effectively doing a valsalva maneuver. This has not occured again since this was noted by a nurse and brought to his attention. Discharge Plan Disposition Patient Disposition: Home W/Home Health Services Condition: Stable Discharge Details Reason For Visit: Pleural Effusion Admit Date/Time: 06/04/22 13:33 Admit Provider: Davin May Attending Provider: Davin May Primary Care Provider: Martha Valera Hospital Course Hospital Course: 71 yo male with multiple medical problems, including CHF, COPD, DM,? CAD, AF -- has had recurrent right sided pleural effusion, s/p multiple thoracentesis without specific diagnosis, most recently 05/08. Has been treated with escalating doses of diuretics w/o effect. Had f/u CT which demonstrated loculation. Sent to ER by Pulmonolgy for antibiotics and drainage. Surgery unable to locate safe route for procedure and IR [facility] contacted and he was accepted for down and back procedure. He was admitted for IV antibiotics, pulmonary consultation, diuretics. Denied fever, chills cough or CP. See Diagnosis ? PCP follow up in 1 week Has referral to [facility] cardiothoracic for pleural biopsy Home Meds and New Rx's Prescriptions: New diltiazem HCl 120 mg Capsule,Extended Release 24hr 180 mg PO DAILY Qty: 0 0RF spironolactone 50 mg Tablet 50 mg PO DAILY Qty: 1 0RF amoxicillin-pot clavulanate 875-125 mg Tablet 1 tab PO BID Qty: 7 0RF spironolactone 50 mg tablet 50 mg PO DAILY Qty: 30 0RF diltiazem HCl 180 mg capsule,extended release 24 hr 180 mg PO DAILY Qty: 30 0RF Continued betamethasone valerate 0.1 % ointment 1 applic topical QD-BID PRN (Reason: High Potency (Group 3) topical steroid) Qty: 45 3RF nystatin 100,000 unit/gram powder 1 applic topical BID Qty: 30 0RF Rx Instructions: Apply liberally to groin folds twice daily for 7-14days for yeast. furosemide 20 mg tablet See Rx Instructions PO BID Qty: 270 0RF Hold Instructions: Resume on 05/15/22. Please hold tomorrow's dose of Lasix and resume dosing on 05/15/2022 Rx Instructions: 40 mg AM and 20 mg PM orally twice a day; albuterol sulfate 90 mcg/actuation HFA aerosol inhaler 2 puff inhalation QID PRN (Reason: SOB) Qty: 18 12RF Eliquis 5 mg tablet 5 mg PO BID Qty: 180 3RF (DME) Blood Glucose Test Strip See Rx Instructions .ROUTE .MEDSUPPLY Qty: 100 3RF Rx Instructions: As directed to check blood glucose daily. No insulin. Dispense covered brand. (DME) lancets Misc See Rx Instructions .ROUTE .MEDSUPPLY Qty: 100 3RF Rx Instructions: As directed to check blood glucose daily. No insulin. Dispense covered brand. (DME) comp.stocking,knee,long,medium Misc See Rx Instructions .ROUTE .MEDSUPPLY Qty: 2 0RF Rx Instructions: As directed. Please measure patient for appropriate size. cyanocobalamin (vitamin B-12) 1,000 mcg tablet 1,000 mcg PO DAILY Qty: 90 3RF ammonium lactate 12 % cream 1 applic topical QD-BID PRN (Reason: dry skin) Qty: 140 3RF aspirin 81 mg tablet,delayed release (DR/EC) 81 mg PO DAILY glipizide 5 mg tablet extended release 24hr 5 mg PO DAILY Qty: 90 3RF budesonide-formoterol [Symbicort] 160-4.5 mcg/actuation HFA aerosol inhaler 2 puff inhalation BID PRN metoprolol succinate 100 mg tablet extended release 24 hr 100 mg PO BID (DME) blood-glucose meter [OneTouch UltraMini] Kit See Rx Instructions .ROUTE .MEDSUPPLY Qty: 1 0RF Rx Instructions: As directed atorvastatin 80 mg tablet 80 mg PO 1XD Patient Comments: TAKE 1 TABLET BY MOUTH EVERY EVENING acetaminophen 500 mg Capsule 1,000 mg PO Q6H PRN metformin 500 mg tablet 500 mg PO BID Discharge Instructions Instructions: Pleural Effusion (GEN) Referrals: Diya Kidd MD [ [facility] STAFF PHYSICIAN] - 06/16/22 10:20 am Activity:: Activity as Tolerated Equipment/Supplies:: No Equipment Needed Diet:: Low Na Diabetic Discharge Orders Discharge Orders: Discharge Order (Routine); Ordered 06/11/22 Ordered By: Faustino Goldstein DS: Summary Time Spent with Patient providing and/or coordinating discharge services: Greater than 30 minutes Status at Discharge Functional status at discharge: independent ambulation Overall status at discharge: patient is progressing back to baseline Mental Status: mental status grossly normal Speech and Movement: speech and movement normal Mood: congruent mood Affect: normal affect Exam Narrative Exam Narrative: Gen: sitting up in his chair. Pleasant and conversant. NAD. CV: Irreg Irreg. Lungs: Diminished breath sounds but improved air movement. Nonlabored breathing. Pigtail catheter removed; site has bandage in place. Abdomen: obese, soft, nontender Legs: Compression wraps in place. toes warm and dry Psych: affect appropriate. Psych Mental Status: mental status grossly normal Speech and Movement: speech and movement normal Mood: congruent mood Affect: normal affect DS: Data Vitals/I&O Vitals and I&O: Vital Signs Temperature 36.5 C 06/11/22 11:15 Temperature Source Tympanic 06/11/22 11:15 Pulse 107 H 06/11/22 11:15 Pulse Rhythm Irregular 06/11/22 08:40 Pulse 120 H 06/02/22 20:31 Respiratory Rate 14 06/11/22 11:15 Respiratory Effort Normal, Non-Labored 06/11/22 05:03 Respiratory Depth Normal 06/11/22 05:03 Respiratory Pattern Normal 06/11/22 05:03 Blood Pressure 129/76 06/11/22 11:15 Blood Pressure Mean 83 06/02/22 20:31 Blood Pressure Position Sitting 06/02/22 15:48 Pulse Oximetry 98 06/11/22 11:15 Oxygen Delivery Method Room Air 06/11/22 11:15 Oxygen Flow Rate 0 06/11/22 11:15 Pain Level 0 06/11/22 11:15 Comment RN notfied 06/10/22 20:15 Intake & Output 06/10/22 06/11/22 06/11/22 23:59 11:59 23:59 Intake Total 540 / 1090 350 / 350 Output Total 1300 / 3400 550 / 550 Balance -760 / -2310 -200 / -200 Intake: Oral 540 / 1090 350 / 350 Output: Chest Tube Drainage 0 / 0 Urine 1300 / 3300 550 / 550 Other: Urine Color Yellow Straw Urine Appearance Clear Clear Urine Odor None Strong Stool Size Small Moderate Stool Characteristics Hard Formed Brown Voiding Methods Bedside Commode Bedside Commode Data Completed and Pending Labs on day of discharge: Preliminary micro results at discharge 06/05/22 16:40 Body Fluid Culture - Preliminary Pleural 06/05/22 16:40 Anaerobic Culture - Preliminary Pleural PFSH All Active Problems Loculated pleural effusion (Acute) Cardiomyopathy (Acute) CAD (coronary artery disease) (Chronic) Corns and callosities (Acute) Nail dystrophy (Acute) Hypercapnic respiratory failure (Acute) Heart failure, systolic, chronic (Acute) Recurrent infections (Chronic) H/o recurrent leg cellulitis and sepsis CHF (congestive heart failure) (Acute) 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 2 diabetes mellitus (Chronic ~10/2019) Atrial fibrillation (Chronic) Psoriasis (Chronic) Tinea pedis (Acute 10/29/20) [facility] Inf Disease Vitamin B12 deficiency (Chronic) Stasis dermatitis of both legs (Acute) CKD (chronic kidney disease) (Acute) Essential hypertension (Chronic) Type 2 diabetes mellitus (Chronic) Venous insufficiency (Chronic) COPD (chronic obstructive pulmonary disease) with emphysema (Chronic) Obesity (Chronic) Hyperlipidemia, unspecified (Chronic) Tobacco use disorder (Chronic) Medical History Anemia Hypothyroidism NSTEMI (non-ST elevated myocardial infarction) Sepsis syndrome Surgical History Colonoscopy - MAC (11/10/16) Orchiectomy, Radical Left, s/p trauma Repair, ACL Right-Age 17 S/P CABG x 3 (04/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 at age 79. Essential hypertension Myocardial infarction Maternal Aunt Neoplasm Adnexa NOS Maternal Grandmother Neoplasm Adnexa NOS Mother , CVA & PNA at age 81. Essential hypertension Stroke Paternal Grandfather Myocardial infarction Social History Smoking/Tobacco Use Status: Former Tobacco Use Smoking risk assessment performed?: Yes Alcohol Intake: current Alcohol Intake frequency: holidays/special occasions only Drug use: Never Substance use type: does not use Adopted: No Caregiver/Support person: No Household members: spouse, family and children Number of Children: 2 number of grandchildren: 4 Communication Needs: None Education Level: college Details: Some College Do you need help understanding health information?: Rarely Pets and animals: No Sexually active: No Do you think of yourself as: straight/heterosexual Current gender identity: male What is your relationship status?: How often do you talk on the phone with friends or family?: once per week How often do you get together with friends or relatives?: once per week Do you belong to any clubs or organized social groups?: no Panel score (0-1 are the most socially isolated patients): 1 What type of physical activity do you participate in: resistance training Duration: < 15 minutes/day Frequency: 1-2 times per week Chantell/Congregation: Scientology Special cahntell needs: No Seatbelt use: always Drive intox or ride w/intox class a regional drivers: No Do you feel safe at home: Yes Do you feel safe in your relationship?: Yes Time Spent with Patient Time Spent with Patient: 45-69 minutes Time was spent: referring, communicating with other health life care planner, indepentently interpreting results, counseling the patient and care coordination
--- NOTE | 2022-06-11 14:07 | SCONE_ITS ---
Date of service: 06/11/22 Time of Service: 14:08 Assessment and Plan Assessment and plan (1) Loculated pleural effusion: Status: Acute Assessment and plan: Pigtail catheter removed today without complications Discussed with Dr. Goldstein History of Present Illness Narrative: We were asked to see Mr. Artis for removal of a chest tube placed [place] [facility] [place]. He is doing well and is being discharged. We placed him on waterseal yesterday and CXR today. CXR looked good this morning. He has had no fevers. Consults Consult date: 06/11/22 Requesting physician: Kinga Marlow Review of Systems All systems reviewed & are unremarkable except as noted in HPI and below PFSH All Active Problems Loculated pleural effusion (Acute) Cardiomyopathy (Acute) CAD (coronary artery disease) (Chronic) Corns and callosities (Acute) Nail dystrophy (Acute) Hypercapnic respiratory failure (Acute) Heart failure, systolic, chronic (Acute) Recurrent infections (Chronic) H/o recurrent leg cellulitis and sepsis CHF (congestive heart failure) (Acute) 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 2 diabetes mellitus (Chronic ~10/2019) Atrial fibrillation (Chronic) Psoriasis (Chronic) Tinea pedis (Acute 10/29/20) [facility] [place] Vitamin B12 deficiency (Chronic) Stasis dermatitis of both legs (Acute) CKD (chronic kidney disease) (Acute) Essential hypertension (Chronic) Type 2 diabetes mellitus (Chronic) Venous insufficiency (Chronic) COPD (chronic obstructive pulmonary disease) with emphysema (Chronic) Obesity (Chronic) Hyperlipidemia, unspecified (Chronic) Tobacco use disorder (Chronic) Medical History Anemia Hypothyroidism NSTEMI (non-ST elevated myocardial infarction) Sepsis syndrome Surgical History Colonoscopy - MAC (11/10/16) Orchiectomy, Radical Left, s/p trauma Repair, ACL Right-Age 17 S/P CABG x 3 (04/11/22) [facility] Family History Father , DC? at age 79. Essential hypertension Myocardial infarction Maternal Aunt Neoplasm Adnexa NOS Maternal Grandmother Neoplasm Adnexa NOS Mother , CVA & PNA at age 81. Essential hypertension Stroke Paternal Grandfather Myocardial infarction Social History Smoking/Tobacco Use Status: Former Tobacco Use Smoking risk assessment performed?: Yes Alcohol Intake: current Alcohol Intake frequency: holidays/special occasions only Drug use: Never Substance use type: does not use Adopted: No Caregiver/Support person: No Household members: spouse, family and children Number of Children: 2 number of grandchildren: 4 Communication Needs: None Education Level: college Details: Some College Do you need help understanding health information?: Rarely Pets and animals: No Sexually active: No Do you think of yourself as: straight/heterosexual Current gender identity: male What is your relationship status?: How often do you talk on the phone with friends or family?: once per week How often do you get together with friends or relatives?: once per week Do you belong to any clubs or organized social groups?: no Panel score (0-1 are the most socially isolated patients): 1 What type of physical activity do you participate in: resistance training Duration: < 15 minutes/day Frequency: 1-2 times per week Chantell/Spiritism: Scientologist Special chantell needs: No Seatbelt use: always Drive intox or ride w/intox catshovel driver: No Do you feel safe at home: Yes Do you feel safe in your relationship?: Yes Exam Const General: cooperative, healthy appearing and no acute distress Nutritional Appearance: obese HENMT Head: normocephalic and atraumatic Resp Effort & Inspection: normal respiratory effort Other: There is a pigtail catheter going through the back into the right chest cavity. The catheter was removed from the waterseal. The string was cut and the chest tube was removed without difficulty. a Mepilex dressing was applied. Results Last Vital Signs Temp 97.7 F 06/11/22 11:15 Pulse 107 H 06/11/22 11:15 Resp 14 06/11/22 11:15 BP 129/76 06/11/22 11:15 Pulse Ox 98 06/11/22 11:15 Labs 06/05/22 06:32 06/08/22 06:37
--- NOTE | 2022-06-11 16:13 | PDOC.CMDIS ---
- If Service Date Differs Date of service: 06/11/22 Time of Service: 16:13 LACE Index Scoring Tool - Questions: Length of Stay (in days): 7 - 13 Acuity (Admit via E.D.?): Yes Comorbidities: Previous M.I., Diabetes w/o Complication, Chronic Pulmonary Disease E.D. Visits: 4 - Answers: Total Score: 17 Risk of Readmission: High Risk Care Management Discharge Reason for Hospitalization: Pleural Effusion Discharge Plan: Mejia will return home today with a resumption of JORDY RN, PT. CM informed [facility] of his discharge today. His will drive him home via private vehicle. He will follow up with his PCP and discharge plan of care. Patient/Family Education Needs: Review discharge instructions and limitations, discussion of self care needs including ask me three. Services Needed at Discharge: Home Health Care Services (JORDY RN, PT)
--- NOTE | 2022-06-11 18:23 | INDS_ITS ---
Date of service: 06/11/22 Time of Service: 10:30 PT Notes Visit Reasons: Pleural Effusion Physical Therapy Inpatient Discharge Summary Date: 06/11/2022 Dates of Service: 06/06/2022 through 06/12/2022 Referring Doctor:? Jackie Enriquez,? PT Orders: PT CONSULT: Eval/Treat Precautions: Fall. Standard. Activity as tolerated.? Patient Profile/Admitting Diagnosis:? Patient is a 71-year-old male patient who presened to the ED on 06/02/2022 due to worsening shortness of breath.? Patient is admitted for management of pleaural effusion,? AF,? cardiomegaly,? CKD,? COPD,? type II DM,? CAD,? and syncope. PMHX: All Active Problems? Pericardial effusion (Acute) Pleural effusion (Acute) Cardiomyopathy (Acute) CAD (coronary artery disease) (Chronic) Corns and callosities (Acute) Nail dystrophy (Acute) Hypercapnic respiratory failure (Acute) Heart failure, systolic, chronic (Acute) Recurrent infections (Chronic) H/o recurrent leg cellulitis and sepsis CHF (congestive heart failure) (Acute) 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 2 diabetes mellitus (Chronic ~10/2019) Atrial fibrillation (Chronic) Psoriasis (Chronic) Tinea pedis (Acute 10/29/20) [facility] [place] Vitamin B12 deficiency (Chronic) Stasis dermatitis of both legs (Acute) CKD (chronic kidney disease) (Acute) Essential hypertension (Chronic) Type 2 diabetes mellitus (Chronic) Venous insufficiency (Chronic) COPD (chronic obstructive pulmonary disease) with emphysema (Chronic) Obesity (Chronic) Hyperlipidemia, unspecified (Chronic) Tobacco use disorder (Chronic) Medical History? Anemia Hypothyroidism NSTEMI (non-ST elevated myocardial infarction) Sepsis syndrome Surgical History? Colonoscopy - MAC (11/10/16) Orchiectomy, Radical Left, s/p trauma Repair, ACL Right-Age 17 S/P CABG x 3 (04/11/22) [facility] Social History/Home Situation: Lives with in a private home.? Independent with mobility ADL perfromance using FWW and 4WW.? Equipment Owned/DME: FWW, 4WW Subjective: Short of breath and dizzy with short distance ambulation.? Objective: General Observation: Now on room air.? Chest tube in place.? Unna boot in place.? High BMI.? IV access in R UE. Mental Status: Alert and oriented as to person, place, time, and purpose. Able to pay attention, focus, and respond appropriately. Pain: 2-3/10 in B legs Vital Signs: WNL as closely monitored by nursing staff ROM: Right Upper Extremity: ? Shoulder Flexion WFL. Shoulder abduction WFL. Elbow flexion WFL. Wrist flexion WFL. Functional opening and closing of hand WFL. Left Upper Extremity:? Shoulder Flexion WFL. Shoulder abduction WFL. Elbow flexion WFL. Wrist flexion WFL. Functional opening and closing of hand WFL. Right Lower Extremity: Hip flexion WFL. Hip abduction WFL. Knee flexion WFL. Ankle dorsiflexion to neutral only. Ankle plantarflexion WFL. Left Lower Extremity: Hip flexion WFL. Hip abduction WFL. Knee flexion WFL. Ankle dorsiflexion to neutral only. Ankle plantarflexion WFL. Strength: Right Upper Extremity: Shoulder flexors 4-/5. Shoulder abductors 4-/5. Elbow flexors 4-/5. Elbow extensors 4-/5. Security Ambassador strong. Left Upper Extremity: Shoulder flexors 4-/5. Shoulder abductors 4-/5. Elbow flexors 4-/5. Elbow extensors 4-/5. Security Ambassador strong. Right Lower Extremity: Hip flexors 4-/5. Hip abductors 4-/5. Knee flexors 4-/5. Knee extensors 4-/5. Ankle dorsiflexors 3-/5. Ankle plantarflexors 4-/5. Left Lower Extremity: Hip flexors 4-/5. Hip abductors 4-/5. Knee flexors 4-/5. Knee extensors 4-/5. Ankle dorsiflexors 3-/5. Ankle plantarflexors 4-/5. Bed Mobility/Transfers: Sit to stand supervision Stand to sit supervision Gait: Instructed patient with level surface ambulation of 12 feet requiring supervision. Maribell decreased. Step height decreased. Step length decreased.? Short of breath.? Complained of being dizzy that resolved with rest. Balance: Static Sitting: Normal Dynamic Sitting: Normal Static Standing: Fair Dynamic Standing: Fair Special Tests: Mobility Limitations Standardized Measure [facility] AM-PAC 6 clicks Basic Mobility Inpatient Short Form: Raw Score: 22? CMS Score: 21% deficit? ? ? Informed Consent/Education:? Patient was instructed in purpose of PT consult and plan of care. Agreeable to proceed with established PT POC to achieve personal goals. Assessment: Patient presents with clinical signs and symptoms consistent with current/admitting diagnoses that have resulted to mobility limitations, gait instability, generalized weakness, and overall ADL decline as demonstrated by the following impairment level findings: 1.? Decreased strength to B UE/LE major muscle groups 2.? Impaired sitting/standing balance 3.? Impaired activity tolerance 4.? Shortness of breath 5.? Swelling Impairments are contributing to the following functional limitations: 1.? Decline in bed mobility skills 2.? Decline in transfer skills 3.? Difficulty with ambulation without assistive device and physical assistance 4.? Increased completion time for mobility ADL performance 5.? Increased risk for falls 6.? Difficulty with managing steps alone safely Goals: Goals X1 week 1. Supine-Sit independent MET 2. Sit-Supine independent MET 3. Sit-Stand independent MET 4. Stand-Sit independent with 4WW NOT MET 5. Bed-Chair independent with 4WW NOT MET 6. Chair-Bed independent with 4WW NOT MET 7. Independent gait on level surface with use of 4WW for at least 200 feet without report of pain nor dyspnea NOT MET 8. Independent stair negotiation while holding onto B rails for at least 3 steps without report of pain nor dyspnea NOT MET 9. Independent with home exercise program NOT MET 10. Good static and dynamic standing balance/tolerance NOT MET DISCHARGE RECOMMENDATIONS: [] ? Home with no services [] [X] ? Home with services.? Patient will benefit from home health PT services in order to progress mobility level using least restrictive assistive ambulatory device, assess home safety, identify additional equipment needs, and establish a functional maintenance program that will increase ability of patient to remain at home. [] ? Home with outpatient PT [] [] ? SNF for continued rehabilitation [] [] ? Assisted Care [] [] ? SNF versus LTC based on ability to participate and progress [] TREATMENT CODE/TIME: 92867 x 14 minutes beginning at 10:34 AM. Thank you for the opportunity to participate in the care of this patient. Danica Arreola PT, DPT, CLT [facility] [place], [place]
[2022-07-03 08:39] LABS: Fungus Smear No Fungi Seen
== END 2022-06-11 16:22 | disposition home health service (06) | DRG 187 ==
LOC: ER 19:59 → MS 20:57
PROVIDERS: Internal Medicine; Student in an Organized Health Care Education/Training Program; Admitting Provider General Practice; Emergency Provider Physician Assistant; PCP Nurse Practitioner Family; Visit Provider General Practice
DX: J90 Pleural effusion, not elsewhere classified (principal); I13.0 Hypertensive heart and chronic kidney disease with heart failure and stage 1 through stage 4 chronic kidney disease, or unspecified chronic kidney disease; I42.9 Cardiomyopathy, unspecified; I50.22 Chronic systolic (congestive) heart failure; I48.91 Unspecified atrial fibrillation; N18.30 Chronic kidney disease, stage 3 unspecified; J43.9 Emphysema, unspecified; E11.65 Type 2 diabetes mellitus with hyperglycemia; I25.10 Atherosclerotic heart disease of native coronary artery without angina pectoris; E11.22 Type 2 diabetes mellitus with diabetic chronic kidney disease; E66.9 Obesity, unspecified; Z68.38 Body mass index [BMI] 38.0-38.9, adult; E53.8 Deficiency of other specified B group vitamins; E78.5 Hyperlipidemia, unspecified; I87.2 Venous insufficiency (chronic) (peripheral); D64.9 Anemia, unspecified; E03.9 Hypothyroidism, unspecified; Z95.1 Presence of aortocoronary bypass graft; I25.2 Old myocardial infarction; Z87.891 Personal history of nicotine dependence; Z79.84 Long term (current) use of oral hypoglycemic drugs; Z79.01 Long term (current) use of anticoagulants; R55 Syncope and collapse; I34.0 Nonrheumatic mitral (valve) insufficiency
CPT/HCPCS: 36415; 71250; 80048; 80053; 84145; 86200; 87040; 87081; 87102; 87116; 87206; 87637; 88185; 94640; 96365; 96366; 96368; 97162; 97530; 99222; 99232; 99285; 71045; 80202; 81003; 81373; 83605; 83615; 83735; 83880; 84155; 84157; 84439; 84443; 84484; 85025; 85610; 85730; 86140; 86431; 86480; 87070; 87075; 87086; 87205; 88184; 88189; 89051; 93306; 94664; 94667; 94668; 99239; A0425; A0428; G0378; J0696; J1940

== ENCOUNTER → 2022-07-03 11:43 | Outpatient (BNVA) | payer MEDICARE, SELFPAY | PROVIDERS: PCP Nurse Practitioner Family; Visit Provider Internal Medicine Cardiovascular Disease | DX: I42.9 Cardiomyopathy, unspecified (principal); I25.810 Atherosclerosis of coronary artery bypass graft(s) without angina pectoris; I25.2 Old myocardial infarction; I11.0 Hypertensive heart disease with heart failure; I50.22 Chronic systolic (congestive) heart failure; R94.39 Abnormal result of other cardiovascular function study; I48.0 Paroxysmal atrial fibrillation; I87.2 Venous insufficiency (chronic) (peripheral) | CPT/HCPCS: 99214 ==

== ENCOUNTER 2022-08-05 13:40 | Emergency (ER) | payer MEDICARE, SELFPAY ==
--- NOTE | 2022-08-05 13:30 | RT.EKG_ITS ---
APPROVED REPORT Exam: Resting ECG Reason for Exam: chf Patient Location: E HR:103 bpm ECG Measurements Heart Rate 103 AXIS WV [id number] P [id number] QRSd 140 QRS 137 QT 408 T 17 QTc 539 Conclusion Pacemaker spikes or artifacts...timing non-diagnostic Atrial flutter with predominant 2:1 AV block...A-rate 227, multiple Ps Multiple ventricular premature complexes...V complexes w/ short R-R intervls Right bundle branch block...QRSd>120, terminal axis(90,270)
[2022-08-05 13:47] VITALS: BP 123/91; PULSE 110; RESP 24; TEMP 36.6; O2SAT 96
--- NOTE | 2022-08-05 14:00 | DI.US_ITS ---
Exam(s) US LOWER EXTREMITY VENOUS LT EXAM: US LOWER EXTREMITY VENOUS LT CLINICAL HISTORY: left leg swelling and pain TECHNIQUE: Left lower extremity venous ultrasound performed using grayscale, color-flow, and spectra l Doppler analysis. COMPARISON: No exams were available for comparison FINDINGS: The left common femoral, femoral and popliteal veins demonstrate normal compressibility, augmentation , and color Doppler. The posterior tibial and peroneal veins are patent. The distal calf veins could not be well visualized due to the patient's open wound. The saphenofemoral junction is unremarkable . There is no evidence of a Whiting cyst. The soft tissues are unremarkable. IMPRESSION: 1. No evidence of a left lower extremity DVT. 2. The findings were discussed with the emergency department on the date of the examination. DATA REPOSITORY:
[2022-08-05 14:30] LABS: HCT 39.1 % (40.0-50.0); HGB 11.7 g/dL (13.5-17.5); MCH 28.7 pg (27.0-33.0); MCHC 29.9 % (32.0-36.0); MCV 96 fL (80-95); MPV 9.3 fL (8.0-11.0); Platelet Count 314 10^3/uL (130-400); RBC 4.08 10^6/uL (4.36-5.78); RDW 17.1 % (11.8-14.1); WBC 7.34 10^3/uL (4.4-10.8)
--- NOTE | 2022-08-05 14:34 | W.ED.GENAD ---
Discharge Plan Disposition Patient Disposition: Home Discharge Details Clinical Impression: Localized swelling of lower leg, Venous stasis dermatitis Primary Care Provider: Martha Valera ED Provider: Mansoor Flores Home Meds and New Rx's Prescriptions: Continued betamethasone valerate 0.1 % ointment 1 applic topical QD-BID PRN (Reason: High Potency (Group 3) topical steroid) Qty: 45 3RF nystatin 100,000 unit/gram powder 1 applic topical BID Qty: 30 0RF Rx Instructions: Apply liberally to groin folds twice daily for 7-14days for yeast. furosemide 20 mg tablet See Rx Instructions PO BID Qty: 270 0RF Hold Instructions: Resume on 05/15/22. Please hold tomorrow's dose of Lasix and resume dosing on 05/15/2022 Rx Instructions: 40 mg AM and 20 mg PM orally twice a day; albuterol sulfate 90 mcg/actuation HFA aerosol inhaler 2 puff inhalation QID PRN (Reason: SOB) Qty: 18 12RF Eliquis 5 mg tablet 5 mg PO BID Qty: 180 3RF (DME) Blood Glucose Test Strip See Rx Instructions .ROUTE .MEDSUPPLY Qty: 100 3RF Rx Instructions: As directed to check blood glucose daily. No insulin. Dispense covered brand. (DME) lancets Misc See Rx Instructions .ROUTE .MEDSUPPLY Qty: 100 3RF Rx Instructions: As directed to check blood glucose daily. No insulin. Dispense covered brand. (DME) comp.stocking,knee,long,medium Misc See Rx Instructions .ROUTE .MEDSUPPLY Qty: 2 0RF Rx Instructions: As directed. Please measure patient for appropriate size. cyanocobalamin (vitamin B-12) 1,000 mcg tablet 1,000 mcg PO DAILY Qty: 90 3RF ammonium lactate 12 % cream 1 applic topical QD-BID PRN (Reason: dry skin) Qty: 140 3RF aspirin 81 mg tablet,delayed release (DR/EC) 81 mg PO DAILY glipizide 5 mg tablet extended release 24hr 5 mg PO DAILY Qty: 90 3RF budesonide-formoterol [Symbicort] 160-4.5 mcg/actuation HFA aerosol inhaler 2 puff inhalation BID PRN metoprolol succinate 100 mg tablet extended release 24 hr 100 mg PO BID diltiazem HCl 180 mg capsule,extended release 24 hr 180 mg PO DAILY Qty: 90 3RF spironolactone 50 mg tablet 50 mg PO DAILY Qty: 90 0RF (DME) blood-glucose meter [OneTouch UltraMini] Kit See Rx Instructions .ROUTE .MEDSUPPLY Qty: 1 0RF Rx Instructions: As directed atorvastatin 80 mg tablet 80 mg PO 1XD Patient Comments: TAKE 1 TABLET BY MOUTH EVERY EVENING acetaminophen 500 mg Capsule 1,000 mg PO Q6H PRN metformin 500 mg tablet 500 mg PO BID amoxicillin-pot clavulanate 875-125 mg Tablet 1 tab PO BID Qty: 7 0RF Discharge Instructions Instructions: Stasis Dermatitis (DC), Venous Insufficiency (DC) Additional Instructions: You were seen in the emergency department for left leg swelling and blisters. We performed labs and an ultrasound of your left leg that were unremarkable. You had a good pulse in your left foot and in both your feet. You likely have chronic venous stasis dermatitis. Perform daily dressing changes as you are performing prior with clean dry dressings. Talk to your doctor about getting more aggressive treatment again for your lower extremity swelling including the previous boot you were using. Return for any fevers or chills, worsening pain, or any worsening skin breakdown. Follow-up with your primary as soon as possible. Referrals: Martha Valera NP [Primary Care Provider] - 3 days Medical Decision Making 71-year-old male presents with left leg swelling and blistering. Suspect that this is related to chronic venous stasis dermatitis. No fever and no systemic symptoms and no redness or tenderness so I do not think that this represents infection. He recently backed off the aggressive lower extremity stockings for his lower extremity swelling and I think that this could be contributing now as the swelling certainly has gotten worse. Already on a blood thinner but will get ultrasound left lower extremity to rule out DVT but I think that this is significantly less likely. We will check some basic labs to make sure this is not due to worsening heart failure, renal dysfunction, or severe liver disease as a cause of the lower extremity edema though again I think that these are much less likely. Will await initial testing and reevaluate. Medical Records Medical records reviewed: Yes I reviewed the patient's medical records. Imaging Data Radiologic Study: Imaging: Ultrasound (left leg) Radiologist's impression: IMPRESSION: 1. No evidence of a left lower extremity DVT.? 2. The findings were discussed with the emergency department on the date of the examination. Lab Data Lab results reviewed: Yes I reviewed the patient's lab results. Labs: Chronic kidney disease at baseline. proBNP at baseline. Other labs grossly unremarkable. HPI General Date/Time Provider Initiated Documentation: 08/05/22 13:49. Limitations to Documentation: no limitations. Information obtained by: patient and family. HPI Narrative: 71-year-old male presents with left leg swelling and blistering. Says that he had special pneumatic boots that were helping with his lower extremity swelling. Discontinued about a week ago. Was doing okay but over the weekend developed worsening swelling in the left leg. Developed some blisters that popped and he went to his primary care doctor. They had difficulty obtaining a pulse in the left foot so sent him here for further evaluation. He is denying any other symptoms and says there is no pain just swelling and the blistering. No fevers or chills. No recent surgeries or procedures. Denying any other complaints. Related Data Home Medications Medication Instructions Recorded Confirmed blood-glucose meter (OneTouch #1 ea 11/02/19 08/05/22 UltraMini kit) comp.stocking,knee,long,medium #2 units 06/01/20 08/05/22 aspirin 81 mg tablet,delayed 81 mg PO DAILY 08/07/20 08/05/22 release ammonium lactate 12 % topical cream 1 applic topical QD-BID PRN dry 08/17/20 08/05/22 skin #140 grams cyanocobalamin (vitamin B-12) 1,000 mcg PO DAILY #90 tab-caps 08/17/20 08/05/22 1,000 mcg tablet betamethasone valerate 0.1 % 1 applic topical QD-BID PRN High 11/16/20 08/05/22 topical ointment Potency (Group 3) topical steroid #45 grams nystatin 100,000 unit/gram topical 1 applic topical BID #30 grams 09/13/21 08/05/22 powder glipizide 5 mg tablet, extended 5 mg PO DAILY #90 tab-caps 01/08/22 08/05/22 release 24 hr budesonide-formoterol HFA 160 2 puff inhalation BID PRN 03/18/22 08/05/22 mcg-4.5 mcg/actuation aerosol inhaler (Symbicort) atorvastatin 80 mg tablet 80 mg PO 1XD 05/03/22 08/05/22 acetaminophen 500 mg capsule 1,000 mg PO Q6H PRN 05/13/22 08/05/22 metformin 500 mg tablet 500 mg PO BID 05/13/22 08/05/22 metoprolol succinate 100 mg 100 mg PO BID 05/13/22 08/05/22 tablet,extended release 24 hr apixaban 5 mg tablet (Eliquis) 5 mg PO BID #180 tabs 05/15/22 08/05/22 blood sugar diagnostic (Blood #100 ea 05/15/22 08/05/22 Glucose Test strips) lancets #100 ea 05/15/22 08/05/22 furosemide 20 mg tablet See Rx Instructions PO BID #270 05/30/22 08/05/22 tabs albuterol sulfate 90 mcg/actuation 2 puff inhalation QID PRN SOB #18 06/02/22 08/05/22 aerosol inhaler grams amoxicillin 875 mg-potassium 1 tab PO BID #7 tabs 06/11/22 08/05/22 clavulanate 125 mg tablet diltiazem HCl 180 mg capsule,24 180 mg PO DAILY #90 caps 07/07/22 08/05/22 hr,extended release spironolactone 50 mg tablet 50 mg PO DAILY #90 tabs 07/23/22 08/05/22 Previous Rx's Medication Instructions Recorded blood-glucose meter (OneTouch #1 ea 11/02/19 UltraMini kit) comp.stocking,knee,long,medium #2 units 06/01/20 ammonium lactate 12 % topical cream 1 applic topical QD-BID PRN dry 08/17/20 skin #140 grams cyanocobalamin (vitamin B-12) 1,000 mcg PO DAILY #90 tab-caps 08/17/20 1,000 mcg tablet betamethasone valerate 0.1 % 1 applic topical QD-BID PRN High 11/16/20 topical ointment Potency (Group 3) topical steroid #45 grams nystatin 100,000 unit/gram topical 1 applic topical BID #30 grams 09/13/21 powder glipizide 5 mg tablet, extended 5 mg PO DAILY #90 tab-caps 01/08/22 release 24 hr apixaban 5 mg tablet (Eliquis) 5 mg PO BID #180 tabs 05/15/22 blood sugar diagnostic (Blood #100 ea 05/15/22 Glucose Test strips) lancets #100 ea 05/15/22 furosemide 20 mg tablet See Rx Instructions PO BID #270 05/30/22 tabs albuterol sulfate 90 mcg/actuation 2 puff inhalation QID PRN SOB #18 06/02/22 aerosol inhaler grams amoxicillin 875 mg-potassium 1 tab PO BID #7 tabs 06/11/22 clavulanate 125 mg tablet diltiazem HCl 180 mg capsule,24 180 mg PO DAILY #90 caps 07/07/22 hr,extended release spironolactone 50 mg tablet 50 mg PO DAILY #90 tabs 07/23/22 Allergies Allergy/AdvReac Type Severity Reaction Status Date / Time shellfish derived Allergy Intermediate Hives Verified 08/05/22 13:11 house dust Allergy Mild Verified 08/05/22 13:11 hay fever Allergy Mild runny nose Uncoded 08/05/22 13:11 and cough General Stated Complaint: GenMedical MONY: 3 Review of Systems Constitutional Constitutional: Denies chills, Denies fever(s) and Denies headache(s) Eyes Eyes: Denies change in vision ENT Ears, Nose, Mouth, and Throat: Denies headache(s) and Denies odynophagia Cardiovascular Cardiovascular: Denies chest pain and Denies dyspnea Respiratory Respiratory: Denies dyspnea Gastrointestinal Gastrointestinal: Denies abdominal pain, Denies diarrhea, Denies nausea, Denies odynophagia and Denies vomiting Genitourinary Genitourinary: Denies dysuria Musculoskeletal Musculoskeletal: Denies myalgias Comments: left leg swelling Integumentary/Breasts Skin/Breast: Denies changing lesions Neurologic Neurologic: Denies behavioral changes and Denies headache(s) Psychiatric Psychiatric: Denies behavioral changes Endocrine Endocrine: Denies heat intolerance Hematologic/Lymphatic Hematologic/Lymphatic: Denies lymphadenopathy PFSH All Active Problems (Updated 08/05/22 @ 15:39 by Mansoor Flores MD) Localized swelling of lower leg (Acute) Venous stasis dermatitis (Acute) Pleural effusion (Acute 06/26/22) Advanced care planning/counseling discussion (Acute) Palliative care patient (Acute) Cardiomyopathy (Acute) CAD (coronary artery disease) (Chronic) Corns and callosities (Acute) Nail dystrophy (Acute) Hypercapnic respiratory failure (Acute) Heart failure, systolic, chronic (Acute) Recurrent infections (Chronic) H/o recurrent leg cellulitis and sepsis CHF (congestive heart failure) (Acute) 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 2 diabetes mellitus (Chronic ~10/2019) Atrial fibrillation (Chronic) Psoriasis (Chronic) Tinea pedis (Acute 10/29/20) [facility] [place] [facility] [place] Vitamin B12 deficiency (Chronic) Stasis dermatitis of both legs (Acute) CKD (chronic kidney disease) (Acute) CKD3, Cr 1.4-1.9 [id number] Essential hypertension (Chronic) Type 2 diabetes mellitus (Chronic) Venous insufficiency (Chronic) COPD (chronic obstructive pulmonary disease) with emphysema (Chronic) Obesity (Chronic) Hyperlipidemia, unspecified (Chronic) Tobacco use disorder (Chronic) Medical History Anemia Hypothyroidism NSTEMI (non-ST elevated myocardial infarction) Sepsis syndrome Surgical History Colonoscopy - MAC (11/10/16) Orchiectomy, Radical Left, s/p trauma Repair, ACL Right-Age 17 S/P CABG x 3 (04/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 at age 79. Essential hypertension Myocardial infarction Maternal Aunt Neoplasm Adnexa NOS Maternal Grandmother Neoplasm Adnexa NOS Mother , CVA & PNA at age 81. Essential hypertension Stroke Paternal Grandfather Myocardial infarction Social History Smoking/Tobacco Use Status: Former Tobacco Use Smoking risk assessment performed?: Yes Alcohol Intake: current Alcohol Intake frequency: holidays/special occasions only Drug use: Never Substance use type: does not use Adopted: No Caregiver/Support person: No Household members: spouse, family and children Number of Children: 2 number of grandchildren: 4 Communication Needs: None Education Level: college Details: Some College Do you need help understanding health information?: Rarely Pets and animals: No Sexually active: No Do you think of yourself as: straight/heterosexual Current gender identity: male What is your relationship status?: How often do you talk on the phone with friends or family?: once per week How often do you get together with friends or relatives?: once per week Do you belong to any clubs or organized social groups?: no Panel score (0-1 are the most socially isolated patients): 1 What type of physical activity do you participate in: resistance training Duration: < 15 minutes/day Frequency: 1-2 times per week Chantell/Zoroastrian: Pentecostalism Special chantell needs: No Seatbelt use: always Drive intox or ride w/intox milk pickup driver: No Do you feel safe at home: Yes Do you feel safe in your relationship?: Yes Exam Const General: cooperative Nutritional Appearance: average body habitus Orientation: alert, awake and oriented x3 HENMT Head: normal to inspection Ears: external ears normal Mouth: moist mucous membranes Eyes Pupils: PERRL EOM: EOM intact bilaterally and No nystagmus Neck Neck: full ROM and no tracheal deviation Chest Chest: normal inspection of the chest Resp Auscultation: clear to auscultation bilaterally Cardio Rate: regular rate Rhythm: regular rhythm GI Inspection: normal to inspection Palpation: soft, no guarding, not rigid and nontender Back/Spine/Pelvis Back: No no CVA tenderness Thoracic/Lumbar Spine: thoracic and lumbar spine normal to inspection Skin General skin exam: no rashes or lesions noted Neuro General: patient alert, patient awake and patient oriented x3 Cranial Nerves: CN's II-XI intact bilaterally, PERRL and no nystagmus Cognition: normal cognition Motor: muscle tone normal throughout and strength 5/5 throughout Sensory Exam: no sensory deficits noted Extrem Other: Bilateral lower extremity swelling with some purple discoloration to both legs that patient says is chronic. Has large left medial malleolus blister that has eroded but not breaking through the entire dermis and cannot see subcutaneous tissue. Palpable DP and PT pulses bilaterally and brisk on the Doppler. Sensation and motor intact in bilateral lower extremities with full range of motion of all joints. No redness or warmth. No pain out of proportion to exam and all compartments of the lower extremity are soft. No palpable crepitus. Course Reevaluation(s) Time: 15:37 Reevaluation: Labs and ultrasound are unremarkable. Likely has chronic venous stasis and told him to follow-up with his doctor for more aggressive treatments for his lower extremity swelling and we will wrap him up here before he goes home. Will discharge with return precautions. Patient and family agreeable with this plan. Vital Signs Vital signs: Vital Signs Temperature 36.6 C 08/05/22 13:47 Pulse 110 H 08/05/22 13:47 Respiratory Rate 24 08/05/22 13:47 Blood Pressure 123/91 H 08/05/22 13:47 Pulse Oximetry 96 08/05/22 13:47 Temperature 36.6 C 08/05/22 13:47 Temperature Source Oral 08/05/22 13:47 Pulse 110 H 08/05/22 13:47 Respiratory Rate 24 08/05/22 13:47 Respiratory Effort Normal 08/05/22 14:22 Respiratory Depth Shallow 08/05/22 14:22 Blood Pressure 123/91 H 08/05/22 13:47 Blood Pressure Position Sitting 08/05/22 13:47 Pulse Oximetry 96 08/05/22 13:47 Oxygen Delivery Method Room Air 08/05/22 13:47 Oxygen Flow Rate 0 08/05/22 13:47 Lab/Test Results Lab/Test Results: Laboratory Tests Range/Units 08/05/22 13:58 WBC (4.4-10.8) 10^3/uL 7.34 RBC (4.36-5.78) 10^6/uL 4.08 L Hgb (13.5-17.5) g/dL 11.7 L Hct (40.0-50.0) % 39.1 L MCV (80-95) fL 96 H MCH (27.0-33.0) pg 28.7 MCHC (32.0-36.0) % 29.9 L RDW (11.8-14.1) % 17.1 H Plt Count (130-400) 10^3/uL 314 MPV (8.0-11.0) fL 9.3
[2022-08-05 14:35] LABS: INR 1.3 (0.9-1.1); Prothrombin Time 13.4 sec (9.3-11.0)
[2022-08-05 14:45] LABS: ALT 19 U/L (16-63); AST 15 U/L (15-37); Albumin 3.5 g/dL (3.4-5.0); Alkaline Phosphatase 84 U/L (46-116); Anion Gap 5.6 mmol/L (3-11); BUN 25 mg/dL (7-18); Bilirubin, Total 1.3 mg/dL (0.2-1.0); CO2 29.4 mmol/L (21.0-32.0); CREATININE 1.5 mg/dL (0.70-1.30); Calcium 9.1 mg/dL (8.5-10.1); Chloride 106 mmol/L (98-107); Estimated GFR 49.77 (mL/min/1.73m2); Glucose 125 mg/dL (74-106); NT-proBNP 1797 pg/mL (<300); Potassium 4.4 mmol/L (3.5-5.1); Sodium 141 mmol/L (136-145); Total Protein 8.4 g/dL (6.4-8.2)
[2022-08-05 15:25] VITALS: BP 114/81; PULSE 113; RESP 20; O2SAT 96
[2022-08-05 15:54] VITALS: BP 129/86; PULSE 111; RESP 20; O2SAT 94
== END 2022-08-05 16:08 | disposition home or self-care (01) ==
PROVIDERS: Emergency Provider Student in an Organized Health Care Education/Training Program; PCP Nurse Practitioner Family
DX: I83.12 Varicose veins of left lower extremity with inflammation (principal); R22.42 Localized swelling, mass and lump, left lower limb; I50.9 Heart failure, unspecified; N18.9 Chronic kidney disease, unspecified
CPT/HCPCS: 80053; 85027; 93005; 99284; 83880; 85610; 93010; 93971; 99283

== ENCOUNTER 2022-08-25 02:12 | Outpatient (CLI) | payer MEDICARE, SELFPAY ==
--- NOTE | 2022-08-25 07:45 | DI.RAD_ITS ---
Exam(s) XR CHEST 2V PA LATERAL EXAM: XR CHEST 2V PA LATERAL CLINICAL HISTORY: pleural effusion with PleurX,J90. TECHNIQUE: 2D digital imaging was performed. COMPARISON: CR,XR XR PORTABLE CHEST AP from 06/11/2022 FINDINGS: 2 views: Again noted is cardiomegaly and sternotomy wires and evidence of CABG. Pleural based density noted o amisha the lateral right hemithorax now evident. Possibly loculated fluid. There is a thin caliber drainage catheter in the right pleural space in this region. No obvious pleu ral effusion on the opposite-left side. Mild increased markings noted in the right lung base. Left lung remains clear. IMPRESSION: Right pleural findings as above. There is a thin caliber drainage catheter in this region. DATA REPOSITORY: RADIATION DOSE DELIVERED:
== END 2022-08-25 02:32 ==
LOC: DI 02:13
PROVIDERS: PCP Nurse Practitioner Family; Visit Provider Student in an Organized Health Care Education/Training Program
DX: J90 Pleural effusion, not elsewhere classified (principal)
CPT/HCPCS: 71046

== ENCOUNTER 2022-08-25 02:13 | Outpatient (CLI) | payer MEDICARE, SELFPAY ==
--- NOTE | 2022-08-25 07:30 | DI.US_ITS ---
Exam(s) US ABDOMEN EXAM: US ABDOMEN CLINICAL HISTORY: eval for liver dz,PERIPHERAL EDEMA,R60.9 TECHNIQUE: Ultrasound of complete upper abdomen performed using standard protocol. COMPARISON: US US LOWER EXTREMITY VENOUS LT from 08/05/2022 FINDINGS: There is a significant amount ascites evident in all 4 quadrants. LIVER: There are no hepatic lesions evident nor obvious dilatation of intrahepatic ducts. GALLBLADDER/BILIARY: There are no gallstones. No gallbladder wall edema nor pericholecystic fluid. The common hepatic duct isnot dilated, measuring 4-5mm at the level of gladys hepatis. PANCREAS: Not able to be studied as it obscured by midline bowel gas. SPLEEN: The spleen is not enlarged and there are no intrasplenic lesions evident. KIDNEYS:Contains possible nonobstructive 6 millimeter calculus. Midpole level. No cysts nor solid m asses ABDOMINAL AORTA: Mid-distal abdominal aorta obscured by midline gas. IVC: Normal diameter where visualized. IMPRESSION: 1. Abundant ascites evident. 2. Midline structures including the pancreas and aorta are not able to be visualized due to overlyin g bowel gas. 3. Possible 6 millimeter nonobstructive calculus at the midpole level of the left kidney. Recommend follow-up CT scan. DATA REPOSITORY:
== END 2022-08-25 02:33 ==
LOC: DI 02:13
PROVIDERS: PCP Nurse Practitioner Family; Visit Provider Nurse Practitioner Family
DX: R60.9 Edema, unspecified (principal); R18.8 Other ascites; R93.5 Abnormal findings on diagnostic imaging of other abdominal regions, including retroperitoneum
CPT/HCPCS: 36415; 80048; 71046; 76700; 83880; 85025

== ENCOUNTER 2022-08-25 04:28 | Outpatient (CLI) | payer MEDICARE, SELFPAY ==
[2022-08-25 11:47] LABS: Abs Immature Grans 0.02 10^3/uL (0.0-0.06); Absolute Basophil Count 0.07 10^3/uL (0.0-0.2); Absolute Eosinophil Count 0.26 10^3/uL (0.0-0.7); Absolute Lymphocyte Count 0.84 10^3/uL (1.2-3.4); Absolute Monocyte Count 0.92 10^3/uL (0.1-0.8); Absolute Neutrophil Count 3.66 10^3/uL (1.2-6.7); Basophils % 1.2; Eosinophils % 4.5; HCT 34.4 % (40.0-50.0); HGB 10.3 g/dL (13.5-17.5); Immature Grans % 0.3; Lymphocytes % 14.6; MCH 28.1 pg (27.0-33.0); MCHC 29.9 % (32.0-36.0); MCV 94 fL (80-95); MPV 8.5 fL (8.0-11.0); Monocytes % 15.9; Neutrophils % 63.5; Platelet Count 348 10^3/uL (130-400); RBC 3.66 10^6/uL (4.36-5.78); RDW-SD 58.6 fL; WBC 5.77 10^3/uL (4.4-10.8)
[2022-08-25 12:20] LABS: Anion Gap 4.8 mmol/L (3-11); BUN 29 mg/dL (7-18); CO2 30.2 mmol/L (21.0-32.0); Calcium 9.2 mg/dL (8.5-10.1); Chloride 103 mmol/L (98-107); Estimated GFR 35.24 (mL/min/1.73m2); Glucose 98 mg/dL (74-106); NT-proBNP 3040 pg/mL (<300); Potassium 4.6 mmol/L (3.5-5.1); Sodium 138 mmol/L (136-145)
== END 2022-08-25 04:29 | disposition home or self-care (01) ==
LOC: LBO 04:28
PROVIDERS: PCP Nurse Practitioner Family; Visit Provider Nurse Practitioner Family
DX: I50.9 Heart failure, unspecified (principal); N18.30 Chronic kidney disease, stage 3 unspecified; Z51.81 Encounter for therapeutic drug level monitoring; I10 Essential (primary) hypertension; I25.10 Atherosclerotic heart disease of native coronary artery without angina pectoris; R60.0 Localized edema
CPT/HCPCS: 36415; 80048; 83880; 85025

== ENCOUNTER 2022-08-27 12:52 | Outpatient (REF) | payer MEDICARE, SELFPAY ==
--- NOTE | 2022-08-27 12:30 | PAPNONF_PTH ---
PATIENT: Demetrio Artis LOC: [facility] U#:[id number] AGE/SX: 71/M ROOM: RE08/27/[address]: Kinga Marlow MD : 1950 BED: DIS: 08/27/2022 SPEC #: [id number] RECD: 08/27/22 18:17 STATUS: TUCKER REQ #: [id number] KASSIE: 08/27/22 12:[address]: Kinga Marlow DEPT: [facility] Cytology RECD BY: Mitali Regan ENTERED: 08/27/22 18:18 SP TYPE: REBECCA PEÑA DR: Martha Valera, BASSEM Tissues: 1 - BODY FLUID CYTO(NOT S/U/N/EM)[facility] Procedures: BODY FLUID CYTO(NOT SPU/UR/NIP/ENDOM)[facility] Comments: [id number] (TV = 250 ml, SENT FRESH) (REFRIGERATED)
[2022-08-27 14:05] LABS: Source Peritoneal
[2022-08-27 14:06] LABS: Clarity Clear; Nucleated Cells 631 uL (0)
[2022-08-27 14:50] LABS: Mononuclear Cells 97 %; Polynuclear Cells 3 %
[2022-08-27 22:34] LABS: Albumin, Body FLuid 1.8 g/dL (See Note); Glucose, Fluid 100 mg/dL (See Note)
[2022-08-29 10:02] LABS: Amylase, BF 18 U/L; Protein,Total, BF 4.1 g/dL
[2022-08-29 10:09] LABS: Lactate Dehydrogenase (LD), BF 94 U/L
== END 2022-08-27 12:53 | disposition home or self-care (01) ==
LOC: LBN 12:52
PROVIDERS: PCP Nurse Practitioner Family; Visit Provider Surgery
DX: R18.8 Other ascites (principal)
CPT/HCPCS: 82042; 81373; 82150; 83615; 84157; 87070; 87075; 87205; 88104; 89051

== ENCOUNTER 2022-08-27 14:12 | Outpatient (CLI) | payer MEDICARE, SELFPAY ==
--- NOTE | 2022-08-27 13:00 | DI.CT_ITS ---
Exam(s) CT ABDOMEN PELVIS WO EXAM: CT ABDOMEN PELVIS WO CLINICAL HISTORY: Further eval liver, ascites shown on US,R18.8. TECHNIQUE: Imaging Protocol: Axial computed tomography images with coronal and sagittal reformatted images were created and reviewed CONTRAST MATERIAL: Intravenous: none Oral: None COMPARISON: CT CT CHEST PE CTA from 05/03/2022 CR XR CHEST 2V PA LATERAL from 08/25/2022 FINDINGS: VISUALIZED LUNG BASES: There is a E loculated pleural effusion with gas bubbles over the lateral righ t chest wall.. . This is being service by a drainage catheter which is partially included in the fi eld of view. The thickness of this probable empyema averages 2.5 cm. No pleural effusion on the oppo site side although there are mild increased markings in the left lung base posterior basal segment le ft lower lobe. Are sternotomy wires. The size of the previously present pericardial effusion has significantly decre ased, almost completely resolved.. ABDOMEN: There is moderate amount of Kitty hepatic and perisplenic ascites. LIVER: Enlarged hypodense liver again noted. No discrete focal hepatic lesion evident on this noninfu sed study. GALLBLADDER/BILIARY: Gallstones are noted in the gallbladder lumen and gallbladder neck region. No ob vious gallbladder wall edema nor pericholecystic fluid. CBD is not dilated. PANCREAS: No evidence of pancreatic mass nor dilatation of the pancreatic duct. SPLEEN: Spleen is not enlarged. No obvious intrasplenic lesions. ADRENALS: There are no significant adrenal masses. KIDNEYS:Small benign cyst noted in the superior pole the left kidney which measures 1.5 x 1.4 cm, unc hanged from previous and does not require further workup. No solid lesions in the kidneys. There are a few punctate nonobstructive calculi in the left kidney noted. No obvious calculi in the right kidne y. On the left side there is abnormal streaking around the upper after the ureter but no obvious radi opaque calculus seen within the ureter. There is no radiopaque calculus evident in the lower ureter n or at the UVJ nor within the urinary bladder. Bladder is not distended. Prostate gland is moderately enlarged.. ABDOMINAL AORTA: Calcified but not enlarged. Common iliac arteries are calcified. 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 ABDOMINAL WALL: No evidence of significant anterior abdominal wall nor inguinal hernia. GI: There is no evidence of bowel obstruction, free air, nor abscess. PELVIS: LYMPH NODES: There is no intrapelvic nor inguinal adenopathy. GI: No evidence of appendicitis.Redundant sigmoid with diverticuli but no obvious evidence of acute d iverticulitis. URINARY BLADDER: No calculi nor obvious masses evident REPRODUCTIVE: Moderately enlarged prostate gland. 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 IMPRESSION: 1. There is a loculated pleural effusion along the right chest wall which exhibits thickness of 2.5-3 cm. There appears to be a drainage catheter is in this fluid collection. There is mild infiltrate in the opposite-left lung base. There is no pleural fluid on the left side. 2. There is moderate ascites evident in the abdomen. Hepatomegaly and hepatic steatosis noted. No spl enomegaly. 3. There are multiple tiny calculi in left kidney. There is no hydronephrosis but there is significan t streaking around the upper-mid left ureter, possibly related to prior stone passage although there are no radiopaque calculi evident in the urinary bladder at this time. Other cause for such streaking around the ureter might be related to infectious process or malignancy. Consider CT urogram study. S imilar findings are not seen in the opposite-right kidney. 4. Cholelithiasis noted. No obvious acute cholecystitis. CBD not dilated. 5. Other findings as above RADIATION DOSE DELIVERED: 1,142.12mGy.cm Total DLP DATA REPOSITORY: All CT scans at this facility are submitted to the National Radiology Data Registry (NRDR) Dose Index Registry (DIR) with the [employer] (A[employer]). RADIATION OPTIMIZATION: All CT scans at this facility use at least one of these dose optimization te chniques: automated exposure control; mA and/or kV adjustment per patient size (includes targeted exa ms where dose is matched to clinical indication); or iterative reconstruction.
== END 2022-08-27 14:32 ==
LOC: DI 14:12
PROVIDERS: PCP Nurse Practitioner Family; Visit Provider Nurse Practitioner Family
DX: R18.8 Other ascites (principal)
CPT/HCPCS: 49082; 99213; 74176

== ENCOUNTER 2022-09-03 02:51 | Outpatient (CLI) | payer MEDICARE, SELFPAY ==
[2022-09-03 11:28] LABS: Bilirubin Negative (Negative); Blood Negative (Negative); Clarity Clear (Clear); Glucose Negative (Negative); Ketones Negative (Negative); Leukocyte Esterase Negative (Negative); Nitrite Negative (Negative); pH 5.5 (5-8)
[2022-09-03 11:46] LABS: Bacteria Few HPF (Negative); Casts Negative LPF (Negative); Crystals Negative HPF (Negative); Epithelial Cells Rare HPF (Negative); Mucus Negative (Negative); RBC 0-2 HPF (0-2); WBC 0-2 HPF (0-5)
[2022-09-03 12:09] LABS: ALT 30 U/L (16-63); AST 15 U/L (15-37); Albumin 3.3 g/dL (3.4-5.0); Alkaline Phosphatase 65 U/L (46-116); Anion Gap 6.9 mmol/L (3-11); BUN 51 mg/dL (7-18); Bilirubin, Total 0.8 mg/dL (0.2-1.0); CO2 33.1 mmol/L (21.0-32.0); Calcium 9.1 mg/dL (8.5-10.1); Chloride 100 mmol/L (98-107); Estimated GFR 35.24 (mL/min/1.73m2); Glucose 201 mg/dL (74-106); Potassium 4.1 mmol/L (3.5-5.1); Sodium 140 mmol/L (136-145); Total Protein 8.3 g/dL (6.4-8.2)
[2022-09-03 12:19] LABS: NT-proBNP 1939 pg/mL (<300)
[2022-09-03 13:10] LABS: Ferritin 61 ng/mL (26-388)
[2022-10-15 16:33] LABS: C & S Indicated? No
== END 2022-09-03 02:52 | disposition home or self-care (01) ==
LOC: LBO 02:51
PROVIDERS: PCP Nurse Practitioner Family; Visit Provider Nurse Practitioner Family
DX: K76.0 Fatty (change of) liver, not elsewhere classified (principal); N20.0 Calculus of kidney; N18.9 Chronic kidney disease, unspecified; I50.9 Heart failure, unspecified; R82.998 Other abnormal findings in urine
CPT/HCPCS: 36415; 80053; 81003; 81015; 82728; 83880; 84153; 87086

== ENCOUNTER → 2022-09-09 12:48 | Outpatient (BNVA) | payer MEDICARE, SELFPAY | PROVIDERS: PCP Nurse Practitioner Family; Referring Provider Nurse Practitioner Family; Visit Provider Surgery | DX: J90 Pleural effusion, not elsewhere classified (principal); R22.2 Localized swelling, mass and lump, trunk | CPT/HCPCS: 32552 ==

== ENCOUNTER 2022-09-10 00:34 | Outpatient (CLI) | payer MEDICARE, SELFPAY ==
--- NOTE | 2022-09-10 07:30 | DI.CT_ITS ---
Exam(s) CT CHEST WO EXAM: CT CHEST WO CLINICAL HISTORY: assess pleural pulmonary nodules on CXR,r91.8. TECHNIQUE: Imaging protocol: Axial computed tomography images were obtained and coronal and sagittal reformatted images were created and reviewed. COMPARISON: CR XR CHEST 2V PA LATERAL from 05/28/[address] CHEST WO from 06/05/2022 CR,XR XR PORTABLE CHEST AP from 06/11/2022 CR XR CHEST 2V PA LATERAL from 08/25/2022 FINDINGS: Tracheobronchial tree: Patent where visualized. Pulmonary parenchyma: Centrilobular emphysematous changes are present. Please see below under pleura . Mediastinum and Mishel: No dominant adenopathy or fluid collection. The esophagus is unremarkable. Thyroid gland: Unremarkable. Pleura: There is a small amount of residual extrapleural gas along the right hemithorax. There is no evidence of a left pneumothorax. There is a right pleural effusion which is small. It appears decr eased compared to the chest x-ray from 08/25/2022. There is an associated opacity in the lateral ante rior aspect of the right lower lobe. This may represent atelectasis or pneumonia. Scattered small o pacities are seen in the right middle and right lower lobe. Mild interstitial thickening is seen pre dominantly in the right middle and right lower lobes. Mild dependent atelectatic changes are seen in the left lingula and left lower lobe. Heart: Cardiomegaly. Coronary artery calcification and/or stents are present. No pericardial effusi on. Aorta: Thoracic aorta non-dilated. Atherosclerosis. Upper abdomen: Cholelithiasis. Left nephrolithiasis. Lymph nodes: Within normal limits. Soft tissues: Mild infiltration in the soft tissues along the right chest. No subcutaneous air is se en. No focal fluid collection is seen to suggest an abscess. Bones:Within normal limits for the patient's age. Sternal wires are in place. IMPRESSION: 1. Interval decrease in size of the right pleural effusion with a small persistent effusion present. 2. Scattered opacity seen in the right middle and right lower lobes. These may represent atelectasis or pneumonia. A follow-up chest x-ray/CT scan is recommended to document resolution of these infilt rates and to exclude other etiologies. 3. Small amount of extrapleural air in the right hemithorax. Unexpected findings RADIATION DOSE DELIVERED: 740.18mGy.cm Total DLP 740.18mGy.cm Total DLP DATA REPOSITORY: All CT scans at this facility are submitted to the National Radiology Data Registry (NRDR) Dose Index Registry (DIR) with the [employer] (ACR). RADIATION OPTIMIZATION: All CT scans at this facility use at least one of these dose optimization te chniques: automated exposure control; mA and/or kV adjustment per patient size (includes targeted exa ms where dose is matched to clinical indication); or iterative reconstruction.
== END 2022-09-10 00:54 ==
LOC: DI 00:35
PROVIDERS: PCP Nurse Practitioner Family; Visit Provider Student in an Organized Health Care Education/Training Program
DX: R91.8 Other nonspecific abnormal finding of lung field (principal); J90 Pleural effusion, not elsewhere classified
CPT/HCPCS: 71250

== ENCOUNTER 2022-09-15 02:54 | Outpatient (CLI) | payer MEDICARE, SELFPAY ==
[2022-09-15 11:41] LABS: Iron 56 ug/dL (65-175); Total Iron Binding Capacity 413 ug/dL (250-450); Transferrin Sat 14 % (20-55)
[2022-09-15 11:50] LABS: Anion Gap 8.7 mmol/L (3-11); BUN 47 mg/dL (7-18); CO2 29.3 mmol/L (21.0-32.0); CREATININE 1.9 mg/dL (0.70-1.30); Chloride 101 mmol/L (98-107); Estimated GFR 37.48 (mL/min/1.73m2); Glucose 154 mg/dL (74-106); NT-proBNP 1408 pg/mL (<300); Sodium 139 mmol/L (136-145)
[2022-09-16 08:33] LABS: HBs Antibody, Quant <3.1 mIU/mL (See Note); Hepatitis B Surface Ab Negative (See Note)
[2022-09-16 08:41] LABS: Hepatitis B Surface Ag Negative (Negative)
[2022-09-16 09:17] LABS: Hepatitis C Ab w Rflx HCV PCR Negative (Negative)
[2022-09-16 09:37] LABS: Hep B Core Antibody Negative (Negative)
[2022-09-16 11:14] LABS: Hep A Total Ab w Rflx IgM Negative (Negative)
[2022-09-16 11:32] LABS: PSA, Screening 0.4 ng/mL (<=6.5)
[2022-09-16 15:57] LABS: ANA Interpretation Positive (Negative); ANA Titer Pattern 1:320 Homogeneous
[2022-09-17 13:43] LABS: Albumin 47.1 % (55.8-66.1); Albumin g/dL 3.7 g/dL (3.6-5.2); Total Protein 7.8 g/dL (6.3-8.2)
[2022-09-19 13:29] LABS: Smooth Muscle Ab Screen Negative (Negative)
[2022-09-19 20:34] LABS: Liver/Kidney Microsome Type 1 <5.0 U
== END 2022-09-15 02:55 | disposition home or self-care (01) ==
LOC: LBO 02:54
PROVIDERS: PCP Nurse Practitioner Family; Visit Provider Nurse Practitioner Family
DX: Z11.59 Encounter for screening for other viral diseases (principal); K76.0 Fatty (change of) liver, not elsewhere classified; R79.89 Other specified abnormal findings of blood chemistry; N40.0 Benign prostatic hyperplasia without lower urinary tract symptoms; I50.9 Heart failure, unspecified; M25.40 Effusion, unspecified joint
CPT/HCPCS: 36415; 80048; 84153; 86704; 86706; 86709; 86803; 87340; 83540; 83550; 83880; 84165; 86038; 86255

== ENCOUNTER 2022-09-17 12:26 | Outpatient (REF) | payer MEDICARE, SELFPAY ==
--- NOTE | 2022-09-17 12:15 | PAPNONF_PTH ---
PATIENT: Demetrio Artis LOC: [facility] U#:[id number] AGE/SX: 71/M ROOM: RE09/17/[address]: Martha Valera APRN : 1950 BED: DIS: 09/17/2022 SPEC #: [id number] RECD: 09/18/22 13:43 STATUS: TUCKER REDavid #: [id number] KASSIE: 09/17/22 12:[address]: Martha Valera [facility] Cytology RECD BY: Mitali Regan Tissues: 1 - BODY FLUID CYTO(SPUTUM/URINE)[facility] Procedures: BODY FLUID CYTO(URINE/SPUTUM) Comments: [id number] (TV = 70 ml, 30 ml CYTOLYT ADDED) (REFRIGERATED) (CYTOLYT ADDED AT 10:25 am ON 09/18/2022)
== END 2022-09-17 12:27 | disposition home or self-care (01) ==
LOC: LBN 12:26
PROVIDERS: PCP Nurse Practitioner Family; Visit Provider Nurse Practitioner Family
DX: N28.89 Other specified disorders of kidney and ureter (principal)
CPT/HCPCS: 88104

== ENCOUNTER → 2022-09-22 12:53 | Outpatient (BNVA) | payer MEDICARE, SELFPAY | PROVIDERS: PCP Nurse Practitioner Family; Referring Provider Nurse Practitioner Family; Visit Provider Internal Medicine Cardiovascular Disease | DX: I50.9 Heart failure, unspecified (principal); I25.10 Atherosclerotic heart disease of native coronary artery without angina pectoris; I48.21 Permanent atrial fibrillation; Z79.01 Long term (current) use of anticoagulants | CPT/HCPCS: 99214 ==

== ENCOUNTER → 2022-12-08 00:47 | Outpatient (CLI) | payer MEDICARE, SELFPAY ==
--- NOTE | 2022-12-08 08:00 | DI.CT_ITS ---
Exam(s) CT ABDOMEN PELVIS WO EXAM: CT ABDOMEN PELVIS WO CLINICAL HISTORY: f/u left ureteral findings to look for any change,N20.0. TECHNIQUE: Imaging Protocol: Axial computed tomography images with coronal and sagittal reformatted images were created and reviewed. COMPARISON: CT CT ABDOMEN PELVIS WO from 08/27/[address] CHEST WO from 09/10/2022 FINDINGS: ABDOMEN: Lung Bases: Coronary artery calcification is present. Right sided the left lung is clear. Pleural a nd parenchymal scarring is present. There also is a small right pleural effusion. Liver: Normal density. No measurable mass. Gallbladder and biliary tract: Cholelithiasis. No biliary ductal dilatation. Pancreas: Normal density, no abnormal calcifications or inflammatory process. Spleen: Normal. Kidneys: Normal size, contour and axis.Nonobstructing stones versus vascular calcifications are seen bilaterally. There is a cyst in the superior pole of the left kidney. No follow-up is recommended. The stranding around the left ureter has resolved. There is no hydronephrosis. Adrenal glands: No mass is seen. Lymph nodes: Stable enlarged lymph nodes in the pelvis. Abdominal Aorta: Abdominal portion non-dilated. Atherosclerosis. PELVIS: Bladder:Symmetric distention, no gross wall thickening. Bowel: There is a large amount of stool in the rectum without rectal wall thickening there is diverti culosis of the colon but no evidence of acute diverticulitis. There is a duodenal diverticulum adjac ent to the pancreatic head. There is no evidence of bowel obstruction. No evidence of appendicitis. Peritoneal cavity: No ascites, collection or mesenteric inflammatory response. No free air. Reproductive organs: Unremarkable as visualized. Bones: Within normal limits. There are marked degenerative changes seen in the left hip. There is mi ld left acetabuli protrusio. Soft Tissues: Within normal limits. IMPRESSION: 1. Resolution of the stranding around the left ureter. 2. Large amount of stool in the rectum without rectal wall thickening. Fecal impaction should be con sidered. 3. Colonic diverticulosis without evidence of acute diverticulitis. 4. Right pleural and parenchymal pulmonary scarring and small right pleural effusion. 5. Cholelithiasis without evidence of biliary ductal dilatation. 6. Marked degenerative changes of the left hip with left acetabuli protrusio. Unexpected findings RADIATION DOSE DELIVERED: 1,200.95mGy.cm Total DLP DATA REPOSITORY: All CT scans at this facility are submitted to the National Radiology Data Registry (NRDR) Dose Index Registry (DIR) with the [employer] (A[employer]). RADIATION OPTIMIZATION: All CT scans at this facility use at least one of these dose optimization te chniques: automated exposure control; mA and/or kV adjustment per patient size (includes targeted exa ms where dose is matched to clinical indication); or iterative reconstruction.
== END ==
PROVIDERS: PCP Nurse Practitioner Family; Visit Provider Nurse Practitioner Family
DX: K57.10 Diverticulosis of small intestine without perforation or abscess without bleeding; R91.8 Other nonspecific abnormal finding of lung field; K80.50 Calculus of bile duct without cholangitis or cholecystitis without obstruction; M16.12 Unilateral primary osteoarthritis, left hip
CPT/HCPCS: 74176

== ENCOUNTER 2023-01-22 18:53 | Outpatient (REF) | payer MEDICARE, SELFPAY | END 2023-01-22 18:54 | disposition home or self-care (01) | LOC: LBN 18:53 | PROVIDERS: PCP Family Medicine; Visit Provider Family Medicine | DX: I87.2 Venous insufficiency (chronic) (peripheral) (principal) | CPT/HCPCS: 87070; 87205 ==

== ENCOUNTER → 2023-01-23 08:44 | Outpatient (BNVA) | payer MEDICARE, SELFPAY | PROVIDERS: PCP Family Medicine; Referring Provider Family Medicine; Visit Provider Internal Medicine Cardiovascular Disease | DX: I42.9 Cardiomyopathy, unspecified (principal); I25.810 Atherosclerosis of coronary artery bypass graft(s) without angina pectoris; I50.22 Chronic systolic (congestive) heart failure; I87.2 Venous insufficiency (chronic) (peripheral) | CPT/HCPCS: 99213 ==

== ENCOUNTER 2023-02-13 15:30 | Outpatient (REF) | payer MEDICARE, SELFPAY ==
[2023-02-13 13:20] LABS: Abs Immature Grans 0.03 10^3/uL (0.0-0.06); Absolute Basophil Count 0.05 10^3/uL (0.0-0.2); Absolute Eosinophil Count 0.45 10^3/uL (0.0-0.7); Absolute Lymphocyte Count 0.87 10^3/uL (1.2-3.4); Absolute Monocyte Count 0.66 10^3/uL (0.1-0.8); Absolute Neutrophil Count 5.35 10^3/uL (1.2-6.7); Basophils % 0.7; Eosinophils % 6.1; HCT 34.1 % (40.0-50.0); HGB 10.8 g/dL (13.5-17.5); Immature Grans % 0.4; Lymphocytes % 11.7; MCH 30.6 pg (27.0-33.0); MCHC 31.7 % (32.0-36.0); MCV 97 fL (80-95); MPV 8.9 fL (8.0-11.0); Monocytes % 8.9; Neutrophils % 72.2; Platelet Count 306 10^3/uL (130-400); RBC 3.53 10^6/uL (4.36-5.78); RDW 15.4 % (11.8-14.1); WBC 7.41 10^3/uL (4.4-10.8)
[2023-02-13 13:44] LABS: Iron 60 ug/dL (65-175); Total Iron Binding Capacity 418 ug/dL (250-450); Transferrin Sat 14 % (20-55)
[2023-02-13 13:52] LABS: TSH (W/Ref FT4) 11.44 uIU/mL (0.36-3.74)
[2023-02-13 13:57] LABS: ALT 23 U/L (16-63); AST 18 U/L (15-37); Albumin 3.8 g/dL (3.4-5.0); Alkaline Phosphatase 68 U/L (46-116); Anion Gap 11.5 mmol/L (3-11); BUN 42 mg/dL (7-18); CO2 26.5 mmol/L (21.0-32.0); Calcium 9.5 mg/dL (8.5-10.1); Chloride 101 mmol/L (98-107); Estimated GFR 35.02 (mL/min/1.73m2); Ferritin 30 ng/mL (26-388); Glucose 137 mg/dL (74-106); NT-proBNP 1510 pg/mL (<300); Potassium 4.8 mmol/L (3.5-5.1); Sodium 139 mmol/L (136-145); Total Protein 8.4 g/dL (6.4-8.2)
[2023-02-13 14:09] LABS: FREE T4 1.01 ng/dL (0.76-1.46)
== END 2023-02-13 15:31 | disposition home or self-care (01) ==
LOC: NCHCN 15:30
PROVIDERS: Student in an Organized Health Care Education/Training Program; PCP Family Medicine; Visit Provider Nurse Practitioner Family
DX: D50.9 Iron deficiency anemia, unspecified (principal); I50.9 Heart failure, unspecified; E11.9 Type 2 diabetes mellitus without complications; I10 Essential (primary) hypertension; I50.22 Chronic systolic (congestive) heart failure; N18.9 Chronic kidney disease, unspecified; E03.9 Hypothyroidism, unspecified
CPT/HCPCS: 80053; 82728; 83540; 83550; 83880; 84439; 84443; 85025

== ENCOUNTER → 2023-03-04 14:27 | Outpatient (BNVA) | payer MEDICARE, SELFPAY | PROVIDERS: PCP Family Medicine; Referring Provider Nurse Practitioner Family; Visit Provider Physician Assistant Surgical | DX: J43.9 Emphysema, unspecified (principal); J90 Pleural effusion, not elsewhere classified; J96.92 Respiratory failure, unspecified with hypercapnia; Z87.891 Personal history of nicotine dependence | CPT/HCPCS: 99214 ==

== ENCOUNTER 2023-03-12 15:39 | Outpatient (REF) | payer MEDICARE, SELFPAY | END 2023-03-12 15:40 | disposition home or self-care (01) | LOC: LBN 15:39 | PROVIDERS: PCP Family Medicine; Referring Provider Family Medicine; Visit Provider Family Medicine | DX: L03.115 Cellulitis of right lower limb (principal) | CPT/HCPCS: 87077; 87070; 87186; 87205 ==

== ENCOUNTER 2023-03-13 16:19 | Outpatient (REF) | payer MEDICARE, SELFPAY ==
[2023-03-13 12:55] LABS: Anion Gap 12.5 mmol/L (3-11); BUN 37 mg/dL (7-18); CO2 24.5 mmol/L (21.0-32.0); CREATININE 2.2 mg/dL (0.70-1.30); Calcium 9.4 mg/dL (8.5-10.1); Chloride 99 mmol/L (98-107); Estimated GFR 31.24 (mL/min/1.73m2); Glucose 115 mg/dL (74-106); Potassium 4.7 mmol/L (3.5-5.1); Sodium 136 mmol/L (136-145)
== END 2023-03-13 16:20 | disposition home or self-care (01) ==
LOC: LBN 16:19
PROVIDERS: PCP Family Medicine; Visit Provider Family Medicine
DX: I50.22 Chronic systolic (congestive) heart failure (principal); I13.0 Hypertensive heart and chronic kidney disease with heart failure and stage 1 through stage 4 chronic kidney disease, or unspecified chronic kidney disease
CPT/HCPCS: 80048

== ENCOUNTER 2023-03-27 16:48 | Outpatient (REF) | payer MEDICARE, SELFPAY | END 2023-03-27 16:49 | disposition home or self-care (01) | LOC: LBN 16:48 | PROVIDERS: PCP Family Medicine; Visit Provider Family Medicine | DX: S81.802D Unspecified open wound, left lower leg, subsequent encounter (principal); I87.2 Venous insufficiency (chronic) (peripheral); B96.5 Pseudomonas (aeruginosa) (mallei) (pseudomallei) as the cause of diseases classified elsewhere; L98.8 Other specified disorders of the skin and subcutaneous tissue | CPT/HCPCS: 87070 ==

== ENCOUNTER 2023-04-17 15:39 | Outpatient (REF) | payer MEDICARE, SELFPAY | END 2023-04-17 15:40 | disposition home or self-care (01) | LOC: LBN 15:39 | PROVIDERS: PCP Family Medicine; Visit Provider Family Medicine | DX: L97.822 Non-pressure chronic ulcer of other part of left lower leg with fat layer exposed (principal) | CPT/HCPCS: 87077; 87070; 87186; 87205 ==

== ENCOUNTER → 2023-05-18 14:54 | Outpatient (BNVA) | payer MEDICARE, SELFPAY | PROVIDERS: PCP Family Medicine; Referring Provider Family Medicine; Visit Provider Podiatrist | DX: L98.9 Disorder of the skin and subcutaneous tissue, unspecified (principal); I87.2 Venous insufficiency (chronic) (peripheral); R60.0 Localized edema; I73.9 Peripheral vascular disease, unspecified; I89.0 Lymphedema, not elsewhere classified; I50.9 Heart failure, unspecified; N18.9 Chronic kidney disease, unspecified | CPT/HCPCS: 99215; G2212 ==

== ENCOUNTER 2023-05-18 18:27 | Outpatient (REF) | payer MEDICARE, SELFPAY | END 2023-05-18 18:28 | disposition home or self-care (01) | LOC: LBN 18:27 | PROVIDERS: PCP Family Medicine; Visit Provider Podiatrist | DX: R60.9 Edema, unspecified (principal); I89.0 Lymphedema, not elsewhere classified; I87.2 Venous insufficiency (chronic) (peripheral); I73.9 Peripheral vascular disease, unspecified | CPT/HCPCS: 87077; 87102; 87206; 87070; 87075; 87186; 87205 ==

== ENCOUNTER → 2023-06-01 11:18 | Outpatient (BNVA) | payer MEDICARE, SELFPAY | PROVIDERS: PCP Family Medicine; Visit Provider Internal Medicine Cardiovascular Disease | DX: I87.2 Venous insufficiency (chronic) (peripheral) (principal); I42.9 Cardiomyopathy, unspecified; I48.21 Permanent atrial fibrillation; Z95.1 Presence of aortocoronary bypass graft; I25.10 Atherosclerotic heart disease of native coronary artery without angina pectoris; I50.9 Heart failure, unspecified | CPT/HCPCS: 99213 ==

== ENCOUNTER → 2023-06-01 13:03 | Outpatient (BNVA) | payer MEDICARE, SELFPAY | PROVIDERS: PCP Family Medicine; Referring Provider Family Medicine; Visit Provider Podiatrist | DX: L98.9 Disorder of the skin and subcutaneous tissue, unspecified; I87.2 Venous insufficiency (chronic) (peripheral); R60.9 Edema, unspecified; I73.9 Peripheral vascular disease, unspecified; I89.0 Lymphedema, not elsewhere classified | CPT/HCPCS: 29580; 29581; 99215; 29850 ==

== ENCOUNTER 2023-06-05 18:38 | Inpatient (IN) | payer MEDICARE, SELFPAY ==
[2023-06-05] VITALS (53 sets, daily range): BP systolic 90–157; BP diastolic 40–101; PULSE 105–137; RESP 15–31; TEMP 36.6–37.3; O2SAT 80–97
--- NOTE | 2023-06-05 19:00 | RT.EKG_ITS ---
APPROVED REPORT Exam: Resting ECG Reason for Exam: BP issues Patient Location: E HR:113 bpm ECG Measurements Heart Rate 113 AXIS NC 154 P 99 QRSd 148 QRS -136 QT 407 T -1 QTc 558 Conclusion Sinus tachycardia...rate> 99 Right bundle branch block...QRSd>120, terminal axis(90,270) Probable anterior infarct, age indeterminate...Q >35mS, T neg, V2-V5
--- NOTE | 2023-06-05 19:30 | ED.GENADUL_ITS ---
Discharge Plan Discharge Details Chief Complaint: GenMedical Primary Care Provider: Carlos Kramer ED Provider: Yari Herron Home Meds and New Rx's Prescriptions: No Action albuterol sulfate 90 mcg/actuation HFA aerosol inhaler 2 puff inhalation QID PRN (Reason: SOB) Qty: 18 12RF Eliquis 5 mg tablet 5 mg PO BID Qty: 180 3RF Hold Instructions: Adverse Reaction (DME) Blood Glucose Test Strip See Rx Instructions .ROUTE .MEDSUPPLY Qty: 100 3RF Rx Instructions: As directed to check blood glucose daily. No insulin. Dispense covered brand. (DME) lancets Misc See Rx Instructions .ROUTE .MEDSUPPLY Qty: 100 3RF Rx Instructions: As directed to check blood glucose daily. No insulin. Dispense covered brand. atorvastatin 80 mg tablet 80 mg PO DAILY Qty: 90 3RF spironolactone 25 mg tablet 25 mg PO DAILY Qty: 90 3RF (DME) Circaids See Rx Instructions .Route .MEDSUPPLY Qty: 1 0RF Rx Instructions: As directed levofloxacin 250 mg tablet 750 mg PO .COMPLEX 30 Days Qty: 45 0RF Rx Instructions: Give 750mg po Q 48 hours renally dosed tramadol 50 mg tablet 50 mg PO Q8H PRN (Reason: pain) Qty: 21 0RF (DME) comp.stocking,knee,long,medium Misc See Rx Instructions .ROUTE .MEDSUPPLY Qty: 2 0RF Rx Instructions: As directed. Please measure patient for appropriate size. fluticasone propionate [Flovent HFA] 110 mcg/actuation HFA aerosol inhaler 2 puff inhalation BID Qty: 12 10RF Stiolto Respimat 2.5-2.5 mcg/actuation mist 2 puff inhalation DAILY Qty: 4 12RF metformin 500 mg tablet 500 mg PO BID Qty: 180 3RF glipizide 5 mg tablet extended release 24hr 5 mg PO DAILY Qty: 90 3RF metoprolol succinate 50 mg tablet extended release 24 hr 50 mg PO BID gabapentin 100 mg capsule 100 mg PO BID nystatin 100,000 unit/gram powder 1 applic topical BID Qty: 30 0RF Minerin Creme Cream 1 applic topical .COMPLEX Rx Instructions: 1 applic topically Q4 hours prn; torsemide 20 mg tablet 20 mg PO DAILY Rx Instructions: Can have an additional 20mg daily for fluid. (DME) blood-glucose meter [OneTouch UltraMini] Kit See Rx Instructions .ROUTE .MEDSUPPLY Qty: 1 0RF Rx Instructions: As directed acetaminophen 500 mg Capsule 1,000 mg PO Q6H PRN HPI General Date/Time Provider Initiated Documentation: 06/05/23 18:40 . HPI Narrative: Demetrio is a 72-year-old male with history of peripheral edema, CHF, COPD, T2DM, A-fib on anticoagulation, and DE with CABG who presents to the emergency department for evaluation of hypotension. He reports that his blood pressure was taken today by his home health nurse, was noted to be low (80s/40s). He reports that his blood pressure has been pretty low recently, with systolic in the low 100s. He does admit he has been feeling fatigued/lightheaded, but says this is been ongoing for weeks with no acute change. He denies recent fever/chills, headache, vision changes, sore throat, cough, chest pain, change in baseline shortness of breath, change in p.o. intake, nausea/vomiting, abdominal pain, change in bowel or bladder function, black/tarry stools, or change in pedal edema/worsening cellulitis. He is currently being treated for p eripheral edema with cellulitis (currently on levaquin). He does take torsemide 40 mg BID, no recent dose changes. He did recently decrease his metoprolol dose (from 100 mg to 50 mg daily). Related Data Home Medications Medication Instructions Recorded Confirmed blood-glucose meter (OneTouch #1 ea 11/02/19 06/05/23 UltraMini kit) comp.stocking,knee,long,medium #2 units 06/01/20 06/01/23 acetaminophen 500 mg capsule 1,000 mg PO Q6H PRN 05/13/22 06/05/23 apixaban 5 mg tablet (Eliquis) 5 mg PO BID #180 tabs 05/15/22 06/05/23 blood sugar diagnostic (Blood #100 ea 05/15/22 06/05/23 Glucose Test strips) lancets #100 ea 05/15/22 06/05/23 albuterol sulfate 90 mcg/actuation 2 puff inhalation QID PRN SOB #18 06/02/22 06/05/23 aerosol inhaler grams atorvastatin 80 mg tablet 80 mg PO DAILY #90 tabs 08/27/22 06/05/23 fluticasone propionate 110 2 puff inhalation BID #12 grams 09/05/22 06/05/23 mcg/actuation HFA aerosol inhaler (Flovent HFA) spironolactone 25 mg tablet 25 mg PO DAILY #90 tabs 10/16/22 06/05/23 metformin 500 mg tablet 500 mg PO BID #180 tabs 01/26/23 06/05/23 glipizide 5 mg tablet, extended 5 mg PO DAILY #90 tab-caps 02/09/23 06/05/23 release 24 hr tiotropium 2.5 mcg-olodaterol 2.5 2 puff inhalation DAILY #4 grams 03/04/23 06/05/23 mcg/actuation mist for inhalation (Stiolto Respimat) Circaids #1 ea 04/03/23 06/01/23 gabapentin 100 mg capsule 100 mg PO BID 05/15/23 06/05/23 lanolin alcohols-mineral 1 applic topical .COMPLEX 05/15/23 06/05/23 oil-w.petrolatum-ceresin topical cream (Minerin Creme topical) metoprolol succinate 50 mg 50 mg PO BID 05/15/23 06/05/23 tablet,extended release 24 hr nystatin 100,000 unit/gram topical 1 applic topical BID #30 grams 05/15/23 06/05/23 powder torsemide 20 mg tablet 20 mg PO DAILY 05/15/23 06/05/23 levofloxacin 250 mg tablet 750 mg (3 x 250 mg) PO .COMPLEX 30 06/01/23 06/05/23 days #45 tabs tramadol 50 mg tablet 50 mg PO Q8H PRN pain #21 tabs 06/01/23 06/05/23 Previous Rx's Medication Instructions Recorded blood-glucose meter (OneTouch #1 ea 11/02/19 UltraMini kit) comp.stocking,knee,long,medium #2 units 06/01/20 apixaban 5 mg tablet (Eliquis) 5 mg PO BID #180 tabs 05/15/22 blood sugar diagnostic (Blood #100 ea 05/15/22 Glucose Test strips) lancets #100 ea 05/15/22 albuterol sulfate 90 mcg/actuation 2 puff inhalation QID PRN SOB #18 06/02/22 aerosol inhaler grams atorvastatin 80 mg tablet 80 mg PO DAILY #90 tabs 08/27/22 fluticasone propionate 110 2 puff inhalation BID #12 grams 09/05/22 mcg/actuation HFA aerosol inhaler (Flovent HFA) spironolactone 25 mg tablet 25 mg PO DAILY #90 tabs 10/16/22 metformin 500 mg tablet 500 mg PO BID #180 tabs 01/26/23 glipizide 5 mg tablet, extended 5 mg PO DAILY #90 tab-caps 02/09/23 release 24 hr tiotropium 2.5 mcg-olodaterol 2.5 2 puff inhalation DAILY #4 grams 03/04/23 mcg/actuation mist for inhalation (Stiolto Respimat) Circaids #1 ea 04/03/23 nystatin 100,000 unit/gram topical 1 applic topical BID #30 grams 05/15/23 powder levofloxacin 250 mg tablet 750 mg (3 x 250 mg) PO .COMPLEX 30 06/01/23 days #45 tabs tramadol 50 mg tablet 50 mg PO Q8H PRN pain #21 tabs 06/01/23 Allergies Allergy/AdvReac Type Severity Reaction Status Date / Time shellfish derived Allergy Intermediate Hives Verified 06/05/23 18:46 house dust Allergy Mild Other (See Verified 06/05/23 18:46 Comment) hay fever Allergy Mild runny nose Uncoded 06/05/23 18:46 and cough General Stated Complaint: GenMedical MONY: 3 Review of Systems Narrative: see HPI Exam Const General: cooperative, healthy appearing and comfortable Nutritional Appearance: average body habitus [facility] Head: normal to inspection Ears: hearing grossly normal bilaterally Mouth: oral mucosae normal and moist mucous membranes Throat: posterior oropharynx normal Resp Effort & Inspection: normal respiratory effort and able to speak in complete sentences Auscultation: diminished lung sounds Cardio Jugular venous pressure: no JVD Rate: tachycardic Rhythm: regular rhythm GI Inspection: normal to inspection Palpation: soft Extrem General: edema Laterality: bilateral Course Vital Signs Vital signs: Vital Signs Temperature 36.6 C 06/05/23 18:42 Pulse 112 H 06/05/23 18:42 Respiratory Rate 18 06/05/23 18:42 Pulse Oximetry 96 06/05/23 18:42 Temperature 36.6 C 06/05/23 18:42 Temperature Source Tympanic 06/05/23 18:42 Pulse 112 H 06/05/23 18:42 Respiratory Rate 18 06/05/23 19:02 Respiratory Effort Normal 06/05/23 19:02 Respiratory Depth Normal 06/05/23 19:02 Respiratory Pattern Normal 06/05/23 19:02 Blood Pressure Position Sitting 06/05/23 18:42 Pulse Oximetry 96 06/05/23 18:42 Oxygen Delivery Method Room Air 06/05/23 18:42 Oxygen Flow Rate 0 06/05/23 18:42 Pain Level 7 06/05/23 18:42 Comment Feet bilaterally 06/05/23 18:42 Medical Decision Making Demetrio is a 72-year-old male with history of peripheral edema, CHF, COPD, T2DM, A-fib on anticoagulation, and DE with CABG who presents to the emergency department for evaluation of hypotension. He reports that his blood pressure was taken today by his home health nurse, was noted to be low (80s/40s). He reports that his blood pressure has been pretty low recently, with systolic in the low 100s. He does admit he has been feeling fatigued/lightheaded, but says this is been ongoing for weeks with no acute change. He denies recent fever/chills, headache, vision changes, sore throat, cough, chest pain, change in baseline shortness of breath, change in p.o. intake, nausea/vomiting, abdominal pain, change in bowel or bladder function, black/tarry stools, or change in pedal edema/worsening cellulitis. He is currently being treated for peripheral edema with cellulitis (currently on levaquin). He does take torsemide 40 mg BID, no recent dose changes. He did recently decrease his metoprolol dose (from 100 mg to 50 mg daily). Physical exam reassuring. Easy work of breathing, diminished lung sounds throughout all lung martin. Normal heart sounds, tachycardia noted. No JVD. Abdomen is soft, nondistended, nontender to palpation. Slightly pale conjunctiva. MMM. DDx includes but is not limited to occult infection such as pneumonia or UTI, hypovolemia, electrolyte imbalance, less likely ACS I independently interpreted the following tests: EKG (Sinus tachycardia, rate 113. Right bundle barbara block. No changes consistent with acute ischemia.) CBC notable for mild leukocytosis, white cell count 11.44. H&H 9.3 and 31.0. CMP remarkable for creatinine elevated at 3.3 with BUN 85, consistent with dehydration. Potassium 5.4 with magnesium 2.5. Troponin slightly elevated at 52, likely demand ischemia in the absence of EKG changes, however will obtain 3- hour troponin. Chest x-ray remarkable for infiltrates in the left upper lobe and likely in the right base as well. Patient to be admitted for LORETO and healthcare-associated pneumonia, as he recently was hospitalized at [facility] for cellulitis a week and a half ago. He denies history of MRSA, however does have history of Pseudomonas infection. Discussed case with Dr. Henrandez, hospitalist. Patient to be treated with Zosyn and azithromycin. While in the emergency department regular he rested comfortably with at bedside. No acute concerns or complaints. Blood pressure did normalize during ED stay, though tachycardia with heart rate in the 110s persisted. Reviewed plan for admission with patient and his , they are agreeable with plan of care. Quality:SDMO Health Related Social Needs: No Data to Display PFSH All Active Problems (Updated 06/05/23 @ 21:33 by Raymond Hernandez) Hyperkalemia (Acute) Multifocal pneumonia (Acute) Lymphedema (Acute) PVD (peripheral vascular disease) (Chronic) Edema (Acute) Venous (peripheral) insufficiency (Acute) Erythematous rash (Acute) Chronic venous stasis dermatitis (Acute) Skin tear of left lower leg without complication (Acute) left forefoot, just distal to ankle fold Edema of lower extremity (Acute) presumed venous insuff; PAD? Lymphedema? Weeks TBD Tinea (Acute) NAFLD (nonalcoholic fatty liver disease) (Acute) [facility] [place] [place] Gastro Note 12/25/22 Iron deficiency anemia (Acute) Pleural nodule (Acute) Renal calculus, left (Acute) Hepatic steatosis (Acute) Ascites (Acute) Pleural effusion (Acute 06/26/22) Cardiomyopathy (Acute) CAD (coronary artery disease) (Chronic) Corns and callosities (Acute) Nail dystrophy (Acute) Hypercapnic respiratory failure (Acute) Heart failure, systolic, chronic (Acute) Recurrent infections (Chronic) H/o recurrent leg cellulitis and sepsis CHF (congestive heart failure) (Acute) 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 2 diabetes mellitus (Chronic ~10/2019) Atrial fibrillation (Chronic) Psoriasis (Chronic) Tinea pedis (Acute 10/29/20) [facility] [place] [place] Inf Disease Vitamin B12 deficiency (Chronic) Stasis dermatitis of both legs (Acute) CKD (chronic kidney disease) (Acute) CKD3, Cr 1.4-1.9 [id number] Essential hypertension (Chronic) Type 2 diabetes mellitus (Chronic) Venous insufficiency (Chronic) COPD (chronic obstructive pulmonary disease) with emphysema (Chronic) Obesity (Chronic) Hyperlipidemia, unspecified (Chronic) Tobacco use disorder (Chronic) Medical History Palliative care patient NSTEMI (non-ST elevated myocardial infarction) Sepsis syndrome Hypothyroidism Surgical History History of abdominal paracentesis (~08/27/22) 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 at age 79. Essential hypertension Myocardial infarction Maternal Aunt Neoplasm Adnexa NOS Maternal Grandmother Neoplasm Adnexa NOS Mother , CVA & PNA at age 81. Essential hypertension Stroke Paternal Grandfather Myocardial infarction Social History Smoking/Tobacco Use Status: Former Tobacco Use Smoking risk assessment performed?: Yes Alcohol Intake: current Alcohol Intake frequency: holidays/special occasions only Drug use: Never Substance use type: does not use Adopted: No Caregiver/Support person: No Household members: spouse, family and children Number of Children: 2 number of grandchildren: 4 Communication Needs: None Education Level: college Details: Some College Do you need help understanding health information?: Rarely Pets and animals: No Sexually active: No Do you think of yourself as: straight/heterosexual Current gender identity: male What is your relationship status?: How often do you talk on the phone with friends or family?: once per week How often do you get together with friends or relatives?: once per week Do you belong to any clubs or organized social groups?: no Panel score (0-1 are the most socially isolated patients): 1 What type of physical activity do you participate in: resistance training Duration: < 15 minutes/day Frequency: 1-2 times per week Chantell/Druze: Jehovah'S Witness Special chantell needs: No Seatbelt use: always Drive 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
--- NOTE | 2023-06-05 19:36 | DI.RAD_ITS ---
Exam(s) XR CHEST 2V PA LATERAL EXAM: XR CHEST 2V PA LATERAL CLINICAL HISTORY: hypotension, r/o PNA TECHNIQUE: 2D digital imaging was performed. Two views. COMPARISON: CR XR CHEST 2V PA LATERAL from 08/25/[address] CHEST WO from 09/10/2022 FINDINGS: HEART: Mildly enlarged. Status post CABG. Aorta: Not dilated. PULMONARY VASCULATURE: Normal. LUNGS: Bilateral lower lobe infiltrates, left greater than right. PLEURAL SPACE: Improvement in previously noted right pleural effusion. Tiny bilateral pleural effusi ons. Minimal blunting may represent scarring. BONE:Sternal wires. Soft tissues: Unremarkable. IMPRESSION: Bibasilar pneumonia, left greater than right. DATA REPOSITORY: RADIATION DOSE DELIVERED:
[2023-06-05 19:52] LABS: Lactate 1.6 mmol/L (0.6-1.4)
[2023-06-05 19:53] LABS: Absolute Basophil Count 0.07 10^3/uL (0.0-0.2); Absolute Eosinophil Count 0.25 10^3/uL (0.0-0.7); Absolute Lymphocyte Count 0.51 10^3/uL (1.2-3.4); Absolute Neutrophil Count 9.66 10^3/uL (1.2-6.7); Basophils % 0.6; Eosinophils % 2.2; HGB 9.3 g/dL (13.5-17.5); Immature Grans % 1.7; Lymphocytes % 4.5; MCH 26.6 pg (27.0-33.0); MCV 89 fL (80-95); MPV 8.5 fL (8.0-11.0); Monocytes % 6.6; Neutrophils % 84.4; Platelet Count 270 10^3/uL (130-400); RDW 18.4 % (11.8-14.1); RDW-SD 56.8 fL; WBC 11.44 10^3/uL (4.4-10.8)
[2023-06-05 19:54] LABS: Absolute Monocyte Count 0.76 10^3/uL (0.1-0.8)
[2023-06-05 20:06] LABS: Magnesium 2.5 mg/dL (1.8-2.4)
[2023-06-05 20:12] LABS: ALT 31 U/L (16-63); AST 22 U/L (15-37); Albumin 2.8 g/dL (3.4-5.0); Alkaline Phosphatase 104 U/L (46-116); Anion Gap 9.1 mmol/L (3-11); Bilirubin, Total 0.7 mg/dL (0.2-1.0); CO2 25.9 mmol/L (21.0-32.0); CREATININE 3.3 mg/dL (0.70-1.30); Calcium 9.1 mg/dL (8.5-10.1); Chloride 99 mmol/L (98-107); Glucose 125 mg/dL (74-106); Potassium 5.4 mmol/L (3.5-5.1); Sodium 134 mmol/L (136-145); Total Protein 7.9 g/dL (6.4-8.2); Troponin I 52 ng/L (< or =60)
[2023-06-05 20:14] LABS: BUN 85 mg/dL (7-18)
--- NOTE | 2023-06-05 20:23 | DI.VRAD_ITS ---
PROCEDURE INFORMATION: Exam: XR Chest Exam date and time: 06/05/2023 8:10 PM Age: 72 years old Clinical indication: Other: Hypotension; Additional info: Hypotension, R/O pna TECHNIQUE: Imaging protocol: Radiologic exam of the chest. Views: 2 views. COMPARISON: CT CHEST WO 09/10/2022 11:28 AM FINDINGS: Lungs: Hyperinflation consistent with underlying emphysema/COPD. Left basilar segmental consolidation consistent with infiltrate. This appears to be within the lingular segment of the left upper lobe on the lateral view. There is also mild subsegmental patchy consolidation of the right lung base which could represent infiltrate or atelectasis. Pleural spaces: Blunted costophrenic angles bilaterally suggesting mild pleural effusions. Heart/Mediastinum: Normal heart size. Previous open-heart surgery with median sternotomy wires noted. Bones/joints: Degenerative thoracic spine. IMPRESSION: 1. Left lung infiltrate which appears to be a segmental left upper lobe lingular infiltrate. 2. Right lung base subsegmental infiltrates versus atelectasis. 3. Minor bilateral pleural effusions. 4. Previous open-heart surgery. No cardiac enlargement of significance. 5. Degenerative thoracic spine. Dictated and Authenticated by: Morro Roth MD. Ordering:LAMAR Greenberg MD
[2023-06-05] MEDS: Normal Saline 250 ML IV (20:27)
[2023-06-05 20:32] LABS: COVID-19 PCR Negative (Negative); Influenza A PCR Negative (Negative); Influenza B PCR Negative (Negative); RSV PCR Negative (Negative)
[2023-06-05 20:34] LABS: Source NASOPHARYNX
[2023-06-05 21:11] LABS: Bilirubin Negative (Negative); Blood Moderate (Negative); Clarity Sl Cloudy (Clear); Glucose Negative (Negative); Ketones Negative (Negative); Leukocyte Esterase Small (Negative); Nitrite Negative (Negative); Specific Gravity 1.015 (1.005-1.025); Urobilinogen 0.2 mg/dL (Up to 0.2); pH 5.5 (5-8)
[2023-06-05 21:16] LABS: Bacteria Few HPF (Negative); C & S Indicated? Yes; Casts Negative LPF (Negative); Crystals Negative HPF (Negative); Epithelial Cells Few HPF (Negative); Mucus Negative (Negative)
--- NOTE | 2023-06-05 21:18 | HPE_ITS ---
Date of service: 06/05/23 Time of Service: 22:35 Assessment and Plan Assessment and plan (1) Multifocal pneumonia: Status: Acute Assessment and plan: High risk given multifocal, medically complicated with low GFR, CAD, type 2 DM. He should be managed inpatient. Given recent pseudomonal infection of skin, we should cover this. We decided on Pip/Tazo. No documented h/o MRSA, will complete regimen with azithro to cover community acquired pneumonia (2) Sepsis syndrome: Assessment and plan: Tachycardia, elevation of WBC, mildly elevated lactate, and initial low blood pressure in the setting of a new focal infeciton are c/w sepsis syndrome. BP has been stable in the ED so ED provider was not agressive with fluids in this paiient with h/o CHF. (3) Cardiomyopathy: Status: Acute Assessment and plan: Borderline troponins in setting of acute infection. EKG not c/w acute ischemia and no chest pain, so I don't think this is ACS. Continue to monitor troponins. Will continue outpatient therapy including high intensity statin. He should also be on antiplatelet therapy. He stopped aspirin in 2022 after a GI bleed. Will resume and monitor for bleeding. His most recent ECHO was at [facility] and showed a normalization of LVEF to 55-60% He does have some pulmonary HTN and borderline right heart funciton (this updated information was not noted in Dr. Kidd's 05/31 note) Qualifiers: Cardiomyopathy type: unspecified Qualified Code(s): I42.9 - Cardiomyopathy, unspecified (4) Lymphedema: Status: Acute Assessment and plan: This is chronic, no acute change. Stopping levofloxacin (5) Atrial fibrillation: Status: Chronic Assessment and plan: He is on apixaban, reports good adherence. Qualifiers: Atrial fibrillation type: permanent Qualified Code(s): I48.21 - Permanent atrial fibrillation (6) Essential hypertension: Status: Chronic Assessment and plan: BP has been stable here. Reviewing records, he runs low with SBP in 80s noted a an outpatient. Holding spironloactone with hyperkalemia, but should resume if possible when able. (7) Type 2 diabetes mellitus: Status: Chronic Assessment and plan: A1c 6.3 on 05/07/23. This may be over-treatment as his regimen includes glipizide, which as the risk of hypoglycemia. He is not on a GLP-1, which would be ideal given his CAD history. For now, holding metformin with drop in GFR. sliding scale insulin prn. 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 I will continue outpatient inhalers but no steroids for now. Qualifiers: Emphysema type: unspecified Qualified Code(s): J43.9 - Emphysema, unspecified (9) NAFLD (nonalcoholic fatty liver disease): Status: Acute Assessment and plan: There is note of previous ascites, but current labs are not consistent with cirrhosis, and are reassuring. (10) Hyperkalemia: Status: Acute (11) Acute kidney injury superimposed on chronic kidney disease: Status: Resolved Assessment and plan: This is likely relate to acute illness. Check bladder scan to make sure not geting obstruction. Hydrate IV and po judiciously. Follow (12) DVT prophylaxis: Status: Resolved Assessment and plan: He is on apixaban (13) Discharge planning issues: Status: Resolved Assessment and plan: Treat inpatient pending cultures and clincal respose. He did confirm clearly with me that he is DNI. History of Present Illness History of Present Illness Chief Complaint: low blood pressure per home health Narrative: 72 yo M with CAD, type 2 DM, PVD, COPD, Atrial fibrillation, and recent recurrent lower extremity skin infections associated with chornic lymphedema and venous insufficiency who was sent in by home health after they noted systolic blood pressures in the 80s at home. He as felt tired, cold, generally weak for the past month, no change today. He has felt mildly short of breath for years, again no change. He hasn't had any chest pain, dizziness, or palpitations. His swelling hasn't changed, had uniboots replaced earlier on the day of admission. Leg was still seeping but odor had improved. He has no other new symtpoms. Of note, the patient was seen by his PCP 05/26/23 who was concerned for recurrence of the cellulitis and started him on levofloxacin 750mg QOD. Prior infection in April was culture positive for pseudomonas, group B strep, and MSSA. It was treated with piperacillin/tazobactam and vancomycin. Review of Systems Constitutional Constitutional: Denies anorexia, Denies chills, Reports fatigue, Denies fever(s), Denies headache(s) and Reports lethargy Eyes Eyes: Denies change in vision and Denies irritation ENT Ears, Nose, Mouth, and Throat: Denies dizziness, Denies headache(s), Denies nasal congestion, Denies nasal discharge and Denies sore throat Cardiovascular Cardiovascular: Denies chest pain, Denies chest pain with activity, Reports pedal edema, Denies edema, Denies palpitations and Reports orthopnea Respiratory Respiratory: Denies cough, Denies excessive phlegm production and Denies wheezing Gastrointestinal Gastrointestinal: Denies abdominal pain, Denies melena, Denies hematochezia, Denies change in stool character, Reports constipation (occaisionally), Denies heartburn, Denies diarrhea, Denies nausea and Denies vomiting Genitourinary Genitourinary: Denies hematuria, Denies dysuria, Denies urinary incontinence and Reports urinary urgency (not new) Musculoskeletal Comments: no new joint pain Integumentary/Breasts Skin/Breast: Denies rash (just his seeping legs. scratches on head) and Denies skin ulcer Neurologic Neurologic: Denies confusion, Denies dizziness, Denies headache(s), Denies localized weakness, Denies memory loss, Denies sensory deficit and Reports tremor(s) (since being on levofloxacin) Psychiatric Psychiatric: Denies confusion, Denies memory loss and Denies mood swings Endocrine Endocrine: Reports fatigue and Denies palpitations Hematologic/Lymphatic Hematologic/Lymphatic: Denies easy bleeding and Denies easy bruising Allergic/Immunologic Allergic/Immunologic: Denies wheezing PFSH All Active Problems Pneumonia (Acute) Acute kidney injury (Acute) Hyperkalemia (Acute) Multifocal pneumonia (Acute) Lymphedema (Acute) PVD (peripheral vascular disease) (Chronic) Edema (Acute) Venous (peripheral) insufficiency (Acute) Erythematous rash (Acute) Chronic venous stasis dermatitis (Acute) Skin tear of left lower leg without complication (Acute) left forefoot, just distal to ankle fold Edema of lower extremity (Acute) presumed venous insuff; PAD? Lymphedema? [facility] TBD Tinea (Acute) NAFLD (nonalcoholic fatty liver disease) (Acute) [facility] [place] [place] Iron deficiency anemia (Acute) Pleural nodule (Acute) Renal calculus, left (Acute) Hepatic steatosis (Acute) Ascites (Acute) Pleural effusion (Acute 06/26/22) Cardiomyopathy (Acute) CAD (coronary artery disease) (Chronic) Corns and callosities (Acute) Nail dystrophy (Acute) Hypercapnic respiratory failure (Acute) Heart failure, systolic, chronic (Acute) Recurrent infections (Chronic) H/o recurrent leg cellulitis and sepsis CHF (congestive heart failure) (Acute) 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 2 diabetes mellitus (Chronic ~10/2019) Atrial fibrillation (Chronic) Psoriasis (Chronic) Tinea pedis (Acute 10/29/20) [facility] [place] Vitamin B12 deficiency (Chronic) Stasis dermatitis of both legs (Acute) CKD (chronic kidney disease) (Acute) CKD3, Cr 1.4-1.9 [id number] Essential hypertension (Chronic) Type 2 diabetes mellitus (Chronic) Venous insufficiency (Chronic) COPD (chronic obstructive pulmonary disease) with emphysema (Chronic) Obesity (Chronic) Hyperlipidemia, unspecified (Chronic) Tobacco use disorder (Chronic) Medical History Palliative care patient NSTEMI (non-ST elevated myocardial infarction) Sepsis syndrome Hypothyroidism Surgical History History of abdominal paracentesis (~08/27/22) S/P CABG x [facility] ([facility] Right-Age 17 Orchiectomy, Radical Left, s/p trauma Colonoscopy - MAC (11/10/16) Family History Father , [place]? at age 79. Essential hypertension Myocardial infarction Maternal Aunt Neoplasm Adnexa NOS Maternal Grandmother Neoplasm Adnexa NOS Mother , CVA & PNA at age 81. Essential hypertension Stroke Paternal Grandfather Myocardial infarction Social History (Updated 06/05/23 @ 23:05 by Raymond Hernandez) Smoking/Tobacco Use Status: Former Tobacco Use Smoking risk assessment performed?: Yes Alcohol Intake: current Alcohol Intake frequency: holidays/special occasions only Details: no recent alcohol Drug use: Never Substance use type: does not use Adopted: No Caregiver/Support person: No Household members: spouse, family and children Housing: house Number of Children: 2 number of grandchildren: 4 Communication Needs: None Education Level: college Details: Some College Do you need help understanding health information?: Rarely Pets and animals: No Sexually active: No Do you think of yourself as: straight/heterosexual Current gender identity: male What is your relationship status?: How often do you talk on the phone with friends or family?: once per week How often do you get together with friends or relatives?: once per week Do you belong to any clubs or organized social groups?: no Panel score (0-1 are the most socially isolated patients): 1 What type of physical activity do you participate in: resistance training Duration: < 15 minutes/day Frequency: 1-2 times per week Chantell/Rastafari: Judaism Special chantell needs: No Seatbelt use: always Drive intox or ride w/intox catering driver: No Do you feel safe at home: Yes Do you feel safe in your relationship?: Yes Additional Social history: Retired, lives in [place] with , father in law, and son. Meds Allergies and Home Medications Allergies Allergy/AdvReac Type Severity Reaction Status Date / Time shellfish derived Allergy Intermediate Hives Verified 06/05/23 18:46 house dust Allergy Mild Other (See Verified 06/05/23 18:46 Comment) hay fever Allergy Mild runny nose Uncoded 06/05/23 18:46 and cough Home Medications Medication Instructions Recorded Confirmed Type blood-glucose meter (OneTouch #1 ea 11/02/19 06/05/23 Rx UltraMini kit) comp.stocking,knee,long,medium #2 units 06/01/20 06/01/23 Rx acetaminophen 500 mg capsule 1,000 mg PO Q6H PRN 05/13/22 06/05/23 History apixaban 5 mg tablet (Eliquis) 5 mg PO BID #180 tabs 05/15/22 06/05/23 Rx blood sugar diagnostic (Blood #100 ea 05/15/22 06/05/23 Rx Glucose Test strips) lancets #100 ea 05/15/22 06/05/23 Rx albuterol sulfate 90 mcg/actuation 2 puff inhalation QID PRN SOB #18 06/02/22 06/05/23 Rx aerosol inhaler grams atorvastatin 80 mg tablet 80 mg PO DAILY #90 tabs 08/27/22 06/05/23 Rx fluticasone propionate 110 2 puff inhalation BID #12 grams 09/05/22 06/05/23 Rx mcg/actuation HFA aerosol inhaler (Flovent HFA) spironolactone 25 mg tablet 25 mg PO DAILY #90 tabs 10/16/22 06/05/23 Rx metformin 500 mg tablet 500 mg PO BID #180 tabs 01/26/23 06/05/23 Rx glipizide 5 mg tablet, extended 5 mg PO DAILY #90 tab-caps 02/09/23 06/05/23 Rx release 24 hr tiotropium 2.5 mcg-olodaterol 2.5 2 puff inhalation DAILY #4 grams 03/04/23 06/05/23 Rx mcg/actuation mist for inhalation (Stiolto Respimat) Circaids #1 ea 04/03/23 06/01/23 Rx gabapentin 100 mg capsule 100 mg PO BID 05/15/23 06/05/23 History lanolin alcohols-mineral 1 applic topical .COMPLEX 05/15/23 06/05/23 History oil-w.petrolatum-ceresin topical cream (Minerin Creme topical) metoprolol succinate 50 mg 50 mg PO BID 05/15/23 06/05/23 History tablet,extended release 24 hr nystatin 100,000 unit/gram topical 1 applic topical BID #30 grams 05/15/23 06/05/23 Rx powder torsemide 20 mg tablet 20 mg PO DAILY 05/15/23 06/05/23 History levofloxacin 250 mg tablet 750 mg (3 x 250 mg) PO .COMPLEX 30 06/01/23 06/05/23 Rx days #45 tabs tramadol 50 mg tablet 50 mg PO Q8H PRN pain #21 tabs 06/01/23 06/05/23 Rx Exam Narrative Exam Narrative: GEN: Alert and oriented, pleasant and cooperative, gives linear history. No acute distress at rest. Sitting in chair HEENT: Head atraumatic other than scabbed linear excoriations on scalp. Conjunctiva clear, no icterus. PEERL, EOMI. no rhinorrhea. MMM, OP benign. Neck is supple with no masses or lymphadenopathy, trachea midline LUNGS: CTAB with normal effort CV: RRR with no murmurs, gallops, or rubs. ABD: +BS, soft, NT/ND, no palpable fluid EXT: no cyanosis, clubbing. 2-3+ edema bilaterally to below knees. Uniboot in place, blue on toes. Toes warm, cap refill around 2 sec wali in toes. MSK: No joint redness or swelling NEURO: CN 2-12 grossly intact. Normal movement of 4 extremities. Normal speech and coordination SKIN: Hyperpigmentation in lower legs wali. See HEENT re: scalp. No open wounds (though uniboots were not removed). PSYCH: normal mood and affect Results Imaging Chest x-ray: report reviewed (1. Left lung infiltrate which appears to be a segmental left upper lobe lingular infiltrate. 2. Right lung base subsegmental infiltrates versus atelectasis. 3. Minor bilateral pleural effusions. 4. Previous open-heart surgery. No cardiac enlargement of significance. 5. Degenerative th) and image reviewed EKG: report reviewed and image reviewed (sinus tachy with right bundle, was present on 08/05 EKG.) L abs 06/05/23 19:44 06/05/23 19:44 Labs: Laboratory Results - last 24 hr 06/05/23 06/05/23 06/05/23 19:44 19:53 21:03 WBC 11.44 H RBC 3.50 L Hgb 9.3 L Hct 31.0 L MCV 89 MCH 26.6 L MCHC 30.0 L RDW 18.4 H Plt Count 270 MPV 8.5 Immature Gran % 1.7 Neutrophils % 84.4 Lymphocytes % 4.5 Monocytes % 6.6 Eosinophils % 2.2 Basophils % 0.6 Nucleated RBC % 0.0 Absolute Neutrophils 9.66 H Absolute Lymphocytes 0.51 L Absolute Monocytes 0.76 Absolute Eosinophils 0.25 Absolute Basophils 0.07 VBG Lactate 1.6 H Sodium 134 L Potassium 5.4 H Chloride 99 Carbon Dioxide 25.9 Anion Gap 9.1 BUN 85 H* Creatinine 3.3 H Est GFR (CKD-EPI 2020) 19.20 Glucose 125 H Calcium 9.1 Magnesium 2.5 H Total Bilirubin 0.7 AST 22 ALT 31 Alkaline Phosphatase 104 Troponin I 52 Total Protein 7.9 Albumin 2.8 L Urine Color Yellow Urine Clarity Sl Cloudy Urine pH 5.5 Ur Specific [place] 1.015 Urine Protein Negative Urine Ketones Negative Urine Blood Moderate H Urine Nitrite Negative Urine Bilirubin Negative Urine Urobilinogen 0.2 Ur Leukocyte Esterase Small H Urine RBC 10-20 H Urine WBC 10-20 H Ur Epithelial Cells Few Urine Crystals Negative Urine Bacteria Few Urine Casts Negative Urine Mucus Negative Ur Culture Indicated? Yes Urine Glucose Negative COVID-19 Source NASOPHARYNX SARS-CoV-2 (PCR) Negative Influenza Type A (PCR) Negative Influenza Type B (PCR) Negative RSV (PCR) Negative Last Vital Signs Temp 36.6 C 06/05/23 18:42 Pulse 112 H 06/05/23 18:42 Resp 18 06/05/23 19:02 Pulse Ox 96 06/05/23 18:42 Time Spent Time spent with Patient: 55-74 minutes Time was spent: preparing to see the patient(eg.review tests), obtaining and/or reviewing separately otained hiistory, ordering medications,tests, procedures, referring, communicating with other health respite care provider, indepentently interpreting results and counseling the patient
[2023-06-05] MEDS: AZITHROMYCIN 500 MG in Normal Saline 250 ML 250 MG IVPB (21:19)
[2023-06-05] MEDS: PIPERACILLIN/TAZO 4.5 GM in Normal Saline 100 ML IVPB (22:58)
[2023-06-05] MEDS: Apixaban 5 MG TAB PO (23:01)
[2023-06-05] MEDS: Gabapentin 100 MG CAP PO (23:01)
[2023-06-06] VITALS (9 sets, daily range): BP systolic 88–95; BP diastolic 55–64; PULSE 112–118; RESP 16–18; TEMP 35.1–38.3; O2SAT 93–97
[2023-06-06] MEDS: Normal Saline 500 ML IV
[2023-06-06 00:11] LABS: Troponin I < 50 ng/L (< or =60)
[2023-06-06] MEDS: Acetaminophen 500 MG TAB 1000 MG PO (03:32)
[2023-06-06 05:36] LABS: Lactate 1.6 mmol/L (0.6-1.4)
[2023-06-06 05:39] LABS: Abs Immature Grans 0.14 10^3/uL (0.0-0.06); Absolute Eosinophil Count 0.06 10^3/uL (0.0-0.7); Basophils % 0.4; Eosinophils % 0.3; HCT 27.2 % (40.0-50.0); HGB 8.3 g/dL (13.5-17.5); Immature Grans % 0.7; Lymphocytes % 2.2; MCH 26.7 pg (27.0-33.0); MCHC 30.5 % (32.0-36.0); MCV 88 fL (80-95); MPV 8.7 fL (8.0-11.0); Monocytes % 5.7; Neutrophils % 90.7; Platelet Count 252 10^3/uL (130-400); RBC 3.11 10^6/uL (4.36-5.78); RDW 18.7 % (11.8-14.1); RDW-SD 57.7 fL; WBC 19.46 10^3/uL (4.4-10.8)
[2023-06-06 05:47] LABS: Absolute Basophil Count 0.08 10^3/uL (0.0-0.2); Absolute Lymphocyte Count 0.43 10^3/uL (1.2-3.4); Absolute Monocyte Count 1.11 10^3/uL (0.1-0.8); Absolute Neutrophil Count 17.65 10^3/uL (1.2-6.7)
[2023-06-06 05:55] LABS: Anion Gap 11.1 mmol/L (3-11); CO2 19.9 mmol/L (21.0-32.0); CREATININE 3.4 mg/dL (0.70-1.30); Calcium 8.8 mg/dL (8.5-10.1); Chloride 102 mmol/L (98-107); Estimated GFR 18.53 (mL/min/1.73m2); Glucose 84 mg/dL (74-106); Potassium 5.6 mmol/L (3.5-5.1); Sodium 133 mmol/L (136-145)
[2023-06-06 06:02] LABS: BUN 87 mg/dL (7-18)
[2023-06-06] MEDS: PIPERACILLIN/TAZO 3.375 GM in Normal Saline 50 ML IVPB (06:10)
[2023-06-06] MEDS: Atorvastatin 40 MG TAB 80 MG PO (07:42)
[2023-06-06] MEDS: Torsemide 20 MG TAB PO (07:43)
[2023-06-06] MEDS: Gabapentin 100 MG CAP PO ×2 (07:44→19:31)
[2023-06-06] MEDS: Nystatin POWDER 15 GM JAR TP ×2 (07:44→20:23)
[2023-06-06] MEDS: Apixaban 5 MG TAB PO ×2 (07:44→19:31)
[2023-06-06] MEDS: VANCOMYCIN/WATER (PEG) 2 GM/400 ML BAG IV (07:47)
[2023-06-06] MEDS: Normal Saline Flush 10 ML SYR (07:54)
[2023-06-06] MEDS: Normal Saline 250 ML 500 ML IV (08:28)
[2023-06-06] MEDS: Metoprolol CR 50 MG TABCR PO (08:36)
[2023-06-06] MEDS: Aspirin E.C. 81 MG TABEC PO (08:37)
--- NOTE | 2023-06-06 08:39 | INITIAL_ITS ---
Date of service: 06/06/23 Care Management Initial Assmt Initial Assessment REASON FOR HOSPITALIZATION:: CAP PREVIOUS FUNCTIONAL STATUS/SOCIAL/FAMILY SUPPORTS:: Demetrio lives in [place] with Marifer who he has been to for 33 years. Their son Сергей who is 23 lives with them as well as their grandson Oliver who is 14. CURRENT FUNCTIONAL STATUS:: Demetrio was sitting up in a chair eating when meeting with CM. Demetrio explained he has been dealing with health issues over the last 5 years and does not feel he is getting any answers to of his symptoms. Each time he is seen, he reports there is a new set of symptoms. He says he wonders if he has cancer but has been screened for cancer and none have been detected. He says it is taxing on him and his family to have conditions that don't have answers and described his son is his right hand man and gets pretty worried and upset when he is not well. He did say Dr. Hernandez and have both been in to see him and liked that they were trying to figure out if anything has been missed. CM following. ADVANCE DIRECTIVES:: None on file at [facility] Has patient been provided with info about the portal/API?: Yes Did the patient sign up for the portal?: Yes CODE STATUS:: DNI INSURANCE COVERAGE / FINANCIAL ISSUES:: [employer] Medicare Replacement CURRENT HOME/COMMUNITY SERVICES/EQUIPMENT:: None PRIMARY CARE PHYSICIAN:: Carlos Kramer , DO PATIENT/FAMILY EDUCATION NEEDS:: Review discharge instructions and plan of care as prescribed. Discussion of [facility] TRANSPORTATION:: Via private vehicle by family. PLAN:: Demetrio will discharge home when medically cleared. He will follow up with his PCP and plan of care as prescribed. CM following. [facility] All Active Problems (Updated 06/06/23 @ 09:02 by Roger Wagoner MD) Severe sepsis (Acute) Pneumonia (Acute) Acute kidney injury (Acute) Hyperkalemia (Acute) Multifocal pneumonia (Acute) Lymphedema (Acute) PVD (peripheral vascular disease) (Chronic) Edema (Acute) Venous (peripheral) insufficiency (Acute) Erythematous rash (Acute) Chronic venous stasis dermatitis (Acute) Skin tear of left lower leg without complication (Acute) left forefoot, just distal to ankle fold Edema of lower extremity (Acute) presumed venous insuff; PAD? Lymphedema? [facility] TBD Tinea (Acute) NAFLD (nonalcoholic fatty liver disease) (Acute) [facility] Iron deficiency anemia (Acute) Pleural nodule (Acute) Renal calculus, left (Acute) Hepatic steatosis (Acute) Ascites (Acute) Pleural effusion (Acute 06/26/22) Cardiomyopathy (Acute) CAD (coronary artery disease) (Chronic) Corns and callosities (Acute) Nail dystrophy (Acute) Hypercapnic respiratory failure (Acute) Heart failure, systolic, chronic (Acute) Recurrent infections (Chronic) H/o recurrent leg cellulitis and sepsis CHF (congestive heart failure) (Acute) 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 2 diabetes mellitus (Chronic ~10/2019) Atrial fibrillation (Chronic) Psoriasis (Chronic) Tinea pedis (Acute 10/29/20) [facility] [place] Vitamin B12 deficiency (Chronic) Stasis dermatitis of both legs (Acute) CKD (chronic kidney disease) (Acute) CKD3, Cr 1.4-1.9 [id number] Essential hypertension (Chronic) Type 2 diabetes mellitus (Chronic) Venous insufficiency (Chronic) COPD (chronic obstructive pulmonary disease) with emphysema (Chronic) Obesity (Chronic) Hyperlipidemia, unspecified (Chronic) Tobacco use disorder (Chronic) Medical History Palliative care patient NSTEMI (non-ST elevated myocardial infarction) Sepsis syndrome Hypothyroidism Surgical History History of abdominal paracentesis (~08/27/22) S/P CABG x 3 (04/11/22) [facility], ACL Right-Age 17 Orchiectomy, Radical Left, s/p trauma Colonoscopy - MAC (11/10/16) Family History Father , [place]? at age 79. Essential hypertension Myocardial infarction Maternal Aunt Neoplasm Adnexa NOS Maternal Grandmother Neoplasm Adnexa NOS Mother , CVA & PNA at age 81. Essential hypertension Stroke Paternal Grandfather Myocardial infarction Social History (Updated 06/05/23 @ 23:05 by Raymond Hernandez) Smoking/Tobacco Use Status: Former Tobacco Use Smoking risk assessment performed?: Yes Alcohol Intake: current Alcohol Intake frequency: holidays/special occasions only Details: no recent alcohol Drug use: Never Substance use type: does not use Adopted: No Caregiver/Support person: No Household members: spouse, family and children Housing: house Number of Children: 2 number of grandchildren: 4 Communication Needs: None Education Level: college Details: Some College Do you need help understanding health information?: Rarely Pets and animals: No Sexually active: No Do you think of yourself as: straight/heterosexual Current gender identity: male What is your relationship status?: How often do you talk on the phone with friends or family?: once per week How often do you get together with friends or relatives?: once per week Do you belong to any clubs or organized social groups?: no Panel score (0-1 are the most socially isolated patients): 1 What type of physical activity do you participate in: resistance training Duration: < 15 minutes/day Frequency: 1-2 times per week Chantell/Catholic: Restoration Special chantell needs: No Seatbelt use: always Drive intox or ride w/intox hi low truck driver: No Do you feel safe at home: Yes Do you feel safe in your relationship?: Yes Additional Social history: Retired, lives in [place] with , father in law, and son. SDOH(Care Management) Screening Will the Patient Participate in the Screening?: Declined to provide
--- NOTE | 2023-06-06 08:53 | PGE_ITS ---
Date of Service Date of service: 06/06/23 Time of Service: 08:53 Assessment and Plan Assessment and plan (1) Severe sepsis: Status: Acute Assessment and plan: - Patient meets criteria for severe sepsis on admission with concern for multifocal pneumonia, tachycardia, leukocytosis, fever, and LORETO on CKD -Patient was started on vancomycin and Zosyn, however this has been discontinued given patient has LORETO -Patient now on Vanco and cefepime -Follow-up blood culture results (2) Multifocal pneumonia: Status: Acute Assessment and plan: -as noted above (3) Acute kidney injury superimposed on chronic kidney disease: Status: Resolved Assessment and plan: -secondary to severe sepsis as noted above -baseline Cr 1.9, was up to 3.3 in ED and 3.4 this AM -may be slow to resolved as patient initially recieved combo of vanc and zosyn, which has since been switched as noted above -f/u AM BMP (4) Cardiomyopathy: Status: Acute Assessment and plan: -Borderline troponins in setting of acute infection. -Likely due to demand ischemia -continue outpatient therapy including high intensity statin. -restart ASA Qualifiers: Cardiomyopathy type: unspecified Qualified Code(s): I42.9 - Cardiomyopathy, unspecified (5) Lymphedema: Status: Acute Assessment and plan: -chronic, no acute changes (6) Atrial fibrillation: Status: Chronic Assessment and plan: -cotinue home eliquis Qualifiers: Atrial fibrillation type: permanent Qualified Code(s): I48.21 - Permanent atrial fibrillation (7) Essential hypertension: Status: Chronic Assessment and plan: -BP has been stable here. Reviewing records, he runs low with SBP in 80s noted a an outpatient. -Holding spironloactone with hyperkalemia, but should resume if possible when able. 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 He also states that he appreciates that we are doing a deeper evaluation into his worsening functional status that he believes is due to something that is being missed. Otherwise patient has no other complaints or concerns at this time. Exam Narrative Exam Narrative: Older gentleman sitting in the chair no acute distress, ANO x 4, heart irregularly irregular rate in the low 100s, lungs clear to auscultation bilaterally, abdomen soft, nontender, nondistended Objective Last Vital Signs Temp 99.3 F 06/06/23 07:24 Pulse 117 H 06/06/23 07:24 Resp 16 06/06/23 07:24 BP 92/55 L 06/06/23 07:24 Pulse Ox 93 06/06/23 07:24 Laboratory Results - last 24 hr 06/05/23 06/05/23 06/05/23 19:44 19:53 21:03 WBC 11.44 H RBC 3.50 L Hgb 9.3 L Hct 31.0 L MCV 89 MCH 26.6 L MCHC 30.0 L RDW 18.4 H Plt Count 270 MPV 8.5 Immature Gran % 1.7 Neutrophils % 84.4 Lymphocytes % 4.5 Monocytes % 6.6 Eosinophils % 2.2 Basophils % 0.6 Nucleated RBC % 0.0 Absolute Neutrophils 9.66 H Absolute Lymphocytes 0.51 L Absolute Monocytes 0.76 Absolute Eosinophils 0.25 Absolute Basophils 0.07 VBG Lactate 1.6 H Sodium 134 L Potassium 5.4 H Chloride 99 Carbon Dioxide 25.9 Anion Gap 9.1 BUN 85 H* Creatinine 3.3 H Est GFR (CKD-EPI 2020) 19.20 Glucose 125 H Calcium 9.1 Magnesium 2.5 H Total Bilirubin 0.7 AST 22 ALT 31 Alkaline Phosphatase 104 Troponin I 52 Total Protein 7.9 Albumin 2.8 L Urine Color Yellow Urine Clarity Sl Cloudy Urine pH 5.5 Ur Specific Wickett 1.015 Urine Protein Negative Urine Ketones Negative Urine Blood Moderate H Urine Nitrite Negative Urine Bilirubin Negative Urine Urobilinogen 0.2 Ur Leukocyte Esterase Small H Urine RBC 10-20 H Urine WBC 10-20 H Ur Epithelial Cells Few Urine Crystals Negative Urine Bacteria Few Urine Casts Negative Urine Mucus Negative Ur Culture Indicated? Yes Urine Glucose Negative COVID-19 Source NASOPHARYNX SARS-CoV-2 (PCR) Negative Influenza Type A (PCR) Negative Influenza Type B (PCR) Negative RSV (PCR) Negative 06/05/23 06/06/23 23:45 05:30 WBC 19.46 H RBC 3.11 L Hgb 8.3 L Hct 27.2 L MCV 88 MCH 26.7 L MCHC 30.5 L RDW 18.7 H Plt Count 252 MPV 8.7 Immature Gran % 0.7 Neutrophils % 90.7 Lymphocytes % 2.2 Monocytes % 5.7 Eosinophils % 0.3 Basophils % 0.4 Nucleated RBC % 0.0 Absolute Neutrophils 17.65 H Absolute Lymphocytes 0.43 L Absolute Monocytes 1.11 H Absolute Eosinophils 0.06 Absolute Basophils 0.08 VBG Lactate 1.6 H Sodium 133 L Potassium 5.6 H Chloride 102 Carbon Dioxide 19.9 L Anion Gap 11.1 H BUN 87 H* Creatinine 3.4 H Est GFR (CKD-EPI 2020) 18.53 Glucose 84 Calcium 8.8 Magnesium Total Bilirubin AST ALT Alkaline Phosphatase Troponin I < 50 Total Protein Albumin Urine Color Urine Clarity Urine pH Ur Specific Wickett Urine Protein Urine Ketones Urine Blood Urine Nitrite Urine Bilirubin Urine Urobilinogen Ur Leukocyte Esterase Urine RBC Urine WBC Ur Epithelial Cells Urine Crystals Urine Bacteria Urine Casts Urine Mucus Ur Culture Indicated? Urine Glucose COVID-19 Source SARS-CoV-2 (PCR) Influenza Type A (PCR) Influenza Type B (PCR) RSV (PCR) Time Spent with Patient Time Spent with Patient: >50 minutes Time was spent: preparing to see the patient(eg.review tests), obtaining and/or reviewing separately otained hiistory, ordering medications,tests, procedures, referring, communicating with other health customer care manager, indepentently interpreting results, counseling the patient and care coordination
--- NOTE | 2023-06-06 08:55 | PHA.REVIEW2 ---
Pharmacy Admission Review Admission Clinical Review Admission Pharmacy Review: Pneumonia (Acute) Acute kidney injury (Acute) Hyperkalemia (Acute) Multifocal pneumonia (Acute) Lymphedema (Acute) NAFLD (nonalcoholic fatty liver disease) (Acute) Cardiomyopathy (Acute) shellfish derived Allergy (Intermediate, Verified 06/05/23 18:46) Hives house dust Allergy (Mild, Verified 06/05/23 18:46) Other (See Comment) hay fever Allergy (Mild, Uncoded 06/05/23 18:46) runny nose and cough Resuscitation Status DNI Height 5 ft 7 in Weight 104.326 kg Pharmacy Admission Review Renal Dosing Renal Dosing: BUN 87 mg/dL (7-18) H* 06/06/23 05:30 Creatinine 3.4 mg/dL (0.70-1.30) H 06/06/23 05:30 Medications needing adjustments: Intervened (crcl ~22 (LORETO current SCr 3.4, baseline ~2.0)) List of meds needing interventions: zosyn adjusted to 2.25g q6h (now dc'd, 2 doses given in ED - 4.5g @2300, 3.375g @0600) - changed to cefepime 2g q12h.. spoke w/hospitalist re: possible adjustment to 1g q12h for crcl <30, will leave at 2g with expectation that LORETO will resolve. Apixaban dose appropriate for age/wt, gabapentin low dose does not need adjusting Anticoagulation Anticoagulation: Hgb 8.3 g/dL (13.5-17.5) L 06/06/23 05:30 Hct 27.2 % (40.0-50.0) L 06/06/23 05:30 Plt Count 252 10^3/uL (130-400) 06/06/23 05:30 Creatinine 3.4 mg/dL (0.70-1.30) H 06/06/23 05:30 DVT Prophylaxis: Reviewed Medications: Apixaban Therapeutic Anticoagulation: Reviewed Medications: Apixaban (5 mg BID, indication: Afib) Relevant Labs Relevant Labs: Sodium 133 mmol/L (136-145) L 06/06/23 05:30 Potassium 5.6 mmol/L (3.5-5.1) H 06/06/23 05:30 Chloride 102 mmol/L (98-107) 06/06/23 05:30 Magnesium 2.5 mg/dL (1.8-2.4) H 06/05/23 19:44 Electrolytes, C-Reactive P, ESR: Reviewed (WBC 19 from 11 yesterday, CRP 1.52) DM Control DM Control: Reviewed (A1c = 6.3% 05/06/23- has been ~6-7% since 12/2019) Insulin Dosing, Diabetic Medication: home regimen: glipizide XL 5 mg daily, metformin 500 mg BID. current regimen: glipizide XL 2.5 mg daily, metformin on hold, covered w/insulin aspart sliding scale w/meals Cardiac Review Cardiac Review: Troponin I < 50 ng/L (< or =60) 06/05/23 23:45 BP, HR, EF%: Reviewed (hypotensive (per H&P this is not out of the ordinary for pt), tachycardic. on metoprolol ER 50 mg BID (recently decreased from 100 mg BID) + torsemide 20 mg daily) QTc Review QTc: Reviewed (QTc = 558 06/05/23. reviewed chart, all recent EKG show QTc >500) List meds needing interventions: had been on levaquin outpatient, now dc'd. azithromycin ordered but no other QT prolonging meds IV to PO Switch IV Medications: Reviewed (IV abx only, necessary at this time. switch to PO when appropriate) Home Meds Home Med List reviewed: Reviewed Relevent Home Meds Not ordered & why?: spironolactone - hyperkalemia, metformin - LORETO, glipizide ordered 1/2 home dose - per H&P adjusted for possible overtreatment/hypoglycemia risk (A1c = 6.3%), levaquin - now on vanco + cefepime, metoprolol succ 100 mg - recent decrease to 50 mg BID Current Meds Current Medication Order Review: Reviewed Pharmacy Antibiotic Review Pharmacy Antibiotic Activity: Abx regimen adjustment (zosyn switched to cefepime d/t LORETO) and C/S review (blood cultures pending, wound cx from 05/18/23: pseudomonas, mixed gram positive) Comments: azithromycin 250 mg IV q24 + cefepime 2g q12h + vanco 750 mg q24h. indication: pneumonia/cellulitis. previously on levaquin 750 mg q48h outpatient
[2023-06-06] MEDS: Mometasone 220 MCG 14 DOSE INHALER 1 PUFF IH ×2 (09:52→20:12)
[2023-06-06] MEDS: Tiotropium/Olodaterol 10 PUFF INHALER 2 PUFF IH (09:52)
[2023-06-06] MEDS: CEFEPIME 2 GM in Normal Saline 100 ML IVPB ×2 (10:53→22:11)
[2023-06-06] MEDS: Insulin Aspart 300 UNITS/3 ML PEN SC (11:57)
[2023-06-06] MEDS: AZITHROMYCIN 250 MG in Normal Saline 250 ML IVPB (19:31)
[2023-06-07] VITALS (7 sets, daily range): BP systolic 90–101; BP diastolic 59–72; PULSE 113–118; RESP 15–19; TEMP 35.9–36.6; O2SAT 97–99
[2023-06-07] MEDS: Metoprolol 12.5 MG TAB PO ×3 (00:42→20:52)
[2023-06-07 05:53] LABS: HCT 27.6 % (40.0-50.0); HGB 8.3 g/dL (13.5-17.5); MCH 26.9 pg (27.0-33.0); MCHC 30.1 % (32.0-36.0); MCV 89 fL (80-95); MPV 8.8 fL (8.0-11.0); Platelet Count 231 10^3/uL (130-400); RBC 3.09 10^6/uL (4.36-5.78); RDW-SD 59.4 fL; WBC 14.73 10^3/uL (4.4-10.8)
[2023-06-07 06:06] LABS: ALT 23 U/L (16-63); AST 23 U/L (15-37); Albumin 2.6 g/dL (3.4-5.0); Alkaline Phosphatase 83 U/L (46-116); Anion Gap 12.4 mmol/L (3-11); Bilirubin, Total 1.1 mg/dL (0.2-1.0); CO2 20.6 mmol/L (21.0-32.0); Chloride 99 mmol/L (98-107); Estimated GFR 21.53 (mL/min/1.73m2); Glucose 77 mg/dL (74-106); Potassium 5.2 mmol/L (3.5-5.1); Sodium 132 mmol/L (136-145); Total Protein 7.6 g/dL (6.4-8.2)
[2023-06-07 06:08] LABS: BUN 84 mg/dL (7-18)
[2023-06-07] MEDS: Normal Saline Flush 10 ML SYR (07:47)
[2023-06-07] MEDS: Aspirin E.C. 81 MG TABEC PO (07:48)
[2023-06-07] MEDS: Torsemide 20 MG TAB PO (07:48)
[2023-06-07] MEDS: Gabapentin 100 MG CAP PO ×2 (07:49→20:16)
[2023-06-07] MEDS: Apixaban 5 MG TAB PO (07:49)
[2023-06-07] MEDS: Atorvastatin 40 MG TAB 80 MG PO (07:49)
[2023-06-07] MEDS: VANCOMYCIN/WATER (PEG) 750 MG/150 ML BAG 150 MG IV (07:50)
[2023-06-07] MEDS: Nystatin POWDER 15 GM JAR TP ×2 (07:51→20:53)
[2023-06-07] MEDS: Tiotropium/Olodaterol 10 PUFF INHALER 2 PUFF IH (08:33)
[2023-06-07] MEDS: Mometasone 220 MCG 14 DOSE INHALER 1 PUFF IH ×2 (08:33→20:42)
[2023-06-07] MEDS: CEFEPIME 2 GM in Normal Saline 100 ML IVPB ×2 (09:34→22:54)
--- NOTE | 2023-06-07 09:42 | W.PM.PROGNOT ---
Date of Service Date of service: 06/07/23 Time of Service: 09:54 Assessment and Plan Assessment and plan (1) Severe sepsis: Status: Acute Assessment and plan: - Patient meets criteria for severe sepsis on admission with concern for multifocal pneumonia, tachycardia, leukocytosis, fever, and LORETO on CKD -Patient was started on vancomycin and Zosyn, however this has been discontinued given patient has LORETO -Patient now on Vanco and cefepime -Follow-up blood culture results (2) Multifocal pneumonia: Status: Acute Assessment and plan: -as noted above (3) Acute kidney injury superimposed on chronic kidney disease: Status: Resolved Assessment and plan: -secondary to severe sepsis as noted above -baseline Cr 1.9, was up to 3.3 in ED anddown to 3.o this AM -may be slow to resolved as patient initially recieved combo of vanc and zosyn, which has since been switched as noted above -f/u AM BMP (4) Cardiomyopathy: Status: Acute Assessment and plan: -Borderline troponins in setting of acute infection. -Likely due to demand ischemia -continue outpatient therapy including high intensity statin. -restart ASA Qualifiers: Cardiomyopathy type: unspecified Qualified Code(s): I42.9 - Cardiomyopathy, unspecified (5) Lymphedema: Status: Acute Assessment and plan: -chronic, no acute changes (6) Atrial fibrillation: Status: Chronic Assessment and plan: -cotinue home eliquis Qualifiers: Atrial fibrillation type: permanent Qualified Code(s): I48.21 - Permanent atrial fibrillation (7) Essential hypertension: Status: Chronic Assessment and plan: -BP has been stable here. Reviewing records, he runs low with SBP in 80s noted a an outpatient. -Holding spironloactone with hyperkalemia, but should resume if possible when able. 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 (11) Hyperkalemia: Status: Acute Subjective Subjective Interval history since last seen: Patient states that he feels a little better as compared to yesterday, though he continued to state that he thinks something is off, and has been for the last 5 years that no one can figure out. Exam Narrative Exam Narrative: Older gentleman sitting in the chair no acute distress, ANO x 4, heart irregularly irregular rate in the low 100s, lungs clear to auscultation bilaterally, abdomen soft, nontender, nondistended Objective Last Vital Signs Temp 96.7 F L 06/07/23 08:01 Pulse 117 H 06/07/23 08:01 Resp 18 06/07/23 08:01 BP 101/62 06/07/23 08:01 Pulse Ox 97 06/07/23 08:01 Laboratory Results - last 24 hr 06/07/23 05:45 WBC 14.73 H RBC 3.09 L Hgb 8.3 L Hct 27.6 L MCV 89 MCH 26.9 L MCHC 30.1 L RDW 19.0 H Plt Count 231 MPV 8.8 Sodium 132 L Potassium 5.2 H Chloride 99 Carbon Dioxide 20.6 L Anion Gap 12.4 H BUN 84 H* Creatinine 3.0 H Est GFR (CKD-EPI 2020) 21.53 Glucose 77 Calcium 9.0 Total Bilirubin 1.1 H AST 23 ALT 23 Alkaline Phosphatase 83 Total Protein 7.6 Albumin 2.6 L Time Spent with Patient Time Spent with Patient: >50 minutes Time was spent: preparing to see the patient(eg.review tests), obtaining and/or reviewing separately otained hiistory, ordering medications,tests, procedures, referring, communicating with other health skin care instructor, indepentently interpreting results, counseling the patient and care coordination
[2023-06-07] MEDS: Insulin Aspart 300 UNITS/3 ML PEN SC (12:03)
[2023-06-07] MEDS: AZITHROMYCIN 250 MG in Normal Saline 250 ML IVPB (20:16)
[2023-06-08] VITALS (9 sets, daily range): BP systolic 90–110; BP diastolic 50–70; PULSE 110–117; RESP 15–18; TEMP 36–36.8; O2SAT 95–100
[2023-06-08] MEDS: Metoprolol 12.5 MG TAB PO ×5 (01:59→20:24)
[2023-06-08 06:10] LABS: HGB 8.2 g/dL (13.5-17.5); MCHC 30.4 % (32.0-36.0); MCV 89 fL (80-95); MPV 8.6 fL (8.0-11.0); Platelet Count 230 10^3/uL (130-400); RBC 3.04 10^6/uL (4.36-5.78); RDW 19.3 % (11.8-14.1); RDW-SD 59.7 fL; WBC 11.53 10^3/uL (4.4-10.8)
[2023-06-08 06:22] LABS: BUN 75 mg/dL (7-18); CREATININE 2.4 mg/dL (0.70-1.30); Calcium 9.1 mg/dL (8.5-10.1); Chloride 101 mmol/L (98-107); Estimated GFR 28.14 (mL/min/1.73m2); Glucose 109 mg/dL (74-106); Potassium 4.9 mmol/L (3.5-5.1); Sodium 135 mmol/L (136-145)
[2023-06-08] MEDS: Tiotropium/Olodaterol 10 PUFF INHALER 2 PUFF IH (07:53)
[2023-06-08] MEDS: Mometasone 220 MCG 14 DOSE INHALER 1 PUFF IH ×2 (07:53→19:56)
[2023-06-08 08:48] LABS: Lab Add On Test DONE
[2023-06-08] MEDS: Atorvastatin 40 MG TAB 80 MG PO (08:50)
[2023-06-08] MEDS: Torsemide 20 MG TAB PO ×2 (08:50→20:25)
[2023-06-08] MEDS: Gabapentin 100 MG CAP PO ×2 (08:50→20:25)
[2023-06-08] MEDS: Pantoprazole 40 MG TABCR PO ×2 (08:51→20:25)
[2023-06-08] MEDS: Nystatin POWDER 15 GM JAR TP ×2 (08:51→20:31)
[2023-06-08 09:02] LABS: Iron 37 ug/dL (65-175); Total Iron Binding Capacity 331 ug/dL (250-450); Transferrin Sat 11 % (20-55)
[2023-06-08] MEDS: DOXYCYCLINE 100 MG in Normal Saline 100 ML IVPB ×2 (09:05→20:24)
[2023-06-08 09:28] LABS: Ferritin 32 ng/mL (26-388); Folate 8.2 ng/mL (8.6-20.0); Vitamin B12 949 pg/mL (193-986)
[2023-06-08] MEDS: VANCOMYCIN/WATER (PEG) 750 MG/150 ML BAG 150 MG IV (10:08)
--- NOTE | 2023-06-08 10:14 | CMPROGNOTE_ITS ---
Date of service: 06/08/23 Care Management Progress Note Progress Note Text Progress Note Text: S/O: Demetrio was sitting up in a chair eating when talking with CM. Demetrio stated he felt like a pin cushion since he has been getting so many tests but felt glad to be working towards finding answers to his health concerns. Demetrio reports his foot wound prevents him from doing PT, he stated he was getting PT at home but has stopped at this time until the wound is healed. He states he w orks with a wound specailsit in [place] who is one of the providers attempting to find resolutions of his health needs. Demetrio states he no longer is able to drive since he was passing out a lot and it just so happened to be when he was up for his [facility] physical as well so he was not cleared to continue to drive. 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 CM following. A: Demetrio is a 72 year old male admitted to [facility] 06/05/23 for CAP. P: Demetrio will discharge home when medically cleared. He will transport via private vehicle by family. He will follow up with his PCP and discharge plan of care instructions as prescribed. CM following. SDOH(Care Management) Screening Will the Patient Participate in the Screening?: Declined to provide
[2023-06-08] MEDS: CEFEPIME 2 GM in Normal Saline 100 ML IVPB ×2 (11:21→21:54)
[2023-06-08] MEDS: Aspirin E.C. 81 MG TABEC PO (12:13)
[2023-06-08] MEDS: Apixaban 5 MG TAB PO ×2 (12:13→20:25)
[2023-06-08] MEDS: Insulin Aspart 300 UNITS/3 ML PEN SC ×2 (12:14→17:07)
[2023-06-08 12:17] LABS: MRSA PCR Negative (Negative)
--- NOTE | 2023-06-08 16:17 | W.PM.PROGNOT ---
Date of Service Date of service: 06/08/23 Time of Service: 16:17 Assessment and Plan Assessment and plan (1) Severe sepsis: Status: Acute Assessment and plan: patient presented w/ signs/symptoms of sepsis, presumed source was CAP and patient was begun on Vancomycin, Zosyn and azithromycin but Zosyn was changed on 06/05 to cefepime out of abundance of concern for his LORETO on CKD. However, studies have not shown any worsening of renal failure w/ combo of vancomycin and zosyn vs vancomycin and cephalosporins. His QTC is prolonged at 558 msec, therefore I stopped his azithromycin and changed this to doxycycline. Strep urine Ag and Legionella urine Ag are pending. I ordered sputum for mycoplasma but he really has not produced any sputum to culture. CXR is being read as bibasilar pneumonia L>R, I concur when compared to prior CXR 08/25/22 the infiltrate on the left base is new. I have continued his Cefepime and doxycycline but stopped the Vancomycin as his MRSA screen was negative. He also has a UTI w/ a resistant E coli and this is probably the more likely culprit of his sepsis. The E coli is resistant to ampicillin including Unasy, Levaquin and Cipro but remains sensitive to Zosyn and cephalosporins (Ceftriaxone and Ceftazidime), as well as carbapenem. I will continue current antibiotic regimen pending final results of blood cultures (which have been no growth after 48h). (2) Multifocal pneumonia: Status: Acute Assessment and plan: as above. He is not requiring oxygen supplementation and has no sputum production. The infiltrates on his CXR may be d/t CHF rather than pneumonia. (3) Acute kidney injury superimposed on chronic kidney disease: Status: Resolved Assessment and plan: secondary to sepsis but also component of cardiorenal syndrome. see impression under cardiiomyopathy (4) Cardiomyopathy: Status: Acute Assessment and plan: patient has hx of HFREF echo from 06/06/22 demonstrated LVEF 35% w/ diffuse global LV hypokinesis, normal RV size and probable normal RV function w/ moderate MR and mild to moderate TR. 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 he was discharged home on Levaquin. he had recent echo done at [facility] that has shown improvement in his HFREF w/ LVEF now at 55-60%, mild concentric LVH no RWMA, normal LA size and mild GAUDENCIO, however RV is now moderately dilated w/ low normal global RV systolic function and elevated RVSP 40 to 45 mm and moderate to severe TR w/ mild AI and mild to moderate which is new. 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 I have increased his torsemide and added zaroxoly to his regimen. Qualifiers: Cardiomyopathy type: unspecified Qualified Code(s): I42.9 - Cardiomyopathy, unspecified (5) Lymphedema: Status: Acute Assessment and plan: -chronic, no acute changes (6) Atrial fibrillation: Status: Chronic Assessment and plan: -cotinue home eliquis, metoprolol (lopressor) has been ordered at 12.5 mg po q6h (at home he was on toprol XL 50 mg bid, I will increase his metoprolol to 25 mg qid. He remains tachycardic, while the rhythm appears to be regular sinus tachyardia I wonder if this is really an atrial flutter. He has hx of permanent atrial fibrillation so would be highly improbable that he would revert to sinsus on his own. Qualifiers: Atrial fibrillation type: permanent Qualified Code(s): I48.21 - Permanent atrial fibrillation (7) Essential hypertension: Status: Chronic Assessment and plan: continue torsemide at increased frequency 20 mg bid and lopressor as noted above (8) Type 2 diabetes mellitus: Status: Chronic Assessment and plan: -hold home metformin due to LORETO -monitor blood glucose levelvs continue novolog AC/HS Qualifiers: Diabetes mellitus supervisor intermediates insulin use: without mcc use Diabetes mellitus complication status: with hyperglycemia Qualified Code(s): E11.65 - Type 2 diabetes mellitus with hyperglycemia (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 (11) Hyperkalemia: Status: Acute Assessment and plan: monitor, holding spironolactone Subjective Subjective Interval history since last seen: Patient states that he continues to get dyspneic w/ any kind of activity, although his oxygen saturation has been fine on room air (98 to 100%). No CP or palpitations. Cough is minimal and non productive. Exam Narrative Exam Narrative: Morbidly obese, pleasant gentleman who is sitting up in his chair, able to talk in complete paragraphs w/out dyspnea Lungs: bibasilar rale, no rhonchi or wheezing Heart: tachycardic, regular, distant heart tones, no appreciable murmur Abdomen: obese, nontender Legs/feet: edematous 3+ pitting edema; both lower legs are wrapped in Unna boot type wraps Objective Last Vital Signs Temp 36.2 C L 06/08/23 15:04 Pulse 116 H 06/08/23 15:04 Resp 16 06/08/23 15:04 BP 90/60 L 06/08/23 15:04 Pulse Ox 99 06/08/23 15:04 Laboratory Results - last 24 hr 06/08/23 06/08/23 06/08/23 05:34 05:54 08:47 WBC 11.53 H RBC 3.04 L Hgb 8.2 L Hct 27.0 L MCV 89 MCH 27.0 MCHC 30.4 L RDW 19.3 H Plt Count 230 MPV 8.6 Sodium 135 L Potassium 4.9 Chloride 101 Carbon Dioxide 19.0 L Anion Gap 15.0 H BUN 75 H Creatinine 2.4 H Est GFR (CKD-EPI 2020) 28.14 Glucose 109 H Calcium 9.1 Iron 37 L TIBC 331 Transferrin % Sat 11 L Ferritin 32 Vitamin B12 949 Folate 8.2 L MRSA (TEM-PCR) Add-On Test Request DONE 06/08/23 10:20 WBC RBC Hgb Hct MCV MCH MCHC RDW Plt Count MPV Sodium Potassium Chloride Carbon Dioxide Anion Gap BUN Creatinine Est GFR (CKD-EPI 2020) Glucose Calcium Iron TIBC Transferrin % Sat Ferritin Vitamin B12 Folate MRSA (TEM-PCR) Negative Add-On Test Request Time Spent with Patient Time Spent with Patient: >50 minutes Time was spent: preparing to see the patient(eg.review tests), ordering medications,tests, procedures, referring, communicating with other health healthcare analyst, indepentently interpreting results, counseling the patient and care coordination
[2023-06-08] MEDS: Folic Acid 1 MG TAB PO (17:08)
[2023-06-08] MEDS: IRON SUCROSE COMPLEX 400 MG in Normal Saline 250 ML 100 MG IVPB (18:09)
[2023-06-08] MEDS: metOLazone 2.5 MG TAB PO (18:40)
[2023-06-08 22:15] LABS: Legionella Ag Detection Urine Negative (Negative)
[2023-06-09] VITALS (8 sets, daily range): BP systolic 90–110; BP diastolic 60–79; PULSE 108–119; RESP 15–20; TEMP 35.9–37.1; O2SAT 96–99
[2023-06-09] MEDS: Metoprolol 12.5 MG TAB 25 MG PO (01:42)
[2023-06-09 06:53] LABS: Abs Immature Grans 0.09 10^3/uL (0.0-0.06); Absolute Basophil Count 0.06 10^3/uL (0.0-0.2); Absolute Eosinophil Count 0.59 10^3/uL (0.0-0.7); Absolute Lymphocyte Count 0.55 10^3/uL (1.2-3.4); Absolute Monocyte Count 0.88 10^3/uL (0.1-0.8); Basophils % 0.7; Eosinophils % 6.4; HCT 29.3 % (40.0-50.0); HGB 8.9 g/dL (13.5-17.5); MCH 27.2 pg (27.0-33.0); MCHC 30.4 % (32.0-36.0); MCV 90 fL (80-95); MPV 8.6 fL (8.0-11.0); Monocytes % 9.6; Neutrophils % 76.3; Platelet Count 224 10^3/uL (130-400); RBC 3.27 10^6/uL (4.36-5.78); RDW 19.5 % (11.8-14.1); RDW-SD 61.3 fL; WBC 9.17 10^3/uL (4.4-10.8)
[2023-06-09 07:07] LABS: BUN 67 mg/dL (7-18); CO2 21.3 mmol/L (21.0-32.0); CREATININE 2.2 mg/dL (0.70-1.30); Calcium 9.4 mg/dL (8.5-10.1); Chloride 101 mmol/L (98-107); Estimated GFR 31.24 (mL/min/1.73m2); Glucose 73 mg/dL (74-106)
[2023-06-09 07:17] LABS: Anion Gap 12.7 mmol/L (3-11); Sodium 135 mmol/L (136-145)
[2023-06-09 07:20] LABS: Potassium 3.7 mmol/L (3.5-5.1)
[2023-06-09] MEDS: Mometasone 220 MCG 14 DOSE INHALER 1 PUFF IH ×2 (07:50→19:53)
[2023-06-09] MEDS: Tiotropium/Olodaterol 10 PUFF INHALER 2 PUFF IH (07:50)
--- NOTE | 2023-06-09 08:30 | RT.EKG_ITS ---
APPROVED REPORT Exam: Resting ECG Reason for Exam: tachycardia; ?atrial flutter vs sinus tachycardia Patient Location: I HR:116 bpm ECG Measurements Heart Rate 116 AXIS NH [id number] P [id number] QRSd 136 QRS -97 QT 337 T 70 QTc 469 Conclusion Atrial flutter with predominant 2:1 AV block...A-rate 238, multiple Ps Right bundle branch block...QRSd>120, terminal axis(90,270) Inferior infarct, old...Q >35mS, II III aVF Extensive anterior infarct, old...Q >35mS, V1-V6
[2023-06-09] MEDS: metOLazone 2.5 MG TAB PO (08:57)
[2023-06-09] MEDS: Metoprolol 12.5 MG TAB 37.5 MG PO ×4 (08:59→20:21)
[2023-06-09] MEDS: Spironolactone 25 MG TAB PO (09:00)
[2023-06-09] MEDS: Torsemide 20 MG TAB PO ×2 (09:00→20:21)
[2023-06-09] MEDS: Atorvastatin 40 MG TAB 80 MG PO (09:00)
[2023-06-09] MEDS: Gabapentin 100 MG CAP PO ×2 (09:01→20:21)
[2023-06-09] MEDS: Folic Acid 1 MG TAB PO (09:01)
[2023-06-09] MEDS: Pantoprazole 40 MG TABCR PO ×2 (09:02→20:21)
[2023-06-09] MEDS: Apixaban 5 MG TAB PO ×2 (09:02→20:21)
[2023-06-09] MEDS: Aspirin E.C. 81 MG TABEC PO (09:02)
[2023-06-09] MEDS: Nystatin POWDER 15 GM JAR TP ×2 (09:03→21:47)
[2023-06-09] MEDS: Normal Saline Flush 10 ML SYR IVP ×2 (09:05→11:52)
[2023-06-09] MEDS: DOXYCYCLINE 100 MG in Normal Saline 100 ML IVPB ×2 (09:06→21:40)
[2023-06-09] MEDS: IRON SUCROSE COMPLEX 400 MG in Normal Saline 250 ML 100 MG IVPB (09:32)
--- NOTE | 2023-06-09 10:45 | DI.US_ITS ---
APPROVED REPORT EXAM: Comprehensive 2D, Doppler, and color-flow Echocardiogram Patient Location: In-Patient Room/Bed: [facility] Marine Architect: Daria Ruiz RDCS (AE) Indications: Cor pulmonale, Limited follow up Echo done 05/06/2023 Other Information Study Quality: Adequate. Technically limited study due to body habitus, inability to position patient exam done supine bedside.. Conclusion Normal left ventricular wall thickness and chamber size. Ejection fraction is approximately 50%. No segmental wall motion abnormalities are identified Right ventricle appears grossly normal in size and function Both atria are moderately enlarged Wall motion Left Ventricle Limited follow up exam done for function. Arrhythmia throughout exam. Limited follow up exam.
[2023-06-09] MEDS: CEFEPIME 2 GM in Normal Saline 100 ML IVPB (11:04)
--- NOTE | 2023-06-09 11:07 | W.PM.PROGNOT ---
Date of Service Date of service: 06/09/23 Time of Service: 11:07 Assessment and Plan Assessment and plan (1) Severe sepsis: Status: Acute Assessment and plan: patient presented w/ signs/symptoms of sepsis, presumed source was CAP and patient was begun on Vancomycin, Zosyn and azithromycin but Zosyn was changed on 06/05 to cefepime out of abundance of concern for his LORETO on CKD. However, studies have not shown any worsening of renal failure w/ combo of vancomycin and zosyn vs vancomycin and cephalosporins. His QTC is prolonged at 558 msec, therefore I stopped his azithromycin and changed this to doxycycline. Blood cultures: NGTD Urine culture: E coli w/ multiple resistance to quinolones and Unasyn; sensitive to cephalosporins, currently on Cefepime but may be able to downgrade to Rocephin. Patient was treated for cellulitis of his feet, he recently was dc from [facility] on Levaquin x 10 days. When I asked him if he new what organism they grew from his culture, he seemed to think MRSA, however his MRSA screen is negative but this does not mean that he did not culture this from his foot wounds. I will ask the med/surg staff to contact [facility] to get his results Clinically he is improving, he is not hypoxemic, his WBC have declined to 9170 (2) Multifocal pneumonia: Status: Acute Assessment and plan: as above. He is not requiring oxygen supplementation and has no sputum production. The infiltrates on his CXR may be d/t CHF rather than pneumonia. continue antibiotics as above (doxycycline and cephalosporin but can de-escalate to Rocephin). (3) Acute kidney injury superimposed on chronic kidney disease: Status: Resolved Assessment and plan: secondary to sepsis and cor pulmonale. liver and kidneys were congested on his VEXUS study yesterday. continue diuretics. I have added metolazone along w/ spironolactone and increased his torsemide to 20 mg bid. continue to monitor daily wts and daily BMP. (4) Cardiomyopathy: Status: Acute Assessment and plan: patient has hx of HFREF echo from 06/06/22 demonstrated LVEF 35% w/ diffuse global LV hypokinesis, normal RV size and probable normal RV function w/ moderate MR and mild to moderate TR. He has known ischemic HD w/ prior CABG x 3 vessel, he has chronic bilateral leg edema which has led to chronic infections of his legs and he spent 10 days at [facility] in [place] last month. he was discharged home on Levaquin. he had recent echo done at [facility] that has shown improvement in his HFREF w/ LVEF now at 55-60%, mild concentric LVH no RWMA, normal LA size and mild GAUDENCIO, however RV is now moderately dilated w/ low normal global RV systolic function and elevated RVSP 40 to 45 mm and moderate to severe TR w/ mild AI and mild to moderate which is new. 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 As above. continue w/ diuretics (torsemide 20 mg bid, spironolactone 25 mg daily, zaroxolyn 2.5 mg daily) Qualifiers: Cardiomyopathy type: unspecified Qualified Code(s): I42.9 - Cardiomyopathy, unspecified (5) Lymphedema: Status: Acute Assessment and plan: chronic but worse recently d/t inadequate diuresis (6) Atrial fibrillation: Status: Chronic Assessment and plan: repeat EKG this morning clearly demonstrates atrial flutter, will increase his metoprolol dose but may need second agent, i.e. diltiazem. 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 Subjective Subjective Interval history since last seen: Patient has no new concerns. He remains in atrial flutter w/ HR in the 110's however he has no symptoms of CP or palpitations. He is less dyspneic since given iv diuretics. He can not notice any significant difference in his leg edema Exam Narrative Exam Narrative: Mr. Artis is alert, oriented, NAD, he is talking w/ his nurses Lungs: clear Heart: regular but tachycardic, soft systolic murmur over apex, no thrill or heave Abdomen: obese, soft, nontender Legs: decreased edema particularly in his upper legs but still w/ 2+ edema over his feet/lower legs, feet are weeping fluid and toes are macerated particularly over right foot Objective Last Vital Signs Temp 36.3 C L 06/09/23 07:28 Pulse 114 H 06/09/23 07:28 Resp 16 06/09/23 07:28 BP 106/78 06/09/23 07:28 Pulse Ox 99 06/09/23 07:28 Laboratory Results - last 24 hr 06/08/23 06/08/23 06/09/23 10:20 11:35 06:22 WBC 9.17 RBC 3.27 L Hgb 8.9 L Hct 29.3 L MCV 90 MCH 27.2 MCHC 30.4 L RDW 19.5 H Plt Count 224 MPV 8.6 Immature Gran % 1.0 Neutrophils % 76.3 Lymphocytes % 6.0 Monocytes % 9.6 Eosinophils % 6.4 Basophils % 0.7 Nucleated RBC % 0.0 Absolute Neutrophils 7.00 H Absolute Lymphocytes 0.55 L Absolute Monocytes 0.88 H Absolute Eosinophils 0.59 Absolute Basophils 0.06 Sodium 135 L Potassium 3.7 D Chloride 101 Carbon Dioxide 21.3 Anion Gap 12.7 H BUN 67 H Creatinine 2.2 H Est GFR (CKD-EPI 2020) 31.24 Glucose 73 L Calcium 9.4 Urine Legionella Ag Negative MRSA (TEM-PCR) Negative Time Spent with Patient Time Spent with Patient: 35-49 minutes Time was spent: preparing to see the patient(eg.review tests), ordering medications,tests, procedures, referring, communicating with other health healthcare economics consultant, indepentently interpreting results, counseling the patient and care coordination
[2023-06-09] MEDS: Insulin Aspart 300 UNITS/3 ML PEN SC (11:50)
--- NOTE | 2023-06-09 12:21 | PDOC.CMPRO ---
Date of service: 06/09/23 Care Management Progress Note Progress Note Text Progress Note Text: S/O: Demetrio was sitting up in a chair when meeting with CM. He stated that he appreciates the hospitalist trying to figure out what may be going on with him. He stated he does not feel any better than when first arriving 4 days ago. Demetrio explained to CM his past medical issues of having a mild heart attack while in ICU but otherwise not having previous heart issues. He explained his diet changes over the last couple of years to being low sodium with a lot of fruit options. Demetrio says he looks forward to his and grandson visiting later today. CM following. A: Demetrio is a 72 year old male admitted to [facility] 06/05/23 for CAP. P: Demetrio will discharge home when medically cleared. He will transport via private vehicle by family. He will follow up with his PCP and discharge plan of care instructions as prescribed. CM following. SDOH(Care Management) Screening Will the Patient Participate in the Screening?: Declined to provide
[2023-06-09] MEDS: cefTRIAXone 2 GM/50 ML BAG IVPB (20:20)
[2023-06-10] VITALS (7 sets, daily range): BP systolic 91–98; BP diastolic 50–77; PULSE 114–119; RESP 14–20; TEMP 35.8–36.9; O2SAT 95–99
--- NOTE | 2023-06-10 | DI.RAD_ITS ---
Exam(s) XR FOOT LT LIMITED EXAM: XR FOOT LT LIMITED CLINICAL HISTORY: evaluate for osteomyelitis. TECHNIQUE: 2D digital imaging was performed. Three views. COMPARISON: No exams were available for comparison FINDINGS: Exam is extremely limited by overlying material. BONES: No acute fracture is present. No gross evidence of bony destructive lesion is seen. JOINTS: No dislocation present. SOFT TISSUE: Dorsal soft tissue swelling. Vascular calcifications. IMPRESSION: Limited exam due to overlying material. No bony erosions are identified. DATA REPOSITORY: RADIATION DOSE DELIVERED:
--- NOTE | 2023-06-10 | DI.RAD_ITS ---
Exam(s) XR FOOT RT LIMITED EXAM: XR FOOT RT LIMITED CLINICAL HISTORY: evaluate for osteomyelitis. TECHNIQUE: 2D digital imaging was performed. Three views. COMPARISON: CR XR FOOT LT LIMITED from 06/10/2023 FINDINGS: The exam is extremely limited by overlying material. No gross fracture. No gross evidence of bony e rosions. Degenerative changes noted at the tarsal metatarsal joints. Mild hallux valgus. IMPRESSION: Extremely limited exam due to overlying material. No bony erosion is identified. DATA REPOSITORY: RADIATION DOSE DELIVERED:
[2023-06-10 00:42] LABS: Streptococcus Pneumoniae Ag, U Negative (Negative)
[2023-06-10 07:17] LABS: Abs Immature Grans 0.18 10^3/uL (0.0-0.06); Absolute Basophil Count 0.07 10^3/uL (0.0-0.2); Absolute Eosinophil Count 0.88 10^3/uL (0.0-0.7); Absolute Lymphocyte Count 0.67 10^3/uL (1.2-3.4); Basophils % 0.6; Eosinophils % 7.4; HCT 25.8 % (40.0-50.0); HGB 7.8 g/dL (13.5-17.5); Immature Grans % 1.5; Lymphocytes % 5.6; MCH 26.8 pg (27.0-33.0); MCHC 30.2 % (32.0-36.0); MCV 89 fL (80-95); MPV 9.1 fL (8.0-11.0); Monocytes % 10.1; Neutrophils % 74.8; Nucleated RBC 0.6 % (0.0-0.3); Platelet Count 269 10^3/uL (130-400); RBC 2.91 10^6/uL (4.36-5.78); RDW 19.5 % (11.8-14.1); RDW-SD 59.5 fL; WBC 11.88 10^3/uL (4.4-10.8)
[2023-06-10 07:18] LABS: Absolute Neutrophil Count 8.89 10^3/uL (1.2-6.7)
[2023-06-10] MEDS: Pantoprazole 40 MG TABCR PO ×2 (07:26→22:30)
[2023-06-10 08:06] LABS: Diff Comment Diff Reviewed; Hypochromasia 2+
[2023-06-10 08:07] LABS: Poikilocytes 1+
[2023-06-10] MEDS: Tiotropium/Olodaterol 10 PUFF INHALER 2 PUFF IH ×2 (08:20→09:18)
[2023-06-10] MEDS: Torsemide 20 MG TAB PO (08:25)
[2023-06-10] MEDS: Folic Acid 1 MG TAB PO (08:25)
[2023-06-10] MEDS: metOLazone 2.5 MG TAB PO (08:25)
[2023-06-10] MEDS: Metoprolol 12.5 MG TAB 37.5 MG PO ×3 (08:25→17:08)
[2023-06-10] MEDS: Spironolactone 25 MG TAB PO (08:25)
[2023-06-10] MEDS: Atorvastatin 40 MG TAB 80 MG PO (08:25)
[2023-06-10] MEDS: Gabapentin 100 MG CAP PO ×2 (08:26→22:29)
[2023-06-10] MEDS: Apixaban 5 MG TAB PO ×2 (08:26→22:29)
[2023-06-10] MEDS: Nystatin POWDER 15 GM JAR TP ×2 (08:26→22:49)
[2023-06-10] MEDS: Aspirin E.C. 81 MG TABEC PO (08:26)
[2023-06-10] MEDS: DOXYCYCLINE 100 MG in Normal Saline 100 ML IVPB (08:28)
[2023-06-10] MEDS: Mometasone 220 MCG 14 DOSE INHALER 1 PUFF IH (09:19)
--- NOTE | 2023-06-10 09:55 | PDOC.CMPRO ---
Date of service: 06/10/23 Care Management Progress Note Progress Note Text Progress Note Text: S/O: Demetrio was sitting up in a chair when meeting with CM. He reports he feels tired today and had been told some of his numbers had changed but not a lot. He reports he just had a conversation with his nurse Manny about good foods to eat and laughed that his son had just called him saying he was coming to visit this afternoon and had a surprise for him from [facility]. He described that his son works doing respite work and they have a niece that visits every other weekend, if not more,and made him a get well card; he smiled at this as he talked. CM following. A: Demetrio is a 72 year old male admitted to [facility] 06/05/23 for CAP. P: Demetrio will discharge home when medically cleared. He will transport via private vehicle by family. He will follow up with his PCP and discharge plan of care instructions as prescribed. CM following. SDOH(Care Management) Screening Will the Patient Participate in the Screening?: Declined to provide
[2023-06-10] MEDS: IRON SUCROSE COMPLEX 200 MG in Normal Saline 100 ML 400 MG IVPB (10:10)
[2023-06-10] MEDS: Normal Saline Flush 10 ML SYR IVP ×2 (10:13→10:54)
[2023-06-10 11:56] LABS: Anion Gap 16.4 mmol/L (3-11); BUN 78 mg/dL (7-18); CO2 20.6 mmol/L (21.0-32.0); CREATININE 3.1 mg/dL (0.70-1.30); Calcium 9.2 mg/dL (8.5-10.1); Chloride 99 mmol/L (98-107); Glucose 101 mg/dL (74-106); Potassium 3.7 mmol/L (3.5-5.1); Sodium 136 mmol/L (136-145)
--- NOTE | 2023-06-10 12:00 | PGE_ITS ---
Date of Service Date of service: 06/10/23 Time of Service: 12:00 Assessment and Plan Assessment and plan (1) Severe sepsis: Status: Acute Assessment and plan: I think that the primary etiology of his sepsis was his UTI w/ E coli that was multidrug resistant (Ampicillin/sulbactam, Levaquin and Cipro) but has responded well to the Cefepime and now is on Ceftrixone. Counting the Zosyn he had in the ED, he has now had 5 days of appropriate coverage for his infection. I think that given his puritic rash we can stop all antibiotics at this point and see if his rash resolves. I will continue to monitor him for any fevers or rising inflammatory markers to look for unrresolved infection. I am sure that the E coli UTI has been adequately treated. His blood culture were no growth. My only remaining concern is whether or not he has residual infection in his feet. I have had nursing try to get any wound culture results from [facility]. Dr. Hernandez seemed to recall that notes from [facility] had indicated MSSA infection of the skin. He was dc on Levaquin. For now I will watch him while off antibiotics for next 48 hours. (2) Multifocal pneumonia: Status: Suspected Assessment and plan: I think his pulmonary infiltrates were more likely d/t CHF. He has diuresed well. However, he had rise in his BUN and creatinine overnight. I will repeat his POCUS exam this afternoon to do a VEXUS study and see if his hepatic and renal congestion has resolved. (3) Acute kidney injury superimposed on chronic kidney disease: Status: Acute Assessment and plan: was improving but BUN and creatinine britney overnight to 78 and 3.1, I will repeat his VEXUS study today. hold diuretics in the interim (although he has already had his zaroxolyn, spironolactone and morning dose of torsemide. (4) Cardiomyopathy: Status: Chronic Assessment and plan: patient has hx of HFREF echo from 06/06/22 demonstrated LVEF 35% w/ diffuse global LV hypokinesis, normal RV size and probable normal RV function w/ moderate MR and mild to moderate TR. He has known ischemic HD w/ prior CABG x 3 vessel, he has chronic bilateral leg edema which has led to chronic infections of his legs and he spent 10 days at [facility] in [place] last month. he was discharged home on Levaquin. he had recent echo done at [facility] that has shown improvement in his HFREF w/ LVEF now at 55-60%, mild concentric LVH no RWMA, normal LA size and mild GAUDENCIO, however RV is now moderately dilated w/ low normal global RV systolic function and elevated RVSP 40 to 45 mm and moderate to severe TR w/ mild AI and mild to moderate which is new. 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 As above. continue w/ diuretics (torsemide 20 mg bid, spironolactone 25 mg daily, zaroxolyn 2.5 mg daily) Currently holding diuretics until repeat VEXUS study is done, given the increase in his BUN and creatinine. Qualifiers: Cardiomyopathy type: unspecified Qualified Code(s): I42.9 - Cardiomyopathy, unspecified (5) Lymphedema: Status: Acute Assessment and plan: chronic but worse recently d/t inadequate diuresis although today he is showing signs of improved bilateral leg edema (6) Atrial fibrillation: Status: Chronic Assessment and plan: he is in atrial flutter at 2:1 block, despite increase in his metoprolol dose, we have not been able to control his rate or rhythm. He should be referred for ablation. I will trial him on amiodarone as his BP can not tolerate increasing his dosing of his metoprolol. 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 (11) Iron deficiency anemia: Status: Acute Assessment and plan: continue venofer for one more dose today Qualifiers: Iron deficiency anemia type: unspecified iron deficiency Qualified Code(s): D50.9 - Iron deficiency anemia, unspecified (12) Pruritus: Status: Acute Assessment and plan: likely drug rash; stop antibiotics and monitor Subjective Subjective Interval history since last seen: Patient denies any dyspnea. He can not see any difference in his leg edema although per my exam there has been significant improvmeent. He now complains of puritic rash over chest, back and arms. He says that this itching started couple days ago, although this was the first that he has made me aware of it. Exam Narrative Exam Narrative: Mejia is sitting up in his chair eating lunch. No acute distress other than the puritic rash Lungs: basilar rales, upper martin are clear Heart: tachycardic, but regular, soft systolic murmur at apex Abdomen: obese, soft, nontender Legs: no edema of his thighs, the pretibial edema has improved, now there is some definition of the anterior tibial surface but still has some pitting edema over both lower legs, although difficult to assess w/ him wearing Unna boot dressings over his lower legs Skin: he has small puritic red rash over his chest, back and arms; this has the appearance of a drug rash Objective Last Vital Signs Temp 36.6 C 06/10/23 07:39 Pulse 114 H 06/10/23 07:39 Resp 16 06/10/23 07:39 BP 94/52 L 06/10/23 07:39 Pulse Ox 98 06/10/23 07:39 Laboratory Results - last 24 hr 06/08/23 06/10/23 06/10/23 11:35 05:35 06:35 WBC 11.88 H RBC 2.91 L Hgb 7.8 L Hct 25.8 L MCV 89 MCH 26.8 L MCHC 30.2 L RDW 19.5 H Plt Count 269 MPV 9.1 Immature Gran % 1.5 Neutrophils % 74.8 Lymphocytes % 5.6 Monocytes % 10.1 Eosinophils % 7.4 Basophils % 0.6 Nucleated RBC % 0.6 H Absolute Neutrophils 8.89 H Absolute Lymphocytes 0.67 L Absolute Monocytes 1.20 H Absolute Eosinophils 0.88 H Absolute Basophils 0.07 RBC Morphology See Below Hypochromasia 2+ Poikilocytosis 1+ Sodium 136 Potassium 3.7 Chloride 99 Carbon Dioxide 20.6 L Anion Gap 16.4 H BUN 78 H Creatinine 3.1 H D Est GFR (CKD-EPI 2020) 20.70 Glucose 101 Calcium 9.2 Ur Strep pneumoniae Ag Negative Time Spent with Patient Time Spent with Patient: 35-49 minutes Time was spent: preparing to see the patient(eg.review tests), ordering medications,tests, procedures, referring, communicating with other health healthcare applications analyst, indepentently interpreting results, counseling the patient and care coordination
[2023-06-10] MEDS: Amiodarone 200 MG TAB 400 MG PO ×2 (12:43→22:43)
--- NOTE | 2023-06-10 17:01 | IN_ITS ---
PT Notes Visit Reasons: Community-Acquired Pneumonia Physical Therapy Inpatient Initial Evaluation Date: 06/11/2023 Referring Doctor: Dakota Garcia MD PT Orders: PT CONSULT: Extended Stay Weakness Precautions: Fall. Standard. Activity as tolerated. Patient Profile/Admitting Diagnosis: Patient is a 72-year-old male patient who presened to the ED on 06/05/2023 due to low blood pressure and generealized wekaness. Patient is admitted for management of multifocal pneumonia, sepsis syndrome, cardiomyopathy, lymphedema due to chronic venous insufficiency, AF, essential hypertension, type II DM, COPD, NAFLD, hyperkalemia, and acute kidney injury superimposed on CKD. PMHX: All Active Problems Pneumonia (Acute) Acute kidney injury (Acute) Hyperkalemia (Acute) Multifocal pneumonia (Acute) Lymphedema (Acute) PVD (peripheral vascular disease) (Chronic) Edema (Acute) Venous (peripheral) insufficiency (Acute) Erythematous rash (Acute) Chronic venous stasis dermatitis (Acute) Skin tear of left lower leg without complication (Acute) left forefoot, just distal to ankle fold Edema of lower extremity (Acute) presumed venous insuff; PAD? Lymphedema? Weeks TBD Tinea (Acute) NAFLD (nonalcoholic fatty liver disease) (Acute) [facility] Gastro Note 12/25/22 Iron deficiency anemia (Acute) Pleural nodule (Acute) Renal calculus, left (Acute) Hepatic steatosis (Acute) Ascites (Acute) Pleural effusion (Acute 06/26/22) Cardiomyopathy (Acute) CAD (coronary artery disease) (Chronic) Corns and callosities (Acute) Nail dystrophy (Acute) Hypercapnic respiratory failure (Acute) Heart failure, systolic, chronic (Acute) Recurrent infections (Chronic) H/o recurrent leg cellulitis and sepsisCHF (congestive heart failure) (Acute) 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 2 diabetes mellitus (Chronic ~10/2019) Atrial fibrillation (Chronic) Psoriasis (Chronic) Tinea pedis (Acute 10/29/20) [facility] Inf DiseaseVitamin B12 deficiency (Chronic) Stasis dermatitis of both legs (Acute) CKD (chronic kidney disease) (Acute) CKD3, Cr 1.4-1.9 [id number] Essential hypertension (Chronic) Type 2 diabetes mellitus (Chronic) Venous insufficiency (Chronic) COPD (chronic obstructive pulmonary disease) with emphysema (Chronic) Obesity (Chronic) Hyperlipidemia, unspecified (Chronic) Tobacco use disorder (Chronic) Medical History Palliative care patient NSTEMI (non-ST elevated myocardial infarction) Sepsis syndrome Hypothyroidism Surgical History History of abdominal paracentesis (~08/27/22) 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 Independent with mobility ADL perfor [place] using FWW and 4WW. Equipment Owned/DME: FWW, 4WW Subjective: Pain in B legs and feet. Stated that he has had to deal with his swelling for four and a half years now. Objective: General Observation: Unna boot in place. High BMI. Telemetry monitoring in place. Unna boot in B legs and feet. Toes discolored and swollen. Mental Status: Alert and oriented as to person, place, time, and purpose. Able to pay attention, focus, and respond appropriately. Pain: 2-3/10 in B legs Vital Signs: WNL as closely monitored by nursing staff ROM: Right Upper Extremity: Shoulder Flexion WFL. Shoulder abduction WFL. Elbow flexion WFL. Wrist flexion WFL. Functional opening and closing of hand WFL. Left Upper Extremity: Shoulder Flexion WFL. Shoulder abduction WFL. Elbow flexion WFL. Wrist flexion WFL. Functional opening and closing of hand WFL. Right Lower Extremity: Hip flexion allows up to 120 degrees. Hip abduction WFL. Knee flexion 30 degrees to 90 degrees. Ankle dorsiflexion to neutral only. Ankle plantarflexion WFL. Left Lower Extremity: Hip flexion allows up to 120 degrees. Hip abduction WFL. Knee flexion 30 degrees to 90 degrees. Ankle dorsiflexion to neutral only. Ankle plantarflexion WFL. Strength: Right Upper Extremity: Shoulder flexors 4-/5. Shoulder abductors 4-/5. Elbow flexors 4-/5. Elbow extensors 4-/5. Felled Seam Operator Chainstitch strong. Left Upper Extremity: Shoulder flexors 4-/5. Shoulder abductors 4-/5. Elbow flexors 4-/5. Elbow extensors 4-/5. Felled Seam Operator Chainstitch strong. Right Lower Extremity: Hip flexors 3-/5. Hip abductors 3-/5. Knee flexors 3-/5. Knee extensors 3-/5. Ankle dorsiflexors 3-/5. Ankle plantarflexors 4-/5. Left Lower Extremity: Hip flexors 3-/5. Hip abductors 3-/5. Knee flexors 3-/5. Knee extensors 3-/5. Ankle dorsiflexors 3-/5. Ankle plantarflexors 4-/5. Bed Mobility/Transfers: Minimal cueing provided for use of B hands as needed for support, movement sequence, AD management, and posture to reduce fall risk and minimize pain report Supine to sit minimal assist with HOB at 30 degrees Sit to stand minimal assist assist Stand to sit contact guard assist Gait: Instructed patient with level surface ambulation of 15 feet requiring minimal assist. Maribell decreased. Step height decreased. Step length decreased. Short of breath. Pain in B legs and feet. Balance: Static Sitting: Normal Dynamic Sitting: Normal Static Standing: Fair Dynamic Standing: Fair Special Tests: Mobility Limitations Standardized Measure [facility] AM-PAC 6 clicks Basic Mobility Inpatient Short Form: Raw Score: 18 CMS Score: 47% deficit Informed Consent/Education: Patient was instructed in purpose of PT consult and plan of care. Agreeable to proceed with established PT POC to achieve personal goals. ASSESSMENT: Dr. Garcia came in to patient's room and needed to perform POCUS testing to re-asses hepatic and renal function. PT evaluation discontinued until testing is completed. still with patient as of 17:55 PM. PT evaluation to be continued tomorrow morning. Patient with stage III secondary phlebolymphedema with open areas now being managed by sandee ford. Ambulation painful due to pre-existing swelling in B legs. Closely monitor vital signs during mobility ADL performance. Requires use of FWW for all mobility ADL performance. Patient presents with clinical signs and symptoms consistent with current/admitting diagnoses that have resulted to mobility limitations, gait instability, generalized weakness, and overall ADL decline as demonstrated by the following impairment level findings: 1. Decreased strength to B UE/LE major muscle groups 2. Impaired sitting/standing balance 3. Impaired activity tolerance 4. Swelling, heaviness, and pain in B LE 5. Open areas to B legs and feet Impairments are contributing to the following functional limitations: 1. Decline in bed mobility skills 2. Decline in transfer skills 3. Difficulty with ambulation without assistive device and physical assistance 4. Increased completion time for mobility ADL performance 5. Increased risk for falls 6. Difficulty with managing steps alone safely Patient is assessed as a 36945 high complexity based on the following: History: 71-year-old male with past medical history as indicated above Examination: Demonstrable impairment in strength, balance, and mobility level with underlying impairments and functional limitations as exhibited above as well as deficit score of 47% utilizing the [facility] Mobility Inpatient Short Form Presentation: Evolving Decision Makin high complexity Goals: Goals X1 week 1. Supine-Sit independent 2. Sit-Supine independent 3. Sit-Stand independent 4. Stand-Sit independent with 4WW 5. Bed-Chair independent with 4WW 6. Chair-Bed independent with 4WW 7. Independent gait on level surface with use of 4WW for at least 200 feet without report of pain nor dyspnea 8. Independent stair negotiation while holding onto B rails for at least 3 steps without report of pain nor dyspnea 9. Independent with home exercise program 10. Good static and dynamic standing balance/tolerance Plan of Care/Treatment Plan: 1-2x/day, 7 days/week x 1 week. Plan of care has been reviewed with the DIRECTOR OF SECURITIES AND REAL ESTATE providing the service under Physical Therapy direction. Initiate Physical Therapy intervention for pain management as needed, strengthening, bed mobility, transfers, gait, stairs, balance training, and use of assistive device. DISCHARGE RECOMMENDATIONS: [] Home with no services [] [] Home with services [] [X] Home with outpatient PT. Patient will benefit from complete decongestive therapy at an outpatient basis to manage secondary stage III phlebolymphedema. [] SNF for continued rehabilitation [] [] [facility] [] [] SNF versus LTC based on ability to participate and progress [] [X] May benefit from home safety evaluation to reduce fall risk at home. TREATMENT CODE/TIME: 03418 x 16 minutes (17:01-17:14) Thank you for the opportunity to participate in the care of this patient. Danica Arreola PT, DPT, CLT [facility] [place], [place]
[2023-06-10] MEDS: Furosemide 100 MG/10 ML VIAL 80 MG IVP (22:28)
[2023-06-10] MEDS: diphenhydrAMINE 25 MG CAP PO (22:42)
[2023-06-11] VITALS (8 sets, daily range): BP systolic 76–99; BP diastolic 55–72; PULSE 54–115; RESP 12–20; TEMP 35.8–36.7; O2SAT 97–100
[2023-06-11 06:49] LABS: Abs Immature Grans 0.24 10^3/uL (0.0-0.06); Absolute Basophil Count 0.09 10^3/uL (0.0-0.2); Absolute Eosinophil Count 1.02 10^3/uL (0.0-0.7); Absolute Lymphocyte Count 0.73 10^3/uL (1.2-3.4); Absolute Monocyte Count 1.41 10^3/uL (0.1-0.8); Basophils % 0.7; Eosinophils % 8.1; HCT 28.8 % (40.0-50.0); HGB 8.8 g/dL (13.5-17.5); Immature Grans % 1.9; Lymphocytes % 5.8; MCH 27.2 pg (27.0-33.0); MCHC 30.6 % (32.0-36.0); MCV 89 fL (80-95); MPV 8.8 fL (8.0-11.0); Monocytes % 11.2; Neutrophils % 72.3; Nucleated RBC 0.4 % (0.0-0.3); Platelet Count 267 10^3/uL (130-400); RBC 3.23 10^6/uL (4.36-5.78); RDW 20.1 % (11.8-14.1); RDW-SD 61.2 fL; WBC 12.62 10^3/uL (4.4-10.8)
[2023-06-11 07:00] LABS: Absolute Neutrophil Count 9.12 10^3/uL (1.2-6.7)
[2023-06-11 07:24] LABS: Anion Gap 14.7 mmol/L (3-11); C-Reactive Protein 3.68 mg/dL (<or=0.5); CO2 24.3 mmol/L (21.0-32.0); CREATININE 3.1 mg/dL (0.70-1.30); Calcium 9.4 mg/dL (8.5-10.1); Chloride 99 mmol/L (98-107); Glucose 120 mg/dL (74-106); NT-proBNP 4986 pg/mL (<300); Potassium 3.6 mmol/L (3.5-5.1); Sodium 138 mmol/L (136-145)
[2023-06-11 07:30] LABS: BUN 84 mg/dL (7-18)
[2023-06-11 07:34] LABS: Procalcitonin 0.2 ng/mL
[2023-06-11] MEDS: Tiotropium/Olodaterol 10 PUFF INHALER 2 PUFF IH (07:55)
[2023-06-11] MEDS: Mometasone 220 MCG 14 DOSE INHALER 1 PUFF IH ×2 (07:57→19:48)
--- NOTE | 2023-06-11 08:41 | PT.INTREAT ---
PT Notes Visit Reasons: Community-Acquired Pneumonia Physical Therapy Inpatient Treatment Note Date: 06/11/2023 Precautions: Fall. Standard. Activity as tolerated. Subjective: Feels better today. Still reported pain in B legs and feet. Objective: General Observation: High BMI. Telemetry monitoring in place. Unna boot in B legs and feet. Toes discolored and swollen. Seated on bedside chair. Mental Status: Alert and oriented as to person, place, time, and purpose. Able to pay attention, focus, and respond appropriately. Pain: 2-3/10 in B legs Vital Signs: WNL as closely monitored by nursing staff Bed Mobility/Transfers: Minimal cueing provided for use of B hands as needed for support, movement sequence, AD management, and posture to reduce fall risk and minimize pain report Supine to sit minimal assist with HOB at 30 degrees Sit to stand minimal assist assist Stand to sit contact guard assist Gait: Instructed patient with level surface ambulation of 15 feet requiring minimal assist. Maribell decreased. Step height decreased. Step length decreased. Short of breath. Pain in B legs and feet. Balance: Static Sitting: Normal Dynamic Sitting: Normal Static Standing: Fair Dynamic Standing: Fair ASSESSMENT: Patient with stage III secondary phlebolymphedema with open areas now being managed by unna boot. Ambulation painful due to pre-existing swelling in B legs. Closely monitor vital signs during mobility ADL performance. Requires use of FWW for all mobility ADL performance. Patient presents with clinical signs and symptoms consistent with current/admitting diagnoses that have resulted to mobility limitations, gait instability, generalized weakness, and overall ADL decline as demonstrated by the following impairment level findings: 1. Decreased strength to B UE/LE major muscle groups 2. Impaired sitting/standing balance 3. Impaired activity tolerance 4. Swelling, heaviness, and pain in B LE 5. Open areas to B legs and feet Impairments are contributing to the following functional limitations: 1. Decline in bed mobility skills 2. Decline in transfer skills 3. Difficulty with ambulation without assistive device and physical assistance 4. Increased completion time for mobility ADL performance 5. Increased risk for falls 6. Difficulty with managing steps alone safely Plan of Care/Treatment Plan: 1-2x/day, 7 days/week x 1 week. Plan of care has been reviewed with the MARKETING SERVICES REP providing the service under Physical Therapy direction. Initiate Physical Therapy intervention for pain management as needed, strengthening, bed mobility, transfers, gait, stairs, balance training, and use of assistive device. DISCHARGE RECOMMENDATIONS: [] Home with no services [] [] Home with services [] [X] Home with outpatient PT. Patient will benefit from complete decongestive therapy at an outpatient basis to manage secondary stage III phlebolymphedema. [] SNF for continued rehabilitation [] [] [facility] [] [] SNF versus LTC based on ability to participate and progress [] [X] May benefit from home safety evaluation to reduce fall risk at home. TREATMENT CODE/TIME: 85874 x 15 minutes (8:41-8:56)
[2023-06-11] MEDS: Atorvastatin 40 MG TAB 80 MG PO (09:36)
[2023-06-11] MEDS: Pantoprazole 40 MG TABCR PO ×2 (09:36→20:21)
[2023-06-11] MEDS: Amiodarone 200 MG TAB 400 MG PO ×2 (09:36→20:21)
[2023-06-11] MEDS: Apixaban 5 MG TAB PO ×2 (09:36→20:20)
[2023-06-11] MEDS: Folic Acid 1 MG TAB PO (09:36)
[2023-06-11] MEDS: Aspirin E.C. 81 MG TABEC PO (09:37)
[2023-06-11] MEDS: Nystatin POWDER 15 GM JAR TP ×2 (09:37→20:21)
[2023-06-11] MEDS: Gabapentin 100 MG CAP PO ×2 (09:37→20:21)
[2023-06-11] MEDS: Normal Saline Flush 10 ML SYR IVP ×5 (09:46→20:21)
[2023-06-11] MEDS: Insulin Aspart 300 UNITS/3 ML PEN SC ×2 (12:02→17:09)
--- NOTE | 2023-06-11 12:45 | RT.EKG_ITS ---
APPROVED REPORT Exam: Resting ECG Reason for Exam: atrial flutter Patient Location: I HR:98 bpm ECG Measurements Heart Rate 98 AXIS MT 127 P -10 QRSd 139 QRS -100 QT 356 T 53 QTc 455 Conclusion Atrial flutter...rate> 99 Ventricular trigeminy...trigeminy string>6 w/ V complexes Right bundle branch block...QRSd>120, terminal axis(90,270) Anterolateral infarct, old...Q>40mS, abnrm ST-T, V3-V6,I,aVL
[2023-06-11] MEDS: ALBUMIN HUMAN 25 GM/100 ML BTL IV ×2 (13:21→15:49)
--- NOTE | 2023-06-11 14:16 | CMPROGNOTE_ITS ---
Date of service: 06/11/23 Care Management Progress Note Progress Note Text Progress Note Text: S/O: Demetrio was sitting in a chair eating lunch when meeting with CM. CM and Pt discussed foods that Demetrio has had inpatient that he knows are good for him that he has as an option to have at home as well. He described he slept the best last night than he had his whole stay but still is feeling tired today and reports falling asleep during his last vital check where he had to be woken up two times. Demetrio reports MD informed him his protein is low so he discussed what foods could help increase protein levels. Demetrio informed his will be in later to visit along with grandisauro Keene. He shared he enjoyed his visit with his son yesterday who brought him a much needed back coating engineer. CM following. A: Demetrio is a 72 year old male admitted to [facility] 06/05/23 for CAP. P: Demetrio will discharge home when medically cleared. He will transport via private vehicle by family. He will follow up with his PCP and discharge plan of care instructions as prescribed. CM following. SDOH(Care Management) Screening Will the Patient Participate in the Screening?: Declined to provide
--- NOTE | 2023-06-11 14:21 | PGE_ITS ---
Date of Service Date of service: 06/11/23 Time of Service: 14:21 Assessment and Plan Assessment and plan (1) Severe sepsis: Status: Acute Assessment and plan: patient presented w/ signs/symptoms of sepsis, reportedly pneumonia but actually was urinary source; resistant E coli which has responded to cefepime and then ceftriaxone. However he developed what appears to be a drug rash and I have stopped his antibiotics. I will continue to monitor him w/ daily CBC, monitor inflammatory markers. I am concerned about his feet but unfortunately we do not have podiatry this week. I will try soaks to his feet along w/ ABD pad, try to get rid of the cursted skin and apply moisturizing agent. (2) Acute kidney injury superimposed on chronic kidney disease: Status: Acute Assessment and plan: worsening BUN and creatinine. will give midodrine and albumin to try to raise his BP while continue to diurese him to off load the congestion on his liver and kidneys and decrease his bilateral leg edema. (3) Cardiomyopathy: Status: Chronic Assessment and plan: patient has hx of HFREF echo from 06/06/22 demonstrated LVEF 35% w/ diffuse global LV hypokinesis, normal RV size and probable normal RV function w/ moderate MR and mild to moderate TR. He has known ischemic HD w/ prior CABG x 3 vessel, he has chronic bilateral leg edema which has led to chronic infections of his legs and he spent 10 days at [facility] in [place] last month. he was discharged home on Levaquin. he had recent echo done at [facility] that has shown improvement in his HFREF w/ LVEF now at 55-60%, mild concentric LVH no RWMA, normal LA size and mild GAUDENCIO, however RV is now moderately dilated w/ low normal global RV systolic function and elevated RVSP 40 to 45 mm and moderate to severe TR w/ mild AI and mild to moderate which is new. 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 I repeated his VEXUS study yesterday evening and he still has systolic reversal of his hepatic venous flow and increased pulsatility in his renal and his portal veins, thus he has increased end organ congestion. Hopefully by increasing his systolic arterial pressure w/ albumin and midodrine, we can get adequate forward flow and by decreasing venous congestion w/ diuretics we can improve renal and hepatic function. Qualifiers: Cardiomyopathy type: unspecified Qualified Code(s): I42.9 - Cardiomyopathy, unspecified (4) Pruritus: Status: Acute Assessment and plan: likely drug rash; stop antibiotics and monitor (5) Lymphedema: Status: Acute Assessment and plan: chronic but worse recently d/t inadequate diuresis although today he is showing signs of improved bilateral leg edema (6) Atrial fibrillation: Status: Chronic Assessment and plan: he is in atrial flutter at 2:1 block, despite increase in his metoprolol dose, we have not been able to control his rate or rhythm. He should be referred for ablation. I will trial him on amiodarone as his BP can not tolerate increasing his dosing of his metoprolol. apixaban Qualifiers: Atrial fibrillation type: permanent Qualified Code(s): I48.21 - Permanent atrial fibrillation (7) Essential hypertension: Status: Chronic Assessment and plan: diuretics and BB as noted above (8) Type 2 diabetes mellitus: Status: Chronic Assessment and plan: metformin on hold d/t LORETO/CKD; continue novolog sliding scale; glucose 120 to 180. Qualifiers: Diabetes mellitus chcf insulin use: without chcf use Diabetes mellitus complication status: with hyperglycemia Qualified Code(s): E11.65 - Type 2 diabetes mellitus with hyperglycemia (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 (11) Iron deficiency anemia: Status: Acute Assessment and plan: patient has completed venofer treatment. will monitor his anemia Qualifiers: Iron deficiency anemia type: unspecified iron deficiency Qualified Code(s): D50.9 - Iron deficiency anemia, unspecified Subjective Subjective Interval history since last seen: Patient continues to have weeping fluid from his feet, skin is excoriated, crusted and purplish discoloration although not cool. He does not have dyspnea or chest symptoms. His BP is on the low side today. Exam Narrative Exam Narrative: Mejia is alert/oriented, sitting up in his chair, no distress; puritic rash is improving, less itchy Lungs: clear anteriorly Heart: remains tachycardic, rhythm remains atrial flutter, in the 110's Abdomen: obese, soft, nontender Legs: edema of his upper legs is resolved, lower legs however remain edematous, 2+ at the upper tibia and 3 + at the feet and ankles, toes and feet dusky/purplish but remain warm, pedal pulses unable to palpate; skin is excoriated, dry, crusted w/ some cracks developing in the plantar surfaces of right toes 1 to 3. Skin: the puritic rash over his arms, chest and abdomen appears to be improved. Objective Last Vital Signs Temp 36.6 C 06/11/23 12:29 Pulse 54 L 06/11/23 12:29 Resp 16 06/11/23 12:29 BP 82/56 L 06/11/23 12:29 Pulse Ox 99 06/11/23 12:29 Laboratory Results - last 24 hr 06/11/23 06/11/23 06:40 06:40 WBC 12.62 H RBC 3.23 L Hgb 8.8 L Hct 28.8 L MCV 89 MCH 27.2 MCHC 30.6 L RDW 20.1 H Plt Count 267 MPV 8.8 Immature Gran % 1.9 Neutrophils % 72.3 Lymphocytes % 5.8 Monocytes % 11.2 Eosinophils % 8.1 Basophils % 0.7 Nucleated RBC % 0.4 H Absolute Neutrophils 9.12 H Absolute Lymphocytes 0.73 L Absolute Monocytes 1.41 H Absolute Eosinophils 1.02 H Absolute Basophils 0.09 Sodium 138 Potassium 3.6 Chloride 99 Carbon Dioxide 24.3 Anion Gap 14.7 H BUN 84 H* Creatinine 3.1 H Est GFR (CKD-EPI 2020) 20.70 Glucose 120 H Calcium 9.4 C-Reactive Protein 3.68 H NT-Pro-B Natriuret Pep Cancelled 4986 H Procalcitonin 0.2 Time Spent with Patient Time Spent with Patient: 35-49 minutes Time was spent: preparing to see the patient(eg.review tests), ordering medications,tests, procedures, referring, communicating with other health career and technology education teacher, indepentently interpreting results, counseling the patient and care coordination
[2023-06-11] MEDS: Midodrine 2.5 MG TAB 5 MG PO ×2 (15:49→20:20)
--- NOTE | 2023-06-11 17:04 | PT.INTREAT ---
PT Notes Visit Reasons: Community-Acquired Pneumonia Date: 06/11/23 PRECAUTIONS: Fall. Standard. Activity as tolerated. SUBJECTIVE: Pt approached multiple time during the course of the afternoon, pt viisiting with family later in the afternoon but was about to leave making the timing just right for pt to agree with participating with therapy session. OBJECTIVE: ?agreed to participate later in the afternoon, Luna catheter ? PAIN: yes bilateral LE did not provide pain scale. VITALS: closely monitored by nursing? Therapeutic Activities [id number]: Direct one-on-one instruction in dynamic activities to improve functional performance. ?? BED MOBILITY/TRANSFERS? Rolling L/R: supervision Supine-sit: ? supervision? Sit-supine: ? ?supervision ? Sit-stand: ? ?SBA ? Stand-sit: ??SBA ? Bed-Chair:? ?SBA ? Chair-bed: SBA Provided skilled cues and instruction on performance and technique throughout. Gait Training [id number]: Direct one-on-one instruction and skilled instruction in: Employing an assistive device Modified weight-bearing status Movement sequencing Turning and movement with proper form Provided verbal cues for equipment management and technique Provided instruction in gait pattern Patient education regarding pacing and breathing techniques to maximize activity tolerance? GAIT? Assistive Device: FWW ? Weight bearing: WBAT Assist: CGA ? Distance:??30'x2 ? Deviation: ?antalgic gait ? Therapeutic Exercises [id number]: Direct one-on-one instruction in therapeutic exercises to develop strength, endurance, range of motion and flexibility. Exercises: Seated marching [id number] SAQ/LAQ [id number] Seated hip abduction/adduction [id number] Standing static balance activity weight shifting L/R, Front/back Standing marching [id number] Provided skilled instruction in proper exercise performance Provided skilled manual cues to facilitate proper muscle recruitment and/or form: ASSESSMENT:?Pt had the urge to use the commode after moving from seated to standing, static standing for perineal care provided by nursing, Transfer training going from bedside commode to recliner, recliner to EOB and vice versa PLAN: Continue with balance training, global strengthening and general conditioning for improved safety, mobility and activity tolerance until pt is ready for DC. TREATMENT CODE/TIME: [id number] 45mins (4:15-5:00pm)
[2023-06-11] MEDS: Furosemide 100 MG/10 ML VIAL 80 MG IVP (17:43)
[2023-06-12] VITALS (9 sets, daily range): BP systolic 74–110; BP diastolic 52–70; PULSE 106–111; RESP 14–18; TEMP 36–36.6; O2SAT 98–99
--- NOTE | 2023-06-12 | DI.RAD_ITS ---
Exam(s) XR PORTABLE CHEST AP EXAM: XR PORTABLE CHEST AP CLINICAL HISTORY: CHF TECHNIQUE: 2D digital imaging was performed of the chest. One image was obtained. An AP view was ob tained. COMPARISON: CR,XR XR PORTABLE CHEST AP from 06/11/2022 CR,XR XR CHEST 2V PA LATERAL from 06/05/2023 FINDINGS: MEDIASTINUM: Normal. HEART: Normal. Status post CABG. PULMONARY VASCULATURE: Normal. LUNGS: Clear. PLEURAL SPACE: No pleural effusion or pneumothorax. BONE:Within normal limits for the patient's age. OTHER FINDINGS:Normal. IMPRESSION: No acute pulmonary findings. DATA REPOSITORY: RADIATION DOSE DELIVERED:
[2023-06-12] MEDS: ALBUMIN HUMAN 25 GM/100 ML BTL IV ×4 (00:11→21:01)
[2023-06-12] MEDS: Pantoprazole 40 MG TABCR PO ×2 (06:10→20:59)
[2023-06-12] MEDS: Furosemide 100 MG/10 ML VIAL 80 MG IVP ×2 (06:21→17:09)
[2023-06-12 07:15] LABS: Anion Gap 13.2 mmol/L (3-11); CO2 23.8 mmol/L (21.0-32.0); CREATININE 3.3 mg/dL (0.70-1.30); Calcium 9.3 mg/dL (8.5-10.1); Chloride 99 mmol/L (98-107); Glucose 137 mg/dL (74-106); Potassium 3.5 mmol/L (3.5-5.1); Sodium 136 mmol/L (136-145)
[2023-06-12 07:22] LABS: BUN 89 mg/dL (7-18)
[2023-06-12 08:01] LABS: Lab Add On Test DONE
[2023-06-12] MEDS: Mometasone 220 MCG 14 DOSE INHALER 1 PUFF IH ×2 (08:14→20:31)
[2023-06-12] MEDS: Tiotropium/Olodaterol 10 PUFF INHALER 2 PUFF IH (08:15)
[2023-06-12 08:23] LABS: C-Reactive Protein 2.26 mg/dL (<or=0.5)
[2023-06-12] MEDS: Gabapentin 100 MG CAP PO ×2 (08:50→20:59)
[2023-06-12] MEDS: Aspirin E.C. 81 MG TABEC PO (08:50)
[2023-06-12] MEDS: Midodrine 2.5 MG TAB 5 MG PO ×3 (08:50→20:59)
[2023-06-12] MEDS: Folic Acid 1 MG TAB PO (08:51)
[2023-06-12] MEDS: Nystatin POWDER 15 GM JAR TP ×2 (08:51→22:08)
[2023-06-12] MEDS: Apixaban 5 MG TAB PO ×2 (08:51→21:00)
[2023-06-12] MEDS: Atorvastatin 40 MG TAB 80 MG PO (08:51)
[2023-06-12] MEDS: Amiodarone 200 MG TAB 400 MG PO ×2 (08:51→21:00)
[2023-06-12] MEDS: Insulin Aspart 300 UNITS/3 ML PEN SC ×3 (09:03→17:09)
[2023-06-12] MEDS: Normal Saline Flush 10 ML SYR IVP ×3 (09:04→21:07)
--- NOTE | 2023-06-12 09:27 | PDOC.CMPRO ---
Date of service: 06/12/23 Care Management Progress Note Progress Note Text Progress Note Text: S/O: Demetrio was sitting up in a chair when talking with CM. Young reports he had a visit from his sister and brother in law who live in [place] who came all the way to see Demetrio. CM interaction brief to allow chest ultrasound procedure. A: Demetrio is a 72 year old male admitted to [facility] 06/05/23 for CAP. P: Demetrio will discharge home when medically cleared. He will transport via private vehicle by family. He will follow up with his PCP and discharge plan of care instructions as prescribed. CM following. SDOH(Care Management) Screening Will the Patient Participate in the Screening?: Declined to provide
--- NOTE | 2023-06-12 11:12 | PTTR_ITS ---
PT Notes Visit Reasons: Community-Acquired Pneumonia Inpatient Physical Therapy Treatment Note [facility] Date: 06/12/23 PRECAUTIONS:Standard SUBJECTIVE: Pt reports that he is very tired. He states that he is not sleeping at night and he foot is leaking and he is constipated. Pt reports he would only like to complete PT 1x today because he is tired. OBJECTIVE: Therapeutic Activities (95428e[1]): Direct one-on-one instruction in dynamic act ivities to improve functional performance. ? BED MOBILITY/TRANSFERS? Sit-stand: CGA? Stand-sit: CGA ? GAIT? Assistive Device: FWW ? Weight bearing: Full Assist: CGA? Distance:? Marching in place and static standing to fatigue ? Therapeutic Exercises ([id number][]): Direct one-on-one instruction in therapeutic exercises to develop strength, endurance, range of motion and flexibility. ? Exercises ? Seated rowing x 10 ASSESSMENT:? Pt was very fatigued today and uncomfortable. PLAN: Cont as per PT POC. TREATMENT CODE/TIME: 11-11:10 (10) TA
[2023-06-12] MEDS: Polyethylene Glycol 3350 17 GM PACKET PO (12:28)
--- NOTE | 2023-06-12 15:46 | W.PM.PROGNOT ---
Date of Service Date of service: 06/12/23 Time of Service: 15:46 Assessment and Plan Assessment and plan (1) Acute kidney injury superimposed on chronic kidney disease: Status: Acute Assessment and plan: renal function is still not improving but he appears to be clinically better w/ diuretics. Prior VEXUS studies showed venous congestion of his hepatic and portal and reenal veins. I think that we should continue to diurese him. He is now on scheduled iv lasix. he has had a good UO response (1100 mL on days today). continue albumin and lasix combo (2) Cardiomyopathy: Status: Chronic Assessment and plan: recent echo from [facility] about one month ago demonstrated preserved LV systolic function w/ LVEF 55-60% mild concentric LVH, mild to mod. , mild AI, mild MR but moderate to severe TR and evidence of RV dilatation and RVSD Patient needs to be diuresed despite his elevated BUN and creatinine (or especially because of the elevation and the VEXUS evidence for hepatic and renal congestion. Qualifiers: Cardiomyopathy type: unspecified Qualified Code(s): I42.9 - Cardiomyopathy, unspecified (3) Pruritus: Status: Acute Assessment and plan: resolving since going off the Ceftriaxone. (4) Lymphedema: Status: Acute Assessment and plan: chronic but worse recently d/t inadequate diuresis although today he is showing signs of improved bilateral leg edema (5) Atrial fibrillation: Status: Chronic Assessment and plan: he is in atrial flutter at 2:1 block, despite increase in his metoprolol dose, we have not been able to control his rate or rhythm. He should be referred for ablation. I will trial him on amiodarone as his BP can not tolerate increasing his dosing of his metoprolol. apixaban Qualifiers: Atrial fibrillation type: permanent Qualified Code(s): I48.21 - Permanent atrial fibrillation (6) Essential hypertension: Status: Chronic Assessment and plan: diuretics and BB as noted above. He has had low BP which I am trying to correct w/ midodrine. (7) Type 2 diabetes mellitus: Status: Chronic Assessment and plan: metformin on hold d/t LORETO/CKD; continue novolog sliding scale; glucose 120 to 180. 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 (10) Iron deficiency anemia: Status: Acute Assessment and plan: patient has completed venofer treatment. will monitor his anemia Qualifiers: Iron deficiency anemia type: unspecified iron deficiency Qualified Code(s): D50.9 - Iron deficiency anemia, unspecified Subjective Subjective Interval history since last seen: Mejia is complaining of constipation. I have increased his prn dosing of his Miralasx and put him on scheduled Senna and docusate. I explained to him and his sister and [id number] who are visiting for the weekend that Mejia's kidneys are not doing well and are congested and that we are trying to diurese fluid off. He has also been treated for urosepsis and completed 5 days of antibiotics (Cefepime then Ceftriaxone). I am still concerned about possible ongoing infection in his feet. He had prior treatment for Psedomonas. Exam Narrative Exam Narrative: Mejia is afebrile, alert and oriented x 3, not dyspneic w/ prolonged conversations Neck suppler does not appear to have JVD LUngs: some bibasilar rales Heart: regular but tachycardic in the low 100's approximately ABdomen: obese, soft, nondistended, nontender Legs: edema is improivng, now able to see some definition of his anterior tibial surface, feet and lower legs still edematous 2+ to 3 edema w purplish discoloration of the skin, toes are macerated although the skin over the ankles and tibia and dorsum of the feet are better, less skin Objective Last Vital Signs Temp 36.6 C 06/12/23 14:51 Pulse 107 H 06/12/23 14:51 Resp 16 06/12/23 14:51 BP 98/60 L 06/12/23 14:51 Pulse Ox 169 H 06/12/23 14:51 Laboratory Results - last 24 hr 06/12/23 06/12/23 06:24 06:26 Sodium 136 Potassium 3.5 Chloride 99 Carbon Dioxide 23.8 Anion Gap 13.2 H BUN 89 H* Creatinine 3.3 H Est GFR (CKD-EPI 2020) 19.20 Glucose 137 H Calcium 9.3 C-Reactive Protein 2.26 H Add-On Test Request DONE Time Spent with Patient Time Spent with Patient: 35-49 minutes Time was spent: preparing to see the patient(eg.review tests), ordering medications,tests, procedures, referring, communicating with other health career services director, indepentently interpreting results, counseling the patient and care coordination
[2023-06-12] MEDS: Docusate Sodium 100 MG/10 ML CUP PO (20:59)
[2023-06-12] MEDS: Metoprolol CR 25 MG TABCR PO (21:06)
[2023-06-12] MEDS: Senna TAB 1 TAB PO (22:08)
[2023-06-13 02:15] VITALS: BP 80/60; PULSE 109; RESP 16; TEMP 35.9; O2SAT 99
[2023-06-13] MEDS: ALBUMIN HUMAN 25 GM/100 ML BTL IV (05:32)
[2023-06-13] MEDS: Normal Saline Flush 10 ML SYR IVP ×2 (05:33→19:36)
[2023-06-13 05:36] LABS: Abs Immature Grans 0.13 10^3/uL (0.0-0.06); Absolute Basophil Count 0.09 10^3/uL (0.0-0.2); Absolute Eosinophil Count 0.98 10^3/uL (0.0-0.7); Absolute Lymphocyte Count 0.57 10^3/uL (1.2-3.4); Absolute Monocyte Count 0.75 10^3/uL (0.1-0.8); Absolute Neutrophil Count 7.19 10^3/uL (1.2-6.7); Basophils % 0.9; Eosinophils % 10.1; HCT 27.2 % (40.0-50.0); HGB 8.3 g/dL (13.5-17.5); Immature Grans % 1.3; Lymphocytes % 5.9; MCH 27.4 pg (27.0-33.0); MCHC 30.5 % (32.0-36.0); MCV 90 fL (80-95); MPV 8.9 fL (8.0-11.0); Monocytes % 7.7; Neutrophils % 74.1; Nucleated RBC 0.3 % (0.0-0.3); Platelet Count 248 10^3/uL (130-400); RBC 3.03 10^6/uL (4.36-5.78); RDW 21.3 % (11.8-14.1); RDW-SD 63.1 fL; WBC 9.71 10^3/uL (4.4-10.8)
[2023-06-13 06:03] LABS: Hypochromasia 2+
[2023-06-13 06:04] LABS: Poikilocytes 1+
[2023-06-13 06:06] LABS: ALT 28 U/L (16-63); AST 16 U/L (15-37); Alkaline Phosphatase 77 U/L (46-116); Anisocytosis 1+; Bilirubin, Total 1.1 mg/dL (0.2-1.0); CREATININE 3.3 mg/dL (0.70-1.30); Calcium 9.4 mg/dL (8.5-10.1); Chloride 98 mmol/L (98-107); Glucose 114 mg/dL (74-106); Potassium 3.6 mmol/L (3.5-5.1); Sodium 137 mmol/L (136-145); Total Protein 8.5 g/dL (6.4-8.2)
[2023-06-13 06:13] LABS: BUN 95 mg/dL (7-18)
[2023-06-13] MEDS: Furosemide 100 MG/10 ML VIAL 80 MG IVP (06:16)
[2023-06-13 06:44] LABS: Procalcitonin 0.1 ng/mL
[2023-06-13 07:34] VITALS: BP 90/58; PULSE 105; RESP 16; TEMP 35.2; O2SAT 100
[2023-06-13] MEDS: Tiotropium/Olodaterol 10 PUFF INHALER 2 PUFF IH (07:56)
[2023-06-13] MEDS: Mometasone 220 MCG 14 DOSE INHALER 1 PUFF IH ×2 (07:56→20:10)
[2023-06-13] MEDS: Apixaban 5 MG TAB PO ×2 (09:53→19:34)
[2023-06-13] MEDS: Midodrine 2.5 MG TAB 5 MG PO ×3 (09:53→19:34)
[2023-06-13] MEDS: Gabapentin 100 MG CAP PO ×2 (09:53→19:35)
[2023-06-13] MEDS: Atorvastatin 40 MG TAB 80 MG PO (09:53)
[2023-06-13] MEDS: Folic Acid 1 MG TAB PO (09:54)
[2023-06-13] MEDS: Pantoprazole 40 MG TABCR PO ×2 (09:54→19:35)
[2023-06-13] MEDS: Aspirin E.C. 81 MG TABEC PO (09:54)
[2023-06-13] MEDS: Amiodarone 200 MG TAB 400 MG PO ×2 (09:54→19:37)
[2023-06-13] MEDS: Metoprolol CR 25 MG TABCR PO ×2 (09:54→19:39)
[2023-06-13] MEDS: Nystatin POWDER 15 GM JAR TP ×2 (10:01→22:21)
[2023-06-13 10:29] VITALS: BP 104/72; PULSE 102; RESP 17; TEMP 35.1; O2SAT 100
[2023-06-13] MEDS: Insulin Aspart 300 UNITS/3 ML PEN SC (12:08)
--- NOTE | 2023-06-13 13:49 | PT.INTREAT ---
Date of service: 06/13/23 Time of Service: 11:30 PT Notes Visit Reasons: Community-Acquired Pneumonia Inpatient Physical Therapy Treatment Note [facility] Date: 06/13/2023 PRECAUTIONS:Fall, Standard, Activities as tolerated SUBJECTIVE: Stated he refused to walk today due to the fluid discharge from his feet, but would do his seated exercises. Stated he walks if he needs to use the commode. Wants the drainage issue fixed. Will do exercises in room if given to him. OBJECTIVE: ? PAIN: Not complaining of pain. ? Therapeutic Exercises (42938a3): Direct one-on-one instruction in therapeutic exercises to develop strength, endurance, range of motion and flexibility. ? Exercises: Performed seated exercise including marching, LAQs, hip abduction/ adduction, UE horizontal abduction/ adduction and UE shoulder flexion from lap to approximately 80-90 degrees for 10 reps x 2 sets. Did issue patient written instructions for these exercises to be performed in room 2-3 x per day. ? Worked on sitting balance against mod manual resistance in varying directions with eyes open and closed for 2 reps x 10 seconds each. Ambulation ?- Flatly refused today. ? ASSESSMENT:? Tolerated ther exercises well with good effort given with seated exercises, but not having anything to do with just taking a walk. PLAN: Continue to encourage ambulation and strengthening, as per supervising PT's POC. TREATMENT CODE/TIME: 90791 x 1, 11:30 to 11:45 (15 minutes)
--- NOTE | 2023-06-13 13:52 | NUR.NOTE ---
Nursing Note: Received handoff report from Reagan TURCIOS at 13:50.
[2023-06-13 14:53] VITALS: BP 90/63; PULSE 105
[2023-06-13 15:36] VITALS: BP 112/72; PULSE 106; RESP 20; TEMP 36.6; O2SAT 100
[2023-06-13 16:38] LABS: Mycoplasma Pneumoniae PCR Negative (Negative); Specimen source Sputum
--- NOTE | 2023-06-13 16:40 | PGE_ITS ---
Date of Service Date of service: 06/13/23 Time of Service: 16:40 Assessment and Plan Assessment and plan (1) Acute kidney injury superimposed on chronic kidney disease: Status: Acute Assessment and plan: Renal function still has not recovered and this may be his new baseline level. Previous creatinine levels have been around 2 but lately his creatinine level seems to be settling and at 3.3. He still appears to be volume overloaded although his lungs are clear and he is not requiring any supplemental oxygen. Previous VEXUS studies of his liver and his kidneys have shown hepatic and renal congestion a still showing significant bilateral lower extremity edema. We will continue with high-dose Lasix. He seems to be having adequate urine output from this response. Patient put out 1700 mL yesterday and nearly 1000 mL today so far. Tomorrow I may repeat his VEXUS study and also check his filling pressures on the left side of his heart as well. (2) Cardiomyopathy: Status: Chronic Assessment and plan: recent echo from [facility] about one month ago demonstrated preserved LV systolic function w/ LVEF 55-60% mild concentric LVH, mild to mod. , mild AI, mild MR but moderate to severe TR and evidence of RV dilatation and RVSD Patient needs to be diuresed despite his elevated BUN and creatinine (or especially because of the elevation and the VEXUS evidence for hepatic and renal congestion. Qualifiers: Cardiomyopathy type: unspecified Qualified Code(s): I42.9 - Cardiomyopathy, unspecified (3) Pruritus: Status: Acute Assessment and plan: resolving since going off the Ceftriaxone. (4) Lymphedema: Status: Acute Assessment and plan: chronic but worse recently d/t inadequate diuresis although today he is showing signs of improved bilateral leg edema (5) Atrial fibrillation: Status: Chronic Assessment and plan: he is in atrial flutter at 2:1 block, despite increase in his metoprolol dose, we have not been able to control his rate or rhythm. He should be referred for ablation. I will trial him on amiodarone as his BP can not tolerate increasing his dosing of his metoprolol. Continue apixaban Qualifiers: Atrial fibrillation type: permanent Qualified Code(s): I48.21 - Permanent atrial fibrillation (6) Essential hypertension: Status: Chronic Assessment and plan: diuretics and BB as noted above. He has had low BP which I am trying to correct w/ midodrine. (7) Type 2 diabetes mellitus: Status: Chronic Assessment and plan: metformin on hold d/t LORETO/CKD; continue novolog sliding scale; glucose 120 to 180. 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 (10) Iron deficiency anemia: Status: Acute Assessment and plan: patient has completed venofer treatment. will monitor his anemia Qualifiers: Iron deficiency anemia type: unspecified iron deficiency Qualified Code(s): D50.9 - Iron deficiency anemia, unspecified Subjective Subjective Interval history since last seen: Mejia seems to be feeling better overall today although he is still having a problem with constipation. He did have some bowel movements today earlier with MiraLAX and stool softeners. Still feels the need to have more of a bowel movement and feels bloated and has gas. Denies any dyspnea or chest discomfort. No abdominal pain. Exam Narrative Exam Narrative: Mejia is sitting up in his chair he is in no acute distress he is alert and orient x 3 Lungs are clear to auscultation Heart sounds are regular slightly tachycardic with a soft systolic murmur Abdomen obese slight distention but soft normal bowel sounds Lower extremities with 3+ edema of his lower legs up to his knees feet were wrapped and I did not take down his dressing Luna catheter draining clear yellow urine Skin is pruritic lesions appear to be improving. Objective Last Vital Signs Temp 36.6 C 06/13/23 15:36 Pulse 106 H 06/13/23 15:36 Resp 20 06/13/23 15:36 BP 112/72 06/13/23 15:36 Pulse Ox 100 06/13/23 15:36 Laboratory Results - last 24 hr 06/13/23 05:20 WBC 9.71 RBC 3.03 L Hgb 8.3 L Hct 27.2 L MCV 90 MCH 27.4 MCHC 30.5 L RDW 21.3 H Plt Count 248 MPV 8.9 Immature Gran % 1.3 Neutrophils % 74.1 Lymphocytes % 5.9 Monocytes % 7.7 Eosinophils % 10.1 Basophils % 0.9 Nucleated RBC % 0.3 Absolute Neutrophils 7.19 H Absolute Lymphocytes 0.57 L Absolute Monocytes 0.75 Absolute Eosinophils 0.98 H Absolute Basophils 0.09 RBC Morphology See Below Hypochromasia 2+ Poikilocytosis 1+ Anisocytosis 1+ Sodium 137 Potassium 3.6 Chloride 98 Carbon Dioxide 24.0 Anion Gap 15.0 H BUN 95 H* Creatinine 3.3 H Est GFR (CKD-EPI 2020) 19.20 Glucose 114 H Calcium 9.4 Total Bilirubin 1.1 H AST 16 ALT 28 Alkaline Phosphatase 77 Total Protein 8.5 H Albumin 4.0 Procalcitonin 0.1 Time Spent with Patient Time Spent with Patient: 35-49 minutes Time was spent: preparing to see the patient(eg.review tests), ordering medications,tests, procedures, referring, communicating with other health congregational care pastor, indepentently interpreting results, counseling the patient and care coordination
[2023-06-13] MEDS: Polyethylene Glycol 3350 17 GM PACKET PO (17:08)
[2023-06-13 19:05] VITALS: BP 102/65; PULSE 105; RESP 18; TEMP 36.2; O2SAT 100
[2023-06-14] VITALS (8 sets, daily range): BP systolic 80–98; BP diastolic 59–73; PULSE 98–102; RESP 16–19; TEMP 35.3–36.9; O2SAT 94–100
[2023-06-14] MEDS: Senna TAB 1 TAB PO (02:10)
[2023-06-14] MEDS: Mometasone 220 MCG 14 DOSE INHALER 1 PUFF IH ×2 (07:40→19:29)
[2023-06-14] MEDS: Tiotropium/Olodaterol 10 PUFF INHALER 2 PUFF IH (07:41)
[2023-06-14 07:44] LABS: Magnesium 2.3 mg/dL (1.8-2.4)
[2023-06-14] MEDS: Polyethylene Glycol 3350 17 GM PACKET PO (07:49)
[2023-06-14] MEDS: Docusate Sodium 100 MG/10 ML CUP PO ×2 (07:49→19:31)
[2023-06-14 07:50] LABS: ALT 24 U/L (16-63); AST 15 U/L (15-37); Albumin 3.8 g/dL (3.4-5.0); Alkaline Phosphatase 76 U/L (46-116); Anion Gap 10.2 mmol/L (3-11); Bilirubin, Total 1.1 mg/dL (0.2-1.0); CO2 23.8 mmol/L (21.0-32.0); Calcium 9.5 mg/dL (8.5-10.1); Chloride 98 mmol/L (98-107); Glucose 165 mg/dL (74-106); Potassium 4.3 mmol/L (3.5-5.1); Sodium 132 mmol/L (136-145)
[2023-06-14] MEDS: Atorvastatin 40 MG TAB 80 MG PO (07:50)
[2023-06-14] MEDS: Metoprolol CR 25 MG TABCR PO ×2 (07:51→19:31)
[2023-06-14] MEDS: Gabapentin 100 MG CAP PO ×2 (07:51→19:28)
[2023-06-14] MEDS: Apixaban 5 MG TAB PO (07:51)
[2023-06-14] MEDS: Aspirin E.C. 81 MG TABEC PO (07:51)
[2023-06-14] MEDS: Folic Acid 1 MG TAB PO (07:51)
[2023-06-14] MEDS: Midodrine 2.5 MG TAB 5 MG PO ×3 (07:51→19:29)
[2023-06-14] MEDS: Pantoprazole 40 MG TABCR PO ×2 (07:51→19:28)
[2023-06-14] MEDS: Amiodarone 200 MG TAB 400 MG PO ×2 (07:51→19:29)
[2023-06-14] MEDS: Nystatin POWDER 15 GM JAR TP ×2 (07:52→19:30)
[2023-06-14] MEDS: Insulin Aspart 300 UNITS/3 ML PEN SC ×3 (07:52→17:38)
[2023-06-14 07:57] LABS: BUN 106 mg/dL (7-18)
[2023-06-14 07:58] LABS: CREATININE 3.6 mg/dL (0.70-1.30)
[2023-06-14] MEDS: Normal Saline Flush 10 ML SYR IVP ×3 (08:13→19:30)
[2023-06-14] MEDS: Lactated Ringers 500 ML IV (08:18)
[2023-06-14 12:04] LABS: INR 1.7 (0.9-1.1); Prothrombin Time 16.7 sec (9.1-11.1)
--- NOTE | 2023-06-14 13:34 | PGE_ITS ---
Date of Service Date of service: 06/14/23 Time of Service: 13:34 Assessment and Plan Assessment and plan (1) Acute kidney injury superimposed on chronic kidney disease: Status: Acute Assessment and plan: Renal function still has not recovered and this may be his new baseline level. Previous creatinine levels have been around 2 but lately his creatinine level seems to be settling and at 3.3. Clinically his lungs are clear, and his LV filling pressures are low based on his mitral inflow velocities and mitral annular velocities. His diuretics have been on hold since the evening of 06/12. I will give him some iv fluids back to improve his LV filling pressure and improve his systolic pressures. I have ordered repeat UA to check for casts to see if he had ATN. I have ordered total of 2 liters of LR to be given over next 24 hr. I will repeat his daily BMP and monitor his BP response. (2) Cardiomyopathy: Status: Chronic Assessment and plan: recent echo from [facility] about one month ago demonstrated preserved LV systolic function w/ LVEF 55-60% mild concentric LVH, mild to mod. , mild AI, mild MR but moderate to severe TR and evidence of RV dilatation and RVSD trial of iv fluids Qualifiers: Cardiomyopathy type: unspecified Qualified Code(s): I42.9 - Cardiomyopathy, unspecified (3) Pruritus: Status: Acute Assessment and plan: resolving since going off the Ceftriaxone. (4) Lymphedema: Status: Acute Assessment and plan: chronic and appears to be getting worse. I have asked nursing to apply MAURA wraps but they need to be wrapped above the knee. (5) Atrial fibrillation: Status: Chronic Assessment and plan: he is in atrial flutter at 2:1 block, despite increase in his metoprolol dose, we have not been able to control his rate or rhythm. He should be referred for ablation. I will trial him on amiodarone as his BP can not tolerate increasing his dosing of his metoprolol. Continue apixaban (held today d/t nose bleed) Qualifiers: Atrial fibrillation type: permanent Qualified Code(s): I48.21 - Permanent atrial fibrillation (6) Essential hypertension: Status: Chronic Assessment and plan: he has had mild hypotension, will correct w/ judicious iv fluids and midodrine (7) Type 2 diabetes mellitus: Status: Chronic Assessment and plan: metformin on hold d/t LORETO/CKD; continue novolog sliding scale; glucose 120 to 180. 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 (10) Iron deficiency anemia: Status: Acute Assessment and plan: patient has completed venofer treatment. will monitor his anemia Qualifiers: Iron deficiency anemia type: unspecified iron deficiency Qualified Code(s): D50.9 - Iron deficiency anemia, unspecified Subjective Subjective Interval history since last seen: Mejia feels fatigued, tired. No dyspnea. BP have been on the low side. I have him on midodrine, and he had been diuresing until yesterday morning when I held his diuretics. Unfortunately just holding his diuretics has not been enough to stop his rise in his BUN and creatinine. Exam Narrative Exam Narrative: Mejia is alert and oriented, he seems to have some increased tremoulousness of his hand Lungs: clear Heart: regular (telemetry appears to be atrial flutter vs an ectopic atrial tachycardia, rate low 100's Abdomen: obese, soft, nondistended Extremities: legs are more edematous today,3+, weeping fluid, purplish discoloration Objective Last Vital Signs Temp 36.4 C L 06/14/23 12:34 Pulse 99 H 06/14/23 12:34 Resp 16 06/14/23 12:34 BP 98/72 L 06/14/23 12:34 Pulse Ox 94 06/14/23 12:34 Laboratory Results - last 24 hr 06/14/23 06/14/23 07:15 11:27 PT 16.7 H INR 1.7 H APTT 37.0 H Sodium 132 L Potassium 4.3 Chloride 98 Carbon Dioxide 23.8 Anion Gap 10.2 BUN 106 H* Creatinine 3.6 H* Est GFR (CKD-EPI 2020) 17.30 Glucose 165 H Calcium 9.5 Magnesium 2.3 Total Bilirubin 1.1 H AST 15 ALT 24 Alkaline Phosphatase 76 Total Protein 8.0 Albumin 3.8 Reviewed Pertinent PMH: Yes Objective Narrative Objective Narrative: limited echo was done at the bedside including VEXUS: his IVC is still plethoric (>2.1 cm and <50% inspiratory collapse, hepatic vein continues to show systolic reversal pattern consistent w/ severe hepatic congestion and his portal vein and renal vein shows increased pulsatility w/ lack of systolic venous flow on renal vein. This all would point to congested liver and kidneys however his LV filling pressures are low. His E/e' avg is only about 6 and his TR velocity is low at 2.16 m/s i.e. gradient of 18.7 mm or estimated RVSP of 31 mm. Time Spent with Patient Time Spent with Patient: >50 minutes Time was spent: preparing to see the patient(eg.review tests), ordering medications,tests, procedures, referring, communicating with other health animal care assistant, indepentently interpreting results, counseling the patient and care coordination
--- NOTE | 2023-06-14 17:00 | W.POCUS ---
Pocus Exam Limited Cardiac Exam DATE OF EXAM: 06/14/23 TIME OF EXAM: 13:48 PROVIDER THAT PERFORMED THE STUDY: Dakota Garcia IS THIS A REPEAT EXAM DURING THIS ENCOUNTER: no REASON FOR EXAM: Congestive heart failure VISUALIZED STRUCTURES: four chambers, mitral valve, Interventricular septum and IVC VIEW OBTAINED: Apical 4-Chamber and Subxiphoid PERTINENT FINDINGS/IMPRESSION: Plethoric IVC; no IVC inspiratory collapsability INCIDENTAL FINDINGS: LV mitral inflow velocities and mitral annular velocities were measured along w/ VEXU study of his one of his hepatic veins, portal vein and interlobar renal vein. MV PW interrogation demonstrated avg E wave of 71 cm/s, avg e' septal 9.2 and avg e' lateral 11.8, avg E/e' is 6.8 indicative of low LV filling pressures. VEXUS doppler interrogation of his hepatic vein, portal vein and renal vein continues to demonstrate venous congestion w/ reversal of systolic venous wave in the hepatic vein and increased pulsatility in the portal and renal veins. Exam complete
[2023-06-14] MEDS: Lactated Ringers 1,000 ML 125 ML IV (17:51)
[2023-06-14 23:06] LABS: Bilirubin Negative (Negative); Blood Negative (Negative); Clarity Clear (Clear); Glucose Negative (Negative); Ketones Trace mg/dL (Negative); Leukocyte Esterase Negative (Negative); Nitrite Negative (Negative); Urobilinogen 0.2 mg/dL (Up to 0.2)
[2023-06-15] VITALS (7 sets, daily range): BP systolic 80–105; BP diastolic 52–66; PULSE 98–101; RESP 16–20; TEMP 35.8–36.9; O2SAT 96–100
[2023-06-15] MEDS: Lactated Ringers 1,000 ML 125 ML IV (02:26)
[2023-06-15 07:39] LABS: ALT 23 U/L (16-63); AST 14 U/L (15-37); Albumin 3.6 g/dL (3.4-5.0); Alkaline Phosphatase 73 U/L (46-116); Anion Gap 14.3 mmol/L (3-11); Bilirubin, Total 0.9 mg/dL (0.2-1.0); CO2 23.7 mmol/L (21.0-32.0); CREATININE 3.4 mg/dL (0.70-1.30); Calcium 9.2 mg/dL (8.5-10.1); Chloride 99 mmol/L (98-107); Estimated GFR 18.53 (mL/min/1.73m2); Glucose 185 mg/dL (74-106); Potassium 4.4 mmol/L (3.5-5.1); Sodium 137 mmol/L (136-145); Total Protein 7.8 g/dL (6.4-8.2)
[2023-06-15 07:44] LABS: BUN 108 mg/dL (7-18)
[2023-06-15] MEDS: Docusate Sodium 100 MG/10 ML CUP PO (08:07)
[2023-06-15] MEDS: Polyethylene Glycol 3350 17 GM PACKET PO (08:07)
[2023-06-15] MEDS: Midodrine 2.5 MG TAB 5 MG PO ×3 (08:08→19:46)
[2023-06-15] MEDS: Folic Acid 1 MG TAB PO (08:09)
[2023-06-15] MEDS: Atorvastatin 40 MG TAB 80 MG PO (08:10)
[2023-06-15] MEDS: Pantoprazole 40 MG TABCR PO ×2 (08:10→19:46)
[2023-06-15] MEDS: Amiodarone 200 MG TAB 400 MG PO ×2 (08:11→19:45)
[2023-06-15] MEDS: Aspirin E.C. 81 MG TABEC PO (08:11)
[2023-06-15] MEDS: Gabapentin 100 MG CAP PO ×2 (08:11→19:45)
[2023-06-15] MEDS: Insulin Aspart 300 UNITS/3 ML PEN SC ×3 (08:12→16:45)
[2023-06-15] MEDS: Tiotropium/Olodaterol 10 PUFF INHALER 2 PUFF IH (08:33)
[2023-06-15] MEDS: Mometasone 220 MCG 14 DOSE INHALER 1 PUFF IH ×2 (08:34→20:24)
--- NOTE | 2023-06-15 08:37 | PDOC.CMPRO ---
Date of service: 06/15/23 Care Management Progress Note Progress Note Text Progress Note Text: S/O: Demetrio was sitting up in a chair when CM arrived. Demetrio was having a conversation with the food and beverage coordinator; expressed he is very conscious about what he eats as it pertain to his diagnosis. Demetrio has expressed he is tired today per MD and PT. PRODUCTION GRAPHIC DESIGNER reported letting him sleep for 3 hours with out interruption to allow for rest. CM following. A: Demetrio is a 72 year old male admitted to [facility] 06/05/23 for CAP. P: Deemtrio will discharge home when medically cleared. He will transport via private vehicle by family. He will follow up with his PCP and discharge plan of care instructions as prescribed. SDOH(Care Management) Screening Will the Patient Participate in the Screening?: Declined to provide
--- NOTE | 2023-06-15 10:14 | PT.INNT ---
PT Notes Visit Reasons: Community-Acquired Pneumonia Pt in recliner sleeping when approached for therapy session, pt with epistaxis brought to nurses attention, this therapist updated about hold to see pt per MD. will follow up later to check if pt is good to be seen.
--- NOTE | 2023-06-15 10:47 | PGE_ITS ---
Date of Service Date of service: 06/15/23 Time of Service: 10:47 Assessment and Plan Assessment and plan (1) Severe sepsis: Status: Acute Assessment and plan: - Patient meets criteria for severe sepsis on admission with concern for multifocal pneumonia, tachycardia, leukocytosis, fever, and LORETO on CKD -Patient was started on vancomycin and Zosyn, however this has been discontinued given patient has LORETO -was on Vanco and cefepime and then CTX whic has since been discontinued due to pruritis -Follow-up blood culture remained negative (2) Multifocal pneumonia: Status: Suspected Assessment and plan: -as noted above (3) Acute kidney injury superimposed on chronic kidney disease: Status: Acute Assessment and plan: -secondary to severe sepsis as noted above -baseline Cr 1.9, was up to 3.3 in ED but has not gone back to pre- hospitalization levels and this may be patients new baseline -s/p additional IV fluids given overnight and did have mild improvement in Cr from 3.6 to 3.4 -f/u AM BMP (4) Cardiomyopathy: Status: Chronic Assessment and plan: -Borderline troponins in setting of acute infection. -Likely due to demand ischemia -continue outpatient therapy including high intensity statin. -restart ASA Qualifiers: Cardiomyopathy type: unspecified Qualified Code(s): I42.9 - Cardiomyopathy, unspecified (5) Lymphedema: Status: Acute Assessment and plan: -chronic (6) Atrial fibrillation: Status: Chronic Assessment and plan: -now found to be in 2:1 block despite increasing metoprolol -started on amiodarone given patient cannot tolerate further increase in betablocker due to low BPs -continue eliquis Qualifiers: Atrial fibrillation type: permanent Qualified Code(s): I48.21 - Permanent atrial fibrillation (7) Essential hypertension: Status: Chronic Assessment and plan: -BP has been low normal despite starting midodrine -Reviewing records, he runs low with SBP in 80s noted a an outpatient. -has been started on midodrine, will consider increase based on ambulatory BPs later today -Holding spironloactone with hyperkalemia, but should resume if possible when able. 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 (11) Hyperkalemia: Status: Resolved Subjective Subjective Interval history since last seen: Patient states that he is feeling little better today, and is encouraged that. Kidney function appears to be improving. Otherwise he has no other complaints or concerns at this time. Exam Narrative Exam Narrative: Older gentleman sitting in the chair no acute distress, ANO x 4, heart irregularly irregular rate in the low 100s, lungs clear to auscultation bilaterally, abdomen soft, nontender, nondistended Objective Last Vital Signs Temp 96.8 F L 06/15/23 07:44 Pulse 100 H 06/15/23 07:44 Resp 16 06/15/23 07:44 BP 88/62 L 06/15/23 09:03 Pulse Ox 96 06/15/23 08:34 Laboratory Results - last 24 hr 06/10/23 06/14/23 06/14/23 09:12 11:27 22:51 PT 16.7 H INR 1.7 H APTT 37.0 H Sodium Potassium Chloride Carbon Dioxide Anion Gap BUN Creatinine Est GFR (CKD-EPI 2020) Glucose Calcium Total Bilirubin AST ALT Alkaline Phosphatase Total Protein Albumin Urine Color Yellow Urine Clarity Clear Urine pH 5.0 Ur Specific [place] 1.020 Urine Protein Trace Urine Ketones Trace H Urine Blood Negative Urine Nitrite Negative Urine Bilirubin Negative Urine Urobilinogen 0.2 Ur Leukocyte Esterase Negative Urine Glucose Negative M. pneumoniae Source Sputum M. pneumoniae (PCR) Negative 06/15/23 06:16 PT INR APTT Sodium 137 Potassium 4.4 Chloride 99 Carbon Dioxide 23.7 Anion Gap 14.3 H BUN 108 H* Creatinine 3.4 H Est GFR (CKD-EPI 2020) 18.53 Glucose 185 H Calcium 9.2 Total Bilirubin 0.9 AST 14 L ALT 23 Alkaline Phosphatase 73 Total Protein 7.8 Albumin 3.6 Urine Color Urine Clarity Urine pH Ur Specific [place] Urine Protein Urine Ketones Urine Blood Urine Nitrite Urine Bilirubin Urine Urobilinogen Ur Leukocyte Esterase Urine Glucose M. pneumoniae Source M. pneumoniae (PCR) Time Spent with Patient Time Spent with Patient: >50 minutes Time was spent: preparing to see the patient(eg.review tests), obtaining and/or reviewing separately otained hiistory, ordering medications,tests, procedures, referring, communicating with other health urgent care, indepentently interpreting results, counseling the patient and care coordination
--- NOTE | 2023-06-15 14:32 | PT.INNT ---
PT Notes Visit Reasons: Community-Acquired Pneumonia pt reports that his nose finally stopped bleeding. He is a little irritated that he is woken up every time he finally gets to sleep. He is very sleep deprived. He declines PT this pm, stating he is headed to shower, but will not walk as his legs weep when he is up. Will check back in with him in am.
[2023-06-15] MEDS: Metoprolol CR 25 MG TABCR PO (19:45)
[2023-06-15] MEDS: Nystatin POWDER 15 GM JAR TP (19:47)
[2023-06-16] VITALS (11 sets, daily range): BP systolic 83–139; BP diastolic 52–107; PULSE 88–156; RESP 16–20; TEMP 35.6–36.9; O2SAT 91–100
[2023-06-16 07:00] LABS: Anion Gap 12.2 mmol/L (3-11); CO2 24.8 mmol/L (21.0-32.0); CREATININE 2.8 mg/dL (0.70-1.30); Calcium 9.1 mg/dL (8.5-10.1); Chloride 98 mmol/L (98-107); Estimated GFR 23.39 (mL/min/1.73m2); Glucose 188 mg/dL (74-106); Potassium 4.8 mmol/L (3.5-5.1); Sodium 135 mmol/L (136-145)
[2023-06-16 07:07] LABS: BUN 100 mg/dL (7-18)
[2023-06-16] MEDS: Pantoprazole 40 MG TABCR PO ×2 (07:51→19:59)
[2023-06-16] MEDS: Folic Acid 1 MG TAB PO (07:52)
[2023-06-16] MEDS: Nystatin POWDER 15 GM JAR TP ×2 (07:53→20:00)
[2023-06-16] MEDS: Atorvastatin 40 MG TAB 80 MG PO (07:53)
[2023-06-16] MEDS: Amiodarone 200 MG TAB 400 MG PO ×2 (07:54→19:58)
[2023-06-16] MEDS: Midodrine 2.5 MG TAB 5 MG PO ×3 (07:55→19:58)
[2023-06-16] MEDS: Aspirin E.C. 81 MG TABEC PO (07:55)
[2023-06-16] MEDS: Metoprolol CR 25 MG TABCR PO (07:56)
[2023-06-16] MEDS: Insulin Aspart 300 UNITS/3 ML PEN SC ×3 (07:59→16:46)
[2023-06-16] MEDS: Gabapentin 100 MG CAP PO ×2 (07:59→19:57)
[2023-06-16] MEDS: Normal Saline Flush 10 ML SYR IVP (08:00)
[2023-06-16] MEDS: Mometasone 220 MCG 14 DOSE INHALER 1 PUFF IH ×2 (08:04→20:00)
[2023-06-16] MEDS: Tiotropium/Olodaterol 10 PUFF INHALER 2 PUFF IH (08:04)
[2023-06-16] MEDS: Acetaminophen 500 MG TAB 1000 MG PO (10:11)
--- NOTE | 2023-06-16 10:15 | CMPROGNOTE_ITS ---
Date of service: 06/16/23 Care Management Progress Note Progress Note Text Progress Note Text: S/O: Demetrio was sitting up in a chair when meeting with CM. Demetrio says he has been being told his kidney levels are better, he discussed he wants to know if the levels are one degree better or better enough to not cause him to be readmitted right after discharging, CM put this question up on the white board to address. Demetrio reported that he was tired today but not as tired as yesterday. 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 A: Demetrio is a 72 year old male admitted to [facility] 06/05/23 for CAP. P: Demetrio will discharge home when medically cleared. He will transport via private vehicle by family. He will follow up with his PCP and discharge plan of care instructions as prescribed. SDOH(Care Management) Screening Will the Patient Participate in the Screening?: Declined to provide
--- NOTE | 2023-06-16 10:46 | W.PM.PROGNOT ---
Date of Service Date of service: 06/16/23 Time of Service: 10:46 Assessment and Plan Assessment and plan (1) Severe sepsis: Status: Acute Assessment and plan: - Patient meets criteria for severe sepsis on admission with concern for multifocal pneumonia, tachycardia, leukocytosis, fever, and LORETO on CKD -Patient was started on vancomycin and Zosyn, however this has been discontinued given patient has LORETO -was on Vanco and cefepime and then CTX whic has since been discontinued due to pruritis -Follow-up blood culture remained negative (2) Multifocal pneumonia: Status: Suspected Assessment and plan: -as noted above (3) Acute kidney injury superimposed on chronic kidney disease: Status: Acute Assessment and plan: -secondary to severe sepsis as noted above -baseline Cr 1.9, was up to 3.3 in ED but has not gone back to pre-hospitalization levels and this may be patients new baseline -s/p additional IV fluids given overnight and did have mild improvement in Cr from 3.6 to 3.4 and now 2.8 this morning -f/u AM BMP (4) Cardiomyopathy: Status: Chronic Assessment and plan: -Borderline troponins in setting of acute infection. -Likely due to demand ischemia -continue outpatient therapy including high intensity statin. -restart ASA Qualifiers: Cardiomyopathy type: unspecified Qualified Code(s): I42.9 - Cardiomyopathy, unspecified (5) Lymphedema: Status: Acute Assessment and plan: -chronic (6) Atrial fibrillation: Status: Chronic Assessment and plan: -now found to be in 2:1 block despite increasing metoprolol -started on amiodarone given patient cannot tolerate further increase in betablocker due to low BPs -continue eliquis Qualifiers: Atrial fibrillation type: permanent Qualified Code(s): I48.21 - Permanent atrial fibrillation (7) Essential hypertension: Status: Chronic Assessment and plan: -BP has been low normal despite starting midodrine -Reviewing records, he runs low with SBP in 80s noted a an outpatient. -has been started on midodrine, will consider increase based on ambulatory BPs later today -Holding spironloactone with hyperkalemia, but should resume if possible when able. 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 (11) Hyperkalemia: Status: Resolved Subjective Subjective Interval history since last seen: Patient states that he is feeling little better today, and is encouraged that his kidney function has made significant improvement today. Otherwise he has no other complaints or concerns at this time. Exam Narrative Exam Narrative: Older gentleman sitting in the chair no acute distress, ANO x 4, heart irregularly irregular rate in the low 100s, lungs clear to auscultation bilaterally, abdomen soft, nontender, nondistended Objective Last Vital Signs Temp 98.5 F 06/16/23 10:11 Pulse 101 H 06/16/23 07:23 Resp 16 06/16/23 07:23 BP 96/65 L 06/16/23 07:23 Pulse Ox 100 06/16/23 08:05 Laboratory Results - last 24 hr 06/16/23 06:01 Sodium 135 L Potassium 4.8 Chloride 98 Carbon Dioxide 24.8 Anion Gap 12.2 H BUN 100 H* Creatinine 2.8 H Est GFR (CKD-EPI 2020) 23.39 Glucose 188 H Calcium 9.1 Time Spent with Patient Time Spent with Patient: >50 minutes Time was spent: preparing to see the patient(eg.review tests), obtaining and/or reviewing separately otained hiistory, ordering medications,tests, procedures, referring, communicating with other health customer care consultant, indepentently interpreting results, counseling the patient and care coordination
[2023-06-16] MEDS: Docusate Sodium 100 MG/10 ML CUP PO (14:02)
--- NOTE | 2023-06-16 14:39 | PT.INTREAT ---
PT Notes Visit Reasons: Community-Acquired Pneumonia Inpatient Physical Therapy Treatment Note [facility] Date: 06/16/2023 PRECAUTIONS:Fall, Standard, Activities as tolerated SUBJECTIVE: Still not up for walking. He just feels so fatigued and tires easily. But he feels he can trial some standing activities. OBJECTIVE: Functional ability: STS with supervision and RW Chair to commode, commode to chair RW supervision ? PAIN: Not complaining of pain. ? Therapeutic Exercises (15287h2): Direct one-on-one instruction in therapeutic exercises to develop strength, endurance, range of motion and flexibility. ? Exercises: Reviewed handwritten HEP to include: seated marching, LAQs, UE horizontal abduction/ adduction and UE shoulder flexion from lap to approximately 80-90 degrees for 10 reps x 2 sets. Followed issued written instructions for these exercises to be performed in room 2-3 x per day. Seated bicep curls x 10 3# Standing scap retraction 10 sec x 10 Standing march x 30 sec STS from recliner x 2 x 2 ? Ambulation - refused ? HEP addition: Standing march and scap retractions/stand tall ? ASSESSMENT:? Progressed with ability to stand for longer time periods 30 sec at a time. Not confident to perform transfers independently, such as todays commode transfer. PLAN: Continue to encourage ambulation and strengthening, as per supervising PT's POC. Direct treatment time 20min Total treatment time 20min Units Time 9716 Manual therapy (67328) min Therapeutic Procedures (68731) 1 20min Neurological Reeducation (55742) [] []min Therapeutic Activity (43225) [] []min DNI []min [] [] []min
[2023-06-16 19:14] LABS: Erythropoietin 37.2 mIU/mL (2.6 - 18.5)
[2023-06-16] MEDS: Polyethylene Glycol 3350 17 GM PACKET PO (20:04)
[2023-06-16] MEDS: Senna TAB 1 TAB PO (20:05)
[2023-06-17] MEDS: diphenhydrAMINE 25 MG CAP PO (02:02)
[2023-06-17 03:27] VITALS: BP 88/50; PULSE 94; RESP 16; TEMP 36; O2SAT 99
[2023-06-17 04:01] VITALS: O2SAT 100
[2023-06-17 07:07] LABS: HCT 26.4 % (40.0-50.0); HGB 8.2 g/dL (13.5-17.5); MCH 28.2 pg (27.0-33.0); MCHC 31.1 % (32.0-36.0); MCV 91 fL (80-95); MPV 9.2 fL (8.0-11.0); Platelet Count 260 10^3/uL (130-400); RBC 2.91 10^6/uL (4.36-5.78); RDW-SD 74.1 fL; WBC 9.26 10^3/uL (4.4-10.8)
[2023-06-17 07:11] VITALS: BP 87/57; PULSE 96; RESP 18; TEMP 36.6; O2SAT 98
[2023-06-17 07:19] LABS: RDW 23.4 % (11.8-14.1)
[2023-06-17 07:26] LABS: Anion Gap 10.4 mmol/L (3-11); CO2 25.6 mmol/L (21.0-32.0); CREATININE 3.4 mg/dL (0.70-1.30); Calcium 9.3 mg/dL (8.5-10.1); Chloride 99 mmol/L (98-107); Estimated GFR 18.53 (mL/min/1.73m2); Glucose 164 mg/dL (74-106); Potassium 4.8 mmol/L (3.5-5.1); Sodium 135 mmol/L (136-145)
[2023-06-17] MEDS: Pantoprazole 40 MG TABCR PO (07:49)
[2023-06-17] MEDS: Tiotropium/Olodaterol 10 PUFF INHALER 2 PUFF IH (08:29)
[2023-06-17 08:30] VITALS: O2SAT 99
[2023-06-17] MEDS: Mometasone 220 MCG 14 DOSE INHALER 1 PUFF IH (08:30)
[2023-06-17 08:38] VITALS: BP 95/65
[2023-06-17] MEDS: Insulin Aspart 300 UNITS/3 ML PEN SC (08:39)
[2023-06-17] MEDS: Amiodarone 200 MG TAB 400 MG PO (08:40)
[2023-06-17] MEDS: Atorvastatin 40 MG TAB 80 MG PO (08:41)
[2023-06-17] MEDS: Midodrine 2.5 MG TAB 5 MG PO (08:41)
[2023-06-17] MEDS: Folic Acid 1 MG TAB PO (08:43)
[2023-06-17] MEDS: Aspirin E.C. 81 MG TABEC PO (08:43)
[2023-06-17] MEDS: Metoprolol CR 25 MG TABCR PO (08:43)
[2023-06-17] MEDS: Gabapentin 100 MG CAP PO (08:43)
[2023-06-17] MEDS: Nystatin POWDER 15 GM JAR TP (08:45)
[2023-06-17 08:53] LABS: BUN 106 mg/dL (7-18)
--- NOTE | 2023-06-17 09:16 | CMPROGNOTE_ITS ---
Date of service: 06/17/23 Care Management Progress Note Progress Note Text Progress Note Text: S/O: Demetrio was sitting in a chair when talking with CM. CM relayed from MD his kidney levels are at the new baseline and Demetrio will follow up in a week outpatient. Demetrio asked for his foot to be wrapped in plastic when he leaves to prevent infections. PT provided a boot that fits that is relayed that he likes. Demetrio discussed his wanting to stay out of the hospital so following healthy practices at home. CM following. A: Demetrio is a 72 year old male admitted to [facility] 06/05/23 for CAP. P: Demetrio will discharge home when medically cleared. He will transport via private vehicle by family. He will follow up with his PCP and discharge plan of care instructions as prescribed. SDOH(Care Management) Screening Will the Patient Participate in the Screening?: Declined to provide
--- NOTE | 2023-06-17 09:32 | PDOC.HHF2F ---
Home Health Referral Home Health Orders Clinical synopsis of why skilled professionals are needed: IDDM, chronic bilateral LE edema and wounds Registered Nurse: Check all that apply Instruct on new or changed medication(s)/assess compliance: Ordered Assess wound for signs and symptoms of infection, instruct on wound care and/or provide skilled wound care consisting of: bilateral LE Physical Therapist: Check all that apply Increase strength & endurance for safe mobility at home: Ordered To design/establish home maintenance program: Ordered Fall reduction therapy program for patient with history of frequent falls: Ordered Home safety evaluation and teaching/gait training including stair management (if applicable): Ordered Encounter Date and Reason: I certify that a FTF encounter for this patient was performed on June 17, 2023 and that such encounter was related to the primary reason the patient requires home health services. The encounter was conducted in the following manner: By me as the certifying physician, TEMPERING MACHINE OPERATOR, PA or By an inpatient physician, TEMPERING MACHINE OPERATOR or PA during an inpatient stay who communicated findings to me, Certification And Authentication I certify that I composed the above information based on my clinical judgment relating to this patient's medical condition and, if applicable, clinical findings communicated to me by the NPP or inpatient physician who performed the FTF encounter. Name of Provider that will be monitoring home health services: Carlos Kramer
--- NOTE | 2023-06-17 09:33 | DSE_ITS ---
Date of service: 06/17/23 Time of Service: 11:19 DS: Diagnosis Discharge Diagnosis (1) Severe sepsis: Status: Acute Asessment and Plan: - Patient meets criteria for severe sepsis on admission with concern for multifocal pneumonia, tachycardia, leukocytosis, fever, and LORETO on CKD -Patient was started on vancomycin and Zosyn, however this has been discontinued given patient has LORETO -was on Vanco and cefepime and then CTX whic has since been discontinued due to pruritis -Follow-up blood culture remained negative (2) Multifocal pneumonia: Status: Suspected Asessment and Plan: -as noted above (3) Acute kidney injury superimposed on chronic kidney disease: Status: Acute Asessment and Plan: -secondary to severe sepsis as noted above -baseline Cr 1.9, was up to 3.3 in ED but has not gone back to pre- hospitalization levels and this may be patients new baseline -s/p additional IV fluids given overnight and did have mild improvement in Cr from 3.6 to 3.4 and now 2.8 this morning -rec outpatient BMP in about 1-2 weeks (4) Cardiomyopathy: Status: Chronic Asessment and Plan: -Borderline troponins in setting of acute infection. -Likely due to demand ischemia -continue outpatient therapy including high intensity statin. -restarted ASA (5) Lymphedema: Status: Acute (6) Atrial fibrillation: Status: Chronic Asessment and Plan: -now found to be in 2:1 block despite increasing metoprolol -started on amiodarone given patient cannot tolerate further increase in betablocker due to low BPs -continue eliquis (7) Essential hypertension: Status: Chronic Asessment and Plan: -BP has been low normal despite starting midodrine -Reviewing records, he runs low with SBP in 80s noted a an outpatient. -has been started on midodrine, will consider increase based on ambulatory BPs later today -Holding spironloactone with hyperkalemia, but should resume if possible when able as outpatient (8) Type 2 diabetes mellitus: Status: Chronic Asessment and Plan: -hold home metformin due to LORETO -monitor blood glucose levelvs (9) COPD (chronic obstructive pulmonary disease) with emphysema: Status: Chronic Asessment and Plan: -without acute exacerbation -continue home inhaler regimen (10) NAFLD (nonalcoholic fatty liver disease): Status: Acute (11) Hyperkalemia: Status: Resolved Asessment and Plan: -resolved Discharge Plan Disposition Patient Disposition: Home W/Home Health Services Condition: Good Discharge Details Reason For Visit: CAP Admit Date/Time: 06/05/23 20:47 Admit Provider: Raymond Hernandez Attending Provider: Raymond Hernandez [facility] Hospital Course: Patient initially presented with community-acquired pneumonia and severe sepsis for which she was treated with and completed a course of combination of vancomycin and cefepime and ceftriaxone. However, patient also developed LORETO on CKD with significant increase in his creatinine from his baseline of 1.9 up to as high as 3.6. Creatinine did briefly declined to 2.8 but went back up to 3.4. However, clinically the patient has made significant improvement, and it is likely that patient just may need more time to have full recovery of his creatinine levels. Given this, it was determined that the patient was stable for discharge and will have close outpatient follow-up and repeat outpatient labs. Home Meds and New Rx's Prescriptions: New amiodarone [Pacerone] 200 mg Tablet 400 mg PO BID Qty: 90 0RF aspirin 81 mg Tablet,Delayed Release (Dr/Ec) 81 mg PO DAILY Qty: 60 0RF midodrine 2.5 mg Tablet 5 mg PO TID Qty: 120 0RF metoprolol succinate 25 mg Tablet Extended Release 24 Hr 25 mg PO Q12H Qty: 90 0RF Continued albuterol sulfate 90 mcg/actuation HFA aerosol inhaler 2 puff inhalation QID PRN (Reason: SOB) Qty: 18 12RF Eliquis 5 mg tablet 5 mg PO BID Qty: 180 3RF Hold Instructions: Adverse Reaction atorvastatin 80 mg tablet 80 mg PO DAILY Qty: 90 3RF tramadol 50 mg tablet 50 mg PO Q8H PRN (Reason: pain) Qty: 21 0RF fluticasone propionate [Flovent HFA] 110 mcg/actuation HFA aerosol inhaler 2 puff inhalation BID Qty: 12 10RF Stiolto Respimat 2.5-2.5 mcg/actuation mist 2 puff inhalation DAILY Qty: 4 12RF glipizide 5 mg tablet extended release 24hr 5 mg PO DAILY Qty: 90 3RF gabapentin 100 mg capsule 100 mg PO BID nystatin 100,000 unit/gram powder 1 applic topical BID Qty: 30 0RF Minerin Creme Cream 1 applic topical .COMPLEX Rx Instructions: 1 applic topically Q4 hours prn; torsemide 20 mg tablet 20 mg PO DAILY Rx Instructions: Can have an additional 20mg daily for fluid. acetaminophen 500 mg Capsule 1,000 mg PO Q6H PRN Discontinued spironolactone 25 mg tablet 25 mg PO DAILY Qty: 90 3RF levofloxacin 250 mg tablet 750 mg PO .COMPLEX 30 Days Qty: 45 0RF Rx Instructions: Give 750mg po Q 48 hours renally dosed metformin 500 mg tablet 500 mg PO BID Qty: 180 3RF metoprolol succinate 50 mg tablet extended release 24 hr 50 mg PO BID No Action (DME) Blood Glucose Test Strip See Rx Instructions .ROUTE .MEDSUPPLY Qty: 100 3RF Rx Instructions: As directed to check blood glucose daily. No insulin. Dispense covered brand. (DME) lancets Misc See Rx Instructions .ROUTE .MEDSUPPLY Qty: 100 3RF Rx Instructions: As directed to check blood glucose daily. No insulin. Dispense covered brand. (DME) Circaids See Rx Instructions .Route .MEDSUPPLY Qty: 1 0RF Hold Instructions: waiting measurment Rx Instructions: As directed (DME) comp.stocking,knee,long,medium Misc See Rx Instructions .ROUTE .MEDSUPPLY Qty: 2 0RF Rx Instructions: As directed. Please measure patient for appropriate size. (DME) blood-glucose meter [OneTouch UltraMini] Kit See Rx Instructions .ROUTE .MEDSUPPLY Qty: 1 0RF Rx Instructions: As directed Discharge Instructions Instructions: Community Acquired Pneumonia (DC) Stand Alone Forms: Nursing Discharge Form Referrals: Carlos Kramer DO [Primary Care Provider] - (Message with office to call you to make a follow up appointment. If you do not hear from them today please call them for a follow up in 1-2 weeks) Activity:: Activity as Tolerated Equipment/Supplies:: Post-op shoes Diet:: As Tolerated Discharge Orders Discharge Orders: Discharge Order (Routine); Ordered 06/17/23 Ordered By: Roger Wagoner DS: Summary Time Spent with Patient providing and/or coordinating discharge services: Greater than 30 minutes Status at Discharge Functional status at discharge: independent ambulation Overall status at discharge: patient is back to baseline Mental Status: mental status grossly normal Speech and Movement: slowed movement Mood: congruent mood Affect: normal affect Quality:SDOH Health Related Social Needs: No Data to Display Exam Narrative Exam Narrative: Older gentleman sitting in the chair no acute distress, ANO x 4, heart irregularly irregular rate in the low 100s, lungs clear to auscultation bilaterally, abdomen soft, nontender, nondistended Psych Mental Status: mental status grossly normal Speech and Movement: slowed movement Mood: congruent mood Affect: normal affect DS: Data Vitals/I&O Vitals and I&O: Vital Signs Temperature 97.8 F 06/17/23 07:11 Temperature Source Tympanic 06/17/23 07:11 Pulse 96 H 06/17/23 07:11 Pulse Rhythm Regular 06/17/23 09:09 Respiratory Rate 18 06/17/23 07:11 Respiratory Effort Normal 06/17/23 09:09 Respiratory Depth Normal 06/17/23 09:09 Respiratory Pattern Normal 06/17/23 09:09 Blood Pressure 95/65 L 06/17/23 08:38 Blood Pressure Position Sitting 06/05/23 18:42 Pulse Oximetry 99 06/17/23 08:30 Oxygen Delivery Method Room Air 06/17/23 08:30 Oxygen Flow Rate 0 06/17/23 08:30 Pain Level 5 06/17/23 07:11 Comment CC notified 06/15/23 09:03 Intake & Output 06/16/23 06/17/23 06/17/23 17:59 05:59 17:59 Intake Total 200 / 200 Output Total 400 / 400 450 / 850 450 / 450 Balance -200 / -200 -450 / -650 -450 / -450 Weight 222 lb 10.67 oz Intake: IV 20 / 20 Oral 180 / 180 Output: Urine 400 / 400 450 / 850 450 / 450 Other: Urine Color Light Lois Pale Yellow Yellow Urine Appearance Clear Clear Clear Comment strong odor Stool Occult Blood Positive Stool Size Large Stool Characteristics Formed Hard Data Completed and Pending Labs on day of discharge: Labs from last 24 hours 06/17/23 06/14/23 06:50 07:15 WBC 9.26 RBC 2.91 L Hgb 8.2 L Hct 26.4 L MCV 91 MCH 28.2 MCHC 31.1 L RDW 23.4 H Plt Count 260 MPV 9.2 Sodium 135 L Potassium 4.8 Chloride 99 Carbon Dioxide 25.6 Anion Gap 10.4 BUN 106 H* Creatinine 3.4 H Est GFR (CKD-EPI 2020) 18.53 Glucose 164 H Calcium 9.3 Erythropoietin 37.2 H PFSH All Active Problems (Updated 06/17/23 @ 09:32 by Roger Wagoner MD) Acute kidney injury superimposed on chronic kidney disease (Acute) Pruritus (Acute) Severe sepsis (Acute) Pneumonia (Acute) Acute kidney injury (Acute) Lymphedema (Acute) PVD (peripheral vascular disease) (Chronic) Edema (Acute) Venous (peripheral) insufficiency (Acute) Erythematous rash (Acute) Chronic venous stasis dermatitis (Acute) Skin tear of left lower leg without complication (Acute) left forefoot, just distal to ankle fold Edema of lower extremity (Acute) presumed venous insuff; PAD? Lymphedema? Weeks TBD Tinea (Acute) NAFLD (nonalcoholic fatty liver disease) (Acute) [facility] Gastro Note 12/25/22 Iron deficiency anemia (Acute) Pleural nodule (Acute) Renal calculus, left (Acute) Hepatic steatosis (Acute) Ascites (Acute) Pleural effusion (Acute 06/26/22) Cardiomyopathy (Chronic) CAD (coronary artery disease) (Chronic) Corns and callosities (Acute) Nail dystrophy (Acute) Hypercapnic respiratory failure (Acute) Heart failure, systolic, chronic (Acute) Recurrent infections (Chronic) H/o recurrent leg cellulitis and sepsis CHF (congestive heart failure) (Acute) 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 2 diabetes mellitus (Chronic ~10/2019) Atrial fibrillation (Chronic) Psoriasis (Chronic) Tinea pedis (Acute 10/29/20) [facility] Inf Disease Vitamin B12 deficiency (Chronic) Stasis dermatitis of both legs (Acute) CKD (chronic kidney disease) (Acute) CKD3, Cr 1.4-1.9 [id number] Essential hypertension (Chronic) Type 2 diabetes mellitus (Chronic) Venous insufficiency (Chronic) COPD (chronic obstructive pulmonary disease) with emphysema (Chronic) Obesity (Chronic) Hyperlipidemia, unspecified (Chronic) Tobacco use disorder (Chronic) Medical History Palliative care patient NSTEMI (non-ST elevated myocardial infarction) Sepsis syndrome Hypothyroidism Surgical History History of abdominal paracentesis (~08/27/22) 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 at age 79. Essential hypertension Myocardial infarction Maternal Aunt Neoplasm Adnexa NOS Maternal Grandmother Neoplasm Adnexa NOS Mother , CVA & PNA at age 81. Essential hypertension Stroke Paternal Grandfather Myocardial infarction Social History (Updated 06/05/23 @ 23:05 by Raymond Hernandez) Smoking/Tobacco Use Status: Former Tobacco Use Smoking risk assessment performed?: Yes Alcohol Intake: current Alcohol Intake frequency: holidays/special occasions only Details: no recent alcohol Drug use: Never Substance use type: does not use Adopted: No Caregiver/Support person: No Household members: spouse, family and children Housing: house Number of Children: 2 number of grandchildren: 4 Communication Needs: None Education Level: college Details: Some College Do you need help understanding health information?: Rarely Pets and animals: No Sexually active: No Do you think of yourself as: straight/heterosexual Current gender identity: male What is your relationship status?: How often do you talk on the phone with friends or family?: once per week How often do you get together with friends or relatives?: once per week Do you belong to any clubs or organized social groups?: no Panel score (0-1 are the most socially isolated patients): 1 What type of physical activity do you participate in: resistance training Duration: < 15 minutes/day Frequency: 1-2 times per week Chantell/Sabianism: Rastafarian Special chantell needs: No Seatbelt use: always Drive intox or ride w/intox 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 Time Spent with Patient Time Spent with Patient: <45 minutes Time was spent: preparing to see the patient(eg.review tests), obtaining and/or reviewing separately otained hiistory, ordering medications,tests, procedures, referring, communicating with other health patient care director, indepentently interpreting results, counseling the patient and care coordination
--- NOTE | 2023-06-17 09:59 | PT.INTREAT ---
PT Notes Visit Reasons: Community-Acquired Pneumonia Physical Therapy Inpatient Treatment Note Date: 06/17/2023 Precautions: Fall. Standard. Activity as tolerated. Subjective: Looking forward to going home today. Happy with the pair of post-op shoes fitted and given to him as they feel comfortable and safe. Objective: General Observation: High BMI. Telemetry monitoring in place. Unna boot in B legs and feet. Toes discolored and swollen. Seated on bedside chair. Mental Status: Alert and oriented as to person, place, time, and purpose. Able to pay attention, focus, and respond appropriately. Pain: 2-3/10 in B legs Vital Signs: WNL as closely monitored by nursing staff Bed Mobility/Transfers: Minimal cueing provided for use of B hands as needed for support, movement sequence, AD management, and posture to reduce fall risk and minimize pain report Sit to stand stand by assist Stand to sit stand by assist Gait: Instructed patient with level surface ambulation of 20 feet requiring stand by assist assist with post-op shoes on. Maribell decreased. Step height decreased. Step length decreased. Short of breath. Pain in B legs and feet. Patient verbalized feeling comfortable and safe with post-op shoes. Balance: Static Sitting: Normal Dynamic Sitting: Normal Static Standing: Fair Dynamic Standing: Fair ASSESSMENT: Fitted and provided with a pairi of postop shoes to increase comfort and safety of walking. Patient with stage III secondary phlebolymphedema with open areas now being managed by unna boot. Ambulation painful due to pre-existing swelling in B legs. Closely monitor vital signs during mobility ADL performance. Requires use of FWW for all mobility ADL performance. Patient presents with clinical signs and symptoms consistent with current/admitting diagnoses that have resulted to mobility limitations, gait instability, generalized weakness, and overall ADL decline as demonstrated by the following impairment level findings: 1. Decreased strength to B UE/LE major muscle groups 2. Impaired sitting/standing balance 3. Impaired activity tolerance 4. Swelling, heaviness, and pain in B LE 5. Open areas to B legs and feet Impairments are contributing to the following functional limitations: 1. Decline in bed mobility skills 2. Decline in transfer skills 3. Difficulty with ambulation without assistive device and physical assistance 4. Increased completion time for mobility ADL performance 5. Increased risk for falls 6. Difficulty with managing steps alone safely DISCHARGE RECOMMENDATIONS: [] Home with no services [] [] Home with services [] [X] Home with outpatient PT. Patient will benefit from complete decongestive therapy at an outpatient basis to manage secondary stage III phlebolymphedema. [] SNF for continued rehabilitation [] [] Residential Care [] [] SNF versus LTC based on ability to participate and progress [] [X] May benefit from home safety evaluation to reduce fall risk at home. TREATMENT CODE/TIME: 92456 x 20 minutes (9:59-10:19)
--- NOTE | 2023-06-17 10:33 | PDOC.CMDIS ---
Date of service: 06/17/23 LACE Index Scoring Tool Questions: Length of Stay (in days): 7 - 13 Was the patient admitted via the E.D.?: Yes E.D. Visits: 0 Answers: Total Score: 8 Risk of Readmission: Low Risk Care Management Discharge Plan Reason for Hospitalization: CAP Discharge Plan: Demetrio will discharge home and transport via private vehicle by isauro Rushing. He will follow up with his PCP and plan of care instructions. He will follow up in a week outpatient to check kidney levels as recommended from MD. 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 Patient/Family Education Needs: Review discharge instructions and plan of care as prescribed. Discussion of [facility] Health Related Social Needs: No Data to Display
== END 2023-06-17 12:50 | disposition home health service (06) | DRG 871 ==
LOC: ER 21:34 → MS 21:40
PROVIDERS: Family Medicine; Internal Medicine; Admitting Provider Family Medicine; Emergency Provider Nurse Practitioner Family; PCP Family Medicine; Visit Provider Family Medicine
DX: A41.9 Sepsis, unspecified organism (principal); J18.9 Pneumonia, unspecified organism; I42.9 Cardiomyopathy, unspecified; N17.9 Acute kidney failure, unspecified; I48.21 Permanent atrial fibrillation; I13.0 Hypertensive heart and chronic kidney disease with heart failure and stage 1 through stage 4 chronic kidney disease, or unspecified chronic kidney disease; I50.22 Chronic systolic (congestive) heart failure; N39.0 Urinary tract infection, site not specified; Z16.24 Resistance to multiple antibiotics; Z16.11 Resistance to penicillins; Z16.23 Resistance to quinolones and fluoroquinolones; Z16.19 Resistance to other specified beta lactam antibiotics; I24.89 Other forms of acute ischemic heart disease; R65.20 Severe sepsis without septic shock; E11.65 Type 2 diabetes mellitus with hyperglycemia; E11.22 Type 2 diabetes mellitus with diabetic chronic kidney disease; E87.5 Hyperkalemia; I89.0 Lymphedema, not elsewhere classified; Z79.01 Long term (current) use of anticoagulants; Z79.84 Long term (current) use of oral hypoglycemic drugs; I25.2 Old myocardial infarction; Z95.1 Presence of aortocoronary bypass graft; Y95 Nosocomial condition; K76.0 Fatty (change of) liver, not elsewhere classified; I73.9 Peripheral vascular disease, unspecified; I87.2 Venous insufficiency (chronic) (peripheral); D50.9 Iron deficiency anemia, unspecified; N20.0 Calculus of kidney; R91.1 Solitary pulmonary nodule; I25.10 Atherosclerotic heart disease of native coronary artery without angina pectoris; L40.9 Psoriasis, unspecified; E53.8 Deficiency of other specified B group vitamins; N18.30 Chronic kidney disease, stage 3 unspecified; J43.9 Emphysema, unspecified; B96.29 Other Escherichia coli [E. coli] as the cause of diseases classified elsewhere; L27.0 Generalized skin eruption due to drugs and medicaments taken internally; I08.3 Combined rheumatic disorders of mitral, aortic and tricuspid valves; K59.00 Constipation, unspecified; T36.1X5A Adverse effect of cephalosporins and other beta-lactam antibiotics, initial encounter
CPT/HCPCS: 00123; 36415; 80048; 80053; 82668; 84145; 85027; 87040; 87077; 87449; 87637; 87641; 93005; 93308; 94640; 96361; 97110; 97163; 97530; 99285; 71045; 71046; 73620; 81003; 81015; 82270; 82607; 82728; 82746; 83540; 83550; 83605; 83735; 83880; 84484; 85025; 85610; 85730; 86140; 87070; 87086; 87186; 87205; 87581; 87899; 93010; 94664; 94760; 94762; 99222; 99232; 99233; 99238; J0456; J0692; J0696; J1756; J1815; J1940; J2543; J3372; J3490; P9047

== ENCOUNTER 2023-06-22 13:18 | Emergency (ER) | payer MEDICARE, SELFPAY ==
[2023-06-22] VITALS (86 sets, daily range): BP systolic 47–135; BP diastolic 23–104; PULSE 57–120; RESP 10–23; TEMP 34.1–36.2; O2SAT 91–100
--- NOTE | 2023-06-22 13:15 | RT.EKG_ITS ---
APPROVED REPORT Exam: Resting ECG Reason for Exam: weakness Patient Location: E HR:120 bpm ECG Measurements Heart Rate 120 AXIS GA [id number] P [id number] QRSd 228 QRS 23 QT 352 T 186 QTc 498 Conclusion Atrial fibrillation...V-rate 64-197, irreg A-activity Paired ventricular premature complexes...sequence of 2 V complexes IVCD, consider RBBB...QRSd>120mS, terminal axis(90,270) Repol abnrm suggests ischemia, diffuse leads...ST-T neg, ant/lat/inf poor baseline, artifact; wide complex regular rhythm, consistent with known severe hyperkalemia
--- NOTE | 2023-06-22 13:30 | DI.RAD_ITS ---
Exam(s) XR PORTABLE CHEST AP EXAM: XR PORTABLE CHEST AP CLINICAL HISTORY: weakness. TECHNIQUE: 2D digital imaging was performed. COMPARISON: CR,XR XR CHEST 2V PA LATERAL from 06/05/2023 CR XR PORTABLE CHEST AP from 06/12/2023 FINDINGS: Single AP portable view. Again noted are sternotomy wires and evidence of previous CABG. Heart size is upper normal. The mediastinum is not widened. No evidence of pulmonary edema. Right lung is clear. There are mild increased markings in the left lung base, similar to previous. However, the amount of infiltrate in the left lung base has signific antly decreased when compared to 06/05/2023. No obvious pleural effusions. IMPRESSION: Significant improvement in left lung base infiltrate when compared to 06/05/2023. DATA REPOSITORY: RADIATION DOSE DELIVERED:
--- NOTE | 2023-06-22 13:41 | ED.GENADUL_ITS ---
Discharge Plan Disposition Patient Disposition: Transfer-Acute Inpatient Care Specific Acute Inpt Facility: [facility] Condition: Stable Discharge Details Chief Complaint: GenMedical Clinical Impression: LORETO (acute kidney injury), Acute hypotension, Metabolic acidosis, Acute hyperkalemia Primary Care Provider: Carlos Kramer ED Provider: Faustino Cochran Home Meds and New Rx's Prescriptions: No Action albuterol sulfate 90 mcg/actuation HFA aerosol inhaler 2 puff inhalation QID PRN (Reason: SOB) Qty: 18 12RF Eliquis 5 mg tablet 5 mg PO BID Qty: 180 3RF Hold Instructions: Adverse Reaction (DME) Blood Glucose Test Strip See Rx Instructions .ROUTE .MEDSUPPLY Qty: 100 3RF Rx Instructions: As directed to check blood glucose daily. No insulin. Dispense covered brand. (DME) lancets Misc See Rx Instructions .ROUTE .MEDSUPPLY Qty: 100 3RF Rx Instructions: As directed to check blood glucose daily. No insulin. Dispense covered brand. atorvastatin 80 mg tablet 80 mg PO DAILY Qty: 90 3RF (DME) Circaids See Rx Instructions .Route .MEDSUPPLY Qty: 1 0RF Hold Instructions: waiting measurment Rx Instructions: As directed tramadol 50 mg tablet 50 mg PO Q8H PRN (Reason: pain) Qty: 21 0RF (DME) comp.stocking,knee,long,medium Misc See Rx Instructions .ROUTE .MEDSUPPLY Qty: 2 0RF Hold Instructions: on hold Rx Instructions: As directed. Please measure patient for appropriate size. fluticasone propionate [Flovent HFA] 110 mcg/actuation HFA aerosol inhaler 2 puff inhalation BID Qty: 12 10RF Stiolto Respimat 2.5-2.5 mcg/actuation mist 2 puff inhalation DAILY Qty: 4 12RF glipizide 5 mg tablet extended release 24hr 5 mg PO DAILY Qty: 90 3RF gabapentin 100 mg capsule 100 mg PO BID nystatin 100,000 unit/gram powder 1 applic topical BID Qty: 30 0RF Minerin Creme Cream 1 applic topical .COMPLEX Rx Instructions: 1 applic topically Q4 hours prn; torsemide 20 mg tablet 20 mg PO DAILY Rx Instructions: Can have an additional 20mg daily for fluid. (DME) blood-glucose meter [One-Song UltraMini] Kit See Rx Instructions .ROUTE .MEDSUPPLY Qty: 1 0RF Rx Instructions: As directed acetaminophen 500 mg Capsule 1,000 mg PO Q6H PRN amiodarone [Pacerone] 200 mg Tablet 400 mg PO BID Qty: 90 0RF aspirin 81 mg Tablet,Delayed Release (Dr/Ec) 81 mg PO DAILY Qty: 60 0RF midodrine 2.5 mg Tablet 5 mg PO TID Qty: 120 0RF metoprolol succinate 25 mg Tablet Extended Release 24 Hr 25 mg PO Q12H Qty: 90 0RF HPI General Date/Time Provider Initiated Documentation: 06/22/23 13:23 . HPI Narrative: 72-year-old male history of hepatic steatosis diabetes CKD COPD CHF, recent hospitalization for pneumonia with LORETO, presents brought in by family for generalized weakness poor mobility decreased p.o. intake. Related Data Home Medications Medication Instructions Recorded Confirmed blood-glucose meter (OneTouch #1 ea 11/02/19 06/22/23 UltraMini kit) comp.stocking,knee,long,medium #2 units 06/01/20 06/22/23 acetaminophen 500 mg capsule 1,000 mg PO Q6H PRN 05/13/22 06/22/23 apixaban 5 mg tablet (Eliquis) 5 mg PO BID #180 tabs 05/15/22 06/22/23 blood sugar diagnostic (Blood #100 ea 05/15/22 06/22/23 Glucose Test strips) lancets #100 ea 05/15/22 06/22/23 albuterol sulfate 90 mcg/actuation 2 puff inhalation QID PRN SOB #18 06/02/22 06/22/23 aerosol inhaler grams atorvastatin 80 mg tablet 80 mg PO DAILY #90 tabs 08/27/22 06/22/23 fluticasone propionate 110 2 puff inhalation BID #12 grams 09/05/22 06/22/23 mcg/actuation HFA aerosol inhaler (Flovent HFA) glipizide 5 mg tablet, extended 5 mg PO DAILY #90 tab-caps 02/09/23 06/22/23 release 24 hr tiotropium 2.5 mcg-olodaterol 2.5 2 puff inhalation DAILY #4 grams 03/04/23 06/22/23 mcg/actuation mist for inhalation (Stiolto Respimat) Circaids #1 ea 04/03/23 06/22/23 gabapentin 100 mg capsule 100 mg PO BID 05/15/23 06/22/23 lanolin alcohols-mineral 1 applic topical .COMPLEX 05/15/23 06/22/23 oil-w.petrolatum-ceresin topical cream (Minerin Creme topical) nystatin 100,000 unit/gram topical 1 applic topical BID #30 grams 05/15/23 06/22/23 powder torsemide 20 mg tablet 20 mg PO DAILY 05/15/23 06/22/23 tramadol 50 mg tablet 50 mg PO Q8H PRN pain #21 tabs 06/01/23 06/22/23 amiodarone 200 mg tablet (Pacerone) 400 mg (2 x 200 mg) PO BID #90 tabs 06/17/23 06/22/23 aspirin 81 mg tablet,delayed 81 mg PO DAILY #60 tabs 06/17/23 06/22/23 release metoprolol succinate 25 mg 25 mg PO Q12H #90 tabs 06/17/23 06/22/23 tablet,extended release 24 hr midodrine 2.5 mg tablet 5 mg (2 x 2.5 mg) PO TID #120 tabs 06/17/23 06/22/23 Previous Rx's Medication Instructions Recorded blood-glucose meter (OneTouch #1 ea 11/02/19 UltraMini kit) comp.stocking,knee,long,medium #2 units 06/01/20 apixaban 5 mg tablet (Eliquis) 5 mg PO BID #180 tabs 05/15/22 blood sugar diagnostic (Blood #100 ea 05/15/22 Glucose Test strips) lancets #100 ea 05/15/22 albuterol sulfate 90 mcg/actuation 2 puff inhalation QID PRN SOB #18 06/02/22 aerosol inhaler grams atorvastatin 80 mg tablet 80 mg PO DAILY #90 tabs 08/27/22 fluticasone propionate 110 2 puff inhalation BID #12 grams 09/05/22 mcg/actuation HFA aerosol inhaler (Flovent HFA) glipizide 5 mg tablet, extended 5 mg PO DAILY #90 tab-caps 02/09/23 release 24 hr tiotropium 2.5 mcg-olodaterol 2.5 2 puff inhalation DAILY #4 grams 03/04/23 mcg/actuation mist for inhalation (Stiolto Respimat) Circaids #1 ea 04/03/23 nystatin 100,000 unit/gram topical 1 applic topical BID #30 grams 05/15/23 powder tramadol 50 mg tablet 50 mg PO Q8H PRN pain #21 tabs 06/01/23 amiodarone 200 mg tablet (Pacerone) 400 mg (2 x 200 mg) PO BID #90 tabs 06/17/23 aspirin 81 mg tablet,delayed 81 mg PO DAILY #60 tabs 06/17/23 release metoprolol succinate 25 mg 25 mg PO Q12H #90 tabs 06/17/23 tablet,extended release 24 hr midodrine 2.5 mg tablet 5 mg (2 x 2.5 mg) PO TID #120 tabs 06/17/23 Allergies Allergy/AdvReac Type Severity Reaction Status Date / Time shellfish derived Allergy Intermediate Hives Verified 06/05/23 18:46 house dust Allergy Mild Other (See Verified 06/05/23 18:46 Comment) hay fever Allergy Mild runny nose Uncoded 06/05/23 18:46 and cough General Stated Complaint: GenMedical MONY: 3 Review of Systems Narrative: Review of Systems Constitutional: Fatigue generalized weakness decreased p.o. intake Eyes: negative ENT: negative Cardiovascular: negative Respiratory: negative Gastrointestinal: negative : negative Musculoskeletal: negative Skin: negative Neurologic: negative Psych: negative Exam Narrative Exam Narrative: Physical Examination General: alert, awake, cooperative, resting comfortably, no acute distress HEENT: normocephalic, atraumatic; PERRL, EOM intact, conjunctiva normal; drying of oral mucosa Neck: supple, trachea midline; full ROM Chest: normal to inspection Respiratory: normal respiratory effort, speaking in full sentences, clear to auscultation, no wheezing, rales or rhonchi Cardiac: regular rate, regular rhythm, S1S2 intact, no murmurs rubs or gallops GI: abdomen soft, non-tender, non-distended; no palpable mass or hepatosplenomegaly Skin: no lesions, rashes or trauma appreciated; jaundice Neuro: AAOx3, normal speech, moving all extremities Extremities: Profound edema to bilateral lower extremities below the level of the knees, weeping chronic venous stasis ulcers bilateral lower extremities Psych: Appropriate mood and affect Course Vital Signs Vital signs: Vital Signs Temperature 35 C L 06/22/23 13:23 Respiratory Rate 18 06/22/23 13:23 Temperature 35 C L 06/22/23 13:23 Temperature Source Tympanic 06/22/23 13:23 Respiratory Rate 18 06/22/23 13:23 Oxygen Delivery Method Room Air 06/22/23 13:23 Oxygen Flow Rate 0 06/22/23 13:23 Pain Level 5 06/22/23 13:23 Lab/Test Results Lab/Test Results: 06/22/23 13:36 Blood Blood Culture - Pending 06/22/23 13:36 Blood Blood Culture - Pending Procedures Central Line Placement Right IJ: Time Out Performed: Yes Patient Placed on Monitor/Pulse Ox: Yes MD Prep: mask, gown and gloves Central Line Prep: Chlorhexidine scrub Local Anesthetic: Lidocaine 1% Amount of anesthesia used (mL): 2 Ultrasound Used for Placement: Yes Central Line Lumen Inserted: triple Post Procedure: good blood return and all ports aspirated, flushed, capped Patient Tolerated Procedure: well Medical Decision Making 72-year-old male history of hepatic steatosis, CHF CKD diabetes, recent pneumonia with LORETO presents with generalized weakness fatigue decreased p.o. intake decreased mobility, bilateral lower extremity chronic venous stasis ulcers weeping edema below the level of knees bilaterally, patient alert interactive nonfocal moving all extremities to command, afebrile, no respiratory distress, low BP on arrival 75 systolic pulse of 68. High clinical suspicion for low oncotic pressure related to chronic liver disease and kidney disease must also consider infectious etiology such as persistent pneumonia versus bacteremia versus less likely UTI no evidence of encephalitis or meningitis, no chest pain or shortness of breath likely component of chronic CHF however appears to be third spacing and likely intravascularly dry. Will start with light fluid bolus 500 cc NS, will consider adding albumin given low BP and concern for low oncotic pressure. Will screen for infectious etiologies with chest x-ray urinalysis COVID flu RSV swab, blood cultures. Patient will need hospitalization and likely placement in rehabilitation 16: 14 patient developed profound hypotension, noted to have worsening LORETO and severe hyperkalemia, calcium gluconate albuterol insulin and dextrose were administered as well as sodium bicarbonate, patient ordered for 2 units RBC due to anemia, albumin and crystalloid administered, concern the patient will need dialysis. Patient started on peripheral norepinephrine, then transition to right IJ central line. Placing calls to [facility] and [facility] for transfer to ICU. Discussed critical illness with patient and family patient is a full code. 17:33 patient accepted [facility] ICU excepting physician Dr. Lucio Jackson. Downtrending lactate, improving EKG with narrowing of QRS complex, improving blood pressure on norepinephrine. Evaluated patient's peritoneum does have chronic edema and some macerated skin breakdown no crepitus bulla induration or erythema to suggest Ricardo's gangrene. Patient and family amenable to transfer. Quality:[facility] Health Related Social Needs: No Data to Display Critical Care Time Critical Care Time Critical Care Time: Yes Total Critical Care Time: 30 Attestation: Critical care time spent at the bedside assessing patient interpreting labs interpreting imaging, placing central line and patient with critical LORETO hyperkalemia hypotension requiring emergent dialysis and ICU transfer [facility] All Active Problems (Updated 06/22/23 @ 17:45 by Faustino Cochran MD) Acute hyperkalemia (Acute) Metabolic acidosis (Acute) Acute hypotension (Acute) LORETO (acute kidney injury) (Acute) Acute kidney injury superimposed on chronic kidney disease (Acute) Lymphedema (Acute) PVD (peripheral vascular disease) (Chronic) Edema (Acute) Venous (peripheral) insufficiency (Acute) Erythematous rash (Acute) Chronic venous stasis dermatitis (Acute) Skin tear of left lower leg without complication (Acute) left forefoot, just distal to ankle fold Edema of lower extremity (Acute) presumed venous insuff; PAD? Lymphedema? Weeks TBD Tinea (Acute) NAFLD (nonalcoholic fatty liver disease) (Acute) [facility] Gastro Note 12/25/22 Iron deficiency anemia (Acute) Pleural nodule (Acute) Renal calculus, left (Acute) Hepatic steatosis (Acute) Ascites (Acute) Pleural effusion (Acute 06/26/22) Cardiomyopathy (Chronic) CAD (coronary artery disease) (Chronic) Corns and callosities (Acute) Nail dystrophy (Acute) Hypercapnic respiratory failure (Acute) Heart failure, systolic, chronic (Acute) Recurrent infections (Chronic) H/o recurrent leg cellulitis and sepsis CHF (congestive heart failure) (Acute) 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 2 diabetes mellitus (Chronic ~10/2019) Atrial fibrillation (Chronic) Psoriasis (Chronic) Tinea pedis (Acute 10/29/20) [facility] Inf Disease Vitamin B12 deficiency (Chronic) Stasis dermatitis of both legs (Acute) CKD (chronic kidney disease) (Acute) CKD3, Cr 1.4-1.9 Essential hypertension (Chronic) Type 2 diabetes mellitus (Chronic) Venous insufficiency (Chronic) COPD (chronic obstructive pulmonary disease) with emphysema (Chronic) Obesity (Chronic) Hyperlipidemia, unspecified (Chronic) Tobacco use disorder (Chronic) Medical History Palliative care patient NSTEMI (non-ST elevated myocardial infarction) Sepsis syndrome Hypothyroidism Surgical History History of abdominal paracentesis (~08/27/22) S[facility] Right-Age 17 Orchiectomy, Radical Left, s/p trauma Colonoscopy - MAC (11/10/16) Family History Father , [place]? at age 79. Essential hypertension Myocardial infarction Maternal Aunt Neoplasm Adnexa NOS Maternal Grandmother Neoplasm Adnexa NOS Mother , CVA & PNA at age 81. Essential hypertension Stroke Paternal Grandfather Myocardial infarction Social History (Updated 06/05/23 @ 23:05 by Raymond Hernandez) Smoking/Tobacco Use Status: Former Tobacco Use Smoking risk assessment performed?: Yes Alcohol Intake: current Alcohol Intake frequency: holidays/special occasions only Details: no recent alcohol Drug use: Never Substance use type: does not use Adopted: No Caregiver/Support person: No Household members: spouse, family and children Housing: house Number of Children: 2 number of grandchildren: 4 Communication Needs: None Education Level: college Details: Some College Do you need help understanding health information?: Rarely Pets and animals: No Sexually active: No Do you think of yourself as: straight/heterosexual Current gender identity: male What is your relationship status?: How often do you talk on the phone with friends or family?: once per week How often do you get together with friends or relatives?: once per week Do you belong to any clubs or organized social groups?: no Panel score (0-1 are the most socially isolated patients): 1 What type of physical activity do you participate in: resistance training Duration: < 15 minutes/day Frequency: 1-2 times per week Chantell/Denominational: Restorationist Special chantell needs: No Seatbelt use: always Drive intox or ride w/intox cryogenic transport driver: No Do you feel safe at home: Yes Do you feel safe in your relationship?: Yes Additional Social history: Retired, lives in [place] with , father in law, and son.
[2023-06-22] MEDS: ALBUMIN HUMAN 25 GM/100 ML BTL IVPB (14:17)
[2023-06-22] MEDS: Normal Saline 500 ML 1000 ML IV (14:21)
[2023-06-22 14:24] LABS: Abs Immature Grans 0.18 10^3/uL (0.0-0.06); Absolute Basophil Count 0.03 10^3/uL (0.0-0.2); Absolute Eosinophil Count 0.13 10^3/uL (0.0-0.7); Absolute Lymphocyte Count 0.61 10^3/uL (1.2-3.4); Absolute Monocyte Count 0.88 10^3/uL (0.1-0.8); Absolute Neutrophil Count 7.41 10^3/uL (1.2-6.7); Basophils % 0.3; Eosinophils % 1.4; HCT 22.3 % (40.0-50.0); Immature Grans % 1.9; Lymphocytes % 6.6; MCH 28.2 pg (27.0-33.0); MCV 94 fL (80-95); Monocytes % 9.5; Neutrophils % 80.3; Nucleated RBC 0.6 % (0.0-0.3); Platelet Count 345 10^3/uL (130-400); RBC 2.38 10^6/uL (4.36-5.78); RDW 24.2 % (11.8-14.1); WBC 9.24 10^3/uL (4.4-10.8)
[2023-06-22 14:26] LABS: HGB 6.7 g/dL (13.5-17.5)
[2023-06-22 14:29] LABS: Albumin 3.1 g/dL (3.4-5.0)
[2023-06-22 14:43] LABS: INR 2.4 (0.9-1.1); PTT Activated 37.7 sec (23.6-32.8); Prothrombin Time 22.4 sec (9.1-11.1)
[2023-06-22 14:44] LABS: ALT 22 U/L (16-63); AST 20 U/L (15-37); Alkaline Phosphatase 81 U/L (46-116); Anion Gap 19.6 mmol/L (3-11); Bilirubin, Total 1.8 mg/dL (0.2-1.0); CO2 16.4 mmol/L (21.0-32.0); Calcium 8.5 mg/dL (8.5-10.1); Chloride 91 mmol/L (98-107); Estimated GFR 9.56 (mL/min/1.73m2); Glucose 87 mg/dL (74-106); Magnesium 2.8 mg/dL (1.8-2.4); NT-proBNP 4208 pg/mL (<300); Sodium 127 mmol/L (136-145); TSH (W/Ref FT4) 16.62 uIU/mL (0.36-3.74); Total Protein 7.7 g/dL (6.4-8.2)
[2023-06-22 14:45] LABS: Lactate 4.1 mmol/L (0.6-1.4)
[2023-06-22 14:48] LABS: Anisocytosis 2+; Diff Comment RBC Morph Reviewed; Polychromasia Present
[2023-06-22] MEDS: CEFEPIME 2 GM in Normal Saline 100 ML IVPB (14:48)
[2023-06-22 14:49] LABS: Poikilocytes 2+
[2023-06-22 14:50] LABS: BUN 158 mg/dL (7-18); CREATININE 5.9 mg/dL (0.70-1.30); Potassium 7.3 mmol/L (3.5-5.1)
[2023-06-22 15:03] LABS: COVID-19 PCR Negative (Negative); Influenza A PCR Negative (Negative); Influenza B PCR Negative (Negative); RSV PCR Negative (Negative)
[2023-06-22 15:06] LABS: FREE T4 1.07 ng/dL (0.76-1.46)
[2023-06-22] MEDS: Albuterol 2.5 MG/3 ML INH SOLN VIAL UPD (15:08)
[2023-06-22] MEDS: Dextrose 50%-Water 25 GM/50 ML SYR IVP (15:08)
[2023-06-22] MEDS: CALCIUM GLUCONATE in NaCl 1 GM/50 ML BAG IVPB ×2 (15:08→17:00)
[2023-06-22] MEDS: Insulin REGULAR-Human 100 UNITS/ML UNIT IV (15:11)
[2023-06-22] MEDS: Sodium Bicarbonate 50 MEQ/50 ML SYR IVP (15:23)
[2023-06-22] MEDS: Norepinephrine in D5W 8 MG/250 ML BAG 9.375 MG IV (15:24)
[2023-06-22 15:40] LABS: Source Nasopharynx
--- NOTE | 2023-06-22 16:05 | DI.RAD_ITS ---
Exam(s) XR PORTABLE CHEST AP POST LINE EXAM: XR PORTABLE CHEST AP POST LINE CLINICAL HISTORY: confirmation of cental line placement TECHNIQUE: 2D digital imaging was performed. COMPARISON: CR XR PORTABLE CHEST AP from 06/12/2023 CR XR PORTABLE CHEST AP from 06/22/2023 FINDINGS: A central venous catheter has been inserted via the right internal jugular. The tip lies in the supe rior vena cava. LUNGS: Streaky densities remain present at the left lung base. Tiny bilateral pleural effusions. No pneumothorax. HEART: Enlarged. Status post CABG. AORTA: Normal diameter. BONES: Unremarkable for age. Soft tissues: Unremarkable. IMPRESSION: Satisfactory placement of central line. DATA REPOSITORY: RADIATION DOSE DELIVERED:
[2023-06-22 16:23] LABS: BE (Venous) -10 mmol/L (-2-3); HCO3 (Venous) 17 mmol/L (23-28); O2 Sat (Venous) 54 %; TCO2 (Venous) 18 mmol/L (24-29); pCO2 (Venous) 38 mmHg (41-51); pH (Venous) 7.27 (7.31-7.41); pO2 (Venous) 34 mmHg
[2023-06-22 16:27] LABS: Lactate 2.9 mmol/L (0.6-1.4)
[2023-06-22 16:34] LABS: ALT 17 U/L (16-63); AST 18 U/L (15-37); Albumin 3.3 g/dL (3.4-5.0); Alkaline Phosphatase 75 U/L (46-116); Anion Gap 17.3 mmol/L (3-11); Bilirubin, Total 1.8 mg/dL (0.2-1.0); CO2 17.7 mmol/L (21.0-32.0); Calcium 8.4 mg/dL (8.5-10.1); Chloride 93 mmol/L (98-107); Estimated GFR 9.56 (mL/min/1.73m2); Glucose 137 mg/dL (74-106); Sodium 128 mmol/L (136-145); Total Protein 7.5 g/dL (6.4-8.2)
[2023-06-22 16:37] LABS: BUN 159 mg/dL (7-18); CREATININE 5.9 mg/dL (0.70-1.30); Potassium 6.3 mmol/L (3.5-5.1)
--- NOTE | 2023-06-22 16:45 | RT.EKG_ITS ---
APPROVED REPORT Exam: Resting ECG Reason for Exam: repeat hyperK Patient Location: E HR:77 bpm ECG Measurements Heart Rate 77 AXIS VA 75 P 0 QRSd 183 QRS -111 QT 487 T 39 QTc 551 Conclusion Sinus rhythm...normal P axis, V-rate 60- 99 Probable left atrial enlargement...P >50mS, <-0.10mV V1 Right bundle branch block...QRSd>120, terminal axis(90,270) Anterior infarct, old...Q >40mS, abnormal ST-T, V2-V5 wide, regular rhythm, no defiinitive p waves; consistent with patients known severe hyperkalemia
[2023-06-22] MEDS: Normal Saline 1,000 ML 1000 ML IV (17:04)
[2023-06-22 17:50] LABS: Bilirubin Small (Negative); Blood Moderate (Negative); Clarity Clear (Clear); Glucose Negative (Negative); Ketones 15 mg/dL (Negative); Leukocyte Esterase Trace (Negative); Nitrite Negative (Negative); Urobilinogen 0.2 mg/dL (Up to 0.2)
[2023-06-22 18:09] LABS: Epithelial Cells Few HPF (Negative)
[2023-06-22 18:10] LABS: Bacteria Rare HPF (Negative); C & S Indicated? Yes; Casts 5-10 Hyaline LPF (Negative); Crystals Negative HPF (Negative); Mucus Trace (Negative); Other Cells Mod Transitional (Negative)
--- NOTE | 2023-06-22 18:10 | NUR.NOTE ---
SKIN ASSESSMENT: BLE mottled, dusky, wet weeping edema, bloody show from skin tears, dressings in place wet and soiled and stuck to wounds, concerns for not being changed appropriately, bilateral groins excoriated and bleeding and blisters, bleeding excoriation to perineum, incontinent brief soiled and urine and feces dried to patient, generally jaundiced, will initiate APS referral, weak and lethargic, blood pressure low, septic shock and sepsis protocol initiated.
--- NOTE | 2023-06-22 19:30 | NUR.NOTE ---
1840: blood infusing when pt left with [facility] to transport to [facility], agri business agent to complete infusion en-route, norepinephrine infusing with transport, agri business agent to manage infusion/titration en-route
== END 2023-06-22 18:34 | disposition short-term general hospital (02) ==
PROVIDERS: Emergency Provider Emergency Medicine; PCP Family Medicine
DX: R53.1 Weakness (principal); N17.9 Acute kidney failure, unspecified; I95.9 Hypotension, unspecified; E87.20 Acidosis, unspecified; E87.5 Hyperkalemia; I13.0 Hypertensive heart and chronic kidney disease with heart failure and stage 1 through stage 4 chronic kidney disease, or unspecified chronic kidney disease; I50.9 Heart failure, unspecified; N18.30 Chronic kidney disease, stage 3 unspecified; E11.22 Type 2 diabetes mellitus with diabetic chronic kidney disease; I25.10 Atherosclerotic heart disease of native coronary artery without angina pectoris; I25.2 Old myocardial infarction; I48.91 Unspecified atrial fibrillation; Z11.52 Encounter for screening for COVID-19; Z95.1 Presence of aortocoronary bypass graft; Z79.01 Long term (current) use of anticoagulants; Z79.84 Long term (current) use of oral hypoglycemic drugs; Z79.82 Long term (current) use of aspirin; Z87.891 Personal history of nicotine dependence
CPT/HCPCS: 71045; 80053; 82805; 86850; 86900; 86901; 86920; 87040; 87637; 93005; 94640; 96365; 96366; 96367; 99285; 81003; 81015; 82040; 83605; 83735; 83880; 84439; 84443; 85025; 85610; 85730; 87086; 93010; J0613; J0692; J1815; J7613; P9016; P9047